=== PATIENT | female | born 1965 | race Caucasian/White ===

== ENCOUNTER 2020-08-06 15:20 | Emergency (ER) | payer BC ==
[~2020-08-06] VITALS: Ht 163 cm; Wt 85.0 kg
--- NOTE | 2020-08-06 15:50 | ED Chest Pain ---
General Chief Complaint: Chest Pain Stated Complaint: SPITTING UP BLOOD/CHEST PAIN Source: patient Exam Limitations: no limitations History of Present Illness Date Seen by Provider: Aug 06, 2020 Time Seen by Provider: 15:48 Initial Comments ER with reports of spitting up blood. She is on Eliquis for history of atrial fibrillation and congestive heart failure. She admits she is not entirely compliant with taking it and she takes it when she remembers. 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 She came off of quarantine for Covid after having it, she was released the day after [place]. She has persistent dyspnea on exertion, chest pain. Today after having a bowel movement she noticed some blood in her mouth that she spit out. She does not believe that she coughed it up nor did she vomited up, she is not sure where it came from. Timing/Duration: changing over time Severity/Quality: moderate Location: central Radiation: no radiation Activities at Onset: none ASA po [employer]IC: No NTG SL [employer] MECH[employer]IC: No Associated Symptoms: shortness of breath Allergies and Home Medications Allergies Coded Allergies: No Allergy Information Available (Unverified , 08/06/20) Patient Home Medication List Home Medication List Reviewed: Yes Review of Systems Review of Systems Constitutional: see HPI; No chills, No fever EENTM: No Symptoms Reported Respiratory: See HPI; Denies Cough; Shortness of Air Cardiovascular: See HPI, Chest Pain Gastrointestinal: No Symptoms Reported Genitourinary: No Symptoms Reported Musculoskeletal: no symptoms reported Skin: no symptoms reported Psychiatric/Neurological: No Symptoms Reported, Emotional Problems Hematologic/Lymphatic: No Symptoms Reported Physical Exam Vital Signs Vital Signs - First Documented Capillary Refill : Height, Weight, BMI Height: '" Weight: lbs. oz. kg; BMI Method: General Appearance: No Apparent Distress, WD/WN HEENT: Other (Upon inspection of the oropharynx there is some hyperemia and a very small amount of blood in the upper oropharynx. There is no blood in either nostril. Additionally this tissue in the upper oropharynx is inflamed.) Neck: Full Range of Motion, Normal Inspection Respiratory: Lungs Clear, Normal Breath Sounds, No Accessory Muscle Use, No Respiratory Distress Cardiovascular: Regular Rate, Rhythm, Normal Peripheral Pulses Gastrointestinal: Normal Bowel Sounds, Non Tender, Soft Extremity: Normal Capillary Refill, Normal Inspection Neurologic/Psychiatric: Alert, Oriented x3 Skin: Normal Color, Warm/Dry Progress/Results/Core Measures Results/Orders Lab Results Laboratory Tests Test 08/06/20 15:58 Range/Units White Blood Count 5.2 4.3-11.0 10^3/uL Red Blood Count 4.15 3.80-5.11 10^6/uL Hemoglobin 12.0 11.5-16.0 g/dL Hematocrit 36 35-52 % Mean Corpuscular Volume 86 80-99 fL Mean Corpuscular Hemoglobin 29 25-34 pg Mean Corpuscular Hemoglobin Concent 34 32-36 g/dL Red Cell Distribution Width 13.0 10.0-14.5 % Platelet Count 223 130-400 10^3/uL Mean Platelet Volume 10.2 9.0-12.2 fL Immature Granulocyte % (Auto) 0 % Neutrophils (%) (Auto) 48 42-75 % Lymphocytes (%) (Auto) 41 12-44 % Monocytes (%) (Auto) 9 0-12 % Eosinophils (%) (Auto) 2 0-10 % Basophils (%) (Auto) 1 0-10 % Neutrophils # (Auto) 2.5 1.8-7.8 10^3/uL Lymphocytes # (Auto) 2.1 1.0-4.0 10^3/uL Monocytes # (Auto) 0.4 0.0-1.0 10^3/uL Eosinophils # (Auto) 0.1 0.0-0.3 10^3/uL Basophils # (Auto) 0.0 0.0-0.1 10^3/uL Immature Granulocyte # (Auto) 0.0 0.0-0.1 10^3/uL D-Dimer 0.30 0.00-0.49 UG/ML Sodium Level 140 135-145 MMOL/L Potassium Level 3.6 3.6-5.0 MMOL/L Chloride Level 106 98-107 MMOL/L Carbon Dioxide Level 27 21-32 MMOL/L Anion Gap 7 5-14 MMOL/L Blood Urea Nitrogen 16 7-18 MG/DL Creatinine 0.81 0.60-1.30 MG/DL Estimat Glomerular Filtration Rate > 60 BUN/Creatinine Ratio 20 Glucose Level 87 70-105 MG/DL Calcium Level 9.3 8.5-10.1 MG/DL Corrected Calcium 9.1 8.5-10.1 MG/DL Total Bilirubin 0.6 0.1-1.0 MG/DL Aspartate Amino Transf (AST/SGOT) 31 5-34 U/L Alanine Aminotransferase (ALT/SGPT) 34 0-55 U/L Alkaline Phosphatase 77 40-136 U/L Troponin I < 0.028 <0.028 NG/ML C-Reactive Protein High Sensitivity 0.14 0.00-0.50 MG/DL B-Type Natriuretic Peptide 26.1 <100.0 PG/ML Total Protein 7.1 6.4-8.2 GM/DL Albumin 4.2 3.2-4.5 GM/DL My Orders Orders - PIERRE JOSEPH [employer] Cbc With Automated Diff (08/06/20 15:44) Comprehensive Metabolic Panel (08/06/20 15:44) Hs C Reactive Protein (08/06/20 15:44) Fibrin Degradation Products (08/06/20 15:44) Troponin I (08/06/20 15:44) Ekg Tracing (08/06/20 15:44) BNP (08/06/20 15:44) Ct Angio Chest W (08/06/20 15:44) Iohexol Injection (Omnipaque 350 Mg/Ml 1 (08/06/20 16:45) Received Contrast (Hold Metformin- Contr (08/06/20 16:45) Sodium Chloride Flush (Catheter Flush Sy (08/06/20 16:45) Ns (Ivpb) (Sodium Chloride 0.9% Ivpb Bag (08/06/20 16:45) Medications Given in ED Current Medications Medications Dose Ordered Sig/Giselle Route Start Time Stop Time Status Last Admin Dose Admin Iohexol 100 ml ONCE ONCE IV 08/06/20 16:45 08/06/20 16:47 DC 08/06/20 17:05 74 ML Sodium Chloride 10 ml NEEDED PRN IV 08/06/20 16:45 08/06/20 17:05 10 ML Sodium Chloride 100 ml ONCE ONCE IV 08/06/20 16:45 08/06/20 16:47 DC 08/06/20 17:05 80 ML Vital Signs/I&O 08/06/20 08/06/20 15:38 15:38 Temp 36.9 Pulse 72 Resp 18 B/P (MAP) 146/91 (109) Pulse Ox 98 O2 Delivery Room Air Room Air Diagnostic Imaging Diagonstic Imaging: CT Comments NAME: OLESYA NEVES [facility] REC#: [id number] PT STATUS: REG ER : 1965 PHYSICIAN: PIERRE JOSEPH APRN ADMIT DATE: 08/06/20/ER Draft Date of Exam:08/06/20 CT ANGIO CHEST W PROCEDURE: CT angiography of the chest with contrast. TECHNIQUE: Multiple contiguous axial images were obtained through the chest after uneventful bolus administration of intravenous contrast. 3D reconstructed CTA MIP acquisitions were also performed. Auto Exposure Controls were utilized during the CT exam to meet ALARA standards for radiation dose reduction. INDICATION: Chest pain post Covid with hemoptysis There is good opacification of pulmonary arteries. No intraluminal filling defect is identified to indicate embolism. There is mild linear scarring at the level of right minor fissure with linear scarring also seen in the lateral left lower lobe. No significant pleural or pericardial fluid is identified. There is no evidence of pathologic adenopathy. There is mild hiatal hernia. IMPRESSION: Bilateral linear scarring without pulmonary embolism or other acute abnormality seen in the thorax. Dictated on workstation # [id number] Dict: 08/06/20 1711 Trans: 08/06/20 1717 [facility] [id number] Interpreted by: GEMMA VAZQUEZ MD Electronically signed by: Departure Communication (Admissions) Given the normal D-dimer I suspect that the blood in her mouth did not come from the lungs or from PE. She does report a history of Reina's esophagus but has had no recent heartburn or reflux symptoms and she has managed by gastroenterology for this. Given the irritated mucosa in the upper oropharynx I suspect the blood came from this location. She has no sinus congestion or discharge. As such I am not sure that antibiotics would be helpful Impression Primary Impression: Mild epistaxis Additional Impression: Pharyngitis Disposition: HOME, SELF-CARE Condition: Stable Departure-Patient Inst. Decision time for Depature: 17:14 Referrals: JIMY BENNETT MD (PCP/Family) Primary Care Physician Patient Instructions: Nosebleeds (DC) Add. Discharge Instructions: 1. Return to ER for any concerns. Continue with the oral anticoagulants. Follow-up with your doctor this week for recheck. Return to ER for any worsening. Emergency department focuses on treating and ruling out life- threatening diseases. Whenever possible, a diagnosis is given. However, most patients are given an impression based on their history, physical exam, and workup during your brief time in the ER. Information about probable diagnosis and other educational material has been provided. Please take the time to read and understand this information. It is very important that you follow up with a physician as discussed during the visit today. Failure to adhere to your follow-up instructions may lead to severe disability, injury, or so please make sure to keep your appointments or obtain one as requested. PIERRE JOSEPH APRN Aug 06, 2020 15:50
[2020-08-06 16:06] LABS: BASOPHILS % (AUTO) 1 % (0-10); EOSINOPHILS # (AUTO) 0.1 10^3/uL (0.0-0.3); EOSINOPHILS % (AUTO) 2 % (0-10); HEMATOCRIT 36 % (35-52); LYMPHOCYTES # (AUTO) 2.1 10^3/uL (1.0-4.0); LYMPHOCYTES % (AUTO) 41 % (12-44); MEAN CORPUSCULAR HEMOGLOBIN 29 pg (25-34); MEAN CORPUSCULAR HGB CONC 34 g/dL (32-36); MEAN CORPUSCULAR VOLUME 86 fL (80-99); MEAN PLATELET VOLUME 10.2 fL (9.0-12.2); MONOCYTES # (AUTO) 0.4 10^3/uL (0.0-1.0); MONOCYTES % (AUTO) 9 % (0-12); NEUTROPHILS # (AUTO) 2.5 10^3/uL (1.8-7.8); NEUTROPHILS % (AUTO) 48 % (42-75); PLATELET COUNT 223 10^3/uL (130-400); WHITE BLOOD COUNT 5.2 10^3/uL (4.3-11.0)
[2020-08-06 16:25] LABS: ALBUMIN 4.2 GM/DL (3.2-4.5); CHLORIDE 106 MMOL/L (98-107); POTASSIUM 3.6 MMOL/L (3.6-5.0); SODIUM 140 MMOL/L (135-145)
[2020-08-06 16:26] LABS: CALCIUM 9.3 MG/DL (8.5-10.1)
[2020-08-06 16:27] LABS: GLUCOSE 87 MG/DL (70-105); TOTAL PROTEIN 7.1 GM/DL (6.4-8.2)
[2020-08-06 16:28] LABS: CARBON DIOXIDE 27 MMOL/L (21-32)
[2020-08-06 16:29] LABS: BILIRUBIN,TOTAL 0.6 MG/DL (0.1-1.0)
[2020-08-06 16:31] LABS: ALKALINE PHOSPHATASE 77 U/L (40-136); CREATININE SERUM 0.81 MG/DL (0.60-1.30); GFR ESTIMATED > 60
[2020-08-06 16:32] LABS: BUN/CREATININE RATIO 20
[2020-08-06 16:34] LABS: ALANINE AMINOTRANSFERASE 34 U/L (0-55)
[2020-08-06] MEDS ORDERED: NS 100 ML (IVPB) BAG IV ONE (16:45)
[2020-08-06] MEDS ORDERED: CATHETER FLUSH 10 ML SYR IV PRN (16:45)
[2020-08-06] MEDS ORDERED: HOLD METFORMIN - RECEIVED CONTRAST 20 ML VIAL IV SCH (16:45)
[2020-08-06] MEDS ORDERED: IOHEXOL 350 MG/ML 100 ML (OMNIPAQUE 350) VIAL IV ONE (16:45)
--- NOTE | 2020-08-06 17:17 | Diagnostic Imaging Report ---
PROCEDURE: CT angiography of the chest with contrast. TECHNIQUE: Multiple contiguous axial images were obtained through the chest after uneventful bolus administration of intravenous contrast. 3D reconstructed CTA MIP acquisitions were also performed. Auto Exposure Controls were utilized during the CT exam to meet ALARA standards for radiation dose reduction. INDICATION: Chest pain post Covid with hemoptysis. There is good opacification of the pulmonary arteries. No intraluminal filling defect is identified to indicate embolism. There is mild linear scarring at the level of the right minor fissure with linear scarring also seen in the lateral left lower lobe. No significant pleural or pericardial fluid is identified. There is no evidence of pathologic adenopathy. There is mild hiatal hernia. IMPRESSION: Bilateral linear scarring without pulmonary embolism or other acute abnormality seen in the thorax. Dictated by: Dictated on workstation # [id number]
[2020-08-06 17:36] VITALS: BP 147/83
== END 2020-08-06 17:36 | disposition home or self-care (01) ==
LOC: EDUNIT# 15:20 → ER 15:26
DX: R04.0 Epistaxis (principal); J02.9 Acute pharyngitis, unspecified
CPT/HCPCS: 36415; 71275; 80053; 83880; 84484; 85025; 85379; 86141; 93005

== ENCOUNTER → 2020-08-15 | Outpatient (CLI) | payer BC ==
[~2020-08-15] MED LIST: CATHETER FLUSH 10 ML SYR IV PRN; HOLD METFORMIN - RECEIVED CONTRAST 20 ML VIAL IV SCH; IOHEXOL 350 MG/ML 100 ML (OMNIPAQUE 350) VIAL IV ONE; NS 100 ML (IVPB) BAG IV ONE
--- NOTE | 2020-08-15 12:25 | Diagnostic Imaging Report ---
INDICATION: SHORTNESS OF BREATH. TECHNIQUE: Two view chest 12:01 PM CORRELATION STUDY: None FINDINGS: Left-sided dual-chamber pacemaker is present. Heart size upper limits normal. Vasculature within normal limits. The lungs are clear with no consolidating infiltrate. There is no significant pleural effusion or pneumothorax. Slight accentuated thoracic kyphosis with degenerative changes of the thoracic spine. IMPRESSION: 1. Negative for acute abnormality of the chest. Dictated by: Dictated on workstation # [id number]
--- NOTE | 2020-08-15 12:57 | Diagnostic Imaging Report ---
PROCEDURE: CT head without contrast. TECHNIQUE: Multiple contiguous axial images were obtained through the brain without the use of intravenous contrast. Auto Exposure Controls were utilized during the CT exam to meet ALARA standards for radiation dose reduction. INDICATION: Headache and confusion with blurred vision. COMPARISON: No prior studies are available for comparison. FINDINGS: The ventricles and sulci are within normal limits. No sulcal effacement or midline shift is identified. No acute intra-axial or extra-axial hemorrhage is detected. Cisterns are patent. Visualized paranasal sinuses are clear. IMPRESSION: No acute intracranial process is detected. Dictated by: Dictated on workstation # [id number]
--- NOTE | 2020-08-15 13:04 | Diagnostic Imaging Report ---
PROCEDURE: CT angiography of the chest with contrast. TECHNIQUE: Multiple contiguous axial images were obtained through the chest after uneventful bolus administration of intravenous contrast. 3D reconstructed CTA MIP acquisitions were also performed. Auto Exposure Controls were utilized during the CT exam to meet ALARA standards for radiation dose reduction. INDICATION: Chest pain and shortness of air as well as cough. COMPARISON: Correlation is made with prior CT angiogram of the chest from 08/06/2020. FINDINGS: Left chest wall cardiac pacemaker is in place. Evaluation of the pulmonary arterial system is without evidence of thromboembolism. No filling defects are seen within central, lobar, or segmental branches. Thoracic aorta is normal in caliber. The heart is enlarged. There is no pericardial or pleural fluid. There is a moderate-sized hiatal hernia. Lungs appear to be clear. No infiltrate or mass is identified. Upper abdomen is unremarkable. IMPRESSION: 1. No evidence of pulmonary embolism or thoracic aortic dissection. 2. Moderate-sized hiatal hernia. 3. No acute feature is detected. Dictated by: Dictated on workstation # [id number]
== END ==
LOC: RAD 12:15
PROVIDERS: ATTEND Family Medicine
DX: R51.9 Headache, unspecified (principal); K44.9 Diaphragmatic hernia without obstruction or gangrene; R06.02 Shortness of breath; R05 Cough; R41.0 Disorientation, unspecified
CPT/HCPCS: 70450; 71046; 71275

== ENCOUNTER 2020-09-28 06:26 | Emergency (ER) | payer BC ==
[~2020-09-28] VITALS: Ht 162.6 cm; Wt 89.9 kg
[~2020-09-28 06:26] MED LIST changes: +APIX5TAB PO; -CATHETER FLUSH 10 ML SYR IV PRN; +DIAZ5TAB49 PO; +FURO40TA4 PO; -HOLD METFORMIN - RECEIVED CONTRAST 20 ML VIAL IV SCH; -IOHEXOL 350 MG/ML 100 ML (OMNIPAQUE 350) VIAL IV ONE; +LEVO125C4 PO; -NS 100 ML (IVPB) BAG IV ONE
[2020-09-28] MEDS ORDERED: FAMOTIDINE 20MG/2ML IV (PEPCID) IV STA (06:56)
[2020-09-28] MEDS ORDERED: ANTACID SUSP 30 ML UDC (MYLANTA) PO ONE (07:00)
[2020-09-28] MEDS ORDERED: LIDOCAINE 2% VISCOUS 15 ML UDC PO ONE (07:00)
--- NOTE | 2020-09-28 07:05 | ED Abdominal Pain ---
General Chief Complaint: Abdominal/GI Problems Stated Complaint: ABD PAIN,BACK,NAUSEA Nursing Triage Note: TO ED VIA POV AND AMBULATORY TO ROM 5. PT STATES SHE IS SUPPOSED TO HAVE LABWORK DONE HERE AT [address] SCHEDULED AT 0800, BUT IS HAVING "EXCRUTIATING ABD PAIN", NAUSEA FOR SEVERAL DAYS. HAS EGD AND COLONOSCOPY SCHEDULED FOR 10/03/20. Sepsis Screen: No Definite Risk Source of Information: Patient Exam Limitations: No Limitations History of Present Illness Date Seen by Provider: Sep 28, 2020 Time Seen by Provider: 06:42 Initial Comments Patient presents to the ER by private conveyance with chief complaint of about 3 or 4 days progressively worsening, constant epigastric abdominal pain. She says it is worse with eating. She is had some loose stools with blood in it. She is also had some spitting up of blood. She has a history of significant Reina's esophagitis, GERD, hiatal hernia status post laparoscopic surgery repair. She is not having any nausea fever or chills. She denies a history of diverticulitis. She sees a boot and saddle repair person on [place] but she cannot remember the name. She had Covid a few months ago and was following up with Dr. Costa, pulmonology with a CT and lab outpatient today and because of the pain decided instead to check into the ER. She is on Nexium for her acid reflux. She has a history of atrial fibrillation status post multiple ablations on Eliquis followed by Dr. Grider at [facility]. Dr. Nunn in [place] is her primary care doctor. No history of diabetes or pancreatitis. She has had cholecystectomy, appendectomy, hysterectomy as well as surgical hiatal hernia repair. She has endoscopy scheduled 5 days from now upper and lower pursuant to her recent bleeding. She rates her pain as a 8 out of 10. She endorses malodorous urine today. Allergies and Home Medications Allergies Coded Allergies: Latex, Natural Rubber (Unverified Allergy, Intermediate, Shortness of Breath, 09/27/20) Home Medications Apixaban 5 Mg Tablet, 5 MG PO DAILY, (Reported) Diazepam 5 Mg Tablet, 5 MG PO PRN, (Reported) Furosemide 40 Mg Tablet, 40 MG PO DAILY, (Reported) Levothyroxine Sodium 125 Mcg Capsule, 125 MCG PO DAILY, (Reported) Patient Home Medication List Home Medication List Reviewed: Yes Review of Systems Review of Systems Constitutional: No chills, No diaphoresis EENTM: No Blurred Vision, No Eye Pain Respiratory: Denies Cough, Denies Shortness of Air Cardiovascular: Denies Chest Pain, Denies Lightheadedness Gastrointestinal: Denies Abdomen Distended; Abdominal Pain; Denies Constipated; Diarrhea (Nonwatery, loose stool with occasional bright red blood); Denies Nausea, Denies Poor Fluid Intake, Denies Vomiting Genitourinary: See HPI; Denies Burning, Denies Discharge; Other (Malodorous) Musculoskeletal: No back pain, No joint pain Psychiatric/Neurological: Anxiety; Denies Depressed All Other Systems Reviewed Negative Unless Noted: Yes Past Kxlvdic-Tacnqh-Cmfpuq Hx Patient Social History Alcohol Use: Denies Use Number of Drinks Today: GG Alcohol Beverage of Choice: Whiskey 2nd Hand Smoke Exposure: No Recent Infectious Disease Expo: No Recent Hopitalizations: Yes Seasonal Allergies Seasonal Allergies: Yes Past Medical History Appendectomy, Bladder Surgery, Gallbladder, Hysterectomy, Pacemaker, Tonsillectomy Cardiac: Yes (ABLATION, CHF) Atrial Fibrillation, Valvular Heart Disease Neurological: Yes Headaches /Migraines 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 oz. kg; 34.00 BMI Method: General Appearance: WD/WN, mild distress HEENT: PERRL/EOMI, pharynx normal Neck: full range of motion, normal inspection Respiratory: lungs clear, normal breath sounds, no respiratory distress, no accessory muscle use Cardiovascular: normal peripheral pulses, regular rate, rhythm Peripheral Pulses: 2+ Radial Pulses (R), 2+ Radial Pulses (L) Gastrointestinal: normal bowel sounds, non tender, soft Extremities: normal range of motion, normal inspection, normal capillary refill Neurologic/Psychiatric: alert, normal mood/affect, oriented x 3 Skin: normal color, warm/dry Progress/Results/Core Measures Results/Orders Lab Results Laboratory Tests Test 09/28/20 07:05 09/28/20 07:20 Range/Units Urine Color YELLOW Urine Clarity CLEAR Urine pH 7.0 5-9 Urine Specific [place] 1.020 1.016-1.022 Urine Protein NEGATIVE NEGATIVE Urine Glucose (UA) NEGATIVE NEGATIVE Urine Ketones NEGATIVE NEGATIVE Urine Nitrite NEGATIVE NEGATIVE Urine Bilirubin NEGATIVE NEGATIVE Urine Urobilinogen 0.2 < = 1.0 MG/DL Urine Leukocyte Esterase NEGATIVE NEGATIVE Urine RBC (Auto) TRACE-I NEGATIVE Urine RBC 2-5 H /HPF Urine WBC NONE /HPF Urine Squamous Epithelial Cells 0-2 /HPF Urine Crystals NONE /LPF Urine Bacteria NEGATIVE /HPF Urine Casts NONE /LPF Urine Mucus NEGATIVE /LPF Urine Culture Indicated NO White Blood Count 5.3 4.3-11.0 10^3/uL Red Blood Count 4.55 3.80-5.11 10^6/uL Hemoglobin 13.3 11.5-16.0 g/dL Hematocrit 39 35-52 % Mean Corpuscular Volume 86 80-99 fL Mean Corpuscular Hemoglobin 29 25-34 pg Mean Corpuscular Hemoglobin Concent 34 32-36 g/dL Red Cell Distribution Width 13.0 10.0-14.5 % Platelet Count 239 130-400 10^3/uL Mean Platelet Volume 10.1 9.0-12.2 fL Immature Granulocyte % (Auto) 0 % Neutrophils (%) (Auto) 45 42-75 % Lymphocytes (%) (Auto) 44 12-44 % Monocytes (%) (Auto) 8 0-12 % Eosinophils (%) (Auto) 3 0-10 % Basophils (%) (Auto) 1 0-10 % Neutrophils # (Auto) 2.4 1.8-7.8 10^3/uL Lymphocytes # (Auto) 2.3 1.0-4.0 10^3/uL Monocytes # (Auto) 0.4 0.0-1.0 10^3/uL Eosinophils # (Auto) 0.1 0.0-0.3 10^3/uL Basophils # (Auto) 0.0 0.0-0.1 10^3/uL Immature Granulocyte # (Auto) 0.0 0.0-0.1 10^3/uL Sodium Level 140 135-145 MMOL/L Potassium Level 4.1 3.6-5.0 MMOL/L Chloride Level 108 H 98-107 MMOL/L Carbon Dioxide Level 22 21-32 MMOL/L Anion Gap 10 5-14 MMOL/L Blood Urea Nitrogen 23 H 7-18 MG/DL Creatinine 0.78 0.60-1.30 MG/DL Estimat Glomerular Filtration Rate > 60 BUN/Creatinine Ratio 29 Glucose Level 104 70-105 MG/DL Calcium Level 9.3 8.5-10.1 MG/DL Corrected Calcium 8.9 8.5-10.1 MG/DL Total Bilirubin 0.5 0.1-1.0 MG/DL Aspartate Amino Transf (AST/SGOT) 21 5-34 U/L Alanine Aminotransferase (ALT/SGPT) 28 0-55 U/L Alkaline Phosphatase 96 40-136 U/L Total Protein 7.7 6.4-8.2 GM/DL Albumin 4.5 3.2-4.5 GM/DL Lipase 30 8-78 U/L My Orders Orders - HUBERT GENTILE Ed Iv/Invasive Line Start (09/28/20 06:56) Ns Iv 1000 Ml (Sodium Chloride 0.9%) (09/28/20 07:00) Lidocaine 2% Viscous 15 Ml (Xylocaine Vi (09/28/20 07:00) Antacid Suspension (Mylanta Suspension (09/28/20 07:00) Famotidine Injection (Pepcid Injection) (09/28/20 06:56) Cbc With Automated Diff (09/28/20 06:56) Comprehensive Metabolic Panel (09/28/20 06:56) Lipase (09/28/20 06:56) Ua Culture If Indicated (09/28/20 06:56) Ct Chest/Abdomen/Pelvis W (09/28/20 07:17) Iohexol Injection (Omnipaque 350 Mg/Ml 1 (09/28/20 08:00) Received Contrast (Hold Metformin- Contr (09/28/20 08:00) Sodium Chloride Flush (Catheter Flush Sy (09/28/20 08:00) Ns (Ivpb) (Sodium Chloride 0.9% Ivpb Bag (09/28/20 08:00) Fentanyl Inj (Sublimaze Injection) (09/28/20 08:15) Medications Given in ED Current Medications Medications Dose Ordered Sig/Giselle Route Start Time Stop Time Status Last Admin Dose Admin Al Hydrox/Mg Hydrox/Simethicone 30 ml ONCE ONCE PO 09/28/20 07:00 09/28/20 07:01 DC 09/28/20 07:43 30 ML Fentanyl Citrate 25 mcg ONCE ONCE IVP 09/28/20 08:15 09/28/20 08:16 DC 09/28/20 08:17 25 MCG Iohexol 100 ml ONCE ONCE IV 09/28/20 08:00 09/28/20 08:01 DC 09/28/20 07:53 100 ML Lidocaine HCl 15 ml ONCE ONCE PO 09/28/20 07:00 09/28/20 07:01 DC 09/28/20 07:39 15 ML Sodium Chloride 10 ml NEEDED PRN IV 09/28/20 08:00 09/28/20 07:53 10 ML Sodium Chloride 100 ml ONCE ONCE IV 09/28/20 08:00 09/28/20 08:01 DC 09/28/20 07:53 80 ML Vital Signs/I&O 09/28/20 06:50 Temp 36.2 Pulse 80 Resp 16 B/P (MAP) 159/91 (113) O2 Delivery Room Air Blood Pressure Mean: 113 Progress Progress Note #1: Time: 07:10 Progress Note Patient could be having pancreatitis/diverticulitis or other complications related to her inflamed esophagitis/gastritis. We will start with a GI cocktail and it is CT scan since she is having some bloody stool. She is on Eliquis and she has endoscopy already scheduled. We will get some labs including a lipase. She complained of malodorous urine so we will check a urinalysis. The patient had a CT of her chest scheduled by her claims specialist for post Covid symptoms. She is not having any concerning symptoms today about her chest emergently however to save her from having to be dosed with contrast twice we will go ahead and order the CT chest in addition to the abdomen and pelvis. Progress Note #2: Time: 08:33 Progress Note Patient had significant relief of pain with a GI cocktail but is still having some discomfort so 25 mcg of fentanyl were ordered. Labs and CT were unreveal ing of any significant emergent source of her pain. Suspect this could just be related to gastritis. Little bit of an air-fluid level in the stomach and proximal small intestine could be related to bleeding ulcer, PUD etc. No evidence of perforation or abscess. After the fentanyl the patient's pain is down to a 3 out of 10. We are going to provide her with sucralfate, ondansetron and Toradol with return precautions and instructed her to keep her scheduled appointment for endoscopy next week. Diagnostic Imaging Diagonstic Imaging: CT (With) Plain Films/CT/US/NM/MRI: chest, abdomen, pelvis Comments NAME: OLESYA NEVES [facility] REC#: [id number] PT STATUS: REG ER : 1965 PHYSICIAN: HUBERT GENTILE MD ADMIT DATE: 09/28/20/ER Draft Date of Exam:09/28/20 CT CHEST/ABDOMEN/PELVIS W PROCEDURE: CT chest, abdomen, and pelvis with contrast. TECHNIQUE: Multiple contiguous axial images were obtained through the chest, abdomen, and pelvis after the administration of intravenous contrast. Auto Exposure Controls were utilized during the CT exam to meet ALARA standards for radiation dose reduction. INDICATION: Epigastric pain. FINDINGS: There is some discoid atelectasis in the right upper lung. Lungs otherwise clear. There are no effusions or pneumothoraces. Vascular structures are unremarkable. There is a sliding hiatal hernia. Liver appears normal. Gallbladder is surgically absent. Spleen is not enlarged. Pancreas appears normal. Common duct is not dilated. Portal vein is patent. Kidneys and adrenals appear normal. Aorta and IVC appear normal. Small bowel is not dilated. Appendix appears to be surgically absent. Colon is unremarkable. Uterus is surgically absent. There is no intraperitoneal free air or free fluid. IMPRESSION: Sliding hiatal hernia. No acute abnormality seen in the chest, abdomen or pelvis. Dictated on workstation # [id number] Dict: 09/28/20 0816 Trans: 09/28/20 0829 [id number] Interpreted by: MERCEDES BROWN MD Electronically signed by: Reviewed: Reviewed by Me Departure Impression Primary Impression: Gastritis and gastroduodenitis Disposition: 01 HOME, SELF-CARE Condition: Improved Departure-Patient Inst. Decision time for Depature: 08:51 Referrals: JIMY NUNN MD (PCP/Family) Primary Care Physician Patient Instructions: Gastritis (DC) Add. Discharge Instructions: I suspect you have irritation of the lining of your stomach and first portion of your intestine. There is no evidence of perforation or immediate life- threatening injury however if your symptoms worsen and you develop fever, intractable pain despite the medications were going to put you on or intractable nausea and vomiting please return to the nearest ER for further evaluation. Ondansetron/Zofran 1 tablet every 6 hours underneath the tongue as necessary for nausea and/or vomiting. Continue taking your medications as prescribed. Tylenol 650 mg every 8 hours as necessary for pain. Maalox, Mylanta, Tums or Rolaids as necessary for increasing pain. Carafate 1 tablet 30 minutes prior to eating and at bedtime for a total of 4 times a day for the next week. Hydrocodone 1 tablet every 6 hours as necessary for severe breakthrough pain. Keep your follow-up appointment with the boot and saddle repair person for endoscopy next week. All discharge instructions reviewed with patient and/or family. Voiced understanding. Scripts Hydrocodone/Acetaminophen (Hydrocodone-Acetamin 5-325 mg) 1 Each Tablet 1 TAB PO Q4H PRN for PAIN-MODERATE (5-7), #10 TAB 0 Refills Prov: HUBERT GENTILE 09/28/20 Ondansetron (Ondansetron Odt) 4 Mg Tab.rapdis 4 MG PO Q6H PRN for NAUSEA/VOMITING, #15 TAB 0 Refills Prov: HUBERT GENTILE 09/28/20 Sucralfate (Carafate) 1 Gm Tablet 1 GM PO QIDACHS for 7 Days, #28 TAB 0 Refills Prov: HUBERT GENTILE 09/28/20 HUBERT GENTILE Sep 28, 2020 07:05
[2020-09-28 07:14] LABS: BILIRUBIN,URINE NEGATIVE (NEGATIVE); CLARITY,URINE CLEAR; COLOR,URINE YELLOW; GLUCOSE, URINE (UA) NEGATIVE (NEGATIVE); KETONES,URINE NEGATIVE (NEGATIVE); LEUKOCYTE ESTERASE ,URINE NEGATIVE (NEGATIVE); NITRITE,URINE NEGATIVE (NEGATIVE); PROTEIN,URINE NEGATIVE (NEGATIVE)
[2020-09-28 07:23] LABS: BACTERIA,URINE NEGATIVE /HPF; SQUAMOUS EPITHELIAL CELL,UR 0-2 /HPF
[2020-09-28] MEDS: NS IV 1000 ML 1,000 ML IV SCH ×2 (07:24→07:40)
[2020-09-28 07:31] LABS: BASOPHILS % (AUTO) 1 % (0-10); EOSINOPHILS # (AUTO) 0.1 10^3/uL (0.0-0.3); EOSINOPHILS % (AUTO) 3 % (0-10); HEMATOCRIT 39 % (35-52); HEMOGLOBIN 13.3 g/dL (11.5-16.0); LYMPHOCYTES # (AUTO) 2.3 10^3/uL (1.0-4.0); LYMPHOCYTES % (AUTO) 44 % (12-44); MEAN CORPUSCULAR HEMOGLOBIN 29 pg (25-34); MEAN CORPUSCULAR HGB CONC 34 g/dL (32-36); MEAN CORPUSCULAR VOLUME 86 fL (80-99); MEAN PLATELET VOLUME 10.1 fL (9.0-12.2); MONOCYTES # (AUTO) 0.4 10^3/uL (0.0-1.0); MONOCYTES % (AUTO) 8 % (0-12); NEUTROPHILS # (AUTO) 2.4 10^3/uL (1.8-7.8); NEUTROPHILS % (AUTO) 45 % (42-75); PLATELET COUNT 239 10^3/uL (130-400); WHITE BLOOD COUNT 5.3 10^3/uL (4.3-11.0)
[2020-09-28 07:49] LABS: ALANINE AMINOTRANSFERASE 28 U/L (0-55); ALBUMIN 4.5 GM/DL (3.2-4.5); ALKALINE PHOSPHATASE 96 U/L (40-136); BILIRUBIN,TOTAL 0.5 MG/DL (0.1-1.0); BUN/CREATININE RATIO 29; CALCIUM 9.3 MG/DL (8.5-10.1); CARBON DIOXIDE 22 MMOL/L (21-32); CHLORIDE 108 MMOL/L (98-107); CREATININE SERUM 0.78 MG/DL (0.60-1.30); GFR ESTIMATED > 60; GLUCOSE 104 MG/DL (70-105); LIPASE 30 U/L (8-78); POTASSIUM 4.1 MMOL/L (3.6-5.0); SODIUM 140 MMOL/L (135-145); TOTAL PROTEIN 7.7 GM/DL (6.4-8.2)
[2020-09-28] MEDS ORDERED: HOLD METFORMIN - RECEIVED CONTRAST 20 ML VIAL IV SCH (08:00)
[2020-09-28] MEDS ORDERED: NS 100 ML (IVPB) BAG IV ONE (08:00)
[2020-09-28] MEDS ORDERED: CATHETER FLUSH 10 ML SYR IV PRN (08:00)
[2020-09-28] MEDS ORDERED: IOHEXOL 350 MG/ML 100 ML (OMNIPAQUE 350) VIAL IV ONE (08:00)
[2020-09-28] MEDS ORDERED: fentaNYL INJ 100 MCG/2 ML AMP IVP ONE (08:15)
--- NOTE | 2020-09-28 08:30 | Diagnostic Imaging Report ---
PROCEDURE: CT chest, abdomen, and pelvis with contrast. TECHNIQUE: Multiple contiguous axial images were obtained through the chest, abdomen, and pelvis after the administration of intravenous contrast. Auto Exposure Controls were utilized during the CT exam to meet ALARA standards for radiation dose reduction. INDICATION: Epigastric pain. FINDINGS: There is some discoid atelectasis in the right upper lung. Lungs otherwise clear. There are no effusions or pneumothoraces. Vascular structures are unremarkable. There is a sliding hiatal hernia. Liver appears normal. Gallbladder is surgically absent. Spleen is not enlarged. Pancreas appears normal. Common duct is not dilated. Portal vein is patent. Kidneys and adrenals appear normal. Aorta and IVC appear normal. Small bowel is not dilated. Appendix appears to be surgically absent. Colon is unremarkable. Uterus is surgically absent. There is no intraperitoneal free air or free fluid. IMPRESSION: Sliding hiatal hernia. No acute abnormality seen in the chest, abdomen or pelvis. Dictated by: Dictated on workstation # [id number]
[2020-09-28] MEDS ORDERED: ONDA4TAB11 PO (08:57)
[2020-09-28] MEDS ORDERED: ACHD5005 PO (08:57)
[2020-09-28] MEDS ORDERED: SUCR1TAB36 PO (08:57)
[2020-09-28 09:04] VITALS: BP 142/89
== END 2020-09-28 09:04 | disposition home or self-care (01) ==
LOC: EDUNIT# 06:26 → ER 06:29
DX: K29.70 Gastritis, unspecified, without bleeding (principal); K29.90 Gastroduodenitis, unspecified, without bleeding; I10 Essential (primary) hypertension; I48.91 Unspecified atrial fibrillation; E03.9 Hypothyroidism, unspecified; Z85.038 Personal history of other malignant neoplasm of large intestine; Z91.040 Latex allergy status; Z79.890 Hormone replacement therapy; Z95.0 Presence of cardiac pacemaker; Z79.01 Long term (current) use of anticoagulants
CPT/HCPCS: 36415; 71260; 74177; 80053; 81000; 83690; 85025

== ENCOUNTER 2020-10-01 05:34 | Outpatient (RCR) | payer BC ==
[~2020-10-01] VITALS: Ht 162.6 cm; Wt 89.9 kg
[~2020-10-01 05:34] MED LIST changes: +ACHD5005 PO; +ONDA4TAB11 PO; +SUCR1TAB36 PO
== END 2020-10-01 13:17 | disposition home or self-care (01) ==
LOC: PREOP 05:34
PROVIDERS: ATTEND Surgery
DX: Z01.812 Encounter for preprocedural laboratory examination (principal); K21.9 Gastro-esophageal reflux disease without esophagitis; K92.1 Melena; Z20.822 Contact with and (suspected) exposure to COVID-19; Z80.0 Family history of malignant neoplasm of digestive organs
CPT/HCPCS: 87635

== ENCOUNTER 2020-10-03 09:36 | Day surgery (SDC) | payer BC ==
[~2020-10-03] VITALS: Ht 162.6 cm; Wt 90.0 kg
[~2020-10-03 09:36] MED LIST changes: +LACTATED RINGERS 1,000 ML IV ONE
[2020-10-03] MEDS ORDERED: LACTATED RINGERS 1,000 ML IV STA (09:44)
[2020-10-03] MEDS ORDERED: HURRICAINE EXT TUBE (BENZOCAINE) XX PRN (09:45)
[2020-10-03] MEDS ORDERED: LIDOCAINE JELLY 2% 6 ML SYRINGE MM PRN (09:45)
--- NOTE | 2020-10-03 09:47 | Progress Note-Pre Operative ---
Pre-Operative Progress Note H&P Reviewed The H&P was reviewed, patient examined and no changes noted. Date Seen by Provider: Oct 03, 2020 Time Seen by Provider: :30 Date H&P Reviewed: Oct 03, 2020 Time H&P Reviewed: 09:30 Pre-Operative Diagnosis: GERD, dysphagia MARIYA HERNANDEZ MD Oct 03, 2020 09:47
--- NOTE | 2020-10-03 09:47 | Conscious Sedation/ASA ---
Conscious Sedation Pre-Proced Time 09:30 ASA Score 2 For ASA 3 and 4: Consider anesthesia and medical clearance. Also, for patients with a history of failed moderate sedation consider anesthesia. Airway Lungs Heart ASA score ASA 1: a normal healthy patient ASA 2: a patient with a mild systemic disease (mid diabetes, controlled hypertension, obesity ASA 3: a patient with a severe systemic disease that limits activity (angina, COPD, prior Myocardial infarction) ASA 4: a patient with an incapacitating disease that is a constant threat to life (CHF, renal failure) ASA 5: a moribund patient not expected to survive 24 hrs. (ruptured aneurysm) ASA 6: a declared brain- patient whose organs are being harvested. For emergent operations, add the letter E after the classification Mallampati Classification Grade 2 Sedation Plan Analgesia, Amnesia, Plan communicated to team members, Discussed options with patient/fam, Discussed risks with patient/fam The patient is an appropriate candidate to undergo the planned procedure, sedation, and anesthesia. The patient immediately re-assessed prior to indication. MARIYA HERNANDEZ MD Oct 03, 2020 09:47
[2020-10-03] MEDS ORDERED: PANT40TA2 PO (09:48)
--- NOTE | 2020-10-03 09:49 | Discharge Inst-Surgical ---
D/C Lap Instructions-KIDO New, Converted, or Re-Newed RX: RX on Chart Follow Up Appt in 2 weeks Activity as tolerated High Fiber Diet 25g or more per day Avoid Alcohol, Caffeine, Spicy Zoar and Acid foods. Drink 64 fluid oz or more of fluids per day. Symptoms to Report: Fever over 101 degree F, Nausea/Vomiting If any problems/questions: Contact your physician or go to Emergency Room MARIYA HERNANDEZ MD Oct 03, 2020 09:49
[2020-10-03] MEDS ORDERED: HYDROcodone/APAP 5 MG/325 MG (LORTAB) TAB PO PRN (10:00)
[2020-10-03] MEDS ORDERED: ONDANSETRON 4 MG/2 ML (SDV) Z0FRAN IVP PRN (10:00)
[2020-10-03] MEDS ORDERED: ACETAMINOPHEN 325 MG TABLET PO PRN (10:00)
[2020-10-03] MEDS ORDERED: morphine INJ 10 MG/ML 1ML (SYR OR VIAL) IVP PRN ×2 (10:00)
[2020-10-03 10:04] VITALS: BP 135/86
[2020-10-03] MEDS ORDERED: PROPOFOL INJECTION 0 ML IV ONE (10:19)
[2020-10-03] MEDS ORDERED: MIDAZOLAM 2 MG/2 ML (VERSED) VIAL ONE (10:19)
[2020-10-03] MEDS ORDERED: LIDOCAINE JELLY 2% 6 ML SYRINGE ONE (10:21)
[2020-10-03] MEDS ORDERED: HURRICAINE EXT TUBE (BENZOCAINE) ONE (10:21)
[2020-10-03] MEDS ORDERED: PROPOFOL INJECTION 50 ML IV ONE (10:48)
[2020-10-03 11:15] VITALS: BP 107/67
[2020-10-03 11:20] VITALS: BP 108/75
[2020-10-03 11:25] VITALS: BP_SYST 115; BP_SYST 132; BP_DIAS 78; BP_DIAS 93
[2020-10-03 11:45] VITALS: BP 115/78
[2020-10-03 11:56] VITALS: BP 115/78
--- NOTE | 2020-10-03 12:16 | Anesthesia-General Post-Op ---
MAC Patient Condition Mental Status/LOC: Same as Preop Cardiovascular: Satisfactory Nausea/Vomiting: Absent Respiratory: Satisfactory Pain: Controlled Complications: Absent Post Op Complications Complications None Follow Up Care/Instructions Patient Instructions None needed. Anesthesiology Discharge Order Discharge Order Patient is doing well, no complaints, stable vital signs, no apparent adverse anesthesia problems. No complications reported per nursing. MARÍA ELENA JARA CRNA Oct 03, 2020 12:16
--- NOTE | 2020-10-03 14:50 | OPERATIVE REPORT ---
DATE OF SERVICE: 10/03/2020 ATTENDING PRIMARY CARE PHYSICIAN: Dr. Heriberto Nunn. PREOPERATIVE DIAGNOSES: Epigastric pain, recurrent reflux, rectal bleeding, family history of colon cancer. POSTOPERATIVE DIAGNOSES: Reflux esophagitis stage II, recurrent hiatal hernia with the previous wrap within the mediastinum, mild gastritis. No distal obstructions. Mild chronic stage II external and internal hemorrhoids. Remainder of the rectum and colon were normal. PROCEDURE: EGD with biopsy, colonoscopy. SURGEON: Mariya Valles MD. ANESTHESIA: Monitored anesthesia care. ESTIMATED BLOOD LOSS: Minimal. FINDINGS: Reflux esophagitis stage II, recurrent hiatal hernia with the previous wrap within the mediastinum, mild gastritis. No distal obstructions. Mild chronic stage II external and internal hemorrhoids. Remainder of the rectum and colon were normal. DISPOSITION: The patient tolerated the procedure well. INDICATIONS: The patient is an 55-year-old female who was referred over to us for worsening reflux as well as epigastric pain. She has had issues with reflux for many years and underwent an EGD when she was living in [place] and was found to have Reina's esophagus and then in 2018, underwent a laparoscopic hiatal hernia repair as well as some type of antireflux procedure. Over the past six months, she has developed recurrent reflux as well as epigastric pain and nausea. She states that she underwent an EGD 11/2019, found to have a reflux esophagitis and recurrent hiatal hernia as well as gastritis. She is also in need of a screening colonoscopy. She does report intermittent episodes of self-limited red blood per rectum and does have a family history of colon cancer with her mother having the disease. DESCRIPTION OF PROCEDURE: The patient was brought to the endoscopy suite, laid in the left lateral decubitus position with head slightly elevated. After adequate IV pain and sedative medications and monitored anesthesia care, the mouthpiece was applied. The endoscope was then placed in the mouth, visualizing the pharynx and hypopharyngeal region. Vocal cords, epiglottis and vallecula identified and appeared to be normal. The endoscope was then gently intubated into the esophageal opening and esophagus insufflated. The endoscope was then advanced to the first, second and third portion of esophagus at the level of GE junction, a reflux esophagitis stage II identified. The GE junction was also intrathoracic as was what appeared to be the previous wrap and it appeared that she had a recurrent hiatal hernia with the previous wrap reflux up into the mediastinum. This was confirmed on retroflexed view of the gastroscope. A biopsy was taken of the GE junction as well as the antrum to rule out H. pylori. There was only a mild gastritis. The endoscope was then advanced to the pylorus and first and second portion of the duodenum, which appeared normal with no distal obstructions. The endoscope was then slowly withdrawn while taking a second look and suctioning of residual air with no additional findings. Under the same anesthesia, we then proceeded with the colonoscopy portion of procedure and a digital rectal examination was performed, which revealed chronic stage II external and internal hemorrhoids, not actively edematous nor inflamed and no bleeding. Normal sphincter tone was felt and there were no palpable masses. The endoscope was then intubated to the anus and rectum gently insufflated. The endoscope was then advanced through the valves of [place] of the rectum with no polyps or any neoplasms identified. Through the sigmoid colon, no diverticulosis identified. The endoscope was then advanced to the remainder of the descending, transverse and ascending colon to the cecum. These segments were normal. No polyps or any neoplasms identified throughout the colon or rectum. Endoscope was then slowly withdrawn while taking a second look and suctioning of residual air with no additional findings. The patient tolerated the procedure well. 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 She also needs to avoid caffeinated beverages, spicy, greasy and acidic foods. If this continues to be symptomatic, she may be a candidate for a revisional foregut surgery for recurrent hiatal hernia; however, in this scenario, we would refer her to a tertiary center. Her colonoscopy for the most, however, was normal and we will recommend continued medical management with a high fiber diet with at least 25 grams of fiber daily and significant amounts of water to promote soft stools on a daily basis. Job ID: [id number] DocumentID: [id number] Dictated Date: 10/03/2020 11:24:28 Python Programmer Date: 10/03/2020 14:50:33 Dictated By: MARIYA VALLES MD
== END 2020-10-03 11:56 | disposition home or self-care (01) ==
LOC: ENDO 09:36
PROVIDERS: ATTEND Surgery
DX: K21.00 Gastro-esophageal reflux disease with esophagitis, without bleeding (principal); K44.9 Diaphragmatic hernia without obstruction or gangrene; K29.70 Gastritis, unspecified, without bleeding; K64.1 Second degree hemorrhoids; I50.9 Heart failure, unspecified; F32.9 Major depressive disorder, single episode, unspecified; I48.91 Unspecified atrial fibrillation; G43.909 Migraine, unspecified, not intractable, without status migrainosus; E03.9 Hypothyroidism, unspecified; Z79.01 Long term (current) use of anticoagulants; Z79.899 Other long term (current) drug therapy; Z79.890 Hormone replacement therapy; Z91.040 Latex allergy status; Z90.710 Acquired absence of both cervix and uterus; Z80.41 Family history of malignant neoplasm of ovary; Z80.0 Family history of malignant neoplasm of digestive organs
CPT/HCPCS: 88305

== ENCOUNTER 2020-10-05 13:11 | Outpatient (CLI) | payer BC ==
[~2020-10-05 13:11] MED LIST changes: -LACTATED RINGERS 1,000 ML IV ONE; +PANT40TA2 PO
== END 2020-10-05 13:45 | disposition home or self-care (01) ==
LOC: SLEEP 13:11
PROVIDERS: ATTEND Nurse Practitioner Family
DX: G47.30 Sleep apnea, unspecified (principal); G47.50 Parasomnia, unspecified; G47.10 Hypersomnia, unspecified
CPT/HCPCS: G0399

== ENCOUNTER 2020-10-10 09:27 | Emergency (ER) | payer BC ==
[~2020-10-10] VITALS: Ht 170 cm; Wt 91.0 kg
[2020-10-10] MEDS ORDERED: FAMOTIDINE 20MG/2ML IV (PEPCID) IV STA (09:50)
[2020-10-10] MEDS ORDERED: NS IV 1000 ML 1,000 ML ONE (09:52)
--- NOTE | 2020-10-10 09:52 | ED Abdominal Pain ---
General Chief Complaint: Abdominal/GI Problems Stated Complaint: ABD PAIN,BACK PAIN Nursing Triage Note: PT AMB TO ROOM 3 PT CO OF ABD PAIN L UPPER AND RADIATES TO BACK, HAS HAD FOR ABOUT 3 WEEKS. PT STATES HAD EDG AND COLONSCOPY LAST WEEK. RATES PAIN 8/10. PT STATES DOES HAVE SOME NAUSEA Sepsis Screen: No Definite Risk Source of Information: Patient Exam Limitations: No Limitations History of Present Illness Date Seen by Provider: Oct 10, 2020 Time Seen by Provider: 09:44 Initial Comments Patient to the ER by private conveyance from home with chief complaint that she is having increasing pain in her left upper quadrant of the abdomen and epigastric region radiating through to her left flank. She says the pain is been going on for the past couple weeks and she was then here and had labs and was referred to Dr. Valles. He did upper and lower endoscopy took biopsies and she has a follow-up appointment today for results. She did take 2 hydrocodone's last night for the pain. She is taking Carafate and pantoprazole but no antiacids. She was told she has a hiatal hernia. She feels a burning sensation to her throat. She has had appendectomy and cholecystectomy. Dr. Valles took her for EGD and colonoscopy on 03 October, 6 days ago. Hemorrhoids, gastritis, hiatal hernia with a previous wrap within the mediastinum. Family history of colon cancer. He recommended PPI, lifestyle recommendations and if it continues she may be a candidate for a revisional forgot surgery for recurrent hiatal hernia. He would recommend at that time to go to a tertiary ce nter since it is a revision. Pathology from same endoscopy demonstrates negative for H. pylori, gastric mucosa with mild chronic inflammation negative for metaplasia and squamous esophageal mucosa. Allergies and Home Medications Allergies Coded Allergies: Latex, Natural Rubber (Unverified Allergy, Intermediate, Shortness of [place] th, 09/27/20) Home Medications Apixaban 5 Mg Tablet, 5 MG PO DAILY, (Reported) Diazepam 5 Mg Tablet, 5 MG PO PRN, (Reported) Furosemide 40 Mg Tablet, 40 MG PO DAILY, (Reported) Hydrocodone/Acetaminophen 1 Each Tablet, 1 TAB PO Q4H PRN for PAIN-MODERATE (5- 7) Prescribed by: HUBERT GENTILE on 09/28/20 0858 Hydrocodone/Acetaminophen 1 Each Tablet, 1 EACH PO Q6H PRN for PAIN-BREAKTHROUGH Prescribed by: HUBERT GENTILE on 10/10/20 1225 Levothyroxine Sodium 125 Mcg Capsule, 125 MCG PO DAILY, (Reported) Ondansetron 4 Mg Tab.rapdis, 4 MG PO Q6H PRN for NAUSEA/VOMITING Prescribed by: HUBERT GENTILE on 09/28/20 0857 Ondansetron 4 Mg Tab.rapdis, 4 MG PO Q6H PRN for NAUSEA/VOMITING Prescribed by: HUBERT GENTILE on 10/10/20 1224 Pantoprazole Sodium 40 Mg Tablet.dr, 40 MG PO DAILY Prescribed by: MARIYA VALLES on 10/03/20 0948 Pantoprazole Sodium 40 Mg Tablet.dr, 40 MG PO BID Prescribed by: HUBERT GENTILE on 10/10/20 1224 Sucralfate 1 Gm Tablet, 1 GM PO QIDACHS Prescribed by: HUBERT GENTILE on 09/28/20 0857 Sucralfate 1 Gm Tablet, 1 GM PO QIDACHS Prescribed by: HUBERT GENTILE on 10/10/20 1224 Patient Home Medication List Home Medication List Reviewed: Yes Review of Systems Review of Systems Constitutional: No chills, No diaphoresis EENTM: No Blurred Vision, No Double Vision Respiratory: Denies Cough, Denies Shortness of Air Cardiovascular: Chest Pain (Burning midepigastric); Denies Edema, Denies Irregular Heart Rate, Denies Lightheadedness, Denies Palpitations, Denies Syncope Gastrointestinal: See HPI, Abdominal Pain; Denies Constipated, Denies Diarrhea; Nausea, Poor Fluid Intake Genitourinary: Denies Burning, Denies Discharge Musculoskeletal: No back pain, No joint pain Skin: No change in color, No dryness Psychiatric/Neurological: Denies Anxiety, Denies Depressed All Other Systems Reviewed Negative Unless Noted: Yes Past Uoxfxkc-Kwbxns-Yexrxy Hx Patient Social History Alcohol Use: Occasionally Uses Alcohol Beverage of Choice: Whiskey Smoking Status: Never a Smoker 2nd Hand Smoke Exposure: No Recent Infectious Disease Expo: No Recent Hopitalizations: Yes Seasonal Allergies Seasonal Allergies: Yes Past Medical History Appendectomy, Bladder Surgery, Gallbladder, Hysterectomy, Pacemaker, Tonsillectomy Cardiac: Yes (ABLATION, CHF) Atrial Fibrillation, Valvular Heart Disease Neurological: Yes Headaches /Migraines [employer] History: Hysterectomy, 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, Menopausal Genitourinary: No (BLADDER SLING) Gastrointestinal: Yes Reina's Esophagus Musculoskeletal: Yes Chronic Back Pain Hypothyroidsim HEENT: No Cancer: Yes (PRE CANCER POLYPS) Colon Psychosocial: Yes Depression Integumentary: Yes Eczema, Psoriasis Blood Disorders: No Family Medical History Colon cancer Physical Exam Vital Signs Vital Signs - First Documented 10/10/20 09:40 Temp 35.7 Pulse 68 Resp 18 B/P (MAP) 156/95 (115) Pulse Ox 99 Capillary Refill : Less Than 3 Seconds Height/Weight/BMI Height: '" Weight: lbs. oz. kg; 31.00 BMI Method: General Appearance: WD/WN, mild distress HEENT: PERRL/EOMI, pharynx normal Neck: full range of motion, normal inspection Respiratory: chest non-tender, lungs clear, normal breath sounds, no respiratory distress, no accessory muscle use Cardiovascular: normal peripheral pulses, regular rate, rhythm Gastrointestinal: normal bowel sounds, soft, no organomegaly, tenderness (Right upper quadrant and epigastric region tender to palpation without Zavala sign) Extremities: non-tender, normal inspection, normal capillary refill Neurologic/Psychiatric: alert, normal mood/affect, oriented x 3 Skin: normal color, warm/dry Progress/Results/Core Measures Results/Orders Lab Results Laboratory Tests Test 10/10/20 09:55 10/10/20 10:17 Range/Units White Blood Count 5.6 4.3-11.0 10^3/uL Red Blood Count 4.64 3.80-5.11 10^6/uL Hemoglobin 13.6 11.5-16.0 g/dL Hematocrit 41 35-52 % Mean Corpuscular Volume 88 80-99 fL Mean Corpuscular Hemoglobin 29 25-34 pg Mean Corpuscular Hemoglobin Concent 33 32-36 g/dL Red Cell Distribution Width 13.1 10.0-14.5 % Platelet Count 246 130-400 10^3/uL Mean Platelet Volume 10.0 9.0-12.2 fL Immature Granulocyte % (Auto) 0 % Neutrophils (%) (Auto) 49 42-75 % Lymphocytes (%) (Auto) 40 12-44 % Monocytes (%) (Auto) 8 0-12 % Eosinophils (%) (Auto) 2 0-10 % Basophils (%) (Auto) 1 0-10 % Neutrophils # (Auto) 2.8 1.8-7.8 10^3/uL Lymphocytes # (Auto) 2.3 1.0-4.0 10^3/uL Monocytes # (Auto) 0.4 0.0-1.0 10^3/uL Eosinophils # (Auto) 0.1 0.0-0.3 10^3/uL Basophils # (Auto) 0.1 0.0-0.1 10^3/uL Immature Granulocyte # (Auto) 0.0 0.0-0.1 10^3/uL Sodium Level 142 135-145 MMOL/L Potassium Level 4.1 3.6-5.0 MMOL/L Chloride Level 108 H 98-107 MMOL/L Carbon Dioxide Level 24 21-32 MMOL/L Anion Gap 10 5-14 MMOL/L Blood Urea Nitrogen 16 7-18 MG/DL Creatinine 0.84 0.60-1.30 MG/DL Estimat Glomerular Filtration Rate > 60 BUN/Creatinine Ratio 19 Glucose Level 94 70-105 MG/DL Calcium Level 9.3 8.5-10.1 MG/DL Corrected Calcium 9.0 8.5-10.1 MG/DL Total Bilirubin 0.4 0.1-1.0 MG/DL Aspartate Amino Transf (AST/SGOT) 29 5-34 U/L Alanine Aminotransferase (ALT/SGPT) 34 0-55 U/L Alkaline Phosphatase 85 40-136 U/L C-Reactive Protein High Sensitivity 0.15 0.00-0.50 MG/DL Total Protein 7.7 6.4-8.2 GM/DL Albumin 4.4 3.2-4.5 GM/DL Lipase 20 8-78 U/L Urine Color YELLOW Urine Clarity SL CLOUDY Urine pH 7.5 5-9 Urine Specific [place] 1.015 L 1.016-1.022 Urine Protein NEGATIVE NEGATIVE Urine Glucose (UA) NEGATIVE NEGATIVE Urine Ketones NEGATIVE NEGATIVE Urine Nitrite NEGATIVE NEGATIVE Urine Bilirubin NEGATIVE NEGATIVE Urine Urobilinogen 0.2 < = 1.0 MG/DL Urine Leukocyte Esterase 1+ H NEGATIVE Urine RBC (Auto) TRACE-I NEGATIVE Urine RBC RARE /HPF Urine WBC 2-5 /HPF Urine Squamous Epithelial Cells 5-10 /HPF Urine Crystals PRESENT H /LPF Urine Amorphous Sediment LARGE GENIE PHOSPHATE H /LPF Urine Bacteria TRACE /HPF Urine Casts NONE /LPF Urine Mucus NEGATIVE /LPF Urine Culture Indicated NO My Orders Orders - HUBERT GENTILE Ua Culture If Indicated (10/10/20 09:50) Lipase (10/10/20 09:50) Cbc With Automated Diff (10/10/20 09:50) Comprehensive Metabolic Panel (10/10/20 09:50) Hs C Reactive Protein (10/10/20 09:50) Lidocaine 2% Viscous 15 Ml (Xylocaine Vi (10/10/20 10:00) Antacid Suspension (Mylanta Suspension (10/10/20 10:00) Famotidine Injection (Pepcid Injection) (10/10/20 09:50) Ondansetron Injection (Zofran Injectio (10/10/20 10:00) Ns Iv 1000 Ml (Sodium Chloride 0.9%) (10/10/20 09:52) Medications Given in ED Current Medications Medications Dose Ordered Sig/Giselle Route Start Time Stop Time Status Last Admin Dose Admin Al Hydrox/Mg Hydrox/Simethicone 30 ml ONCE ONCE PO 10/10/20 10:00 10/10/20 10:01 DC 10/10/20 10:01 30 ML Lidocaine HCl 15 ml ONCE ONCE PO 10/10/20 10:00 10/10/20 10:01 DC 10/10/20 10:01 15 ML Ondansetron HCl 8 mg ONCE ONCE IVP 10/10/20 10:00 10/10/20 10:01 DC 10/10/20 10:01 8 MG Sodium Chloride 1,000 ml @ STK-MED ONCE .ROUTE 10/10/20 09:52 10/10/20 09:59 DC 10/10/20 10:02 1,000 MLS/HR Vital Signs/I&O 10/10/20 10/10/20 09:40 12:45 Temp 35.7 Pulse 68 61 Resp 18 18 B/P (MAP) 156/95 (115) 159/92 Pulse Ox 99 100 Blood Pressure Mean: 115 Progress Progress Note : Time: 12:03 Progress Note GI cocktail did help the burning in her chest however her pain around her side is still there. Were going to give her some hydrocodone and some Zofran and have her follow-up in 2 hours with her schedule appointment with Dr. Valles. It seems like his recommendation would be probably to go on for surgical revision of a sliding hiatal hernia which appears to be the source of her discomfort. Departure Communication (PCP) Discussed the case with general surgery, Dr. Valles who is familiar with the patient. He recommends lifestyle and diet changes. He recommends doubling her PPI and continuing the Carafate. Follow-up with him. Impression Primary Impression: Hiatal hernia Disposition: HOME, SELF-CARE Condition: Stable Departure-Patient Inst. Decision time for Depature: 12:18 Referrals: MARIYA VALLES MD, JONATHAN L MD (PCP/Family) Primary Care Physician Patient Instructions: Hiatal Hernia (DC) Add. Discharge Instructions: Dr. Valles again recommends follow-up in the clinic today. He wants you to avoid greasy, spicy foods. Increase your fiber. Smaller meals more frequently can be helpful. Double your pantoprazole to 40 mg twice a day. I have written you another prescription for Carafate which he wanted to continue for another couple weeks after your first prescription is done. Hydrocodone 1 tablet every 6 hours as necessary for breakthrough pain. Ondansetron 1 tablet every 6 hours as necessary for nausea. Tylenol 650 mg every 8 hours as necessary for pain. All discharge instructions reviewed with patient and/or family. Voiced understanding. Scripts Hydrocodone/Acetaminophen (Hydrocodone-Acetamin 7.5-325) 1 Each Tablet 1 EACH PO Q6H PRN for PAIN-BREAKTHROUGH, #20 TAB 0 Refills Prov: HUBERT GENTILE 10/10/20 Pantoprazole Sodium (Pantoprazole Sodium) 40 Mg Tablet.dr 40 MG PO BID for 14 Days, #30 TAB 0 Refills Prov: HUBERT GENTILE 10/10/20 Ondansetron (Ondansetron Odt) 4 Mg Tab.rapdis 4 MG PO Q6H PRN for NAUSEA/VOMITING, #20 TAB 0 Refills Prov: HUBERT GENTILE 10/10/20 Sucralfate (Carafate) 1 Gm Tablet 1 GM PO QIDACHS for 14 Days, #56 TAB 0 Refills Prov: HUBERT GENTILE 10/10/20 HUBERT GENTILE Oct 10, 2020 09:52
[2020-10-10] MEDS ORDERED: LIDOCAINE 2% VISCOUS 15 ML UDC PO ONE (10:00)
[2020-10-10] MEDS ORDERED: ONDANSETRON 4 MG/2 ML (SDV) Z0FRAN IVP ONE (10:00)
[2020-10-10] MEDS ORDERED: ANTACID SUSP 30 ML UDC (MYLANTA) PO ONE (10:00)
[2020-10-10 10:03] LABS: BASOPHILS # (AUTO) 0.1 10^3/uL (0.0-0.1); BASOPHILS % (AUTO) 1 % (0-10); EOSINOPHILS # (AUTO) 0.1 10^3/uL (0.0-0.3); EOSINOPHILS % (AUTO) 2 % (0-10); HEMATOCRIT 41 % (35-52); HEMOGLOBIN 13.6 g/dL (11.5-16.0); LYMPHOCYTES # (AUTO) 2.3 10^3/uL (1.0-4.0); LYMPHOCYTES % (AUTO) 40 % (12-44); MEAN CORPUSCULAR HEMOGLOBIN 29 pg (25-34); MEAN CORPUSCULAR HGB CONC 33 g/dL (32-36); MEAN CORPUSCULAR VOLUME 88 fL (80-99); MONOCYTES # (AUTO) 0.4 10^3/uL (0.0-1.0); MONOCYTES % (AUTO) 8 % (0-12); NEUTROPHILS # (AUTO) 2.8 10^3/uL (1.8-7.8); NEUTROPHILS % (AUTO) 49 % (42-75); PLATELET COUNT 246 10^3/uL (130-400); WHITE BLOOD COUNT 5.6 10^3/uL (4.3-11.0)
[2020-10-10 10:13] LABS: ALBUMIN 4.4 GM/DL (3.2-4.5); CHLORIDE 108 MMOL/L (98-107); POTASSIUM 4.1 MMOL/L (3.6-5.0); SODIUM 142 MMOL/L (135-145)
[2020-10-10 10:14] LABS: CALCIUM 9.3 MG/DL (8.5-10.1)
[2020-10-10 10:15] LABS: GLUCOSE 94 MG/DL (70-105)
[2020-10-10 10:16] LABS: TOTAL PROTEIN 7.7 GM/DL (6.4-8.2)
[2020-10-10 10:17] LABS: BILIRUBIN,TOTAL 0.4 MG/DL (0.1-1.0); CARBON DIOXIDE 24 MMOL/L (21-32)
[2020-10-10 10:19] LABS: ALKALINE PHOSPHATASE 85 U/L (40-136); CREATININE SERUM 0.84 MG/DL (0.60-1.30); GFR ESTIMATED > 60
[2020-10-10 10:20] LABS: BUN/CREATININE RATIO 19
[2020-10-10 10:22] LABS: ALANINE AMINOTRANSFERASE 34 U/L (0-55)
[2020-10-10 10:23] LABS: LIPASE 20 U/L (8-78)
[2020-10-10 10:24] LABS: BILIRUBIN,URINE NEGATIVE (NEGATIVE); CLARITY,URINE SL CLOUDY; COLOR,URINE YELLOW; GLUCOSE, URINE (UA) NEGATIVE (NEGATIVE); KETONES,URINE NEGATIVE (NEGATIVE); LEUKOCYTE ESTERASE ,URINE 1+ (NEGATIVE); NITRITE,URINE NEGATIVE (NEGATIVE); PH,URINE 7.5 (5-9); PROTEIN,URINE NEGATIVE (NEGATIVE)
[2020-10-10 10:45] LABS: BACTERIA,URINE TRACE /HPF; RBC,URINE RARE /HPF
[2020-10-10 10:46] LABS: AMORPHOUS SEDIMENT,UR LARGE AMOR PHOSPHATE /LPF
[2020-10-10] MEDS ORDERED: HYDR-3817 PO ×2 (12:22→12:24)
[2020-10-10] MEDS ORDERED: SUCR1TAB36 PO ×2 (12:22→12:24)
[2020-10-10] MEDS ORDERED: PANT40TA52 PO ×2 (12:22→12:24)
[2020-10-10] MEDS ORDERED: ONDA4TAB11 PO ×2 (12:22→12:24)
[2020-10-10 12:45] VITALS: BP 159/92
== END 2020-10-10 12:45 | disposition home or self-care (01) ==
LOC: EDUNIT# 09:27 → ER 09:28
DX: K44.9 Diaphragmatic hernia without obstruction or gangrene (principal); I48.91 Unspecified atrial fibrillation; G43.909 Migraine, unspecified, not intractable, without status migrainosus; E03.9 Hypothyroidism, unspecified; F32.9 Major depressive disorder, single episode, unspecified; F41.9 Anxiety disorder, unspecified; Z85.038 Personal history of other malignant neoplasm of large intestine; Z79.01 Long term (current) use of anticoagulants; Z79.890 Hormone replacement therapy; Z91.040 Latex allergy status
CPT/HCPCS: 36415; 80053; 81000; 83690; 85025; 86141

== ENCOUNTER 2020-10-26 15:00 | Emergency (ER) | payer BC ==
[~2020-10-26] VITALS: Ht 162.5 cm; Wt 90.0 kg
[~2020-10-26 15:00] MED LIST changes: +HYDR-3817 PO; +PANT40TA52 PO
--- NOTE | 2020-10-26 15:29 | ED Back Pain ---
General Chief Complaint: Back Problems Stated Complaint: BACK PAIN Source of Information: Patient Exam Limitations: No Limitations History of Present Illness Date Seen by Provider: Oct 26, 2020 Time Seen by Provider: 15:26 Initial Comments To ER with reports of mid back pain and specifically on the right side. It does not radiate down either leg. No fevers or chills. No nausea or vomiting. No numbness of genitals. She does report some blood in her urine. Concerned she may have a kidney stone. Location: Lumbar Spine Timing/Duration: 2-3 Days Severity: Moderate Method of Injury: Unknown Associated Symptoms: denies symptoms Allergies and Home Medications Allergies Coded Allergies: Latex, Natural Rubber (Unverified Allergy, Intermediate, Shortness of Breath, 09/27/20) Home Medications Apixaban 5 Mg Tablet, 5 MG PO DAILY, (Reported) Diazepam 5 Mg Tablet, 5 MG PO PRN, (Reported) Furosemide 40 Mg Tablet, 40 MG PO DAILY, (Reported) Hydrocodone/Acetaminophen 1 Each Tablet, 1 TAB PO Q4H PRN for PAIN-MODERATE (5- 7) Prescribed by: HUBERT GENTILE on 09/28/20 0858 Hydrocodone/Acetaminophen 1 Each Tablet, 1 EACH PO Q6H PRN for PAIN-BREAKTHROUGH Prescribed by: HUBERT GENTILE on 10/10/20 1225 Levothyroxine Sodium 125 Mcg Capsule, 125 MCG PO DAILY, (Reported) Ondansetron 4 Mg Tab.rapdis, 4 MG PO Q6H PRN for NAUSEA/VOMITING Prescribed by: HUBERT GENTILE on 09/28/20 0857 Ondansetron 4 Mg Tab.rapdis, 4 MG PO Q6H PRN for NAUSEA/VOMITING Prescribed by: HUBERT GENTILE on 10/10/20 1224 Pantoprazole Sodium 40 Mg Tablet., 40 MG PO DAILY Prescribed by: MARIYA HERNANDEZ on 10/03/20 0948 Pantoprazole Sodium 40 Mg Tablet., 40 MG PO BID Prescribed by: HUBERT GENTILE on 10/10/20 1224 Sucralfate 1 Gm Tablet, 1 GM PO QIDACHS Prescribed by: HUBERT GENTILE on 09/28/20 0857 Sucralfate 1 Gm Tablet, 1 GM PO QIDACHS Prescribed by: HUBERT GENTILE on 10/10/20 1224 Patient Home Medication List Home Medication List Reviewed: Yes Review of Systems Constitutional: see HPI EENTM: see HPI Respiratory: no symptoms reported Cardiovascular: no symptoms reported Genitourinary: no symptoms reported Musculoskeletal: see HPI, back pain Skin: no symptoms reported Psychiatric/Neurological: No Symptoms Reported Past Ttosytu-Ygsezt-Mphyhm Hx Patient Social History Alcohol Use: Denies Use Number of Drinks Today: GG Alcohol Beverage of Choice: Whiskey 2nd Hand Smoke Exposure: No Recent Hopitalizations: No Immunizations Up To Date Tetanus Booster (TDap): Less than 5yrs PED Vaccines UTD: Yes Seasonal Allergies Seasonal Allergies: Yes Past Medical History Surgeries: Yes (DNC'S, LAPAROSCOPY, UVULA REMOVED) Appendectomy, Bladder Surgery, Gallbladder, Hysterectomy, Pacemaker, Tonsillectomy Cardiac: Yes (ABLATION, CHF) Atrial Fibrillation, Valvular Heart Disease Neurological: Yes Headaches /Migraines [employer] History: Hysterectomy, 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, Menopausal Genitourinary: No (BLADDER SLING) Gastrointestinal: Yes Reina's Esophagus Musculoskeletal: Yes Chronic Back Pain Hypothyroidsim HEENT: No Cancer: Yes (PRE CANCER POLYPS) Colon Psychosocial: Yes Depression Integumentary: Yes Eczema, Psoriasis Blood Disorders: No Family Medical History Colon cancer Physical Exam Vital Signs Vital Signs - First Documented 10/26/20 15:09 Temp 36.7 Pulse 74 Resp 16 B/P (MAP) 166/94 (118) Pulse Ox 97 O2 Delivery Room Air Capillary Refill : Height, Weight, BMI Height: '" Weight: lbs. oz. kg; 31.00 BMI Method: General Appearance: No Apparent Distress, WD/WN Neck: Full Range of Motion, Normal Inspection Cardiovascular: Regular Rate, Rhythm, Normal Peripheral Pulses Respiratory: Lungs Clear, Normal Breath Sounds, No Accessory Muscle Use, No Respiratory Distress Gastrointestinal: Normal Bowel Sounds, Non Tender, Soft Extremity: Normal Capillary Refill, Normal Inspection Neurologic/Psychiatric: Alert, Oriented x3 Skin: Normal Color, Warm/Dry Progress/Results/Core Measures Results/Orders Lab Results Laboratory Tests Test 10/26/20 15:35 10/26/20 15:38 Range/Units White Blood Count 5.3 4.3-11.0 10^3/uL Red Blood Count 4.40 3.80-5.11 10^6/uL Hemoglobin 13.0 11.5-16.0 g/dL Hematocrit 38 35-52 % Mean Corpuscular Volume 87 80-99 fL Mean Corpuscular Hemoglobin 30 25-34 pg Mean Corpuscular Hemoglobin Concent 34 32-36 g/dL Red Cell Distribution Width 12.8 10.0-14.5 % Platelet Count 235 130-400 10^3/uL Mean Platelet Volume 10.2 9.0-12.2 fL Immature Granulocyte % (Auto) 0 % Neutrophils (%) (Auto) 46 42-75 % Lymphocytes (%) (Auto) 43 12-44 % Monocytes (%) (Auto) 8 0-12 % Eosinophils (%) (Auto) 3 0-10 % Basophils (%) (Auto) 1 0-10 % Neutrophils # (Auto) 2.5 1.8-7.8 10^3/uL Lymphocytes # (Auto) 2.3 1.0-4.0 10^3/uL Monocytes # (Auto) 0.4 0.0-1.0 10^3/uL Eosinophils # (Auto) 0.1 0.0-0.3 10^3/uL Basophils # (Auto) 0.0 0.0-0.1 10^3/uL Immature Granulocyte # (Auto) 0.0 0.0-0.1 10^3/uL Sodium Level 141 135-145 MMOL/L Potassium Level 3.5 L 3.6-5.0 MMOL/L Chloride Level 104 98-107 MMOL/L Carbon Dioxide Level 24 21-32 MMOL/L Anion Gap 13 5-14 MMOL/L Blood Urea Nitrogen 10 7-18 MG/DL Creatinine 0.77 0.60-1.30 MG/DL Estimat Glomerular Filtration Rate > 60 BUN/Creatinine Ratio 13 Glucose Level 89 70-105 MG/DL Calcium Level 9.1 8.5-10.1 MG/DL Urine Color YELLOW Urine Clarity CLEAR Urine pH 6.0 5-9 Urine Specific [place] <=1.005 1.016-1.022 Urine Protein NEGATIVE NEGATIVE Urine Glucose (UA) NEGATIVE NEGATIVE Urine Ketones NEGATIVE NEGATIVE Urine Nitrite NEGATIVE NEGATIVE Urine Bilirubin NEGATIVE NEGATIVE Urine Urobilinogen 0.2 < = 1.0 MG/DL Urine Leukocyte Esterase TRACE H NEGATIVE Urine RBC (Auto) 1+ H NEGATIVE Urine RBC NONE /HPF Urine WBC 2-5 /HPF Urine Squamous Epithelial Cells 0-2 /HPF Urine Crystals NONE /LPF Urine Bacteria NEGATIVE /HPF Urine Casts NONE /LPF Urine Mucus NEGATIVE /LPF Urine Culture Indicated NO Urine Opiates Screen POSITIVE H NEGATIVE Urine Oxycodone Screen NEGATIVE NEGATIVE Urine Methadone Screen NEGATIVE NEGATIVE Urine Propoxyphene Screen NEGATIVE NEGATIVE Urine Barbiturates Screen NEGATIVE NEGATIVE Ur Tricyclic Antidepressants Screen NEGATIVE NEGATIVE Urine Phencyclidine Screen NEGATIVE NEGATIVE Urine Amphetamines Screen NEGATIVE NEGATIVE Urine Methamphetamines Screen NEGATIVE NEGATIVE Urine Benzodiazepines Screen POSITIVE H NEGATIVE Urine Cocaine Screen NEGATIVE NEGATIVE Urine Cannabinoids Screen NEGATIVE NEGATIVE My Orders Orders - PIERRE JOSEPH [employer] Ua Culture If Indicated (10/26/20 15:25) Drug Screen Stat (Urine) (10/26/20 15:25) Cbc With Automated Diff (10/26/20 15:25) Basic Metabolic Panel (10/26/20 15:25) Ct Abd/Pelvis Wo(Kidney Stone) (10/26/20 15:25) Vital Signs/I&O 10/26/20 15:09 Temp 36.7 Pulse 74 Resp 16 B/P (MAP) 166/94 (118) Pulse Ox 97 O2 Delivery Room Air Departure Impression Primary Impression: Acute low back pain Disposition: HOME, SELF-CARE Condition: Stable Departure-Patient Inst. Decision time for Depature: 16:07 Referrals: JIMY BENNETT MD (PCP/Family) Primary Care Physician Patient Instructions: Low Back Pain ED Add. Discharge Instructions: 1. Follow-up with your regular doctor next week. Return to ER for any concerns. All discharge instructions reviewed with patient and/or family. Voiced understanding. Scripts Prednisone (Prednisone) 20 Mg Tab 40 MG PO DAILY, #6 TAB 0 Refills Prov: PIERRE JOSEPH APRN 10/26/20 Methocarbamol (Robaxin-750) 750 Mg Tablet 1500 MG PO Q4H PRN for PAIN-MODERATE (5-7), #20 TAB Prov: PIERRE JOSEPH APRN 10/26/20 PIERRE JOSEPH APRN Oct 26, 2020 15:29
[2020-10-26 15:43] LABS: BASOPHILS % (AUTO) 1 % (0-10); EOSINOPHILS # (AUTO) 0.1 10^3/uL (0.0-0.3); EOSINOPHILS % (AUTO) 3 % (0-10); HEMATOCRIT 38 % (35-52); LYMPHOCYTES # (AUTO) 2.3 10^3/uL (1.0-4.0); LYMPHOCYTES % (AUTO) 43 % (12-44); MEAN CORPUSCULAR HEMOGLOBIN 30 pg (25-34); MEAN CORPUSCULAR HGB CONC 34 g/dL (32-36); MEAN CORPUSCULAR VOLUME 87 fL (80-99); MEAN PLATELET VOLUME 10.2 fL (9.0-12.2); MONOCYTES # (AUTO) 0.4 10^3/uL (0.0-1.0); MONOCYTES % (AUTO) 8 % (0-12); NEUTROPHILS # (AUTO) 2.5 10^3/uL (1.8-7.8); NEUTROPHILS % (AUTO) 46 % (42-75); PLATELET COUNT 235 10^3/uL (130-400); WHITE BLOOD COUNT 5.3 10^3/uL (4.3-11.0)
[2020-10-26 15:45] LABS: BILIRUBIN,URINE NEGATIVE (NEGATIVE); CLARITY,URINE CLEAR; COLOR,URINE YELLOW; GLUCOSE, URINE (UA) NEGATIVE (NEGATIVE); KETONES,URINE NEGATIVE (NEGATIVE); LEUKOCYTE ESTERASE ,URINE TRACE (NEGATIVE); NITRITE,URINE NEGATIVE (NEGATIVE); PROTEIN,URINE NEGATIVE (NEGATIVE)
[2020-10-26 15:56] LABS: BACTERIA,URINE NEGATIVE /HPF; SQUAMOUS EPITHELIAL CELL,UR 0-2 /HPF
[2020-10-26 15:58] LABS: CHLORIDE 104 MMOL/L (98-107); POTASSIUM 3.5 MMOL/L (3.6-5.0); SODIUM 141 MMOL/L (135-145)
[2020-10-26 15:59] LABS: CALCIUM 9.1 MG/DL (8.5-10.1)
[2020-10-26 16:00] LABS: GLUCOSE 89 MG/DL (70-105)
[2020-10-26 16:01] LABS: CARBON DIOXIDE 24 MMOL/L (21-32)
[2020-10-26 16:04] LABS: AMPHETAMINE SCREEN, URINE NEGATIVE (NEGATIVE); BENZODIAZEPINES SCREEN URINE POSITIVE (NEGATIVE); CANNABINOID SCREEN, URINE NEGATIVE (NEGATIVE); COCAINE SCREEN URINE NEGATIVE (NEGATIVE); METHAMPHETAMINE SCREEN URINE S NEGATIVE (NEGATIVE)
[2020-10-26 16:04] LABS: CREATININE SERUM 0.77 MG/DL (0.60-1.30); GFR ESTIMATED > 60
[2020-10-26 16:05] LABS: BUN/CREATININE RATIO 13
[2020-10-26 16:05] LABS: BARBITURATE SCREEN URINE NEGATIVE (NEGATIVE); METHADONE STAT NEGATIVE (NEGATIVE); OPIATE SCREEN URINE POSITIVE (NEGATIVE); OXYCODONE STAT NEGATIVE (NEGATIVE); PROPOXYPHENE STAT NEGATIVE (NEGATIVE); TRICYCLIC ANTIDEPRESSANTS SCRE NEGATIVE (NEGATIVE)
[2020-10-26] MEDS ORDERED: METH-313 PO (16:09)
[2020-10-26] MEDS ORDERED: PRD20T PO (16:09)
--- NOTE | 2020-10-26 16:42 | Diagnostic Imaging Report ---
PROCEDURE: CT urinary tract, rule out kidney stone. TECHNIQUE: Multiple contiguous axial images were obtained through the abdomen and pelvis without the use of intravenous contrast. Auto Exposure Controls were utilized during the CT exam to meet ALARA standards for radiation dose reduction. INDICATION: Lower back and flank pain x3 days. History of kidney stones. History of abdominal hernia. COMPARISON: CT abdomen and pelvis 09/28/2020. FINDINGS: Cardiomegaly. Partially visualized cardiac pacer. Mild atelectasis in the lung bases. The liver, pancreas, spleen, adrenals, left kidney, collecting systems, ureters and bladder are negative on this noncontrast exam. Punctate nonobstructing calyceal tip renal stone in the lower pole of the right kidney. Hysterectomy. Appendectomy. No free intraperitoneal air or fluid. No lymphadenopathy. No evidence of bowel obstruction. Small esophageal hiatal hernia. No abdominal wall hernias are evident on CT. Osseous structures are intact. IMPRESSION: No acute CT findings in the abdomen or pelvis on this noncontrast exam. Chronic and incidental findings as above. Dictated by: Dictated on workstation # [id number]
[2020-10-26 16:50] VITALS: BP 153/89
== END 2020-10-26 16:50 | disposition home or self-care (01) ==
LOC: EDUNIT# 15:00 → ER 15:01
DX: M54.5 Low back pain (principal); I48.91 Unspecified atrial fibrillation; E03.9 Hypothyroidism, unspecified; G89.29 Other chronic pain; M54.9 Dorsalgia, unspecified; Z79.890 Hormone replacement therapy; Z91.040 Latex allergy status; Z85.038 Personal history of other malignant neoplasm of large intestine; Z95.0 Presence of cardiac pacemaker; Z80.0 Family history of malignant neoplasm of digestive organs; Z79.01 Long term (current) use of anticoagulants; Z79.891 Long term (current) use of opiate analgesic
CPT/HCPCS: 36415; 74176; 80048; 80306; 81000; 85025

== ENCOUNTER 2020-12-03 16:35 | Inpatient (IN) | payer BC ==
[~2020-12-03] VITALS: Ht 162.5 cm; Wt 86.0 kg
[~2020-12-03 16:35] MED LIST changes: +METH-313 PO; +PRD20T PO
[2020-12-03] MEDS ORDERED: ADENOSINE 6 MG/2 ML (ADENOCARD) VIAL IV ONE (17:03)
[2020-12-03] MEDS ORDERED: NS IV 1000 ML 1,000 ML ONE (17:07)
[2020-12-03] MEDS ORDERED: diphenhydrAMINE 50 MG/ML INJ (BENADRYL) ONE (17:18)
[2020-12-03 17:44] LABS: BASOPHILS % (AUTO) 0 % (0-10); EOSINOPHILS # (AUTO) 0.1 10^3/uL (0.0-0.3); EOSINOPHILS % (AUTO) 1 % (0-10); HEMATOCRIT 31 % (35-52); HEMOGLOBIN 10.4 g/dL (11.5-16.0); LYMPHOCYTES # (AUTO) 2.2 10^3/uL (1.0-4.0); LYMPHOCYTES % (AUTO) 18 % (12-44); MEAN CORPUSCULAR HEMOGLOBIN 30 pg (25-34); MEAN CORPUSCULAR HGB CONC 33 g/dL (32-36); MEAN CORPUSCULAR VOLUME 89 fL (80-99); MEAN PLATELET VOLUME 11.1 fL (9.0-12.2); MONOCYTES % (AUTO) 8 % (0-12); NEUTROPHILS % (AUTO) 73 % (42-75); PLATELET COUNT 353 10^3/uL (130-400); WHITE BLOOD COUNT 12.4 10^3/uL (4.3-11.0)
--- NOTE | 2020-12-03 17:56 | ED General ---
General Chief Complaint: Respiratory Problems Stated Complaint: POST HIATAL HERNIA OP/FATIGUE/SOB Source of Information: Patient Exam Limitations: No Limitations (ANDREE BUTT MD) History of Present Illness Date Seen by Provider: December 03, 2020 Time Seen by Provider: 17:05 Initial Comments Patient is a 55-year-old female who presents to the emergency department with a chief complaint of generalized weakness and not feeling well, heart palpitations and low oxygen saturations. Patient states that she had a hiatal hernia surgery done 5 days ago at . She states that she was feeling pretty poorly on discharge from the hospital. She states she is continued to feel bad and checked her oxygen saturations this morning and noted that they were down in the "70s and 80s". Patient states at that time she noticed her heart rate was increasing. She did have an episode of diarrhea this morning. She has felt weak and without any energy since her discharge. She denies fevers or chills or productive cough. She is on Lovenox injections twice daily for DVT prophylaxis. She does have a history of atrial fibrillation. She used to see Dr. Josue Steel at [facility] but has not seen them in a while. She did have a cardiac clearance with a stress test and echocardiogram before her hiatal hernia surgery. On presentation to the ER the patient is noted to be in SVT with heart rates at 200 to 220 bpm. She is pale and diaphoretic. All other review of systems reviewed and negative except as stated above. Timing/Duration: 4-6 Hours Severity: Severe Associated Systoms: Diaphoresis, Malaise, Nausea/Vomiting (Nausea without vomiting), Shortness of Air, Weakness (ANDREE BUTT MD) Allergies and Home Medications Allergies Coded Allergies: Latex, Natural Rubber (Unverified Allergy, Intermediate, Shortness of Breath, 09/27/20) Home Medications Apixaban 5 Mg Tablet, 5 MG PO DAILY, (Reported) Diazepam 5 Mg Tablet, 5 MG PO PRN, (Reported) Furosemide 40 Mg Tablet, 40 MG PO DAILY, (Reported) Hydrocodone/Acetaminophen 1 Each Tablet, 1 TAB PO Q4H PRN for PAIN-MODERATE (5- 7) Prescribed by: HUBERT GENTILE on 09/28/20 0858 Hydrocodone/Acetaminophen 1 Each Tablet, 1 EACH PO Q6H PRN for PAIN-BREAKTHROUGH Prescribed by: HUBERT GENTILE on 10/10/20 1225 Levothyroxine Sodium 125 Mcg Capsule, 125 MCG PO DAILY, (Reported) Methocarbamol 750 Mg Tablet, 1,500 MG PO Q4H PRN for PAIN-MODERATE (5-7) Prescribed by: PIERRE JOSEPH on 10/26/20 1609 Ondansetron 4 Mg Tab.rapdis, 4 MG PO Q6H PRN for NAUSEA/VOMITING Prescribed by: HUBERT GENTILE on 09/28/20 0857 Ondansetron 4 Mg Tab.rapdis, 4 MG PO Q6H PRN for NAUSEA/VOMITING Prescribed by: HUBERT GENTILE on 10/10/20 1224 Pantoprazole Sodium 40 Mg Tablet.dr, 40 MG PO DAILY Prescribed by: MARIYA HERNANDEZ on 10/03/20 0948 Pantoprazole Sodium 40 Mg Tablet.dr, 40 MG PO BID Prescribed by: HUBERT GENTILE on 10/10/20 1224 Prednisone 20 Mg Tab, 40 MG PO DAILY Prescribed by: PIERRE JOSEPH on 10/26/20 1609 Sucralfate 1 Gm Tablet, 1 GM PO QIDACHS Prescribed by: HUBERT GENTILE on 09/28/20 0857 Sucralfate 1 Gm Tablet, 1 GM PO QIDACHS Prescribed by: HUBERT GENTILE on 10/10/20 1224 Patient Home Medication List Home Medication List Reviewed: Yes (ANDREE BUTT MD) Review of Systems Review of Systems Constitutional: see HPI EENTM: no symptoms reported Respiratory: short of breath Cardiovascular: palpitations Gastrointestinal: abdominal pain, nausea Genitourinary: no symptoms reported Musculoskeletal: no symptoms reported Skin: no symptoms reported (ANDREE BUTT MD) All Other Systems Reviewed Negative Unless Noted: Yes (ANDREE BUTT MD) Past Eaqbaet-Ujjhnt-Jhhknv Hx Patient Social History Alcohol Beverage of Choice: Whiskey 2nd Hand Smoke Exposure: No Recent Hopitalizations: No (ANDREE BUTT MD) Immunizations Up To Date Tetanus Booster (TDap): Less than 5yrs PED Vaccines UTD: Yes (ANDREE BUTT MD) Seasonal Allergies Seasonal Allergies: Yes (ANDREE BUTT MD) Past Medical History Surgeries: Yes (DNC'S, LAPAROSCOPY, UVULA REMOVED) Appendectomy, Bladder Surgery, Gallbladder, Hysterectomy, Pacemaker, Tonsillectomy Cardiac: Yes (ABLATION, CHF) Atrial Fibrillation, Valvular Heart Disease Neurological: Yes Headaches /Migraines 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, 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, Menopausal Genitourinary: No (BLADDER SLING) Gastrointestinal: Yes Reina's Esophagus Musculoskeletal: Yes Chronic Back Pain Hypothyroidsim HEENT: No Cancer: Yes (PRE CANCER POLYPS) Colon Psychosocial: Yes Depression Integumentary: Yes Eczema, Psoriasis Blood Disorders: No (ANDREE BUTT MD) Family Medical History Colon cancer Physical Exam Vital Signs Vital Signs - First Documented 12/03/20 12/03/20 16:45 17:45 Temp 36.8 Pulse 210 Resp 26 B/P (MAP) 107/77 (87) Pulse Ox 92 O2 Delivery Room Air O2 Flow Rate 1.00 (HUBERT GENTILE) Vital Signs Capillary Refill : (ANDREE BUTT MD) Height, Weight, BMI Height: '" Weight: lbs. oz. kg; 34.00 BMI Method: General Appearance: WD/WN, Moderate Distress Eyes: Bilateral Eye Normal Inspection, Bilateral Eye PERRL, Bilateral Eye EOMI Neck: Normal Inspection Respiratory: Lungs Clear, Normal Breath Sounds, No Accessory Muscle Use, No Respiratory Distress Cardiovascular: Tachycardia Gastrointestinal: Soft, Tenderness Extremity: Normal Capillary Refill, Normal Inspection, Normal Range of Motion Neurologic/Psychiatric: Alert, Oriented x3, No Motor/Sensory Deficits, Normal Mood/Affect (ANDREE BUTT MD) Progress/Results/Core Measures Suspected Sepsis SIRS Temperature: Pulse: Respiratory Rate: Laboratory Tests 12/03/20 17:10: White Blood Count 12.4H Blood Pressure / Mean: Laboratory Tests 12/03/20 17:10: Platelet Count 353 (ANDREE BUTT MD) Results/Orders Lab Results Laboratory Tests Test 12/03/20 17:10 Range/Units White Blood Count 12.4 H 4.3-11.0 10^3/uL Red Blood Count 3.51 L 3.80-5.11 10^6/uL Hemoglobin 10.4 L 11.5-16.0 g/dL Hematocrit 31 L 35-52 % Mean Corpuscular Volume 89 80-99 fL Mean Corpuscular Hemoglobin 30 25-34 pg Mean Corpuscular Hemoglobin Concent 33 32-36 g/dL Red Cell Distribution Width 13.5 10.0-14.5 % Platelet Count 353 130-400 10^3/uL Mean Platelet Volume 11.1 9.0-12.2 fL Immature Granulocyte % (Auto) 1 % Neutrophils (%) (Auto) 73 42-75 % Lymphocytes (%) (Auto) 18 12-44 % Monocytes (%) (Auto) 8 0-12 % Eosinophils (%) (Auto) 1 0-10 % Basophils (%) (Auto) 0 0-10 % Neutrophils # (Auto) 9.0 H 1.8-7.8 10^3/uL Lymphocytes # (Auto) 2.2 1.0-4.0 10^3/uL Monocytes # (Auto) 1.0 0.0-1.0 10^3/uL Eosinophils # (Auto) 0.1 0.0-0.3 10^3/uL Basophils # (Auto) 0.0 0.0-0.1 10^3/uL Immature Granulocyte # (Auto) 0.1 0.0-0.1 10^3/uL Prothrombin Time 13.9 12.2-14.7 SEC INR Comment 1.0 0.8-1.4 Activated Partial Thromboplast Time 24 24-35 SEC Sodium Level 139 135-145 MMOL/L Potassium Level 3.5 L 3.6-5.0 MMOL/L Chloride Level 104 98-107 MMOL/L Carbon Dioxide Level 24 21-32 MMOL/L Anion Gap 11 5-14 MMOL/L Blood Urea Nitrogen 7 7-18 MG/DL Creatinine 0.82 0.60-1.30 MG/DL Estimat Glomerular Filtration Rate > 60 BUN/Creatinine Ratio 9 Glucose Level 155 H 70-105 MG/DL Calcium Level 9.3 8.5-10.1 MG/DL Corrected Calcium 9.1 8.5-10.1 MG/DL Magnesium Level 2.1 1.6-2.4 MG/DL Total Bilirubin 2.6 H 0.1-1.0 MG/DL Aspartate Amino Transf (AST/SGOT) 80 H 5-34 U/L Alanine Aminotransferase (ALT/SGPT) 43 0-55 U/L Alkaline Phosphatase 77 40-136 U/L Myoglobin 48.1 10.0-92.0 NG/ML Troponin I 4.538 *H <0.028 NG/ML B-Type Natriuretic Peptide 325.5 H <100.0 PG/ML Total Protein 7.8 6.4-8.2 GM/DL Albumin 4.2 3.2-4.5 GM/DL (HUBERT GENTILE) My Orders Orders - HUBERT GENTILE Ct Angio Chest W (12/03/20 18:12) Aspirin Chewable Tablet (Baby Aspirin Ch (12/03/20 18:30) Enoxaparin Injection (Lovenox Injection) (12/03/20 18:45) Iohexol Injection (Omnipaque 350 Mg/Ml 1 (12/03/20 18:45) Received Contrast (Hold Metformin- Contr (12/03/20 18:45) Sodium Chloride Flush (Catheter Flush Sy (12/03/20 18:45) Ns (Ivpb) (Sodium Chloride 0.9% Ivpb Bag (12/03/20 18:45) (HUBERT GENTILE) Medications Given in ED Current Medications Medications Dose Ordered Sig/Giselle Route Start Time Stop Time Status Last Admin Dose Admin Adenosine 6 mg STK-MED ONCE IV 12/03/20 17:03 12/03/20 17:13 DC 12/03/20 17:20 6 MG Aspirin 324 mg ONCE ONCE PO 12/03/20 18:30 12/03/20 18:31 DC 12/03/20 18:31 324 MG Diltiazem HCl 25 mg STK-MED ONCE .ROUTE 12/03/20 17:12 12/03/20 17:22 DC 12/03/20 17:35 25 MG Diphenhydramine HCl 50 mg STK-MED ONCE .ROUTE 12/03/20 17:18 12/03/20 17:27 DC 12/03/20 17:40 50 MG Enoxaparin Sodium 90 mg ONCE ONCE SC 12/03/20 18:45 12/03/20 18:46 DC 12/03/20 19:18 90 MG Iohexol 100 ml ONCE ONCE IV 12/03/20 18:45 12/03/20 18:46 DC 12/03/20 19:11 88 ML Sodium Chloride 10 ml NEEDED PRN IV 12/03/20 18:45 12/03/20 19:11 10 ML Sodium Chloride 100 ml ONCE ONCE IV 12/03/20 18:45 12/03/20 18:46 DC 12/03/20 19:11 80 ML (HUBERT GENTILE) Vital Signs/I&O 12/03/20 12/03/20 16:45 17:45 Temp 36.8 Pulse 210 Resp 26 B/P (MAP) 107/77 (87) Pulse Ox 92 91 O2 Delivery Room Air Nasal Cannula O2 Flow Rate 1.00 (HUBERT GENTILE) Vital Signs/I&O Capillary Refill : (ANDREE BUTT MD) Progress Note : Time: 18:10 Progress Note I agree with the above documented HPI and PE. Plan to obtain CTA since she was in AFIB c RVR and SOA with low O2 sats. Still working on a liter of fluids. Pt has known Afib with last dose of lovenox 24 hours ago. Hx Heart failure and pacemaker from [place]. Her last Echo was in Aug 2020 at [facility] and a [facility] reviewed and gave her surgical clearance. She has an appt to [facility] at a local [employer] [facility] in [place]. (HUBERT GENTILE) ECG Initial ECG Impression Date: December 03, 2020 Initial ECG Impression Time: 17:08 Initial ECG Rate: 221 Initial ECG Rhythm: SVT EKG : EKG Time: 17:13 Rate: 168 Rhythm: A Fib/Flutter ECG Comparisson: Changed ECG Impression: Atrial Fibrillation (ANDREE BUTT MD) EKG : EKG Time: 17:23 Rate: 116 Rhythm: S.Tach Intervals: Normal ECG Comparisson: Changed ECG Impression: Normal Comment NSR c Tachycardia and no ST Elevation or depression. (HUBERT GENTILE) Diagnostic Imaging Diagonstic Imaging: Xray Plain Films/CT/US/NM/MRI: chest Comments [facility], [place] NAME: OLESYA NEVES [facility] REC#: [id number] PT STATUS: REG ER : 1965 PHYSICIAN: PIERRE JOSEPH APRN ADMIT DATE: 12/03/20/ER Signed Date of Exam:12/03/20 CHEST 1 VIEW, AP/PA ONLY EXAMINATION: Chest 1 view. HISTORY: Chest pain. COMPARISON: 09/28/2020. FINDINGS: The lung volumes are normal. No focal consolidation is seen. No large pleural effusion or pneumothorax is seen. The cardiomediastinal silhouette is prominent with stable left pectoral pacemaker. No acute osseous abnormality is seen. IMPRESSION: 1. Cardiomegaly. No overt pulmonary edema. Dictated by: Dictated on workstation # [id number] Dict: 12/03/201754 Trans: 12/03/201801 [facility] [id number] Interpreted by: SHERRY NOEL DO Electronically signed by: SHERRY NOEL DO 12/03/201801 Reviewed: Reviewed by Mi Diagonstic Imaging: CT Plain Films/CT/US/NM/MRI: chest Comments NAME: OLESYA NEVES [facility] REC#: [id number] PT STATUS: REG ER : 1965 PHYSICIAN: HUBERT GENTILE MD ADMIT DATE: 12/03/20/ER Draft Date of Exam:12/03/20 CT ANGIO CHEST W PROCEDURE: CT angiography of the chest with contrast. TECHNIQUE: Multiple contiguous axial images were obtained through the chest after uneventful bolus administration of intravenous contrast. 3D reconstructed CTA MIP acquisitions were also performed. Auto Exposure Controls were utilized during the CT exam to meet ALARA standards for radiation dose reduction. INDICATION: Shortness of breath. Chest pain. COMPARISON: 08/15/2020. FINDINGS: This helical CT pulmonary angiogram is diagnostic to the subsegmental level branches of the pulmonary artery and demonstrates no pulmonary emboli. The heart and great vessels are unremarkable. There is trace pericardial effusion. There is no axillary, mediastinal, or hilar adenopathy. Small bilateral pleural effusions are visualized with bibasilar opacities. No evidence of pulmonary mass or suspicious pulmonary nodule. No central endobronchial obstructing lesions. No pneumothorax. Osseous structures appear normal. Limited views of the upper abdomen are unremarkable. IMPRESSION: 1. No acute pulmonary embolus. 2. Bilateral small pleural effusions with bibasilar atelectasis. 3. Trace pericardial effusion. Dictated on workstation # [id number] Dict: 12/03/201913 Trans: 12/03/201918 [facility] [id number] Interpreted by: SHERRY NOEL DO Electronically signed by: Reviewed: Reviewed by Me (HUBERT GENTILE) Departure Communication (Admissions) Time/Spoke to Admitting Phy: 18:54 Dr Orlando: Accepts with Cardiac Consult. Time/Spoke to Consulting Phy: 18:30 Dr Ruvalcaba: ASA and Lovenox and admit to Medicine. (HUBERT GENTILE) Impression Primary Impression: NSTEMI (non-ST elevated myocardial infarction) Additional Impression: Atrial fibrillation with RVR Disposition: ADMITTED INPATIENT Condition: Stable Admissions Decision to Admit Reason: Admit from ER (General) Decision to Admit/Date: December 03, 2020 Time/Decision to Admit Time: 18:00 (HUBERT GENTILE) Departure-Patient Inst. Referrals: JIMY BENNETT MD (PCP/Family) Primary Care Physician ANDREE BUTT MD December 03, 2020 17:56 HUBERT GENTILE December 03, 2020 18:12
[2020-12-03 17:58] LABS: ALBUMIN 4.2 GM/DL (3.2-4.5)
[2020-12-03 17:59] LABS: CHLORIDE 104 MMOL/L (98-107); POTASSIUM 3.5 MMOL/L (3.6-5.0); SODIUM 139 MMOL/L (135-145)
--- NOTE | 2020-12-03 17:59 | Diagnostic Imaging Report ---
EXAMINATION: Chest 1 view. HISTORY: Chest pain. COMPARISON: 09/28/2020. FINDINGS: The lung volumes are normal. No focal consolidation is seen. No large pleural effusion or pneumothorax is seen. The cardiomediastinal silhouette is prominent with stable left pectoral pacemaker. No acute osseous abnormality is seen. IMPRESSION: 1. Cardiomegaly. No overt pulmonary edema. Dictated by: Dictated on workstation # [id number]
[2020-12-03 18:00] LABS: CALCIUM 9.3 MG/DL (8.5-10.1)
[2020-12-03 18:01] LABS: GLUCOSE 155 MG/DL (70-105); TOTAL PROTEIN 7.8 GM/DL (6.4-8.2)
[2020-12-03 18:02] LABS: CARBON DIOXIDE 24 MMOL/L (21-32)
[2020-12-03 18:03] LABS: BILIRUBIN,TOTAL 2.6 MG/DL (0.1-1.0)
[2020-12-03 18:04] LABS: ALKALINE PHOSPHATASE 77 U/L (40-136); PROTHROMBIN TIME PATIENT 13.9 SEC (12.2-14.7)
[2020-12-03 18:05] LABS: CREATININE SERUM 0.82 MG/DL (0.60-1.30); GFR ESTIMATED > 60
[2020-12-03 18:06] LABS: BUN/CREATININE RATIO 9
[2020-12-03 18:08] LABS: ALANINE AMINOTRANSFERASE 43 U/L (0-55); MAGNESIUM 2.1 MG/DL (1.6-2.4)
[2020-12-03] MEDS ORDERED: NS IV 1000 ML 1,000 ML IV SCH (18:30)
[2020-12-03] MEDS ORDERED: ASPIRIN 81 MG CHEW (CHILDREN'S ASA) PO ONE (18:30)
[2020-12-03] MEDS ORDERED: ENOXAPARIN 100 MG/1 ML (LOVENOX) SYR SC ONE (18:45)
[2020-12-03] MEDS ORDERED: CATHETER FLUSH 10 ML SYR IV PRN ×2 (18:45→20:30)
[2020-12-03] MEDS ORDERED: NS 100 ML (IVPB) BAG IV ONE (18:45)
[2020-12-03] MEDS ORDERED: HOLD METFORMIN - RECEIVED CONTRAST 20 ML VIAL IV SCH (18:45)
[2020-12-03] MEDS ORDERED: IOHEXOL 350 MG/ML 100 ML (OMNIPAQUE 350) VIAL IV ONE (18:45)
--- NOTE | 2020-12-03 19:19 | Diagnostic Imaging Report ---
PROCEDURE: CT angiography of the chest with contrast. TECHNIQUE: Multiple contiguous axial images were obtained through the chest after uneventful bolus administration of intravenous contrast. 3D reconstructed CTA MIP acquisitions were also performed. Auto Exposure Controls were utilized during the CT exam to meet ALARA standards for radiation dose reduction. INDICATION: Shortness of breath. Chest pain. COMPARISON: 08/15/2020. FINDINGS: This helical CT pulmonary angiogram is diagnostic to the subsegmental level branches of the pulmonary artery and demonstrates no pulmonary emboli. The heart and great vessels are unremarkable. There is trace pericardial effusion. There is no axillary, mediastinal, or hilar adenopathy. Small bilateral pleural effusions are visualized with bibasilar opacities. No evidence of pulmonary mass or suspicious pulmonary nodule. No central endobronchial obstructing lesions. No pneumothorax. Osseous structures appear normal. Limited views of the upper abdomen are unremarkable. IMPRESSION: 1. No acute pulmonary embolus. 2. Bilateral small pleural effusions with bibasilar atelectasis. 3. Trace pericardial effusion. Dictated by: Dictated on workstation # [id number]
[2020-12-03 19:42] VITALS: BP 119/80
[2020-12-03] MEDS ORDERED: ACETAMINOPHEN 500 MG TAB (TYLENOL) ONE (20:15)
[2020-12-03] MEDS ORDERED: NITROGLYCERIN 0.4 MG SL TABS BTL 25'S SL PRN (20:30)
[2020-12-03] MEDS ORDERED: ONDANSETRON 4 MG/2 ML (SDV) Z0FRAN IVP PRN (20:30)
[2020-12-03] MEDS: ACETAMINOPHEN 500 MG TAB (TYLENOL) PO PRN (20:39)
[2020-12-03] MEDS: LACTATED RINGERS 1,000 ML IV SCH (20:49)
[2020-12-03] MEDS: dilTIAZem DRIP PRE-MIX 125 ML IV SCH (20:49)
[2020-12-03] MEDS: morphine INJ 4 MG/ML 1 ML (VIAL/SYRINGE) IV PRN (21:39)
[2020-12-04] MEDS: morphine INJ 4 MG/ML 1 ML (VIAL/SYRINGE) IV PRN ×4 (01:48→20:17)
[2020-12-04 04:46] LABS: CHLORIDE 106 MMOL/L (98-107); POTASSIUM 3.3 MMOL/L (3.6-5.0); SODIUM 139 MMOL/L (135-145)
[2020-12-04 04:47] LABS: CALCIUM 8.7 MG/DL (8.5-10.1)
[2020-12-04 04:48] LABS: GLUCOSE 96 MG/DL (70-105); TRIGLYCERIDES 95 MG/DL (<150); VLDL CHOLESTEROL 19 MG/DL (5-40)
[2020-12-04 04:50] LABS: CARBON DIOXIDE 24 MMOL/L (21-32)
[2020-12-04 04:52] LABS: CREATININE SERUM 0.63 MG/DL (0.60-1.30); GFR ESTIMATED > 60; PHOSPHORUS 2.2 MG/DL (2.3-4.7)
[2020-12-04 04:53] LABS: BUN/CREATININE RATIO 13; CHOLESTEROL 111 MG/DL (< 200)
[2020-12-04 04:54] LABS: HDL CHOLESTEROL 29 MG/DL (40-60)
[2020-12-04 04:55] LABS: MAGNESIUM 1.9 MG/DL (1.6-2.4)
--- NOTE | 2020-12-04 05:25 | Pulmonary Consultation ---
History of Present Illness History of Present Illness Date Seen by Provider: December 04, 2020 Time Seen by Provider: 05:20 Date of Admission Allergies and Home Medications Allergies Coded Allergies: Latex, Natural Rubber (Unverified Allergy, Intermediate, Shortness of Breath, 09/27/20) Home Medications Apixaban 5 Mg Tablet, 5 MG PO DAILY, (Reported) Diazepam 5 Mg Tablet, 5 MG PO PRN, (Reported) Furosemide 40 Mg Tablet, 40 MG PO DAILY, (Reported) Hydrocodone/Acetaminophen 1 Each Tablet, 1 TAB PO Q4H PRN for PAIN-MODERATE (5- 7) Prescribed by: HUBERT GENTILE on 09/28/20 0858 Hydrocodone/Acetaminophen 1 Each Tablet, 1 EACH PO Q6H PRN for PAIN-BREAKTHROUGH Prescribed by: HUBERT GENTILE on 10/10/20 1225 Levothyroxine Sodium 125 Mcg Capsule, 125 MCG PO DAILY, (Reported) Methocarbamol 750 Mg Tablet, 1,500 MG PO Q4H PRN for PAIN-MODERATE (5-7) Prescribed by: PIERRE JOSEPH on 10/26/20 1609 Ondansetron 4 Mg Tab.rapdis, 4 MG PO Q6H PRN for NAUSEA/VOMITING Prescribed by: HUBERT GENTILE on 09/28/20 0857 Pantoprazole Sodium 40 Mg Tablet.dr, 40 MG PO DAILY Prescribed by: MARIYA HERNANDEZ on 10/03/20 0948 Pantoprazole Sodium 40 Mg Tablet.dr, 40 MG PO BID Prescribed by: HUBERT GENTILE on 10/10/20 1224 Past Bwqfdpv-Birypa-Vxnffu Hx Patient Social History Alcohol Use: Denies Use Number of Drinks Today: GG Alcohol Beverage of Choice: Whiskey Smoking Status: Never a Smoker 2nd Hand Smoke Exposure: No Recent Infectious Disease Expo: No Recent Hopitalizations: No Have you traveled recently?: No Alcohol Use?: No Immunizations Up To Date Tetanus Booster (TDap): Less than 5yrs PED Vaccines UTD: Yes Date of Influenza Vaccine: May 04, 2020 Seasonal Allergies Seasonal Allergies: Yes Past Medical History Surgeries: Yes (DNC'S, LAPAROSCOPY, UVULA REMOVED, hernia repair) Appendectomy, Bladder Surgery, Gallbladder, Hysterectomy, Pacemaker, Tonsillectomy Cardiac: Yes (ABLATION, CHF) Atrial Fibrillation, Valvular Heart Disease Neurological: Yes Headaches /Migraines 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 oz. kg; 33.85 BMI Method: Exam Exam Vital Signs Date Time Temp Pulse Resp B/P (MAP) Pulse Ox O2 Delivery O2 Flow Rate FiO2 12/04/20 04:00 36.7 Nasal Cannula 2.00 12/04/20 03:35 95 Nasal Cannula 2.00 12/04/20 03:14 2.00 12/04/20 01:00 120 12/04/20 00:00 120 12 118/84 (95) 97 Nasal Cannula 2.00 12/03/20 23:00 121 13 123/88 (100) 96 Nasal Cannula 2.00 12/03/20 23:00 94 Nasal Cannula 2.00 12/03/20 22:55 36.0 Nasal Cannula 2.00 12/03/20 22:00 121 24 107/80 (89) 95 Nasal Cannula 2.00 12/03/20 21:38 Nasal Cannula 2.00 12/03/20 20:12 36.6 121 24 132/87 (102) 95 Room Air 12/03/20 20:12 94 Room Air 12/03/20 19:42 122 24 119/80 94 Room Air 12/03/20 17:45 91 Nasal Cannula 1.00 12/03/20 16:45 36.8 210 26 107/77 (87) 92 Room Air I & O 12/04/20 06:59 Intake Total 1800 ml Output Total 600 ml Balance 1200 ml Height & Weight Height: '" Weight: lbs. oz. kg; 33.85 BMI Method: General Appearance: WD/WN, Moderate Distress Neck: Normal Inspection Respiratory: Lungs Clear, Normal Breath Sounds, No Accessory Muscle Use, No Respiratory Distress Cardiovascular: Tachycardia Capillary Refill: Less Than 3 Seconds Extremity: Normal Capillary Refill, Normal Inspection, Normal Range of Motion Neurologic/Psychiatric: Alert, Oriented x3, No Motor/Sensory Deficits, Normal Mood/Affect Results Lab Laboratory Tests 12/03/20 17:10 5/25/21 04:20 Assessment/Plan Assessment/Plan Small bilateral pleural effusions -Decrease IVF to KVO NSTEMI -Cardiology is following -Echo Afib RVR -Now off Cardizem Hypophos/hypokalemia -Replace. ADRYAN KEARNEY DO December 04, 2020 05:25
[2020-12-04 05:31] LABS: BASOPHILS % (AUTO) 0 % (0-10); EOSINOPHILS # (AUTO) 0.1 10^3/uL (0.0-0.3); EOSINOPHILS % (AUTO) 2 % (0-10); HEMATOCRIT 27 % (35-52); LYMPHOCYTES % (AUTO) 30 % (12-44); MEAN CORPUSCULAR HEMOGLOBIN 30 pg (25-34); MEAN CORPUSCULAR HGB CONC 33 g/dL (32-36); MEAN CORPUSCULAR VOLUME 89 fL (80-99); MONOCYTES # (AUTO) 0.6 10^3/uL (0.0-1.0); MONOCYTES % (AUTO) 9 % (0-12); NEUTROPHILS # (AUTO) 3.9 10^3/uL (1.8-7.8); NEUTROPHILS % (AUTO) 59 % (42-75); PLATELET COUNT 249 10^3/uL (130-400); WHITE BLOOD COUNT 6.7 10^3/uL (4.3-11.0)
[2020-12-04] MEDS: POTASSIUM CL 10MEQ/50ML IVPB 50 ML IV SCH (05:44)
[2020-12-04] MEDS: MAGNESIUM 1 GM/100 ML IVPB 100 ML IV SCH (05:44)
[2020-12-04] MEDS: KCL 20 MEQ TAB (K-DUR) PO SCH (05:44)
--- NOTE | 2020-12-04 07:32 | Diagnostic Imaging Report ---
INDICATION: Atrial fibrillation with rapid ventricular response, myocardial infarction. TECHNIQUE: Single view chest 2:43 AM. CORRELATION STUDY: 12/03/2020 FINDINGS: Left-sided pacemaker. Heart size enlarged. Vasculature overall within normal limits. Some crowding at lung bases with bibasilar atelectasis versus infiltrate overall appears adversely changed. IMPRESSION: 1. Stable cardiac enlargement without overt failure. 2. Bibasilar opacity may reflect atelectasis and/or infiltrate may be accentuated by limited depth of inspiration. Dictated by: Dictated on workstation # [id number]
[2020-12-04] MEDS ORDERED: POTASSIUM PHOSPHATE INJ 30 MM in NS (IVPB) 250 ML IV ONE (08:00)
[2020-12-04] MEDS: ENOXAPARIN 100 MG/1 ML (LOVENOX) SYR SC SCH ×3 (08:16→20:10)
[2020-12-04] MEDS: LACTATED RINGERS 1,000 ML IV SCH (08:34)
[2020-12-04] MEDS: ASPIRIN E.C. 81 MG (ECOTRIN) TAB PO SCH (08:34)
[2020-12-04] MEDS ORDERED: HEParin (CATH LAB) 2,000 ML IV ONE (09:31)
[2020-12-04] MEDS ORDERED: LIDOCAINE 1% INJ 20 ML 20 ML VIAL ONE (09:31)
[2020-12-04] MEDS: ONDANSETRON 4 MG/2 ML (SDV) Z0FRAN IV PRN (09:39)
--- NOTE | 2020-12-04 10:41 | Consultation-Cardiology ---
HPI-Cardiology Cardiology Consultation Date of Consultation 12/04/20 Date of Admission Time Seen by Provider: 08:00 Indication: Acute myocardial infarction HPI 55-year-old lady with history of coronary artery disease, reporting mild disease by cardiac catheterization done in June 2019,Patient underwent hiatal hernia repair surgery last week, did not feel well since discharge from , continue to report episode of hypoxemia with oxygen saturation in the 70s then going up to the 90s. [place] tired at home, came into the emergency room with fatigue and hypoxemia and feeling tired, did not have chest pain at that time but she was n oted to have heart rate around 200. Patient was given Cardizem then adenosine, her heart slowed down to 120 and has been steady at 120. Reported history of ablation in the past, history of atrial fibrillation, currently maintained on Lovenox. On my evaluation she was having some chest discomfort, troponin is elevated. No acute ischemic EKG changes Home Medications & Allergies Allergies: Coded Allergies: Latex, Natural Rubber (Unverified Allergy, Intermediate, Shortness of Breath, 09/27/20) Home Medication List Reviewed: Yes [id number] Hx Patient Social History Recreational Drug Use: No Smoking Status: Never a Smoker 2nd Hand Smoke Exposure: No Recent Hopitalizations: No Have you traveled recently?: No Alcohol Use?: No Immunizations Up To Date Tetanus Booster (TDap): Less than 5yrs Date of Influenza Vaccine: May 04, 2020 Past Medical History Discussed below Family Medical History Family History: Colon cancer Review of Systems-General Review of Systems Constitutional: see HPI, malaise, weakness EENTM: no symptoms reported Respiratory: see HPI; No cough; dyspnea on exertion; No hemoptysis, No orth opnea, No phlegm; short of breath; No stridor, No wheezing, No other Cardiovascular: see HPI, chest pain; No edema, No Hx of Intervention; palpitations; No syncope, No vascular heart diseas, No other Gastrointestinal: see HPI, abdominal pain, nausea Genitourinary: no symptoms reported, see HPI Musculoskeletal: no symptoms reported, see HPI Skin: no symptoms reported, see HPI Psychiatric/Neurological: No Symptoms Reported, See HPI All Other Systems Reviewed Negative Unless Noted: Yes Reviewed Test Results Reviewed Test Results Lab Laboratory Tests Test 12/03/20 17:10 12/03/20 23:05 12/04/20 04:20 Range/Units White Blood Count 12.4 H 6.7 4.3-11.0 10^3/uL Red Blood Count 3.51 L 3.05 L 3.80-5.11 10^6/uL Hemoglobin 10.4 L 9.0 L 11.5-16.0 g/dL Hematocrit 31 L 27 L 35-52 % Mean Corpuscular Volume 89 89 80-99 fL Mean Corpuscular Hemoglobin 30 30 25-34 pg Mean Corpuscular Hemoglobin Concent 33 33 32-36 g/dL Red Cell Distribution Width 13.5 13.8 10.0-14.5 % Platelet Count 353 249 130-400 10^3/uL Mean Platelet Volume 11.1 11.0 9.0-12.2 fL Immature Granulocyte % (Auto) 1 1 % Neutrophils (%) (Auto) 73 59 42-75 % Lymphocytes (%) (Auto) 18 30 12-44 % Monocytes (%) (Auto) 8 9 0-12 % Eosinophils (%) (Auto) 1 2 0-10 % Basophils (%) (Auto) 0 0 0-10 % Neutrophils # (Auto) 9.0 H 3.9 1.8-7.8 10^3/uL Lymphocytes # (Auto) 2.2 2.0 1.0-4.0 10^3/uL Monocytes # (Auto) 1.0 0.6 0.0-1.0 10^3/uL Eosinophils # (Auto) 0.1 0.1 0.0-0.3 10^3/uL Basophils # (Auto) 0.0 0.0 0.0-0.1 10^3/uL Immature Granulocyte # (Auto) 0.1 0.1 0.0-0.1 10^3/uL Prothrombin Time 13.9 12.2-14.7 SEC INR Comment 1.0 0.8-1.4 Activated Partial Thromboplast Time 24 24-35 SEC Sodium Level 139 139 135-145 MMOL/L Potassium Level 3.5 L 3.3 L 3.6-5.0 MMOL/L Chloride Level 104 106 98-107 MMOL/L Carbon Dioxide Level 24 24 21-32 MMOL/L Anion Gap 11 9 5-14 MMOL/L Blood Urea Nitrogen 7 8 7-18 MG/DL Creatinine 0.82 0.63 0.60-1.30 MG/DL Estimat Glomerular Filtration Rate > 60 > 60 BUN/Creatinine Ratio 9 13 Glucose Level 155 H 96 70-105 MG/DL Calcium Level 9.3 8.7 8.5-10.1 MG/DL Corrected Calcium 9.1 8.5-10.1 MG/DL Magnesium Level 2.1 1.9 1.6-2.4 MG/DL Total Bilirubin 2.6 H 0.1-1.0 MG/DL Aspartate Amino Transf (AST/SGOT) 80 H 5-34 U/L Alanine Aminotransferase (ALT/SGPT) 43 0-55 U/L Alkaline Phosphatase 77 40-136 U/L Myoglobin 48.1 10.0-92.0 NG/ML Troponin I 4.538 *H 4.252 *H 3.649 *H <0.028 NG/ML B-Type Natriuretic Peptide 325.5 H <100.0 PG/ML Total Protein 7.8 6.4-8.2 GM/DL Albumin 4.2 3.2-4.5 GM/DL Phosphorus Level 2.2 L 2.3-4.7 MG/DL Triglycerides Level 95 <150 MG/DL Cholesterol Level 111 < 200 MG/DL LDL Cholesterol Direct 66 1-129 MG/DL VLDL Cholesterol 19 5-40 MG/DL HDL Cholesterol 29 L 40-60 MG/DL Procalcitonin 0.20 H <0.10 NG/ML Physical Exam Physical Exam Vital Signs Vital Signs - First Documented 12/03/20 12/03/20 16:45 17:45 Temp 36.8 Pulse 210 Resp 26 B/P (MAP) 107/77 (87) Pulse Ox 92 O2 Delivery Room Air O2 Flow Rate 1.00 Capillary Refill : Less Than 3 Seconds Height, Weight, BMI Height: '" Weight: lbs. oz. kg; 33.85 BMI Method: General Appearance: WD/WN, Moderate Distress Eyes: Bilateral Eye Normal Inspection, Bilateral Eye PERRL, Bilateral Eye EOMI HEENT: PERRL/EOMI, TMs Normal, Normal ENT Inspection, Pharynx Normal, Moist Mucous Membranes Neck: Normal Inspection Respiratory: Lungs Clear, Normal Breath Sounds, No Accessory Muscle Use, No Respiratory Distress Cardiovascular: No JVD, Tachycardia Gastrointestinal: Soft, Tenderness Back: Normal Inspection, No CVA Tenderness, No Vertebral Tenderness Extremity: Normal Capillary Refill, Normal Inspection, Normal Range of Motion Neurologic/Psychiatric: Alert, Oriented x3, No Motor/Sensory Deficits, Normal Mood/Affect Skin: Normal Color, Warm/Dry Lymphatic: No Adenopathy A/P-Cardiology Admission Diagnosis Paroxysmal atrial fibrillation Non-ST elevation myocardial infarction Hypertension Hyperlipidemia Assessment/Plan Paroxysmal atrial fibrillation, reporting history of ablation in the past, was at a heart rate 200, currently heart rate 120 without any change in rate while on Cardizem drip and after receiving a bolus. Patient reporting history of ablation done 3 times in the past. I believe that she has an accessory pathway, I will evaluate LENORE and cardioversion today. Continue on Lovenox Non-ST elevation myocardial infarction, elevation in troponin level, reporting history of cardiac catheterization done in 2019 and did not require any stenting. Troponin elevation could be secondary to her extreme tachycardia for the past week and recent surgery in addition to hypoxemia. Once clinically stable I will proceed with cardiac catheterization Sinus node dysfunction, history of permanent pacemaker, reporting that it was [employer] type. Continue to monitor Chest pain, probably secondary to tachycardia. Given morphine, no acute EKG changes. Continue to monitor Hypertension, restart home medication monitor blood pressure Hyperlipidemia, monitor lipids Hiatal hernia, status post repair surgery done last week at . ERIKA DE LA ROSA MD December 04, 2020 10:41
[2020-12-04] MEDS ORDERED: LIDOCAINE 2% VISCOUS 15 ML UDC ONE (10:55)
[2020-12-04] MEDS ORDERED: NS IV 500 ML 500 ML ONE (10:55)
[2020-12-04] MEDS ORDERED: MIDAZOLAM 5 MG/5 ML (VERSED) VIAL ONE ×2 (10:55→14:39)
[2020-12-04] MEDS ORDERED: proPOfol 200 MG/20 ML (DIPRIVAN) VIAL IV ONE (10:56)
--- NOTE | 2020-12-04 11:41 | History & Physical-Hospitalist ---
History of Present Illness HPI/Chief Complaint Maria Fernanda Rondon is a 55-year-old female with past medical history of hypertension, hyperlipidemia, atrial fibrillation on Eliquis, sick sinus syndrome status post pacemaker, hiatal hernia status post surgical repair last week, who presented with weakness. She says she feels like she "got hit by a truck". She has been feeling like this since after her surgery. She reports having chest pain with radiation to her back. She reports diaphoresis. She reports nausea. She is not feeling short of breath right now. She denies any cough. She denies any fevers. She has a bit of abdominal tenderness. She had been holding her Eliquis perioperatively. She has also been on sotalol and has not missed any doses. Source: patient Exam Limitations: no limitations Date Seen 12/04/20 Time Seen by a Provider: 08:30 Attending Physician Anderson Rea MD PCP Heriberto Nunn MD Referring Physician Date of Admission December 03, 2020 at 19:00 Home Medications & Allergies Home Medications Reviewed patient Home Medication Reconciliation performed by pharmacy medication reconciliations nitriles lab technician and/or nursing. Patients Allergies have been reviewed. Allergies Allergies Coded Allergies Latex, Natural Rubber (Unverified Allergy, Intermediate, Shortness of Breath, 09/27/20) Past Medical/Social/Family Hx Patient Social History Tobacco Use?: No Smoking Status: Never a Smoker Use of E-Cig and/or Vaping dev: No Substance use?: No Alcohol Use?: No Pt stated abuse/neglect: No Immunizations Up To Date Influenza Vaccine Up-to-Date: Yes; Up-to-Date Tetanus Booster (TDap): Unknown Hepatitis A: Yes Hepatitis B: Yes TB Skin Test: None Current Status status: No status: No Advance Directives: No Advance Directive Location: Home Communicates: Verbally Primary Language: Burkinan Preferred Spoken Language: Burkinan Is interpretation needed?: No Implanted or Applied Medical D: Pacemaker Past Medical History Hypertension Hyperlipidemia Atrial fibrillation Sick sinus syndrome status post pacemaker Hiatal hernia status post surgical repair Obesity Family Medical History Family Hx: Noncontributory Review of Systems Constitutional: no symptoms reported EENTM: no symptoms reported Respiratory: no symptoms reported Cardiovascular: chest pain Gastrointestinal: no symptoms reported Genitourinary: no symptoms reported Musculoskeletal: no symptoms reported Skin: no symptoms reported Psychiatric/Neurological: No Symptoms Reported Physical Exam Physical Exam Vital Signs Vital Signs - First Documented 12/03/20 12/03/20 16:45 17:45 Temp 36.8 Pulse 210 Resp 26 B/P (MAP) 107/77 (87) Pulse Ox 92 O2 Delivery Room Air O2 Flow Rate 1.00 Capillary Refill : Less Than 3 Seconds Height, Weight, BMI Height: '" Weight: lbs. oz. kg; 33.85 BMI Method: General Appearance: No Apparent Distress, WD/WN HEENT: PERRL/EOMI, Pharynx Normal Neck: Normal Inspection, Supple Respiratory: Lungs Clear, Normal Breath Sounds, No Respiratory Distress Cardiovascular: No Murmur, Tachycardia Gastrointestinal: Normal Bowel Sounds, Non Tender, Soft Extremity: Normal Inspection, Non Tender, No Pedal Edema Neurologic/Psychiatric: Alert, Oriented x3, No Motor/Sensory Deficits, Normal Mood/Affect Skin: Normal Color, Warm/Dry Results Results/Procedures Labs Laboratory Tests 12/03/20 17:10 12/04/20 04:20 Patient resulted labs reviewed. Imaging: Reviewed Imaging Report Assessment/Plan Admission Diagnosis Atrial fibrillation with rapid ventricular response Admission Status: Inpatient Order (span 2 midnights) Reason for Inpatient Admission: A. fib with RVR requiring IV medications and cardiology intervention Assessment and Plan Atrial fibrillation with rapid ventricular response NSTEMI HTN HLD Cardiology consulted, appreciate assistance Troponin significantly elevated at 4, repeat stable Started on Cardizem Therapeutic Lovenox Planning for LENORE cardioversion today Planning for left heart catheterization today Hypokalemia Hypophosphatemia Monitor and replace as needed Atelectasis Chest xray with atelectasis vs infiltrate CT chest with no PE, bibasilar atelectasis Hiatal hernia s/p surgical repair Monitor Diagnosis/Problems Diagnosis/Problems (1) Atrial fibrillation with RVR Status: Acute (2) NSTEMI (non-ST elevated myocardial infarction) Status: Acute (3) Hiatal hernia Status: Acute ANDERSON REA MD December 04, 2020 11:41
--- NOTE | 2020-12-04 12:28 | Anesthesia-General Post-Op ---
MAC Patient Condition Mental Status/LOC: Same as Preop Cardiovascular: Satisfactory Nausea/Vomiting: Absent Respiratory: Satisfactory Pain: Controlled Complications: Absent Post Op Complications Complications None Follow Up Care/Instructions Patient Instructions None needed. Anesthesiology Discharge Order Discharge Order Patient is doing well, no complaints, stable vital signs, no apparent adverse anesthesia problems. No complications reported per nursing. CHERY DYER CRNA December 04, 2020 12:28
--- NOTE | 2020-12-04 12:29 | Conscious Sedation/ASA ---
Conscious Sedation Pre-Proced Time 12:29 ASA Score 3 For ASA 3 and 4: Consider anesthesia and medical clearance. Also, for patients with a history of failed moderate sedation consider anesthesia. Airway Lungs Heart ASA score ASA 1: a normal healthy patient ASA 2: a patient with a mild systemic disease (mid diabetes, controlled hypertension, obesity x ASA 3: a patient with a severe systemic disease that limits activity (angina, COPD, prior Myocardial infarction) ASA 4: a patient with an incapacitating disease that is a constant threat to life (CHF, renal failure) ASA 5: a moribund patient not expected to survive 24 hrs. (ruptured aneurysm) ASA 6: a declared brain- patient whose organs are being harvested. For emergent operations, add the letter E after the classification Mallampati Classification Grade 3 Sedation Plan Analgesia, Amnesia, Plan communicated to team members, Discussed options with patient/fam, Discussed risks with patient/fam The patient is an appropriate candidate to undergo the planned procedure, sedation, and anesthesia. The patient immediately re-assessed prior to indication. ERIKA DE LA ROSA MD December 04, 2020 12:29
--- NOTE | 2020-12-04 12:30 | Cardioversion ---
Cardioversion PROCEDURE PHYSICIAN: Erika Ruvalcaba DATE OF PROCEDURE: 12/04/20 DIRECT EXTERNAL ELECTRICAL CARDIOVERSION: Indications: Atrial Fibrillation with rapid ventricular rate Preoperative diagnoses: Atrial Fibrillation with rapid ventricular rate Postoperative diagnosis: Sinus rhythm, Successful Electrical Cardioversion Anesthesia: By Anesthesia services Complications: None Specimen: None Contrast: 0 Flouroscopy: none Procedure Details: The patient was brought the laborer shaft sinking after informed consent was taken, all the risks and complications were explained including the risk of stroke. Electrical cardioversion was carried out with anesthesia support with propofol. 200 joules of synchronized shock was delivered through external patches which promptly restored sinus rhythm. The patient tolerated the procedure well. Conclusions: Successful electrical cardioversion terminating atrial flutter/fibrillation ERIKA RUVALCABA MD December 04, 2020 12:30
[2020-12-04] MEDS: DIAZEPAM 5 MG (VALIUM) TABLET PO PRN ×2 (13:02→20:16)
[2020-12-04] MEDS ORDERED: SOTA80TA62 PO (14:27)
[2020-12-04] MEDS ORDERED: LEVO100T7 PO (14:27)
[2020-12-04] MEDS ORDERED: FLUT16SP22 NSEACH (14:27)
[2020-12-04] MEDS ORDERED: OXYC5TAB PO (14:27)
[2020-12-04] MEDS ORDERED: DEXL60CA PO (14:27)
[2020-12-04] MEDS ORDERED: ENOX30DI4 IJ (14:27)
[2020-12-04] MEDS ORDERED: ONDA4TAB11 PO (14:27)
[2020-12-04] MEDS ORDERED: SULF1TAB35 PO (14:27)
[2020-12-04] MEDS ORDERED: fentaNYL INJ 100 MCG/2 ML AMP ONE (14:40)
[2020-12-04] MEDS ORDERED: NS IV 1000 ML 1,000 ML ONE (15:13)
[2020-12-04] MEDS ORDERED: VERAPAMIL 5 MG/2 ML (CALAN) VIAL IV ONE (15:24)
[2020-12-04] MEDS ORDERED: NITRO DRIP 25000 MCG/D5W 250 ML IV ONE (15:25)
[2020-12-04] MEDS ORDERED: HEParin 1000 UNIT/ML (10ML VIAL) FOR BOLUS ONE (15:25)
--- NOTE | 2020-12-04 16:09 | Cardiac Cath Report ---
Cardiac Cath Report Physician (s)/[employer] (s) Physician ERIKA DE LA ROSA MD Pre-Procedure Diagnosis Pre-Procedure Diagnosis: Non-ST elevation myocardial infarction Post-Procedure Note Procedure Start Date: December 04, 2020 Name of Procedure: Left heart catheterization Left ventriculogram Findings/Procedure Note PROCEDURE NOTE: 55-year-old lady admitted with chest pain and tachycardia, noted to have elevated troponin level, was in atrial fibrillation with rapid ventricular response, underwent LENORE and cardioversion earlier today then scheduled for cardiac catheterization. After explaining the procedure to the patient, all pros and cons were explained, all questions were answered. The patient signed the consent and then she was placed on the cardiac catheterization laboratory. Groin was prepped SL fashion local anesthesia was used. Sheath placed in the right femoral artery. Jackelyn right and left catheter were used to access the coronary system. Pigtail was used to access the left ventricular cavity. Left ventriculogram was done with very small amount of contrast At the end of the procedure the sheath was removed. Closure device was deployed FINDINGS: Hemodynamics LV 108/19, end-diastolic pressure of 19 Aorta 102/58 mean of 74 ANATOMY: Left Main is free of obstructive disease Left Anterior Descending has mild disease nonobstructive disease Left Circumflex is free of obstructive disease Right Coronary Artery is free of obstructive disease LV Gram was done with 5 mL of contrast, normal contractility, no segmental wall motion abnormality, ejection fraction 50% CONCLUSION: 1. Normal coronary system 2. Normal left ventricular size, EF 50%, elevated left ventricular end- diastolic pressure DISCUSSION AND RECOMMENDATION: Medical therapy is recommended no intervention is needed Anesthesia Type: Conscious Sedation Estimated blood loss (mL): 15 ml Contrast Amount: 30 ml Total Radiation Dose: 362 mGy Post-Procedure Diagnosis Post-operative diagnosis: Non-ST elevation myocardial infarction Coronary artery disease Atrial fibrillation Hypertension (1) Atrial fibrillation with RVR (2) NSTEMI (non-ST elevated myocardial infarction) (3) Hiatal hernia ERIKA DE LA ROSA MD December 04, 2020 4:09 pm
[2020-12-04] MEDS ORDERED: PATIENT MAY USE OWN MEDS, ALL PO SCH (16:15)
[2020-12-04] MEDS: NS IV 1000 ML 1,000 ML IV SCH ×2 (16:54→20:09)
[2020-12-04] MEDS: dilTIAZem DRIP PRE-MIX 125 ML IV SCH (19:35)
[2020-12-05] MEDS: morphine INJ 4 MG/ML 1 ML (VIAL/SYRINGE) IV PRN ×5 (02:14→15:29)
[2020-12-05] MEDS: ACETAMINOPHEN 500 MG TAB (TYLENOL) PO PRN (03:40)
[2020-12-05 04:08] LABS: BASOPHILS % (AUTO) 0 % (0-10); EOSINOPHILS # (AUTO) 0.2 10^3/uL (0.0-0.3); EOSINOPHILS % (AUTO) 3 % (0-10); HEMATOCRIT 26 % (35-52); HEMOGLOBIN 8.5 g/dL (11.5-16.0); LYMPHOCYTES # (AUTO) 1.6 10^3/uL (1.0-4.0); LYMPHOCYTES % (AUTO) 23 % (12-44); MEAN CORPUSCULAR HEMOGLOBIN 30 pg (25-34); MEAN CORPUSCULAR HGB CONC 32 g/dL (32-36); MEAN CORPUSCULAR VOLUME 92 fL (80-99); MEAN PLATELET VOLUME 11.1 fL (9.0-12.2); MONOCYTES # (AUTO) 0.7 10^3/uL (0.0-1.0); MONOCYTES % (AUTO) 10 % (0-12); NEUTROPHILS # (AUTO) 4.3 10^3/uL (1.8-7.8); NEUTROPHILS % (AUTO) 64 % (42-75); PLATELET COUNT 271 10^3/uL (130-400); WHITE BLOOD COUNT 6.8 10^3/uL (4.3-11.0)
[2020-12-05 04:17] LABS: CHLORIDE 106 MMOL/L (98-107); POTASSIUM 3.6 MMOL/L (3.6-5.0); SODIUM 137 MMOL/L (135-145)
[2020-12-05 04:18] LABS: CALCIUM 8.5 MG/DL (8.5-10.1)
[2020-12-05 04:19] LABS: GLUCOSE 91 MG/DL (70-105)
[2020-12-05 04:21] LABS: CARBON DIOXIDE 23 MMOL/L (21-32)
[2020-12-05 04:23] LABS: CREATININE SERUM 0.63 MG/DL (0.60-1.30); GFR ESTIMATED > 60; PHOSPHORUS 2.8 MG/DL (2.3-4.7)
[2020-12-05 04:24] LABS: BUN/CREATININE RATIO 14
[2020-12-05 04:25] LABS: MAGNESIUM 1.8 MG/DL (1.6-2.4)
[2020-12-05] MEDS: POTASSIUM CL 10MEQ/50ML IVPB 50 ML IV SCH (04:37)
[2020-12-05] MEDS: MAGNESIUM 1 GM/100 ML IVPB 100 ML IV SCH (04:37)
[2020-12-05] MEDS: KCL 20 MEQ TAB (K-DUR) PO SCH (04:38)
--- NOTE | 2020-12-05 05:11 | Pulmonary Progress Note ---
Subjective Time Seen by a Provider: 05:08 Subjective/Events-last exam Pt appears to be doing better. Sepsis Event Evaluation Height, Weight, BMI Height: '" Weight: lbs. oz. kg; 33.85 BMI Method: Exam Exam Vital Signs Date Time Temp Pulse Resp B/P (MAP) Pulse Ox O2 Delivery O2 Flow Rate FiO2 12/05/20 05:00 67 21 128/69 (88) 96 Nasal Cannula 2.00 12/05/20 04:00 64 13 115/71 (86) 96 Nasal Cannula 2.00 12/05/20 03:40 36.4 Nasal Cannula 2.00 12/05/20 03:40 96 Nasal Cannula 2.00 12/05/20 03:00 64 14 122/77 (92) 96 Nasal Cannula 2.00 12/05/20 02:00 67 15 105/66 (79) 96 Nasal Cannula 2.00 12/05/20 01:00 66 14 103/68 (80) 97 Nasal Cannula 2.00 12/05/20 01:00 66 12/05/20 00:00 64 12 109/72 (84) 97 Nasal Cannula 2.00 12/04/20 23:20 97 Nasal Cannula 2.00 12/04/20 23:20 36.3 Nasal Cannula 2.00 12/04/20 23:00 67 11 100/65 (77) 97 Nasal Cannula 2.00 12/04/20 22:00 65 18 108/63 (78) 99 Nasal Cannula 2.00 12/04/20 21:00 71 14 117/77 (90) 98 Nasal Cannula 2.00 12/04/20 20:00 71 11 107/65 (79) 95 Nasal Cannula 2.00 12/04/20 19:23 36.3 12/04/20 19:00 70 20 110/73 (85) 97 Nasal Cannula 2.00 12/04/20 19:00 96 Nasal Cannula 2.00 12/04/20 19:00 75 12/04/20 18:00 67 14 108/78 (88) 97 Nasal Cannula 2.00 12/04/20 17:45 65 16 97/69 (88) 98 12/04/20 17:30 64 17 103/77 (87) 97 12/04/20 17:15 64 12 104/76 (88) 95 12/04/20 17:00 64 12 109/61 (89) 95 5/25/21 16:45 67 18 100/65 (76) 94 12/04/20 16:30 65 11 107/68 (81) 95 Nasal Cannula 2.00 12/04/20 16:19 71 16 112/60 (93) 94 Nasal Cannula 2.00 12/04/20 16:15 96 Nasal Cannula 2.00 12/04/20 15:47 36.2 12/04/20 15:00 71 11 93/67 (76) 95 Nasal Cannula 2.00 12/04/20 14:00 72 13 107/71 (82) 94 Nasal Cannula 2.00 12/04/20 13:30 64 11 89/69 (81) 95 Nasal Cannula 2.00 12/04/20 13:00 64 13 98/62 (70) 99 Nasal Cannula 2.00 12/04/20 12:55 63 12 89/63 (76) 98 Nasal Cannula 2.00 12/04/20 12:45 65 13 92/71 (80) 99 Nasal Cannula 2.00 12/04/20 12:45 66 12/04/20 12:40 65 12 97/65 (78) 99 Nasal Cannula 2.00 12/04/20 12:35 66 13 96/66 (77) 99 Nasal Cannula 2.00 12/04/20 12:30 65 22 97/61 (72) 100 Nasal Cannula 2.00 12/04/20 12:20 80 13 98/71 (79) 97 Nasal Cannula 2.00 12/04/20 12:15 120 18 98/67 (76) 96 Nasal Cannula 2.00 12/04/20 12:10 105 12 105/72 (83) 97 Nasal Cannula 2.00 12/04/20 12:05 106 18 128/61 (87) 96 Nasal Cannula 2.00 12/04/20 12:00 36.4 109 14 112/88 (97) 99 Nasal Cannula 2.00 12/04/20 12:00 95 Nasal Cannula 2.00 12/04/20 11:45 115 14 106/87 (96) 97 Nasal Cannula 2.00 12/04/20 11:00 108 10 110/81 (91) 92 Nasal Cannula 2.00 12/04/20 10:00 112 13 108/85 (93) 95 Nasal Cannula 2.00 12/04/20 09:00 126 17 110/80 (90) 93 Nasal Cannula 2.00 12/04/20 08:00 36.4 12/04/20 08:00 124 18 101/72 (82) 94 Nasal Cannula 2.00 12/04/20 08:00 94 Nasal Cannula 2.00 12/04/20 07:00 122 18 111/82 (92) 96 Nasal Cannula 2.00 12/04/20 06:57 122 12/04/20 06:25 122 13 115/87 (96) 97 Nasal Cannula 2.00 I & O 12/05/20 07:00 Intake Total 850 ml Output Total 1500 ml Balance -650 ml Height & Weight Height: '" Weight: lbs. oz. kg; 33.85 BMI Method: General Appearance: No Apparent Distress, WD/WN HEENT: PERRL/EOMI, Pharynx Normal Neck: Normal Inspection, Supple Respiratory: Lungs Clear, Normal Breath Sounds, No Respiratory Distress Cardiovascular: No Murmur, Tachycardia Capillary Refill: Less Than 3 Seconds Extremity: Normal Inspection, Non Tender, No Pedal Edema Neurologic/Psychiatric: Alert, Oriented x3, No Motor/Sensory Deficits, Normal Mood/Affect Skin: Normal Color, Warm/Dry Lymphatic: No Adenopathy Results Lab Laboratory Tests 12/03/20 17:10 12/04/20 04:20 12/05/20 03:37 Assessment/Plan Assessment/Plan Small bilateral pleural effusions -Monitor -Give Lasix 40 mg x 1 NSTEMI -Cardiology is following -Echo Afib RVR -Now off Cardizem hypokalemia -Replace. ADRYAN KEARNEY DO December 05, 2020 05:11
[2020-12-05] MEDS ORDERED: FUROSEMIDE 40 MG/4 ML INJ (LASIX) IVP ONE (05:15)
--- NOTE | 2020-12-05 07:26 | Diagnostic Imaging Report ---
CHEST 1 VIEW, AP/PA ONLY Indication: Chest pain Comparison: 12/04/2020 Findings: Stable left pectoral transvenous dual-chamber pacemaker. Improved aeration left lung base with persistent heterogeneous opacities. No pleural effusion or pneumothorax. Stable cardiac silhouette. Impression: 1. Improving but persistent left basilar heterogeneous pulmonary opacities. 2. No adverse development. Dictated by: Dictated on workstation # [id number]
[2020-12-05] MEDS ORDERED: KCL 20 MEQ TAB (K-DUR) PO ONE ×2 (08:00)
[2020-12-05] MEDS: ENOXAPARIN 100 MG/1 ML (LOVENOX) SYR SC SCH (10:11)
[2020-12-05] MEDS: SENNA W/DOCUSATE (SENOKOT S) TABLET PO PRN ×2 (10:12→18:31)
[2020-12-05] MEDS: ASPIRIN E.C. 81 MG (ECOTRIN) TAB PO SCH (10:12)
--- NOTE | 2020-12-05 11:01 | Progress Note - Hospitalist ---
Subjective HPI/CC On Admission Date Seen by Provider: December 05, 2020 Time Seen by Provider: 08:20 Maria Fernanda Rondon is a 55-year-old female with past medical history of hypertension, hyperlipidemia, atrial fibrillation on Eliquis, sick sinus syndrome status post pacemaker, hiatal hernia status post surgical repair last week, who presented with weakness. She says she feels like she "got hit by a truck". She has been feeling like this since after her surgery. She reports having chest pain with radiation to her back. She reports diaphoresis. She reports nausea. She is not feeling short of breath right now. She denies any cough. She denies any fevers. She has a bit of abdominal tenderness. She had been holding her Eliquis perioperatively. She has also been on sotalol and has not missed any doses. Subjective/Events-last exam She is feeling a little better today. She is having some abdominal pain and back pain. She denies any chest pain or palpitations. She denies any shortness of breath. Objective Exam Vital Signs Vital Signs Date Time Temp Pulse Resp B/P (MAP) Pulse Ox O2 Delivery O2 Flow Rate FiO2 12/05/20 06:35 96 12/05/20 06:00 17 97 Nasal Cannula 2.00 12/05/20 03:40 36.4 Capillary Refill : Less Than 3 Seconds General Appearance: No Apparent Distress, Obese Respiratory: Lungs Clear, Normal Breath Sounds, No Respiratory Distress Cardiovascular: Regular Rate, Rhythm, No Edema, No Murmur Gastrointestinal: Normal Bowel Sounds, Soft, Tenderness Extremity: Normal Inspection, Non Tender, No Pedal Edema Neurologic/Psychiatric: Alert, Oriented x3, No Motor/Sensory Deficits, Normal Mood/Affect Skin: Normal Color, Warm/Dry Results/Procedures Lab Laboratory Tests 12/05/20 03:37 Patient resulted labs reviewed. Imaging: Reviewed Imaging Report Assessment/Plan Assessment and Plan Assess & Plan/Chief Complaint Atrial fibrillation with rapid ventricular response NSTEMI, type II HTN HLD Cardiology consulted, appreciate assistance LENORE Cardioversion performed yesterday, returned to normal sinus rhythm Not currently on any rate controlling medicines Therapeutic Lovenox Transfer to floor Atelectasis Chest xray with atelectasis vs infiltrate CT chest with no PE, bibasilar atelectasis Incentive spirometry Hiatal hernia s/p surgical repair Monitor Hypokalemia, resolved Hypophosphatemia, resolved Diagnosis/Problems Diagnosis/Problems (1) Atrial fibrillation with RVR Status: Acute (2) NSTEMI (non-ST elevated myocardial infarction) Status: Acute (3) Hiatal hernia Status: Acute (4) Obesity Status: Chronic ANDERSON REA MD December 05, 2020 11:01
[2020-12-05] MEDS: ONDANSETRON 4 MG/2 ML (SDV) Z0FRAN IV PRN (13:14)
--- NOTE | 2020-12-05 14:08 | Physical Therapy Evaluation ---
PT Evaluation-General Medical Diagnosis Admission Date December 03, 2020 at 19:00 Medical Diagnosis: a-fib Onset Date: December 03, 2020 Therapy Diagnosis Therapy Diagnosis: impaired mobility, strength, endurance Precautions Precautions/Isolations: Fall Prevention, Standard Precautions Referral Physician: Peg Reason for Referral: Evaluation/Treatment Medical History Additional Medical History Past Medical History Hypertension Hyperlipidemia Atrial fibrillation Sick sinus syndrome status post pacemaker Hiatal hernia status post surgical repair Obesity Reviewed History: Yes Social History Home: Single Level Current Living Status: Significant Other Entry Into Home: Stairs With Railing PT Steps Into Home: 20 (approx) Prior Prior Level of Function SCALE: Activities may be completed with or without assistive devices. 1-[place]-vwrlzxb completes the activity by him/herself with no assistance from a helper. 5-Set-up or Clean-up Assistance-helper sets up or cleans up; patient completes activity. [place] assists only prior to or following the activity. 4-Supervision or Touching Assistance-helper provides verbal cues and/or touching/steadying and/or contact guard assistance as patient completes activity. Assistance may be provided throughout the activity or intermittently. 3-Partial/Moderate Assistance-helper does LESS THAN HALF the effort. [place] l ifts, holds or supports trunk or limbs, but provides less than half the effort. 2-Substantial/Maximal Assistance-helper does MORE THAN HALF the effort. [place] lifts or holds trunk or limbs and provides more than half the effort. 8-Ovsjfvwbs-clgeio does ALL the effort. Patient does none of the effort to complete the activity. Or, the assistance of 2 or more helpers is required for t he patient to complete the activity. If activity was not attempted, code reason: 7-Patient Refused. 9-Not Applicable-not attempted and the patient did not perform the activity before the current illness, exacerbation or injury. 10-Not Attempted due to Environmental Limitations-(lack of equipment, weather restraints, etc.). 88-Not Attempted due to Medical Conditions or Safety Concerns. Bed Mobility: 6 Transfers (B,C,W/C): 6 Gait: 6 Stairs: 6 Indoor Mobility (Ambulation): Independent Stairs: Independent PT Evaluation-Current Subjective Patient in bed pre tx, agrees to PT, has unrated pain in upper abdomen and middle of back. Pt/Family Goals to be independent at home Objective Patient Orientation: Person, Place, Situation ROM/Strength ROM Lower Extremities WNL Strength Lower Extremities LLE (hip flexion 3+/5, knee flexion 5/5, knee extension 5/5, dorsiflexion 4+/5), RLE (hip flexion 3+/5, knee flexion 4/5, knee extension 4/5, dorsiflexion 4+/5) Sensory Vision: Functional Hearing: Functional Sensation Right Lower Extremit: Impaired Sensation Left Lower Extremity: Impaired Sensation Lower Extremities patient seemed to have impaired light touch sensation bilateral lower extremities from mid calf down Transfers Roll Left to Right (QC): 6 Lying to Sitting/Side of Bed(Q: 6 Sit to Stand (QC): 4 Chair/Bxy-ns-Qmjac Xfer(QC): 4 Gait Does the Patient Walk?: Yes Mode of Locomotion: Walk Anticipated Mode of Locomotion: Walk Walk 10 feet (QC): 4 Walk 50 ft with 2 Turns(QC): 4 Distance: 80' Gait Assistive Device: None Comments/Gait Description Patient stared using the RW and then said she didn't need it, patient ambulates with CGA, very slow and tentative steps but no LOB. No SOB or increased pain with ambulation. Balance Sitting Static: Normal Sitting Dynamic: Normal Standing Static: Good Standing Dynamic: Fair Treatment BLE seated exercises x20 (AP, LAQ) Assessment/Needs Patient in recliner post tx with nurse call, phone, tray, all needs met. Patient needs CGA for transfers and ambulation, ambulates very slowly, can ambulate without an assistive device. Rehab Potential: Fair PT Solid State Tester Goals Solid State Tester Goals PT [facility] Goals Time Frame: Dec 12, 2020 Roll Left & Right (QC): 6 Sit to Lying (QC): 6 Lying-Sitting on Side/Bed(QC): 6 Sit to Stand (QC): 5 Chair/Nxo-bb-Qozpl Xfer(QC): 5 Walk 10 feet (QC): 5 Walk 50ft with 2 Turns (QC): 5 Walk 150 ft (QC): 5 1 Step (curb) (QC): 5 4 Steps (QC): 5 12 Steps (QC): 5 PT Plan Problem List Problem List: Activity Tolerance, Functional Strength, Safety, Balance, Gait, Transfer Treatment/Plan Treatment Plan: Continue Plan of Care Treatment Plan: Education, Functional Activity Patricia, Functional Strength, Gait, Safety, Therapeutic Exercise, Transfers Treatment Duration: Dec 12, 2020 Frequency: 6 times per week Estimated Hrs Per Day: .25 hour per day Patient and/or Family Agrees t: Yes Safety Risks/Education Patient Education: Gait Training, Transfer Techniques, Correct Positioning, Safety Issues Teaching Recipient: Patient Teaching Methods: Demonstration, Discussion Response to Teaching: Reinforcement Needed Discharge Recommendations Plan Patient will perform bed mobility and transfer training, balance and endurance training, functional strengthening, stair training, gait training, and educat ion, to improve functional mobility and independence at home. Therapy Discharge Recommendati: Home & Family, Post Acute PT Time/GCodes Time In: 1335 Time Out: 1348 Total Billed Treatment Time: 13 Total Billed Treatment 1 visit EVL ALY VERMA PT December 05, 2020 14:08
--- NOTE | 2020-12-05 14:44 | Occupational Therapy Eval ---
OT Evaluation-General/PLF Medical Diagnosis Admission Date December 03, 2020 at 19:00 Medical Diagnosis: a-fib Onset Date: December 03, 2020 Therapy Diagnosis Therapy Diagnosis: weakness Precautions Precautions/Isolations: Fall Prevention, Standard Precautions Referral Physician: Peg Pires Reason: Evaluation/Treatment Medical History Pertinent Medical History: Atrial Fib, HTN Additional Medical History HTN, hyperlipidemia, AFib, pacemaker, obesity Current History ED due to weakness, p[t had hiatal hernia s/p repair last week Social History Home: Single Level Current Living Status: Significant Other Entry Into Home: Stairs With Railing Steps Into Home: 20 (approx) ADL-Prior Level of Function SCALE: Activities may be completed with or without assistive devices. 9-Bmmvqyfdnq-mgvpjeg completes the activity by him/herself with no assistance from a helper. 5-Set-up or Clean-up Assistance-helper sets up or cleans up; patient completes activity. [place] assists only prior to or following the activity. 4-Supervision or Touching Assistance-helper provides verbal cues and/or touching/steadying and/or contact guard assistance as patient completes activity. Assistance may be provided throughout the activity or intermittently. 3-Partial/Moderate Assistance-helper does LESS THAN HALF the effort. [place] lifts, holds or supports trunk or limbs, but provides less than half the effort. 2-Substantial/Maximal Assistance-helper does MORE THAN HALF the effort. [place] lifts or holds trunk or limbs and provides more than half the effort. 6-Bgdlzkdrt-nvkpkc does ALL the effort. Patient does none of the effort to comp lete the activity. Or, the assistance of 2 or more helpers is required for the patient to complete the activity. If activity was not attempted, code reason: 7-Patient Refused. 9-Not Applicable-not attempted and the patient did not perform the activity before the current illness, exacerbation or injury. 10-Not Attempted due to Environmental Limitations-(lack of equipment, weather restraints, etc.). 88-Not Attempted due to Medical Conditions or Safety Concerns. ADL PLOF Comments Pt indicates she was IND with ADLs and functional mobility at [facility], no AD/AE. She lives in a [facility], has 20 steps to enter with a hand rails on each side. She has a tub/shower without SC Self Care: Independent Functional Cognition: Independent DME/Equipment: Tub/Shower OT Current Status Subjective Pt laying in bed, agreeable to OT evaluation and tx. Mental Status/Objective Patient Orientation: Person, Place, Time, Situation Current Upper Extremity ROM WFL, BUE shoulder flexion to approx 140 degrees Upper Extremity Coordination WFL Upper Extremity Sensation WFL ADL-Treatment On/Off Footwear (QC): 6 (IND with gripper socks.) Toileting Hygiene (QC): 6 (Per pt report) Other Treatments Pt laying in bed, transferred EOB and donned socks. Pt performed functional mobility in hallway, began using FWW but states she didn't need it. pt ambulated 80', CGA with slow steps. Pt returned to her room, transferring to recliner. Post tx, pt seated in recliner, call light in reach and all needs met. Education OT Patient Education: Correct positioning, Energy conservation, Exercise program, Modified ADL techniques, Progress toward Goal/Update tx plan, Purpose of tx/functional activities, Rehab process Teaching Recipient: Patient Teaching Methods: Discussion Response to Teaching: Verbalize Understanding OT Custodial Goals Custodial Goals Time Frame: Dec 14, 2020 Eating (QC): 6 Oral Hygiene (QC): 6 Toileting Hygiene (QC): 6 Shower/Bathe Self (QC): 6 Upper Body Dressing (QC): 6 Lower Body Dressing (QC): 6 On/Off Footwear (QC): 6 Additional Goals: 1-Demonstrate ADL Tasks, 2-Verbalize Understanding, 3- ImproveStrength/Patricia 1=Demonstrate adherence to instructed precautions during ADL tasks. 2=Patient will verbalize/demonstrate understanding of assistive devices/modifications for ADL. 3=Patient will improve strength/tolerance for activity to enable patient to perform ADL's. OT Education/Plan Problem List/Assessment Assessment: Decreased Activ Tolerance, Decreased UE Strength, Impaired Funct Balance, Impaired I ADL's Pt would benefit from skilled OT services in order to increase BUE Strength and activity tolerance, as well as increase safety and independence to maximize LOF for safe return home. Discharge Recommendations Plan/Recommendations: Continue POC Treatment Plan/Plan of Care Patient would benefit from OT for education, treatment and training to promote independence in ADL's, mobility, safety and/or upper extremity function for ADL's. Plan of Care: ADL Retraining, Functional Mobility, UE Funct Exercise/Act Treatment Duration: Dec 14, 2020 Frequency: 5 times per week Estimated Hrs Per Day: .25 hour per day Rehab Potential: Fair Time/GCodes Start Time: 13:32 Stop Time: 13:46 Total Time Billed (hr/min): 14 Billed Treatment Time 1, YENNIFER RIVERS OT December 05, 2020 14:43
[2020-12-05] MEDS: DIAZEPAM 5 MG (VALIUM) TABLET PO PRN ×2 (15:29→22:30)
--- NOTE | 2020-12-05 16:47 | Cardiology Progress Note ---
Subjective Date Seen by Provider: December 05, 2020 Time Seen by Provider: 09:00 Subjective/Events-last exam Patient was seen at bedside, she was laying down comfortably, complain of fatigue and general loss of energy Review of Systems General: No Chills, No Night Sweats; Fatigue, Malaise; No Appetite, No Other HEENT: No Head Aches, No Visual Changes, No Eye Pain, No Ear Pain, No Dysphasia, No Sinus Congestion, No Post Nasal Drip, No Sore Throat, No Other Pulmonary: Dyspnea; No Cough, No Pleuritic Chest Pain, No Other Cardiovascular: No: Chest Pain, Palpitations, Orthopnea, Paroxysmal Noc. Dyspnea, Edema, Lt Headedness, Other Objective-Cardiology Exam Last Set of Vital Signs Vital Signs 12/05/20 15:35 Temp 36.4 Pulse 69 Resp 16 B/P (MAP) 121/66 (84) Pulse Ox 95 O2 Delivery Nasal Cannula O2 Flow Rate 2.00 Capillary Refill : Less Than 3 Seconds I&O Intake and Output 12/05/20 00:00 Intake Total 900 ml Output Total 2275 ml Balance -1375 ml Intake Oral 900 ml Output Urine Total 2275 ml General: Alert, Oriented X3, Cooperative HEENT: Atraumatic, PERRLA Neck: Supple, No JVD, No Thyromegaly Lungs: Clear to Auscultation, Normal Air Movement Heart: Regular Rate, Normal S1, Normal S2, No Murmurs Abdomen: Normal Bowel Sounds, Soft, No Tenderness, No Hepatosplenomegaly, No Masses Extremities: No Clubbing, No Cyanosis, No Edema, Normal Pulses, No Tenderness/Swelling Skin: No Rashes, No Breakdown, No Significant Lesion Neuro: Normal Gait, Normal Speech, Strength at 5/5 X4 Ext, Normal Tone, Sensation Intact Psych/Mental Status: Mental Status NL, Mood NL Results Lab Laboratory Tests 12/05/20 03:37 A/P-Cardiology Admission Diagnosis Paroxysmal atrial fibrillation Non-ST elevation myocardial infarction Hypertension Hyperlipidemia Assessment/Plan Paroxysmal atrial fibrillation, reporting history of ablation in the past, status post LENORE and cardioversion, still in sinus rhythm. Changing to Eliquis Non-ST elevation myocardial infarction, elevation in troponin level, type II myocardial infarction, cardiac catheterization was carried out on December 04, 2020, mild to moderate disease nonobstructive disease. Medical therapy is recommended Sinus node dysfunction, history of permanent pacemaker, reporting that it was Medtronic type. Continue to monitor Chest pain, probably secondary to tachycardia. Given morphine, no acute EKG changes. Continue to monitor Hypertension, monitor blood pressure Hyperlipidemia, monitor lipids Hiatal hernia, status post repair surgery done last week at . Generalized fatigue and loss of energy. Recommend physical therapy and exercise ERIKA DE LA ROSA MD December 05, 2020 4:47 pm
[2020-12-05] MEDS ORDERED: ACETAMINOPHEN 325 MG TABLET PO PRN (18:00)
[2020-12-05] MEDS ORDERED: SIMETHICONE 80 MG (MYLICON) CHEW PO PRN (18:00)
[2020-12-05] MEDS: APIXABAN 5 MG (ELIQUIS) TABLET PO SCH (20:38)
[2020-12-05] MEDS: SOTALOL 80 MG (BETAPACE) TAB PO SCH (20:40)
[2020-12-06 04:51] LABS: BASOPHILS % (AUTO) 0 % (0-10); EOSINOPHILS # (AUTO) 0.1 10^3/uL (0.0-0.3); EOSINOPHILS % (AUTO) 2 % (0-10); HEMATOCRIT 26 % (35-52); HEMOGLOBIN 8.4 g/dL (11.5-16.0); LYMPHOCYTES # (AUTO) 1.3 10^3/uL (1.0-4.0); LYMPHOCYTES % (AUTO) 22 % (12-44); MEAN CORPUSCULAR HEMOGLOBIN 29 pg (25-34); MEAN CORPUSCULAR HGB CONC 33 g/dL (32-36); MEAN CORPUSCULAR VOLUME 90 fL (80-99); MEAN PLATELET VOLUME 10.8 fL (9.0-12.2); MONOCYTES # (AUTO) 0.5 10^3/uL (0.0-1.0); MONOCYTES % (AUTO) 9 % (0-12); NEUTROPHILS # (AUTO) 3.8 10^3/uL (1.8-7.8); NEUTROPHILS % (AUTO) 66 % (42-75); PLATELET COUNT 281 10^3/uL (130-400); WHITE BLOOD COUNT 5.8 10^3/uL (4.3-11.0)
[2020-12-06 04:58] LABS: CHLORIDE 104 MMOL/L (98-107); POTASSIUM 3.7 MMOL/L (3.6-5.0); SODIUM 138 MMOL/L (135-145)
[2020-12-06 05:00] LABS: CALCIUM 8.9 MG/DL (8.5-10.1); GLUCOSE 83 MG/DL (70-105)
[2020-12-06 05:02] LABS: CARBON DIOXIDE 24 MMOL/L (21-32)
[2020-12-06 05:04] LABS: CREATININE SERUM 0.65 MG/DL (0.60-1.30); GFR ESTIMATED > 60; PHOSPHORUS 3.1 MG/DL (2.3-4.7)
[2020-12-06 05:05] LABS: BUN/CREATININE RATIO 14
[2020-12-06 05:06] LABS: MAGNESIUM 1.7 MG/DL (1.6-2.4)
[2020-12-06] MEDS: POTASSIUM CL 10MEQ/50ML IVPB 50 ML IV SCH (05:23)
[2020-12-06] MEDS: MAGNESIUM 1 GM/100 ML IVPB 100 ML IV SCH (05:24)
[2020-12-06] MEDS ORDERED: LEVOTHYROXINE 100 MCG (LEVOTHROID) TAB PO SCH (06:30)
[2020-12-06] MEDS ORDERED: PANTOPRAZOLE 40 MG (PROTONIX) TAB PO SCH (07:00)
[2020-12-06] MEDS: ONDANSETRON 4 MG/2 ML (SDV) Z0FRAN IV PRN (08:02)
[2020-12-06] MEDS: morphine INJ 4 MG/ML 1 ML (VIAL/SYRINGE) IV PRN ×2 (08:03→12:52)
--- NOTE | 2020-12-06 08:28 | Cardiology Progress Note ---
Subjective Date Seen by Provider: December 06, 2020 Time Seen by Provider: 08:27 Subjective/Events-last exam Patient was seen at bedside, laying down comfortably, feeling better today. Still having some epigastric and left sided chest pain Review of Systems General: No Chills, No Night Sweats; Fatigue; No Malaise, No Appetite, No Other HEENT: No Head Aches, No Visual Changes, No Eye Pain, No Ear Pain, No Dysphasia, No Sinus Congestion, No Post Nasal Drip, No Sore Throat, No Other Pulmonary: No Dyspnea, No Cough, No Pleuritic Chest Pain, No Other Cardiovascular: Chest Pain; No: Palpitations, Orthopnea, Paroxysmal Noc. Dys pnea, Edema, Lt Headedness, Other Objective-Cardiology Exam Last Set of Vital Signs Vital Signs 12/05/20 12/06/20 20:00 08:00 Temp 36.6 Pulse 69 Resp 16 B/P (MAP) 121/77 (92) Pulse Ox 95 O2 Delivery Room Air O2 Flow Rate 2.00 Capillary Refill : Less Than 3 Seconds I&O Intake and Output 12/06/20 00:00 Intake Total 1205 ml Output Total 1400 ml Balance -195 ml Intake Oral 1205 ml Output Urine Total 1400 ml # Voids 3 General: Alert, Oriented X3, Cooperative HEENT: Atraumatic, PERRLA Neck: Supple, No JVD, No Thyromegaly Lungs: Clear to Auscultation, Normal Air Movement Heart: Regular Rate, Normal S1, Normal S2, No Murmurs Abdomen: Normal Bowel Sounds, Soft, No Tenderness, No Hepatosplenomegaly, No Masses Extremities: No Clubbing, No Cyanosis, No Edema, Normal Pulses, No Tenderness/Swelling Skin: No Rashes, No Breakdown, No Significant Lesion Neuro: Normal Gait, Normal Speech, Strength at 5/5 X4 Ext, Normal Tone, Sensa tion Intact Psych/Mental Status: Mental Status NL, Mood NL Results Lab Laboratory Tests 12/06/20 04:27 A/P-Cardiology Admission Diagnosis Paroxysmal atrial fibrillation Non-ST elevation myocardial infarction Hypertension Hyperlipidemia Assessment/Plan Paroxysmal atrial fibrillation, reporting history of ablation in the past, status post LENORE and cardioversion, still in sinus rhythm. Changing to Eliquis Non-ST elevation myocardial infarction, elevation in troponin level, type II shari cardial infarction, cardiac catheterization was carried out on December 04, 2020, mild to moderate disease nonobstructive disease. Medical therapy is recommended Sinus node dysfunction, history of Medtronic dual-chamber pacemaker, Functioning normally. Continue to monitor Chest pain, probably secondary to tachycardia. Given morphine, no acute EKG changes. Continue to monitor Hypertension, monitor blood pressure Hyperlipidemia, monitor lipids Hiatal hernia, status post repair surgery done last week at . Generalized fatigue and loss of energy. Recommend physical therapy and exercise Okay for discharge from cardiology standpoint and follow-up as an outpatient ERIKA DE LA ROSA MD December 06, 2020 08:28
[2020-12-06] MEDS ORDERED: APIXABAN 5 MG (ELIQUIS) TABLET PO SCH (09:00)
[2020-12-06] MEDS: APIXABAN 5 MG (ELIQUIS) TABLET PO SCH (09:35)
[2020-12-06] MEDS: ASPIRIN E.C. 81 MG (ECOTRIN) TAB PO SCH (09:36)
[2020-12-06] MEDS: SOTALOL 80 MG (BETAPACE) TAB PO SCH (09:36)
[2020-12-06] MEDS ORDERED: OXYC5TAB PO (09:41)
--- NOTE | 2020-12-06 10:23 | Physical Therapy Daily Note ---
PT Daily Note-Current Subjective Patient is up independently in room upon PT entry. Agrees to PT. Mental Status Patient Orientation: Normal For Age Transfers SCALE: Activities may be completed with or without assistive devices. 9-Mhzlymbpxd-oeojenx completes the activity by him/herself with no assistance from a helper. 5-Set-up or Clean-up Assistance-helper sets up or cleans up; patient completes activity. [place] assists only prior to or following the activity. 4-Supervision or Touching Assistance-helper provides verbal cues and/or touching/steadying and/or contact guard assistance as patient completes activity. Assistance may be provided throughout the activity or intermittently. 3-Partial/Moderate Assistance-helper does LESS THAN HALF the effort. [place] lifts, holds or supports trunk or limbs, but provides less than half the effort. 2-Substantial/Maximal Assistance-helper does MORE THAN HALF the effort. [place] lifts or holds trunk or limbs and provides more than half the effort. 4-Oqvcztpkm-wgzskh does ALL the effort. Patient does none of the effort to complete the activity. Or, the assistance of 2 or more helpers is required for the patient to complete the activity. If activity was not attempted, code reason: 7-Patient Refused. 9-Not Applicable-not attempted and the patient did not perform the activity before the current illness, exacerbation or injury. 10-Not Attempted due to Environmental Limitations-(lack of equipment, weather restraints, etc.). 88-Not Attempted due to Medical Conditions or Safety Concerns. Sit to Lying (QC): 6 (went to bed after PT) Gait Training Does the Patient Walk?: Yes Distance: 250' Walk 10 feet (QC): 6 Walk 50 ft with 2 Turns(QC): 6 Walk 150 ft (QC): 6 Gait Assistive Device: None safe and functional with no deviation/very slow, steady gait sequence Assessment Patient is currently at independent OF and is up in room ad promise, PT to dismiss patient from services at this time. PT Workers Compensation Attorney Goals Workers Compensation Attorney Goals PT Workers Compensation Attorney Goals Time Frame: Dec 12, 2020 Roll Left & Right (QC): 6 Sit to Lying (QC): 6 Lying-Sitting on Side/Bed(QC): 6 Sit to Stand (QC): 5 Chair/Okn-av-Rxeeh Xfer(QC): 5 Walk 10 feet (QC): 5 Walk 50ft with 2 Turns (QC): 5 Walk 150 ft (QC): 5 1 Step (curb) (QC): 5 4 Steps (QC): 5 12 Steps (QC): 5 PT Plan Treatment/Plan Treatment Plan: Discontinue PT Treatment Plan: Education, Functional Activity Patricia, Functional Strength, Gait , Safety, Therapeutic Exercise, Transfers Treatment Duration: Dec 12, 2020 Frequency: 6 times per week Estimated Hrs Per Day: .25 hour per day Patient and/or Family Agrees t: Yes Time/GCodes Time In: 910 Time Out: 919 Total Billed Treatment Time: 9 Total Billed Treatment 1 visit FA 9 min DAREN VAZQUEZ PT December 06, 2020 10:23
[2020-12-06] MEDS: DIAZEPAM 5 MG (VALIUM) TABLET PO PRN (10:42)
--- NOTE | 2020-12-06 10:43 | Discharge Summary ---
Discharge Summary Reconcile Patient Problems Problems Reviewed?: Yes Instructions for Patient Via At The Pool, Assessment/Instructions Take medications as prescribed. You are being set up with home health. Follow- up with your primary care physician. Follow-up with your surgeons at . Return with worsening chest pain, palpitations, shortness of breath, or if you feel like you are getting worse. Physician to follow Patient: Alrine Discharge Diet for Home: Low Sodium Diet Hospital Course Date of Admission: December 03, 2020 at 19:00 Admission Diagnosis : Atrial fibrillation with rapid ventricular response Family Physician/Provider: Heriberto Nunn MD Date of Discharge: 12/06/20 Discharge Diagnosis: Atrial fibrillation with rapid ventricular response Hospital Course: Maria Fernanda Rondon is a 55-year-old female who presented with weakness and was admitted with atrial fibrillation with rapid ventricular response. She had undergone a hiatal hernia repair at [facility] 1 week ago and had been feeling weak ever since. Cardiology was consulted and assisted with her care. She underwent a LENORE cardioversion and she returned to normal sinus rhythm. She continued her home sotalol. She was restarted on her home Eliquis. Her course was complicated by elevated troponin and non-ST elevation MS. She underwent a left heart catheterization which revealed no significant coronary artery disease. She was set up with home health care on discharge. She should follow-up with her surgeons at within a week. She should follow-up with her primary care physician in a week or two. Labs and Pending Lab Test: Laboratory Tests 12/06/20 04:27: White Blood Count 5.8, Red Blood Count 2.86L, Hemoglobin 8.4L, Hematocrit 26L, Mean Corpuscular Volume 90, Mean Corpuscular Hemoglobin 29, Mean Corpuscular Hemoglobin Concent 33, Red Cell Distribution Width 15.3H, Platelet Count 281, Mean Platelet Volume 10.8, Immature Granulocyte % (Auto) 1, Neutrophils (%) (Auto) 66, Lymphocytes (%) (Auto) 22, Monocytes (%) (Auto) 9, Eosinophils (%) (Auto) 2, Basophils (%) (Auto) 0, Neutrophils # (Auto) 3.8, Lymphocytes # (Auto) 1.3, Monocytes # (Auto) 0.5, Eosinophils # (Auto) 0.1, Basophils # (Auto) 0.0, Immature Granulocyte # (Auto) 0.0, Sodium Level 138, Potassium Level 3.7, Chloride Level 104, Carbon Dioxide Level 24, Anion Gap 10, Blood Urea Nitrogen 9, Creatinine 0.65, Estimat Glomerular Filtration Rate > 60, BUN/Creatinine Ratio 14, Glucose Level 83, Calcium Level 8.9, Phosphorus Level 3.1, Magnesium Level 1.7 Microbiology 12/03/20 MRSA Screen - Final, Complete MRSA not isolated Home Meds Active Oxycodone HCl 5 Mg Tablet 5-15 Mg PO Q4H PRN 7 Days TAKES 1 TO 3 (5MG) TABS Reported Levothyroxine Sodium 100 Mcg Tablet 100 Mcg PO DAILY LAST FILLED 08-26-2020 #30/30 DAY SUPPLY Fluticasone Propionate 16 Gm [place].susp 1 [place] NSEACH BID PRN Sotalol (Sotalol HCl) 80 Mg Tablet 40 Mg PO BID TAKES OF A 40MG TAB Dexilant (Dexlansoprazole) 60 Mg Cap.bp 60 Mg PO DAILY Bactrim Ds Tablet (Sulfamethoxazole/Trimethoprim) 1 Each Tablet 1 Ea PO BID FILLED 12-01-2020 #6/3 DAY SUPPLY Ondansetron Odt (Ondansetron) 4 Mg Tab.rapdis 4 Mg PO Q6H PRN Eliquis (Apixaban) 5 Mg Tablet 5 Mg PO DAILY Consulations Cardiology Patient Allergies: Coded Allergies: Latex, Natural Rubber (Unverified Allergy, Intermediate, Shortness of Breath, 09/27/20) Home Health Need/Face to Face Date of Face to Face: December 06, 2020 Clinical Findings: Generalized weakness and fatigue, Muscle weakness I have seen Pt [id number]: Yes Discharged To: Home Diagnosis/Conditions: Hiatal hernia status post repair Atrial fibrillation Debility Obesity Problems/Diagnosis/Condition: (1) Hiatal hernia (2) A-fib (3) Obesity Patient is Homebound due to: [place] fall risk due to instabilty, Muscle weakness Homebound Status Due to the above stated illness, injury or surgical procedure (medical condition or diagnosis) and associated clinical findings, the patient is homebound because of his/her inability to leave home except with aid of a supportive device and/or person AND leaving the home requires a considerable and taxing effort or is medically contraindicated. Pt req the following assistanc: Aid of another person Home Health Nursing Orders Home Health Services Order: Nursing Services, Broaching Machine Set Up Operator-Evaluate & Treat, Physical Therapy-Evaluate & Treat Home Health Infusion Therapy Line Start Date: December 03, 2020 Therapy Orders Therapy Orders: OT (must have SN or PT order), Physical Therapy Therapy Specific Orders: Eval assistive deivces, Teach enviro modifications/safety, Gait training, Increase strength/endurance Certify Stmt I certify that this patient is under my care and that I, a nurse practitioner or a physician; a insurance sales assistant working with me, had a face to face encounter that - meets the physician face to face encounter requirements with this patient as dated. Discharge Physical Exam General: Alert, Oriented X3, Cooperative, No Acute Distress HEENT: Atraumatic, PERRLA, EOMI, Mucous Memb Moist/[place] Lungs: Clear to Auscultation, Normal Air Movement Heart: Regular Rate, Normal S1, Normal S2, No Murmurs Abdomen: Normal Bowel Sounds, Soft, Other (Tenderness) Extremities: No Edema, No Tenderness/Swelling Skin: No Rashes, No Significant Lesion Neuro: Normal Speech, Normal Tone Psych/Mental Status: Mental Status NL, Other (Depressed mood) ANDERSON REA MD December 06, 2020 10:42
--- NOTE | 2020-12-06 12:50 | Occ Therapy Progress Note ---
Therapy Progress Note OT visited with pt, pt states she is doing better today. Pt is up ad promise in room, toilets self independently. Pt indicates she has no concerns with her ability to complete ADLs at this time, and plans to have her S.O. close by at home when she showers. Pt reports being IND with ADLs at this time. D/C from OT at this time due to pt being IND with ADLs and at PLOF 1, visit 1155 YENNIFER SIMMONS OT December 06, 2020 12:50
== END 2020-12-06 16:10 | disposition home health service (06) | DRG 281 ==
LOC: EDUNIT# 16:35 → ER 16:36 → ICU 19:00 → 4TH 12-05 12:02
PROVIDERS: ADMIT Internal Medicine; ATTEND Internal Medicine
PROC: 5A2204Z Restoration of Cardiac Rhythm, Single (ICD-10-PCS; principal; 2020-12-04)
PROC: 4A023N7 Measurement of Cardiac Sampling and Pressure, Left Heart, Percutaneous Approach (ICD-10-PCS; 2020-12-04)
PROC: B2111ZZ Fluoroscopy of Multiple Coronary Arteries using Low Osmolar Contrast (ICD-10-PCS; 2020-12-04)
PROC: B2151ZZ Fluoroscopy of Left Heart using Low Osmolar Contrast (ICD-10-PCS; 2020-12-04)
DX: I48.0 Paroxysmal atrial fibrillation (principal); I21.A1 Myocardial infarction type 2; J98.11 Atelectasis; J90 Pleural effusion, not elsewhere classified; I48.92 Unspecified atrial flutter; Z79.01 Long term (current) use of anticoagulants; I47.1 Supraventricular tachycardia; I49.5 Sick sinus syndrome; K22.70 Barrett's esophagus without dysplasia; E03.9 Hypothyroidism, unspecified; F32.9 Major depressive disorder, single episode, unspecified; E66.9 Obesity, unspecified; E83.39 Other disorders of phosphorus metabolism; E87.6 Hypokalemia; E78.5 Hyperlipidemia, unspecified; I10 Essential (primary) hypertension; Z68.32 Body mass index [BMI] 32.0-32.9, adult; Z79.891 Long term (current) use of opiate analgesic; Z79.52 Long term (current) use of systemic steroids; Z95.0 Presence of cardiac pacemaker; Z85.038 Personal history of other malignant neoplasm of large intestine; Z80.0 Family history of malignant neoplasm of digestive organs
CPT/HCPCS: 36140; 36415; 71045; 71275; 80048; 80053; 80061; 83735; 83874; 83880; 84100; 84145; 84484; 85025; 85610; 85730; 87081; 93005; 93041; 93306; 93312; 93320; 93325; 93458; 94760; 94761; 96361; 96372; 96374; 96375

== ENCOUNTER 2020-12-13 10:43 | Emergency (ER) | payer BC ==
[~2020-12-13] VITALS: Ht 162 cm; Wt 84.0 kg
[~2020-12-13 10:43] MED LIST changes: +DEXL60CA PO; +ENOX30DI4 IJ; +FLUT16SP22 NSEACH; +LEVO100T7 PO; +OXYC5TAB PO; +SOTA80TA62 PO; +SULF1TAB35 PO
[2020-12-13] MEDS ORDERED: ONDANSETRON 4 MG/2 ML (SDV) Z0FRAN IVP ONE (11:15)
[2020-12-13] MEDS ORDERED: fentaNYL INJ 100 MCG/2 ML AMP IVP ONE (11:15)
[2020-12-13 11:17] LABS: BASOPHILS % (AUTO) 1 % (0-10); EOSINOPHILS # (AUTO) 0.2 10^3/uL (0.0-0.3); EOSINOPHILS % (AUTO) 2 % (0-10); HEMATOCRIT 37 % (35-52); HEMOGLOBIN 11.9 g/dL (11.5-16.0); LYMPHOCYTES # (AUTO) 1.8 10^3/uL (1.0-4.0); LYMPHOCYTES % (AUTO) 23 % (12-44); MEAN CORPUSCULAR HEMOGLOBIN 29 pg (25-34); MEAN CORPUSCULAR HGB CONC 33 g/dL (32-36); MEAN CORPUSCULAR VOLUME 89 fL (80-99); MEAN PLATELET VOLUME 10.8 fL (9.0-12.2); MONOCYTES # (AUTO) 0.6 10^3/uL (0.0-1.0); MONOCYTES % (AUTO) 7 % (0-12); NEUTROPHILS # (AUTO) 5.3 10^3/uL (1.8-7.8); NEUTROPHILS % (AUTO) 66 % (42-75); PLATELET COUNT 447 10^3/uL (130-400)
[2020-12-13 11:34] LABS: CHLORIDE 102 MMOL/L (98-107); POTASSIUM 4.2 MMOL/L (3.6-5.0); SODIUM 137 MMOL/L (135-145)
[2020-12-13 11:35] LABS: CALCIUM 10.1 MG/DL (8.5-10.1); GLUCOSE 93 MG/DL (70-105)
[2020-12-13 11:37] LABS: CARBON DIOXIDE 20 MMOL/L (21-32)
[2020-12-13 11:39] LABS: CREATININE SERUM 0.78 MG/DL (0.60-1.30); GFR ESTIMATED > 60
[2020-12-13 11:40] LABS: BUN/CREATININE RATIO 9
[2020-12-13] MEDS ORDERED: NS IV 500 ML 500 ML IV SCH (11:45)
--- NOTE | 2020-12-13 12:09 | ED Cardiac General ---
History of Present Illness General Chief Complaint: Chest Pain Stated Complaint: DIZZINESS, KRAFT, Nursing Triage Note: PT CO OF CHEST PAIN, KRAFT, DIZZINESS AND BEING CLAMMY, PT HAD NON-STEMI ON 12/03. PT ALSO HAD HIATAL HERNIA REPAIR ON 11/30. PT HAS PACEMAKER AND STATES FEELS LIKE WAS KICKED IN CHEST LAST NIGHT BY PACEMAKER History of Present Illness Date Seen by Provider: Dec 13, 2020 Time Seen by Provider: 10:46 Initial Comments Patient is a 55-year-old female who presents to the emergency department today with a chief complaint of left-sided chest pain, mild headache, dizziness and generally feeling unwell. Patient states that she is never fully recovered from her hiatal hernia surgery that happened about 2-1/2 weeks ago. Patient was seen in the emergency department by me on 12/03. She was diagnosed with an NSTEMI at that time. Patient underwent cardiac catheterization and was noted to have clean coronary arteries. She came in in SVT with rates up to 20 and settled do wn into an atrial fibrillation rhythm. According to [employer] after interrogation of her pacemaker today she has been in a normal sinus rhythm since that time. Patient denies any fevers or chills. She states she sometimes feels "cold". She has had some nausea. No diarrhea. She is having a hard time advancing her diet. She saw her surgeons that repaired her hiatal hernia last week and states that she has another appointment with them next Thursday. Patient states that she feels like she was "kicked" in the chest by her pacemaker last night. There is no evidence to support any type of malfunction of her pacemaker, she does not have a defibrillator. No other GI or complaints. All other review of systems reviewed and negative except as stated above. Timing/Duration: 24 hours Severity: mild Location: other (Left-sided) Activities at Onset: none Prior CP/Workup: cardiac cath NTG SL ANESTHETIST: No ASA po ANESTHETIST: No Associated Systoms: Chest Pain, Malaise, Nausea/Vomiting, Weakness Allergies and Home Medications Allergies Coded Allergies: Latex, Natural Rubber (Unverified Allergy, Intermediate, Shortness of Breath, 09/27/20) Home Medications Apixaban 5 Mg Tablet, 5 MG PO DAILY, (Reported) Dexlansoprazole 60 Mg , 60 MG PO DAILY, (Reported) Dicyclomine HCl 20 Mg Tablet, 20 MG PO Q6H Prescribed by: ANDREE BUTT on 12/13/20 1222 Fluticasone Propionate 16 Gm [place].susp, 1 [place] NSEACH BID PRN for CONGESTION, (Reported) Levothyroxine Sodium 100 Mcg Tablet, 100 MCG PO DAILY, (Reported) LAST FILLED 08-26-2020 #30/30 DAY SUPPLY Ondansetron 4 Mg Tab.rapdis, 4 MG PO Q6H PRN for NAUSEA/VOMITING-1ST LINE, (Reported) Ondansetron 4 Mg Tab.rapdis, 4 MG PO Q8H Prescribed by: ANDREE BUTT on 12/13/20 1222 Oxycodone HCl 5 Mg Tablet, 5-15 MG PO Q4H PRN for PAIN-SEVERE (8-10) TAKES 1 TO 3 (5MG) TABS Prescribed by: ANDERSON REA on 12/06/20 0941 Sotalol HCl 80 Mg Tablet, 40 MG PO BID, (Reported) TAKES OF A 40MG TAB Patient Home Medication List Home Medication List Reviewed: Yes Review of Systems Review of Systems Constitutional: see HPI EENTM: No Symptoms Reported Respiratory: No Symptoms Reported Cardiovascular: Chest Pain Gastrointestinal: Nausea, Poor Appetite Genitourinary: No Symptoms Reported Musculoskeletal: no symptoms reported Skin: no symptoms reported All Other Systems Reviewed Negative Unless Noted: Yes Past Ydgxels-Tgdgni-Ruszwh Hx Patient Social History Alcohol Use: Denies Use Number of Drinks Today: GG Alcohol Beverage of Choice: Whiskey Smoking Status: Never a Smoker 2nd Hand Smoke Exposure: No Recent Infectious Disease Expo: No Recent Hopitalizations: Yes Immunizations Up To Date Tetanus Booster (TDap): Less than 5yrs PED Vaccines UTD: Yes Date of Influenza Vaccine: May 04, 2020 Seasonal Allergies Seasonal Allergies: Yes Past Medical History Surgeries: Yes (DNC'S, LAPAROSCOPY, UVULA REMOVED, hernia repair) Appendectomy, Bladder Surgery, Gallbladder, Hysterectomy, Pacemaker, Tonsillectomy Cardiac: Yes (ABLATION, CHF) Atrial Fibrillation, Valvular Heart Disease Neurological: Yes Headaches /Migraines ASSET COORDINATOR History: Hysterectomy, 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, Menopausal Genitourinary: No (BLADDER SLING) Gastrointestinal: Yes Reina's Esophagus Musculoskeletal: Yes Chronic Back Pain Hypothyroidsim HEENT: No Cancer: Yes (PRE CANCER POLYPS) Colon Psychosocial: Yes Depression Integumentary: Yes Eczema, Psoriasis Blood Disorders: No Family Medical History Colon cancer Noncontributory Physical Exam Vital Signs Vital Signs - First Documented 12/13/20 10:50 Temp 36.5 Pulse 67 Resp 20 B/P (MAP) 132/91 (105) Pulse Ox 100 Capillary Refill : Less Than 3 Seconds Height, Weight, BMI Height: '" Weight: lbs. oz. kg; 32.00 BMI Method: General Appearance: No Apparent Distress, WD/WN HEENT: PERRL/EOMI Neck: Normal Inspection Respiratory: Lungs Clear, Normal Breath Sounds, No Accessory Muscle Use, No Respiratory Distress Cardiovascular: Regular Rate, Rhythm Gastrointestinal: Normal Bowel Sounds, Soft, Tenderness (Epigastrium and right upper quadrant) Extremity: Normal Inspection, Normal Range of Motion, Non Tender, No Calf Ten derness Neurologic/Psychiatric: Alert, Oriented x3, No Motor/Sensory Deficits, Normal Mood/Affect Skin: Normal Color, Warm/Dry Progress/Results/Core Measures Results/Orders Lab Results Laboratory Tests Test 12/13/20 11:03 Range/Units White Blood Count 8.0 4.3-11.0 10^3/uL Red Blood Count 4.10 3.80-5.11 10^6/uL Hemoglobin 11.9 11.5-16.0 g/dL Hematocrit 37 35-52 % Mean Corpuscular Volume 89 80-99 fL Mean Corpuscular Hemoglobin 29 25-34 pg Mean Corpuscular Hemoglobin Concent 33 32-36 g/dL Red Cell Distribution Width 14.6 H 10.0-14.5 % Platelet Count 447 H 130-400 10^3/uL Mean Platelet Volume 10.8 9.0-12.2 fL Immature Granulocyte % (Auto) 1 % Neutrophils (%) (Auto) 66 42-75 % Lymphocytes (%) (Auto) 23 12-44 % Monocytes (%) (Auto) 7 0-12 % Eosinophils (%) (Auto) 2 0-10 % Basophils (%) (Auto) 1 0-10 % Neutrophils # (Auto) 5.3 1.8-7.8 10^3/uL Lymphocytes # (Auto) 1.8 1.0-4.0 10^3/uL Monocytes # (Auto) 0.6 0.0-1.0 10^3/uL Eosinophils # (Auto) 0.2 0.0-0.3 10^3/uL Basophils # (Auto) 0.0 0.0-0.1 10^3/uL Immature Granulocyte # (Auto) 0.0 0.0-0.1 10^3/uL Sodium Level 137 135-145 MMOL/L Potassium Level 4.2 3.6-5.0 MMOL/L Chloride Level 102 98-107 MMOL/L Carbon Dioxide Level 20 L 21-32 MMOL/L Anion Gap 15 H 5-14 MMOL/L Blood Urea Nitrogen 7 7-18 MG/DL Creatinine 0.78 0.60-1.30 MG/DL Estimat Glomerular Filtration Rate > 60 BUN/Creatinine Ratio 9 Glucose Level 93 70-105 MG/DL Calcium Level 10.1 8.5-10.1 MG/DL My Orders Orders - ANDREE BUTT MD Cbc With Automated Diff (12/13/20 11:12) Basic Metabolic Panel (12/13/20 11:12) Chest 1 View, Ap/Pa Only (12/13/20 11:12) Fentanyl Inj (Sublimaze Injection) (12/13/20 11:15) Ondansetron Injection (Zofran Injectio (12/13/20 11:15) Ns Iv 500 Ml (Sodium Chloride 0.9%) (12/13/20 11:45) Medications Given in ED Current Medications Medications Dose Ordered Sig/Giselle Route Start Time Stop Time Status Last Admin Dose Admin Fentanyl Citrate 50 mcg ONCE ONCE IVP 12/13/20 11:15 12/13/20 11:16 DC 12/13/20 11:17 50 MCG Ondansetron HCl 4 mg ONCE ONCE IVP 12/13/20 11:15 12/13/20 11:16 DC 12/13/20 11:16 4 MG Vital Signs/I&O 12/13/20 10:50 Temp 36.5 Pulse 67 Resp 20 B/P (MAP) 132/91 (105) Pulse Ox 100 Blood Pressure Mean: 105 Progress Progress Note : Time: 12:17 Progress Note Patient is feeling better after medications here in the emergency department. Labs have been reviewed and are reassuring. Patient has been given half a liter of fluids for rehydration. She is concerned about the amount of discomfort she has in her epigastrium and chest when she takes deep breaths. I think this continues to be related to her postsurgical healing process after the hiatal hernia surgery 2-1/2 weeks ago. I have recommended that the patient keep any and all follow-ups with her surgeons. I recommended that she talk to Dr. Nunn's clinic about possibly becoming hypoxic at night. She states that she has had a sleep study in the past and did not demonstrate any hypoxia at that time however things may have changed at this point. She has not been hypoxic throughout her stay here in the emergency department. Her vital signs are stable and reassuring. Patient will be sent home to continue her pain medications. I am adding some Bentyl for abdominal cramps as well as refilling for Zofran for her. Initial ECG Impression Date: Dec 13, 2020 Initial ECG Impression Time: 10:47 Initial ECG Rate: 66 Initial ECG Rhythm: Normal Sinus Initial ECG Intervals PACED Initial ECG Impression: Nonspecific Changes Initial ECG Comparisson: Unchanged Comment Patient has inverted T waves in the inferior leads, lead III and aVF, also T wave inversion is noted with ST segment flattening in V3, V4, V5 Diagnostic Imaging Diagonstic Imaging: Xray Plain Films/CT/US/NM/MRI: chest Comments [facility]. [place], [place] NAME: OLESYA NEVES [facility] REC#: [id number] PT STATUS: REG ER : 1965 PHYSICIAN: ANDREE BUTT MD ADMIT DATE: 12/13/20/ER Draft Date of Exam:12/13/20 CHEST 1 VIEW, AP/PA ONLY Indication: Chest pain with headache and dizziness. Time of exam 11:53 AM Correlation is made prior chest 12/05/2020. The heart size is stable. There is a dual lead left subclavian cardiac pacemaker. Lungs appear to be fairly clear. There may be some mild atelectasis in left base. Right hemidiaphragm is slightly elevated. No infiltrate, effusion or pneumothorax is seen. IMPRESSION: Left basilar subsegmental atelectasis. No other significant abnormality is detected. Dictated on workstation # [id number] Dict: 12/13/20 1215 Trans: 12/13/20 1217 BANNER [id number] Interpreted by: CLAUDINE CHEN MD Electronically signed by: Departure Impression Primary Impression: Chest pain Qualified Codes: R07.1 - Chest pain on breathing Additional Impression: Abdominal pain Qualified Codes: R10.13 - Epigastric pain Disposition: 01 HOME, SELF-CARE Condition: Stable Departure-Patient Inst. Decision time for Depature: 12:20 Referrals: JIMY NUNN MD (PCP/Family) Primary Care Physician Patient Instructions: Abdominal Pain, Adult ED Add. Discharge Instructions: Continue to take your pain medications as directed. I have also sent a prescription for Bentyl which is a pain medicine for your abdomen. Take this every 6 hours as needed for abdominal cramping/pain. I have sent a prescription for Zofran for nausea to your pharmacy as well. Please keep your follow-up appointments with your surgeon for postoperative checks. Come back to the emergency room for any new, concerning or emergent complaints. Scripts Dicyclomine HCl (Dicyclomine HCl) 20 Mg Tablet 20 MG PO Q6H for abdominal pain, #30 TAB Prov: ANDREE BUTT MD 12/13/20 Ondansetron (Ondansetron Odt) 4 Mg Tab.rapdis 4 MG PO Q8H for nausea, #20 TAB Prov: ANDREE BUTT MD 12/13/20 ANDREE BUTT MD Dec 13, 2020 12:09
--- NOTE | 2020-12-13 12:17 | Diagnostic Imaging Report ---
Indication: Chest pain with headache and dizziness. Time of exam 11:53 AM Correlation is made prior chest 12/05/2020. The heart size is stable. There is a dual lead left subclavian cardiac pacemaker. Lungs appear to be fairly clear. There may be some mild atelectasis in left base. Right hemidiaphragm is slightly elevated. No infiltrate, effusion or pneumothorax is seen. IMPRESSION: Left basilar subsegmental atelectasis. No other significant abnormality is detected. Dictated by: Dictated on workstation # [id number]
[2020-12-13] MEDS ORDERED: DICY20TA10 PO (12:22)
[2020-12-13] MEDS ORDERED: ONDA4TAB11 PO (12:22)
[2020-12-13 13:25] VITALS: BP 100/75
== END 2020-12-13 13:26 | disposition home or self-care (01) ==
LOC: EDUNIT# 10:43 → ER 10:45
DX: R07.9 Chest pain, unspecified (principal); R10.13 Epigastric pain; E03.9 Hypothyroidism, unspecified; I48.91 Unspecified atrial fibrillation; Z91.040 Latex allergy status; Z79.01 Long term (current) use of anticoagulants; Z79.890 Hormone replacement therapy; Z79.899 Other long term (current) drug therapy
CPT/HCPCS: 36415; 71045; 80048; 85025; 93005

== ENCOUNTER 2020-12-15 12:07 | Emergency (ER) | payer BC ==
[~2020-12-15] VITALS: Ht 162.5 cm; Wt 84.0 kg
[~2020-12-15 12:07] MED LIST changes: +DICY20TA10 PO
[2020-12-15] MEDS ORDERED: NS IV 1000 ML 1,000 ML IV SCH (13:15)
[2020-12-15 13:23] LABS: BILIRUBIN,URINE 1+ (NEGATIVE); CLARITY,URINE CLOUDY; COLOR,URINE YELLOW; GLUCOSE, URINE (UA) NEGATIVE (NEGATIVE); KETONES,URINE TRACE (NEGATIVE); LEUKOCYTE ESTERASE ,URINE 2+ (NEGATIVE); NITRITE,URINE NEGATIVE (NEGATIVE); PH,URINE 5.5 (5-9); PROTEIN,URINE TRACE (NEGATIVE)
--- NOTE | 2020-12-15 13:29 | ED General ---
General Chief Complaint: General Problems/Pain Stated Complaint: LOW BP 90/50, DIZZY Nursing Triage Note: PT FEELING LIGHT HEADED/ DIZZY AND HH NURSE SUGGESTED COMING TO ER FOR LOW BP TODAY. BP AT HOME 90/50. HIATAL HERNIA SUGERY 2 WEEKS AGO Nursing Sepsis Screen: No Definite Risk Source of Information: Patient Exam Limitations: No Limitations (PIERRE JOSEPH APRN) History of Present Illness Date Seen by Provider: Dec 15, 2020 Time Seen by Provider: 13:27 Initial Comments To ER with reports of lightheadedness dizziness and hypotension as noted by her home health nurse today who referred her to the emergency room. Patient had hiatal hernia done 2 weeks ago. This was done at the [facility]. Home health checked on her today and found her to be hypotensive at 90/50. She was here 2 days ago for epigastric abdominal pain. Timing/Duration: 1-2 Days Severity: Moderate Associated Systoms: Denies Symptoms (PIERRE JOSEPH APRN) Allergies and Home Medications Allergies Coded Allergies: Latex, Natural Rubber (Unverified Allergy, Intermediate, Shortness of Breath, 09/27/20) Home Medications Apixaban 5 Mg Tablet, 5 MG PO DAILY, (Reported) Dexlansoprazole 60 Mg , 60 MG PO DAILY, (Reported) Dicyclomine HCl 20 Mg Tablet, 20 MG PO Q6H Prescribed by: ANDREE BUTT on 12/13/20 1222 Fluticasone Propionate 16 Gm [place].susp, 1 SPRAY NSEACH BID PRN for CONGESTION, (Reported) Levothyroxine Sodium 100 Mcg Tablet, 100 MCG PO DAILY, (Reported) LAST FILLED 08-26-2020 #30/30 DAY SUPPLY Ondansetron 4 Mg Tab.rapdis, 4 MG PO Q6H PRN for NAUSEA/VOMITING-1ST LINE, (Reported) Ondansetron 4 Mg Tab.rapdis, 4 MG PO Q8H Prescribed by: ANDREE BUTT on 12/13/20 1222 Oxycodone HCl 5 Mg Tablet, 5-15 MG PO Q4H PRN for PAIN-SEVERE (8-10) TAKES 1 TO 3 (5MG) TABS Prescribed by: ANDERSON REA on 12/06/20 0941 Sotalol HCl 80 Mg Tablet, 40 MG PO BID, (Reported) TAKES OF A 40MG TAB Patient Home Medication List Home Medication List Reviewed: Yes (PIERRE JOSEPH APRN) Review of Systems Review of Systems Constitutional: see HPI EENTM: see HPI Respiratory: no symptoms reported Cardiovascular: no symptoms reported Genitourinary: no symptoms reported Musculoskeletal: no symptoms reported Skin: no symptoms reported Psychiatric/Neurological: No Symptoms Reported Hematologic/Lymphatic: No Symptoms Reported (PIERRE JOSEPH APRN) Past Tllrdfi-Hhwiwi-Etdovn Hx Patient Social History Alcohol Use: Denies Use Number of Drinks Today: GG Alcohol Beverage of Choice: Whiskey 2nd Hand Smoke Exposure: No Recent Infectious Disease Expo: No Recent Hopitalizations: Yes (PIERRE JOSEPH APRN) Immunizations Up To Date Tetanus Booster (TDap): Less than 5yrs PED Vaccines UTD: Yes Date of Influenza Vaccine: May 04, 2020 (PIERRE JOSEPH APRN) Seasonal Allergies Seasonal Allergies: Yes (PIERRE JOSEPH APRN) Past Medical History Surgeries: Yes (DNC'S, LAPAROSCOPY, UVULA REMOVED, hernia repair) Appendectomy, Bladder Surgery, Gallbladder, Hysterectomy, Pacemaker, Tonsillectomy Cardiac: Yes (ABLATION, CHF) Atrial Fibrillation, Valvular Heart Disease Neurological: Yes Headaches /Migraines 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, 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, 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 Genitourinary: No (BLADDER SLING) Gastrointestinal: Yes Reina's Esophagus Musculoskeletal: Yes Chronic Back Pain Hypothyroidsim HEENT: No Cancer: Yes (PRE CANCER POLYPS) Colon Psychosocial: Yes Depression Integumentary: Yes Eczema, Psoriasis Blood Disorders: No (PIERRE JOSEPH APRN) Family Medical History Colon cancer Noncontributory (PIERRE JOSEPH APRN) Physical Exam Vital Signs Vital Signs - First Documented 12/15/20 12/15/20 13:03 15:24 Temp 36.7 Pulse 71 Resp 18 B/P (MAP) 108/70 (83) Pulse Ox 98 (KINGSLEY CURTIS MD) Vital Signs Capillary Refill : Less Than 3 Seconds (PIERRE JOSEPH APRN) Height, Weight, BMI Height: '" Weight: lbs. oz. kg; 31.00 BMI Method: General Appearance: No Apparent Distress, WD/WN, Other (Alert and oriented no distress. Initial blood pressure 108/70, second blood pressure was 119/73. Heart rate in the 60s.) Eyes: Bilateral Eye Normal Inspection, Bilateral Eye PERRL, Bilateral Eye EOMI Neck: Full Range of Motion, Normal Inspection Respiratory: Lungs Clear, Normal Breath Sounds, No Accessory Muscle Use, No Respiratory Distress Cardiovascular: Regular Rate, Rhythm, Normal Peripheral Pulses Extremity: Normal Capillary Refill, Normal Inspection Neurologic/Psychiatric: Alert, Oriented x3 (PIERRE JOSEPH APRN) Progress/Results/Core Measures Suspected Sepsis Recent Fever Within 48 Hours: No Infection Criteria Present: None New/Unexplained Altered Menta: No Sepsis Screen: No Definite Risk SIRS Temperature: Pulse: 71 Respiratory Rate: Laboratory Tests 12/15/20 13:30: White Blood Count 7.4 Blood Pressure 108 /70 Mean: 83 Laboratory Tests 12/15/20 13:30: Creatinine 0.82, Platelet Count 424H, Total Bilirubin 0.8 (PIERRE JOSEPH APRN) Results/Orders Lab Results Laboratory Tests Test 12/15/20 13:17 12/15/20 13:30 Range/Units Urine Color YELLOW Urine Clarity CLOUDY Urine pH 5.5 5-9 Urine Specific [place] 1.025 H 1.016-1.022 Urine Protein TRACE H NEGATIVE Urine Glucose (UA) NEGATIVE NEGATIVE Urine Ketones TRACE H NEGATIVE Urine Nitrite NEGATIVE NEGATIVE Urine Bilirubin 1+ H NEGATIVE Urine Urobilinogen 1.0 < = 1.0 MG/DL Urine Leukocyte Esterase 2+ H NEGATIVE Urine RBC (Auto) 1+ H NEGATIVE Urine RBC 0-2 /HPF Urine WBC 5-10 H /HPF Urine Squamous Epithelial Cells 0-2 /HPF Urine Renal Epithelial Cells 0-2 /HPF Urine Crystals NONE /LPF Urine Bacteria FEW H /HPF Urine Casts NONE /LPF Urine Mucus NEGATIVE /LPF Urine Culture Indicated YES White Blood Count 7.4 4.3-11.0 10^3/uL Red Blood Count 3.91 3.80-5.11 10^6/uL Hemoglobin 11.2 L 11.5-16.0 g/dL Hematocrit 35 35-52 % Mean Corpuscular Volume 89 80-99 fL Mean Corpuscular Hemoglobin 29 25-34 pg Mean Corpuscular Hemoglobin Concent 32 32-36 g/dL Red Cell Distribution Width 14.3 10.0-14.5 % Platelet Count 424 H 130-400 10^3/uL Mean Platelet Volume 10.7 9.0-12.2 fL Immature Granulocyte % (Auto) 0 % Neutrophils (%) (Auto) 60 42-75 % Lymphocytes (%) (Auto) 27 12-44 % Monocytes (%) (Auto) 10 0-12 % Eosinophils (%) (Auto) 2 0-10 % Basophils (%) (Auto) 1 0-10 % Neutrophils # (Auto) 4.5 1.8-7.8 10^3/uL Lymphocytes # (Auto) 2.0 1.0-4.0 10^3/uL Monocytes # (Auto) 0.7 0.0-1.0 10^3/uL Eosinophils # (Auto) 0.2 0.0-0.3 10^3/uL Basophils # (Auto) 0.0 0.0-0.1 10^3/uL Immature Granulocyte # (Auto) 0.0 0.0-0.1 10^3/uL Sodium Level 139 135-145 MMOL/L Potassium Level 4.2 3.6-5.0 MMOL/L Chloride Level 103 98-107 MMOL/L Carbon Dioxide Level 23 21-32 MMOL/L Anion Gap 13 5-14 MMOL/L Blood Urea Nitrogen 7 7-18 MG/DL Creatinine 0.82 0.60-1.30 MG/DL Estimat Glomerular Filtration Rate > 60 BUN/Creatinine Ratio 9 Glucose Level 89 70-105 MG/DL Calcium Level 9.6 8.5-10.1 MG/DL Corrected Calcium 9.6 8.5-10.1 MG/DL Total Bilirubin 0.8 0.1-1.0 MG/DL Aspartate Amino Transf (AST/SGOT) 23 5-34 U/L Alanine Aminotransferase (ALT/SGPT) 17 0-55 U/L Alkaline Phosphatase 78 40-136 U/L Troponin I < 0.028 <0.028 NG/ML Total Protein 7.6 6.4-8.2 GM/DL Albumin 4.0 3.2-4.5 GM/DL (KINGSLEY CURTIS MD) Medications Given in ED Current Medications Medications Dose Ordered Sig/Giselle Route Start Time Stop Time Status Last Admin Dose Admin Al Hydrox/Mg Hydrox/Simethicone 30 ml ONCE ONCE PO 12/15/20 13:30 12/15/20 13:31 DC 12/15/20 13:43 30 ML Ceftriaxone Sodium 1000 mg/ Sterile Water 10 ml @ 200 mls/hr ONCE ONCE IV 12/15/20 14:45 12/15/20 14:47 DC 12/15/20 14:46 200 MLS/HR Fentanyl Citrate 50 mcg ONCE ONCE IVP 12/15/20 13:30 12/15/20 13:31 DC 12/15/20 13:43 50 MCG Lidocaine HCl 10 ml ONCE ONCE PO 12/15/20 13:30 12/15/20 13:31 DC 12/15/20 13:43 10 ML Ondansetron HCl 4 mg ONCE ONCE IVP 12/15/20 13:30 12/15/20 13:31 DC 12/15/20 13:43 4 MG (KINGSLEY CURTIS MD) Vital Signs/I&O 12/15/20 12/15/20 13:03 15:24 Temp 36.7 36.7 Pulse 71 71 Resp 18 B/P (MAP) 108/70 (83) 104/59 (83) Pulse Ox 98 (KINGSLEY CURTIS MD) Vital Signs/I&O Capillary Refill : Less Than 3 Seconds (PIERRE JOSEPH APRN) Blood Pressure Mean: 83 Progress Note : Progress Note I was physically present in the emergency department as attending physician during the care of this patient. I was not directly involved in this patient's care. (KINGSLEY CURTIS MD) Diagnostic Imaging Diagonstic Imaging: Xray Plain Films/CT/US/NM/MRI: chest Comments NAME: OLESYA NEVES [facility] REC#: [id number] PT STATUS: REG ER : 1965 PHYSICIAN: PIERRE JOSEPH APRN ADMIT DATE: 12/15/20/ER Draft Date of Exam:12/15/20 CHEST 1 VIEW, AP/PA ONLY INDICATION: Dyspnea with hypotension. COMPARISON: 12/13/2020. DISCUSSION: Single portable upright view of the chest was obtained. Stable normal heart size. Left-sided pacemaker is stable. No failure. No consolidation, pleural fluid, or pneumothorax. No osseous abnormality. IMPRESSION: 1. Negative portable chest. Dictated on workstation # [id number] Dict: 12/15/20 1345 Trans: 12/15/20 1351 [facility] [id number] Interpreted by: CINDA HAWKINS MD Electronically signed by: (PIERRE JOSEPH APRN) Departure Communication (Admissions) EKG shows a atrial paced rhythm without ectopy normal intervals no ST segment changes QT Is normal at 414 ms. 1434-reviewed her cardiac catheterization from the end of November. She had clear coronaries. Blood pressure has dropped again just a bit down to 96/58. Heart rate 64. It looks like they chose sotalol because she failed to have a response to Cardizem. She is only on 40 mg of sotalol twice a day, I hate to remove her from this given her history of tachyarrhythmias. I will discharged home follow- up with cardiology on Thursday. 1515-blood pressure has consistently been in the 96/60 range after she has settled into bed. I spoke with Dr. Mcconnell on-call for cardiology. States that we could stop the sotalol 40 mg twice a day and replace it with digoxin but that would be a almeida because we know that the sotalol controls her rhythm and digoxin might not. Discussed this with the patient, we have elected to go ahead and continue the sotalol throughout the weekend given that her blood pressure is only mildly low, follow-up with primary live out nanny Dr. Ruvalcaba on Thursday for reevaluation and discussion of symptoms. NAME: OLESYA NEVES [facility] REC#: [id number] PT STATUS: REG ER : 1965 PHYSICIAN: PIERRE JOSEPH APRN ADMIT DATE: 12/15/20/ER Draft Date of Exam:12/15/20 CHEST 1 VIEW, AP/PA ONLY INDICATION: Dyspnea with hypotension. COMPARISON: 12/13/2020. DISCUSSION: Single portable upright view of the chest was obtained. Stable normal heart size. Left-sided pacemaker is stable. No failure. No consolidation, pleural fluid, or pneumothorax. No osseous abnormality. IMPRESSION: 1. Negative portable chest. Dictated on workstation # [id number] Dict: 12/15/20 1345 Trans: 12/15/20 1351 [facility] [id number] Interpreted by: CINDA HAWKINS MD (PIERRE JOSEPH APRN) Impression Primary Impression: Hypotension Disposition: 01 HOME, SELF-CARE Condition: Stable Departure-Patient Inst. Decision time for Depature: 14:43 (PIERRE JOSEPH APRN) Referrals: JIMY BENNETT MD (PCP/Family) Primary Care Physician Patient Instructions: Low Blood Pressure Add. Discharge Instructions: Call Dr. Grewal on Thursday to make an appointment to be seen. Continue current medications. All discharge instructions reviewed with patient and/or family. Voiced unders tanding. Copy Copies To 1: ERIKA RUVALCABA MD, PETER J APRN Dec 15, 2020 13:29 KINGSLEY CURTIS MD Dec 15, 2020 15:38
[2020-12-15] MEDS ORDERED: ANTACID SUSP 30 ML UDC (MYLANTA) PO ONE (13:30)
[2020-12-15] MEDS ORDERED: ONDANSETRON 4 MG/2 ML (SDV) Z0FRAN IVP ONE (13:30)
[2020-12-15] MEDS ORDERED: LIDOCAINE 2% VISCOUS 15 ML UDC PO ONE (13:30)
[2020-12-15] MEDS ORDERED: fentaNYL INJ 100 MCG/2 ML AMP IVP ONE (13:30)
[2020-12-15 13:42] LABS: BASOPHILS % (AUTO) 1 % (0-10); EOSINOPHILS # (AUTO) 0.2 10^3/uL (0.0-0.3); EOSINOPHILS % (AUTO) 2 % (0-10); HEMATOCRIT 35 % (35-52); HEMOGLOBIN 11.2 g/dL (11.5-16.0); LYMPHOCYTES % (AUTO) 27 % (12-44); MEAN CORPUSCULAR HEMOGLOBIN 29 pg (25-34); MEAN CORPUSCULAR HGB CONC 32 g/dL (32-36); MEAN CORPUSCULAR VOLUME 89 fL (80-99); MEAN PLATELET VOLUME 10.7 fL (9.0-12.2); MONOCYTES # (AUTO) 0.7 10^3/uL (0.0-1.0); MONOCYTES % (AUTO) 10 % (0-12); NEUTROPHILS # (AUTO) 4.5 10^3/uL (1.8-7.8); NEUTROPHILS % (AUTO) 60 % (42-75); PLATELET COUNT 424 10^3/uL (130-400); WHITE BLOOD COUNT 7.4 10^3/uL (4.3-11.0)
[2020-12-15 13:44] LABS: RBC,URINE 0-2 /HPF
[2020-12-15 13:45] LABS: BACTERIA,URINE FEW /HPF; RENAL EPITHELIAL CELLS,URINE 0-2 /HPF; SQUAMOUS EPITHELIAL CELL,UR 0-2 /HPF
--- NOTE | 2020-12-15 13:53 | Diagnostic Imaging Report ---
INDICATION: Dyspnea with hypotension. COMPARISON: 12/13/2020. DISCUSSION: Single portable upright view of the chest was obtained. Stable normal heart size. Left-sided pacemaker is stable. No failure. No consolidation, pleural fluid, or pneumothorax. No osseous abnormality. IMPRESSION: 1. Negative portable chest. Dictated by: Dictated on workstation # [id number]
[2020-12-15 14:00] LABS: CHLORIDE 103 MMOL/L (98-107); POTASSIUM 4.2 MMOL/L (3.6-5.0); SODIUM 139 MMOL/L (135-145)
[2020-12-15 14:01] LABS: CALCIUM 9.6 MG/DL (8.5-10.1)
[2020-12-15 14:02] LABS: GLUCOSE 89 MG/DL (70-105); TOTAL PROTEIN 7.6 GM/DL (6.4-8.2)
[2020-12-15 14:03] LABS: CARBON DIOXIDE 23 MMOL/L (21-32)
[2020-12-15 14:04] LABS: BILIRUBIN,TOTAL 0.8 MG/DL (0.1-1.0)
[2020-12-15 14:06] LABS: ALKALINE PHOSPHATASE 78 U/L (40-136); CREATININE SERUM 0.82 MG/DL (0.60-1.30); GFR ESTIMATED > 60
[2020-12-15 14:07] LABS: BUN/CREATININE RATIO 9
[2020-12-15 14:09] LABS: ALANINE AMINOTRANSFERASE 17 U/L (0-55)
[2020-12-15] MEDS ORDERED: cefTRIAXone FOR IV USE 1,000 MG in WATER (STERILE) FOR INJECTION 10 ML IV ONE (14:45)
[2020-12-15 15:24] VITALS: BP 104/59
== END 2020-12-15 15:25 | disposition home or self-care (01) ==
LOC: EDUNIT# 12:07 → ER 12:09
DX: I95.9 Hypotension, unspecified (principal); I50.9 Heart failure, unspecified; I48.91 Unspecified atrial fibrillation; G89.29 Other chronic pain; M54.9 Dorsalgia, unspecified; E03.9 Hypothyroidism, unspecified; Z79.01 Long term (current) use of anticoagulants; Z79.890 Hormone replacement therapy; Z79.891 Long term (current) use of opiate analgesic
CPT/HCPCS: 36415; 71045; 80053; 81000; 84484; 85025; 87088; 93005

== ENCOUNTER → 2021-01-10 | Outpatient (CLI) | payer BC ==
--- NOTE | 2021-01-10 17:23 | Diagnostic Imaging Report ---
PROCEDURE: CT abdomen and pelvis with contrast. TECHNIQUE: Multiple contiguous axial images were obtained through the abdomen and pelvis after administration of intravenous contrast. Auto Exposure Controls were utilized during the CT exam to meet ALARA standards for radiation dose reduction. All CT scans use one or more of the following dose optimizing techniques: automated exposure control, MA and/or KvP adjustment based on patient size and exam type or iterative reconstruction. INDICATION: Epigastric pain. COMPARISON: 12/03/2020. FINDINGS: There is mixed groundglass and interstitial density in the left lung base. This region was involved with infiltrate on the previous study and may represent residual scarring. Otherwise, below the diaphragm, there is mild low density in the liver, suggestive of fatty infiltration. Gallbladder is absent. There is moderate amount of particulate matter within the stomach with mild hiatal hernia noted. No splenic, pancreatic, or adrenal gland abnormality is detected. Kidneys are also unremarkable in appearance. No free fluid is seen within the abdomen or pelvis. There is no evidence of organized fluid collection. Abdominal aorta is of normal caliber. IMPRESSION: Hepatic steatosis without evidence of acute abnormality seen within the abdomen or pelvis. Dictated by: Dictated on workstation # [id number]
== END ==
LOC: RAD 15:30
PROVIDERS: ATTEND Family Medicine
DX: K76.0 Fatty (change of) liver, not elsewhere classified (principal)
CPT/HCPCS: 74177

== ENCOUNTER 2021-01-16 08:32 | Emergency (ER) | payer BC ==
[~2021-01-16] VITALS: Ht 162 cm; Wt 81.6 kg
[2021-01-16] MEDS ORDERED: DICYCLOMINE 10 MG/ML (BENTYL) 2 ML AMP IM STA (09:36)
[2021-01-16 09:43] LABS: BASOPHILS % (AUTO) 0 % (0-10); EOSINOPHILS # (AUTO) 0.2 10^3/uL (0.0-0.3); EOSINOPHILS % (AUTO) 4 % (0-10); HEMATOCRIT 41 % (35-52); HEMOGLOBIN 13.2 g/dL (11.5-16.0); LYMPHOCYTES # (AUTO) 2.5 10^3/uL (1.0-4.0); LYMPHOCYTES % (AUTO) 42 % (12-44); MEAN CORPUSCULAR HEMOGLOBIN 29 pg (25-34); MEAN CORPUSCULAR HGB CONC 33 g/dL (32-36); MEAN CORPUSCULAR VOLUME 88 fL (80-99); MEAN PLATELET VOLUME 11.1 fL (9.0-12.2); MONOCYTES # (AUTO) 0.4 10^3/uL (0.0-1.0); MONOCYTES % (AUTO) 7 % (0-12); NEUTROPHILS # (AUTO) 2.8 10^3/uL (1.8-7.8); NEUTROPHILS % (AUTO) 47 % (42-75); PLATELET COUNT 254 10^3/uL (130-400); WHITE BLOOD COUNT 6.1 10^3/uL (4.3-11.0)
[2021-01-16 09:44] LABS: ALBUMIN 4.5 GM/DL (3.2-4.5)
[2021-01-16 09:45] LABS: CHLORIDE 107 MMOL/L (98-107); POTASSIUM 3.5 MMOL/L (3.6-5.0); SODIUM 143 MMOL/L (135-145)
[2021-01-16] MEDS ORDERED: KETOROLAC 30 MG/ML VIAL IVP ONE (09:45)
[2021-01-16 09:46] LABS: CALCIUM 9.8 MG/DL (8.5-10.1)
[2021-01-16 09:47] LABS: GLUCOSE 100 MG/DL (70-105)
[2021-01-16 09:48] LABS: CARBON DIOXIDE 27 MMOL/L (21-32)
[2021-01-16 09:49] LABS: BILIRUBIN,TOTAL 0.4 MG/DL (0.1-1.0)
[2021-01-16 09:50] LABS: ALKALINE PHOSPHATASE 93 U/L (40-136); CREATININE SERUM 0.76 MG/DL (0.60-1.30); GFR ESTIMATED > 60
[2021-01-16 09:51] LABS: BUN/CREATININE RATIO 9
[2021-01-16 09:53] LABS: ALANINE AMINOTRANSFERASE 30 U/L (0-55)
[2021-01-16 09:54] LABS: LIPASE 15 U/L (8-78)
--- NOTE | 2021-01-16 11:16 | ED Abdominal Pain ---
General Chief Complaint: Chest Pain Stated Complaint: ABD,BACK PAIN, CP,S/P HIATAL HERNIA SX 7WKS AGO Nursing Triage Note: PT CO OF CHEST PAIN AND ABD PAIN FOR 4 WEEKS WORSENING FROM 4/10 FOR APPROX 2 WEEKS,TODAY HAS GONE TO 7/10. PT HAS HX OF AFIB. PT HAD HIATAL HERNIA REPAIR 7 WEEKS AGO. PT STATES HAD CT W CONTRAST LAST WEEK. Source of Information: Patient Exam Limitations: No Limitations History of Present Illness Date Seen by Provider: Jan 16, 2021 Time Seen by Provider: 09:20 Initial Comments Patient is a 55-year-old female who presents to the emergency department today with a chief complaint of epigastric abdominal pain and intermittent chest discomfort off and on for the last 4 weeks. It has been happening to her since she had a hiatal hernia repair at [facility] 7 weeks ago. Patient states that her pain today worsened to a "7" out of 10. She has not taken anything for the pain because she does not want to "mask" the symptoms she wants to know what is wrong with her. Patient has a follow-up appointment with her GI specialist at on the of this month. She denies fevers or chills. She has had nausea without vomiting. She states that in the last 24 hours the pain is worse. She indicates epigastric and left upper quadrant abdominal pain. No diarrhea, black stools. She states she has had a little bit of blood in her stools but she thinks that is from straining. No urinary complaints. She would like a referral to Dr. Valles as he used to be her "GI doctor". Patient tells me that she had a CT with contrast last week and has not been able to get the results yet. All other review of systems reviewed and negative except as stated above. Timing/Duration: 1-2 Days Severity/Quality: Cramping Location: Epigastric Radiation: No Radiation Activities at Onset: None Associated Symptoms: Nausea/Vomiting Allergies and Home Medications Allergies Coded Allergies: Latex, Natural Rubber (Unverified Allergy, Intermediate, Shortness of Breath, 09/27/20) Home Medications Apixaban 5 Mg Tablet, 5 MG PO DAILY, (Reported) Dexlansoprazole 60 Mg Can.bp, 60 MG PO DAILY, (Reported) Dicyclomine HCl 20 Mg Tablet, 20 MG PO Q6H Prescribed by: ANDREE BUTT on 12/13/20 1222 Fluticasone Propionate 16 Gm [place].susp, 1 SPRAY NSEACH BID PRN for CONGESTION, (Reported) Levothyroxine Sodium 100 Mcg Tablet, 100 MCG PO DAILY, (Reported) LAST FILLED 08-26-2020 #30/30 DAY SUPPLY Ondansetron 4 Mg Tab.rapdis, 4 MG PO Q6H PRN for NAUSEA/VOMITING-1ST LINE, (Reported) Ondansetron 4 Mg Tab.rapdis, 4 MG PO Q8H Prescribed by: ANDREE BUTT on 12/13/20 1222 Oxycodone HCl 5 Mg Tablet, 5-15 MG PO Q4H PRN for PAIN-SEVERE (8-10) TAKES 1 TO 3 (5MG) TABS Prescribed by: ANDERSON REA on 12/06/20 0941 Sotalol HCl 80 Mg Tablet, 40 MG PO BID, (Reported) TAKES OF A 40MG TAB Patient Home Medication List Home Medication List Reviewed: Yes Review of Systems Review of Systems Constitutional: see HPI EENTM: No Symptoms Reported Respiratory: No Symptoms Reported Cardiovascular: No Symptoms Reported Gastrointestinal: Abdominal Pain, Nausea, Poor Appetite Genitourinary: No Symptoms Reported Musculoskeletal: no symptoms reported Skin: no symptoms reported Psychiatric/Neurological: No Symptoms Reported All Other Systems Reviewed Negative Unless Noted: Yes Past Hdcsdql-Mlkbub-Cafacr Hx Patient Social History Tobacco Use?: No Substance use?: No Alcohol Use?: No Pt feels they are or have been: No Immunizations Up To Date Tetanus Booster (TDap): Less than 5yrs PED Vaccines UTD: Yes Seasonal Allergies Seasonal Allergies: Yes Past Medical History Surgeries: Yes (DNC'S, LAPAROSCOPY, UVULA REMOVED, hernia repair) Appendectomy, Bladder Surgery, Gallbladder, Hysterectomy, Pacemaker, Tonsillectomy Cardiac: Yes (ABLATION, CHF) Atrial Fibrillation, Valvular Heart Disease Neurological: Yes Headaches /Migraines 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 oz. kg; 31.00 BMI Method: General Appearance: WD/WN, no apparent distress HEENT: PERRL/EOMI Neck: normal inspection Respiratory: lungs clear, normal breath sounds, no respiratory distress, no accessory muscle use Cardiovascular: regular rate, rhythm Gastrointestinal: normal bowel sounds, soft, tenderness (Mild left upper quadrant tenderness and epigastric tenderness to palpation without rebound or guarding. Normal bowel sounds are auscultated) Extremities: non-tender, normal inspection, no pedal edema, no calf tenderness Neurologic/Psychiatric: alert, normal mood/affect, oriented x 3 Skin: normal color, warm/dry Progress/Results/Core Measures Results/Orders Lab Results Laboratory Tests Test 01/16/21 08:55 Range/Units White Blood Count 6.1 4.3-11.0 10^3/uL Red Blood Count 4.61 3.80-5.11 10^6/uL Hemoglobin 13.2 11.5-16.0 g/dL Hematocrit 41 35-52 % Mean Corpuscular Volume 88 80-99 fL Mean Corpuscular Hemoglobin 29 25-34 pg Mean Corpuscular Hemoglobin Concent 33 32-36 g/dL Red Cell Distribution Width 13.7 10.0-14.5 % Platelet Count 254 130-400 10^3/uL Mean Platelet Volume 11.1 9.0-12.2 fL Immature Granulocyte % (Auto) 0 % Neutrophils (%) (Auto) 47 42-75 % Lymphocytes (%) (Auto) 42 12-44 % Monocytes (%) (Auto) 7 0-12 % Eosinophils (%) (Auto) 4 0-10 % Basophils (%) (Auto) 0 0-10 % Neutrophils # (Auto) 2.8 1.8-7.8 10^3/uL Lymphocytes # (Auto) 2.5 1.0-4.0 10^3/uL Monocytes # (Auto) 0.4 0.0-1.0 10^3/uL Eosinophils # (Auto) 0.2 0.0-0.3 10^3/uL Basophils # (Auto) 0.0 0.0-0.1 10^3/uL Immature Granulocyte # (Auto) 0.0 0.0-0.1 10^3/uL Sodium Level 143 135-145 MMOL/L Potassium Level 3.5 L 3.6-5.0 MMOL/L Chloride Level 107 98-107 MMOL/L Carbon Dioxide Level 27 21-32 MMOL/L Anion Gap 9 5-14 MMOL/L Blood Urea Nitrogen 7 7-18 MG/DL Creatinine 0.76 0.60-1.30 MG/DL Estimat Glomerular Filtration Rate > 60 BUN/Creatinine Ratio 9 Glucose Level 100 70-105 MG/DL Calcium Level 9.8 8.5-10.1 MG/DL Corrected Calcium 9.4 8.5-10.1 MG/DL Total Bilirubin 0.4 0.1-1.0 MG/DL Aspartate Amino Transf (AST/SGOT) 23 5-34 U/L Alanine Aminotransferase (ALT/SGPT) 30 0-55 U/L Alkaline Phosphatase 93 40-136 U/L Total Protein 8.0 6.4-8.2 GM/DL Albumin 4.5 3.2-4.5 GM/DL Lipase 15 8-78 U/L My Orders Orders - ANDREE BUTT MD Ed Iv/Invasive Line Start (01/16/21 09:36) Cbc With Automated Diff (01/16/21 09:36) Comprehensive Metabolic Panel (01/16/21 09:36) Lipase (01/16/21 09:36) Dicyclomine Injection (Bentyl Injection) (01/16/21 09:36) Ketorolac Injection (Toradol Injection) (01/16/21 09:45) Hydrocodone/Apap 7.5/325 Tab (Lortab 7. (01/16/21 11:30) Medications Given in ED Current Medications Medications Dose Ordered Sig/Giselle Route Start Time Stop Time Status Last Admin Dose Admin Ketorolac Tromethamine 15 mg ONCE ONCE IVP 01/16/21 09:45 01/16/21 09:46 DC 01/16/21 10:14 15 MG Vital Signs/I&O 01/16/21 01/16/21 08:45 08:45 Temp 36.6 Pulse 76 Resp 20 B/P (MAP) 159/98 (118) Pulse Ox 99 O2 Delivery Room Air Blood Pressure Mean: 118 Progress Progress Note : Time: 11:21 Progress Note Patient got a little relief with Bentyl and Toradol rates her pain a "6". We will give her a hydrocodone tablet prior to discharge. I have recommended again that the patient keep her follow-up and have close contact with her surgeon up at . She verbalized understanding. All questions are sought and answered. Patient is stable for discharge. Departure Impression Primary Impression: Abdominal pain Qualified Codes: R10.12 - Left upper quadrant pain Disposition: HOME, SELF-CARE Condition: Stable Departure-Patient Inst. Decision time for Depature: 11:22 Referrals: JIMY BENNETT MD (PCP) Primary Care Physician Patient Instructions: Abdominal Pain, Adult ED Add. Discharge Instructions: Follow a clear liquid diet today then slowly advance her diet as tolerated. Continue the medications that were prescribed by your GI specialist at . I have given you a prescription for pain pills you can take 1 every 6-8 hours as needed for severe pain. Otherwise Tylenol is appropriate for use every 4-6 hours. Return to the emergency room if you have worse pain in the setting of a fever over 100.4, vomiting or any other emergent concerning symptoms develop. Scripts Hydrocodone/Acetaminophen (Hydrocodone-Acetamin 5-325 mg) 1 Each Tablet 1 TAB PO Q6H PRN for PAIN-MODERATE (5-7), #10 TAB Prov: ANDREE BUTT MD 01/16/21 ANDREE BUTT MD Jan 16, 2021 11:16
[2021-01-16] MEDS ORDERED: ACHD5005 PO (11:24)
[2021-01-16] MEDS ORDERED: HYDROcodone/APAP 7.5 MG/325 MG (LORTAB, LORCET PLUS) TABLET PO ONE (11:30)
[2021-01-16 11:40] VITALS: BP 168/100
== END 2021-01-16 11:40 | disposition home or self-care (01) ==
LOC: EDUNIT# 08:32 → ER 08:34
DX: R10.13 Epigastric pain (principal); I48.91 Unspecified atrial fibrillation; I50.9 Heart failure, unspecified; G89.29 Other chronic pain; M54.9 Dorsalgia, unspecified; E03.9 Hypothyroidism, unspecified; Z79.890 Hormone replacement therapy; Z79.01 Long term (current) use of anticoagulants; Z79.891 Long term (current) use of opiate analgesic; Z79.899 Other long term (current) drug therapy
CPT/HCPCS: 36415; 80053; 83690; 85025; 93005

== ENCOUNTER 2021-03-17 09:22 | Emergency (ER) | payer BC ==
[~2021-03-17] VITALS: Ht 162 cm; Wt 83.4 kg
[~2021-03-17 09:22] MED LIST changes: -SULF1TAB35 PO; +SULF1TAB38 PO
--- OUTSIDE RECORDS SUMMARY | 2021-03-17 09:27 | XMS REPORT | Encounter Summary ---
Author Author [facility] Organization [facility] Address Unknown Phone Unavailable Care Team Providers Care Finnish Rubber Name Role Phone Heriberto Nunn MD PCP Alan Jackson MD 100 Thania Ruvalcaba MD 100 Encounter Details Care Team Description [place] [address] [place] [address] 01/23/2021 Telephone Metabolic and Baria tric Care: [facility]: [address] [place] [address] Social History Date Tobacco Use Types Packs/Day Years Used Never Smoker Smokeless Tobacco: Never Used Comments Alcohol Use Standard Drinks/Week rarely last drink 01/2020 Yes 0 (1 standard drink = 0.6 o z pure alcohol) Alcohol Habits Answer Date Recorded How often do you have a drink containing alcohol? No t asked How many drinks containing alcohol do you have on No t asked a typical day when you are drinking? How often do you have six or more drinks on one Less than monthly 10/15/2020 occasion? Comment: rarely last drink 01/202010/17/2020 Sex Assigned at Date Recorded Female 11/07/2020 4:54 PM CDT documented as of this encounter Functional Status Date of Assessment Functional Status Response 11/29/2020 Does the patient have a hearing impairment: No documented as of this encounter Plan of Treatment Not on filedocumented as of this encounter Goals Goal Patient Associated Recent Progress Patient-Stat Aut hor Goal Type Problems ed? GOAL General On track (11/29/2020 No Silver montague, 11:20 AM CDT) JERMAN Jackson Note: Back to work and live with out pain documented as of this encounter Visit Diagnoses Not on filedocumented in this encounter Additional Health Concerns Assessment Noted Time A fall risk assessment has been completed for the pat ient 12/01/2020 9:34 AM CDT documented as of this encounter
--- OUTSIDE RECORDS SUMMARY | 2021-03-17 09:27 | XMS REPORT | Encounter Summary ---
Author Author [facility] Organization [facility] Address Unknown Phone Unavailable Care Team Providers Care Litigation Attorney Name Role Phone Heriberto Nunn MD PCP Alan Jackson MD 100 Thania Ruvalcaba MD 100 Reason for Visit * Reason Comments Nutrition Consultation * Consult, Test & Treat Referred By Contact Referred To Contact Status Reason Specialty Diagnoses / [place] [address] [place] [address] [place] [address] [place] [address] Authorized Specialty Services Nutrition / Diagnoses Required Bariatrics Status post laparoscopic Amna fundoplication Encounter Details Care Team Description [place] [address] [place] [address] [phone] 03/06/2021 Clinical Metabolic and Baria tric Support Care: [facility]: [address] [place] [phone] Social History Date Tobacco Use Types Packs/Day [...] PM CDT documented as of this encounter Last Filed Vital Signs Reading Time Taken Comments Vital Sign - - Blood Pressure - - Pulse - - Temperature - - Respiratory Rate - - Oxygen Saturation - - Inhaled Oxygen Concentration 80.7 kg (178 lb) 03/06/2021 1:00 PM CDT Weight 162.6 cm (5' 4.02") 03/06/2021 1:00 PM CDT Height 30.54 03/06/2021 1:00 PM CDT Body Mass Index documented in this encounter Functional Status Date of Assessment Functional Status Response 11/29/2020 Does the patient have a hearing impairment: No documented as of this encounter Progress Notes * Klarissa Collazo - 03/06/2021 1:00 PM CDT Clinical Nutrition Note Maria Fernanda Rondon is a 55 y.o. female with s/p laparoscopic recurrent paraeso phageal hernia repair with Acell mesh with modified Hill-Amna fundoplication. Spoke to patient over the phone today post-op follow-up diet eval. Nutrition Assessment of Patient: BMI Categories Adult: Obesity Class I: 30-34.9 Estimated Protein Needs: 60-80 Needs to promote: weight loss Weight 178-182lbs Wt Readings from Last 5 Encounters: 02/14/21 82.1 kg (181 lb) 01/18/21 81.6 kg (180 lb) 12/27/20 81.6 kg (180 lb) 12/07/20 89.5 kg (197 lb 4.8 oz) 11/29/20 88 kg (194 lb 0.1 oz) There is no height or weight on file to calculate BMI. Patient reports: Continued difficulty with food volume and texture. She is eating smaller meals a nd using lean ground meats with cooked veggies and potatoes. She previously was having vomiting and chest pain. Reports these symptoms have improved as long as she is able to eat slowly Intervention/Plan: Continue to work on prioritizing protein and meeting recommended goal along w ith adequate fluid and fiber intake. Choose fiber-containing starches only if ab le to meet goals for protein, fluid, and nonstarchy veg. Reinforced mindful eating- chew well, tiny bites, eat slowly and without dist ractions Discussed diet/lifestyle habits to maintain weight loss/digestive comfort: Consistent meal schedule, meal timing/spacing and avoiding grazing Label reading, Cooking skills and meal prep/planning Limiting white sugar/flour, liquid calories and "slider" foods, highly proces sed foods, and fast food/restaurant foods; have a plan when eating out Self-monitoring skills, coping/distraction skills Physical activity Regular follow-up/monitoring with bariatric team Provided protein-rich meal handouts to patient via [employer]. Nutrition Monitoring and Evaluation: Goal: Weight loss (2-5 lbs/week) Time Frame: Until BMI <25 is reached or weight stabilizes The patient was allowed to ask questions and actively participated in creating p jerry of care. I provided the patient with my contact information and instructed p t on how to get in touch with me if questions or concerns arise. Thank you for a herminia nutrition services to participate in this patients care. Follow up Date: JORGE Collazo RD,CSOWM, LD Clinical Seed Cleaner Operator Available on Voalte [phone] () documented in this encounter Plan of Treatment Order Schedule Name Type Priority Associated Diag noses Ordered: 02/14/2021 AMB REFERRAL TO NUTRITION Outpatient Routine Stat us post laparoscopic Referral Amna fundoplication documented as of this encounter Goals Goal Patient [...]
--- OUTSIDE RECORDS SUMMARY | 2021-03-17 09:27 | XMS REPORT | Encounter Summary ---
Author Author [facility] Organization [facility] Address Unknown Phone Unavailable Care Team Providers Care Satellite Dish Installer Name Role Phone Heriberto Nunn MD PCP Alan Jackson MD 100 Thania Ruvalcaba MD 100 Reason for Visit * Reason Onset Date Comments Abdominal pain 01/28/2021 Encounter Details Care Team Description Date [place] [address] [place] [address] [phone] Abdominal pain 01/28/2021 Telephone Metabolic and Baria tric Care: [facility]: [address] [place] [address] Social History Date Tobacco Use [...] impairment: No documented as of this encounter Ordered Prescriptions Start Date End Date Prescription Sig Dispensed Refills 01/28/2021 02/27/[address] one 120 tablet 0 (LEVSIN/SL) 0.125 mg tablet under sublingual tablet tongue every 4 hours as needed for Cramps for up to 30 days. 01/28/2021 01/28/2021 hyoscyamine sulfate Take one 120 tablet 0 (LEVSIN) 0.125 mg tablet tablet by mouth every 4 hours as needed for Cramps for up to 30 days. documented in this encounter Miscellaneous Notes * Telephone Encounter - Basia Arevalo RN - 01/28/2021 2:25 PM CDT Patient called to report she is having pain in her chest in the front when she h as deep breaths. She has been having nausea off and on and is only doing liquid diet. Has upcoming UGI with kris and follow up appointment to discuss results in future. Message sent to Dr. Kumar to prescribe Levsin sublingual every 4 hours as needed. Patient notified and sent to preferred pharmacy. Patient in a greement with plan and all questions answered. documented in this encounter Plan of Treatment Not on filedocumented as of this encounter Goals Goal Patient Associated Recent Progress Patient-Stat Aut hor Goal Type Problems ed? GOAL General On track (11/29/2020 Morena montague, 11:20 AM CDT) JERMAN Jackson Note: Back to work and live with out pain documented as of this encounter Visit Diagnoses Not on filedocumented in this encounter Discontinued Medications Start Date End Date Medication Sig Discontinue Reason 01/28/2021 01/28/2021 hyoscyamine sulfate Take one (LEVSIN) 0.125 mg tablet tablet by mouth every 4 hours as needed for Cramps for up to 30 days. documented as of this encounter Additional Health Concerns Assessment Noted Time A fall risk assessment has been completed for the pat ient 12/01/2020 9:34 AM CDT documented as of this encounter
--- OUTSIDE RECORDS SUMMARY | 2021-03-17 09:27 | XMS REPORT | Encounter Summary ---
Author Author [facility] Organization [facility] Address Unknown Phone Unavailable Care Team Providers Care Bi Specialist Name Role Phone Heriberto Nunn MD PCP Alan Jackson MD 100 Thania Ruvalcaba MD 100 Encounter Details Care Team Description Date Type Department 02/06/2021 Hospital Imaging: [facility] [address] [place] [address] Social History Date Tobacco Use Types Packs/Day [...] impairment: No documented as of this encounter Medications at Time of Discharge Start Date End Date Medication Sig Dispensed Refills acetaminophen (TYLENOL) Take 1,000 mg 0 500 mg tablet by mouth every 6 hours as needed for Pain. Max of 4,000 mg of acetaminophen in 24 hours. 09/28/2017 albuterol sulfate Inhale 2 0 (VENTOLIN HFA) 90 puffs by mcg/actuation HFA aerosol mouth into inhaler the lungs every 6 hours as needed. 07/10/2020 apixaban (ELIQUIS) 5 mg twice daily. 0 tablet 02/18/2017 cloNIDine (CATAPRESS) 0.1 Take 0.1 mg 0 mg tablet by mouth daily as needed (Only takes if BP >150/90 mmHg). 08/02/2020 dexlansoprazole TAKE 1 0 (DEXILANT) 60 mg capsule CAPSULE BY MOUTH ONCE DAILY diazePAM (VALIUM) 5 mg Take 5 mg by 0 tablet mouth at bedtime as needed for Anxiety. 12/13/2020 dicyclomine (BENTYL) 20 TAKE 1 TABLET 0 mg tablet BY MOUTH EVERY SIX HOURS FOR ABDOMINAL PAIN 12/13/2020 fluticasone propionate SQUIRT 1 0 (FLONASE) 50 SPRAY ONCE A mcg/actuation nasal DAY IN EACH spray, suspension NOSTRIL furosemide (LASIX) 40 mg Take 40 mg by 0 tablet mouth every morning. levothyroxine (SYNTHROID) Take 100 mcg 0 100 mcg tablet by mouth daily 30 minutes before breakfast. 12/01/2020 ondansetron (ZOFRAN ODT) Dissolve one 30 tablet 0 4 mg rapid dissolve tablet by tablet mouth every [address] on tongue to dissolve. 12/07/2020 oxyCODONE (ROXICODONE) 5 Take one 40 tablet 0 mg tablet tablet to three tablets by mouth every 4 hours as needed 12/01/2020 senna (SENOKOT) 8.6 mg Take one 0 tablet tablet by mouth twice daily. 12/01/2020 simethicone (MYLICON) 80 Chew one 30 tablet 0 mg chew tablet tablet by mouth every 6 hours as needed. For gas pain sotaloL (BETAPACE) 80 mg Take 40 mg by 0 tablet mouth twice daily. 01/28/2021 02/27/[address] one 120 tablet 0 (LEVSIN/SL) 0.125 mg tablet under sublingual tablet tongue every 4 hours as needed for Cramps for up to 30 days. documented as of this encounter Discharge Disposition Code Departure Means Destination Disposition Home Home or Self Care documented in this encounter Plan of Treatment Not on filedocumented as of this encounter Goals Goal Patient Associated Recent Progress Patient-Stat Aut hor Goal Type Problems ed? GOAL General On track (11/29/2020 Morena montague, 11:20 AM CDT) JERMAN Jackson Note: Back to work and live with out pain documented as of this encounter Procedures Comments Procedure Name Priority Date/Time Associated Diag nosis GENERAL RAD ABDOMEN Routine 02/06/2021 Diagnosis unknown EXTERNAL IMAGING 12:00 AM CDT documented in this encounter Results * GENERAL RAD ABDOMEN EXTERNAL IMAGING (02/06/2021 12:00 AM CDT) Specimen Narrative Performed At This order has been auto finalized and does not contain a result. documented in this encounter Visit Diagnoses Diagnosis Diagnosis unknown Other unknown and unspecified cause of morbidity or mortality documented in this encounter Additional Health Concerns Assessment Noted Time A fall risk assessment has been completed for the pat ient 12/01/2020 9:34 AM CDT documented as of this encounter
--- OUTSIDE RECORDS SUMMARY | 2021-03-17 09:27 | XMS REPORT | Encounter Summary ---
Author Author [facility] Organization [facility] Address Unknown Phone Unavailable Care Team Providers Care Draw End Hand Name Role Phone Heriberto Nunn MD PCP Alan Jackson MD 100 Thania Ruvalcaba MD 100 Reason for Visit * Reason Onset Date Comments Worsening Symptoms 01/16/2021 Encounter Details Care Team Description Date [place] [address] [place] [address] [phone] Worsening Symptoms 01/16/2021 Telephone Metabolic and Baria tric Care: [facility]: [address] [place] [address] Social History Date Tobacco Use [...] impairment: No documented as of this encounter Miscellaneous Notes * Telephone Encounter - Basia Arevalo RN - 01/16/2021 3:52 PM CDT Called patient back for follow up after Dr. Matos reviewed her last CT results . Reported to patient that surgical changes were noted and possible small recurr ance of hiatal hernia. Reported to patient that per Dr. Matos this does not ac count for symptoms of inability to swallow or abdominal pain. Per his recommenda tions telehealth appointment set up for Thursday this week with her original surge on Dr. Kumar to discuss symptoms. Patient in agreement with plan and all qu estions answered. documented in this encounter Plan of [...]
--- OUTSIDE RECORDS SUMMARY | 2021-03-17 09:27 | XMS REPORT | Encounter Summary ---
Author Author [facility] Organization [facility] Address Unknown Phone Unavailable Care Team Providers Care Center Punch Operator Name Role Phone Heriberto Nunn MD PCP Alan Jackson MD 100 Thania Ruvalcaba MD 100 Reason for Referral * Consult, Test & Treat Referred By Contact Referred To Contact Status Reason Specialty Diagnoses / [place] [address] [place] [address] [place] [address] [place] [address] Authorized Specialty Services Nutrition / Diagnoses Required Bariatrics Status post laparoscopic Amna fundoplication Comments Please see patient for telemedicine evaluation. Having difficult time with food choices after recurrent paraesophageal hernia repair. Would benefit from bariatric Phase 4 diet/ high protein but low residue type options. Electronically signed by Carol Kumar MD at Reason for Visit * Reason Comments Follow Up Hernia * Consult, Test & Treat (Routine) Referred By Contact Referred To Contact Status Reason Specialty Diagnoses / Procedures New Request Encounter Details Care Team Description [place] [address] [place] [address] [phone] Status post laparoscopic Amna fundopli cation (Primary Dx) 02/14/2021 Office Visit Metabolic and Baria tric Telehealth Care: [facility]: [id number] [place] [id number] Social History Date Tobacco Use Types Packs/Day [...] Signs Reading Time Taken Comments Vital Sign 142/88 02/14/2021 9:17 AM CDT Blood Pressure 67 02/14/2021 9:17 AM CDT Pulse - - Temperature - - Respiratory Rate - - Oxygen Saturation - - Inhaled Oxygen Concentration 82.1 kg (181 lb) 02/14/2021 9:17 AM CDT Weight 162.6 cm (5' 4") 02/14/2021 9:17 AM CDT Height 31.07 02/14/2021 9:17 AM CDT Body Mass Index documented in this encounter Functional Status Date of Assessment Functional Status Response 11/29/2020 Does the patient have a hearing impairment: No documented as of this encounter Patient Instructions * Patient Instructions* Lida Peterson - 02/14/2021 9:30 AM CDT Images from the original note were not included. Your next appointment will be your 6 month postoperative appointment. Below is the "Perfect Plate" guideline of how to appropriately proportion health y foods. How to Portion Your Plate The following lists are only a small sample of a variety of foods that are consi dered "GOOD" food choices Protein: Half of your plate, or 3-6 ounces. 3 ounces=size of a deck of cards. EAT FIRST-TOP OF PLATE Beef, low fat cheese, chicken breast, turkey breast, egg, fish, shrimp Low Carbohydrate Vegetables and/or Salad: 30% of your plate or 1/2 cup EAT SECOND- BOTTOM LEFT HALF OF PLATE Mcdonald peppers, broccoli, brussel sprouts, cabbage, dark green leafy lettuce, c arrots, green beans, mushrooms, spinach, summer squash, tomatoes, zucchini Carbohydrates: 20-30% of your plate, or 1/3-1/2 cup EAT LAST Peas, potatoes, fruits, whole grain products. If dessert is desired (occasional) use in place of your carbohydrate DO NOT DRINK DURING MEAL OR FOR ONE HOUR AFTER LAST BITE. Drink 64 ounces (8, 8 ounce glasses) daily of water or non-sugar containing d rinks. After Hernia Surgery You can often go home the same day as surgery. If you hadsurgery to fix aven tral or incisional hernia, you may need to stay in the hospital overnight.To s peed healing, take an active role in your recovery. These tips can help. Reducing swelling Early on, the area around your incision may be swollen, bruised, and sore. To re duce swelling, put an ice pack or bag of frozen peas in a thin towel. Place the towel on the swollen area3 to 5times a day. Keep it there for15 to 20 jaleel chidi at a time. Managing pain Take any prescribed pain medicines as told. Some pain medicines can cause consti pation. So yourhealthcare providermay also tell you to take a laxative or st ool softener. Returning to normal You can get back to your normal routine as soon as you feel able, unless your he althcare provider gives you other instructions. Just take it easy and stick to t hese guidelines: Take short walks to improve circulation. Don't do any heavy lifting for at least 2 weeks. Stay out of baths, hot tubs, and swimming pools for at least a week to protec t your incisions. Ask yourhealthcare providerwhen you can drive and go back to work. You can have sex again when you feel ready. Follow-up care Be sure to keep all follow-up visits with yourhealthcare provider. These make sure youre healing well. During visits, your stitches, cyrus, or bandage ma y be removed. When to call your healthcare provider Call yourhealthcare providerif you have any of these: A large amount of swelling or bruising (some testicular swelling and bruising is normal) Fever of 100.4F(38C) or higher, or as directed by your healthcare provi anatoliy Chills Pain, redness, bleeding, or fluid from the incision that gets worse Trouble urinating Constipation Vomiting Chloé last reviewed this educational content on 12/11/201819999094-4147 The [employer]. All rights reserved. This information is not intended as a substitute for professional medical care. Always follow your healthcare professional's instructions. After Laparoscopic Hernia Repair You had a procedure called laparoscopic hernia repair. A hernia is a defect in t he tough tissue covering the musculature of the abdominal wall (fascia). During laparoscopic hernia surgery, a surgeon inserts a telescope attached to a camera as well as surgical instruments through tiny incisions in your abdomen. The surg samuel repairs theherniawith a mesh, which patches the tear or weakness in the fascia. Home care You may have sharp pain that radiates to your shoulder. This is referred pain from the gases they used to inflate your belly. It'scommon and usually lasts a short time. You may also have numbness around the incision area. Keep doing the coughing and deep breathing exercises that you learned in the hospital. These will help to prevent lung infection. Prevent constipation so you dont strain when going to the bathroom. Eat fr uits, vegetables, and whole grains. Drink 6 to 8glasses of water a day, unless otherwise directed. Use a laxative or a mild stool softener if yourhealthcare providersays its OK. Wash your incision with mild soap and water. Pat it dry. Dontuse oil, po wder, or lotion on your incision. Shower or take baths as instructed by yourhealthcare provider. Instructions will vary based on how your incision was closed and how its healing. It may be closed with glue, stitches, or cyrus. Your healthcare provider may have dif ferent advice for each kind. Activity Ask others to help with chores and errands while you recover. Dont lift anything heavier than10 pounds (4.5 kg) until yourhealthcare providersays its OK. Dont mow the lawn, use a vacuum airplane cleaner, or do other strenuous activities until yourhealthcare providersays it's OK. Climb stairs slowly and pause after every few steps. Walk as often as you feel able. Ask yourhealthcare providerwhen you can drive again. This may be when you stop taking pain medicine and can move comfortably from side to side. Dont d rive if you are still taking opioid pain medicine. When to call yourhealthcare provider Call yourhealthcare providerright away if you have any of the following: Pain, bleeding, redness, or fluid at the incision site that gets worse Fever of100.4F (38C) or higher or as directed by your healthcare provid er Chills Vomiting or nausea that doesnt go away Inability to urinate No bowel movement after 3 days Swelling in abdomen or groin that gets worse Pain thats not relieved by medicine Anchanto last reviewed this educational content on 12/11/201819990363-0603 The [employer]. All rights reserved. This information is not intended as a substitute for professional medical care. Always follow your healthcare professional's instructions. documented in this encounter Progress Notes * Carol Kumar MD - 02/14/2021 9:30 AM CDT Obtained patient's, or patient proxy's, verbal consent to treat them and their agreement to [facility] financial policy and NPP via this telehealth visit during the [facility] Emergency CC: Post-op appointment Subjective: Maria Fernanda Rondon is a 55 y.o. status post laparoscopic recurrent paraesophag eal hernia repair with Acell mesh with modified Hill-Amna fundoplication. Patient has had persistent post-operative symptoms of pain in chest region. Abdi l have intermittent symptoms of emesis. Will tolerate some foods one day and th en won't tolerate it well again another day. These symptoms were present pre-op eratively and we discussed the lack of resolution of these symptoms to be expect ed with recurrent paresophageal hernia repair as reflux felt to not be the under lying etiology. She is eating more this week than she did the week before. Has tried to eat antonio ak and rice. Steak has gone well on one occasion and then will not the next day . Has tried rice and feels this did not go well. She underwent upper GI study at [facility] on 02/06/21. This revealed intact esophageal anatomy and mucosal pattern without evidence of reflux. There was i ntact gastric emptying. Note was made of a filling defect to fundus and recomme ndation for EGD if one had not previously been performed- patient had had recent EGD as work up and evaluation of recurrent paraesophageal hernia. PE: Vitals: 02/14/21 0917 BP: (!) 142/88 Pulse: 67 Weight: 82.1 kg (181 lb) Height: 162.6 cm (64") PainSc: Three Body mass index is 31.07 kg/m. No flowsheet data found. No flowsheet data found. No flowsheet data found. No flowsheet data found. Gen: A/Ox3, NAD HEENT: EOMI, sclera anicteric Chest: nonlabored, able to speak in complete sentences without difficulty Derm: No rashes apparent Body mass index is 31.07 kg/m. A/P: 55 y.o. female s/p laparoscopic recurrent paraesophageal hernia repair wit h mesh and modified Hill-Amna fundoplication. Overall improving. 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 Upper GI reviewed with normal anatomy and intact esophageal peristalsis. Excell ent anatomic result from surgery. Will ask bariatric dental ceramist helper to assist patient with food choices that will be be tter tolerated/high protein options as I think this is the sanchez for her recovery at this point now that we have ruled out anatomic issues. documented in this encounter Plan of Treatment Order Schedule Name Type Priority Associated Diag noses Ordered: 02/14/2021 AMB REFERRAL TO NUTRITION Outpatient Routine Stat us post laparoscopic Referral Anma fundoplication documented as of this encounter Goals Goal Patient Associated Recent Progress Patient-Stat Aut hor Goal Type Problems ed? GOAL General On track (11/29/2020 No Silver montague, 11:20 AM CDT) JERMAN Jackson Note: Back to work and live with out pain documented as of this encounter Visit Diagnoses Diagnosis Status post laparoscopic Amna fundopl ication - Primary documented in this encounter Additional Health Concerns Assessment Noted Time A fall risk assessment has been completed for the pat ient 12/01/2020 9:34 AM CDT documented as of this encounter
--- OUTSIDE RECORDS SUMMARY | 2021-03-17 09:27 | XMS REPORT | Clinical Summary ---
Author Author [facility] Organization [facility] Address Unknown Phone Unavailable Care Team Providers Care Thread Dresser Name Role Phone Heriberto Nunn MD PCP Alan Jackson MD 100 Thania Ruvalcaba MD 100 Source Comments Some departments are not documenting in the electronic medical record. If you d o not see the information that you expected, contact [facility] Information Management department at [phone] for further assistan ce in locating additional records.[facility] Allergies Comments Active Allergy Reactions Severity Noted Date Pt reports hand rash with latex gloves. Latex ITCHING, RASH Medium 01/01/2012 Medications End Date Status Medication Sig Dispensed Refills Start Date Active albuterol sulfate Inhale 2 0 (VENTOLIN HFA) 90 puffs by 8 mcg/actuation HFA aerosol mouth into inhaler the lungs every 6 hours as needed. Active cloNIDine (CATAPRESS) 0.1 Take 0.1 mg 0 08/0 201 mg tablet by mouth 7 daily as needed (Only takes if BP >150/90 mmHg). Active levothyroxine (SYNTHROID) Take 100 mcg 0 100 mcg tablet by mouth daily 30 minutes before breakfast. Active sotaloL (BETAPACE) 80 mg Take 40 mg by 0 tablet mouth twice daily. Active furosemide (LASIX) 40 mg Take 40 mg by 0 tablet mouth every morning. Active diazePAM (VALIUM) 5 mg Take 5 mg by 0 tablet mouth at bedtime as needed for Anxiety. Active simethicone (MYLICON) 80 Chew one 30 tablet 0 0 12/01/202 mg chew tablet tablet by 1 mouth every 6 hours as needed. For gas pain Active senna (SENOKOT) 8.6 mg Take one 0 12/01/ 02 tablet tablet by 1 mouth twice daily. Active ondansetron (ZOFRAN ODT) Dissolve one 30 tablet 0 4 mg rapid dissolve tablet by 1 tablet mouth every [address] on tongue to dissolve. Active apixaban (ELIQUIS) 5 mg twice daily. 0 tablet 0 Active dexlansoprazole TAKE 1 0 (DEXILANT) 60 mg capsule CAPSULE BY 1 MOUTH ONCE DAILY Active oxyCODONE (ROXICODONE) 5 Take one 40 tablet 0 0 mg tablet tablet to 1 three tablets by mouth every 4 hours as needed Active acetaminophen (TYLENOL) Take 1,000 mg 0 500 mg tablet by mouth every 6 hours as needed for Pain. Max of 4,000 mg of acetaminophen in 24 hours. Active dicyclomine (BENTYL) 20 TAKE 1 TABLET 0 mg tablet BY MOUTH 1 EVERY SIX HOURS FOR ABDOMINAL PAIN Active fluticasone propionate SQUIRT 1 0 02 (FLONASE) 50 SPRAY ONCE A 1 mcg/actuation nasal DAY IN EACH spray, suspension NOSTRIL 02/27/[address] one 120 tablet 0 (LEVSIN/SL) 0.125 mg tablet under 1 sublingual tablet tongue every 4 hours as needed for Cramps for up to 30 days. Active Problems Problem Noted Date Status post laparoscopic Rose fundoplication 12/07 Overview: Formatting of this note might be differ ent from the original. 11/28/2020 - Laparoscopic repair of recu rrent hiatal hernia with mesh, rose fundoplication completed by Dr. Carol Kumar Gastroesophageal reflux disease with hiatal hernia 0 11/28/2020 Hiatal hernia 10/17/2020 Overview: Formatting of this note might be differ ent from the original. Recurrent; lap HH repair, ? Fundoplicat ion 2019 [place]. 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 [employer]ronic Pacemaker Sinus node dysfunction 10/19/2017 Paroxysmal atrial fibrillation 10/14/2017 Fracture of left fibula 09/04/2017 Chest pain 01/04/2017 Calculus of right kidney 01/04/2017 Encounters Care Team Description Date Type Specialty Carol Kumar MD 03/06/2021 Clinical Bariatrics Support Carol Kumar MD Status post laparoscopic Rose fundopli cation (Primary Dx) 02/14/2021 Office Visit Bariatrics Telehealth 02/06/2021 Hospital Radiology Encounter Carol Kumar MD Abdominal pain 01/28/2021 Telephone Bariatrics Carol Kumar MD 01/23/2021 Telephone Bariatrics Carol Kumar MD Follow Up 01/22/2021 Telephone Bariatrics Carol Kumar MD Dysphagia, unspecified type (Primary Dx) ; Status post laparoscopic Rose fundoplication; Hiatal hernia 01/18/2021 Office Visit Bariatrics Telehealth Carol Kumar MD Worsening Symptoms 01/16/2021 Telephone Bariatrics Delbert Matos MD Abdominal pain 01/16/2021 Telephone Bariatrics 01/10/2021 Hospital Radiology Encounter Carol Kumar MD Prior Authorization 01/08/2021 Telephone Bariatrics Mario Fraire MD Status post laparoscopic Rose fundopli cation (Primary Dx) 12/27/2020 Office Visit Bariatrics Telehealth from Last 3 Months Surgical History Surgery Date Site/Laterality Comments TONSILLECTOMY LAPAROSCOPIC APPENDECTOMY HX LAP CHOLECYSTECTOMY HX HYSTERECTOMY Complete HX HEMORRHOIDECTOMY HIATAL HERNIA REPAIR 07/13/2018 - + some form of an tireflux procedure 07/12/2019 HX SURGERY Cardiac ablation x3 PACEMAKER PLACEMENT DILATION AND CURETTAGE multiple HX BLADDER SUSPENSION HX SURGERY Uvulectomy HX HEART CATHETERIZATION 07/13/2010 - 07/12/2011 LAPAROSCOPY Multiple HERNIA REPAIR 11/28/2020 Abdomen/N/A LAPAROSCOPIC RE PAIR PARAESOPHAGEAL HERNIA WITH/ WITHOUT FUNDOPLASTY AND IMPLANTATION OF MESH performed by Carol Kumar MD at [facility] Medical devices from this surgery are i n the Implants section. UPPER GASTROINTESTINAL 11/28/2020 Esophagus/N/A ESOPHAG OGASTRODUODENOSCOPY WITH SPECIMEN ENDOSCOPY COLLECTION BY BRUSHING/ WAS IMELDA performed by Carol Kumar MD at [facility] Medical devices from this surgery are i n the Implants section. Medical History Medical History Date Comments GERD (gastroesophageal reflux disease) Hypothyroidism Atrial fibrillation (HCC) Reina esophagus Endometriosis History of 2019 novel coronavirus 06/2020 disease (COVID-19) Hiatal hernia 10/17/2020 Recurrent; lap AIDE [place]air, ? [place] 2011 CVA (cerebral vascular accident) (HCC) 2011 Left side weakness Congestive heart disease (HCC) Lightheadedness Dizziness MELISSA (obstructive sleep apnea) Heart attack (HCC) 12/03/2020 [facility] Social History Date Tobacco Use Types Packs/Day [...] Date Recorded Female 11/07/2020 4:54 PM CDT Last Filed Vital Signs Reading Time Taken Comments Vital Sign 142/88 02/14/2021 9:17 AM CDT Blood Pressure 67 02/14/2021 9:17 AM CDT Pulse 36.6 C (97.9 F) 12/07/2020 11:21 AM CDT Temperature - - Respiratory Rate 99% 12/07/2020 11:21 AM CDT Oxygen Saturation - - Inhaled Oxygen Concentration 80.7 kg (178 lb) 03/06/2021 1:00 PM CDT Weight 162.6 cm (5' 4.02") 03/06/2021 1:00 PM CDT Height 30.54 03/06/2021 1:00 PM CDT Body Mass Index Plan of Treatment Health Maintenance Due Date Last Done Comments HIV SCREENING 1982 DTAP/TDAP VACCINES (1 - 1985 Tdap) HEPATITIS C SCREENING 1985 PHYSICAL (COMPREHENSIVE) 1985 EXAM CERVICAL CANCER SCREENING 1988 BREAST CANCER SCREENING 2007 COLORECTAL CANCER 2017 SCREENING SHINGLES RECOMBINANT 2017 VACCINE (1 of 2) INFLUENZA VACCINE 04/12/2021 Goals Goal Patient Associated Recent Progress Patient-Stat Aut hor Goal Type Problems ed? GOAL General On track (11/29/2020 No Silver mont[place], 11:20 AM CDT) JERMAN Jackson Note: Back to work and live with out pain Implants Device Identifier Shelf Expiration Date Model / Serial / L ot Implanted Type Area Manufactur er 05/12/2021 [id number] / [id number] / [id number] Graft Soft Tissue 10x7cm Matristem N/A: Abdomen [employer] Porcine Urinary Bladder Dup1 - [id number] Implanted: Qty: 1 on 11/28/2020 by Carol Kumar MD at [facility] Procedures Comments Procedure Name Priority Date/Time Associated Diag nosis GENERAL RAD ABDOMEN Routine 02/06/2021 Diagnosis unknown EXTERNAL IMAGING 12:[address] ABD/PEL EXTERNAL Routine 01/10/2021 Diagnosis unknown IMAGING 12:00 AM CDT from Last 3 Months Results * GENERAL RAD ABDOMEN EXTERNAL IMAGING (02/06/2021 12:00 AM CDT) Specimen Narrative Performed At This order has been auto finalized and does not contain a result. * CT ABD/PEL EXTERNAL IMAGING (01/10/2021 12:00 AM CDT) Specimen Narrative Performed At This order has been auto finalized and does not contain a result. from Last 3 Months Insurance Type Payer Benefit Subscriber ID Effective Phone Address Plan / Dates [id number]-P [employer] Advance Directives Patient Manufacturing Technologist Explanation Type Date Recorded Advance 11/29/2020 2:09 PM Directive/DPOA Date Inactivated Comments Code Status Date Activated 12/01/2020 6:15 PM Full Code 11/28/2020 6:20 PM Provider has discussed Code Status No, more discussi on w/Patient or Family? needed
--- OUTSIDE RECORDS SUMMARY | 2021-03-17 09:27 | XMS REPORT | Encounter Summary ---
Author [facility] Address Unknown Phone Unavailable Care Team Providers Care Frame Wirer Name Role Phone Heriberto Nunn MD PCP Alan Jackson MD 100 Thania Ruvalcaba MD 100 Reason for Referral * Radiology Services (Routine) Referred By Contact Referred To Contact Status Reason Specialty Diagnoses / [place] [address] [place] [address] New Request Diagnoses Dysphagia, unspecified type P rocedures UPPER GI AIR/BARIUM WO KUB Electronically signed by Carol Kumar MD at Reason for Visit * Reason Comments Follow Up discussion post-surgical sy mptoms Encounter Details Care Team Description [place] [address] [place], [place] [id number] Dysphagia, unspecified type (Primary Dx) ; Status post laparoscopic Amna fundoplication; Hiatal hernia 01/18/2021 Office Visit Metabolic and Baria tric Telehealth Care: [facility]: [id number] [place] [address] Social History Date Tobacco Use [...] Oxygen Saturation - - Inhaled Oxygen Concentration 81.6 kg (180 lb) 01/18/2021 9:38 AM CDT Weight 162.6 cm (5' 4") 01/18/2021 9:38 AM CDT Height 30.9 01/18/2021 9:38 AM CDT Body Mass Index documented in this encounter Functional Status Date of Assessment Functional Status Response 11/29/2020 Does the patient have a hearing impairment: No documented as of this encounter Patient Instructions * Patient Instructions* Lida Peterson - 01/18/2021 9:45 AM CDT Images from the original note were not included. Your next appointment will be your 3 month post-operative appointment. Please have your labs drawn ~1 week prior to your appointment. You no longer have lifting restrictions. Now is the time to increase that physi mt activity!!! Below are tips to make the most of your surgical "tool" as well as a reminder of the Stage 4 diet and foods that may digest more easily. Making Bariatric Surgery Work for You After bariatric surgery, success is in your hands. The changes you make need to be lifelong commitments. Follow any instructions you are given on nutrition and activity. Be aware that how you see yourself and how others see you may change. Turn to those close to you for support. They can help you adjust to your new lif e. What to expect as you lose weight Most likely, you will lose weight steadily for the first 6 to 12 months after nelson rgery. The most rapid weight loss often happens during the first 6 months after surgery. Most patients lose over half their excess weight in the first year and a half. After that, you may gain a small amount of weight back. This is normal. Set realistic and meaningful goals for weight loss. Most likely, you wont hudson ch your ideal weight. But youll reach a healthier weight. Changing your eating habits To stay healthy, you may be given guidelines such as: Choose high-protein foods to help prevent nutritional problems. Eat slowly. Take small bites. Chew each bite well before swallowing it. Stop eating when you feel satisfied. Try not to reach that full feeling. Doing s o can stretch the bariatric surgical procedure and allow you to eat more. If you want to snack between scheduled meals, talk with your dietitian about hea lthy snack choices. Drink sugar-free liquids, such as water. Drink them between (not with) meals. Wa it at least 30 to 60 minutes after meals before drinking liquids. Take vitamins as directed. Avoid fibrous foods, such as celery, string beans, and unprocessed meat. Avoid alcohol and carbonated drinks. Having an active lifestyle These tips can help you succeed: Choose a form of regular exercise you enjoy. Exercise at your own pace. Ask a friend to join you. Keep a record of your exercise activity in a calendar or notebook. Some people f ind this a good way to track their progress and stay motivated. Stage 4: Returning to a regular diet You are now around six weeks post-surgery and it is time to add whole foods back into your diet. This can be hard, but you should continue with the rules you walker ve already learned. Do not drink with meals and wait for one hour after to drink , eat protein first, eat slowly and thoughtfully, chew thoroughly. Try to chew e ach small bite 20-30 times.. Count your protein and remember your goal of 60-80 grams daily. Monitor your fluid intake. Drink only low calorie or zero calorie l iquids. As you try new foods and textures, try to only try one new food or texture at at time. The reason is if a food is going to disagree with you, it is easier to fi nd out what when wrong. Tough, fibrous, dry and sticky foods seem the most likel y suspects when causing your stomach to be upset. This doesnt mean you will n ever be able to eat these foods ever again, but it does mean you are not ready f or them yet. These items are listed because they can cause problems. If you do h ave trouble with anything, wait a couple of weeks and try again. Most common foods that may disagree: Bread, soft untoasted Rice Pasta Solid cuts of meat cooked through-sirloin, pork chops Stringy or fibrous fruits and vegetables- asparagus, celery, rhubarb, coconu t, pineapple Popcorn Dense, doughy textures Fruits with seeds and peels You may have some foods you loved before surgery that you just cant tolerate afterwards. Have you ever heard of aversion therapy? Its where you are taught to respond a specific way because if you make a mistake something unpleasant walker ppens. In this step of returning to a healthy diet plan, if you make a mistake the consequences will be fast and painful. You will learn very quickly what your body wants and how to supply it. half-way, all foods can be eaten, just in sma ller portions. Food choices that may be better tolerated Here are tables dividing food into groups. This is not a list of everything, but a general list of advised items for you to include in your diet but it will g alessio you examples and a place to start. It is quite possible that your tastes cruzito l have changed. Go slowly, but try that new item you always thought too expensiv e before. Sure, the dominguez of the item hasnt gone down but now you will get 3- 4 meals out of it instead of it just being a part of one meal as before. Recogni ze all the hard work you have done detoxifying your body since you began the pre -op diet and reward yourself. Sample shopping list Skim milk Soy milk, no added sugar Eggs Lean tender cuts of meat, chicken and fish Bouillon cubes or broth Meat marinades Bevier lunch meat, thin sliced Canned, frozen or fresh vegetables Unsweetened canned fruit Low-fat cottage cheese Reduced fat string cheese Low-fat, sugar-free yogurt, Dominican yogurt has more protein, may have fruit ad ded Whole grain crackers Calcium supplements Multivitamin supplements Protein foods always eat first! Eat 2-3 servings per day, each serving i s 3 ounces (about the size of a deck of cards) Very lean protein-about 35 calories per ounce o Chicken or turkey breast-skinless o Water packed tuna o Cod, tilapia, trout, yaz, snapper o Shellfish-crab, scallops, shrimp o Oysters o Clams o Egg whites or cup egg substitute o Soy milk-no sugar added o Vegetable meat substitute Lean protein-about 55 calories per ounce o Pork or beef tenderloin o Sirloin o Flank steak o Dark meat chicken or turkey o Lean ham o Grenadian dominguez o Veal o [place] Nonfat dairy- 2-3 servings per day o 1 cup skim milk o 6 ounces fat free, sugar free yogurt- Dominican style has more protein, may con tain fruit o 1-ounce low-fat, nonfat cheese o cup fat-free or low-fat cottage cheese o cup nonfat or low-fat ricotta cheese o See your Bariatric New Patient Binder for sample menus Making Bariatric Surgery Work for You After bariatric surgery, success is in your hands. The changes you make need to be lifelong commitments. Follow any instructions you are given on nutrition and activity. Be aware that how you see yourself and how others see you may change. Turn to those close to you for support. They can help you adjust to your new lif e. What to expect as you lose weight Most likely, you will lose weight steadilyfor the first 6 to 12 monthsafter surgery. The most rapid weight loss often happens during the first 6 months afte r surgery. Most people lose over half their excess weight in the first year and a half. After that, you may gain a small amount of weight back. This is normal. Set realistic and meaningful goals for weight loss.Most likely, you wont re ach your ideal weight. But youll reach a healthier weight. Changing your eating habits To stay healthy, you may be given guidelines such as: Choose high-protein foods to help prevent nutritional problems. Eat slowly. Take small bites. Chew each bite well before swallowing it. Stop eating when you feel satisfied. Try not to reach that full feeling. Doin g so can stretch the bariatric surgical procedure and allow you to eat more. If you want to snack between scheduled meals, talk with your dietitian about healthy snack choices. Drink sugar-free liquids, such as water. Drink them between (not with) meals. Wait at least 30 to 60 minutes after meals before drinking liquids. Take vitamins as directed. Don't eat fibrous foods, such as celery, string beans, and unprocessed meat. Don't drink alcohol and carbonated drinks. Having an active lifestyle These tips can help you succeed: Choose a form of regular exercise you enjoy. It can be as simple as daily wal félix. Walking is a popular choice for people who have had bariatric surgery. But , don't swim until your incisions heal. Exercise at your own pace. Start slow and increase the time and intensity as you heal. Don't lift weights, or do sit-ups or pull-ups, or any exercise that st rains your abdominal muscles until your healthcare provider says it's OK. Ask a friend to join you. Keep a record of your exercise activity in a calendar or notebook. Some peopl e find this a good way to track their progress and stay motivated. Finding support See your bariatric surgery team on a regular basis, especially during the first year after surgery. You might talk to: Friends and family members. Other bariatric surgery patients. Often they know just what youre going th rough. You may find other people through a support group at your bariatric surge ry program. Or there may be a group in your local community. There are also [facility] communities such [facility]. A mental health professional. If you spoke to one before surgery, you might s [place] him or her out again. Special counseling or classes may be helpful. Resources [place] Society for Metabolic and Bariatric Surgery www.asmbs.org National Heart, Lung, and Blood [place] Obesity Education Initiative www.nh lbi.nih.gov/health/public/heart/obesity/lose_wt Chloé last reviewed this educational content on 05/13/201919990139-5264 [employer], [employer]. All rights reserved. This information is not intended as a substitute for professional medical care. Always follow your healthcare professional's instructions. documented in this encounter Progress Notes * Carol Kumar MD - 01/18/2021 9:45 AM CDT Obtained patient's, or patient proxy's, verbal consent to treat them and their agreement to [facility] financial policy and NPP via this telehealth visit during the [facility] CC: Morbid obesity, ~ 6 week appointment status post Laparoscopic revision of p araesophageal hernia with modified Hill-Amna fundoplication Subjective: Maria Fernanda Rondon is a 55 y.o. status post above. Patient reports she is having persistent issues with pain as well as dysphagia. Of note, patient also with pre-operative pain which we discuss not a characteris tic symptom of reflux and not anticipated to improve with recurrent hiatal herni a repair. In regards to dysphagia, patient states that she feels more solid foods pass mor e easily than liquids. Underwent CT 01/10/21 and question on report if recurrent hiatal hernia. I reviewed her previous CT 12/03/20 as well as this scan on 1 and do not clearly see evidence of hiatal hernia. Patient currently not repor ting heartburn symptoms. Main symptoms is dysphagia as well as RUQ pain. PE: Vitals: 01/18/21 0938 Weight: 81.6 kg (180 lb) Height: 162.6 cm (64") PainSc: Four No flowsheet data found. No flowsheet data found. No flowsheet data found. No flowsheet data found. Gen: A/Ox3, NAD HEENT: EOMI, sclera anicteric Chest: nonlabored, able to speak in complete sentences without difficulty Derm: No rashes apparent A/P: 55 y.o. female s/p laparoscopic recurrent hiatal hernia repair with modifi ed Hill-Amna fundoplication with post-operative dysphagia No clear pathology identified on CT scan. Will obtain upper GI for functional evaluation and review of anatomy. Has sched uled telemedicine appt already later in month. Would like to have upper GI done at home facility. documented in this encounter Plan of Treatment Order Schedule Name Type Priority Associated Diag noses Expected: 01/19/2021 (Approximate), Expi res: 01/18/2022 UPPER GI AIR/BARIUM WO Imaging Routine Dysphag ia, unspecified KUB type documented as of this encounter Goals Goal Patient Associated Recent Progress Patient-Stat Aut hor Goal Type Problems ed? GOAL General On track (11/29/2020 No [place], 11:20 AM CDT) JERMAN Jackson Note: Back to work and live with out pain documented as of this encounter Visit Diagnoses Diagnosis Dysphagia, unspecified type - Primary Status post laparoscopic Amna fundopl ication Hiatal hernia Diaphragmatic hernia without mention of obstruction or gangrene documented in this encounter Additional Health Concerns Assessment Noted Time A fall risk assessment has been completed for the pat ient 12/01/2020 9:34 AM CDT documented as of this encounter
--- OUTSIDE RECORDS SUMMARY | 2021-03-17 09:27 | XMS REPORT | Encounter Summary ---
Author Author [facility] Organization [facility] Address Unknown Phone Unavailable Care Team Providers Care Order Analyst Name Role Phone Heriberto Nunn MD PCP Alan Jackson MD 100 Thania Ruvalcaba MD 100 Reason for Visit * Reason Onset Date Comments Follow Up 01/22/2021 Encounter Details Care Team Description Date [place] [address] [place] [address] [phone] Follow Up 01/22/2021 Telephone Metabolic and Baria tric Care: [facility]: [id number] [place] [address] Social History Date Tobacco Use [...] Telephone Encounter - Basia Arevalo RN - 01/22/2021 11:53 AM CDT Called and left voicemail for patient. Had received call from home facility [facility] that they will be unable to schedule her UGI due to lack of equ ipment. Left message to see if patient would like to use another facility or go to . documented in this encounter Plan of Treatment [...]
--- OUTSIDE RECORDS SUMMARY | 2021-03-17 09:28 | XMS REPORT | Encounter Summary ---
Author Author [facility] Organization [facility] Address Unknown Phone Unavailable Care Team Providers Care Toolsmith Name Role Phone Heriberto Nunn MD PCP Alan Jackson MD 100 Thania Ruvalcaba MD 100 Reason for Visit * Reason Onset Date Comments Abdominal pain 01/16/2021 Encounter Details Care Team Description Date [place] [address] [place] [address] [phone] Abdominal pain 01/16/2021 Telephone Metabolic and Baria tric Care: [facility]: [address] [place] [address] Social History Date Tobacco Use [...] Encounter - Basia Arevalo RN - 01/16/2021 1:22 PM CDT Spoke with patient regarding symptoms. She reports new onset pain below her ster num, that even soft foods are getting stuck. She was recently at [facility] in [place] where CT was performed. Informed patient that we would reque st records/scan and then call for follow up instructions. Patient in agreement w ith plan and all questions answered. documented in [...]
[2021-03-17 09:58] LABS: BASOPHILS # (AUTO) 0.1 10^3/uL (0.0-0.1); BASOPHILS % (AUTO) 0 % (0-10); EOSINOPHILS # (AUTO) 0.1 10^3/uL (0.0-0.3); EOSINOPHILS % (AUTO) 1 % (0-10); HEMATOCRIT 42 % (35-52); HEMOGLOBIN 13.7 g/dL (11.5-16.0); LYMPHOCYTES # (AUTO) 2.8 10^3/uL (1.0-4.0); LYMPHOCYTES % (AUTO) 23 % (12-44); MEAN CORPUSCULAR HEMOGLOBIN 28 pg (25-34); MEAN CORPUSCULAR HGB CONC 33 g/dL (32-36); MEAN CORPUSCULAR VOLUME 86 fL (80-99); MEAN PLATELET VOLUME 10.5 fL (9.0-12.2); MONOCYTES # (AUTO) 0.9 10^3/uL (0.0-1.0); MONOCYTES % (AUTO) 8 % (0-12); NEUTROPHILS # (AUTO) 8.2 10^3/uL (1.8-7.8); NEUTROPHILS % (AUTO) 68 % (42-75); PLATELET COUNT 261 10^3/uL (130-400); WHITE BLOOD COUNT 12.1 10^3/uL (4.3-11.0)
[2021-03-17 10:03] LABS: ALBUMIN 4.4 GM/DL (3.2-4.5); POTASSIUM 3.8 MMOL/L (3.6-5.0)
[2021-03-17 10:04] LABS: CALCIUM 9.6 MG/DL (8.5-10.1)
[2021-03-17 10:05] LABS: TOTAL PROTEIN 8.2 GM/DL (6.4-8.2)
[2021-03-17 10:06] LABS: INR 1.1 (0.8-1.4); PROTHROMBIN TIME PATIENT 14.2 SEC (12.2-14.7)
[2021-03-17] MEDS ORDERED: RT-ALBUTEROL HFA 8.5 GM INHALER IH STA (10:06)
[2021-03-17 10:07] LABS: BILIRUBIN,TOTAL 0.9 MG/DL (0.1-1.0)
[2021-03-17 10:09] LABS: CREATININE SERUM 0.85 MG/DL (0.60-1.30)
[2021-03-17 10:12] LABS: MAGNESIUM 1.9 MG/DL (1.6-2.4)
[2021-03-17] MEDS ORDERED: HOLD METFORMIN - RECEIVED CONTRAST 20 ML VIAL IV SCH (11:30)
[2021-03-17] MEDS ORDERED: NS 100 ML (IVPB) BAG IV ONE (11:30)
[2021-03-17] MEDS ORDERED: IOHEXOL 350 MG/ML 100 ML (OMNIPAQUE 350) VIAL IV ONE (11:30)
--- NOTE | 2021-03-17 11:54 | Diagnostic Imaging Report ---
EXAMINATION: CHEST (PA AND LATERAL) CLINICAL INDICATION: 55-year-old female, shortness of breath. COMPARISON: August 15, 2020. FINDINGS: There is a left-sided cardiac assist device with leads. Leads appear intact. Heart size and mediastinal contours are unchanged. There is no identified pneumothorax. There is no large pleural effusion. There is no identified focal airspace consolidation. IMPRESSION: No identified acute cardiopulmonary abnormality. Dictated by: Dictated on workstation # [id number]
--- NOTE | 2021-03-17 12:01 | Diagnostic Imaging Report ---
PROCEDURE: CT angiography of the chest with contrast. TECHNIQUE: Multiple contiguous axial images were obtained through the chest after uneventful bolus administration of intravenous contrast. 3D reconstructed CTA MIP acquisitions were also performed. Auto Exposure Controls were utilized during the CT exam to meet ALARA standards for radiation dose reduction. DATE: March 17, 2021. COMPARISON: Chest radiograph March 17, 2021. CT chest December 03, 2020. INDICATION: 55-year-old female, chest pain. Elevated d-dimer. FINDINGS: There is no identified pulmonary nodule. There is no lung mass. There are multifocal mild linear opacities in the lungs likely relating to atelectasis. There is no pneumothorax. There is no pleural effusion. The central airways are patent. There is no identified pulmonary embolus. The heart is not enlarged. There is no pericardial effusion. There is no identified abnormally enlarged mediastinal, hilar, or axillary lymph node meeting CT size criteria for adenopathy. There is abnormal wall thickening in the region of the gastroesophageal junction and proximal stomach with adjacent inflammatory stranding. There are multiple prominent abnormally enlarged superior mesenteric lymph nodes on axial image 122 with one example measuring 11 mm in short axis. There are also abnormally enlarged lymph nodes the level of the lower esophagus on axial image 92 with one example measuring 10 mm in short axis. Additional limited evaluation of the imaged portions of the upper abdomen is unremarkable. There are degenerative changes of the spine. There is no identified acute bony abnormality. IMPRESSION: CT CHEST. 1. There is no identified pulmonary embolus. 2. Multifocal mild atelectasis in the lungs. 3. No identified acute cardiopulmonary abnormality. 4. Abnormal wall thickening in the region of the gastroesophageal junction and proximal stomach with multiple prominent abnormally enlarged superior mesenteric and paraesophageal lymph nodes most concerning for a GE junction or proximal gastric malignancy. Dictated by: Dictated on workstation # [id number]
--- NOTE | 2021-03-17 12:41 | ED Chest Pain ---
General Chief Complaint: Chest Pain Stated Complaint: HAS PACEMAKER/CP/BACK PAIN/NECK PAIN/SOB Nursing Triage Note: PT PRESENT TO ED VIA POV FROM HOME WITH COMPLAINTS OF CP STARTING TODAY THIS AM. PT REPORTS SOB AND CHILLS STARTING LAST NIGHT. Source: patient Exam Limitations: no limitations History of Present Illness Date Seen by Provider: Mar 17, 2021 Allergies and Home Medications Allergies Coded Allergies: Latex, Natural Rubber (Unverified Allergy, Intermediate, Shortness of Breath, 09/27/20) Patient Home Medication List Apixaban (Eliquis) 5 Mg Tablet, 5 MG PO DAILY, (Reported) Entered as Reported by: CINTHIA CLARK on 09/27/20 1147 Dexlansoprazole (Dexilant) 60 Mg Can., 60 MG PO DAILY, (Reported) Entered as Reported by: LEOBARDO CARLIN on 12/04/20 1427 Dicyclomine HCl (Dicyclomine HCl) 20 Mg Tablet, 20 MG PO Q6H Prescribed by: ANDREE BUTT on 12/13/20 1222 Famotidine (Pepcid) 20 Mg Tablet, 20 MG PO BID Prescribed by: KINGSLEY DAY on 03/17/21 1243 Fluticasone Propionate (Fluticasone Propionate) 16 Gm [place].susp, 1 SPRAY NSEACH BID PRN for CONGESTION, (Reported) Entered as Reported by: LEOBARDO CARLIN on 12/04/20 1427 Hydrocodone/Acetaminophen (Hydrocodone-Acetamin 5-325 mg) 1 Each Tablet, 1 TAB PO Q6H PRN for PAIN-MODERATE (5-7) Prescribed by: ANDREE BUTT on 01/16/21 1124 Levothyroxine Sodium (Levothyroxine Sodium) 100 Mcg Tablet, 100 MCG PO DAILY, (Reported) Entered as Reported by: LEOBARDO CARLIN on 12/04/20 1427 Ondansetron (Ondansetron Odt) 4 Mg Tab.rapdis, 4 MG PO Q6H PRN for NAUSEA/VOMITING-1ST LINE, (Reported) Entered as Reported by: LEOBARDO CARLIN on 12/04/20 1427 Ondansetron (Ondansetron Odt) 4 Mg Tab.rapdis, 4 MG PO Q8H Prescribed by: ANDREE BUTT on 12/13/20 1222 Oxycodone HCl (Oxycodone HCl) 5 Mg Tablet, 5-15 MG PO Q4H PRN for PAIN-SEVERE (8-10) Prescribed by: ANDERSON REA on 12/06/20 0941 Sotalol HCl (Sotalol) 80 Mg Tablet, 40 MG PO BID, (Reported) Entered as Reported by: LEOBARDO CARLIN on 12/04/20 1427 Sucralfate (Carafate) 1 Gm Tablet, 1 GM PO QID Prescribed by: KINGSLEY DAY on 03/17/21 1243 Past Lwhxunx-Vdsvfg-Qlbfud Hx Patient Social History Tobacco Use?: No Substance use?: No Alcohol Use?: Yes Alcohol Frequency: Rarely Pt feels they are or have been: No Immunizations Up To Date Tetanus Booster (TDap): Less than 5yrs PED Vaccines UTD: Yes Seasonal Allergies Seasonal Allergies: Yes Past Medical History Surgery/Hospitalization HX: SX: CARDIAC ABLATION, APPY, GALLBLADDER, DNC, PACEMAKER, HERNIA REPAIR Surgeries: Yes (DNC'S, LAPAROSCOPY, UVULA REMOVED, hernia repair) Appendectomy, Bladder Surgery, Gallbladder, Hysterectomy, Pacemaker, Tonsillectomy Cardiac: Yes (ABLATION, CHF) Atrial Fibrillation, Valvular Heart Disease Neurological: Yes Headaches /Migraines [employer]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 oz. kg; 31.00 BMI Method: Progress/Results/Core Measures Results/Orders Lab Results Laboratory Tests Test 03/17/21 09:26 03/17/21 09:29 03/17/21 09:45 Range/Units C-Reactive Protein High Sensitivity 5.83 H 0.00-0.50 MG/DL Influenza Type A (RT-PCR) Not Detected Not Detecte Influenza Type B (RT-PCR) Not Detected Not Detecte SARS-CoV-2 RNA (RT-PCR) Not Detected Not Detecte White Blood Count 12.1 H 4.3-11.0 10^3/uL Red Blood Count 4.88 3.80-5.11 10^6/uL Hemoglobin 13.7 11.5-16.0 g/dL Hematocrit 42 35-52 % Mean Corpuscular Volume 86 80-99 fL Mean Corpuscular Hemoglobin 28 25-34 pg Mean Corpuscular Hemoglobin Concent 33 32-36 g/dL Red Cell Distribution Width 13.4 10.0-14.5 % Platelet Count 261 130-400 10^3/uL Mean Platelet Volume 10.5 9.0-12.2 fL Immature Granulocyte % (Auto) 0 % Neutrophils (%) (Auto) 68 42-75 % Lymphocytes (%) (Auto) 23 12-44 % Monocytes (%) (Auto) 8 0-12 % Eosinophils (%) (Auto) 1 0-10 % Basophils (%) (Auto) 0 0-10 % Neutrophils # (Auto) 8.2 H 1.8-7.8 10^3/uL Lymphocytes # (Auto) 2.8 1.0-4.0 10^3/uL Monocytes # (Auto) 0.9 0.0-1.0 10^3/uL Eosinophils # (Auto) 0.1 0.0-0.3 10^3/uL Basophils # (Auto) 0.1 0.0-0.1 10^3/uL Immature Granulocyte # (Auto) 0.0 0.0-0.1 10^3/uL Prothrombin Time 14.2 12.2-14.7 SEC INR Comment 1.1 0.8-1.4 Activated Partial Thromboplast Time 35 24-35 SEC D-Dimer 0.83 H 0.00-0.49 UG/ML Sodium Level 137 135-145 MMOL/L Potassium Level 3.8 3.6-5.0 MMOL/L Chloride Level 103 98-107 MMOL/L Carbon Dioxide Level 22 21-32 MMOL/L Anion Gap 12 5-14 MMOL/L Blood Urea Nitrogen 15 7-18 MG/DL Creatinine 0.85 0.60-1.30 MG/DL Estimat Glomerular Filtration Rate 70 BUN/Creatinine Ratio 18 Glucose Level 104 70-105 MG/DL Calcium Level 9.6 8.5-10.1 MG/DL Corrected Calcium 9.3 8.5-10.1 MG/DL Magnesium Level 1.9 1.6-2.4 MG/DL Total Bilirubin 0.9 0.1-1.0 MG/DL Aspartate Amino Transf (AST/SGOT) 31 5-34 U/L Alanine Aminotransferase (ALT/SGPT) 65 H 0-55 U/L Alkaline Phosphatase 151 H 40-136 U/L Myoglobin 28.3 10.0-92.0 NG/ML Troponin I < 0.028 <0.028 NG/ML Total Protein 8.2 6.4-8.2 GM/DL Albumin 4.4 3.2-4.5 GM/DL My Orders Orders - KINGSLEY CURTIS MD Cbc With Automated Diff (03/17/21 09:39) Magnesium (03/17/21 09:39) Ekg Tracing (03/17/21 09:39) Comprehensive Metabolic Panel (03/17/21 09:39) Myoglobin Serum (03/17/21 09:39) Protime With Inr (03/17/21 09:39) Partial Thromboplastin Time (03/17/21 09:39) O2 (03/17/21 09:39) Monitor-Rhythm Ecg Trace Only (03/17/21 09:39) Ed Iv/Invasive Line Start (03/17/21 09:39) Troponin I (03/17/21 09:39) Hs C Reactive Protein (03/17/21 09:56) Covid 19 Inhouse Test (03/17/21 09:56) Influenza A And B By Pcr (03/17/21 09:56) Albuterol Inhaler (Albuterol) (03/17/21 10:06) Fibrin Degradation Products (03/17/21 10:06) Chest Pa/Lat (2 View) (03/17/21 10:10) Ct Angio Chest W (03/17/21 11:09) Iohexol Injection (Omnipaque 350 Mg/Ml 1 (03/17/21 11:30) Received Contrast (Hold Metformin- Contr (03/17/21 11:30) Ns (Ivpb) (Sodium Chloride 0.9% Ivpb Bag (03/17/21 11:30) Ondansetron Injection (Zofran Injectio (03/17/21 12:45) Lidocaine 2% Viscous 15 Ml (Xylocaine Vi (03/17/21 12:45) Antacid Suspension (Mylanta Suspension (03/17/21 13:00) Medications Given in ED Current Medications Medications Dose Ordered Sig/Giselle Route Start Time Stop Time Status Last Admin Dose Admin Al Hydrox/Mg Hydrox/Simethicone 30 ml ONCE ONCE PO 03/17/21 13:00 03/17/21 13:01 DC 03/17/21 12:57 30 ML Iohexol 100 ml ONCE ONCE IV 03/17/21 11:30 03/17/21 11:31 DC 03/17/21 11:37 90 ML Lidocaine HCl 15 ml ONCE ONCE PO 03/17/21 12:45 03/17/21 12:46 DC 03/17/21 12:57 15 ML Ondansetron HCl 4 mg ONCE ONCE IVP 03/17/21 12:45 03/17/21 12:46 DC 03/17/21 12:57 4 MG Sodium Chloride 100 ml ONCE ONCE IV 03/17/21 11:30 03/17/21 11:31 DC 03/17/21 11:37 80 ML Vital Signs/I&O 03/17/21 03/17/21 09:36 13:12 Temp 36.2 36.2 Pulse 67 65 Resp 18 18 B/P (MAP) 142/86 (104) 143/86 Pulse Ox 100 100 Blood Pressure Mean: 104 Initial ECG Impression Date: Mar 17, 2021 Initial ECG Impression Time: 09:25 Initial ECG Rate: 72 Initial ECG Rhythm: Normal Sinus Initial ECG Impression: Normal Comment Normal sinus rhythm with no ST elevation or depression. No abnormal intervals or axis deviation. Departure Impression Primary Impression: Atypical chest pain Additional Impression: Gastritis Qualified Codes: K29.50 - Unspecified chronic gastritis without bleeding Disposition: HOME, SELF-CARE Condition: Improved Departure-Patient Inst. Decision time for Depature: 12:38 Referrals: MARIYA VALLES MD, JONATHAN L MD (PCP/Family) Primary Care Physician ERIKA DE LA ROSA MD Patient Instructions: Chest Pain That Is Not Caused by the Heart (DC), Gastritis Add. Discharge Instructions: CT imaging showed abnormalities around your stomach and esophagus including inflammation and enlarged lymph nodes. This needs to be followed very closely by your surgeon and primary care provider. This is likely the cause of your pain and your splinting respirations. Please contact Dr. Valles's office on Thursday to arrange follow-up. Adhere to a noncarbonated clear liquid diet for the next 24 hours. Then avoid the following: Eating large meals, eating close to bedtime, caffeine, carbonation, chocolate, citrus fruits and juices, tomato products, mints, t obacco, alcohol, spicy foods, NSAID medications such as ibuprofen or naproxen, fatty or greasy foods, or anything else you know irritates your stomach. Add Pepcid (famotidine) 20 mg twice daily and Carafate (sucralfate) to your antiacid regimen until otherwise instructed by your provider. 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 You may continue using the inhaler for shortness of breath or wheezing if it is helpful. Call with questions or concerns. Return to the ER if you have worsening symptoms. All discharge instructions reviewed with patient and/or family. Voiced understanding. Scripts Sucralfate (Carafate) 1 Gm Tablet 1 GM PO QID, #120 TAB Dissolve or crush and mix into 5 to 10 mL of water to slurry. Take 30 minutes before eating or drinking at mealtimes and before bed. Prov: KINGSLEY CURTIS MD 03/17/21 Famotidine (Pepcid) 20 Mg Tablet 20 MG PO BID, #60 TAB Prov: KINGSLEY CURTIS MD 03/17/21 Copy Copies To 1: MARIYA VALLES MD Copies To 2: ERIKA DE LA ROSA MD, JOSHUA T MD Mar 17, 2021 12:41
[2021-03-17] MEDS ORDERED: FAMO-119 PO (12:43)
[2021-03-17] MEDS ORDERED: SUCR1TAB36 PO (12:43)
[2021-03-17] MEDS ORDERED: LIDOCAINE 2% VISCOUS 15 ML UDC PO ONE (12:45)
[2021-03-17] MEDS ORDERED: ONDANSETRON 4 MG/2 ML (SDV) Z0FRAN IVP ONE (12:45)
[2021-03-17] MEDS ORDERED: ANTACID SUSP 30 ML UDC (MYLANTA) PO ONE (13:00)
[2021-03-17 13:12] VITALS: BP 143/86
== END 2021-03-17 13:12 | disposition home or self-care (01) ==
LOC: EDUNIT# 09:22 → ER 09:24
DX: R07.89 Other chest pain (principal); K29.70 Gastritis, unspecified, without bleeding; I50.9 Heart failure, unspecified; G89.29 Other chronic pain; M54.9 Dorsalgia, unspecified; I48.91 Unspecified atrial fibrillation; E03.9 Hypothyroidism, unspecified; Z20.822 Contact with and (suspected) exposure to COVID-19; Z79.01 Long term (current) use of anticoagulants; Z79.891 Long term (current) use of opiate analgesic; Z79.899 Other long term (current) drug therapy; Z79.890 Hormone replacement therapy
CPT/HCPCS: 36415; 71046; 71275; 80053; 83735; 83874; 84484; 85025; 85379; 85610; 85730; 86141; 87636; 93005; 93041

== ENCOUNTER 2021-03-22 05:34 | Outpatient (CLI) | payer BC ==
[~2021-03-22] VITALS: Ht 162.6 cm; Wt 82.1 kg
[~2021-03-22 05:34] MED LIST changes: +FAMO-119 PO
[2021-03-22] MEDS ORDERED: MULT-1136 PO (11:55)
[2021-03-22] MEDS ORDERED: CLN.1T PO (11:55)
[2021-03-22] MEDS ORDERED: FURO20TA4 PO (11:55)
== END 2021-03-22 12:36 ==
LOC: PREOP 05:34
PROVIDERS: ATTEND Surgery
DX: Z01.818 Encounter for other preprocedural examination (principal)

== ENCOUNTER → 2021-04-24 | Outpatient (CLI) | payer BC ==
[~2021-04-24] MED LIST changes: +CLN.1T PO; +FURO20TA4 PO; +MULT-1136 PO; +RT-ALBUTEROL SULF 2.5 MG/3 ML PRE-MIX VIAL INH ONE
== END ==
LOC: RT 07:49
PROVIDERS: ATTEND Nurse Practitioner Family
DX: R06.00 Dyspnea, unspecified (principal)
CPT/HCPCS: 94060; 94726; 94729

== ENCOUNTER → 2021-04-30 | Outpatient (CLI) | payer BC ==
[~2021-04-30] MED LIST changes: -RT-ALBUTEROL SULF 2.5 MG/3 ML PRE-MIX VIAL INH ONE
--- NOTE | 2021-04-30 13:37 | Diagnostic Imaging Report ---
Exam: Nuclear medicine gastric emptying study. Date: April 30, 2021. Indication: 55-year-old female, dysphagia and abdominal pain. Comparison: CT abdomen and pelvis January 10, 2021. Findings: 1.04 mCi of technetium labeled sulfur colloid was administered. Subsequent anterior and posterior scintigraphic images of the stomach were obtained over a 4 hour timeframe for calculation of gastric emptying. At 1 hour, there is approximately 16% gastric emptying. At 2 hours, there is approximately 20% gastric emptying. At 3 hours, there is approximately 32% gastric emptying. At 4 hours, there is approximately 42% gastric emptying. Impression: 1. Findings consistent with delayed gastric emptying. Dictated by: Dictated on workstation # [id number]
== END ==
LOC: CARD 08:54
PROVIDERS: ATTEND Surgery
DX: R10.9 Unspecified abdominal pain (principal); R13.10 Dysphagia, unspecified
CPT/HCPCS: 78264; A9541

== ENCOUNTER → 2021-06-10 | Outpatient (CLI) | payer BC ==
[~2021-06-10] MED LIST changes: +DICY20TA PO; -DICY20TA10 PO
--- NOTE | 2021-06-10 08:47 | Diagnostic Imaging Report ---
EXAMINATION: Chest 2 view HISTORY: Shortness of breath. Anterior chest pain. COMPARISON: 03/17/2021. FINDINGS: The lung volumes are normal. No focal consolidation is seen. No large pleural effusion or pneumothorax is seen. The cardiomediastinal silhouette is normal in size and contour. Stable left pectoral pacemaker. No acute osseous abnormality is seen. IMPRESSION: 1. No acute pleuroparenchymal process. Dictated by: Dictated on workstation # [id number]
--- NOTE | 2021-06-10 08:52 | Diagnostic Imaging Report ---
EXAMINATION: US Lower Extremity Venous Duplex Left. TECHNIQUE: Multiple real-time grayscale images were obtained over the left lower extremity in various projections. Additional spectral analysis and color Doppler duplex images were also obtained. HISTORY: Left lower extremity pain and edema. COMPARISON: None available. FINDINGS: The left common femoral vein, deep femoral vein, superficial femoral vein and popliteal vein are patent with normal banegas scale and doppler appearance. There is normal respiratory variation and augmentation. IMPRESSION: 1. No DVT of the left lower extremity. Dictated by: Dictated on workstation # [id number]
== END ==
LOC: RAD 07:58
PROVIDERS: ATTEND Nurse Practitioner Family
DX: M79.662 Pain in left lower leg (principal); R07.89 Other chest pain; R06.02 Shortness of breath; R60.0 Localized edema
CPT/HCPCS: 71046

== ENCOUNTER 2021-06-13 10:54 | Emergency (ER) | payer BC ==
[~2021-06-13] VITALS: Ht 162.5 cm; Wt 86.6 kg
--- OUTSIDE RECORDS SUMMARY | 2021-06-13 11:00 | XMS REPORT | Encounter Summary ---
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 Role Phone Heriberto Nunn MD PCP Alan Jackson MD [phone] Thania Ruvalcaba MD [phone] Reason for Referral * Consult, Test & Treat (Routine) - New Request Diagnoses / Procedures Referred By Contact Referred To Conta ct Specialty Procedures REQUEST FOR CARDIOLOGY APPOINTMENT Clyde Ferguson MD [address] [place] [id number] Referral ID Status Reason Start Date Expiration Visits Vi sits Date Requested Authorized [id number] New Request 05/14/2021 05/14/2022 1 1 Reason for Visit * Reason Comments New Patient Atrial fibrillation * Consult, Test & Treat (Routine) - New Request Diagnoses / Procedures Referred By Contact Referred To Conta ct Specialty Diagnoses PAF (paroxysmal atrial fibrillation) ([facility]) Encounter for consultation Thania Ruvalcaba MD [address] [place] [address] Cardiology Referral ID Status Reason Start Date Expiration Visits Vi sits Date Requested Authorized [id number] New Request 05/03/2021 05/03/2022 1 1 Encounter Details Care Team Description Date Type Department Clyde Ferguson MD [address] [place] [id number] New Patient; Atrial fibrillation 05/14/2021 Office Visit Cardiology: [facility] [address], [address] [place] [address] Social History Date Tobacco Use [...] Date Recorded Female 11/07/2020 4:54 PM CDT Date Recorded COVID-19 Exposure Response 05/14/2021 7:45 AM CDT In the last month, have you been in contact with No / Unsure someone who was confirmed or suspected to have Coronavirus / COVID-19? documented as of this encounter Last Filed Vital Signs Reading Time Taken Comments Vital Sign 128/72 05/14/2021 7:52 AM CDT Blood Pressure 78 05/14/2021 7:52 AM CDT Pulse - - Temperature - - Respiratory Rate - - Oxygen Saturation - - Inhaled Oxygen Concentration 83.9 kg (185 lb) 05/14/2021 7:52 AM CDT Weight 162.6 cm (5' 4") 05/14/2021 7:52 AM CDT Height 31.76 05/14/2021 7:52 AM CDT Body Mass Index documented in this encounter Functional Status Date of Assessment Functional Status Response 11/29/2020 Does the patient have a hearing impairment: No documented as of this encounter Ordered Prescriptions Start Date End Date Prescription Sig Dispensed Refills 05/14/2021 furosemide (LASIX) 40 mg Take one-half 45 tablet 3 tablet tablet by mouth every morning. 05/14/2021 metoprolol XL (TOPROL XL) Take one 90 tablet 1 50 mg extended release tablet by tablet mouth daily. documented in this encounter Progress Notes * Clyde Ferguson MD - 05/14/2021 7:45 AM CDT Date of Service: 05/14/2021 Maria Fernanda Rondon is a 55 y.o. female. HPI I had the pleasure of seeing Maria Fernanda Rondon in the Atrial Fibrillation Cli ivan at [facility] for initial consultation for manag ement of atrial arrhthymias. As you may know, Maria Fernanda Rondon is a 55 y.o. female with a past medical hi story of paroxysmal atrial fibrillation with prior ablation, atypical atrial flu tter, hypertension, mixed hyperlipidemia, sinus node dysfunction s/p Medtronic P PM, history of DVT in her shoulder post heart cath w/ subsequent stroke, hypothy roidism, obesity, hiatal hernia s/p 2 surgeries. She was referred to the Atrial Fibrillation Clinic for consideration of repeat ablation. She has a history of chest pain and underwent a coronary angiogram in November 2020 t hat revealed normal coronary arteries. Her PMHx Also briefly includes: Paroxysmal Atrial Fibrillation; Atypical Atrial Flutter; Medtronic PPM Implantation(01/01/12); CHF; Hx MARIAN Ablation x3 (Most Rec ent in 2019 in [place]); S/P DCCV (11/2020); Essential Hypertension; Hyperlipide marta; Hypothyroidism; Non-Rheaumatic Carrie and Tricuspid Regurgitation; Sinus Nod e Dysfunction; Positive COVID-19 Infection; S/P hiatal hernia surgery She has a [id number] score of 3: Female; HTN; CHF To Review Detailed Updated PMHx see below. Recent CTA chest showed no PE; multifocal mild atelectasis in the lungs; no acut e cardiopulmonary abnormality; and abnormal wall thickening concerning for malig alli in the area of the GE junction and proximal stomach. Follow up EGD with bi opsy revealed unremarkable gastric antral mucosa and fragments of gastric mucosa with changes of mild chronic gastritis and no intestinal metaplasia identified. Referral source: Dr. Thania Ruvalcaba Primary care physician: Dr. Heriberto Nunn Primary auto self service station attendant: Dr. Thania Ruvalcaba Initial diagnosis of AF (date): 2010 Associated symptoms: palpitations, lightheaded/dizzy, fatigue, sometimes hyperte nsion, sometimes hypotension, nausea Family history: -Father - age 65 of [place], stroke -Mother - of cancer at age 50. -Paternal Grandfather - heart issues -Half-brother - of [place] AF Risk Factors HTN: Yes BMI: 31.76 --- Referral to weight loss clinic? (BMI greater than 30): Yes Sleep apnea: --- has has home sleep study that was inconclusive. O2 went into 80's. In-person sleep study ordered. Alcohol use: seldom Caffeine use:No except for tea Tobacco use: No Recent TSH: 6.77 (H) T4 0.8 (wnl) Rate Rate control medications (past and present): Toprol XL 25mg Well controlled on current regimen?: Yes Rhythm Required DCCV in the past: Yes x 2 04/2020 and 11/2020 Rhythm control medications (past and present): sotalol and flecainide (both inef fective) Any prior ablations: Yes x 3, 2013, 2015, 2018 Risk of Stroke CHADSVASC score: 5+ for female gender, hypertension, prior DVT & stroke, CAD, poss CHF Oral anticoagulation: Eliquis 5 mg twice daily Bleeding issues: No Referral for LAAO: Yes CV Risk Does patient have primary auto self service station attendant?: Yes Cardiovascular Studies Prior quality assurance monitor final: presence of Medtronic dual chamber pacemaker Echocardiogram within last 3 months? Date: 11/2020 LA size: 4.7cm EF: 70% 12/04/2020 - Cardiac Catheterization: ([facility]) Normal coronary system. Normal LV size, EF 50%, elevated LVEDP. I, Dr. Ferguson, have extensively reviewed outside records from Dr. Ruvalcaba's office DETAILED UPDATED PMHx: -- 2011 - s/p MDT Dual chamber PPM implant for SND -- 2013 - s/p LAAA ([place])details currently unavailable -- 2015 - s/p LAAA ([place])details currently unavailable -- 2019 - s/p LAAA ([facility] [place], [place]) by Cheo Hassan MD--SUMMARY: Nonsustaine d AFL induced with successful CTI RFA; pulmonary veins were isolated from prior procedure; "Redo WACA to widen the posterior aspect of electrical isolation of t he right pulmonary veins; "Roof Line" "box lesion set with isolation of the post erior wall; Easily Induced Atypical AFL consistent with clockwise perimitral ree ntry; post septal mitral isthmus ablation resulting in bidirectional isthmus blo ck. 4.Easily inducible, nonsustained typical atrial flutter with a distinctly separa te SVT mechanism from atrial fibrillation. 5. Successful linear radiofrequency catheter ablation of the cavotricuspid isthm us to address typical atrial flutter as a distinctly separate SVT mechanism, res ulting in bidirectional cavotricuspid isthmus block 6. Successful transseptal puncture using fluoroscopic and intracardiac echocardi ographic guidance. 7. All pulmonary veins remain electrically isolated from the prior catheter abla tion procedure. 8. Successful redo wide area antral circumferential pulmonary vein isolation to widen the posterior aspect of electrical isolation for the right pulmonary veins . 9. Successful linear radiofrequency catheter ablation of the left atrial dome (i .e., roof line) and posterior left atrium as additional ablation for AF to create a box, lesion set, resulting in electrical isolation of the supervisor plastics ior left atrium. 10. Easily inducible atypical atrial flutter with a distinctly separate SVT mech anism from atrial fibrillation or typical atrial flutter, consistent with clockw ise john-mitral reentry. 11. Successful linear ablation of the septal mitral isthmus, resulting in bidire ctional mitral isthmus block. 12. Bidirectional CTI block, electrical isolation of the posterior left atrium, and mitral isthmus block were all demonstrated and reconfirmed after appropriate waiting periods at the conclusion of the procedure. 13. No evidence for accessory pathway conduction. 14. No dual AV thang physiology. -- 08/06/2020 - CTA of Chest: ([facility]) Bilateral linear scarring without PE or other acute abnormality seen in the thor ax. -- 08/15/2020 - CTA of Chest: ([facility] No evidence of PE or thoracic aortic dissection. Moderate-sized hiatal hernia. No acute feature is detected. -- 08/23/2020 - ECHO: ([facility]) Normal LV function. LA enlargem ent. Mild TVR with mild to moderate pulmonary HTN. -- 11/28/2020 - Laparoscopic repair of recurrent hiatal hernia with mesh, rose fundoplication completed by Dr. Carol Kumar -- 12/03/2020 - [facility] No acute PE. Bilateral small pleural effusions with bibasilar atelectasis. Tra ce pericardial effusion. -- 12/04/2020 - Cardiac Catheterization: ([facility]) Normal coronary system. Normal LV size, EF 50%, elevated LVEDP. -- 12/04/2020 - [facility]) LV cavity size is normal. LV wall thickness is mildly to moderately increased. There is concentric hypertrophy. Systolic function is normal. EF is 70%. There were no regional wall motion abnormalities identified. Doppler parameters are consist ent with abnormal LV relaxation (grade I diastolic dysfunction) RV systolic fun ction is reduced. LA is mildly to moderately dilated, 4.7 cm. There is a right pleural effusion. Estimated PAP 25mmHg. -- 12/05/2020 - LENORE + DCCV: [facility]) Cisse ccessful electrical cardioversion terminating AFL/AF. -- 12/08/2020: Underwent Bariatric Surgery -- 03/17/2021 - [facility] There is no identified PE. Multifocal mild atelectasis in the lungs. No ident ified acute cardiopulmonary abnormality. Abnormal wall thickening in the region of the gastroesophageal junction and proximal stomach with multiple prominent a bnormally enlarged superior mesenteric and paraesophageal lumphnode most concern ing for a GE junction or proximal gastric malignancy. Ms. Rondon was educated regarding plan of care. She was instructed to call ou r office with any questions or concerns, as well as to notify us of any new or w orsening symptoms. She verbalized understanding. I appreciate the opportunity to participate in the care of your patient. Please do not hesitate to contact me directly if you have any questions or furth er insights into her care. I have scheduled her follow-up with me in 3 month(s) . An evidence-based tool (EBT) was reviewed with the patient prior to initiation/c ontinuation of oral anticoagulation for nonvalvular atrial fibrillation to ensur e that the patients health goals and preferences were covered. The EBT used was provided by the [employer]. Questions regarding this patient s specific risks for both stroke and major bleeding have been answered to her sa tisfaction. The goal of the Atrial Fibrillation Clinic at [facility] is to provide a multidiscipl inary approach to management of AF. Based on the above gathered information and in order to help the patient reach her goals, we recommend referral to [facility] management program I (Helen Montoya) spent over >45 minutes today for the visit including some or all of the following: preparing to see the patient, history/exam, placing orders, documenting the visit, communicating with care team, interpreting tests, and care coordination/communication. ASSESSMENT AND PLAN: -- Palpitations -- Fatigue -- Persistent Atrial Fibrillation -- Atypical Atrial Flutter -- Medtronic PPM Implantation (01/01/12) -- Hx MARIAN Ablation x3 (Most Recent in 2018) -- S/P DCCV (11/2020) -- CHF -- Essential Hypertension -- Hyperlipidemia -- Hypothyroidism -- Chronic Anticoagulation -- Non-Rheaumatic Carrie and Tricuspid Regurgitation -- Sinus Node Dysfunction -- Positive Prior COVID-19 Infection -- S/P Bariatric Surgery (12/08/2020) We had a lengthy discussion regarding Atrial Fibrillation, the pathophysiology, the mechanism, and therapeutic options. We discussed what I call the 3 R's: The Rhythm being abnormal; the Rate being Rapid; and the Risk of stroke. Regarding Rhythm-- Ms. Rondon has had atrial fibrillation apparently dating back to prior to 4, since 2013 was the first time she underwent an AFIB ablation. Unfortunately d o not have those records. That procedure apparently was repeated in 2015. For her recurrent A. fib she underwent a REDO AFIB Ablation in [place] in 2019. We do have that report. An extensive ablation was completed. Nonsustained typic al atrial flutter as described as well as left-sided mitral isthmus dependent at rial flutter. Extensive Ablation included a right-sided CTI ablation for AFL, a mitral isthmus ablation for atypical AFL, a "box lesion" of the left posterior wall including a roofline and a inferior line as well as a WACA around the previously isolated pulmonary veins. She had recurrent AFIB documented in November 2020. She ultimately underwent a cardio version. It sounds as though she was on SOTALOL at a very low dose. Although I a m not sure what her starting dose was. However that was discontinued due to "intolerance related to low blood pressure. At least per the patient's report. I do not have records to describe any commen ts regarding her sotalol or sotalol therapy or discontinuation. She states she is on Metoprolol and Clonidine but is not taking Sotalol. She has not taken Sotalol since March 2021. Based on the fact that she has had 3 AFIB Ablations and I have the details of th e third ablation, which describes a very extensive procedure, I anticipate she h as a significant amount of LA scar. Therefore unless she has documented recurrent AFL, I am not sure I would proceed with a fourth ablation at least at this time. HOWEVER, it is unclear whether she has had recurring ongoing issues with atrial fibrillation. That is her last documented episode was in November. Therefore she is not had any recurrence, at least documented through her device, since that time. HOWEVER, she clearly has atrial undersensing during atrial fibrillation and I an ticipate in fact she may have had recurring episodes that for that reason the de vice might not have detected. ALTHOUGH, when she is had atrial fibrillation she has had very rapid rates and d espite being initiated on Toprol anticipate her rates would still be rapid and s till crossed detection. It appears however as though her high ventricular rate detection was in the 180 beats a minute range and her A. fib mode switch detection is at 175 bpm. Therefore I have reprogrammed her Atrial Sensitivity down to 0.18 mV from 0.5 mV . I have also decreased her high atrial rate detection or mode switch detection of 150 bpm as well as her high ventricular rate detection to 150 bpm. She has not had documented heart rates on her heart rate histogram above 149 bpm and therefore I do not anticipate she will have crossover from sinus tachycardi a. Therefore I would like to see if she is having recurring episodes of atrial fibr illation with these programming changes before I even initiate antiarrhythmic dr ug therapy. We discussed the association between inadequately treated BP and AFIB and that i nadequately treated HTN will increase the risk of recurrent AFIB and make contro lling the AFIB much more difficult. Thus I emphasized the need to monitor her B P at home and ensure her BP stays within the target range discussed. She states the highest her BP has been in the last few months was 148/90 mmHg an d the lowest was 90/50 mmHg. If Initiating Antiarrhythmic Drug Therapy Options Would Include Flecainide, Sumeet syn, Multaq, Etc. Regarding Rate-- She is currently on Metoprolol. That was initiated after she h ad A. fib with significant RVR. We made programming changes in her device as described above. I also further in creased her metoprolol to improve rate control if she has recurrent AFIB. I hav e increased her to 50 mg daily. Regarding Risk of Stroke-- She remains on Eliquis 5 mg BID. Her [id number] score is 3 due to being female, having Essential Hypertension and Congestive Heart Failure. She denies any bleeding issues-blood in the urine, blood in the stool, toleratin g anticoagulation without obvious issue. We Reviewed That Data regarding a Watchman Device Being "superior" or even "equa l" to Eliquis is unavailable but the study is ongoing. Since she is "tolerating " Eliquis I have not recommended pursuing a watchman device at this time. Her Medtronic DDDR PPM is functioning normally. However she is having atrial un dersensing when she is in A. fib. See comments above. AGAIN, at this time we will improve her atrial sensitivity. We will decrease her high V rate detection to 150 bpm. We will change her AFIB sensiitivity to 150 b pm. For her daily palpitations we may consider issuing her an event monitor as well to see if they are related to the PVCs that she had documented through her devic e or recurrent AFIB. This would also give us the opportunity to quantify her PVCs. However we will not issue an event monitor just yet but instead we will see what follow-up through her device tells us in the future. See additional plan details below. PLAN: -- She will increase Toprol XL to 50 mg/d. -- She will decrease Furosemide to 20 mg/d. -- If she has increased swelling/edema she will alternate 40 mg/d and 20 mg/d. -- We will max out her atrial sensitivity. -- We will decrease her high V rate detection to 150 bpm. -- We will change her AFIB sensitivity to 150 bpm. -- I have asked her to Check her BP (Blood Pressure) daily and vary the time of day she checks it. -- We discussed that exercise helps with her blood pressure and she should try t o get at least 30 minutes of moderate intensity exercise at least 4 days a week. -- We discussed the importance of a low salt diet up to 2 grams daily. -- We discussed that her desired BP is less than 150 and less than 90. -- We discussed if her blood pressure is above the parameters described, to cont act us or her primary care doctor's office. -- If her BP is frequently above the parameters described above then she will ta ke Clonidine. -- Since she is on anticoagulation, I have asked her to monitor for any signs or symptoms of bleeding, including blood in the stool or urine, etc and to contact her PMD if any occurs. Total Time Today was 105 minutes in the following activities: Preparing to see t he patient, Obtaining and/or reviewing separately obtained history, Performing a medically appropriate examination and/or evaluation, Counseling and educating t he patient/family/caregiver, Ordering medications, tests, or procedures, Referri ng and communication with other health toddler caregiver (when not separately r eported) and Documenting clinical information in the electronic or other health record Ms. Rondon was educated regarding plan of care. She was instructed to call ou r office with any questions or concerns, as well as to notify us of any new or w orsening symptoms. She verbalized understanding. I appreciate the opportunity to participate in the care of your patient. Please do not hesitate to contact me directly if you have any questions or furth er insights into her care. I have scheduled her follow-up with me in 3 month(s) . Vitals: 05/14/21 0752 BP: 128/72 BP Source: Arm, Left Upper Patient Position: Sitting Pulse: 78 Weight: 83.9 kg (185 lb) Height: 1.626 m (5' 4") PainSc: Zero Body mass index is 31.76 kg/m. Past Medical History Patient Active Problem List Diagnosis Date Noted PVC (premature ventricular contraction) 05/14/2021 Gastroparesis 05/09/2021 Status post laparoscopic Rose fundoplication 12/07/2020 11/28/2020 - Laparoscopic repair of recurrent hiatal hernia with mesh, rose f undoplication completed by Dr. Carol Kumar Gastroesophageal reflux disease with hiatal hernia 11/28/2020 Hiatal hernia 10/17/2020 Recurrent; lap HH repair, ? Fundoplication 2019 in [place]. 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 03/25/2019 Typical atrial flutter (HCC) 02/12/2019 History of cardiac radiofrequency ablation 02/11/2019 Fatigue 01/15/2018 Hyperlipidemia 01/15/2018 Hypertension 01/15/2018 Non-rheumatic mitral regurgitation 01/15/2018 Non-rheumatic tricuspid valve insufficiency 01/15/2018 Numbness of both lower extremities 01/15/2018 Palpitation 01/15/2018 Encounter for checking and testing of cardiac pacemaker pulse generator (bat marquis) 10/19/2017 Medronic Pacemaker Sinus node dysfunction (HCC) 10/19/2017 Paroxysmal atrial fibrillation (HCC) 10/14/2017 2014 - s/p LAAA ([place]) 2015 - s/p LAAA ([place]) 2019 - s/p LAAA ([place], [place]) - ECHO: ([facility]) Normal LV function. LA enlargemen t. Mild TVR with mild to moderate pulmonary HTN. 12/04/2020 - ECHO: ([facility]) LV cavity si ze is normal. LV wall thickness is mildly to moderately increased. There is co ncentric hypertrophy. Systolic function is normal. EF is 70%. There were no r egional wall motion abnormalities identified. Doppler parameters are consistent with abnormal LV relaxation (grade I diastolic dysfunction) RV systolic functi on is reduced. LA is mildly to moderately dilated, 4.7 cm. There is a right pl eural effusion. Estimated PAP 25mmHg. 12/05/2020 - LENORE + DCCV: ([facility]) Succe ssful electrical cardioversion terminating AFL/AF. Fracture of left fibula 09/04/2017 Chest pain 01/04/2017 08/06/2020 - CTA of Chest: ([facility]) B ilateral linear scarring without PE or other acute abnormality seen in the thora x. 08/15/2020 - CTA of Chest: ([facility] No ev idence of PE or thoracic aortic dissection. Moderate-sized hiatal hernia. No a cute feature is detected. 12/03/2020 - CTA of Chest: ([facility]) No acute PE. Bilateral small pleural effusions with bibasilar atelectasis. Trace pericardial effusion. 12/04/2020 - Cardiac Catheterization: ([facility]) Normal coronary system. Normal LV size, EF 50%, elevated LVEDP. 03/17/2021 - CTA of Chest: ([facility]). Th ere is no identified PE. Multifocal mild atelectasis in the lungs. No identifi ed acute cardiopulmonary abnormality. Abnormal wall thickening in the region of the gastroesophageal junction and proximal stomach with multiple prominent abno rmally enlarged superior mesenteric and paraesophageal lumphnode most concerning for a GE junction or proximal gastric malignancy. Calculus of right kidney 01/04/2017 Review of Systems Constitutional: Negative. HENT: Negative. Eyes: Negative. Cardiovascular: Positive for palpitations. Respiratory: Negative. Endocrine: Negative. Hematologic/Lymphatic: Negative. Skin: Negative. Musculoskeletal: Negative. Gastrointestinal: Negative. Genitourinary: Negative. Neurological: Negative. Psychiatric/Behavioral: Negative. Allergic/Immunologic: Negative. All other systems reviewed and are negative. Cardiovascular Studies ECG today demonstrates an atrial paced rhythm with nonspecific ST-T changes. Full Device Check performed with reprogramming which I have extensively reviewed . Changes, if done, as discussed below and is detailed in other dictation/note. Divide programmed MVP on 60/130 mode switch at 175. Since October 2020 16 mode sw itch events, last 12/03/20. 73% A paced, 0.3% V paced. 29 V high rate events all dating back to the atrial arrhythmia episodes. Likely atrial undersensing noted. Cardiovascular Health Factors Vitals BP Readings from Last 3 Encounters: 05/14/21 128/72 02/14/21 (!) 142/88 12/27/20 132/80 Wt Readings from Last 3 Encounters: 05/14/21 83.9 kg (185 lb) 05/09/21 83.5 kg (184 lb) 03/06/21 80.7 kg (178 lb) BMI Readings from Last 3 Encounters: 05/14/21 31.76 kg/m 05/09/21 31.58 kg/m 03/06/21 30.54 kg/m Smoking Social History Tobacco Use Smoking Status Never Smoker Smokeless Tobacco Never Used Lipid Profile No results found for: CHOL No results found for: HDL No results found for: LDL No results found for: TRIG Blood Sugar No results found for: HGBA1C Glucose Date Value Ref Range Status 12/01/2020 90 70 - 100 MG/DL Final 11/30/2020 112 (H) 70 - 100 MG/DL Final 11/29/2020 148 (H) 70 - 100 MG/DL Final Physical Exam: General Appearance: well developed, well nourished, appears stated age, no acute distress Neck Veins: neck veins are not distended Auscultation/Percussion: lungs clear to auscultation, no rales or rhonchi, no wh eezing Cardiac Auscultation: S1, S2 normal, no rub, no gallop, murmurs Carotid Arteries: no bruits Lower Extremity : no lower extremity edema Neurologic Exam: neurological assessment grossly intact Problems Addressed Today Encounter Diagnoses Name Primary? Cardiac pacemaker in situ Yes Chest pain, unspecified type Paroxysmal atrial fibrillation (HCC) Palpitation snf (current) use of anticoagulants Hypothyroidism (acquired) PVC (premature ventricular contraction) Current Medications (including today's revisions) acetaminophen (TYLENOL) 500 mg tablet Take 1,000 mg by mouth every 6 hours a s needed for Pain. Max of 4,000 mg of acetaminophen in 24 hours. albuterol sulfate (VENTOLIN HFA) 90 mcg/actuation HFA aerosol inhaler Inhale 2 puffs by mouth into the lungs every 6 hours as needed. apixaban (ELIQUIS) 5 mg tablet twice daily. cloNIDine (CATAPRESS) 0.1 mg tablet Take 0.1 mg by mouth daily as needed (On ly takes if BP >150/90 mmHg). dexlansoprazole (DEXILANT) 60 mg capsule TAKE 1 CAPSULE BY MOUTH ONCE DAILY diazePAM (VALIUM) 5 mg tablet Take 5 mg by mouth at bedtime as needed for An xiety. dicyclomine (BENTYL) 20 mg tablet TAKE 1 TABLET BY MOUTH EVERY SIX HOURS FOR ABDOMINAL PAIN fluticasone propionate (FLONASE) 50 mcg/actuation nasal spray, suspension SQ UIRT 1 SPRAY ONCE A DAY IN EACH NOSTRIL furosemide (LASIX) 40 mg tablet Take one-half tablet by mouth every morning. levothyroxine (SYNTHROID) 100 mcg tablet Take 100 mcg by mouth daily 30 jaleel chidi before breakfast. metoclopramide HCL (REGLAN) 10 mg tablet metoclopramide 10 mg tablet TAKE 1 TABLET BY MOUTH EVERY SIX HOURS metoprolol XL (TOPROL XL) 50 mg extended release tablet Take one tablet by m outh daily. ondansetron (ZOFRAN ODT) 4 mg rapid dissolve tablet Dissolve one tablet by m outh every [address] on tongue to dissolve. oxyCODONE (ROXICODONE) 5 mg tablet Take one tablet to three tablets by mouth every 4 hours as needed rizatriptan (MAXALT-LIVING SUPERVISOR) 10 mg rapid dissolve tablet senna (SENOKOT) 8.6 mg tablet Take one tablet by mouth twice daily. simethicone (MYLICON) 80 mg chew tablet Chew one tablet by mouth every 6 wanda rs as needed. For gas pain Documentation recorded by Emilee Tamayo, acting as scribe for Clyde Ferguson M.D. documented in this encounter Miscellaneous Notes * Patient Instructions - Anay Hutson RN - 05/14/2021 7:45 AM CDT Check your BP (Blood Pressure) daily and vary the time of day you check it. Try to follow a low salt diet. Exercise helps with your blood pressure. Try to get at least 30 minutes of mode rate intensity exercise at least 4 days a week. Call our office or your PCP if your blood pressure remains at or above 150/90 mm Hg consistently. Take clonidine if very frequent. If you have questions about your blood pressure readings, please contact the off ice. -- Since you are on anticoagulation, monitor for any signs or symptoms of bleedi ng, including blood in the stool or urine, etc and to contact your Primary Care Physician if any occurs. INCREASE Toprol to 50mg daily. DECREASE Furosemide to 20mg daily. If you start to have increase in leg swelling or shortness of breath, you can change the furosemide to alternate 40mg and 20mg every other day. We would like you to follow up in 3 months In order to provide you the best care possible we ask that you follow up as jonny montague: For NON-URGENT questions please contact us through your [email or web address] account. For all medication refills please contact your pharmacy or send a request [email or web address]. For all questions that may need to be addressed urgently please call the nursing triage line at [phone] Thursday - Thursday 8-5 only. Please leave a detailed m essage with your name, date of , and reason for your call. To schedule an appointment call [phone]. Please allow 10-15 business days for the results of any testing to be reviewed. Please call our office if you have not heard from a nurse within this time frame . documented in this encounter Plan of Treatment Order Schedule Name Type Priority Associated Diag noses Ordered: 05/14/2021 ECG 12-LEAD ECG Routine Cardiac pacemak er in situ Chest pain, unspecified type Paroxysmal atrial fibrillation (HCC) Expected: 08/14/2021, Expires: DEVICE EVALUATION - PPM Device Check Routine Cardia c pacemaker in situ Chest pain, unspecified type Paroxysmal atrial fibrillation (HCC) documented as of this encounter Goals Goal Patient Associated Recent Progress Patient-Stat Aut hor Goal Type Problems ed? GOAL General On track (11/29/2020 No Silver montague, 11:20 AM CDT) JERMAN Jackson Note: Back to work and live with out pain documented as of this encounter Procedures Comments Procedure Name Priority Date/Time Associated Diag nosis ECG-SCAN 05/14/2021 12:00 AM CDT documented in this encounter Results * ECG-SCAN (05/14/2021 12:00 AM CDT) Narrative 05/14/2021 12:00 AM CDT Ordered by an unspecified provider. documented in this encounter Visit Diagnoses Diagnosis Cardiac pacemaker in situ - Primary Chest pain, unspecified type Paroxysmal atrial fibrillation (HCC) Atrial fibrillation Palpitation Palpitations snf (current) use of anticoagulan ts Long-term (current) use of anticoagulan ts Hypothyroidism (acquired) Unspecified hypothyroidism PVC (premature ventricular contraction) Other premature beats documented in this encounter Discontinued Medications Start Date End Date Medication Sig Discontinue Reason 05/14/2021 sotaloL (BETAPACE) 80 mg Take 40 mg Patient's tablet by mouth Choice twice daily. 05/14/2021 furosemide (LASIX) 40 mg Take 40 mg tablet by mouth every morning. documented as of this encounter Orders First Ordered Date Appointment Count Last Ordered Date REQUEST FOR CARDIOLOGY APPOINTMENT 1 08/2020 documented in this encounter Additional Health Concerns Noted Time Assessment 12/01/2020 9:34 AM CDT A fall risk assessment has been complet ed for the patient 05/14/2021 7:55 AM CDT PHQ-2 Depression Total Score: 0 documented as of this encounter Care Teams Start Date End Date Concrete Mixer Truck Driver Relationship Specialty 10/12/20 Heriberto Nunn MD PCP - [address] [address] 10/17/20 Alan Jackson MD CCP - [facility] [address] [facility] [address] [address] Continuity of carisa [facility] [address] [place] [address] 12/27/20 Thania Ruvalcaba MD CCP - Cardiovascul [address] [place] [address] Care Provider documented as of this encounter
--- OUTSIDE RECORDS SUMMARY | 2021-06-13 11:00 | XMS REPORT | Encounter Summary ---
Author Author [facility] Organization [facility] Address Unknown Phone Unavailable Care Team Providers Care Telephoto Installer Name Role Phone Heriberto Nunn MD PCP Alan Jackson MD [phone] Thania Ruvalcaba MD [phone] Encounter Details Care Team Description Date Type Department 06/03/2021 Hospital [facility] Encounter Remote Device Check [phone] Social History Date Tobacco Use Types Packs/Day [...] / COVID-19? documented as of this encounter Functional Status [...] nasal DAY IN EACH spray, suspension NOSTRIL 05/14/2021 furosemide (LASIX) 40 mg Take one-half 45 tablet 3 tablet tablet by mouth every morning. levothyroxine (SYNTHROID) Take 100 mcg 0 100 mcg tablet by mouth daily 30 minutes before breakfast. metoclopramide HCL metoclopramid 0 (REGLAN) 10 mg tablet e 10 mg tablet TAKE 1 TABLET BY MOUTH EVERY SIX HOURS 05/14/2021 metoprolol XL (TOPROL XL) Take one 90 tablet 1 50 mg extended release tablet by tablet mouth daily. 12/01/2020 ondansetron (ZOFRAN ODT) Dissolve one 30 tablet 0 4 mg rapid dissolve tablet by tablet mouth every [address] on tongue to dissolve. 12/07/2020 oxyCODONE (ROXICODONE) 5 Take one 40 tablet 0 mg tablet tablet to three tablets by mouth every 4 hours as needed 03/25/2021 rizatriptan (MAXALT-METEOROLOGIST IN CHARGE) 0 10 mg rapid dissolve tablet 12/01/2020 senna (SENOKOT) 8.6 mg Take one 0 tablet tablet by mouth twice daily. 12/01/2020 simethicone (MYLICON) 80 Chew one 30 tablet 0 mg chew tablet tablet by mouth every 6 hours as needed. For gas pain documented as of this encounter Discharge Disposition Code Departure Means Destination Disposition Home Home or Self Care documented in this encounter Plan of Treatment Date/Time Name Type Priority Associated Diag noses 06/03/2021 8:21 AM ARC WELDER DEVICE EVALUATION - Device Check Routine Sinus node dysfunction REMOTE PPM Remote (HCC) documented as of this encounter Goals Goal Patient Associated Recent Progress Patient-Stat Aut hor Goal Type Problems ed? GOAL General On track (11/29/2020 No Silver w, 11:20 AM CDT) JERMAN Jackson Note: Back to work and live with out pain documented as of this encounter Procedures Comments Procedure Name Priority Date/Time Associated Diag nosis DEVICE EVALUATION - Routine 06/03/2021 Sinus node dysfunction REMOTE PPM 8:21 AM ARC WELDER ([facility]) Procedure Note - Clyde Ferguson MD - 06/03/2021 8:21 AM ARC WELDER Title: Unschedule d Remote: Unknown * Patient transmitte d for unknown reason * Alerts or Events: 0 * Battery: OK, 1.67 yrs * Sensing, impedance and thresholds reviewed * Programmed parameters reviewed * Presenting rhythm: AP-VS 60's with some PVC's on the strip. * Heart Rate Histograms reviewed * No significan t changes noted HIGHWAY ADMINISTRATIVE ENGINEER 0.5% Title: Non-sustai carina Ventricula r Tachycardi a * Stored EGMs are consistent with or suggestive of SVT with run of brief SVT <3 seconds. Title: Unschedule d Remote * Reason: Patient sent in a remote due to increased chest tightness and palpitatio ns * Alerts or Events: No new episodes since last remote 05/31/21 * Battery: 19 months * Sensing, impedance and thresholds reviewed * Programmed parameters reviewed * Presenting rhythm: AP-VS 68 bpm * Heart Rate Histograms show good rate distributi on * No significan t changes noted documented in this encounter Visit Diagnoses Not on filedocumented in this encounter Additional Health Concerns Noted Time Assessment 12/01/2020 9:34 AM CDT A fall risk assessment has been complet ed for the patient 05/14/2021 7:55 AM CDT PHQ-2 Depression Total Score: 0 documented as of this encounter Care Teams Start Date End Date Telephoto Installer Relationship Specialty 10/12/20 Heriberto Nunn MD PCP - [address] [address] 10/17/20 Alan Jackson MD CCP - [facility] [address] Continuity of logy [place] [address] [place] [address] 12/27/20 Thania Ruvalcaba MD CCP - Cardiovascul [address] [place] [address] Care Provider documented as of this encounter
--- OUTSIDE RECORDS SUMMARY | 2021-06-13 11:00 | XMS REPORT | Encounter Summary ---
Author Author [facility] Organization [facility] Address Unknown Phone Unavailable Care Team Providers Care Motor Teacher Name Role Phone Heriberto Nunn MD PCP Alan Jackson MD [phone] Thania Ruvalcaba MD [phone] Reason for Visit * Reason Comments New Patient Encounter Details Care Team Description Date Type Department Carol Ziegler RN New Patient 05/12/2021 Patient Profile [facility]iology: [facility] [address] [facility] [facility] [address] [place] [address] Social History Date Tobacco Use [...] out pain documented as of this encounter Results * DEVICE EVALUATION - PPM (05/14/2021 8:54 AM CDT) Generator Medtronic MURJ Electrical Systems Designer Generator [id number] MURJ Serial # Generator Model Adapta ADDR01 MURJ # Generator [id number] MURJ Implnat Date Pacemaker no MURJ Dependant On yes MURJ Anticoagulation EP SYSTEM MRI no MURJ CONDITIONAL Device Type IPG MURJ Modality Anatomical Region Laterality MAC CV Heart Rhythm Specimen Narrative MURJ - 05/24/2021 12:18 PM PLATFORM ARCHITECT Title: Normal In-Office: No Events # [facility] Full check programming for dual chamber Medtronic PPM. Device/lead function: as programmed Battery: 7-43mos Presenting EGM shows AP-VS 60bpm Underlying rhythm: -VS 56bpm New events: No new events since November 2020 <1% RV paced 72.7% AP Programming changes: Atrial and Ventricular Amplitude changed to 2.5V maintaining a 2x safety margin Title: Premature Ventricular Contraction (PVC) * PVC singles 31,853 and PVC runs 4,548 since 11/09/20 Title: Premature Atrial Contraction (PAC) * PAC runs 1,390 since 11/09/2020 Title: Tachycardia: AF * Stored EGMs are consistent with or suggestive of Atrial Fibrillation * 29 VHR, 5 AHR, 16 mode switch episodes since 11/09/20. Available marker channels and EGMs suggest AFib with some possible atrial undersensing noticed with EGMs. Max A rates reported 186-272bpm. Max V rates 178-282bpm. Max V rates 167-274bpm * Last/Longest Episode on 12/04/20 @ 0747 lasting 4hr 27min with Max A rate 272bpm. Max V rate 167bpm * V rates >100bpm during AT/AF: 95% * V rates >140bpm during AT/AF: 50% Title: Device Reprogrammed Device reprogrammed per Dr. Ferguson, changes are listed below: * Atrial sensitivity to 0.18mV from 0.5mV * AHR Detection changed to 150bpm * VHR Detection changed to 150bpm Performing Organization Address City/State/ZIP Code [place] Number MURJ documented in this encounter Visit Diagnoses Diagnosis Cardiac pacemaker in situ - Primary Chest pain, unspecified type Paroxysmal atrial fibrillation (HCC) Atrial fibrillation Cardiac pacemaker in situ documented in this encounter Additional Health Concerns Noted Time Assessment 12/01/2020 9:34 AM CDT A fall risk assessment has been complet ed for the patient documented as of this encounter Care Teams Start Date End Date Motor Teacher Relationship Specialty 10/12/20 Heriberto Nunn MD PCP - [address] [id number] 10/17/20 Alan Jackson MD CCP - [facility] [address] Continuity of logy [place] [address] [place] [address] 12/27/20 Thania Ruvalcaba MD CCP - Cardiovascul [address] [place] [address] Care Provider documented as of this encounter
--- OUTSIDE RECORDS SUMMARY | 2021-06-13 11:00 | XMS REPORT | Encounter Summary ---
Author Author [facility] Organization [facility] Address Unknown Phone Unavailable Care Team Providers Care Tetryl Screen Operator Name Role Phone Heriberto Nunn MD PCP Alan Jackson MD [phone] Thania Ruvalcaba MD [phone] Encounter Details Care Team Description Date Type Department Arrived 06/13/2021 Hospital Cardiovascular [facility] Encounter Remote Device Check [phone] Social History Date Tobacco Use Types Packs/Day [...] as of this encounter Plan of Treatment Date/Time Name Type Priority Associated Diag noses 06/13/2021 10:11 AM CRUSHER WET GROUND MICA DEVICE EVALUATION - Device Check Routine Sinus [...] Associated Diag nosis DEVICE EVALUATION - Routine 06/13/2021 Sinus node dysfunction REMOTE PPM 10:11 AM CRUSHER WET GROUND MICA ([facility]) Procedure Note - Clyde Ferguson MD - 06/13/2021 10:11 AM CRUSHER WET GROUND MICA Title: Unschedule d Remote: Unknown * Patient transmitte d for unknown reason. Unschedule d [facility] ppm transmissi on received today. I called and LM asking patient to call back and let us know why she sent an unschedule d transmissi on. I told her the next scheduled one was 08/16/21. * Alerts or Events: 0 * Battery: OK, 1.58 yrs * Sensing, impedance and thresholds reviewed * Programmed parameters reviewed * Presenting rhythm AP-VS 67 bpm * Heart Rate Histograms reviewed * No significan t changes noted Title: Tachycardi a: Mode Switch * 3 mode switches all < 30 seconds each. No episode list or egms available for mode switch episode < 30 seconds in this device. Title: Tachycardi a: High Ventricula r Rate * 2 V High Rate episodes, longest 3 seconds. Rates 150 to 180 bpm. Egms showed 1:1 AT. documented in this encounter Visit Diagnoses Not on filedocumented in this encounter Additional Health Concerns Noted Time Assessment 12/01/2020 9:34 AM CDT A fall risk assessment has been complet ed for the patient 05/14/2021 7:55 AM CDT PHQ-2 Depression Total Score: 0 documented as of this encounter Care Teams Start Date End Date Tetryl Screen Operator Relationship Specialty 10/12/20 Heriberto Nunn MD PCP - [address] [phone] 10/17/20 Alan Jackson MD [facility] - [facility] [address] [place] [address] [address] [address] Care Provider [place], [place] [address] 12/27/20 Thania Ruvalcaba MD CCP - Cardiovascul [address] [place] [address] Care Provider documented as of this encounter
--- OUTSIDE RECORDS SUMMARY | 2021-06-13 11:00 | XMS REPORT | Encounter Summary ---
Author Author [facility] Organization [facility] Address Unknown Phone Unavailable Care Team Providers Care Blanket Binder Name Role Phone Heriberto Nunn MD PCP Alan Jackson MD [phone] Thania Ruvalcaba MD [phone] Encounter Details Care Team Description Date Type Department 05/14/2021 Travel Social History Date Tobacco Use Types Packs/Day [...] encounter Care Teams Start Date End Date Blanket Binder Relationship Specialty 10/12/20 Heriberto Nunn MD PCP - [address] [address] 10/17/20 Alan Jackson MD CCP - [facility] [address] Continuity of logy [address] [place] [address] 12/27/20 Thania Ruvalcaba MD CCP - Cardiovascul [address] [place] [address] Care Provider documented as of this encounter
--- OUTSIDE RECORDS SUMMARY | 2021-06-13 11:00 | XMS REPORT | Encounter Summary ---
Author Author [facility] Organization [facility] Address Unknown Phone Unavailable Care Team Providers Care Cigar Head Holer Name Role Phone Heriberto Nunn MD PCP Alan Jackson MD [phone] Thania Ruvalcaba MD [phone] Encounter Details Care Team Description Date Type Department Clyde Ferguson MD [address] [facility] [address] [place], [place] [id number] 05/14/2021 Hospital Cardiology: [facility] [address] [facility] [address] [place] [address] Social History Date Tobacco Use [...] every 4 hours as needed 03/25/2021 rizatriptan (MAXALT-SPEED WINDER) 0 10 mg rapid dissolve tablet 12/01/2020 [...] Date/Time Associated Diag nosis DEVICE EVALUATION - PPM Routine 05/14/2021 Cardia c pacemaker in situ 8:54 AM CDT documented in this encounter Results * DEVICE EVALUATION - PPM (05/14/2021 8:54 AM CDT) Generator Medtronic MURJ Early Childhood Aide Classroom Generator [id number] MURJ Serial # Generator Model Adapta ADDR01 MURJ # Generator [id number] MURJ Implnat Date Pacemaker no MURJ Dependant On yes MURJ Anticoagulation EP SYSTEM MRI no MURJ CONDITIONAL Device Type IPG MURJ Modality Anatomical Region Laterality MAC CV Heart Rhythm Specimen Narrative MURJ - 05/24/2021 12:18 PM STEM ROLLER Title: Normal In-Office: No Events # [facility] [...] Visit Diagnoses Diagnosis Cardiac pacemaker in situ documented in this encounter Additional Health Concerns Noted Time Assessment 12/01/2020 9:34 AM CDT A fall risk assessment has been complet ed for the patient 05/14/2021 7:55 AM CDT PHQ-2 Depression Total Score: 0 documented as of this encounter Care Teams Start Date End Date Cigar Head Holer Relationship Specialty 10/12/20 Heriberto Nunn MD PCP - [place] [address] [place], [place] [phone] 10/17/20 Alan Jackson MD CCP - Gastro[facility] [address] Continuity of logy [address] Care Provider [place], [place] [address] 12/27/20 Thania Ruvalcaba MD CCP - Cardiovascul [address] [place] [address] Care Provider documented as of this encounter
--- OUTSIDE RECORDS SUMMARY | 2021-06-13 11:00 | XMS REPORT | Encounter Summary ---
Author Author [facility] Organization [facility] Address Unknown Phone Unavailable Care Team Providers Care Welfare Adviser Name Role Phone Heriberto Nunn MD PCP Alan Jackson MD [phone] Thania Ruvalcaba MD [phone] Reason for Visit * Reason Onset Date Comments Remote ICD/PM Check 06/13/2021 Encounter Details Care Team Description Date Type Department Red Trivedi Remote ICD/PM Check 06/13/2021 Telephone Cardiology: [facility], [id number] [place] [address]. [address], [address] [place] [address] Social History Date Tobacco Use Types Packs/Day [...] encounter Miscellaneous Notes * Telephone Encounter - ShikhaRed - 06/13/2021 10:04 AM SHEEP HERDER Unscheduled Carelink ppm transmission received today. I called and LM asking loli alejandra to call back and let us know why she sent an unscheduled transmission. I to ld her the next scheduled one was 08/16/21. P HERDER documented in this encounter Plan of Treatment [...] encounter Care Teams Start Date End Date Welfare Adviser Relationship Specialty 10/12/20 Heriberto Nunn MD PCP - [address] [address] 10/17/20 Alan Jackson MD CCP - [facility] [address] Continuity of logy [place] [address] [place] [address] 12/27/20 Thania Ruvalcaba MD CCP - Cardiovascul [address] [place] [address] Care Provider documented as of this encounter
--- OUTSIDE RECORDS SUMMARY | 2021-06-13 11:00 | XMS REPORT | Encounter Summary ---
Author Author [facility] Organization [facility] Address Unknown Phone Unavailable Care Team Providers Care Department Clerk Name Role Phone Heriberto Nunn MD PCP Alan Jackson MD [phone] Thania Ruvalcaba MD [phone] Encounter Details Care Team Description Date Type Department Joo Peter RN Sinus node dysfunction (HCC) (Primary Dx ) 05/16/2021 Orders Only Cardiology: [facility] [address] [place] [id number] Social History Date Tobacco Use Types Packs/Day [...] Priority Associated Diag noses 06/03/2021 8:21 AM HYPERBARIC TECH DEVICE EVALUATION - Device Check Routine Sinus node dysfunction REMOTE PPM Remote ([facility]) 06/13/2021 10:11 AM HYPERBARIC TECH DEVICE EVALUATION - Device Check Routine Sinus node dysfunction REMOTE PPM Remote ([facility]) Order Schedule Name Type Priority Associated Diag noses 150 Occurrences starting 05/16/2021 unti l 05/16/2022, 3 completed DEVICE EVALUATION - Device Check Routine Sinus node dysfunction REMOTE PPM Remote ([facility]) documented as of this encounter Goals Goal Patient Associated Recent Progress Patient-Stat Aut hor Goal Type Problems ed? GOAL General On track (11/29/2020 No Kyetom w, 11:20 AM CDT) JERMAN Jackson Note: Back to work and live with out pain documented as of this encounter Procedures Comments Procedure Name Priority Date/Time Associated Diag nosis DEVICE EVALUATION - Routine 06/13/2021 Sinus node dysfunction REMOTE PPM 10:11 AM HYPERBARIC TECH ([facility]) Procedure Note - Clyde Ferguson MD - 06/13/2021 10:11 AM HYPERBARIC TECH Title: Unschedule d Remote: Unknown * Patient [...] to 180 bpm. Egms showed 1:1 AT. DEVICE EVALUATION - Routine 06/03/2021 Sinus node dysfunction REMOTE PPM 8:21 AM HYPERBARIC TECH ([facility]) Procedure Note - Clyde Ferguson MD - 06/03/2021 8:21 AM HYPERBARIC TECH Title: Unschedule d Remote: Unknown * Patient transmitte d for unknown reason * Alerts or Events: 0 * Battery: OK, 1.67 yrs * Sensing, impedance and thresholds reviewed * Programmed parameters reviewed * Presenting rhythm: AP-VS 60's with some PVC's on the strip. * Heart Rate Histograms reviewed * No significan t changes noted YARN DYER 0.5% Title: Non-sustai carina Ventricula r Tachycardi [...] on * No significan t changes noted DEVICE EVALUATION - Routine 05/29/2021 Sinus node dysfunction REMOTE PPM CHARGES 5:16 PM HYPERBARIC TECH ([facility]) documented in this encounter Results * DEVICE EVALUATION - REMOTE PPM CHARGES (05/29/2021 5:16 PM HYPERBARIC TECH) Device Type IPG MURJ Generator Chroma Energytronic MURJ Outdoor Emergency Care Technician Generator Model ADDR01 MURJ # Generator [id number] MURJ Serial # EP DEVICE 05/14/21: Requested remote MURJ PATIENT NOTES transfer from Via [facility] [phone]. -bh Pacemaker no MURJ Dependant On yes MURJ Anticoagulation EP SYSTEM MRI no MURJ CONDITIONAL Modality Anatomical Region Laterality MAC CV Heart Rhythm Specimen Narrative MURJ - 05/24/2021 12:18 PM HYPERBARIC TECH Title: Normal Remote: No Events # Initial Remote * Normal Device Function * Alerts or events: None since in office check on 05/14/21 * Battery: OK, 1.75 yrs * Sensing, impedance and thresholds reviewed * Programmed parameters reviewed * Presenting rhythm reviewed: APVS ~60 BPM * Heart Rate Histograms reviewed: good rate distribution * No significant changes noted Additional Notes: ASVS 34.7% APVS 64.7% Performing Organization Address City/State/ZIP Code [place] Number MURJ documented in this encounter Visit Diagnoses Diagnosis Sinus node dysfunction (HCC) - Primary Sinoatrial node dysfunction documented in this encounter Additional Health Concerns Noted Time Assessment 12/01/2020 9:34 AM CDT A fall risk assessment has been complet ed for the patient 05/14/2021 7:55 AM CDT PHQ-2 Depression Total Score: 0 documented as of this encounter Care Teams Start Date End Date Department Clerk Relationship Specialty 10/12/20 Heriberto Nunn MD PCP - [address] [id number] 10/17/20 Alan Jackson MD CCP - [facility] [address] Continuity of logy [address] [place] [address] 12/27/20 Thania Ruvalcaba MD CCP - Cardiovascul [address] [place] [address] Care Provider documented as of this encounter
--- OUTSIDE RECORDS SUMMARY | 2021-06-13 11:00 | XMS REPORT | Clinical Summary ---
Author Author [facility] Organization [facility] Address Unknown Phone Unavailable Care Team Providers Care Home Care Rn Name Role Phone Heriberto Nunn MD PCP Alan Jackson MD [phone] Thania Ruvalcaba MD [phone] Source Comments Some departments are not documenting in the electronic medical record. If you d o not see the information that you expected, contact Release of Information in [facility] [employer] Information Management department at [phone] for further assistan ce in locating additional records.[facility] Allergies Comments Active Allergy Reactions Severity Noted [...] mouth daily 30 minutes before breakfast. Active diazePAM (VALIUM) 5 mg Take 5 mg by 0 tablet mouth at bedtime as needed for Anxiety. Active simethicone (MYLICON) 80 Chew one 30 tablet 0 0 12/01/202 mg chew tablet tablet by 1 mouth every 6 hours as needed. For gas pain Active senna (SENOKOT) 8.6 mg Take one 0 12/01/2 02 tablet tablet by 1 mouth twice [...] PAIN Active fluticasone propionate SQUIRT 1 0 12/13/2 02 (FLONASE) 50 SPRAY ONCE A 1 mcg/actuation nasal DAY IN EACH spray, suspension NOSTRIL Active metoclopramide HCL metoclopramid 0 (REGLAN) 10 mg tablet e 10 mg tablet TAKE 1 TABLET BY MOUTH EVERY SIX HOURS Active rizatriptan (MAXALT-BOXING PROMOTER) 0 10 mg rapid dissolve 1 tablet Active metoprolol XL (TOPROL XL) Take one 90 tablet 1 50 mg extended release tablet by 1 tablet mouth daily. Active furosemide (LASIX) 40 mg Take one-half 45 tablet 3 tablet tablet by 1 mouth every morning. 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 2013 - s/p LAAA ([place], [place]) 2015 - s/p LAAA ([place]) 2019 - s/p LAAA ([place], [place]) - ECHO: ([facility]) Normal LV function. LA enlargement. Mild TVR with mild to mod erate pulmonary HTN. 12/04/2020 - ECHO: ([facility]) LV cavity size is normal. LV wall thickne ss is mildly to moderately increased. There is concentric hypertr ophy. Systolic function is normal. EF is 70%. There were no regional wall motion abnormalities identified. Doppler parameters are consistent with abnormal LV relaxation (grade I diastolic dysfunction) RV systolic fun ction is reduced. LA is mildly to moderately dilated, 4.7 cm. There is a right pleural effusion. Estimated PAP 25mmHg. 12/05/2020 - [place] + DCCV: ([place] [facility]) Successful electrical cardioversion ter minating AFL/AF. Fracture of left fibula 09/04/2017 Chest pain 01/04/2017 Overview: Formatting of this note might be differ ent from the original. 08/06/2020 - CTA of Chest: ([place] [facility]) Bilateral linear scarring without PE or other acute abnormality seen in the thorax. 08/15/2020 - CTA of Chest: ([place] [facility] No evidence of PE or thoracic aortic di ssection. Moderate-sized hiatal hernia. No acute feature is detected. 12/03/2020 - CTA of Chest: ([place] [facility]) No acute PE. Bilateral small pleural e ffusions with bibasilar atelectasis. Trace pericardial effusio n. 12/04/2020 - Cardiac Catheterization: ([place] [facility]) Normal coronary system . Normal LV size, EF 50%, elevated LVEDP. 03/17/2021 - CTA of Chest: ([place] [facility]). There is no identified PE. Mult ifocal mild atelectasis in the lungs. No identified acute cardiopulmo nary abnormality. Abnormal wall thickening in the region of the gastroe sophageal junction and proximal stomach with multiple prominent abnorma lly enlarged superior mesenteric and paraesophageal lumphnode most concernin g for a GE junction or proximal gastric malignancy. Calculus of right kidney 01/04/2017 Encounters Care Team Description Date Type Specialty Arrived 06/13/2021 Hospital Cardiology Encounter Red Trivedi Remote ICD/PM Check 06/13/2021 Telephone Cardiology 06/03/2021 Hospital Cardiology Encounter 05/16/2021 Hospital Cardiology Encounter Joo Peter RN Sinus node dysfunction (HCC) (Primary Dx ) 05/16/2021 Orders Only Cardiology Clyde Ferguson MD New Patient; Atrial fibrillation 05/14/2021 Office Visit Cardiology Clyde Ferguson MD 05/14/2021 Hospital Cardiology Encounter 05/14/2021 Travel Carol Ziegler RN New Patient 05/12/2021 Patient Profile Cardiology Carol Kumar MD Status post laparoscopic Rose fundopli cation (Primary Dx); Gastroesophageal reflux disease with hiatal hernia; Gastroparesis 05/09/2021 Office Visit Bariatrics Telehealth Carol Kumar MD Abdominal pain 05/08/2021 Telephone Bariatrics Dahlia Mercado Records Request 05/03/2021 Telephone Cardiology Amparo Oneil BSN Atrial fibrillation (AFC) 05/03/2021 Documentation Cardiology Yuridia Tejada RN Follow Up 05/02/2021 Telephone Cardiology 04/30/2021 Hospital Radiology Encounter Carol Kumar MD Post-hospital Follow Up 03/19/2021 Telephone Bariatrics 03/17/2021 Hospital Radiology Encounter 03/17/2021 Hospital Radiology Encounter from Last 3 Months Surgical History Surgery [...] MESH performed by Carol Kumar MD at [facility] Medical devices from this surgery are i n the Implants section. UPPER GASTROINTESTINAL 11/28/2020 Esophagus/N/A ESOPHAG OGASTRODUODENOSCOPY WITH SPECIMEN ENDOSCOPY COLLECTION BY BRUSHING/ WAS IMELDA performed by Carol Kumar MD at [facility] [place] Medical devices from this surgery are i n the Implants section. ELECTROCARDIOGRAM DOPPLER ECHOCARDIOGRAPHY RHYTHM DEVICE PLACEMENT CARDIOVERSION TRANSESOPHAGEAL ECHO CARDIAC CATHERIZATION Medical History Medical History Date Comments GERD (gastroesophageal reflux disease) Hypothyroidism Atrial fibrillation (HCC) Reina esophagus Endometriosis History of 2019 novel coronavirus 06/2020 disease (COVID-19) Hiatal hernia 10/17/2020 Recurrent; lap HH r epair, ? Fundoplication 2019 in [place]. Pacemaker 2011 CVA (cerebral vascular accident) (HCC) 2011 Left side weakness Congestive heart disease (HCC) Lightheadedness Dizziness MELISSA (obstructive sleep apnea) Heart attack (HCC) 12/03/2020 [facility] Gastroparesis 05/09/2021 Family History Medical History Relation Name Comments Heart Disease Father Hypertension Father Stroke Father Heart Disease Maternal Grandfather Cancer Maternal Grandmother Cancer Mother Hypertension Mother Heart Disease Paternal Grandfather Cancer Paternal Grandmother Relation Name Status Comments Father Maternal Grandfather Maternal Grandmother Mother Paternal Grandfather Paternal Grandmother Social History Date Tobacco Use Types Packs/Day [...] or suspected to have Coronavirus / COVID-19? Last Filed Vital Signs Reading Time Taken Comments Vital Sign 128/72 05/14/2021 7:52 AM CDT Blood Pressure 78 05/14/2021 7:52 AM CDT Pulse 36.6 C (97.9 F) 12/07/2020 11:21 AM CDT Temperature - - Respiratory Rate 99% 12/07/2020 11:21 AM CDT Oxygen Saturation - - Inhaled Oxygen Concentration 83.9 kg (185 lb) 05/14/2021 7:52 AM CDT Weight 162.6 cm (5' 4") 05/14/2021 7:52 AM CDT Height 31.76 05/14/2021 7:52 AM CDT Body Mass Index Plan of Treatment Health Maintenance Due Date Last Done Comments HIV SCREENING 1982 DTAP/TDAP VACCINES (1 - 1985 Tdap) HEPATITIS C SCREENING 1985 PHYSICAL (COMPREHENSIVE) 1985 EXAM CERVICAL CANCER SCREENING 1988 BREAST CANCER SCREENING 2007 COLORECTAL CANCER 2017 SCREENING SHINGLES RECOMBINANT 2017 VACCINE (1 of 2) INFLUENZA VACCINE 02/10/2021 Goals Goal Patient Associated Recent Progress Patient-Stat Aut hor Goal Type Problems ed? GOAL General On track (11/29/2020 No Silver [place], 11:20 AM CDT) JERMAN Jackson Note: Back to work and live with out pain Implants Device Identifier Shelf Expiration Date Model / Serial / L ot Implanted Type Area Manufactur er 05/12/2021 [id number] / [id number] / [id number] Graft Soft Tissue 10x7cm Matristem N/A: Abdomen [employer] Porcine Urinary Bladder Dup1 - [id number] Implanted: Qty: 1 on 11/28/2020 by Carol Kumar MD at [facility] Procedures Comments Procedure Name Priority Date/Time Associated Diag nosis DEVICE EVALUATION - Routine 06/13/2021 Sinus node dysfunction REMOTE PPM 10:11 AM MANAGING JEWELER ([facility]) Procedure Note - Clyde Ferguson MD - 06/13/2021 10:11 AM MANAGING JEWELER Title: Unschedule d Remote: Unknown * Patient [...] Sinus node dysfunction REMOTE PPM 8:21 AM MANAGING JEWELER ([facility]) Procedure Note - Clyde Ferguson MD - 06/03/2021 8:21 AM MANAGING JEWELER Title: Unschedule d Remote: Unknown * Patient transmitte d for unknown reason * Alerts or Events: 0 * Battery: OK, 1.67 yrs * Sensing, impedance and thresholds reviewed * Programmed parameters reviewed * Presenting rhythm: AP-VS 60's with some PVC's on the strip. * Heart Rate Histograms reviewed * No significan t changes noted STATION INSPECTOR 0.5% Title: Non-sustai carina Ventricula r Tachycardi [...] node dysfunction REMOTE PPM CHARGES 5:16 PM MANAGING JEWELER ([facility]) DEVICE EVALUATION - PPM Routine 05/14/2021 Cardia c pacemaker in situ 8:54 AM CDT ECG-SCAN 05/14/2021 12:00 AM CDT NM MISC EXTERNAL IMAGING Routine 04/30/2021 12:00 AM CDT GENERAL RAD CHEST Routine 03/17/2021 EXTERNAL IMAGING 12:[address] CHEST EXTERNAL IMAGING Routine 03/17/2021 12:00 AM CDT from Last 3 Months Results * DEVICE EVALUATION - REMOTE PPM CHARGES (05/29/2021 5:16 PM MANAGING JEWELER) Device Type IPG MURJ Generator Medtronic MURJ Dining Car Hop Generator Model ADDR01 MURJ # Generator [id number] MURJ Serial # EP DEVICE 05/14/21: Requested remote MURJ PATIENT NOTES transfer from Via [facility] [phone]. -bh Pacemaker no MURJ Dependant On yes MURJ Anticoagulation EP SYSTEM MRI no MURJ CONDITIONAL Modality Anatomical Region Laterality MAC CV Heart Rhythm Specimen Narrative MURJ - 05/24/2021 12:18 PM MANAGING JEWELER Title: Normal Remote: No Events # Initial [...] ASVS 34.7% APVS 64.7% Performing Organization Address City/[facility]/ZIP Code P [place] Number MURJ * DEVICE EVALUATION - PPM (05/14/2021 8:54 AM CDT) Generator Medtronic MURJ Dining Car Hop Generator [id number] MURJ Serial # Generator Model Adapta ADDR01 MURJ # Generator [id number] MURJ Implnat Date Pacemaker no MURJ Dependant On yes MURJ Anticoagulation EP SYSTEM MRI no MURJ CONDITIONAL Device Type IPG MURJ Modality Anatomical Region Laterality MAC CV Heart Rhythm Specimen Narrative MURJ - 05/24/2021 12:18 PM MANAGING JEWELER Title: Normal In-Office: No Events # KU [...] Address City/State/ZIP Code [place] Number MURJ * ECG-SCAN (05/14/2021 12:00 AM CDT) Narrative 05/14/2021 12:00 AM CDT Ordered by an unspecified provider. * NM MISC EXTERNAL IMAGING (04/30/2021 12:00 AM CDT) Modality Anatomical Region Laterality Computed Radiography Specimen Narrative Scheduling, Silent - 05/08/2021 2:49 PM CDT This order has been auto finalized and does not contain a result. * GENERAL RAD CHEST EXTERNAL IMAGING (03/17/2021 12:05 AM CDT) Modality Anatomical Region Laterality Computed Radiography Specimen Narrative Scheduling, Silent - 05/08/2021 2:56 PM CDT This order has been auto finalized and does not contain a result. * CT CHEST EXTERNAL IMAGING (03/17/2021 12:00 AM CDT) Modality Anatomical Region Laterality Computed Radiography Specimen Narrative Scheduling, Silent - 05/08/2021 2:50 PM CDT This order has been auto finalized and does not contain a result. from Last 3 Months Insurance Type Payer Benefit Subscriber ID Effective Phone Address Plan / Dates Group HMO [facility] [id number] 2020-P [phone] [id number] [facility] [place] [address] Advance Directives Patient Loader Technician Explanation Type Date Recorded Advance 11/29/2020 2:09 PM Directive/DPOA Date Inactivated Comments Code Status Date Activated 12/01/2020 6:15 PM Full Code 11/28/2020 6:20 PM Provider has discussed Code Status No, more discussi on w/Patient or Family? needed Care Teams Start Date End Date Home Care Rn Relationship Specialty 10/12/20 Heriberto Nunn MD PCP - General Family [address] [place] [address] 10/17/20 Alan Jackson MD CCP - [facility] [address] Continuity of logy [address] Care Provider [place], [place] [address] 12/27/20 Thania Ruvalcaba MD CCP - Cardiovascul [address] [place] [address] Care Provider
--- OUTSIDE RECORDS SUMMARY | 2021-06-13 11:00 | XMS REPORT | Encounter Summary ---
Author Author [facility] Organization [facility] Address Unknown Phone Unavailable Care Team Providers Care Automotive Dismantler Name Role Phone Heriberto Nunn MD PCP Alan Jackson MD [phone] Thania Ruvalcaba MD [phone] Reason for Visit * Reason Onset Date Comments Records Request 05/03/2021 Encounter Details Care Team Description Date Type Department Dahlia Mercado Records Request 05/03/[address] Tele[address] [address] Social History Date Tobacco Use Types Packs/Day [...] encounter Miscellaneous Notes * Telephone Encounter - Carol Najera - 05/09/2021 9:26 AM CDT 05/09/[address] Nunn office. Records are in pt chart throug h onbase edh 05/09/21 - faxed [address]nd request [address]. Heriberto Nunn's medical records office to be faxed MASSIMO to [phone], also left a message to follow up on original casey rds request / jmr * Telephone Encounter - Dahlia Mercado - 05/03/2021 2:36 PM CDT 05/03/21 Records requested per staff message edh Patient is now scheduled on 05/[address] Ferguson Please scan records to Chart Re quest records from PCP Heriberto Nunn MD ; Fax: No additional records needed from Cartridge Belt Puncher at this time Thank you documented in this encounter Plan of Treatment [...] encounter Care Teams Start Date End Date Automotive Dismantler Relationship Specialty 10/12/20 Heriberto Nunn MD PCP - General [facility] [address] [place] [address] 10/17/20 Alan Jackson MD CCP - [facility] [address] [place] [address] [place] [address] 12/27/20 Tahnia Ruvalcaba MD CCP - Cardiovascul [address] [place] [address] Care Provider documented as of this encounter
--- OUTSIDE RECORDS SUMMARY | 2021-06-13 11:00 | XMS REPORT | Encounter Summary ---
Author Author [facility] Organization [facility] Address Unknown Phone Unavailable Care Team Providers Care Cream Maker Name Role Phone Heriberto Nunn MD PCP Alan Jackson MD [phone] Thania Ruvalcaba MD [phone] Encounter Details Care Team Description Date Type Department 05/16/2021 Hospital Cardiovascular [facility] Encounter Remote Device Check [phone] Social History Date Tobacco Use Types Packs/Day [...] every 4 hours as needed 03/25/2021 rizatriptan (MAXALT-CENTERLESS GRINDER TENDER) 0 10 mg rapid dissolve tablet 12/01/2020 [...] Associated Diag nosis DEVICE EVALUATION - Routine 05/29/2021 Sinus node dysfunction REMOTE PPM CHARGES 5:16 PM NAIL MILL WORKER ([facility]) documented in this encounter Results * DEVICE EVALUATION - REMOTE PPM CHARGES (05/29/2021 5:16 PM NAIL MILL WORKER) Device Type IPG MURJ Generator Medtronic MURJ Clinical Product Specialist Generator Model ADDR01 MURJ # Generator [id number] MURJ Serial # EP DEVICE 05/14/21: Requested remote MURJ PATIENT NOTES transfer from Via [facility] [phone]. -bh Pacemaker no MURJ Dependant On yes MURJ Anticoagulation EP SYSTEM MRI no MURJ CONDITIONAL Modality Anatomical Region Laterality MAC CV Heart Rhythm Specimen Narrative MURJ - 05/24/2021 12:18 PM NAIL MILL WORKER Title: Normal Remote: No Events # Initial [...] MURJ documented in this encounter Visit Diagnoses Not on filedocumented in this encounter Additional Health Concerns Noted Time Assessment 12/01/2020 9:34 AM CDT A fall risk assessment has been complet ed for the patient 05/14/2021 7:55 AM CDT PHQ-2 Depression Total Score: 0 documented as of this encounter Care Teams Start Date End Date Cream Maker Relationship Specialty 10/12/20 Heriberto Nunn MD PCP - [address] [address] 10/17/20 Alan Jackson MD CCP - [facility] [address] Continuity of logy [address] [place] [address] 12/27/20 Thania Ruvalcaba MD CCP - Cardiovascul [address] [place] [address] Care Provider documented as of this encounter
--- OUTSIDE RECORDS SUMMARY | 2021-06-13 11:00 | XMS REPORT | Encounter Summary ---
Author Author [facility] Organization [facility] Address Unknown Phone Unavailable Care Team Providers Care Cut Off Saw Operator Metal Name Role Phone Heriberto Nunn MD PCP Alan Jackson MD [phone] Thania Ruvalcaba MD [phone] Reason for Visit * Reason Onset Date Comments Abdominal pain 05/08/2021 Encounter Details Care Team Description [place] [address] [place] [address] Abdominal pain 05/08/2021 Telephone Metabolic and Baria tric Care: [facility]: [address] [place] [id number] Social History Date Tobacco Use Types Packs/Day [...] Telephone Encounter - Basia Arevalo RN - 05/08/2021 12:01 PM CDT Patient called to report having ongoing abdominal pain, recent testing for gastr oparesis showing slowed intestinal emptying, and swollen lymph nodes. Appointmen t made with Dr. Kumar tomorrow for follow up. documented in this encounter Plan of Treatment [...] encounter Care Teams Start Date End Date Cut Off Saw Operator Metal Relationship Specialty 10/12/20 Heriberto Nunn MD PCP - [address] [address] 10/17/20 Alan Jackson MD CCP - [facility]astro[facility] [address] Continuity of logy [address] Care Provider [place], [place] [address] 12/27/20 Thania Ruvalcaba MD CCP - Cardiovascul [address] [place] [address] Care Provider documented as of this encounter
--- OUTSIDE RECORDS SUMMARY | 2021-06-13 11:00 | XMS REPORT | Encounter Summary ---
Author Author [facility] Organization [facility] Address Unknown Phone Unavailable Care Team Providers Care Senior Water Resources Engineer Name Role Phone Heriberto Nunn MD PCP Alan Jackson MD [phone] Thania Ruvalcaba MD [phone] Reason for Visit * Reason Comments Follow Up abdominal pain Encounter Details Care Team Description [place] [address] [place] [address] Status post laparoscopic Amna fundopli cation (Primary Dx); Gastroesophageal reflux disease with hiatal hernia; Gastroparesis 05/09/2021 Office Visit Metabolic and Baria tric Telehealth Care: [facility]: [id number] [place] [address] Social History Date Tobacco Use [...] Oxygen Saturation - - Inhaled Oxygen Concentration 83.5 kg (184 lb) 05/09/2021 9:54 AM CDT Weight 162.6 cm (5' 4") 05/09/2021 9:54 AM CDT Height 31.58 05/09/2021 9:54 AM CDT Body Mass Index documented in this encounter Functional Status Date of Assessment Functional Status Response 11/29/2020 Does the patient have a hearing impairment: No documented as of this encounter Progress Notes * Carol Kumar MD - 05/09/2021 10:30 AM CDT Obtained patient's, or patient proxy's, verbal consent to treat them and their a greement to [facility] financial policy and NPP via this telehealth visit during the [facility] Emergency CC: Morbid obesity, follow up appointment status post laparoscopic recurrent hia gladys hernia repair with fundoplication Subjective: Maria Fernanda Rondon is a 55 y.o. status post above. Patient is seen in telemedicine return. She reported symptoms of pain in the ep igastrium and states these symptoms are new. Denies nausea/emesis. Patient underwent laparoscopic recurrent paraesophageal hernia repair with Acell mesh, modified Hill-Amna fundoplication. Patient has had ongoing chest "pres sure" symptoms post-operatively. Patient states she has now developed symptoms of pain lower than her chest pressure but which she states is more in the epigas trium. Has now undergone evaluation with EGD as well as gastric emptying study at her home facility ([place], [place]). Patient states she was prescribed antibi otics after undergoing EGD and felt better while on antibiotics. GES with delay ed gastric emptying- was started on reglan 5mg and has now increased to 10mg thi s past week. She states she has not noted an improvement of symptoms. Patient also reports ongoing issues with constipation. Will takes multiple dose s of milk of magnesia without effect. Evaluation and history prior to recurrent paraesophageal hernia repair: CT images as well as manometry. CT reveals small-moderate recurrent hiatal her caleb with wrap partially within mediastinum. Manometry with some nonpropulsive c ontractions- felt to be mild and likely related to underlying reflux (reports sc anned into media). In summary of her history: Patient referred by Dr. Nunn for evaluation of recurrent hiatal hernia. Patient underwent laparoscopic hiatal hernia repair and unknown fundoplication i n 2018 in [place], [place]. Prior to that procedure, patient noted symptoms of acid reflux, food sticking, chest pressure. Symptoms improved x approx 10 months after the procedure. Patient currently with symptoms of heartburn with lying supine. Has to sleep i n a recliner. Notes frequent belching. Patient reports ongoing weight gain s michael symptom recurrence but feels she has not changed her eating habits to accou nt for the weight gain. Symptoms of dysphagia and food sticking with rice or b read. Patient states she is miserable with her current reflux symptoms and jo nophagia. Denies improvement of symptoms with dexilant or protonix. Patient on chronic anticoagulation for atrial fibrillation; ablation x 3, last A ugust 2019. Will have rare recurrence of symptoms. Patient with +pacemaker. Patient reports lifelong nonsmoker. PE: Vitals: 05/09/21 0954 Weight: 83.5 kg (184 lb) Height: 162.6 cm (64") PainSc: Six No flowsheet data found. No flowsheet data found. No flowsheet data found. No flowsheet data found. Gen: A/Ox3, NAD HEENT: EOMI, sclera anicteric Chest: nonlabored, able to speak in complete sentences without difficulty Derm: No rashes apparent GES reviewed A/P: 55 y.o. female s/p laparoscopic recurrent paraesophageal hernia repair wit h biologic mesh, modified Hill-Amna fundoplication. Recommended gastroparesis diet- small meals 5-6x/day. Patient currently eating twice/day. Recommend further medication trials for treatment of gastroparesis as well as ev aluation of more global GI dysmotility. Discussed complex and high risk nature of further gastric surgical intervention and optimizing medical management prior to any potential surgical revision. Will continue this evaluation near her home facility as difficult for travel. Obtained patient's, or patient proxy's, verbal consent to treat them and their a greement to [facility] financial policy and NPP via this telehealth visit during the [facility] Emergency documented in this encounter Plan of Treatment [...] post laparoscopic Amna fundopl ication - Primary Gastroesophageal reflux disease with hi atal hernia Esophageal reflux Gastroparesis documented in this encounter Historical Medications * This list may reflect changes made after this encounter. Start Date End Date Medication Sig Dispensed Refills 03/25/2021 rizatriptan (MAXALT-FUDGE CANDY MAKER) 0 10 mg rapid dissolve tablet metoclopramide HCL metoclopramid 0 (REGLAN) 10 mg tablet e 10 mg tablet TAKE 1 TABLET BY MOUTH EVERY SIX HOURS added in this encounter Additional Health Concerns Noted Time Assessment 12/01/2020 9:34 AM CDT A fall risk assessment has been complet ed for the patient documented as of this encounter Care Teams Start Date End Date Senior Water Resources Engineer Relationship Specialty 10/12/20 Heriberto Nunn MD PCP - [id number] [place], [place] [phone] 10/17/20 Alan Jackson MD CCP - [facility] [address] [facility] [facility] [address] [address] Care Provider [place], [place] [phone] 12/27/20 Thania Ruvalcaba MD CCP - [facility] [address] [place] [address] Care Provider documented as of this encounter
--- OUTSIDE RECORDS SUMMARY | 2021-06-13 11:01 | XMS REPORT | Encounter Summary ---
Author Author [facility] Organization [facility] Address Unknown Phone Unavailable Care Team Providers Care Credit Control Administrator Name Role Phone Heriberto Nunn MD PCP Alan Jackson MD [phone] Thania Ruvalcaba MD [phone] Reason for Visit * Reason Onset Date Comments Follow Up 05/02/2021 Encounter Details Care Team Description Date Type Department Yuridia Tejada RN Follow Up 05/02/2021 Telephone Cardiology: [facility] [address], [address] [place] [address] Social History Date Tobacco Use [...] encounter Miscellaneous Notes * Telephone Encounter - Yuridia Tejada RN - 05/02/2021 4:27 PM CDT RC to pt. She states she sees Dr. Ruvalcaba and he is referring her to [facility]. She walker s already had 3 ablations and a PPM. She had 2 ablation in [place] and one in [facility]. The PPM is almost 10 years old. She states she needs an ablation about eduar ry 2 years. Her symptoms have become worse lately. She has lots of PVCs and PACs . She has tried all the medications and they don't work. She has checked with he r insurance and she must go to a hospital in [place] be [place]. [place] from . She states she just saw Dr. Ruvalcaba this afternoon and they se nt the referral today. He would like her to see Dr. Ferguson before 05/16, which is when she returns to Dr. Ruvalcaba's office. I informed her that we would get her ashia eduled as soon as possible once the referral is received. Reviewed plan with the patient. Patient verbalized understanding and does not have any further questio ns or concerns. No further education requested from patient. Patient has our con tact information for future needs. * Telephone Encounter - Yuridia Tejada RN - 05/02/2021 4:27 PM CDT ----- Message from Anita Nguyen LPN sent at 05/02/2021 3:40 PM CDT ----- Regarding: Referral ? VM on triage line from patient. She is a referral and has question that she needs answered before she drives all the way to . Call her at #[phone]. documented in this encounter Plan of Treatment [...] encounter Care Teams Start Date End Date Credit Control Administrator Relationship Specialty 10/12/20 Heriberto Nunn MD PCP - [address] [address] 10/17/20 Alan Jackson MD CCP - [facility] [address] [facility] [facility] [address] [address] [place] [address] 12/27/20 Thania Ruvalcaba MD CCP - Cardiovascul [address] [place] [address] Care Provider documented as of this encounter
--- OUTSIDE RECORDS SUMMARY | 2021-06-13 11:01 | XMS REPORT | Encounter Summary ---
Author Author [facility] Organization [facility] Address Unknown Phone Unavailable Care Team Providers Care Parts Identification Technician Name Role Phone Heriberto Nunn MD PCP Alan Jackson MD [phone] Thania Ruvalcaba MD [phone] Reason for Visit * Reason Comments Atrial fibrillation AFC Encounter Details Care Team Description Date Type Department Amparo Oneil BSN Atrial fibrillation (AFC) 05/03/2021 Documentation Cardiology: [facility] [address] [place] [address] Social History Date Tobacco Use [...] as of this encounter Progress Notes * Amparo Oneil BSN - 05/03/2021 12:30 PM CDT [facility] Note: Patient approved to be seen in [facility] Patient Name: Maria Fernanda Rondon : 1965 Referring Physician: Thania dubose, Cardiology Referring for hx of afib, increasing palpitations, possible repeat ablation Records in [facility] Rhythm/Rate Control Meds: Toprol XL Current Anticoagulation/Antiplatelet: Eliquis (Apixaban) BMI: 32.3 (will require Wt. Mgmt. consult) CHADS-VASC = HTN (1), Female (1) and Prior VA, PAD, or Aortic Plaque (1) STOP BANG = evaluate in clinic Device: Yes PPM LENORE: Location: [facility] Date: 11/14/2020 EF: 60% Left Atrium: Mildly Dilated Monitor: none found documented in this encounter Plan of Treatment [...] encounter Care Teams Start Date End Date Parts Identification Technician Relationship Specialty 10/12/20 Heriberto Nunn MD PCP - [id number] [place] [address] 10/17/20 Alan Jackson MD CCP - [facility] [address] [facility] [address] [place] [address] 12/27/20 Thania Ruvalcaba MD CCP - Cardiovascul [address] [place] [address] Care Provider documented as of this encounter
--- OUTSIDE RECORDS SUMMARY | 2021-06-13 11:02 | XMS REPORT | Encounter Summary ---
Author Author [facility] Organization [facility] Address Unknown Phone Unavailable Care Team Providers Care Lace Stripper Name Role Phone Heriberto Nunn MD PCP Alan Jackson MD [phone] Thania Ruvalcaba MD [phone] Encounter Details Care Team Description Date Type Department 04/30/2021 Hospital Imaging: [facility] [address] [place] [address] Social History Date Tobacco Use [...] nasal DAY IN EACH spray, suspension NOSTRIL levothyroxine (SYNTHROID) Take 100 mcg 0 100 [...] every 4 hours as needed 03/25/2021 rizatriptan (MAXALT-EQUINE SCIENCE INSTRUCTOR) 0 10 mg rapid dissolve tablet 12/01/2020 senna (SENOKOT) 8.6 mg Take one 0 tablet tablet by mouth twice daily. 12/01/2020 simethicone (MYLICON) 80 Chew one 30 tablet 0 mg chew tablet tablet by mouth every 6 hours as needed. For gas pain 05/14/2021 furosemide (LASIX) 40 mg Take 40 mg by 0 tablet mouth every morning. 05/14/2021 sotaloL (BETAPACE) 80 mg Take 40 mg by 0 tablet mouth twice daily. documented as of this encounter Discharge Disposition [...] Procedure Name Priority Date/Time Associated Diag nosis [facility] EXTERNAL IMAGING Routine 04/30/2021 12:00 AM CDT documented in this encounter Results * [facility] (04/30/2021 12:00 AM CDT) Modality Anatomical Region Laterality Computed Radiography Specimen Narrative Scheduling, Silent - 05/08/2021 2:49 PM CDT This order has been auto finalized and does not contain a result. documented in this encounter Visit Diagnoses Not on filedocumented in this encounter Additional Health Concerns Noted Time Assessment 12/01/2020 9:34 AM CDT A fall risk assessment has been complet ed for the patient documented as of this encounter Care Teams Start Date End Date Lace Stripper Relationship Specialty 10/12/20 Heriberto Nunn MD PCP - [address] [phone] 10/17/20 Alan Jackson MD CCP - [facility] [address]y [address] [place] [address] 12/27/20 Thania Ruvalcaba MD CCP - Cardiovascul [address] [place] [address] Care Provider documented as of this encounter
[2021-06-13] MEDS ORDERED: NITROGLYCERIN 0.4 MG SL TABS BTL 25'S SL ONE (11:03)
[2021-06-13] MEDS ORDERED: ASPIRIN 81 MG CHEW (CHILDREN'S ASA) ONE (11:03)
--- NOTE | 2021-06-13 11:11 | ED Chest Pain ---
General Chief Complaint: Chest Pain Stated Complaint: ABDOMINAL PAIN CHEST PAIN KRAFT HEART ISSUES Source: patient Exam Limitations: no limitations History of Present Illness Date Seen by Provider: Jun 13, 2021 Time Seen by Provider: 11:07 Initial Comments To ER with several complaints. Primarily is chest pain lower sternal/epigastric that began at 9 AM this morning. She also has palpitations. She has a history of atrial fibrillation. She has a pacemaker and reports that her heart rate this morning was in the 40s according to her machine. She has some epigastric pain and nausea. She is scheduled for an outpatient CT abdomen pelvis tomorrow for this pain by primary care Dr. Nunn but would like to have that done today. She also had an ultrasound of her left lower extremity recently due to pain which was negative for DVT. She would like to have her D-dimer rechecked as well because at one time it was high while she was on Eliquis. She also has a cough, chills at night, general malaise. Not vaccinated against Covid. No history of coronary disease. Timing/Duration: 1-2 days Severity/Quality: moderate Location: substernal Radiation: no radiation Prior CP/Workup: no prior chest pain ASA po HYDROGEN POWER PLANT ENGINEER: No NTG SL HYDROGEN POWER PLANT ENGINEER: No Associated Symptoms: fatigue, nausea/vomiting, shortness of breath Allergies and Home Medications Allergies Coded Allergies: Latex, Natural Rubber (Unverified Allergy, Intermediate, Shortness of Breath, 09/27/20) Patient Home Medication List Home Medication List Reviewed: Yes Apixaban (Eliquis) 5 Mg Tablet, 5 MG PO DAILY, (Reported) Entered as Reported by: CINTHIA CLARK on 09/27/20 1147 Clonidine HCl (Clonidine HCl) 0.1 Mg Tablet, 0.1 MG PO BID, (Reported) Entered as Reported by: CINTHIA CLARK on 03/22/21 1155 Dexlansoprazole (Dexilant) 60 Mg Can., 60 MG PO DAILY, (Reported) Entered as Reported by: LEOBARDO CARLIN on 12/04/20 1427 Famotidine (Pepcid) 20 Mg Tablet, 20 MG PO BID Prescribed by: KINGSLEY DAY on 03/17/21 1243 Fluticasone Propionate (Fluticasone Propionate) 16 Gm [place].susp, 1 SPRAY NSEACH BID PRN for CONGESTION, (Reported) Entered as Reported by: LEOBARDO CARLIN on 12/04/20 1427 Furosemide (Furosemide) 20 Mg Tablet, 20 MG PO DAILY, (Reported) Entered as Reported by: CINTHIA CLARK on 03/22/21 1155 Hydrocodone/Acetaminophen (Hydrocodone-Acetamin 5-325 mg) 1 Each Tablet, 1 TAB PO Q6H PRN for PAIN-MODERATE (5-7) Prescribed by: ANDREE BUTT on 01/16/21 1124 Levothyroxine Sodium (Levothyroxine Sodium) 100 Mcg Tablet, 100 MCG PO DAILY, (Reported) Entered as Reported by: LEOBARDO CARLIN on 12/04/20 1427 Multivitamin (Multivitamin) 1 Each Tablet, 1 EACH PO DAILY, (Reported) Entered as Reported by: CINTHIA CLARK on 03/22/21 1155 Sucralfate (Carafate) 1 Gm Tablet, 1 GM PO QID Prescribed by: KINGSLEY DAY on 03/17/21 1243 Review of Systems Review of Systems Constitutional: see HPI, chills EENTM: No Symptoms Reported Respiratory: See HPI, Cough Cardiovascular: See HPI, Chest Pain, Palpitations Gastrointestinal: See HPI, Abdominal Pain Genitourinary: No Symptoms Reported Musculoskeletal: no symptoms reported Skin: no symptoms reported Psychiatric/Neurological: No Symptoms Reported Past Dltycoa-Nbiyzl-Lzlhzh Hx Immunizations Up To Date Tetanus Booster (TDap): Less than 5yrs PED Vaccines UTD: Yes Seasonal Allergies Seasonal Allergies: Yes Past Medical History Surgery/Hospitalization HX: SX: CARDIAC ABLATION, APPY, GALLBLADDER, DNC, PACEMAKER, HERNIA REPAIR Surgeries: Yes (DNC'S, LAPAROSCOPY, UVULA REMOVED, hernia repair) Appendectomy, Bladder Surgery, Cardiac, Gallbladder, Hysterectomy, Pacemaker, Tonsillectomy Respiratory: No Cardiac: Yes (ABLATION, CHF) Atrial Fibrillation, Valvular Heart Disease Neurological: Yes Headaches /Migraines COUNTER MANAGER History: Hysterectomy, 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, Menopausal Genitourinary: No (BLADDER SLING) Gastrointestinal: Yes Reina's Esophagus Musculoskeletal: Yes Chronic Back Pain Endocrine: Yes Hypothyroidsim HEENT: No Cancer: Yes (PRE CANCER POLYPS) Colon Psychosocial: Yes Depression Integumentary: Yes Eczema, Psoriasis Blood Disorders: No Family Medical History Colon cancer Noncontributory Physical Exam Vital Signs Vital Signs - First Documented 06/13/21 10:58 Pulse 73 Resp 8 B/P (MAP) 188/115 (139) Pulse Ox 100 O2 Delivery Room Air Capillary Refill : Height, Weight, BMI Height: '" Weight: lbs. oz. kg; 30.93 BMI Method: General Appearance: No Apparent Distress, WD/WN Neck: Full Range of Motion, Normal Inspection Respiratory: No Accessory Muscle Use, No Respiratory Distress Cardiovascular: Regular Rate, Rhythm, Normal Peripheral Pulses, Other (Telemetry and EKG shows rate of 62 atrial paced. T wave inversion in lead III,and V2 to V6. No ST elevation and no change from EKG on 12/13/20. Blood pressure is 182/118.) Gastrointestinal: Normal Bowel Sounds, Soft, Other Extremity: Normal Capillary Refill, Normal Inspection Neurologic/Psychiatric: Alert, Oriented x3 Skin: Normal Color, Warm/Dry Progress/Results/Core Measures Results/Orders Lab Results Laboratory Tests Test 06/13/21 11:04 06/13/21 11:08 Range/Units White Blood Count 7.7 4.3-11.0 10^3/uL Red Blood Count 4.94 3.80-5.11 10^6/uL Hemoglobin 14.2 11.5-16.0 g/dL Hematocrit 42 35-52 % Mean Corpuscular Volume 85 80-99 fL Mean Corpuscular Hemoglobin 29 25-34 pg Mean Corpuscular Hemoglobin Concent 34 32-36 g/dL Red Cell Distribution Width 13.5 10.0-14.5 % Platelet Count 236 130-400 10^3/uL Mean Platelet Volume 10.0 9.0-12.2 fL Immature Granulocyte % (Auto) 0 % Neutrophils (%) (Auto) 49 42-75 % Lymphocytes (%) (Auto) 42 12-44 % Monocytes (%) (Auto) 7 0-12 % Eosinophils (%) (Auto) 2 0-10 % Basophils (%) (Auto) 1 0-10 % Neutrophils # (Auto) 3.8 1.8-7.8 10^3/uL Lymphocytes # (Auto) 3.2 1.0-4.0 10^3/uL Monocytes # (Auto) 0.5 0.0-1.0 10^3/uL Eosinophils # (Auto) 0.2 0.0-0.3 10^3/uL Basophils # (Auto) 0.0 0.0-0.1 10^3/uL Immature Granulocyte # (Auto) 0.0 0.0-0.1 10^3/uL Prothrombin Time 13.2 12.2-14.7 SEC INR Comment 1.0 0.8-1.4 Activated Partial Thromboplast Time 30 24-35 SEC Sodium Level 142 135-145 MMOL/L Potassium Level 3.6 3.6-5.0 MMOL/L Chloride Level 105 98-107 MMOL/L Carbon Dioxide Level 26 21-32 MMOL/L Anion Gap 11 5-14 MMOL/L Blood Urea Nitrogen 16 7-18 MG/DL Creatinine 0.81 0.60-1.30 MG/DL Estimat Glomerular Filtration Rate 74 BUN/Creatinine Ratio 20 Glucose Level 92 70-105 MG/DL Calcium Level 9.6 8.5-10.1 MG/DL Corrected Calcium 8.5-10.1 MG/DL Magnesium Level 2.0 1.6-2.4 MG/DL Total Bilirubin 0.6 0.1-1.0 MG/DL Aspartate Amino Transf (AST/SGOT) 28 5-34 U/L Alanine Aminotransferase (ALT/SGPT) 42 0-55 U/L Alkaline Phosphatase 119 40-136 U/L Myoglobin 42.2 10.0-92.0 NG/ML Troponin I < 0.028 <0.028 NG/ML B-Type Natriuretic Peptide 41.3 <100.0 PG/ML Total Protein 8.2 6.4-8.2 GM/DL Albumin 4.6 H 3.2-4.5 GM/DL Lipase 20 8-78 U/L SARS-CoV-2 RNA (RT-PCR) Not Detected Not Detecte My Orders Orders - PIERRE JOSEPH APRN Cbc With Automated Diff (06/13/21 11:05) Magnesium (06/13/21 11:05) Chest 1 View, Ap/Pa Only (06/13/21 11:05) Ekg Tracing (06/13/21 11:05) Comprehensive Metabolic Panel (06/13/21 11:05) Myoglobin Serum (06/13/21 11:05) Protime With Inr (06/13/21 11:05) Partial Thromboplastin Time (06/13/21 11:05) O2 (06/13/21 11:05) Monitor-Rhythm Ecg Trace Only (06/13/21 11:05) Lipid Panel (06/14/21 06:00) Ed Iv/Invasive Line Start (06/13/21 11:05) Bnp [place] (06/13/21 11:05) Troponin I [place] (06/13/21 11:05) Nitroglycerin 0.4 Mg Btl 25's (Nitrostat (06/13/21 11:15) Aspirin Chewable Tablet (Baby Aspirin Ch (06/13/21 11:15) Ct Abdomen/Pelvis W (06/13/21 11:05) Lipase (06/13/21 11:05) Covid 19 Inhouse Test (06/13/21 11:05) Iohexol Injection (Omnipaque 350 Mg/Ml 1 (06/13/21 11:45) Received Contrast (Hold Metformin- Contr (06/13/21 11:45) Sodium Chloride Flush (Catheter Flush Sy (06/13/21 11:45) Ns (Ivpb) (Sodium Chloride 0.9% Ivpb Bag (06/13/21 11:45) Medications Given in ED Current Medications Medications Dose Ordered Sig/Giselle Route Start Time Stop Time Status Last Admin Dose Admin Aspirin 324 mg ONCE ONCE PO 06/13/21 11:15 06/13/21 11:16 DC 06/13/21 11:08 324 MG Iohexol 100 ml ONCE ONCE IV 06/13/21 11:45 06/13/21 11:46 DC 06/13/21 12:16 100 ML Nitroglycerin 0.4 mg UD PRN SL 06/13/21 11:15 06/13/21 11:09 0.4 MG Sodium Chloride 10 ml NEEDED PRN IV 06/13/21 11:45 06/13/21 12:16 10 ML Sodium Chloride 100 ml ONCE ONCE IV 06/13/21 11:45 06/13/21 11:46 DC 06/13/21 12:16 80 ML Vital Signs/I&O 06/13/21 10:58 Pulse 73 Resp 8 B/P (MAP) 188/115 (139) Pulse Ox 100 O2 Delivery Room Air Departure Communication (Admissions) Family Conversation NAME: EDINSONOLESYA Leticia MED REC#: [id number] PT STATUS: REG ER : 1965 PHYSICIAN: PIERRE JOSEPH SENIOR WEALTH ADVISOR ADMIT DATE: 06/13/21/ER Draft Date of Exam:06/13/21 CT ABDOMEN/PELVIS W EXAMINATION: CT abdomen and pelvis with intravenous contrast. TECHNIQUE: Multiple contiguous axial images were obtained through the abdomen and pelvis after the uneventful administration of intravenous contrast. All CT scans use one or more of the following dose optimizing techniques: automated exposure control, MA and/or KvP adjustment based on patient size and exam type or iterative reconstruction. HISTORY: Epigastric pain COMPARISON: 01/10/2021 FINDINGS: Lung bases: Stable reticular opacities in the left lower lobe. Solid organs: The liver is normal without focal lesion. The gallbladder is normal. There is no biliary ductal dilation. Pancreas is normal. Spleen is normal. Adrenal glands are normal. The kidneys are normal without hydronephrosis. Bowel: There is a small hiatal hernia. No bowel obstruction. The colon is unremarkable. No findings of acute appendicitis. Peritoneum: There is no intraperitoneal free fluid or free air. No suspicious lymphadenopathy. Vasculature: Normal without aneurysm. Musculoskeletal: No suspicious osseous lesion or compression fracture. Pelvis: The uterus is surgically absent. No adnexal mass. The urinary bladder is normal. IMPRESSION: 1. No acute abnormality in the abdomen or pelvis. Dictated on workstation # [id number] Dict: 06/13/21 1220 Trans: 06/13/21 1224 [facility] [id number] Interpreted by: YECENIA BROWN DO Electronically signed by: [id number] discussed with her that getting a CT would be reasonable given the epigastric pain. However rechecking a D-dimer would not be reasonable given that she has a normal left lower extremity ultrasound recently and she is on Eliquis with a heart rate of 62 and oxygen saturation of 100% on room air. Discussed with her that just because it was elevated previously does not indicate clot as there are a variety of factors that can elevate a D-dimer. We did give aspirin 324 mg and 1 sublingual nitroglycerin. Review of records indicates that in November of this year she had an episode of atrial fibrillation with rapid ventricular response and was admitted with a slightly elevated troponin. She underwent cardiac catheterization here with Dr. Ruvalcaba showing a normal coronary system without any intervention. No coronary disease. 1229-HR 61, BP 149/92. Impression Primary Impression: Epigastric pain Additional Impression: Hypertension Disposition: ADMITTED INPATIENT Condition: Stable Departure-Patient Inst. Decision time for Depature: 12:30 Referrals: JIMY NUNN MD (PCP/Family) Primary Care Physician Patient Instructions: General (DC) Add. Discharge Instructions: 1. Follow-up with primary care and cardiology. Return to ER for any concerns. Continue all current medications. All discharge instructions reviewed with patient and/or family. Voiced understanding. PIERRE JOSEPH SENIOR WEALTH ADVISOR Jun 13, 2021 11:11
[2021-06-13 11:14] LABS: BASOPHILS % (AUTO) 1 % (0-10); EOSINOPHILS # (AUTO) 0.2 10^3/uL (0.0-0.3); EOSINOPHILS % (AUTO) 2 % (0-10); HEMATOCRIT 42 % (35-52); HEMOGLOBIN 14.2 g/dL (11.5-16.0); LYMPHOCYTES # (AUTO) 3.2 10^3/uL (1.0-4.0); LYMPHOCYTES % (AUTO) 42 % (12-44); MEAN CORPUSCULAR HEMOGLOBIN 29 pg (25-34); MEAN CORPUSCULAR HGB CONC 34 g/dL (32-36); MEAN CORPUSCULAR VOLUME 85 fL (80-99); MONOCYTES # (AUTO) 0.5 10^3/uL (0.0-1.0); MONOCYTES % (AUTO) 7 % (0-12); NEUTROPHILS # (AUTO) 3.8 10^3/uL (1.8-7.8); NEUTROPHILS % (AUTO) 49 % (42-75); PLATELET COUNT 236 10^3/uL (130-400); WHITE BLOOD COUNT 7.7 10^3/uL (4.3-11.0)
[2021-06-13] MEDS ORDERED: NITROGLYCERIN 0.4 MG SL TABS BTL 25'S SL PRN (11:15)
[2021-06-13] MEDS ORDERED: ASPIRIN 81 MG CHEW (CHILDREN'S ASA) PO ONE (11:15)
[2021-06-13 11:25] LABS: ALBUMIN 4.6 GM/DL (3.2-4.5)
[2021-06-13 11:26] LABS: CHLORIDE 105 MMOL/L (98-107); POTASSIUM 3.6 MMOL/L (3.6-5.0); SODIUM 142 MMOL/L (135-145)
[2021-06-13 11:27] LABS: CALCIUM 9.6 MG/DL (8.5-10.1)
[2021-06-13 11:28] LABS: GLUCOSE 92 MG/DL (70-105); TOTAL PROTEIN 8.2 GM/DL (6.4-8.2)
[2021-06-13 11:29] LABS: CARBON DIOXIDE 26 MMOL/L (21-32)
[2021-06-13 11:30] LABS: BILIRUBIN,TOTAL 0.6 MG/DL (0.1-1.0)
[2021-06-13 11:31] LABS: ALKALINE PHOSPHATASE 119 U/L (40-136)
[2021-06-13 11:32] LABS: CREATININE SERUM 0.81 MG/DL (0.60-1.30); GFR ESTIMATED 74
[2021-06-13 11:33] LABS: BUN/CREATININE RATIO 20
[2021-06-13 11:34] LABS: ALANINE AMINOTRANSFERASE 42 U/L (0-55)
[2021-06-13 11:35] LABS: LIPASE 20 U/L (8-78)
[2021-06-13 11:37] LABS: PROTHROMBIN TIME PATIENT 13.2 SEC (12.2-14.7)
[2021-06-13] MEDS ORDERED: CATHETER FLUSH 10 ML SYR IV PRN (11:45)
[2021-06-13] MEDS ORDERED: IOHEXOL 350 MG/ML 100 ML (OMNIPAQUE 350) VIAL IV ONE (11:45)
[2021-06-13] MEDS ORDERED: NS 100 ML (IVPB) BAG IV ONE (11:45)
[2021-06-13] MEDS ORDERED: HOLD METFORMIN - RECEIVED CONTRAST 20 ML VIAL IV SCH (11:45)
--- NOTE | 2021-06-13 11:54 | Diagnostic Imaging Report ---
INDICATION: Chest pain, shortness of air with palpitations. TIME OF EXAM: 11:39 AM Correlation is made with prior chest 12/15/2020. FINDINGS: Heart size stable. Dual lead left subclavian cardiac pacemaker remains in place. There is no infiltrate or failure. No effusion or pneumothorax is detected. IMPRESSION: No acute cardiopulmonary process is detected. Dictated by: Dictated on workstation # [id number]
--- NOTE | 2021-06-13 12:24 | Diagnostic Imaging Report ---
EXAMINATION: CT abdomen and pelvis with intravenous contrast. TECHNIQUE: Multiple contiguous axial images were obtained through the abdomen and pelvis after the uneventful administration of intravenous contrast. All CT scans use one or more of the following dose optimizing techniques: automated exposure control, MA and/or KvP adjustment based on patient size and exam type or iterative reconstruction. HISTORY: Epigastric pain COMPARISON: 01/10/2021 FINDINGS: Lung bases: Stable reticular opacities in the left lower lobe. Solid organs: The liver is normal without focal lesion. The gallbladder is surgically absent. There is no biliary ductal dilation. Pancreas is normal. Spleen is normal. Adrenal glands are normal. The kidneys are normal without hydronephrosis. Bowel: There is a small hiatal hernia. No bowel obstruction. The colon is unremarkable. No findings of acute appendicitis. Peritoneum: There is no intraperitoneal free fluid or free air. No suspicious lymphadenopathy. Vasculature: Normal without aneurysm. Musculoskeletal: No suspicious osseous lesion or compression fracture. Pelvis: The uterus is surgically absent. No adnexal mass. The urinary bladder is normal. IMPRESSION: 1. No acute abnormality in the abdomen or pelvis. Dictated by: Dictated on workstation # [id number]
[2021-06-13 12:47] VITALS: BP 142/94
[2021-06-13 13:38] LABS: FREE T4 (FREE THYROXINE) 0.85 NG/DL (0.70-1.48)
== END 2021-06-13 12:47 | disposition other institution (70) ==
LOC: EDUNIT# 10:54 → ER 10:57
DX: R10.13 Epigastric pain (principal); I11.0 Hypertensive heart disease with heart failure; I50.9 Heart failure, unspecified; E03.9 Hypothyroidism, unspecified; G89.29 Other chronic pain; M54.9 Dorsalgia, unspecified; I48.91 Unspecified atrial fibrillation; Z20.822 Contact with and (suspected) exposure to COVID-19; Z79.890 Hormone replacement therapy; Z79.01 Long term (current) use of anticoagulants; Z79.891 Long term (current) use of opiate analgesic; Z79.899 Other long term (current) drug therapy
CPT/HCPCS: 36415; 71045; 74177; 80053; 83690; 83735; 83874; 83880; 84439; 84443; 84484; 85025; 85610; 85730; 87636; 93005; 93041

== ENCOUNTER 2021-08-06 07:52 | Emergency (ER) | payer BC ==
[~2021-08-06] VITALS: Ht 162.5 cm; Wt 88.6 kg
--- OUTSIDE RECORDS SUMMARY | 2021-08-06 07:58 | XMS REPORT | Clinical Summary ---
Author Author [facility] Organization [facility] Address Unknown Phone Unavailable Care Team Providers Care Travel Occupational Therapist Name Role Phone Heriberto Nunn MD PCP Alan Jackson MD [phone] Thania Ruvalcaba MD [phone] Source Comments Some departments are not documenting in the electronic medical record. If you d o not see the information that you expected, contact Release of Information in [facility] [place] Information Management department at [phone] for further assistan marino in locating additional records.[facility] Allergies Comments Active Allergy Reactions Severity [...] 80 Chew one 30 tablet 0 0 //202 mg chew tablet tablet by 1 mouth [...] PAIN Active fluticasone propionate SQUIRT 1 0 12/13/ 02 (FLONASE) 50 SPRAY ONCE A 1 mcg/actuation nasal DAY IN EACH spray, suspension NOSTRIL Active metoclopramide HCL metoclopramid 0 (REGLAN) 10 mg tablet e 10 mg tablet TAKE 1 TABLET BY MOUTH EVERY SIX HOURS Active rizatriptan (MAXALT-PRICING CONSULTANT) 0 10 mg rapid dissolve 1 tablet [...] 09/06/2020 Hypothyroidism (acquired) 09/06/2020 Abnormal EKG 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 2014 - s/p LAAA ([place], [place]) 2015 - s/p LAAA ([place], [place]) 2019 - s/p LAAA ([place], [place]) - ECHO: ([facility]) Normal LV function. LA enlargement. Mild TVR with mild to mod erate pulmonary HTN. 12/04/2020 - ECHO: ([facility]) LV cavity size is normal. LV [...] PAP 25mmHg. 12/05/2020 - [place] + DCCV: ([facility]) Successful electrical cardioversion ter minating AFL/AF. Fracture of left fibula 09/04/2017 Chest pain 01/04/2017 Overview: Formatting of this note might be differ ent from the original. 08/06/2020 - CTA of Chest: ([facility]) Bilateral linear scarring without PE or other acute abnormality seen in the thorax. 08/15/2020 - CTA of Chest: ([facility] No evidence of PE or thoracic aortic di ssection. Moderate-sized hiatal hernia. No acute feature is detected. 12/03/2020 - CTA of Chest: ([facility]) No acute PE. Bilateral small pleural e ffusions with bibasilar atelectasis. Trace pericardial effusio n. 12/04/2020 - Cardiac Catheterization: ([facility]) Normal coronary system . Normal LV size, EF 50%, elevated LVEDP. 03/17/2021 - CTA of Chest: ([facility]). There is no identified PE. Mult ifocal [...] Encounters Care Team Description Date Type Specialty Katey Alanis RN Remote Monitoring Transferred (Verified with pt that remote to be transferred to Dr Daigle in [facility]. ) 06/24/2021 Telephone Cardiology Anay Hutson RN Follow Up 06/23/2021 Telephone Cardiology 06/13/2021 Hospital Cardiology Encounter Jose Miguel Seals RN 06/13/2021 Telephone Cardiology Red Blum Remote ICD/PM Check 06/13/2021 Telephone Cardiology 06/03/2021 [...] Kumar MD Abdominal pain 05/08/2021 Telephone Bariatrics from Last 3 Months Surgical History Surgery [...] MESH performed by Carol Kumar MD at [facility] [place] Medical devices from this surgery are i n the Implants section. UPPER GASTROINTESTINAL 11/28/2020 Esophagus/N/A ESOPHAG OGASTRODUODENOSCOPY WITH SPECIMEN ENDOSCOPY COLLECTION BY BRUSHING/ WAS IMELDA performed by Carol Kumar MD at [facility] [place] Medical devices from this surgery are i n the Implants section. ELECTROCARDIOGRAM DOPPLER ECHOCARDIOGRAPHY RHYTHM DEVICE PLACEMENT CARDIOVERSION TRANSESOPHAGEAL ECHO CARDIAC CATHERIZATION Medical History Medical History Date Comments GERD (gastroesophageal reflux disease) Hypothyroidism Atrial fibrillation (HCC) Reina esophagus Endometriosis History of 2019 novel coronavirus 06/2020 disease (COVID-19) Hiatal hernia 10/17/2020 Recurrent; lap HH r epair, ? Fundoplication 2019 in [place]. Pacemaker 2011 CVA (cerebral vascular accident) (HCC) 2011 Left side weakness Congestive heart disease (HCC) Lightheadedness Dizziness MELISSA (obstructive sleep apnea) Heart attack (HCC) 12/03/2020 [facility] Gastroparesis 05/09/2021 Family History Medical History Relation [...] ot Implanted Type Area Manufactur er 05/12/2021 [id number] / [id number] / [id number] [id number] Soft Tissue 10x7cm Matristem N/A: Abdomen AC [employer] Porcine Urinary Bladder Dup1 - [id number] Implanted: Qty: 1 on 11/28/2020 by Carol Kumar MD at [facility] Procedures Comments Procedure Name Priority Date/Time Associated Diag nosis DEVICE EVALUATION - Routine 06/29/2021 Sinus node dysfunction REMOTE PPM CHARGES 10:11 AM BOX TENDER (HCC) DEVICE EVALUATION - Routine 06/03/2021 Sinus node dysfunction REMOTE PPM 8:21 AM BOX TENDER (HCC) DEVICE EVALUATION - Routine 05/29/2021 Sinus node dysfunction REMOTE PPM CHARGES 5:16 PM BOX TENDER (HCC) DEVICE EVALUATION - PPM Routine 05/14/2021 Cardia c pacemaker in situ 8:54 AM CDT ECG-SCAN 05/14/2021 12:00 AM CDT from Last 3 Months Results * DEVICE EVALUATION - REMOTE PPM CHARGES (06/29/2021 10:11 AM BOX TENDER) Device Type IPG MURJ Generator Dinglepharbtronic MURJ Filler Feeder Generator Model ADDR01 MURJ # Generator [id number] MURJ Serial # EP DEVICE 05/14/21: Requested remote MURJ PATIENT NOTES transfer from [facility] [phone]. -bh Pacemaker no MURJ Dependant On yes MURJ Anticoagulation EP SYSTEM MRI no MURJ CONDITIONAL Modality Anatomical Region Laterality MAC CV Heart Rhythm Specimen Narrative MURJ - 07/16/2021 7:37 AM BOX TENDER [06/13/2021 11:54:23 AM - RED BLUM] Update: Jose Miguel Seals spoke with patient and she said that she is having weird palpitations, chest tightness and HR 43 and irregular. Patient was in the ED when Jose Miguel spoke with patient. Title: Unscheduled Remote: Unknown * Patient transmitted for unknown reason. Unscheduled [facility] ppm transmission received today. I called and LM asking patient to call back and let us know why she sent an unscheduled transmission. I told her the next scheduled one was 08/16/21. * Alerts or Events: 0 * Battery: [place], 1.58 yrs * Sensing, impedance and thresholds reviewed * Programmed parameters reviewed * Presenting rhythm AP-VS 67 bpm * Heart Rate Histograms reviewed * No significant changes noted Title: Tachycardia: Mode Switch * 3 mode switches all < 30 seconds each. No episode list or egms available for mode switch episode < 30 seconds in this device. Title: Tachycardia: High Ventricular Rate * 2 V High Rate episodes, longest 3 seconds. Rates 150 to 180 bpm. Egms showed 1:1 AT. Performing Organization Address City/[facility]/ZIP Code [place] Number MURJ * DEVICE EVALUATION - REMOTE PPM NO CHARGES (06/03/2021 8:21 AM BOX TENDER) Device Type IPG MURJ Generator Medtronic MURJ Filler Feeder Generator Model ADDR01 MURJ # Generator [id number] MURJ Serial # EP DEVICE 05/14/21: Requested remote MURJ PATIENT NOTES transfer from [facility] [phone]. -bh Pacemaker no MURJ Dependant On yes MURJ Anticoagulation EP SYSTEM MRI no MURJ CONDITIONAL Modality Anatomical Region Laterality MAC CV Heart Rhythm Specimen Narrative MURJ - 07/09/2021 11:12 AM BOX TENDER Title: Unscheduled Remote: Unknown * Patient transmitted for unknown reason * Alerts or Events: 0 * Battery: [place], 1.67 yrs * Sensing, impedance and thresholds reviewed * Programmed parameters reviewed * Presenting rhythm: AP-VS 60's with some PVC's on the strip. * Heart Rate Histograms reviewed * No significant changes noted BICYCLE ASSEMBLER 0.5% Title: Non-sustained Ventricular Tachycardia * Stored EGMs are consistent with or suggestive of SVT with run of brief SVT <3 seconds. Title: Unscheduled Remote * Reason: Patient sent in a remote due to increased chest tightness and palpitations * Alerts or Events: No new episodes since last remote 05/31/21 * Battery: 19 months * Sensing, impedance and thresholds reviewed * Programmed parameters reviewed * Presenting rhythm: AP-VS 68 bpm * Heart Rate Histograms show good rate distribution * No significant changes noted Performing Organization Address City/State/ZIP Code [place] Number MURJ * DEVICE EVALUATION - REMOTE PPM CHARGES (05/29/2021 5:16 PM BOX TENDER) Device Type IPG MURJ Generator Medtronic MURJ Filler Feeder Generator Model ADDR01 MURJ # Generator [id number] MURJ Serial # EP DEVICE 05/14/21: Requested remote MURJ PATIENT NOTES transfer from [facility] [phone]. - Pacemaker no MURJ Dependant On yes MURJ Anticoagulation EP SYSTEM MRI no MURJ CONDITIONAL Modality Anatomical Region Laterality MAC CV Heart Rhythm Specimen Narrative MURJ - 05/24/2021 12:18 PM BOX TENDER Title: Normal Remote: No Events # Initial [...] City/State/ZIP Code [place] Number MURJ * DEVICE EVALUATION - PPM (05/14/2021 8:54 AM CDT) Generator Medtronic MURJ Filler Feeder Generator [id number] MURJ Serial # Generator Model Adapta ADDR01 MURJ # Generator [id number] MURJ Implnat Date Pacemaker no MURJ Dependant On yes MURJ Anticoagulation EP SYSTEM MRI no MURJ CONDITIONAL Device Type IPG MURJ Modality Anatomical Region Laterality [facility] CV Heart Rhythm Specimen Narrative MURJ - 05/24/2021 12:18 PM BOX TENDER Title: Normal In-Office: No Events # KU [...] AM CDT Ordered by an unspecified provider. from Last 3 Months Insurance Type Payer Benefit Subscriber ID Effective Phone Address Plan / Dates Group HMO [facility] [id number] 2020-P [phone] [id number] [place] [address] Advance Directives Patient Line Therapist Explanation Type Date Recorded Advance 11/29/2020 2:09 PM Directive/DPOA Date Inactivated Comments Code Status Date Activated 12/01/2020 6:15 PM Full Code 11/28/2020 6:20 PM Provider has discussed Code Status No, more discussi on w/Patient or Family? needed Care Teams Start Date End Date Travel Occupational Therapist Relationship Specialty 10/12/20 Heriberto Nunn MD PCP - General Family [address], [place] [id number] 10/17/20 Alan Jackson MD CCP - Gastroentero [address] [place] [address] 12/27/20 Thania Ruvalcaba MD CCP - Cardiovascul [address] [place] [address] Care Provider
--- OUTSIDE RECORDS SUMMARY | 2021-08-06 07:58 | XMS REPORT | Encounter Summary ---
Author Author [facility] Organization [facility] Address Unknown Phone Unavailable Care Team Providers Care Dispatcher Service Name Role Phone Heriberto Nunn MD PCP Alan Jackson MD [phone] Thania Ruvalcaba MD [phone] Reason for Visit * Reason Onset Date Comments Remote Monitoring 06/24/2021 Verified with pt th at remote to be transferred to Dr Daigle in [facility]. Encounter Details Care Team Description Date Type Department Katey Alanis RN Remote Monitoring Transferred (Verified with pt that remote to be transferred to Dr Daigle in [facility]. ) 06/24/2021 Telephone Cardiology: [facility] [address], [address] [place] [address] Social History Date Tobacco Use [...] encounter Care Teams Start Date End Date Dispatcher Service Relationship Specialty 10/12/20 Heriberto Nunn MD PCP - [address] [address] 10/17/20 Alan Jackson MD CCP - [facility] [address] Continuity of logy [facility] [address] [place] [address] 12/27/20 Thania Ruvalcaba MD CCP - Cardiovascul [address] [place] [address] Care Provider documented as of this encounter
--- OUTSIDE RECORDS SUMMARY | 2021-08-06 07:58 | XMS REPORT | Encounter Summary ---
Author Author [facility] Organization [facility] Address Unknown Phone Unavailable Care Team Providers Care Grocery Shopper Name Role Phone Heriberto Nunn MD PCP Alan Jackson MD [phone] Thania Ruvalcaba MD [phone] Encounter Details Care Team Description Date Type Department Jose Miguel Seals RN 06/13/2021 Telephone Cardiology: [facility] [address] [place] [address], [address] [place] [address] Social History Date Tobacco Use [...] encounter Miscellaneous Notes * Telephone Encounter - Jose Miguel Seals RN - 06/13/2021 12:01 PM PROPERTY DEVELOPER Called patient. She is in the emergency room for treatment. Will let us know w hen she is discharged. ERTY DEVELOPER * Telephone Encounter - Jose Miguel Seals RN - 06/13/2021 11:11 AM PROPERTY DEVELOPER Called significant other. He hasn't talked to patient in the last hour. But is going to call and check on her and have her call us back. ERTY DEVELOPER * Telephone Encounter - Jose Miguel Seals RN - 06/13/2021 11:07 AM PROPERTY DEVELOPER Called patient. LVM for return call. ERTY DEVELOPER * Telephone Encounter - Jose Miguel Seals RN - 06/13/2021 11:04 AM PROPERTY DEVELOPER ----- Message from Anita Nguyen LPN sent at 06/13/2021 10:34 AM PROPERTY DEVELOPER ----- Regarding: MPE- chest tightness VM on triage line from patient at 10:07am. Said that she is having weird palpitations, chest tightness and HR 43 and irregu lar. Call her at #[phone]. ERTY DEVELOPER documented in this encounter Plan of Treatment [...] encounter Care Teams Start Date End Date Grocery Shopper Relationship Specialty 10/12/20 Heriberto Nunn MD PCP - [id number] [place] [address] 10/17/20 Alan Jackson MD CCP - [facility] [address] Continuity [facility] 6 [place] [address] 12/27/20 Thania Ruvalcaba MD CCP - Cardiovascul [address] [place] [address] Care Provider documented as of this encounter
--- OUTSIDE RECORDS SUMMARY | 2021-08-06 07:58 | XMS REPORT | Encounter Summary ---
Author Author [facility] Organization [facility] Address Unknown Phone Unavailable Care Team Providers Care Bilingual Administrative Assistant Name Role Phone Heriberto Nunn MD PCP Alan Jackson MD [phone] Thania Ruvalcaba MD [phone] Reason for Visit * Reason Onset Date Comments Follow Up 06/23/2021 Encounter Details Care Team Description Date Type Department Anay Hutson RN Follow Up 06/23/2021 Telephone Cardiology: [facility] [address], [address] [place] [address] Social History Date Tobacco Use [...] encounter Miscellaneous Notes * Telephone Encounter - Anay Hutson RN - 06/23/2021 5:58 PM REGRINDER ----- Message from Carol Costa RN sent at 06/22/2021 7:52 AM REGRINDER ----- Regarding: Pt sent another remote- 06/20. No new events. Looks good. In actionable, saved. Just a heads up incase she calls. Thanks, Isabella INDER documented in this encounter Plan of Treatment [...] encounter Care Teams Start Date End Date Bilingual Administrative Assistant Relationship Specialty 10/12/20 Heriberto Nunn MD PCP - [facility] [address] [place] [address] 10/17/20 Alan Jackson MD CCP - [facility] [address] Contin[facility] [address] [address] Care Provider [place], [place] [phone] 12/27/20 Thania Ruvalcaba MD CCP - Cardiovascul [address] [place] [address] Care Provider documented as of this encounter
--- OUTSIDE RECORDS SUMMARY | 2021-08-06 07:58 | XMS REPORT | Encounter Summary ---
Author Author [facility] Organization [facility] Address Unknown Phone Unavailable Care Team Providers Care Dock Guard Name Role Phone Heriberto Nunn MD PCP Alan Jackson MD [phone] Thania Ruvalcaba MD [phone] Reason for Visit * Reason Onset Date Comments Remote ICD/PM Check 06/13/2021 Encounter Details Care Team Description Date Type Department Red Trivedi Remote ICD/PM Check 06/13/2021 Telephone Cardiology: [facility], [address] [place] [address]. [address], [address] [place] [address] Social History Date Tobacco Use [...] Encounter - ShikhaRed - 06/13/2021 10:04 AM APPLICATIONS INTERN Unscheduled Carelink ppm transmission received today. I called and LM asking loli alejandra to call back and let us know why she sent an unscheduled transmission. I to ld her the next scheduled one was 08/16/21. ICATIONS INTERN documented in this encounter Plan of Treatment [...] encounter Care Teams Start Date End Date Dock Guard Relationship Specialty 10/12/20 Heriberto Nunn MD PCP - [address] [address] 10/17/20 Alan Jackson MD CCP - [facility] [address] Continuity of log[facility] [place] [address] [place] [address] 12/27/20 Thania Ruvalcaba MD CCP - Cardiovascul [address] [place] [address] Care Provider documented as of this encounter
--- OUTSIDE RECORDS SUMMARY | 2021-08-06 07:58 | XMS REPORT | Encounter Summary ---
Author Author [facility] Organization [facility] Address Unknown Phone Unavailable Care Team Providers Care Multimedia Journalist Name Role Phone Heriberto Nunn MD PCP Alan Jackson MD [phone] Thania Ruvalcaba MD [phone] Encounter Details Care Team Description Date Type Department 06/13/2021 Hospital Cardi[facility] Encounter Remote Device Check [phone] Social History Date Tobacco Use Types Packs/Day [...] every 4 hours as needed 03/25/2021 rizatriptan ([facility] [employer] REPRESENTATIVE) 0 10 mg rapid dissolve tablet 12/01/2020 [...] node dysfunction REMOTE PPM CHARGES 10:11 AM FIELD STAFF ([facility]) documented in this encounter Results * DEVICE EVALUATION - REMOTE PPM CHARGES (06/29/2021 10:11 AM FIELD STAFF) Device Type IPG MURJ Generator [employer] MURJ Records Assistant Generator Model [id number] MURJ # Generator [id number] MURJ Serial # EP DEVICE 05/14/21: Requested remote MURJ PATIENT NOTES transfer from [facility] [phone]. -bh Pacemaker no MURJ Dependant On yes MURJ Anticoagulation EP SYSTEM MRI no MURJ CONDITIONAL Modality Anatomical Region Laterality MAC CV Heart Rhythm Specimen Narrative MURJ - 07/16/2021 7:37 AM FIELD STAFF [06/13/2021 11:54:23 AM - KIMO BLUM] Update: Jose Miguel Seals spoke with [...] Egms showed 1:1 AT. Performing Organization Address City/State/ZIP Code P phil[place] Number MURJ documented in this encounter Visit Diagnoses Not on filedocumented in this encounter Additional Health Concerns Noted Time Assessment 12/01/2020 9:34 AM CDT A fall risk assessment has been complet ed for the patient 05/14/2021 7:55 AM CDT PHQ-2 Depression Total Score: 0 documented as of this encounter Care Teams Start Date End Date Multimedia Journalist Relationship Specialty 10/12/20 Heriberto Nunn MD PCP - [address] [id number] 10/17/20 Alan Jackson MD CCP - [facility] [address] Continuity [facility] logy [facility] [address] [place] [address] 12/27/20 Thania Ruvalcaba MD CCP - Cardiovascul [address] [place] [address] Care Provider documented as of this encounter
[2021-08-06] MEDS ORDERED: KETOROLAC 30 MG/ML VIAL IM ONE (08:45)
--- NOTE | 2021-08-06 09:07 | ED Cough/URI ---
General Chief Complaint: Cough/Cold/Flu Symptoms Stated Complaint: COUGH,LIGHTHEADED,KRAFT Nursing Triage Note: DX WITH FLU 3 WEEKS AGO CON'T TO HAVE COUGH AND CONGESTION WAS POS FOR FLU NEG FOR COVID WAS IN LINE TO BE TESTED AND WAS TOLD BY HER DR TO COME ED FOR CT SCAN AND COVID TEST. Source: patient Exam Limitations: no limitations History of Present Illness Date Seen by Provider: Aug 06, 2021 Time Seen by Provider: 08:30 Initial Comments Patient is a 56-year-old female who presents to the emergency department today with a chief complaint of 2 weeks of cough, upper respiratory congestion, dizziness, intermittent headache, "brain fog", decreased appetite, muscle aches. She states this feels similar to when she had Covid in June 2020. Patient was tested 2 weeks ago at her nurse practitioner's office, tested positive for influenza. Subsequently underwent 2 rounds of antibiotics as well as a prednisone course. Her nurse practitioner has been prescribing her cough medicine should. Her most recent prescription was yesterday she has not filled it yet. She states she has been taking esfo-sen-dotkycf Mucinex and Tylenol. Last dose of Tylenol was this morning. Patient states she intermittently starts feeling a little bit better and then her symptoms worsen, as they have starting a couple of days ago. Patient called today and was advised to come to the emergency department by her nurse practitioner. She describes global headache n ot worsened by position or activity. Nasal congestion, nonproductive cough. She is not a smoker and never has been 1. She has been using some inhalers for her breathing. Patient states she has not been taking her medications for her A. fib/hypertension/CHF secondary to profound fatigue and sleeping a lot recently. No problems with bowel or bladder other than some bright red blood in her stool which she states is chronic. She has a history of gastroparesis. She has had 2 recent negative Covid tests. No sick contacts with Covid that she is aware of. All other review of systems reviewed and negative except as stated. Timing/Duration: other (2 weeks) Severity/Quality: moderate, dry cough Modifying Factors: Improves With Albuterol Inhaler Associated Symptoms: cough, dizziness, headache, lightheadedness, muscle aches, nasal congestion, shortness of breath, sore throat Allergies and Home Medications Allergies Coded Allergies: Latex, Natural Rubber (Unverified Allergy, Intermediate, Shortness of Breath, 09/27/20) Patient Home Medication List Home Medication List Reviewed: Yes Apixaban (Eliquis) 5 Mg Tablet, 5 MG PO DAILY, (Reported) Entered as Reported by: CINTHIA CLARK on 09/27/20 1147 Clonidine HCl (Clonidine HCl) 0.1 Mg Tablet, 0.1 MG PO BID, (Reported) Entered as Reported by: CINTHIA CLARK on 03/22/21 1155 Dexlansoprazole (Dexilant) 60 Mg , 60 MG PO DAILY, (Reported) Entered as Reported by: LEOBARDO CARLIN on 12/04/20 1427 Famotidine (Pepcid) 20 Mg Tablet, 20 MG PO BID Prescribed by: KINGSLEY DAY on 03/17/21 1243 Fluticasone Propionate (Fluticasone Propionate) 16 Gm [place].susp, 1 SPRAY NSEACH BID PRN for CONGESTION, (Reported) Entered as Reported by: LEOBARDO CARLIN on 12/04/20 1427 Furosemide (Furosemide) 20 Mg Tablet, 20 MG PO DAILY, (Reported) Entered as Reported by: CINTHIA CLARK on 03/22/21 1155 Hydrocodone/Acetaminophen (Hydrocodone-Acetamin 5-325 mg) 1 Each Tablet, 1 TAB PO Q6H PRN for PAIN-MODERATE (5-7) Prescribed by: ANDREE BUTT on 01/16/21 1124 Levothyroxine Sodium (Levothyroxine Sodium) 100 Mcg Tablet, 100 MCG PO DAILY, (Reported) Entered as Reported by: LEOBARDO CARLIN on 12/04/20 1427 Multivitamin (Multivitamin) 1 Each Tablet, 1 EACH PO DAILY, (Reported) Entered as Reported by: CINTHIA CLARK on 03/22/21 1155 Sucralfate (Carafate) 1 Gm Tablet, 1 GM PO QID Prescribed by: KINGSLEY DAY on 03/17/21 1243 Review of Systems Review of Systems Constitutional: malaise EENTM: nose congestion, throat pain Respiratory: cough, short of breath Cardiovascular: no symptoms reported Gastrointestinal: other (blood in stool) Genitourinary: no symptoms reported Musculoskeletal: muscle cramps Skin: no symptoms reported Psychiatric/Neurological: Headache All Other Systems Reviewed Negative Unless Noted: Yes Past Obqbhcp-Uhdtau-Nnwcbq Hx Patient Social History Tobacco Use?: No Use of E-Cig and/or Vaping dev: No Substance use?: No Alcohol Use?: No Pt feels they are or have been: No Immunizations Up To Date Tetanus Booster (TDap): Less than 5yrs PED Vaccines UTD: Yes Seasonal Allergies Seasonal Allergies: Yes Past Medical History Surgery/Hospitalization HX: SX: CARDIAC ABLATION, APPY, GALLBLADDER, DNC, PACEMAKER, HERNIA REPAIR Surgeries: Yes (DNC'S, LAPAROSCOPY, UVULA REMOVED, hernia repair) Appendectomy, Bladder Surgery, Cardiac, Gallbladder, Hysterectomy, Pacemaker, Tonsillectomy Respiratory: No Cardiac: Yes (ABLATION, CHF) Atrial Fibrillation, Valvular Heart Disease Neurological: Yes Headaches /Migraines 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 oz. 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 as tested, no motor/sensory deficits, alert, normal mood/affect, oriented x 3, other (Normal yukfoj-cd-ifug, negative pronator drift, gait/no ataxia) Skin: normal color, warm/dry Progress/Results/Core Measures Suspected Sepsis SIRS Temperature: Pulse: 79 Respiratory Rate: 18 Blood Pressure 143 /94 Mean: 110 Results/Orders Lab Results Laboratory Tests Test 08/06/21 08:32 Range/Units My Orders Orders - ANDREE BUTT MD Coronavirus Sars-Cov-2 So 2019 (08/06/21 08:39) Chest 1 View, Ap/Pa Only (08/06/21 08:39) Ketorolac Injection (Toradol Injection) (08/06/21 08:45) Medications Given in ED Current Medications Medications Dose Ordered Sig/Giselle Route Start Time Stop Time Status Last Admin Dose Admin Ketorolac Tromethamine 30 mg ONCE ONCE IM 08/06/21 08:45 08/06/21 08:46 DC 08/06/21 09:09 30 MG Vital Signs/I&O 08/06/21 08:07 Temp 37.2 Pulse 79 Resp 18 B/P (MAP) 143/94 (110) Pulse Ox 98 O2 Delivery Room Air Capillary Refill : Blood Pressure Mean: 110 Progress Note : Time: 09:55 Progress Note Chest x-ray is negative for any acute pathology. Vital signs are stable. Oxygenation is good. Covid test is pending as it is the send out. Patient is t reated with Toradol IM here in the emergency department. Recommend supportive care at home, quarantine until Covid results are back. Return precautions given. Diagnostic Imaging Diagonstic Imaging: Xray Plain Films/CT/US/NM/MRI: chest Comments [facility], [facility]. [place], [place] NAME: OLESYA NEVES [facility] REC#: [id number] PT STATUS: REG ER : 1965 PHYSICIAN: ANDREE BUTT MD ADMIT DATE: 08/06/21/ER Draft Date of Exam:08/06/21 CHEST 1 VIEW, AP/PA ONLY INDICATION: Recent diagnosis of fluid, 3 weeks ago with continued cough and congestion.. TECHNIQUE: Single view chest 9:41 AM. CORRELATION STUDY: 06/13/2021 FINDINGS: The heart size remains mildly enlarged. The mediastinal configuration and pulmonary vascularity are within normal limits. Left-sided pacemaker stable. The lungs are clear with no consolidating infiltrate. There is no significant effusion or pneumothorax. IMPRESSION: 1. Negative for acute abnormality of the chest. Dictated on workstation # [id number] Dict: 08/06/2147 Trans: 08/06/2148 [id number] Interpreted by: LUCY GRAJEDA DO Electronically signed by: Departure Impression Primary Impression: Person under investigation for COVID-19 Additional Impression: Viral syndrome Disposition: HOME, SELF-CARE Condition: Stable Departure-Patient Inst. Referrals: JIMY BENNETT MD (PCP/Family) Primary Care Physician Patient Instructions: VIRAL SYNDROME Add. Discharge Instructions: Please fill your prescriptions for cough medicine written by your nurse practitioner. Continue to take Tylenol and/or ibuprofen as needed for headache, body aches and any temperature over 100.4. You will need to quarantine until you get your Covid results from the hospital tomorrow. Continue Mucinex ympk-zpw-rddmjuz for congestion, you can also take DayQuil or NyQuil for symptomatic relief of cold symptoms. Nasal saline sprays as needed for nasal congestion. Return to the emergency department for any new, concerning or emergent complaints. Follow-up with your primary care/nurse practitioner next week. ANDREE BUTT MD Aug 06, 2021 09:07
--- NOTE | 2021-08-06 09:49 | Diagnostic Imaging Report ---
INDICATION: Recent diagnosis of fluid, 3 weeks ago with continued cough and congestion.. TECHNIQUE: Single view chest 9:41 AM. CORRELATION STUDY: 06/13/2021 FINDINGS: The heart size remains mildly enlarged. The mediastinal configuration and pulmonary vascularity are within normal limits. Left-sided pacemaker stable. The lungs are clear with no consolidating infiltrate. There is no significant effusion or pneumothorax. IMPRESSION: 1. Negative for acute abnormality of the chest. Dictated by: Dictated on workstation # [id number]
[2021-08-06 10:16] VITALS: BP 143/94
== END 2021-08-06 10:22 | disposition home or self-care (01) ==
LOC: EDUNIT# 07:52 → ER 07:53
DX: U07.1 COVID-19 (principal); I11.0 Hypertensive heart disease with heart failure; I50.9 Heart failure, unspecified; I48.91 Unspecified atrial fibrillation; Z91.040 Latex allergy status
CPT/HCPCS: 71045; 87635; 99284

== ENCOUNTER → 2021-08-06 | Outpatient (CLI) | payer BC | LOC: LABNPT 06:28 | PROVIDERS: ATTEND Otolaryngology Otolaryngology/Facial Plastic Surgery | DX: G47.33 Obstructive sleep apnea (adult) (pediatric) (principal) ==

== ENCOUNTER 2021-08-12 14:51 | Emergency (ER) | payer BC ==
[~2021-08-12] VITALS: Ht 162.6 cm; Wt 86.6 kg
[2021-08-12] MEDS ORDERED: FLUTICASONE 200 MCG IH STA (15:07)
[2021-08-12] MEDS ORDERED: NITROGLYCERIN 2% OINT 1 GM UNIT DOSE PACKET TOP STA (15:07)
--- NOTE | 2021-08-12 15:14 | ED Respiratory ---
General Stated Complaint: COVID +/CHEST PAIN/HEADACHE Source: patient Exam Limitations: no limitations History of Present Illness Date Seen by Provider: Aug 12, 2021 Time Seen by Provider: 14:59 Initial Comments 56-year-old female with past medical history of A. fib with pacemaker, hypertension, hyperlipidemia, CHF coming in day 8 of symptoms for COVID, 6 days after a positive test with continued cough, congestion, headache, and now chest pain. The pain is in the center of her chest, has been constant, moderate, sharp, worse with coughing. She believes it is mostly due to the excessive coughing but she is unsure and that is why she wanted to get checked out. She denies having any stents in her heart. Has not taken anything for the pain. Is otherwise denying any other acute complaints including abdominal pain, vomiting, dysuria, rash, weakness, numbness, neck stiffness, or any other concerns. Allergies and Home Medications Allergies Coded Allergies: Latex, Natural Rubber (Unverified Allergy, Intermediate, Shortness of Breath, 09/27/20) Patient Home Medication List Home Medication List Reviewed: Yes Apixaban (Eliquis) 5 Mg Tablet, 5 MG PO DAILY, (Reported) Entered as Reported by: CINTHIA CLARK on 09/27/20 1147 Clonidine HCl (Clonidine HCl) 0.1 Mg Tablet, 0.1 MG PO BID, (Reported) Entered as Reported by: CINTHIA CLARK on 03/22/21 1155 Dexlansoprazole (Dexilant) 60 Mg Cap., 60 MG PO DAILY, (Reported) Entered as Reported by: LEOBARDO CARLIN on 12/04/20 1427 Famotidine (Pepcid) 20 Mg Tablet, 20 MG PO BID Prescribed by: KINGSLEY DAY on 03/17/21 1243 Fluticasone Propionate (Fluticasone Propionate) 16 Gm [place].susp, 1 SPRAY NSEACH BID PRN for CONGESTION, (Reported) Entered as Reported by: LEOBARDO CARLIN on 12/04/20 1427 Furosemide (Furosemide) 20 Mg Tablet, 20 MG PO DAILY, (Reported) Entered as Reported by: CINTHIA CLARK on 03/22/21 1155 Hydrocodone/Acetaminophen (Hydrocodone-Acetamin 5-325 mg) 1 Each Tablet, 1 TAB PO Q6H PRN for PAIN-MODERATE (5-7) Prescribed by: ANDREE BUTT on 01/16/21 1124 Levothyroxine Sodium (Levothyroxine Sodium) 100 Mcg Tablet, 100 MCG PO DAILY, (Reported) Entered as Reported by: LEOBARDO CARLIN on 12/04/20 1427 Multivitamin (Multivitamin) 1 Each Tablet, 1 EACH PO DAILY, (Reported) Entered as Reported by: CINTHIA CLARK on 03/22/21 1155 Sucralfate (Carafate) 1 Gm Tablet, 1 GM PO QID Prescribed by: KINGSLEY DAY on 03/17/21 1243 Review of Systems Review of Systems Constitutional: No chills, No fever EENTM: No blurred vision Respiratory: cough, short of breath Cardiovascular: chest pain Gastrointestinal: No abdominal pain; diarrhea; No nausea, No vomiting Genitourinary: no symptoms reported Musculoskeletal: no symptoms reported Skin: no symptoms reported Psychiatric/Neurological: No Symptoms Reported Hematologic/Lymphatic: No Symptoms Reported Immunological/Allergic: no symptoms reported All Other Systems Reviewed Negative Unless Noted: Yes Past Avhwvgp-Rakdut-Zalkut Hx Patient Social History Tobacco Use?: No Immunizations Up To Date Tetanus Booster (TDap): Less than 5yrs PED Vaccines UTD: Yes Seasonal Allergies Seasonal Allergies: Yes Past Medical History Surgery/Hospitalization HX: SX: CARDIAC ABLATION, APPY, GALLBLADDER, DNC, PACEMAKER, HERNIA REPAIR Surgeries: Yes (DNC'S, LAPAROSCOPY, UVULA REMOVED, hernia repair) Appendectomy, Bladder Surgery, Cardiac, Gallbladder, Hysterectomy, Pacemaker, Tonsillectomy Respiratory: No Cardiac: Yes (ABLATION, CHF) Atrial Fibrillation, Valvular Heart Disease Neurological: Yes Headaches /Migraines [employer]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 oz. kg; 33.00 BMI Method: General Appearance: WD/WN, no apparent distress HEENT: PERRL/EOMI, normal ENT inspection, pharynx normal Neck: non-tender, full range of motion, supple, normal inspection Respiratory: chest non-tender, lungs clear, normal breath sounds, no respiratory distress, no accessory muscle use Cardiovascular: regular rate, rhythm, no edema, no murmur Gastrointestinal: normal bowel sounds, non tender, soft; No distended, No guar ding, No rebound Extremities: normal range of motion, non-tender, normal inspection, no pedal edema, no calf tenderness, normal capillary refill Neurologic/Psychiatric: no motor/sensory deficits, alert, normal mood/affect Skin: normal color, warm/dry Lymphatic: no adenopathy Progress/Results/Core Measures Suspected Sepsis SIRS Temperature: Pulse: Respiratory Rate: Laboratory Tests 08/12/21 15:10: White Blood Count 9.6 Blood Pressure / Mean: Laboratory Tests 08/12/21 15:10: Creatinine 0.75, INR Comment 1.0, Platelet Count 264, Total Bilirubin 0.4 Results/Orders Lab Results Laboratory Tests Test 08/12/21 15:10 Range/Units White Blood Count 9.6 4.3-11.0 10^3/uL Red Blood Count 4.84 3.80-5.11 10^6/uL Hemoglobin 13.8 11.5-16.0 g/dL Hematocrit 41 35-52 % Mean Corpuscular Volume 84 80-99 fL Mean Corpuscular Hemoglobin 29 25-34 pg Mean Corpuscular Hemoglobin Concent 34 32-36 g/dL Red Cell Distribution Width 13.2 10.0-14.5 % Platelet Count 264 130-400 10^3/uL Mean Platelet Volume 10.0 9.0-12.2 fL Immature Granulocyte % (Auto) 1 % Neutrophils (%) (Auto) 62 42-75 % Lymphocytes (%) (Auto) 30 12-44 % Monocytes (%) (Auto) 5 0-12 % Eosinophils (%) (Auto) 1 0-10 % Basophils (%) (Auto) 0 0-10 % Neutrophils # (Auto) 5.9 1.8-7.8 10^3/uL Lymphocytes # (Auto) 2.9 1.0-4.0 10^3/uL Monocytes # (Auto) 0.5 0.0-1.0 10^3/uL Eosinophils # (Auto) 0.1 0.0-0.3 10^3/uL Basophils # (Auto) 0.0 0.0-0.1 10^3/uL Immature Granulocyte # (Auto) 0.1 0.0-0.1 10^3/uL Prothrombin Time 14.0 12.2-14.7 SEC INR Comment 1.0 0.8-1.4 Activated Partial Thromboplast Time 31 24-35 SEC Sodium Level 141 135-145 MMOL/L Potassium Level 3.5 L 3.6-5.0 MMOL/L Chloride Level 107 98-107 MMOL/L Carbon Dioxide Level 20 L 21-32 MMOL/L Anion Gap 14 5-14 MMOL/L Blood Urea Nitrogen 12 7-18 MG/DL Creatinine 0.75 0.60-1.30 MG/DL Estimat Glomerular Filtration Rate 95 BUN/Creatinine Ratio 16 Glucose Level 139 H 70-105 MG/DL Calcium Level 9.2 8.5-10.1 MG/DL Corrected Calcium 9.0 8.5-10.1 MG/DL Magnesium Level 2.2 1.6-2.4 MG/DL Total Bilirubin 0.4 0.1-1.0 MG/DL Aspartate Amino Transf (AST/SGOT) 24 5-34 U/L Alanine Aminotransferase (ALT/SGPT) 42 0-55 U/L Alkaline Phosphatase 117 40-136 U/L Troponin I < 0.028 <0.028 NG/ML B-Type Natriuretic Peptide 32.8 <100.0 PG/ML Total Protein 7.6 6.4-8.2 GM/DL Albumin 4.3 3.2-4.5 GM/DL My Orders Orders - MATT HESS MD Cbc With Automated Diff (08/12/21 15:07) Magnesium (08/12/21 15:07) Chest 1 View, Ap/Pa Only (08/12/21 15:07) Ekg Tracing (08/12/21 15:07) Comprehensive Metabolic Panel (08/12/21 15:07) Protime With Inr (08/12/21 15:07) Partial Thromboplastin Time (08/12/21 15:07) O2 (08/12/21 15:07) Monitor-Rhythm Ecg Trace Only (08/12/21 15:07) Ed Iv/Invasive Line Start (08/12/21 15:07) Bnp [place] (08/12/21 15:07) Troponin I [place] (08/12/21 15:07) Nitroglycerin Ointment (Nitrobid Ointme (08/12/21 15:07) Aspirin Chewable Tablet (Baby Aspirin Ch (08/12/21 15:15) Fluticasone Furoate 200 Mcg (Arnuity Ell (08/12/21 15:07) Medications Given in ED Current Medications Medications Dose Ordered Sig/Giselle Route Start Time Stop Time Status Last Admin Dose Admin Aspirin 324 mg ONCE ONCE PO 08/12/21 15:15 08/12/21 15:16 DC 08/12/21 15:29 324 MG Vital Signs/I&O 08/12/21 14:58 Temp 37.0 Pulse 83 Resp 20 B/P (MAP) 169/118 (135) O2 Delivery Room Air Capillary Refill : Progress Note : Progress Note 56-year-old female with above history coming in due to cough with now chest pain in the setting of being Covid positive. ABCs were intact and vitals were stable on presentation. Physical exam reassuring with no focal abnormalities including she is well-appearing and breathing comfortably. An IV was placed and basic labs were obtained including cardiac biomarkers as well as chest x-ray and EKG ordered due to her chest pain. Trialed fluticasone inhaler given her COVID diagnosis with cough and shortness of breath. ECG Initial ECG Impression Date: Aug 12, 2021 Initial ECG Impression Time: 15:17 Initial ECG Rate: 63 Initial ECG Rhythm: Normal Sinus Comment Atrially paced rhythm, narrow QRS, normal axis, no significant ST changes, T wave flattening in lead III with inversions in V1 and V2 Departure Impression Primary Impression: Chest pain Qualified Codes: R07.9 - Chest pain, unspecified Additional Impressions: COVID-19 Pneumonia Qualified Codes: J18.9 - Pneumonia, unspecified organism Disposition: 01 HOME, SELF-CARE Condition: Stable Departure-Patient Inst. Decision time for Depature: 16:18 Referrals: JIMY BENNETT MD (PCP/Family) Primary Care Physician Patient Instructions: COVID-19 (DC) Add. Discharge Instructions: He was seen in the emergency department for your continued symptoms with COVID. It is possible you have a developing pneumonia on your left lung which can cause some chest discomfort as well. We will send some antibiotics to your pharmacy which she will take for the next 5 days. Please follow-up with your regular doctor if symptoms do not improve. Scripts Azithromycin (Azithromycin) 250 Mg Tablet 250 MG PO DAILY for 4 Days, #4 TAB Prov: MATT HESS MD 08/12/21 MATT HESS MD Aug 12, 2021 15:14
[2021-08-12] MEDS ORDERED: ASPIRIN 81 MG CHEW (CHILDREN'S ASA) PO ONE (15:15)
[2021-08-12 15:25] LABS: BASOPHILS % (AUTO) 0 % (0-10); EOSINOPHILS # (AUTO) 0.1 10^3/uL (0.0-0.3); EOSINOPHILS % (AUTO) 1 % (0-10); HEMATOCRIT 41 % (35-52); HEMOGLOBIN 13.8 g/dL (11.5-16.0); LYMPHOCYTES # (AUTO) 2.9 10^3/uL (1.0-4.0); LYMPHOCYTES % (AUTO) 30 % (12-44); MEAN CORPUSCULAR HEMOGLOBIN 29 pg (25-34); MEAN CORPUSCULAR HGB CONC 34 g/dL (32-36); MEAN CORPUSCULAR VOLUME 84 fL (80-99); MONOCYTES # (AUTO) 0.5 10^3/uL (0.0-1.0); MONOCYTES % (AUTO) 5 % (0-12); NEUTROPHILS # (AUTO) 5.9 10^3/uL (1.8-7.8); NEUTROPHILS % (AUTO) 62 % (42-75); PLATELET COUNT 264 10^3/uL (130-400); WHITE BLOOD COUNT 9.6 10^3/uL (4.3-11.0)
[2021-08-12 15:32] LABS: ALBUMIN 4.3 GM/DL (3.2-4.5); POTASSIUM 3.5 MMOL/L (3.6-5.0)
[2021-08-12 15:33] LABS: CALCIUM 9.2 MG/DL (8.5-10.1)
[2021-08-12 15:35] LABS: TOTAL PROTEIN 7.6 GM/DL (6.4-8.2)
[2021-08-12 15:36] LABS: BILIRUBIN,TOTAL 0.4 MG/DL (0.1-1.0)
[2021-08-12 15:38] LABS: CREATININE SERUM 0.75 MG/DL (0.60-1.30)
[2021-08-12 15:41] LABS: MAGNESIUM 2.2 MG/DL (1.6-2.4)
--- NOTE | 2021-08-12 15:58 | Diagnostic Imaging Report ---
INDICATION: Chest pain and tightness. EXAMINATION: Chest on 08/12/2021. COMPARISON: 08/06/2021. FINDINGS: There is a left-sided pacemaker, stable in appearance. The heart is minimally prominent. The pulmonary vasculature is normal. There is atelectasis versus infiltrate at the left lung base. There are no significant effusions. There is no pneumothorax. IMPRESSION: Possible atelectasis versus infiltrate at the left lung base. Correlate with symptoms. Dictated by: Dictated on workstation # [id number]
[2021-08-12] MEDS ORDERED: AZIT250T12 PO (16:21)
[2021-08-12 16:30] VITALS: BP 133/84
[2021-08-12] MEDS ORDERED: AZITHROMYCIN 250 MG TAB (ZITHROMAX) PO ONE (16:30)
== END 2021-08-12 16:30 | disposition home or self-care (01) ==
LOC: EDUNIT# 14:51 → ER 14:53
DX: U07.1 COVID-19 (principal); J12.82 Pneumonia due to coronavirus disease 2019; I11.0 Hypertensive heart disease with heart failure; I50.9 Heart failure, unspecified; I48.91 Unspecified atrial fibrillation; E89.0 Postprocedural hypothyroidism; G89.29 Other chronic pain; M54.9 Dorsalgia, unspecified; L40.9 Psoriasis, unspecified; Z73.0 Burn-out; Z95.0 Presence of cardiac pacemaker; Z88.8 Allergy status to other drugs, medicaments and biological substances; Z79.01 Long term (current) use of anticoagulants; Z79.890 Hormone replacement therapy; Z79.899 Other long term (current) drug therapy
CPT/HCPCS: 36415; 71045; 80053; 83735; 83880; 84484; 85025; 85610; 85730; 93005; 93041

== ENCOUNTER 2021-08-15 20:06 | Emergency (ER) | payer BC ==
[~2021-08-15] VITALS: Ht 162 cm; Wt 87.5 kg
[~2021-08-15 20:06] MED LIST changes: +AZIT250T12 PO
--- NOTE | 2021-08-15 20:27 | ED General ---
General Stated Complaint: IRR HEART RATE/SWEATING/CHEST TIGHTNESS Source of Information: Patient Exam Limitations: No Limitations (PIERRE JOSEPH APRN) History of Present Illness Date Seen by Provider: Aug 15, 2021 Time Seen by Provider: 20:22 Initial Comments to ER with intermittent sweating, irregular heart rate, intermittent chest tightness. She began feeling poorly earlier so she checked her fingertip pulse oximeter at home and it said that her heart rate was 38. She has a pacemaker. Symptoms began earlier today. She became symptomatic with Covid on 08/04/2021. She tested positive on 08/06/2021. She comes in tonight with the aforementioned symptoms. She is unvaccinated against Covid. History of atrial fibrillation in November of this year following hiatal hernia repair at the [facility]. She was cardioverted to sinus rhythm electrically here and had a cardiac catheterization on that visit showing a mild to moderate coronary disease without intervention needed. She is on Eliquis for her atrial fibrillation Timing/Duration: 4-6 Hours Severity: Moderate Associated Systoms: Denies Symptoms (PIERRE JOSEPH APRN) Allergies and Home Medications Allergies Coded Allergies: Latex, Natural Rubber (Unverified Allergy, Intermediate, Shortness of Breath, 09/27/20) Patient Home Medication List Home Medication List Reviewed: Yes (PIERRE JOSEPH APRN) Apixaban (Eliquis) 5 Mg Tablet, 5 MG PO DAILY, (Reported) Entered as Reported by: CINTHIA CLARK on 09/27/20 1147 Azithromycin (Azithromycin) 250 Mg Tablet, 250 MG PO DAILY Prescribed by: MATT HESS on 08/12/21 1621 Clonidine HCl (Clonidine HCl) 0.1 Mg Tablet, 0.1 MG PO BID, (Reported) Entered as Reported by: CINTHIA CLARK on 03/22/21 1155 Dexlansoprazole (Dexilant) 60 Mg , 60 MG PO DAILY, (Reported) Entered as Reported by: LEOBARDO CARLIN on 12/04/20 1427 Famotidine (Pepcid) 20 Mg Tablet, 20 MG PO BID Prescribed by: KINGSLEY DAY on 03/17/21 1243 Fluticasone Propionate (Fluticasone Propionate) 16 Gm [place].susp, 1 SPRAY NSEACH BID PRN for CONGESTION, (Reported) Entered as Reported by: LEOBARDO CARLIN on 12/04/20 1427 Furosemide (Furosemide) 20 Mg Tablet, 20 MG PO DAILY, (Reported) Entered as Reported by: CINTHIA CLARK on 03/22/21 1155 Hydrocodone/Acetaminophen (Hydrocodone-Acetamin 5-325 mg) 1 Each Tablet, 1 TAB PO Q6H PRN for PAIN-MODERATE (5-7) Prescribed by: ANDREE BUTT on 01/16/21 1124 Levothyroxine Sodium (Levothyroxine Sodium) 100 Mcg Tablet, 100 MCG PO DAILY, (Reported) Entered as Reported by: LEOBARDO CARLIN on 12/04/20 1427 Multivitamin (Multivitamin) 1 Each Tablet, 1 EACH PO DAILY, (Reported) Entered as Reported by: CINTHIA CLARK on 03/22/21 1155 Sucralfate (Carafate) 1 Gm Tablet, 1 GM PO QID Prescribed by: KINGSLEY DAY on 03/17/21 1243 Review of Systems Review of Systems Constitutional: see HPI, chills, malaise EENTM: see HPI Respiratory: see HPI, cough, short of breath Cardiovascular: see HPI, chest pain Genitourinary: no symptoms reported Musculoskeletal: no symptoms reported Skin: no symptoms reported Psychiatric/Neurological: No Symptoms Reported Hematologic/Lymphatic: No Symptoms Reported Immunological/Allergic: no symptoms reported (PIERRE JOSEPH APRN) Past Rdcecea-Ivheoj-Mdrgjg Hx Immunizations Up To Date Tetanus Booster (TDap): Less than 5yrs PED Vaccines UTD: Yes First/Initial COVID19 Vaccinat: NONE Second COVID19 Vaccination Arley: NONE Third COVID19 Vaccination Date: NONE (PIERRE JOSEPH APRN) Seasonal Allergies Seasonal Allergies: Yes (PIERRE JOSEPH APRN) Past Medical History Surgery/Hospitalization HX: SX: CARDIAC ABLATION, APPY, GALLBLADDER, DNC, PACEMAKER, HERNIA REPAIR PMH: AFIB, CHF Surgeries: Yes (DNC'S, LAPAROSCOPY, UVULA REMOVED, hernia repair) Appendectomy, Bladder Surgery, Cardiac, Gallbladder, Hysterectomy, Pacemaker, Tonsillectomy Respiratory: No Cardiac: Yes (ABLATION, CHF) Atrial Fibrillation, Valvular Heart Disease Neurological: Yes Headaches /Migraines X [employer]MENT [employer] History: Hysterectomy, 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, Menopausal Genitourinary: No (BLADDER SLING) Gastrointestinal: Yes Reina's Esophagus Musculoskeletal: Yes Chronic Back Pain Endocrine: Yes Hypothyroidsim HEENT: No Cancer: Yes (PRE CANCER POLYPS) Colon Psychosocial: Yes Depression Integumentary: Yes Eczema, Psoriasis Blood Disorders: No (PIERRE JOSEPH APRN) Family Medical History Colon cancer Noncontributory (PIERRE JOSEPH APRN) Physical Exam Vital Signs Vital Signs - First Documented 08/15/21 20:10 Temp 35.9 Pulse 66 Resp 18 B/P (MAP) 172/95 (120) Pulse Ox 98 O2 Delivery Room Air (BREANNA,JANETTE K DO) Vital Signs Capillary Refill : (PIERRE JOSEPH APRN) Height, Weight, BMI Height: '" Weight: lbs. oz. kg; 32.00 BMI Method: General Appearance: No Apparent Distress, WD/WN, Anxious, Other (Oxygen 98% on room air heart rate is 60-65 sinus no ectopy blood pressure 175/98. Anxious appearing.) Eyes: Bilateral Eye Normal Inspection, Bilateral Eye PERRL, Bilateral Eye EOMI Neck: Full Range of Motion, Normal Inspection Respiratory: No Accessory Muscle Use, No Respiratory Distress Cardiovascular: Regular Rate, Rhythm, Normal Peripheral Pulses Gastrointestinal: Normal Bowel Sounds, Non Tender, Soft Extremity: Normal Capillary Refill, Normal Inspection Neurologic/Psychiatric: Alert, Oriented x3 Skin: Normal Color, Warm/Dry (PIERRE JOSEPH APRN) Progress/Results/Core Measures Suspected Sepsis SIRS Temperature: Pulse: Respiratory Rate: Laboratory Tests 08/15/21 20:18: White Blood Count 8.0 Blood Pressure / Mean: Laboratory Tests 08/15/21 20:18: Creatinine 1.28, INR Comment 1.0, Platelet Count 268, Total Bilirubin 0.3 (PIERRE JOSEPH APRN) Results/Orders Lab Results Laboratory Tests Test 08/15/21 20:18 Range/Units White Blood Count 8.0 4.3-11.0 10^3/uL Red Blood Count 5.00 3.80-5.11 10^6/uL Hemoglobin 14.3 11.5-16.0 g/dL Hematocrit 43 35-52 % Mean Corpuscular Volume 86 80-99 fL Mean Corpuscular Hemoglobin 29 25-34 pg Mean Corpuscular Hemoglobin Concent 33 32-36 g/dL Red Cell Distribution Width 13.1 10.0-14.5 % Platelet Count 268 130-400 10^3/uL Mean Platelet Volume 10.2 9.0-12.2 fL Immature Granulocyte % (Auto) 1 % Neutrophils (%) (Auto) 48 42-75 % Lymphocytes (%) (Auto) 44 12-44 % Monocytes (%) (Auto) 6 0-12 % Eosinophils (%) (Auto) 2 0-10 % Basophils (%) (Auto) 0 0-10 % Neutrophils # (Auto) 3.9 1.8-7.8 10^3/uL Lymphocytes # (Auto) 3.5 1.0-4.0 10^3/uL Monocytes # (Auto) 0.5 0.0-1.0 10^3/uL Eosinophils # (Auto) 0.1 0.0-0.3 10^3/uL Basophils # (Auto) 0.0 0.0-0.1 10^3/uL Immature Granulocyte # (Auto) 0.0 0.0-0.1 10^3/uL Prothrombin Time 13.2 12.2-14.7 SEC INR Comment 1.0 0.8-1.4 Activated Partial Thromboplast Time 32 24-35 SEC Sodium Level 139 135-145 MMOL/L Potassium Level 3.8 3.6-5.0 MMOL/L Chloride Level 104 98-107 MMOL/L Carbon Dioxide Level 22 21-32 MMOL/L Anion Gap 13 5-14 MMOL/L Blood Urea Nitrogen 14 7-18 MG/DL Creatinine 1.28 0.60-1.30 MG/DL Estimat Glomerular Filtration Rate 50 BUN/Creatinine Ratio 11 Glucose Level 127 H 70-105 MG/DL Calcium Level 9.5 8.5-10.1 MG/DL Corrected Calcium 9.3 8.5-10.1 MG/DL Magnesium Level 2.0 1.6-2.4 MG/DL Total Bilirubin 0.3 0.1-1.0 MG/DL Aspartate Amino Transf (AST/SGOT) 17 5-34 U/L Alanine Aminotransferase (ALT/SGPT) 38 0-55 U/L Alkaline Phosphatase 144 H 40-136 U/L Myoglobin 26.4 10.0-92.0 NG/ML Troponin I < 0.028 <0.028 NG/ML C-Reactive Protein High Sensitivity 0.17 0.00-0.50 MG/DL B-Type Natriuretic Peptide 29.1 <100.0 PG/ML Total Protein 7.9 6.4-8.2 GM/DL Albumin 4.3 3.2-4.5 GM/DL (BREANNAJANETTE Etta VALLEJO) My Orders Orders - BREANNAJANETTE Etta VALLEJO Ekg Tracing (08/15/21 20:17) Monitor-Rhythm Ecg Trace Only (08/15/21 20:17) (JANETTE CARLOS DO) Medications Given in ED Current Medications Medications Dose Ordered Sig/Giselle Route Start Time Stop Time Status Last Admin Dose Admin Acetaminophen/ Hydrocodone Bitart 1 ea Q4H PRN PO 08/15/21 21:15 08/15/21 21:15 DC 08/15/21 21:08 1 EA Aspirin 324 mg ONCE ONCE PO 08/15/21 20:30 08/15/21 20:31 DC 08/15/21 20:29 324 MG (BREANNAJANETTE Etta VALLEJO) Vital Signs/I&O 08/15/21 08/15/21 08/15/21 20:10 20:34 21:12 Temp 35.9 Pulse 66 66 Resp 18 18 B/P (MAP) 172/95 (120) 133/83 Pulse Ox 98 98 O2 Delivery Room Air Room Air Room Air (JANETTE CARLOS DO) Vital Signs/I&O Capillary Refill : (PIERRE JOSEPH APRN) Departure Communication (Admissions) NAME: OLESYA NEVES [facility] REC#: [id number] PT STATUS: REG ER : 1965 PHYSICIAN: PIERRE JOSEPH APRN ADMIT DATE: 08/15/21/ER Draft Date of Exam:08/15/21 CHEST 1 VIEW, AP/PA ONLY INDICATION: Chest pain. TECHNIQUE: Single view chest 8:37 PM. CORRELATION STUDY: 08/12/2021 FINDINGS: Left-sided pacemaker stable. Heart size borderline enlarged but unchanged. Vasculature within normal limits. The lungs are clear with no consolidating infiltrate. There is no significant effusion or pneumothorax. Stomach appears distended with retained gastric contents/gas level. IMPRESSION: 1. Negative for acute abnormality of the chest. Dictated on workstation # [id number] Dict: 08/15/212039 Trans: 08/15/212040 DO [id number] Interpreted by: LUCY GRAJEDA DO Electronically signed by: (PIERRE JOSEPH APRN) Impression Primary Impression: COVID-19 Additional Impression: Palpitations Disposition: 01 HOME, SELF-CARE Condition: Stable Departure-Patient Inst. Decision time for Depature: 20:54 (PIERRE JOSEPH APRN) Referrals: JIMY BENNETT MD (PCP/Family) Primary Care Physician Patient Instructions: Palpitations ED Add. Discharge Instructions: 1. Follow-up with your regular doctor later this week. Return to ER for any worsening. ATTENDING PHYSICIAN NOTE: I WAS PHYSICALLY PRESENT ER PHYSICIAN WHEN THIS PATIENT WAS IN ER, BUT I WAS NOT INVOLVED IN ANY DECISION MAKING OR ANY CARE OF THIS PATIENT. (JANETTE CARLOS DO) PIERRE JOSEPH APRN Aug 15, 2021 20:27 JANETTE CARLOS DO Aug 16, 2021 04:49
[2021-08-15 20:29] LABS: BASOPHILS % (AUTO) 0 % (0-10); EOSINOPHILS # (AUTO) 0.1 10^3/uL (0.0-0.3); EOSINOPHILS % (AUTO) 2 % (0-10); HEMATOCRIT 43 % (35-52); HEMOGLOBIN 14.3 g/dL (11.5-16.0); LYMPHOCYTES # (AUTO) 3.5 10^3/uL (1.0-4.0); LYMPHOCYTES % (AUTO) 44 % (12-44); MEAN CORPUSCULAR HEMOGLOBIN 29 pg (25-34); MEAN CORPUSCULAR HGB CONC 33 g/dL (32-36); MEAN CORPUSCULAR VOLUME 86 fL (80-99); MEAN PLATELET VOLUME 10.2 fL (9.0-12.2); MONOCYTES # (AUTO) 0.5 10^3/uL (0.0-1.0); MONOCYTES % (AUTO) 6 % (0-12); NEUTROPHILS # (AUTO) 3.9 10^3/uL (1.8-7.8); NEUTROPHILS % (AUTO) 48 % (42-75); PLATELET COUNT 268 10^3/uL (130-400)
[2021-08-15] MEDS ORDERED: ASPIRIN 81 MG CHEW (CHILDREN'S ASA) PO ONE (20:30)
--- NOTE | 2021-08-15 20:41 | Diagnostic Imaging Report ---
INDICATION: Chest pain. TECHNIQUE: Single view chest 8:37 PM. CORRELATION STUDY: 08/12/2021 FINDINGS: Left-sided pacemaker stable. Heart size borderline enlarged but unchanged. Vasculature within normal limits. The lungs are clear with no consolidating infiltrate. There is no significant effusion or pneumothorax. Stomach appears distended with retained gastric contents/gas level. IMPRESSION: 1. Negative for acute abnormality of the chest. Dictated by: Dictated on workstation # [id number]
[2021-08-15 20:42] LABS: ALBUMIN 4.3 GM/DL (3.2-4.5); CHLORIDE 104 MMOL/L (98-107); POTASSIUM 3.8 MMOL/L (3.6-5.0); PROTHROMBIN TIME PATIENT 13.2 SEC (12.2-14.7); SODIUM 139 MMOL/L (135-145)
[2021-08-15 20:43] LABS: CALCIUM 9.5 MG/DL (8.5-10.1)
[2021-08-15 20:45] LABS: GLUCOSE 127 MG/DL (70-105); TOTAL PROTEIN 7.9 GM/DL (6.4-8.2)
[2021-08-15 20:46] LABS: CARBON DIOXIDE 22 MMOL/L (21-32)
[2021-08-15 20:47] LABS: BILIRUBIN,TOTAL 0.3 MG/DL (0.1-1.0)
[2021-08-15 20:48] LABS: ALKALINE PHOSPHATASE 144 U/L (40-136)
[2021-08-15 20:49] LABS: CREATININE SERUM 1.28 MG/DL (0.60-1.30); GFR ESTIMATED 50
[2021-08-15 20:50] LABS: BUN/CREATININE RATIO 11
[2021-08-15 20:52] LABS: ALANINE AMINOTRANSFERASE 38 U/L (0-55)
[2021-08-15 21:12] VITALS: BP 133/83
== END 2021-08-15 21:15 | disposition home or self-care (01) ==
LOC: EDUNIT# 20:06 → ER 20:08
DX: U07.1 COVID-19 (principal); R00.2 Palpitations; I50.9 Heart failure, unspecified; I48.91 Unspecified atrial fibrillation; E03.9 Hypothyroidism, unspecified; G89.29 Other chronic pain; M54.9 Dorsalgia, unspecified; Z79.890 Hormone replacement therapy; Z79.01 Long term (current) use of anticoagulants; Z79.891 Long term (current) use of opiate analgesic; Z79.899 Other long term (current) drug therapy
CPT/HCPCS: 36415; 71045; 80053; 83735; 83874; 83880; 84484; 85025; 85610; 85730; 86141; 93005; 93041

== ENCOUNTER → 2021-08-23 | Outpatient (CLI) | payer BC ==
[~2021-08-23] MED LIST changes: +ACET-2267 PO; +ALBU1.25 NEB; +DOCU100C37 PO; +DRON400T6 PO; +FISH1CAP15 PO; +FLUT100B INH; +LEVO112T55 PO; +MTC10T PO; +POTA10TA PO; +RIVA20TA2 PO; +RT-ALBUINH INH; +TOPI50TA13 PO; +VIT1TAB.12 PO; +VITA100T8 PO; +WHEA1POW6 PO
== END ==
LOC: LABNPT 06:53
PROVIDERS: ATTEND Otolaryngology Otolaryngology/Facial Plastic Surgery
DX: Z53.9 Procedure and treatment not carried out, unspecified reason (principal)

== ENCOUNTER → 2021-08-23 | Outpatient (CLI) | payer BC | LOC: LABNPT 07:01 | PROVIDERS: ATTEND Otolaryngology Otolaryngology/Facial Plastic Surgery | DX: Z53.9 Procedure and treatment not carried out, unspecified reason (principal) ==

== ENCOUNTER 2021-08-25 09:37 | Inpatient (IN) | payer BC ==
[~2021-08-25] VITALS: Ht 162.5 cm; Wt 88.0 kg
[2021-08-25] VITALS (7 sets, daily range): BP systolic 118–160; BP diastolic 83–116
[~2021-08-25 09:37] MED LIST changes: -ACET-2267 PO; -ALBU1.25 NEB; -DOCU100C37 PO; -DRON400T6 PO; -FISH1CAP15 PO; -FLUT100B INH; -LEVO112T55 PO; -MTC10T PO; -POTA10TA PO; -RIVA20TA2 PO; -RT-ALBUINH INH; -TOPI50TA13 PO; -VIT1TAB.12 PO; -VITA100T8 PO; -WHEA1POW6 PO
[2021-08-25] MEDS ORDERED: ADENOSINE 6 MG/2 ML (ADENOCARD) VIAL IV ONE ×3 (10:13→10:15)
--- NOTE | 2021-08-25 10:17 | Diagnostic Imaging Report ---
CLINICAL INDICATIONS: Patient with intermittent chest pain 2 hours prior to arrival. Patient with history of A-fib. EXAM: Portable chest x-ray upright view. COMPARISON: Chest x-ray dated 08/15/2021. FINDINGS: Lungs/pleura: Lungs are clear. There is no pneumothorax. There is no pleural effusion. Mediastinum: Unremarkable. Pulmonary vasculature: Unremarkable. Heart: Upper limits of normal heart size. Again seen, cardiac pacemaker overlying the left chest.. Bones/extrathoracic soft tissue: There are degenerative spurs involving the thoracic spine. IMPRESSION: 1: There is no radiographic evidence of acute cardiopulmonary process. 2: There is upper limits of normal heart size. Dictated by: Dictated on workstation # [id number]
[2021-08-25 10:19] LABS: BASOPHILS # (AUTO) 0.1 10^3/uL (0.0-0.1); BASOPHILS % (AUTO) 1 % (0-10); EOSINOPHILS # (AUTO) 0.1 10^3/uL (0.0-0.3); EOSINOPHILS % (AUTO) 1 % (0-10); HEMATOCRIT 46 % (35-52); HEMOGLOBIN 15.5 g/dL (11.5-16.0); LYMPHOCYTES % (AUTO) 39 % (12-44); MEAN CORPUSCULAR HEMOGLOBIN 29 pg (25-34); MEAN CORPUSCULAR HGB CONC 34 g/dL (32-36); MEAN CORPUSCULAR VOLUME 85 fL (80-99); MEAN PLATELET VOLUME 9.9 fL (9.0-12.2); MONOCYTES # (AUTO) 0.6 10^3/uL (0.0-1.0); MONOCYTES % (AUTO) 7 % (0-12); NEUTROPHILS % (AUTO) 52 % (42-75); PLATELET COUNT 233 10^3/uL (130-400); WHITE BLOOD COUNT 7.7 10^3/uL (4.3-11.0)
[2021-08-25 10:30] LABS: ALBUMIN 4.3 GM/DL (3.2-4.5); CHLORIDE 107 MMOL/L (98-107); POTASSIUM 3.6 MMOL/L (3.6-5.0); SODIUM 141 MMOL/L (135-145)
[2021-08-25 10:31] LABS: CALCIUM 9.3 MG/DL (8.5-10.1)
[2021-08-25 10:32] LABS: GLUCOSE 107 MG/DL (70-105); TOTAL PROTEIN 7.7 GM/DL (6.4-8.2)
[2021-08-25 10:33] LABS: CARBON DIOXIDE 21 MMOL/L (21-32)
[2021-08-25 10:34] LABS: BILIRUBIN,TOTAL 0.9 MG/DL (0.1-1.0); INR 1.1 (0.8-1.4); PROTHROMBIN TIME PATIENT 14.3 SEC (12.2-14.7)
[2021-08-25 10:36] LABS: ALKALINE PHOSPHATASE 109 U/L (40-136); CREATININE SERUM 0.74 MG/DL (0.60-1.30); GFR ESTIMATED 96
--- NOTE | 2021-08-25 10:36 | Consultation-Cardiology ---
HPI-Cardiology Cardiology Consultation: Date of Consultation 08/25/2021 Date of Admission 08/25/2021 Attending Physician Admitting Physician Heriberto Nunn MD Consulting Physician CINDA TRIANA JR, MD HPI: Time Seen by a Provider: 10:32 Chief Complaint: THIS IS A HISTORY AND PHYSICAL FOR ADMISSION Chief complaint: Palpitations and chest pain. I had the pleasure of seeing Maria Fernanda in the emergency room at [facility] in [place], [place] this morning. She has a history of atrial fibrillation with 3 previous ablations at outside hospitals in the past. She normally follows with one of my partners in the office, Dr. Ruvalcaba. She was well until last evening when she woke up in the middle the night with palpitations and chest tightness. The symptoms were waxing and waning throughout the night. She did not seek immediate medical attention. This morning when she woke up she was still having palpitations with chest tightness. Her blood pressure was elevated so she took a clonidine tablet which she takes as needed for elevated blood pressures. She also took a nitroglycerin which helped with the chest discomfort. However, since the palpitations and chest discomfort persisted, she came to the emergency room for further evaluation. She was found to be in atrial flutter with 2-1 AV block and a cardiology consultation was requested. She gets some occasional lightheaded spells but denies any syncope. She also gets an occasional, mild ankle edema which is self-limited. Other than when she was having the chest discomfort and shortness of breath last evening, she does not usually have paroxysmal nocturnal dyspnea. She denies orthopnea. She did have Covid approximately 10 days and subsequently developed pneumonia for which she was treated at home. When she got the Covid infection, she stopped taking her Eliquis. She restarted the Eliquis about 1 week ago but admits that she often forgets to take the evening dose. We did administer adenosine 6 mg IV push in the emergency room and is temporarily caused AV block followed by 1 paced beat but within a short period of time, she went back to a rapid ventricular rate. When she had the temporary AV block, the ST segment changes noted on her initial electrocardiogram resolved. We then administered diltiazem 20 mg IV push and this also slowed her ventricular rate but within a short period of time, she again had recurrent tachycardia. Her symptoms did slightly improve following the intravenous diltiazem. Certain portions of this document may have been dictated utilizing voice recognition technology. Inherent to this technology, typographical and grammatical errors may exist. As much as I am diligent to identify and correct these mistakes, some errors may remain in the document. Review of Systems-Cardiology Review of Systems Other comments Review of 10 organ systems is as per the history of present illness, otherwise negative. SJJ-Cwenfn-Ipozxw Hx Patient Social History Smoking Status: Never a Smoker 2nd Hand Smoke Exposure: No Pt feels they are or have been: No Immunizations Up To Date Tetanus Booster (TDap): Less than 5yrs Date of Influenza Vaccine: May 04, 2020 Past Medical History PMH As described under Assessment. Family Medical History Family History: Colon cancer Allergies and Home Medications Allergies Coded Allergies: Latex, Natural Rubber (Unverified Allergy, Intermediate, Shortness of Breath, 09/27/20) Patient Home Medication List Home Medication List Reviewed: Yes Apixaban (Eliquis) 5 Mg Tablet, 5 MG PO DAILY, (Reported) Entered as Reported by: CINTHIA CLARK on 09/27/20 1147 Azithromycin (Azithromycin) 250 Mg Tablet, 250 MG PO DAILY Prescribed by: MATT HESS on 08/12/21 1621 Clonidine HCl (Clonidine HCl) 0.1 Mg Tablet, 0.1 MG PO BID, (Reported) Entered as Reported by: CINTHIA CLARK on 03/22/21 1155 Dexlansoprazole (Dexilant) 60 Mg Cap., 60 MG PO DAILY, (Reported) Entered as Reported by: LEOBARDO CARLIN on 12/04/20 1427 Famotidine (Pepcid) 20 Mg Tablet, 20 MG PO BID Prescribed by: KINGSLEY DAY on 03/17/21 1243 Fluticasone Propionate (Fluticasone Propionate) 16 Gm [place].susp, 1 SPRAY NSEACH BID PRN for CONGESTION, (Reported) Entered as Reported by: LEOBARDO CARLIN on 12/04/20 1427 Furosemide (Furosemide) 20 Mg Tablet, 20 MG PO DAILY, (Reported) Entered as Reported by: CINTHIA CLARK on 03/22/21 1155 Hydrocodone/Acetaminophen (Hydrocodone-Acetamin 5-325 mg) 1 Each Tablet, 1 TAB PO Q6H PRN for PAIN-MODERATE (5-7) Prescribed by: ANDREE BUTT on 01/16/21 1124 Levothyroxine Sodium (Levothyroxine Sodium) 100 Mcg Tablet, 100 MCG PO DAILY, (Reported) Entered as Reported by: LEOBARDO CARLIN on 12/04/20 1427 Multivitamin (Multivitamin) 1 Each Tablet, 1 EACH PO DAILY, (Reported) Entered as Reported by: CINTHIA CLARK on 03/22/21 1155 Sucralfate (Carafate) 1 Gm Tablet, 1 GM PO QID Prescribed by: KINGSLEY DAY on 03/17/21 1243 Exam Vital Signs Vital Signs Date Time Temp Pulse Resp B/P (MAP) Pulse Ox O2 Delivery O2 Flow Rate FiO2 08/25/21 09:38 36.8 123 18 154/123 (133) Physical Exam General: Alert. Mild distress from the chest discomfort. Well nourished and appears stated age. Eye: Extraocular movements are intact. Conjunctivae are clear. There are no xanthelasma. HENT: Normocephalic. Atraumatic. Carotid pulsations 2/2 without bruits. Neck: Jugular venous pressure does not appear elevated. No thyromegaly appreciated. Respiratory: Lungs are clear to auscultation. Respirations are non-labored. Breath sounds are equal. Symmetrical chest wall expansion. Cardiovascular: Tachycardia. Irregular rhythm. No murmur. No gallop. Point of maximal impulse is not appear displaced. Good pulses equal in all extremities. No edema. Gastrointestinal: Soft. Normal bowel sounds. Skin: Skin turgor is normal. There is no pallor. Musculoskeletal: No kyphosis or scoliosis appreciated. Neurologic: Alert and oriented to person, place, time. Cranial nerves 3-12 appear grossly intact. The patient has good motor tone strength in the upper and lower extremities bilaterally. Psychiatric: Cooperative. Appropriate mood & affect. Labs Laboratory Tests Test 08/25/21 10:13 Range/Units White Blood Count 7.7 4.3-11.0 10^3/uL Red Blood Count 5.39 H 3.80-5.11 10^6/uL Hemoglobin 15.5 11.5-16.0 g/dL Hematocrit 46 35-52 % Mean Corpuscular Volume 85 80-99 fL Mean Corpuscular Hemoglobin 29 25-34 pg Mean Corpuscular Hemoglobin Concent 34 32-36 g/dL Red Cell Distribution Width 13.2 10.0-14.5 % Platelet Count 233 130-400 10^3/uL Mean Platelet Volume 9.9 9.0-12.2 fL Immature Granulocyte % (Auto) 0 % Neutrophils (%) (Auto) 52 42-75 % Lymphocytes (%) (Auto) 39 12-44 % Monocytes (%) (Auto) 7 0-12 % Eosinophils (%) (Auto) 1 0-10 % Basophils (%) (Auto) 1 0-10 % Neutrophils # (Auto) 4.0 1.8-7.8 10^3/uL Lymphocytes # (Auto) 3.0 1.0-4.0 10^3/uL Monocytes # (Auto) 0.6 0.0-1.0 10^3/uL Eosinophils # (Auto) 0.1 0.0-0.3 10^3/uL Basophils # (Auto) 0.1 0.0-0.1 10^3/uL Immature Granulocyte # (Auto) 0.0 0.0-0.1 10^3/uL Prothrombin Time 14.3 12.2-14.7 SEC INR Comment 1.1 0.8-1.4 Activated Partial Thromboplast Time 31 24-35 SEC D-Dimer <= 0.27 0.00-0.49 UG/ML Sodium Level 141 135-145 MMOL/L Potassium Level 3.6 3.6-5.0 MMOL/L Chloride Level 107 98-107 MMOL/L Carbon Dioxide Level 21 21-32 MMOL/L Anion Gap 13 5-14 MMOL/L Blood Urea Nitrogen 11 7-18 MG/DL Creatinine 0.74 0.60-1.30 MG/DL Estimat Glomerular Filtration Rate 96 BUN/Creatinine Ratio 15 Glucose Level 107 H 70-105 MG/DL Calcium Level 9.3 8.5-10.1 MG/DL Corrected Calcium 9.1 8.5-10.1 MG/DL Magnesium Level 1.8 1.6-2.4 MG/DL Total Bilirubin 0.9 0.1-1.0 MG/DL Aspartate Amino Transf (AST/SGOT) 25 5-34 U/L Alanine Aminotransferase (ALT/SGPT) 33 0-55 U/L Alkaline Phosphatase 109 40-136 U/L Myoglobin 32.3 10.0-92.0 NG/ML Troponin I < 0.028 <0.028 NG/ML C-Reactive Protein High Sensitivity 0.13 0.00-0.50 MG/DL B-Type Natriuretic Peptide 82.2 <100.0 PG/ML Total Protein 7.7 6.4-8.2 GM/DL Albumin 4.3 3.2-4.5 GM/DL Procalcitonin 0.02 <0.10 NG/ML Thyroid Stimulating Hormone (TSH) 3.89 0.35-4.94 UIU/ML Free Thyroxine 1.07 0.70-1.48 NG/DL ECG Impression ECG Comment Atrial flutter with a ventricular rate of approximately 125 bpm with 2-1 AV block. Diagnosis/Problems Diagnosis/Problems (1) Typical atrial flutter Assessment & Plan: She now has typical atrial flutter. Unfortunately, she has not been taking her apixaban as prescribed at home. From her description, the atrial flutter may have started last evening but she does report that she had been having palpitations off and on ever since having COVID 10 days ago. As such, this could put her at risk of already having atrial thrombus. Because of this, I would recommend that she be admitted to the hospital and I will have her regular cardiac catheterization technician consider transesophageal echocardiogram and cardioversion t omorrow. I will start her on oral diltiazem. I will change her apixaban over to rivaroxaban since this is only once daily and she often just forgets to take the evening dose of apixaban. This should help improve patient compliance with the anticoagulation. There is no indication for antiarrhythmic drug therapy at this time. (2) Paroxysmal atrial fibrillation Assessment & Plan: She had 3 previous ablations for atrial fibrillation. Today she appears to have typical atrial flutter which is not on frequent with atrial fibrillation. We will proceed as above. (3) Sick sinus syndrome Assessment & Plan: She has permanent pacemaker in place that appears to be functioning normally. She will continue with routine monitoring as an outpatient through our office with her regular cardiac catheterization technician. (4) Primary hypertension Assessment & Plan: She was taking clonidine at home and usually only as needed. I will stop the clonidine and start her on diltiazem for the atrial flutter which should also help with her hypertension. (5) Cardiac pacemaker in situ Assessment & Plan: As above, she did have 1 ventricular paced beat when we administered adenosine. She follows with Dr. Ruvalcaba for long-term monitoring of the pacemaker. (6) Obesity Status: Chronic Assessment & Plan: She needs to work on weight loss. There is good data in the literature that shows 20 pounds weight loss helps reduce the risk of recurrent atrial arrhythmias. Problem Qualifiers (1) Obesity: Body mass index: BMI 33.0-33.9 CINDA TRIANA JR, MD Aug 25, 2021 10:36
[2021-08-25 10:37] LABS: BUN/CREATININE RATIO 15
[2021-08-25 10:39] LABS: ALANINE AMINOTRANSFERASE 33 U/L (0-55); MAGNESIUM 1.8 MG/DL (1.6-2.4)
[2021-08-25] MEDS ORDERED: ETOMIDATE IV SOLN 20 MG/10 ML VIAL IV ONE (10:45)
[2021-08-25] MEDS ORDERED: fentaNYL INJ 100 MCG/2 ML AMP IVP ONE (10:45)
[2021-08-25 11:00] LABS: FREE T4 (FREE THYROXINE) 1.07 NG/DL (0.70-1.48)
--- NOTE | 2021-08-25 11:08 | ED Chest Pain ---
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 TOOK X1 SHYANNE AND 1 CLONIDINE FOR B/P Source: patient Exam Limitations: no limitations History of Present Illness Date Seen by Provider: Aug 25, 2021 Time Seen by Provider: 09:49 Initial Comments This 56-year-old woman presents to the emergency room with complaints of chest pain that woke her at around 0200 along with palpitations. She reports being diagnosed with COVID-19 around August 06. She was treated with antibiotics for associated pneumonia. She felt like she had resolved her acute illness. She has no history of coronary artery disease and had no obstruction noted on heart cath November 2020. She feels a little short of breath and discomfort is a little worse with deep breathing. She denies any cough or fever. She reports feeling fatigued yesterday with some minimal chest discomfort. Patient does have a history of atrial fibrillation and is on Eliquis. She has a pacemaker. Her primary curriculum specialist is Dr. Ruvalcaba. Her primary care provider is Dr. Nunn. She did note her blood pressure was elevated this morning and she took ni troglycerin and clonidine. Those meds were taken around 0830 and they did not improve her symptoms. Allergies and Home Medications Allergies Coded Allergies: Latex, Natural Rubber (Unverified Allergy, Intermediate, Shortness of Breath, 09/27/20) Patient Home Medication List Home Medication List Reviewed: Yes Apixaban (Eliquis) 5 Mg Tablet, 5 MG PO DAILY, (Reported) Entered as Reported by: CINTHIA CLARK on 09/27/20 1147 Azithromycin (Azithromycin) 250 Mg Tablet, 250 MG PO DAILY Prescribed by: MATT HESS on 08/12/21 1621 Clonidine HCl (Clonidine HCl) 0.1 Mg Tablet, 0.1 MG PO BID, (Reported) Entered as Reported by: CINTHIA CLARK on 03/22/21 1155 Dexlansoprazole (Dexilant) 60 Mg Cap., 60 MG PO DAILY, (Reported) Entered as Reported by: LEOBARDO CARLIN on 12/04/20 1427 Famotidine (Pepcid) 20 Mg Tablet, 20 MG PO BID Prescribed by: KINGSLEY DAY on 03/17/21 1243 Fluticasone Propionate (Fluticasone Propionate) 16 Gm [place].susp, 1 SPRAY NSEACH BID PRN for CONGESTION, (Reported) Entered as Reported by: LEOBARDO CARLIN on 12/04/20 1427 Furosemide (Furosemide) 20 Mg Tablet, 20 MG PO DAILY, (Reported) Entered as Reported by: CINTHIA CLARK on 03/22/21 1155 Hydrocodone/Acetaminophen (Hydrocodone-Acetamin 5-325 mg) 1 Each Tablet, 1 TAB PO Q6H PRN for PAIN-MODERATE (5-7) Prescribed by: ANDREE BUTT on 01/16/21 1124 Levothyroxine Sodium (Levothyroxine Sodium) 100 Mcg Tablet, 100 MCG PO DAILY, (Reported) Entered as Reported by: LEOBARDO CARLIN on 12/04/20 1427 Multivitamin (Multivitamin) 1 Each Tablet, 1 EACH PO DAILY, (Reported) Entered as Reported by: CINTHIA CLARK on 03/22/21 1155 Sucralfate (Carafate) 1 Gm Tablet, 1 GM PO QID Prescribed by: KINGSLEY DAY on 03/17/21 1243 Review of Systems Review of Systems Constitutional: see HPI EENTM: No Symptoms Reported Respiratory: See HPI Cardiovascular: See HPI Gastrointestinal: No Symptoms Reported Genitourinary: No Symptoms Reported Musculoskeletal: no symptoms reported Skin: no symptoms reported Psychiatric/Neurological: No Symptoms Reported Endocrine: No Symptoms Reported Hematologic/Lymphatic: No Symptoms Reported Past Smwhiev-Wbszta-Vmbhmc Hx Patient Social History Tobacco Use?: No Smoking Status: Never a Smoker Substance use?: No Pt feels they are or have been: No Immunizations Up To Date Tetanus Booster (TDap): Less than 5yrs PED Vaccines UTD: Yes First/Initial COVID19 Vaccinat: NONE Second COVID19 Vaccination Arley: NONE Third COVID19 Vaccination Date: NONE Seasonal Allergies Seasonal Allergies: Yes Past Medical History Surgery/Hospitalization HX: pacemaker, CHF, A-fib, Cardiac cath, 3 cardiac ablasions, hysterectomy, appendectomy, tonsillectomy, titi, hiatal hernia Surgeries: Yes (DNC'S, LAPAROSCOPY, UVULA REMOVED, hernia repair) Appendectomy, Bladder Surgery, Cardiac, Gallbladder, Hysterectomy, Pacemaker, Tonsillectomy Respiratory: No Cardiac: Yes (ABLATION, CHF) Atrial Fibrillation, Valvular Heart Disease Neurological: Yes Headaches /Migraines : 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 oz. kg; 33.00 BMI Method: General Appearance: No Apparent Distress, WD/WN HEENT: PERRL/EOMI, Normal ENT Inspection Neck: Normal Inspection; No JVD Respiratory: Lungs Clear, Normal Breath Sounds, No Accessory Muscle Use Cardiovascular: No Edema, No Murmur, Normal Peripheral Pulses, Tachycardia (Regular) Gastrointestinal: Normal Bowel Sounds, Non Tender, Soft Extremity: Normal Inspection, Non Tender, No Calf Tenderness, No Pedal Edema Neurologic/Psychiatric: Alert, Oriented x3, No Motor/Sensory Deficits, Normal Mood/Affect, court interpreter II-XII Norm as Tested Skin: Normal Color, Warm/Dry Progress/Results/Core Measures Results/Orders Lab Results Laboratory Tests Test 08/25/21 10:13 Range/Units White Blood Count 7.7 4.3-11.0 10^3/uL Red Blood Count 5.39 H 3.80-5.11 10^6/uL Hemoglobin 15.5 11.5-16.0 g/dL Hematocrit 46 35-52 % Mean Corpuscular Volume 85 80-99 fL Mean Corpuscular Hemoglobin 29 25-34 pg Mean Corpuscular Hemoglobin Concent 34 32-36 g/dL Red Cell Distribution Width 13.2 10.0-14.5 % Platelet Count 233 130-400 10^3/uL Mean Platelet Volume 9.9 9.0-12.2 fL Immature Granulocyte % (Auto) 0 % Neutrophils (%) (Auto) 52 42-75 % Lymphocytes (%) (Auto) 39 12-44 % Monocytes (%) (Auto) 7 0-12 % Eosinophils (%) (Auto) 1 0-10 % Basophils (%) (Auto) 1 0-10 % Neutrophils # (Auto) 4.0 1.8-7.8 10^3/uL Lymphocytes # (Auto) 3.0 1.0-4.0 10^3/uL Monocytes # (Auto) 0.6 0.0-1.0 10^3/uL Eosinophils # (Auto) 0.1 0.0-0.3 10^3/uL Basophils # (Auto) 0.1 0.0-0.1 10^3/uL Immature Granulocyte # (Auto) 0.0 0.0-0.1 10^3/uL Prothrombin Time 14.3 12.2-14.7 SEC INR Comment 1.1 0.8-1.4 Activated Partial Thromboplast Time 31 24-35 SEC D-Dimer <= 0.27 0.00-0.49 UG/ML Sodium Level 141 135-145 MMOL/L Potassium Level 3.6 3.6-5.0 MMOL/L Chloride Level 107 98-107 MMOL/L Carbon Dioxide Level 21 21-32 MMOL/L Anion Gap 13 5-14 MMOL/L Blood Urea Nitrogen 11 7-18 MG/DL Creatinine 0.74 0.60-1.30 MG/DL Estimat Glomerular Filtration Rate 96 BUN/Creatinine Ratio 15 Glucose Level 107 H 70-105 MG/DL Calcium Level 9.3 8.5-10.1 MG/DL Corrected Calcium 9.1 8.5-10.1 MG/DL Magnesium Level 1.8 1.6-2.4 MG/DL Total Bilirubin 0.9 0.1-1.0 MG/DL Aspartate Amino Transf (AST/SGOT) 25 5-34 U/L Alanine Aminotransferase (ALT/SGPT) 33 0-55 U/L Alkaline Phosphatase 109 40-136 U/L Myoglobin 32.3 10.0-92.0 NG/ML Troponin I < 0.028 <0.028 NG/ML C-Reactive Protein High Sensitivity 0.13 0.00-0.50 MG/DL B-Type Natriuretic Peptide 82.2 <100.0 PG/ML Total Protein 7.7 6.4-8.2 GM/DL Albumin 4.3 3.2-4.5 GM/DL Thyroid Stimulating Hormone (TSH) 3.89 0.35-4.94 UIU/ML Free Thyroxine 1.07 0.70-1.48 NG/DL My Orders Orders - KINGSLEY CURTIS MD Fibrin Degradation Products (08/25/21 09:49) Procalcitonin (Pct) (08/25/21 09:49) Hs C Reactive Protein (08/25/21 09:49) Cbc With Automated Diff (08/25/21:49) Chest 1 View, Ap/Pa Only (08/25/21:49) Ekg Tracing (08/25/21:49) Protime With Inr (08/25/21:49) Partial Thromboplastin Time (08/25/21:49) O2 (08/25/21:49) Monitor-Rhythm Ecg Trace Only (08/25/21:49) Lipid Panel (08/26/21 06:00) Ed Iv/Invasive Line Start (08/25/21 09:49) Bnp Ayden (08/25/21:49) Troponin I Loving (08/25/21:49) Influenza A & B Antigens (08/25/21 09:53) Comprehensive Metabolic Panel (08/25/21:49) Magnesium (08/25/21:49) Myoglobin Serum (08/25/21:49) Ekg Tracing (08/25/21 10:13) Adenosine Injection (Adenocard Injection (08/25/21 10:15) Adenosine Injection (Adenocard Injection (08/25/21 10:15) Thyroid Stimulating Hormone (08/25/21 10:14) Free T4 (Free Thyroxine) (08/25/21 10:14) Adenosine Injection (Adenocard Injection (08/25/21 10:13) Diltiazem Injection (Cardizem Injection) (08/25/21 10:30) Diltiazem Injection (Cardizem Injection) (08/25/21 10:27) Consult Cardiology (08/25/21 10:33) Etomidate Injection (Amidate Injection) (08/25/21 10:45) Fentanyl Inj (Sublimaze Injection) (08/25/21 10:45) Ed Admission (Communication) (08/25/21 11:01) Medications Given in ED Current Medications Medications Dose Ordered Sig/Giselle Route Start Time Stop Time Status Last Admin Dose Admin Adenosine 6 mg ONCE ONCE IV 08/25/21 10:15 08/25/21 10:16 DC 08/25/21 10:21 6 MG Diltiazem HCl 20 mg ONCE ONCE IVP 08/25/21 10:30 08/25/21 10:31 DC 08/25/21 10:29 20 MG Vital Signs/I&O 08/25/21 09:38 Temp 36.8 Pulse 123 Resp 18 B/P (MAP) 154/123 (133) Blood Pressure Mean: 133 Progress Progress Note : Time: 11:03 Progress Note Patient was seen and examined. EKG revealed a tachycardia in the 120s. Rhythm was regular. There is subtle ST changes when compared with prior. This appears to be atrial flutter. Atrial flutter was confirmed when adenosine was administered and the flutter was unmasked by slowing down the rate. Dr. Whittington was consulted and presented to the ER to assist with care of this patient. A bolus dose of Cardizem was administered. This slowed down the heart rate for a short period of time but did not convert rhythm. Patient desired a cardioversion but she has not been taking her Eliquis consistently since having Covid. She therefore is not eligible for electrocardioversion in the ER. She is being admitted for observation to Dr. Whittington service. EKG #1: EKG Time: 09:41 Rate: 123 Intervals: Normal Comment Tachycardia with regular rhythm suspected to be atrial flutter with 2-[address] changes. This represents a change from prior. EKG does not meet STEMI criteria. EKG #2: EKG Time: 10:19 Rate: 120 Comment EKG was obtained during administration of adenosine. This revealed a brief atrial flutter as QRS complexes spaced out. Baseline heart rate was still around 120. No other new acute changes. Diagnostic Imaging Diagonstic Imaging: Xray Plain Films/CT/US/NM/MRI: chest Comments NAME: OLESYA NEVES [facility] REC#: [id number] PT STATUS: REG ER : 1965 PHYSICIAN: KINGSLEY CURTIS MD ADMIT DATE: 08/25/21/ER Draft Date of Exam:08/25/21 CHEST 1 VIEW, AP/PA ONLY CLINICAL INDICATIONS: Patient with intermittent chest pain 2 hours prior to arrival. Patient with history of A-fib. EXAM: Portable chest x-ray upright view. COMPARISON: Chest x-ray dated 08/15/2021. FINDINGS: Lungs/pleura: Lungs are clear. There is no pneumothorax. There is no pleural effusion. Mediastinum: Unremarkable. Pulmonary vasculature: Unremarkable. Heart: Upper limits of normal heart size. Again seen, cardiac pacemaker overlying the left chest.. Bones/extrathoracic soft tissue: There are degenerative spurs involving the thoracic spine. IMPRESSION: 1: There is no radiographic evidence of acute cardiopulmonary process. 2: There is upper limits of normal heart size. Dictated on workstation # [id number] Dict: 08/25/21 1013 Trans: 08/25/21 1017 [facility] [id number] Interpreted by: FERNANDA TORRES MD Departure Communication (Admissions) Time/Spoke to Admitting Phy: 11:00 Dr. Whittington Impression Primary Impression: Atrial flutter Qualified Codes: I48.92 - Unspecified atrial flutter Additional Impressions: Chest pain Qualified Codes: R07.9 - Chest pain, unspecified Palpitations Disposition: ADMITTED INPATIENT Condition: Stable Admissions Decision to Admit Reason: Admit from ER (General) Decision to Admit/Date: Aug 25, 2021 Time/Decision to Admit Time: 11:00 Departure-Patient Inst. Referrals: JIMY NUNN MD (PCP) Primary Care Physician Copy Copies To 1: ERIKA RUVALCABA MD Copies To 2: JIMY NUNN MD, JOSHUA T MD Aug 25, 2021 11:08
[2021-08-25] MEDS ORDERED: dilTIAZem120 MG (CARDIZEM CD) CAP PO NR (11:15)
[2021-08-25] MEDS ORDERED: morphine INJ 10 MG/ML 1ML (SYR OR VIAL) IVP STA (11:25)
[2021-08-25] MEDS ORDERED: ZOLPIDEM 5 MG (AMBIEN) TAB PO PRN (12:15)
[2021-08-25] MEDS ORDERED: PATIENT MAY USE OWN MEDS, ALL PO SCH (12:15)
[2021-08-25] MEDS ORDERED: ANTACID SUSP 30 ML UDC (MYLANTA) PO PRN (12:15)
--- NOTE | 2021-08-25 12:21 | History & Physical-Hospitalist ---
History of Present Illness HPI/Chief Complaint Chief complaint: A. fib with RVR with chest pain History of present illness: This is a 56-year-old white female with known history of atrial fibrillation who just recovered from Covid 2 weeks ago and has not been on her anticoagulation for 2 weeks who presented to the ER with shortness of breath and palpitations. Patient was found to be in A. fib with RVR. Patient cannot be cardioverted due to noncompliance with oral anticoagulation. When she arrived on the floor she was having chest pain and shortness of breath and felt clammy. CT angiogram performed without evidence of aortic dissection. Patient does not smoke. Source: patient Exam Limitations: clinical condition Date Seen 08/25/21 Time Seen by a Provider: 12:15 Attending Physician Heriberto Nunn MD PCP Heriberto Nunn MD Referring Physician Date of Admission Aug 25, 2021 at 11:05 Home Medications & Allergies Home Medications Reviewed patient Home Medication Reconciliation performed by pharmacy medication reconciliations land mobile radio technician and/or nursing. Patients Allergies have been reviewed. Allergies Allergies Coded Allergies Latex, Natural Rubber (Unverified Allergy, Intermediate, Shortness of Breath, 09/27/20) Past [id number] Hx Patient Social History Marrital Status: single Employed/Student: unemployed Tobacco Use?: No Smoking Status: Never a Smoker Substance use?: No Pt feels they are or have been: No Immunizations Up To Date Date of Influenza Vaccine: May 04, 2020 First/Initial COVID19 Vaccinat: NONE Second COVID19 Vaccination Arley: NONE Tetanus Booster (TDap): Unknown Hepatitis A: Yes Hepatitis B: Yes PED Vaccines UTD: Yes Seasonal Allergies Seasonal Allergies: Yes Current Status Primary Language: Chinese Preferred Spoken Language: Chinese Implanted or Applied Medical D: Pacemaker Past Medical History Surgeries: Appendectomy, Bladder Surgery, Cardiac, Gallbladder, Hysterectomy, Pacemaker, Tonsillectomy Atrial Fibrillation, Valvular Heart Disease Headaches /Migraines 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, 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, Menopausal Reina's Esophagus Chronic Back Pain Hypothyroidsim Colon Depression Eczema, Psoriasis Blood Disorders: No Hypertension Hyperlipidemia Atrial fibrillation Sick sinus syndrome status post pacemaker Hiatal hernia status post surgical repair Obesity Family Medical History Colon cancer Noncontributory Review of Systems Constitutional: see HPI, dizziness, malaise, weakness EENTM: no symptoms reported Respiratory: dyspnea on exertion Cardiovascular: chest pain, palpitations Gastrointestinal: no symptoms reported Genitourinary: no symptoms reported Musculoskeletal: no symptoms reported Skin: no symptoms reported Psychiatric/Neurological: Anxiety All Other Systems Reviewed Negative Unless Noted: Yes Physical Exam Physical Exam Vital Signs Vital Signs - First Documented 08/25/21 08/25/21 09:38 12:05 Temp 36.8 Pulse 123 Resp 18 B/P (MAP) 154/123 (133) Pulse Ox 96 O2 Delivery Room Air Capillary Refill : Less Than 3 Seconds Height, Weight, BMI Height: '" Weight: lbs. oz. kg; 33.00 BMI Method: General Appearance: Anxious, Chronically ill, Mild Distress Respiratory: Lungs Clear, Normal Breath Sounds Cardiovascular: Irregularly Irregular, Tachycardia Neurologic/Psychiatric: Alert, Oriented x3, No Motor/Sensory Deficits, Normal Mood/Affect Results Results/Procedures Labs Laboratory Tests 08/25/21 10:13 08/26/21 05:00 Patient resulted labs reviewed. Assessment/Plan Admission Diagnosis Assessment: A. fib with RVR Chest pain Recent Covid Plan: A. fib management per cardiology CT angiogram no evidence of aortic dissection Post Covid supportive care Admission Status: Inpatient Order (span 2 midnights) Reason for Inpatient Admission: A. fib with RVR and recent Covid Diagnosis/Problems Diagnosis/Problems (1) Chest pain Status: Acute Qualifiers: Chest pain type: unspecified Qualified Codes: R07.9 - Chest pain, unspecified (2) Atrial flutter Qualifiers: Atrial flutter type: unspecified Qualified Codes: I48.92 - Unspecified atrial flutter (3) Palpitations Status: Acute MAYDA TAFOYA DO Aug 25, 2021 12:21
[2021-08-25] MEDS ORDERED: ONDANSETRON 4 MG/2 ML (SDV) Z0FRAN ONE (12:26)
[2021-08-25] MEDS ORDERED: LOPERAMIDE 2 MG (IMODIUM) TABLET PO PRN (12:30)
[2021-08-25] MEDS ORDERED: ONDANSETRON 4 MG/2 ML (SDV) Z0FRAN IVP PRN ×2 (12:30)
[2021-08-25] MEDS ORDERED: DOCUSATE SODIUM 100 MG (COLACE) CAP PO PRN (12:30)
[2021-08-25] MEDS ORDERED: ONDANSETRON 4 MG (ZOFRAN) ORAL DISSOLVE TAB PO PRN (12:30)
[2021-08-25] MEDS ORDERED: ACETAMINOPHEN 500 MG TAB (TYLENOL) PO PRN (12:30)
[2021-08-25] MEDS ORDERED: PANTOPRAZOLE 40 MG (PROTONIX) TAB PO SCH (12:30)
[2021-08-25] MEDS ORDERED: LACTULOSE SYRUP 10GM/15ML (ENULOSE) 30ML UDC PO PRN (12:30)
[2021-08-25] MEDS ORDERED: MELATONIN 3 MG TABLET PO PRN (12:30)
[2021-08-25] MEDS ORDERED: NITROGLYCERIN 0.4 MG SL TABS BTL 25'S SL PRN (12:30)
[2021-08-25] MEDS ORDERED: HYDROmorphone 2 MG/ML VIAL (DILAUDID) IVP PRN (12:30)
[2021-08-25] MEDS ORDERED: guaiFENesin/CODEINE (ROBITUSSIN AC) 10ML UDC PO PRN (12:30)
[2021-08-25] MEDS ORDERED: cloNIDine 0.1 MG (CATAPRES) TAB PO PRN (12:30)
[2021-08-25] MEDS ORDERED: fentaNYL INJ 100 MCG/2 ML AMP IVP NR (12:30)
[2021-08-25] MEDS ORDERED: ALPRAZolam 0.25 MG (XANAX) TAB PO PRN (12:30)
[2021-08-25] MEDS ORDERED: diphenhydrAMINE 25 MG TAB (BENADRYL) PO PRN (12:30)
[2021-08-25] MEDS ORDERED: HOLD METFORMIN - RECEIVED CONTRAST 20 ML VIAL IV SCH (12:45)
[2021-08-25] MEDS ORDERED: NS 100 ML (IVPB) BAG IV ONE (12:45)
[2021-08-25] MEDS ORDERED: IOHEXOL 350 MG/ML 100 ML (OMNIPAQUE 350) VIAL IV ONE (12:45)
--- NOTE | 2021-08-25 15:13 | Diagnostic Imaging Report ---
PROCEDURE: CT angiography of the abdomen and chest with and without contrast. TECHNIQUE: After intravenous administration of contrast, thin section axial CT angiography of the abdomen and chest were obtained. 3D MIP reformats were provided. Auto Exposure Controls were utilized during the CT exam to meet ALARA standards for radiation dose reduction. INDICATION: Aortic dissection, pain. COMPARISON: 06/13/2021 and 03/17/2021. FINDINGS: Pacer device is present with battery pack overlying left chest. No significant adenopathy within the chest. No aneurysmal dilatation, intramural hematoma or dissection associated with the thoracic aorta. Moderate-sized hiatal hernia. Mild mural thickening of the distal esophagus. The heart is mildly enlarged. No significant pericardial effusion. No pleural effusion. The trachea is patent. No pneumothorax. Calcified granuloma are identified within the left lower lobe. The lungs are otherwise clear. Scattered osseous degenerative changes within the chest without acute osseous abnormality. The gallbladder is not visualized, likely surgically absent. The liver and spleen are unremarkable. The adrenal glands are unremarkable. The pancreas is unremarkable. Scarring and cortical thinning within the right kidney. Nonobstructing 7 mm calculus within the inferior pole of the right kidney. The bilateral kidneys and visualized portions of bilateral ureters are otherwise unremarkable. No intramural hematoma, aneurysm or dissection associated with the abdominal aorta. Minimal stenosis involving the proximal superior mesenteric artery. The celiac artery is patent. The inferior mesenteric artery is patent. Three left and a single right renal arteries are present and patent. No evidence of bowel obstruction within the [id number]. Prior appendectomy. No significant adenopathy, free air or free fluid within the abdomen. Mild scattered osseous degenerative changes without acute osseous abnormality. IMPRESSION: Minimal vascular calcifications without acute abnormality associated with the aorta. Minimal stenosis involving the proximal superior mesenteric artery. Nonobstructing right renal calculus. Mild cardiomegaly. Moderate sized hiatal hernia with findings suggestive of esophagitis. Additional postsurgical and chronic findings, as above. Dictated by: Dictated on workstation # [id number]
[2021-08-25] MEDS: SUCRALFATE 1 GM (CARAFATE) TAB PO SCH ×2 (15:59→20:33)
[2021-08-25] MEDS: RIVAROXABAN 20 MG TABLET (XARELTO) PO SCH (15:59)
[2021-08-25] MEDS ORDERED: fentaNYL INJ 100 MCG/2 ML AMP ONE (19:13)
[2021-08-25] MEDS: fentaNYL INJ 100 MCG/2 ML AMP IVP PRN (19:18)
[2021-08-25] MEDS: FAMOTIDINE 20 MG (PEPCID) TABLET PO SCH (20:32)
[2021-08-25] MEDS: SENNA W/DOCUSATE (SENOKOT S) TABLET PO SCH (20:33)
[2021-08-25] MEDS: PANTOPRAZOLE 40 MG (PROTONIX) TAB PO SCH (20:33)
[2021-08-26] VITALS (11 sets, daily range): BP systolic 103–147; BP diastolic 69–113
[2021-08-26 05:21] LABS: BASOPHILS # (AUTO) 0.1 10^3/uL (0.0-0.1); BASOPHILS % (AUTO) 1 % (0-10); EOSINOPHILS # (AUTO) 0.1 10^3/uL (0.0-0.3); EOSINOPHILS % (AUTO) 1 % (0-10); HEMATOCRIT 45 % (35-52); HEMOGLOBIN 15.3 g/dL (11.5-16.0); LYMPHOCYTES # (AUTO) 1.8 10^3/uL (1.0-4.0); LYMPHOCYTES % (AUTO) 22 % (12-44); MEAN CORPUSCULAR HEMOGLOBIN 29 pg (25-34); MEAN CORPUSCULAR HGB CONC 34 g/dL (32-36); MEAN CORPUSCULAR VOLUME 85 fL (80-99); MEAN PLATELET VOLUME 10.5 fL (9.0-12.2); MONOCYTES # (AUTO) 0.5 10^3/uL (0.0-1.0); MONOCYTES % (AUTO) 6 % (0-12); NEUTROPHILS # (AUTO) 5.7 10^3/uL (1.8-7.8); NEUTROPHILS % (AUTO) 70 % (42-75); PLATELET COUNT 228 10^3/uL (130-400); WHITE BLOOD COUNT 8.1 10^3/uL (4.3-11.0)
[2021-08-26] MEDS: SUCRALFATE 1 GM (CARAFATE) TAB PO SCH ×4 (05:29→21:15)
[2021-08-26] MEDS: fentaNYL INJ 100 MCG/2 ML AMP IVP PRN ×2 (05:29→08:50)
[2021-08-26 05:36] LABS: ALBUMIN 3.9 GM/DL (3.2-4.5); POTASSIUM 3.5 MMOL/L (3.6-5.0)
[2021-08-26 05:40] LABS: BILIRUBIN,TOTAL 1.3 MG/DL (0.1-1.0)
[2021-08-26 05:42] LABS: CREATININE SERUM 0.74 MG/DL (0.60-1.30)
[2021-08-26] MEDS: MAGNESIUM 1 GM/100 ML IVPB 100 ML IV SCH (08:00)
[2021-08-26] MEDS ORDERED: LIDOCAINE 2% VISCOUS 15 ML UDC ONE (08:24)
[2021-08-26] MEDS ORDERED: NS IV 1000 ML 1,000 ML ONE (08:24)
[2021-08-26] MEDS ORDERED: MIDAZOLAM 2 MG/2 ML (VERSED) VIAL ONE (08:25)
[2021-08-26] MEDS ORDERED: proPOfol 200 MG/20 ML (DIPRIVAN) VIAL IV ONE (08:25)
[2021-08-26] MEDS: POTASSIUM CL 10MEQ/50ML IVPB 50 ML IV SCH (08:30)
[2021-08-26] MEDS: SENNA W/DOCUSATE (SENOKOT S) TABLET PO SCH ×2 (09:00→21:16)
[2021-08-26] MEDS: KCL 20 MEQ TAB (K-DUR) PO SCH (09:53)
[2021-08-26] MEDS ORDERED: MTC10T PO (10:43)
[2021-08-26] MEDS ORDERED: FISH1CAP15 PO (10:43)
[2021-08-26] MEDS ORDERED: LEVO112T55 PO (10:43)
[2021-08-26] MEDS ORDERED: RT-ALBUINH INH (10:43)
[2021-08-26] MEDS ORDERED: WHEA1POW6 PO (10:43)
[2021-08-26] MEDS ORDERED: TOPI50TA13 PO (10:43)
[2021-08-26] MEDS ORDERED: DIAZ5TAB49 PO (10:43)
[2021-08-26] MEDS ORDERED: FLUT100B INH (10:43)
[2021-08-26] MEDS ORDERED: DOCU100C37 PO (10:43)
[2021-08-26] MEDS ORDERED: VITA100T8 PO (10:43)
[2021-08-26] MEDS ORDERED: VIT1TAB.12 PO (10:43)
[2021-08-26] MEDS ORDERED: FURO20TA4 PO (10:43)
[2021-08-26] MEDS ORDERED: ALBU1.25 NEB (10:43)
[2021-08-26] MEDS ORDERED: CLN.1T PO (10:43)
[2021-08-26] MEDS ORDERED: ACET-2267 PO (10:45)
--- NOTE | 2021-08-26 10:48 | Cardiology Progress Note ---
Subjective Date Seen by Provider: Aug 26, 2021 Time Seen by Provider: 10:44 Subjective/Events-last exam Patient was seen at bedside, laying down comfortably, still tachycardia. Review of Systems General: No Chills, No Night Sweats, No Fatigue, No Malaise, No Appetite, No Other HEENT: No Head Aches, No Visual Changes, No Eye Pain, No Ear Pain, No Dysphasia, No Sinus Congestion, No Post Nasal Drip, No Sore Throat, No Other Pulmonary: Dyspnea; No Cough, No Pleuritic Chest Pain, No Other Cardiovascular: Chest Pain, Palpitations; No: Orthopnea, Paroxysmal Noc. Dyspnea, Edema, Lt Headedness, Other Objective-Cardiology Exam Last Set of Vital Signs Vital Signs 08/26/21 08/26/21 08:20 08:22 Temp 36.6 Pulse 126 Resp 15 B/P (MAP) 147/102 (117) Pulse Ox 94 O2 Delivery Room Air I&O Intake and Output 08/26/21 00:00 Intake Total 550 ml Balance 550 ml Intake Oral 550 ml # Voids 1 Daily Weight Change No General: Alert, Oriented X3, Cooperative HEENT: Atraumatic, PERRLA Neck: Supple, No JVD, No Thyromegaly Lungs: Clear to Auscultation, Normal Air Movement Heart: Normal S1, Normal S2, No Murmurs, Other (atrial flutter) Abdomen: Normal Bowel Sounds, Soft, No Tenderness, No Hepatosplenomegaly, No Masses Extremities: No Clubbing, No Cyanosis, No Edema, Normal Pulses, No Tenderness/Swelling Skin: No Rashes, No Breakdown, No Significant Lesion Neuro: Normal Gait, Normal Speech, Strength at 5/5 X4 Ext, Normal Tone, Sensation Intact Psych/Mental Status: Mental Status NL, Mood NL Results Lab Laboratory Tests 08/26/21 05:00 A/P-Cardiology Admission Diagnosis Paroxysmal atrial flutter Chest pain Palpitation Paroxysmal atrial fibrillation Assessment/Plan Paroxysmal atrial flutter, having tachycardia at this time. Patient was not fully compliant with her oral anticoagulation, I am planning to proceed with LENORE cardioversion. History of paroxysmal atrial fibrillation with total of 3 ablations were done, last procedure was done in 2019 and was an extensive ablation at that time. History of sinus node dysfunction, permanent pacemaker, Medtronic. Had it implanted in [place]. Chest pain nonspecific etiology probably secondary to tachycardia. Patient had a cardiac catheterization done in November 2020 showing normal coronaries with normal LV function History of hiatal hernia and hiatal hernia repair surgery done at [facility] in 2020 GERD, epigastric pain, loss of appetite, had CT abdomen done in the ER on 03/17/21 showing abnormal wall thickening itn ehe region of the GE junction and prox stomach with multiple prominent enlarged superior mesenteric and paraesophageal lymph nodes most concerning for GE junction or prox gastric malignancy. Had EGD done with Dr. Valles in 2020 Generalized fatigue and loss of energy. Hypothyroidism, followed and managed by primary care physician COPD, maintained on bronchodilator. Followed and managed by primary care physician History of Covid 19 infection in June 2020, ERIKA DE LA ROSA MD Aug 26, 2021 10:48
--- NOTE | 2021-08-26 10:49 | Conscious Sedation/ASA ---
Conscious Sedation Pre-Proced Time 10:49 ASA Score 3 For ASA 3 and 4: Consider anesthesia and medical clearance. Also, for patients with a history of failed moderate sedation consider anesthesia. Airway Lungs Heart ASA score ASA 1: a normal healthy patient ASA 2: a patient with a mild systemic disease (mid diabetes, controlled hypertension, obesity x ASA 3: a patient with a severe systemic disease that limits activity (angina, COPD, prior Myocardial infarction) ASA 4: a patient with an incapacitating disease that is a constant threat to life (CHF, renal failure) ASA 5: a moribund patient not expected to survive 24 hrs. (ruptured aneurysm) ASA 6: a declared brain- patient whose organs are being harvested. For emergent operations, add the letter E after the classification Mallampati Classification Grade 3 Sedation Plan Analgesia, Amnesia, Plan communicated to team members, Discussed options with patient/fam, Discussed risks with patient/fam The patient is an appropriate candidate to undergo the planned procedure, sedation, and anesthesia. The patient immediately re-assessed prior to indication. ERIKA DE LA ROSA MD Aug 26, 2021 10:49
--- NOTE | 2021-08-26 11:03 | Cardioversion ---
Cardioversion PROCEDURE PHYSICIAN: Erika Ruvalcaba DATE OF PROCEDURE: 08/26/21 DIRECT EXTERNAL ELECTRICAL CARDIOVERSION: Indications: Atrial flutter with rapid ventricular rate Preoperative diagnoses: Atrial flutter with rapid ventricular rate Postoperative diagnosis: Sinus rhythm, Successful Electrical Cardioversion Anesthesia: By Anesthesia services Complications: None Specimen: None Contrast: 0 Flouroscopy: none Procedure Details: The patient was brought the labels molder after informed consent was taken, all the risks and complications were explained including the risk of stroke. Electrical cardioversion was carried out with anesthesia support with propofol. 200 joules of synchronized shock was delivered through external patches which promptly restored sinus rhythm. The patient tolerated the procedure well. Conclusions: Successful electrical cardioversion and terminating atrial flutter ERIKA RUVALCABA MD Aug 26, 2021 11:03
--- NOTE | 2021-08-26 11:06 | Anesthesia-General Post-Op ---
MAC Patient Condition Mental Status/LOC: Same as Preop Cardiovascular: Satisfactory Nausea/Vomiting: Absent Respiratory: Satisfactory Pain: Controlled Complications: Absent Post Op Complications Complications None Follow Up Care/Instructions Patient Instructions None needed. Anesthesiology Discharge Order Discharge Order Patient is doing well, no complaints, stable vital signs, no apparent adverse anesthesia problems. No complications reported per nursing. ROBIN AGEE CRNA Aug 26, 2021 11:06
[2021-08-26] MEDS ORDERED: KCL 20 MEQ TAB (K-DUR) PO NR (11:15)
--- NOTE | 2021-08-26 12:07 | Diagnostic Imaging Report ---
HISTORY: Post cardioversion. COMPARISON: 08/25/2021. TECHNIQUE: Frontal view of the chest. FINDINGS: There is mildly increased central vascular congestion. The cardiac silhouette is stable in size. Left-sided pacemaker leads appear stable. Multiple leads overlie the chest. There is no pleural effusion or pneumothorax. IMPRESSION: Mildly increased central vascular congestion. Dictated by: Dictated on workstation # [id number]
[2021-08-26] MEDS: PANTOPRAZOLE 40 MG (PROTONIX) TAB PO SCH ×2 (12:19→21:15)
[2021-08-26] MEDS: FAMOTIDINE 20 MG (PEPCID) TABLET PO SCH ×2 (12:19→21:15)
[2021-08-26] MEDS: dilTIAZem120 MG (CARDIZEM CD) CAP PO SCH (12:19)
[2021-08-26] MEDS ORDERED: NS IV 1000 ML 1,000 ML IV ONE (13:15)
[2021-08-26] MEDS ORDERED: LIDOCAINE 2% VISCOUS 15 ML UDC PO ONE (13:15)
--- NOTE | 2021-08-26 16:32 | Progress Note - Hospitalist ---
Subjective HPI/CC On Admission Date Seen by Provider: Aug 26, 2021 Time Seen by Provider: 09:10 Chief complaint: A. fib with RVR with chest pain History of present illness: This is a 56-year-old white female with known his tory of atrial fibrillation who just recovered from Covid 2 weeks ago and has not been on her anticoagulation for 2 weeks who presented to the ER with shortness of breath and palpitations. Patient was found to be in A. fib with RVR. Patient cannot be cardioverted due to noncompliance with oral antic oagulation. When she arrived on the floor she was having chest pain and shortness of breath and felt clammy. CT angiogram performed without evidence of aortic dissection. Patient does not smoke. Subjective/Events-last exam She is having a headache this morning. She also reports some chest discomfort. She denies breathing trouble. She wants to know if she can leave after her ca rdioversion. Objective Exam Vital Signs Vital Signs Date Time Temp Pulse Resp B/P (MAP) Pulse Ox O2 Delivery O2 Flow Rate FiO2 08/26/21 13:25 68 08/26/21 11:32 36.2 16 119/83 (95) 95 Room Air 08/26/21 10:53 8.00 Capillary Refill : Less Than 3 Seconds General Appearance: No Apparent Distress, Obese Respiratory: Lungs Clear, No Respiratory Distress Cardiovascular: Irregularly Irregular, Tachycardia Gastrointestinal: Normal Bowel Sounds, Soft Extremity: Normal Inspection, No Pedal Edema Neurologic/Psychiatric: Alert, Normal Mood/Affect Skin: Normal Color, Warm/Dry Results/Procedures Lab Laboratory Tests 08/26/21 05:00 Patient resulted labs reviewed. Imaging: Reviewed Imaging Report Assessment/Plan Assessment and Plan Assess & Plan/Chief Complaint AFib with RVR HTN SSS s/p pacemaker Cardiology following LENORE cardioversion planned for today Cardizem Metoprolol Xarelto Chest pain Esophagitis GERD Hiatal hernia Troponin normal Recent heart cath without significant lesion Started on PPI Hypothyroidism Continue home meds Diagnosis/Problems Diagnosis/Problems (1) Atrial fibrillation with RVR Status: Acute (2) Sick sinus syndrome (3) Cardiac pacemaker in situ (4) Chest pain Status: Acute Qualifiers: Chest pain type: unspecified Qualified Codes: R07.9 - Chest pain, unspecified (5) Hiatal hernia Status: Acute (6) Esophagitis Status: Acute (7) GERD (gastroesophageal reflux disease) Status: Acute Qualifiers: Esophagitis presence: with esophagitis (8) Hypothyroidism Status: Chronic (9) Hypertension Status: Acute (10) Obesity Status: Chronic Qualifiers: Body mass index: BMI 33.0-33.9 ANDERSON REA MD Aug 26, 2021 16:32
[2021-08-26] MEDS: RIVAROXABAN 20 MG TABLET (XARELTO) PO SCH (17:50)
[2021-08-26] MEDS: ACETAMINOPHEN 325 MG TABLET PO PRN (17:50)
[2021-08-26] MEDS: METOCLOPRAMIDE 10 MG (REGLAN) TAB PO SCH ×2 (17:50→21:16)
[2021-08-26] MEDS: DRONEDARONE 400 MG TABLET PO SCH (21:16)
[2021-08-27] VITALS: BP 102/66
[2021-08-27 04:00] VITALS: BP 101/52
[2021-08-27] MEDS ORDERED: LEVOTHYROXINE 112 MCG (LEVOTHROID) TAB PO SCH (06:30)
[2021-08-27] MEDS: SUCRALFATE 1 GM (CARAFATE) TAB PO SCH ×2 (06:47→11:14)
[2021-08-27 06:51] LABS: POTASSIUM 4.3 MMOL/L (3.6-5.0)
[2021-08-27 06:56] LABS: CREATININE SERUM 0.82 MG/DL (0.60-1.30)
[2021-08-27 08:00] VITALS: BP 114/81
--- NOTE | 2021-08-27 08:54 | Cardiology Progress Note ---
Subjective Date Seen by Provider: Aug 27, 2021 Time Seen by Provider: 08:53 Subjective/Events-last exam Patient is laying down in bed, feeling better. No new complaint. Maintaining sinus rhythm Review of Systems General: No Chills, No Night Sweats, No Fatigue, No Malaise, No Appetite, No Other HEENT: No Head Aches, No Visual Changes, No Eye Pain, No Ear Pain, No D ysphasia, No Sinus Congestion, No Post Nasal Drip, No Sore Throat, No Other Pulmonary: No Dyspnea, No Cough, No Pleuritic Chest Pain, No Other Cardiovascular: No: Chest Pain, Palpitations, Orthopnea, Paroxysmal Noc. Dyspnea, Edema, Lt Headedness, Other Objective-Cardiology Exam Last Set of Vital Signs Vital Signs 08/26/21 08/27/21 10:53 08:00 Temp 36.4 Pulse 60 Resp 14 B/P (MAP) 114/81 (92) Pulse Ox 96 O2 Delivery Room Air O2 Flow Rate 8.00 I&O Intake and Output 08/27/21 00:00 Intake Total 1050 ml Balance 1050 ml Intake Oral 1050 ml # Voids 5 General: Alert, Oriented X3, Cooperative HEENT: Atraumatic, PERRLA Neck: Supple, No JVD, No Thyromegaly Lungs: Clear to Auscultation, Normal Air Movement Heart: Regular Rate, Normal S1, Normal S2, No Murmurs Abdomen: Normal Bowel Sounds, Soft, No Tenderness, No Hepatosplenomegaly, No Masses Extremities: No Clubbing, No Cyanosis, No Edema, Normal Pulses, No Tenderness/Swelling Skin: No Rashes, No Breakdown, No Significant Lesion Neuro: Normal Gait, Normal Speech, Strength at 5/5 X4 Ext, Normal Tone, Sensation Intact Psych/Mental Status: Mental Status NL, Mood NL Results Lab Laboratory Tests 08/27/21 06:20 A/P-Cardiology Admission Diagnosis Paroxysmal atrial flutter Chest pain Palpitation Paroxysmal atrial fibrillation Assessment/Plan Paroxysmal atrial flutter, underwent LENORE with electrical cardioversion on August 26, 2021, currently in sinus rhythm. I will start with Multaq and evaluate tolerance and response We discussed the possibility of another ablation for the atrial flutter to be scheduled at [facility] as an outpatient I will arrange for follow-up as an outpatient in 1 to 2 weeks in my office History of sinus node dysfunction, permanent pacemaker, Medtronic. Had it implanted in [place]. Chest pain nonspecific etiology probably secondary to tachycardia. Patient had a cardiac catheterization done in November 2020 showing normal coronaries with normal LV function History of hiatal hernia and hiatal hernia repair surgery done at in 2020 GERD, epigastric pain, loss of appetite, had CT abdomen done in the ER on 03/17/21 showing abnormal wall thickening itn ehe region of the GE junction and prox stomach with multiple prominent enlarged superior mesenteric and paraesophageal lymph nodes most concerning for GE junction or prox gastric malignancy. Had EGD done with Dr. Valles in 2020 Generalized fatigue and loss of energy. Hypothyroidism, followed and managed by primary care physician COPD, maintained on bronchodilator. Followed and managed by primary care physician History of Covid 19 infection in June 2020, ERIKA DE LA ROSA MD Aug 27, 2021 08:54
[2021-08-27] MEDS ORDERED: POTA10TA PO (08:57)
[2021-08-27] MEDS ORDERED: DRON400T6 PO (08:57)
[2021-08-27] MEDS ORDERED: RIVA20TA2 PO (08:57)
[2021-08-27] MEDS ORDERED: APIXABAN 5 MG (ELIQUIS) TABLET PO SCH (09:00)
[2021-08-27] MEDS ORDERED: DRONEDARONE 400 MG TABLET PO SCH (09:00)
[2021-08-27] MEDS ORDERED: toPIRamate 100 MG (TOPAMAX) TAB PO SCH (09:00)
[2021-08-27] MEDS: ACETAMINOPHEN 325 MG TABLET PO PRN (09:15)
[2021-08-27] MEDS: PANTOPRAZOLE 40 MG (PROTONIX) TAB PO SCH (09:15)
[2021-08-27] MEDS: DRONEDARONE 400 MG TABLET PO SCH (09:15)
[2021-08-27] MEDS: FAMOTIDINE 20 MG (PEPCID) TABLET PO SCH (09:15)
[2021-08-27] MEDS: dilTIAZem120 MG (CARDIZEM CD) CAP PO SCH (09:15)
[2021-08-27] MEDS: METOCLOPRAMIDE 10 MG (REGLAN) TAB PO SCH (09:15)
[2021-08-27] MEDS: SENNA W/DOCUSATE (SENOKOT S) TABLET PO SCH (09:15)
[2021-08-27] MEDS: POTASSIUM CL 10MEQ/50ML IVPB 50 ML IV SCH (09:16)
[2021-08-27] MEDS: KCL 20 MEQ TAB (K-DUR) PO SCH (09:17)
[2021-08-27] MEDS: MAGNESIUM 1 GM/100 ML IVPB 100 ML IV SCH (09:17)
[2021-08-27 12:29] VITALS: BP 114/81
== END 2021-08-27 12:32 | disposition home or self-care (01) | DRG 310 ==
LOC: EDUNIT# 09:37 → ER 09:38 → CSD 11:05
PROVIDERS: ADMIT Internal Medicine Cardiovascular Disease; ATTEND Internal Medicine
PROC: 5A2204Z Restoration of Cardiac Rhythm, Single (ICD-10-PCS; principal; 2021-08-26)
DX: I48.0 Paroxysmal atrial fibrillation (principal); Z91.14 Patient's other noncompliance with medication regimen; I48.3 Typical atrial flutter; G43.909 Migraine, unspecified, not intractable, without status migrainosus; E03.9 Hypothyroidism, unspecified; G89.29 Other chronic pain; M54.9 Dorsalgia, unspecified; F32.A Depression, unspecified; Z95.0 Presence of cardiac pacemaker; E78.5 Hyperlipidemia, unspecified; E66.9 Obesity, unspecified; Z86.16 Personal history of COVID-19; Z68.33 Body mass index [BMI] 33.0-33.9, adult; K21.00 Gastro-esophageal reflux disease with esophagitis, without bleeding; K44.9 Diaphragmatic hernia without obstruction or gangrene; I50.9 Heart failure, unspecified; Z91.040 Latex allergy status; I11.0 Hypertensive heart disease with heart failure; R53.83 Other fatigue
CPT/HCPCS: 36415; 71045; 71275; 74175; 80048; 80053; 80061; 83735; 83874; 83880; 84145; 84439; 84443; 84484; 85025; 85379; 85610; 85730; 86141; 92960; 93005; 93041; 93312

== ENCOUNTER 2021-08-27 19:48 | Outpatient (CLI) | payer BC ==
[~2021-08-27 19:48] MED LIST changes: +ACET-2267 PO; +ALBU1.25 NEB; +DOCU100C37 PO; +DRON400T6 PO; +FISH1CAP15 PO; +FLUT100B INH; +LEVO112T55 PO; +MTC10T PO; +POTA10TA PO; +RIVA20TA2 PO; +RT-ALBUINH INH; +TOPI50TA13 PO; +VIT1TAB.12 PO; +VITA100T8 PO; +WHEA1POW6 PO
== END 2021-08-28 06:45 | disposition home or self-care (01) ==
LOC: SLEEP 19:48
PROVIDERS: ATTEND Otolaryngology Otolaryngology/Facial Plastic Surgery
DX: G47.33 Obstructive sleep apnea (adult) (pediatric) (principal); F51.8 Other sleep disorders not due to a substance or known physiological condition; Z86.16 Personal history of COVID-19
CPT/HCPCS: 95810

== ENCOUNTER 2021-09-14 21:08 | Emergency (ER) | payer BC ==
[~2021-09-14] VITALS: Ht 162 cm; Wt 88.9 kg
--- NOTE | 2021-09-14 21:54 | ED Abdominal Pain ---
General Chief Complaint: Abdominal/GI Problems Stated Complaint: ABD PAIN, RECTAL BLEEDING, LOW BP, TIRED, CHILLS, Nursing Triage Note: Pt arrives per POV w/ c/o abdominal pain, back pain, chills and rectal bleeding. Pt attached to NIBP and SpO2 monitors. Source of Information: Patient Exam Limitations: No Limitations (DIANA COFFMAN STUDENT) History of Present Illness Date Seen by Provider: Sep 14, 2021 Time Seen by Provider: 09:45 Initial Comments Patient is a 56 year old female who presents to the ED with complaints of rectal bleeding, abdominal pain, chills, fatigue, and low BP at home. PMH significant for afb/aflutter on xarelto, HF, hemorrhoids, fatty liver, HTN, HLP, pacemaker, COPD, colon polyps, and CVA. She reports that she went to the bathroom one hour ago at home voided and did not defecate, but wiped back to front and noticed blood on the toilet paper and a few larger sized clots. She reports increasing fatigue, lightheadedness, abdominal pain, and nausea today. States the abdominal pain started several weeks ago and is slightly worse than it has been. Reports mid epigastric pain radiating across to the right side of her abdomen. Unable to rate the pain. Reports its intermittent and crampy. She reports good appetite. No recent weight loss. States she has SOB and chest pain which are chronic and not changing from her baseline. States she was hospitalized several weeks ago and was being treated for afib. Not covid vaccinated but reports having covid x 2. Is flu vaccinated this season. No recent sick contacts. Timing/Duration: 1-3 Hours Severity/Quality: Mild Location: Epigastric Radiation: RUQ Activities at Onset: None Associated Symptoms: Fever/Chills, Fatigue, Nausea/Vomiting, Weakness (DIANA COFFMAN STUDENT) Allergies and Home Medications Allergies Coded Allergies: Latex, Natural Rubber (Unverified Allergy, Intermediate, Shortness of Breath, 09/27/20) Patient Home Medication List Home Medication List Reviewed: Yes (ANDREE CHACKO MD) Acetaminophen (Tylenol Extra Strength) 500 Mg Tablet, 1,000 MG PO Q8H PRN for PAIN-MILD (1-4), (Reported) Entered as Reported by: LEOBARDO CARLIN on 08/26/21 104 Albuterol Sulfate (Albuterol Sulfate) 1.25 Mg/3 Ml Vial.neb, 3 ML NEB Q8H PRN for SHORTNESS OF BREATH, (Reported) Entered as Reported by: LEOBARDO CARLIN on 08/26/21 104 Albuterol Sulfate (Proventil Hfa) 6.7 Gm Hfa.aer.ad, 2 PUFF INH Q6H PRN for SHORTNESS OF BREATH, (Reported) Entered as Reported by: LEOBARDO CARLIN on 08/26/21 104 Clonidine HCl (Clonidine HCl) 0.1 Mg Tablet, 0.1 MG PO 1200 PRN for BLOOD PRESSURE, (Reported) Entered as Reported by: LEOBARDO CARLIN on 08/26/21 104 Diazepam (Diazepam) 5 Mg Tablet, 5 MG PO BID, (Reported) Entered as Reported by: LEOBARDO CARLIN on 08/26/21 104 Docusate Sodium (Docusate Sodium) 100 Mg Capsule, 100 MG PO DAILY, (Reported) Entered as Reported by: LEOBARDO CARLIN on 08/26/211042 Dronedarone HCl (Multaq) 400 Mg Tablet, 400 MG PO BID Prescribed by: ERIKA DE LA ROSA on 08/27/21 0857 Fish Oil/Dha/Epa (Fish Oil 1,200 mg Fish Oil) 1 Each Capsule, 1 EACH PO DAILY, (Reported) Entered as Reported by: LEOBARDO CARLIN on 08/26/21 104 Fluticasone Furoate (Arnuity Ellipta) 100 Mcg Blst.w.dev, 1 PUFF INH DAILY PRN for SHORTNESS OF BREATH, (Reported) Entered as Reported by: LEOBARDO CARLIN on 08/26/21 104 Furosemide (Furosemide) 20 Mg Tablet, 20 MG PO DAILY, (Reported) Entered as Reported by: LEOBARDO CARLIN on 08/26/21 104 Levothyroxine Sodium (Levothyroxine Sodium) 112 Mcg Tablet, 112 MCG PO DAILY, (Reported) Entered as Reported by: LEOBARDO CARLIN on 08/26/21 104 Metoclopramide HCl (Metoclopramide HCl) 10 Mg Tablet, 10 MG PO QID, (Reported) Entered as Reported by: LEOBARDO CARLIN on 08/26/21 104 Ondansetron (Ondansetron Odt) 4 Mg Tab.rapdis, 4 MG PO Q8H PRN for nausea Prescribed by: ANDREE CHACKO on 09/14/21 950 Potassium Chloride (K-Tab ER) 10 Meq Tablet.er, 10 MEQ PO DAILY Prescribed by: ERIKA DE LA ROSA on 08/27/21 0857 Rivaroxaban (Xarelto Tablet) 20 Mg Tablet, 20 MG PO DAILY@1700 Prescribed by: ERIKA DE LA ROSA on 08/27/21 0857 Topiramate (Topiramate) 50 Mg Tablet, 100 MG PO DAILY, (Reported) Entered as Reported by: LEOBARDO CARLIN on 08/26/21 1043 Vit C/Vit D3/E/Zinc/Elderberry (Airborne Elderberry Gummy) 1 Each Tab.chew, 1 EACH PO DAILY, (Reported) Entered as Reported by: LEOBARDO CARLIN on 08/26/21 1043 Vitamin E Mixed (Vitamin E) 100 Unit Tablet, 100 UNIT PO DAILY, (Reported) Entered as Reported by: LEOBARDO CARLIN on 08/26/21 1043 Wheat Dextrin (Benefiber) 1 Each Powd.pack, 1 EACH PO DAILY, (Reported) Entered as Reported by: LEOBARDO CARLIN on 08/26/21 1043 Review of Systems Review of Systems Constitutional: chills, weakness EENTM: No Symptoms Reported; No Blurred Vision, No Double Vision Respiratory: Denies Cough; Shortness of Air (chronic and unchanging) Cardiovascular: Chest Pain (chronic and unchanging per patient report); Denies Edema; Lightheadedness Gastrointestinal: Abdominal Pain, Nausea, Rectal Bleeding Genitourinary: Denies Burning, Denies Discharge Musculoskeletal: No back pain, No joint pain Skin: No change in color, No change in hair/nails Psychiatric/Neurological: Denies Anxiety, Denies Depressed Endocrine: No Symptoms Reported; Denies Intolerance to Cold, Denies Intolerance to Heat, Denies Unexplaned Weight Loss Hematologic/Lymphatic: No Symptoms Reported, See HPI (DIANA COFFMAN MED STUDENT) All Other Systems Reviewed Negative Unless Noted: Yes (DIANA COFFMAN MED STUDENT) Past Nzxruat-Uzyeva-Gxqigr Hx Patient Social History Tobacco Use?: No Smoking Status: Never a Smoker Smokeless Tobacco Frequency: Never a User Use of E-Cig and/or Vaping dev: No Use of E-Cig and/or Vaping Shen: Never a User Substance use?: No Alcohol Use?: No (DIANA COFFMAN Redapt STUDENT) Immunizations Up To Date Tetanus Booster (TDap): Less than 5yrs PED Vaccines UTD: Yes First/Initial COVID19 Vaccinat: unvaccinated Second COVID19 Vaccination Arley: NONE Third COVID19 Vaccination Date: NONE (DIANA COFFMAN Red[employer] STUDENT) Seasonal Allergies Seasonal Allergies: Yes (DIANA COFFMAN [employer] STUDENT) Past Medical History Surgery/Hospitalization HX: pacemaker, CHF, A-fib, Cardiac cath, 3 cardiac ablasions, hysterectomy, appendectomy, tonsillectomy, titi, hiatal hernia Surgeries: Yes (D&C'S, LAPAROSCOPY, UVULA REMOVED, hiatal hernia x 2 repair, ) Appendectomy, Bladder Surgery, Cardiac, Gallbladder, Hysterectomy, Pacemaker, Tonsillectomy Respiratory: Yes COPD Cardiac: Yes (ABLATION, CHF) Atrial Fibrillation, High Cholesterol, Hypertension, Valvular Heart Disease Neurological: Yes Headaches /Migraines 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 History: Hysterectomy, 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, Menopausal Genitourinary: No (BLADDER SLING) Gastrointestinal: Yes Liver Disease/Jaundice (fatty liver disease), Reina's Esophagus, Polyps Musculoskeletal: Yes Chronic Back Pain Endocrine: Yes Hypothyroidsim HEENT: No Loss of Vision: Denies Hearing Impairment: Denies Cancer: No Psychosocial: Yes Depression Integumentary: Yes Eczema, Psoriasis Blood Disorders: No (DIANA COFFMAN [employer] STUDENT) Family Medical History Colon cancer Noncontributory (DIANA COFFMAN [employer] STUDENT) Physical Exam Vital Signs Vital Signs - First Documented 09/14/21 21:34 Temp 36.7 Pulse 75 Resp 20 B/P (MAP) 144/95 (111) Pulse Ox 98 O2 Delivery Room Air (ANDREE CHACKO MD) Vital Signs Capillary Refill : Less Than 3 Seconds (DIANA COFFMAN [employer] STUDENT) Height/Weight/BMI Height: '" Weight: lbs. oz. kg; 33.00 BMI Method: General Appearance: WD/WN, no apparent distress HEENT: PERRL/EOMI, pharynx normal Neck: non-tender, full range of motion Respiratory: chest non-tender, lungs clear, normal breath sounds Cardiovascular: normal peripheral pulses, regular rate, rhythm Peripheral Pulses: 2+ Radial Pulses (R), 2+ Radial Pulses (L) Gastrointestinal: normal bowel sounds, soft; No distended, No guarding, No rebound; tenderness (just right of the umbilicus and tender in RUQ) Extremities: normal range of motion, non-tender, no pedal edema, no calf tenderness Back: normal inspection, no vertebral tenderness Neurologic/Psychiatric: no motor/sensory deficits, alert, normal mood/affect, oriented x 3 Skin: normal color, warm/dry Lymphatic: no adenopathy (Head and Neck) (DIANA COFFMAN MED STUDENT) Progress/Results/Core Measures Results/Orders Lab Results Laboratory Tests Test 09/14/21 21:50 Range/Units White Blood Count 6.3 4.3-11.0 10^3/uL Red Blood Count 4.65 3.80-5.11 10^6/uL Hemoglobin 13.4 11.5-16.0 g/dL Hematocrit 39 35-52 % Mean Corpuscular Volume 84 80-99 fL Mean Corpuscular Hemoglobin 29 25-34 pg Mean Corpuscular Hemoglobin Concent 34 32-36 g/dL Red Cell Distribution Width 12.8 10.0-14.5 % Platelet Count 250 130-400 10^3/uL Mean Platelet Volume 10.9 9.0-12.2 fL Immature Granulocyte % (Auto) 0 % Neutrophils (%) (Auto) 42 42-75 % Lymphocytes (%) (Auto) 47 H 12-44 % Monocytes (%) (Auto) 8 0-12 % Eosinophils (%) (Auto) 2 0-10 % Basophils (%) (Auto) 1 0-10 % Neutrophils # (Auto) 2.6 1.8-7.8 10^3/uL Lymphocytes # (Auto) 3.0 1.0-4.0 10^3/uL Monocytes # (Auto) 0.5 0.0-1.0 10^3/uL Eosinophils # (Auto) 0.2 0.0-0.3 10^3/uL Basophils # (Auto) 0.0 0.0-0.1 10^3/uL Immature Granulocyte # (Auto) 0.0 0.0-0.1 10^3/uL Sodium Level 139 135-145 MMOL/L Potassium Level 3.5 L 3.6-5.0 MMOL/L Chloride Level 107 98-107 MMOL/L Carbon Dioxide Level 21 21-32 MMOL/L Anion Gap 11 5-14 MMOL/L Blood Urea Nitrogen 10 7-18 MG/DL Creatinine 0.83 0.60-1.30 MG/DL Estimat Glomerular Filtration Rate 84 BUN/Creatinine Ratio 12 Glucose Level 108 H 70-105 MG/DL Calcium Level 9.5 8.5-10.1 MG/DL Corrected Calcium 9.3 8.5-10.1 MG/DL Total Bilirubin 0.4 0.1-1.0 MG/DL Aspartate Amino Transf (AST/SGOT) 25 5-34 U/L Alanine Aminotransferase (ALT/SGPT) 35 0-55 U/L Alkaline Phosphatase 109 40-136 U/L Total Protein 7.3 6.4-8.2 GM/DL Albumin 4.2 3.2-4.5 GM/DL (ANDREE CHACKO MD) My Orders Orders - ANDREE CHACKO MD Ed Iv/Invasive Line Start (09/14/21 22:28) Cbc With Automated Diff (09/14/21 22:28) Comprehensive Metabolic Panel (09/14/21 22:28) Fecal Occult Bedside (09/14/21 22:28) Ondansetron Injection (Zofran Injectio (09/14/21 22:30) Orthostatic Vital Signs (Adult (09/14/21 23:07) Tramadol Tablet (Ultram Tablet) (09/14/21 23:30) Tramadol Tablet (Ultram Tablet) (09/14/21 23:20) Rx-Ondansetron Po (Rx-Zofran Po) (09/14/21 23:46) (ANDREE CHACKO MD) Medications Given in ED (ANDREE CHACKO MD) Vital Signs/I&O 09/14/21 09/14/21 21:34 23:34 Temp 36.7 Pulse 75 75 84 80 Resp 20 B/P (MAP) 144/95 (111) 132/75 (94) 137/84 (101) 125/80 (95) Pulse Ox 98 O2 Delivery Room Air (ANDREE CHACKO MD) Blood Pressure Mean: 111 Progress Progress Note #1: Time: 22:32 Progress Note 56 yo female with complaint of BRBPR onset about 2029 this evening when she went to urinate. Noted lots of blood in the toilet. Has had mild abdominal discomfort for 2-3 weeks, has talked to her PCP about it. Previous colonoscopy about 3y ago - Dr Connors in [place]. Had "pre cancerous polyps". Chronically anticoagulated due to Afib/Aflutter. A Peg patient. No fevers. Positive chills and light headed when she stands up and also lays flat. Nausea. No constipation. takes stool softners daily. Feels generally weak. No chest pain or palpitations this evening. Physical exam remarkable for mild tenderness to palpation Right abdomen. No john toneal findings. Blood (obvious) on the skin of the rectum. No inflamed external hemorrhoids. Palpable swollen internal hemorrhoid at the 12 o'clock position. Brown stool in the vault. No other masses appreciated. Patient is not overly pale. Heart is regular not tachy. Lungs are clear. Will check labs and likely admit with Surg consult for scope tomorrow. Progress Note #2: Time: 23:42 Progress Note Orthostatics reviewed. Normal. LAbs all look great. Nausea improved but not gone. Tramadol given. Patient stable. Hgb 13. Has seen Dr Valles in the past and requests to see him again. Advised her to call his office first thing Thursday. Return precautions given. (ANDREE CHACKO MD) Departure Impression Primary Impression: Bright red blood per rectum Additional Impression: Chronic anticoagulation Disposition: 01 HOME, SELF-CARE Condition: Stable Departure-Patient Inst. Decision time for Depature: 23:43 (ANDREE CHACKO MD) Referrals: BALWINDER DEAN MD (PCP/Family) Primary Care Physician Patient Instructions: Bloody Stools, Adult ED Add. Discharge Instructions: Continue your daily medications as prescribed. Continue your stool softeners. Use the Zofran 4mg every 8 hours as needed for nausea. If you have worse pain, bleeding or weakness, especially with a passing out spell, you need to come back to the Emergency Department for re-evaluation. Please call Dr Valles's office first thing Thursday for a follow up appointment this week. You need a repeat colonoscopy. Scripts Ondansetron (Ondansetron Odt) 4 Mg Tab.rapdis 4 MG PO Q8H PRN for nausea, #10 TAB Prov: ANDREE CHACKO MD 09/14/21 Verification and Attestation of Medical Student E/M Service A medical student performed and documented this service in my presence. I reviewed and verified all information documented by the medical student and made modifications to such information, when appropriate. I personally performed the physical exam and medical decision making. Andree Chacko, Sep 14, 2021,23:48 (ANDREE CHACKO MD) Copy Copies To 1: MARIYA VALLES MD, [employer] MED STUDENT Sep 14, 2021 21:54 ANDREE CHACKO MD Sep 14, 2021 22:27
[2021-09-14] MEDS ORDERED: ONDANSETRON 4 MG/2 ML (SDV) Z0FRAN IVP ONE (22:30)
[2021-09-14 22:33] LABS: BASOPHILS % (AUTO) 1 % (0-10); EOSINOPHILS # (AUTO) 0.2 10^3/uL (0.0-0.3); EOSINOPHILS % (AUTO) 2 % (0-10); HEMATOCRIT 39 % (35-52); HEMOGLOBIN 13.4 g/dL (11.5-16.0); LYMPHOCYTES % (AUTO) 47 % (12-44); MEAN CORPUSCULAR HEMOGLOBIN 29 pg (25-34); MEAN CORPUSCULAR HGB CONC 34 g/dL (32-36); MEAN CORPUSCULAR VOLUME 84 fL (80-99); MEAN PLATELET VOLUME 10.9 fL (9.0-12.2); MONOCYTES # (AUTO) 0.5 10^3/uL (0.0-1.0); MONOCYTES % (AUTO) 8 % (0-12); NEUTROPHILS # (AUTO) 2.6 10^3/uL (1.8-7.8); NEUTROPHILS % (AUTO) 42 % (42-75); PLATELET COUNT 250 10^3/uL (130-400); WHITE BLOOD COUNT 6.3 10^3/uL (4.3-11.0)
[2021-09-14 22:44] LABS: ALBUMIN 4.2 GM/DL (3.2-4.5)
[2021-09-14 22:45] LABS: POTASSIUM 3.5 MMOL/L (3.6-5.0)
[2021-09-14 22:46] LABS: CALCIUM 9.5 MG/DL (8.5-10.1)
[2021-09-14 22:47] LABS: TOTAL PROTEIN 7.3 GM/DL (6.4-8.2)
[2021-09-14 22:49] LABS: BILIRUBIN,TOTAL 0.4 MG/DL (0.1-1.0)
[2021-09-14 22:51] LABS: CREATININE SERUM 0.83 MG/DL (0.60-1.30)
[2021-09-14 23:34] VITALS: BP_SYST 125; BP_SYST 132; BP_SYST 137; BP_DIAS 75; BP_DIAS 80; BP_DIAS 84
[2021-09-14] MEDS ORDERED: RX-ONDANSETRON 4 MG ODT (ZOFRAN) PPK #4 PO STA (23:46)
[2021-09-14] MEDS ORDERED: ONDA4TAB11 PO (23:47)
== END 2021-09-14 23:59 | disposition home or self-care (01) ==
LOC: EDUNIT# 21:08 → ER 21:15
DX: K62.5 Hemorrhage of anus and rectum (principal); Z79.01 Long term (current) use of anticoagulants
CPT/HCPCS: 36415; 80053; 82274; 85025

== ENCOUNTER 2021-09-27 07:50 | Emergency (ER) | payer BC ==
[~2021-09-27] VITALS: Ht 162.6 cm; Wt 91.6 kg
[2021-09-27 08:15] LABS: BASOPHILS % (AUTO) 1 % (0-10); EOSINOPHILS # (AUTO) 0.2 10^3/uL (0.0-0.3); EOSINOPHILS % (AUTO) 2 % (0-10); HEMATOCRIT 40 % (35-52); HEMOGLOBIN 13.6 g/dL (11.5-16.0); LYMPHOCYTES # (AUTO) 2.5 10^3/uL (1.0-4.0); LYMPHOCYTES % (AUTO) 40 % (12-44); MEAN CORPUSCULAR HEMOGLOBIN 29 pg (25-34); MEAN CORPUSCULAR HGB CONC 34 g/dL (32-36); MEAN CORPUSCULAR VOLUME 85 fL (80-99); MEAN PLATELET VOLUME 10.6 fL (9.0-12.2); MONOCYTES # (AUTO) 0.5 10^3/uL (0.0-1.0); MONOCYTES % (AUTO) 8 % (0-12); NEUTROPHILS # (AUTO) 3.1 10^3/uL (1.8-7.8); NEUTROPHILS % (AUTO) 49 % (42-75); PLATELET COUNT 193 10^3/uL (130-400); WHITE BLOOD COUNT 6.3 10^3/uL (4.3-11.0)
[2021-09-27 08:28] LABS: BILIRUBIN,URINE NEGATIVE (NEGATIVE); CLARITY,URINE SL CLOUDY; COLOR,URINE YELLOW; GLUCOSE, URINE (UA) NEGATIVE (NEGATIVE); KETONES,URINE NEGATIVE (NEGATIVE); LEUKOCYTE ESTERASE ,URINE NEGATIVE (NEGATIVE); NITRITE,URINE NEGATIVE (NEGATIVE); PROTEIN,URINE NEGATIVE (NEGATIVE)
[2021-09-27 08:31] LABS: ALBUMIN 4.1 GM/DL (3.2-4.5); POTASSIUM 3.8 MMOL/L (3.6-5.0)
[2021-09-27 08:32] LABS: CALCIUM 9.3 MG/DL (8.5-10.1)
[2021-09-27 08:33] LABS: TOTAL PROTEIN 6.9 GM/DL (6.4-8.2)
--- NOTE | 2021-09-27 08:34 | ED General ---
General Chief Complaint: Abdominal/GI Problems Stated Complaint: ABD PAIN Nursing Triage Note: PT AMBULATE TO ROOM 08 WITH C/O UPPER ABD PAIN, LEFT RIB PAIN, LEFT SHOULDER PAIN, AND NAUSEA. PT REPORTS HX OF PACEMAKER, CARDIAC ABLASIONS, AND AFIB. PT REPORTS SHE HAS ANOTHER ABLASION SCHEDULED FOR DECEMBER. Source of Information: Patient Exam Limitations: No Limitations History of Present Illness Date Seen by Provider: Sep 27, 2021 Time Seen by Provider: 07:59 Initial Comments This 56-year-old woman presents to the emergency room with complaints of pain across the upper abdomen and radiating into the chest and left shoulder. This has been going on since several days prior to September 12 when she saw her primary care provider, Dr. Deng. She also reports gaining 7 pounds in the past week. She does not understand why she is gaining weight because she is on Lasix. She denies constipation or diarrhea. Pain started in the right upper quadrant and has spread since then. She reports history of fatty liver disease and elevated transaminases. She is surgically absent her gallbladder, appendix, and uterus. She has history of hiatal hernia. She also has history of atrial fibrillation with multiple ablations and another ablation scheduled soon. She also has a pacemaker. Allergies and Home Medications Allergies Coded Allergies: Latex, Natural Rubber (Unverified Allergy, Intermediate, Astrid alves, 09/27/20) Patient Home Medication List Home Medication List Reviewed: Yes Acetaminophen (Tylenol Extra Strength) 500 Mg Tablet, 1,000 MG PO Q8H PRN for PAIN-MILD (1-4), (Reported) Entered as Reported by: LEOBARDO CARLIN on 08/26/21 1045 Albuterol Sulfate (Albuterol Sulfate) 1.25 Mg/3 Ml Vial.neb, 3 ML NEB Q8H PRN for SHORTNESS OF BREATH, (Reported) Entered as Reported by: LEOBARDO CARLIN on 08/26/21 1043 Albuterol Sulfate (Proventil Hfa) 6.7 Gm Hfa.aer.ad, 2 PUFF INH Q6H PRN for SHORTNESS OF BREATH, (Reported) Entered as Reported by: LEOBARDO CARLIN on 08/26/21 1043 Clonidine HCl (Clonidine HCl) 0.1 Mg Tablet, 0.1 MG PO 1200 PRN for BLOOD PRESSURE, (Reported) Entered as Reported by: LEOBARDO CARLIN on 08/26/21 1043 Diazepam (Diazepam) 5 Mg Tablet, 5 MG PO BID, (Reported) Entered as Reported by: LEOBARDO CARLIN on 08/26/21 104 Docusate Sodium (Docusate Sodium) 100 Mg Capsule, 100 MG PO DAILY, (Reported) Entered as Reported by: LEOBARDO CARLIN on 08/26/21 104 Dronedarone HCl (Multaq) 400 Mg Tablet, 400 MG PO BID Prescribed by: ERIKA DE LA ROSA on 08/27/21 0857 Fish Oil/Dha/Epa (Fish Oil 1,200 mg Fish Oil) 1 Each Capsule, 1 EACH PO DAILY, (Reported) Entered as Reported by: LEOBARDO CARLIN on 08/26/21 1043 Fluticasone Furoate (Arnuity Ellipta) 100 Mcg Blst.w.dev, 1 PUFF INH DAILY PRN for SHORTNESS OF BREATH, (Reported) Entered as Reported by: LEOBARDO CARLIN on 08/26/21 104 Furosemide (Furosemide) 20 Mg Tablet, 20 MG PO DAILY, (Reported) Entered as Reported by: LEOBARDO CARLIN on 08/26/21 104 Levothyroxine Sodium (Levothyroxine Sodium) 112 Mcg Tablet, 112 MCG PO DAILY, (Reported) Entered as Reported by: LEOBARDO CARLIN on 08/26/21 104 Metoclopramide HCl (Metoclopramide HCl) 10 Mg Tablet, 10 MG PO QID, (Reported) Entered as Reported by: LEOBARDO CARLIN on 08/26/21 104 Ondansetron (Ondansetron Odt) 4 Mg Tab.rapdis, 4 MG PO Q8H PRN for nausea Prescribed by: ANDREE BUTT on 09/14/21 2347 Ondansetron (Ondansetron Odt) 4 Mg Tab.rapdis, 4 MG PO Q4H PRN for NAUSEA/VOMITING Prescribed by: KINGSLEY DAY on 09/27/21 1205 Potassium Chloride (K-Tab ER) 10 Meq Tablet.er, 10 MEQ PO DAILY Prescribed by: ERIKA DE LA ROSA on 08/27/21 0857 Rivaroxaban (Xarelto Tablet) 20 Mg Tablet, 20 MG PO DAILY@1700 Prescribed by: ERIKA DE LA ROSA on 08/27/21 0857 Topiramate (Topiramate) 50 Mg Tablet, 100 MG PO DAILY, (Reported) Entered as Reported by: LEOBARDO CARLIN on 08/26/21 1043 Tramadol HCl (Ultram) 50 Mg Tablet, 50 MG PO Q6H PRN for PAIN-MODERATE (5-7) Prescribed by: KINGSLEY DAY on 09/27/21 1205 Vit C/Vit D3/E/Zinc/Elderberry (Airborne Elderberry Gummy) 1 Each Tab.chew, 1 EACH PO DAILY, (Reported) Entered as Reported by: LEOBARDO CARLIN on 08/26/21 1043 Vitamin E Mixed (Vitamin E) 100 Unit Tablet, 100 UNIT PO DAILY, (Reported) Entered as Reported by: LEOBARDO CARLIN on 08/26/21 1043 Wheat Dextrin (Benefiber) 1 Each Powd.pack, 1 EACH PO DAILY, (Reported) Entered as Reported by: LEOBARDO CARLIN on 08/26/21 1043 Review of Systems Review of Systems Constitutional: no symptoms reported EENTM: no symptoms reported Respiratory: see HPI Cardiovascular: see HPI Gastrointestinal: see HPI Genitourinary: no symptoms reported Musculoskeletal: see HPI Skin: no symptoms reported Psychiatric/Neurological: No Symptoms Reported Hematologic/Lymphatic: No Symptoms Reported Immunological/Allergic: no symptoms reported Past Dhoafgi-Bpiaaq-Qwqdyo Hx Patient Social History Smoking Status: Never a Smoker Smokeless Tobacco Frequency: Never a User Use of E-Cig and/or Vaping dev: No Use of E-Cig and/or Vaping Shen: Never a User Substance use?: No Alcohol Use?: Yes Alcohol Frequency: Rarely Pt feels they are or have been: No Immunizations Up To Date Tetanus Booster (TDap): Less than 5yrs PED Vaccines UTD: Yes First/Initial COVID19 Vaccinat: unvaccinated Second COVID19 Vaccination Arley: NONE Third COVID19 Vaccination Date: NONE Seasonal Allergies Seasonal Allergies: Yes Past Medical History Surgery/Hospitalization HX: pacemaker, CHF, A-fib, Cardiac cath, 3 cardiac ablasions, hysterectomy, appendectomy, tonsillectomy, titi, hiatal hernia Surgeries: Yes (D&C'S, LAPAROSCOPY, UVULA REMOVED, hiatal H. 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 CASE History: Hysterectomy, 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, Menopausal Genitourinary: No (BLADDER SLING) Gastrointestinal: Yes Liver Disease/Jaundice (Fatty liver disease, elevated transaminases), Reina's Esophagus, Polyps, Hiatal Hernia Musculoskeletal: Yes Chronic Back Pain Endocrine: Yes Hypothyroidsim HEENT: No Loss of Vision: Denies Hearing Impairment: Denies Cancer: No Psychosocial: Yes Depression Integumentary: Yes Eczema, Psoriasis Blood Disorders: No Family Medical History Colon cancer Noncontributory Physical Exam Vital Signs Vital Signs - First Documented 09/27/21 09/27/21 07:56 12:18 Temp 36.4 Pulse 76 Resp 17 B/P (MAP) 140/98 (112) Pulse Ox 99 O2 Delivery Room Air Capillary Refill : Less Than 3 Seconds Height, Weight, BMI Height: '" Weight: lbs. oz. kg; 34.00 BMI Method: General Appearance: WD/WN, Mild Distress HEENT: PERRL/EOMI, Normal ENT Inspection Neck: Normal Inspection; No JVD Respiratory: Lungs Clear, Normal Breath Sounds, No Accessory Muscle Use Cardiovascular: Regular Rate, Rhythm, No Edema, No Murmur Gastrointestinal: Normal Bowel Sounds, Soft, Distended, Tenderness (Generalized throughout the upper abdomen with tenderness to percussion. Tympanic with percussion.) Extremity: Normal Inspection, No Pedal Edema Neurologic/Psychiatric: Alert, Oriented x3, No Motor/Sensory Deficits, Normal Mood/Affect Skin: Normal Color, Warm/Dry Progress/Results/Core Measures Suspected Sepsis SIRS Temperature: Pulse: 76 Respiratory Rate: 17 Laboratory Tests 09/27/21 08:10: White Blood Count 6.3 Blood Pressure 140 /98 Mean: 112 Laboratory Tests 09/27/21 08:10: Creatinine 0.76, INR Comment 1.5H, Platelet Count 193, Total Bilirubin 0.4 Results/Orders Lab Results Laboratory Tests Test 09/27/21 08:10 09/27/21 08:18 Range/Units White Blood Count 6.3 4.3-11.0 10^3/uL Red Blood Count 4.67 3.80-5.11 10^6/uL Hemoglobin 13.6 11.5-16.0 g/dL Hematocrit 40 35-52 % Mean Corpuscular Volume 85 80-99 fL Mean Corpuscular Hemoglobin 29 25-34 pg Mean Corpuscular Hemoglobin Concent 34 32-36 g/dL Red Cell Distribution Width 13.0 10.0-14.5 % Platelet Count 193 130-400 10^3/uL Mean Platelet Volume 10.6 9.0-12.2 fL Immature Granulocyte % (Auto) 0 % Neutrophils (%) (Auto) 49 42-75 % Lymphocytes (%) (Auto) 40 12-44 % Monocytes (%) (Auto) 8 0-12 % Eosinophils (%) (Auto) 2 0-10 % Basophils (%) (Auto) 1 0-10 % Neutrophils # (Auto) 3.1 1.8-7.8 10^3/uL Lymphocytes # (Auto) 2.5 1.0-4.0 10^3/uL Monocytes # (Auto) 0.5 0.0-1.0 10^3/uL Eosinophils # (Auto) 0.2 0.0-0.3 10^3/uL Basophils # (Auto) 0.0 0.0-0.1 10^3/uL Immature Granulocyte # (Auto) 0.0 0.0-0.1 10^3/uL Prothrombin Time 18.2 H 12.2-14.7 SEC INR Comment 1.5 H 0.8-1.4 Activated Partial Thromboplast Time 37 H 24-35 SEC Sodium Level 141 135-145 MMOL/L Potassium Level 3.8 3.6-5.0 MMOL/L Chloride Level 107 98-107 MMOL/L Carbon Dioxide Level 21 21-32 MMOL/L Anion Gap 13 5-14 MMOL/L Blood Urea Nitrogen 12 7-18 MG/DL Creatinine 0.76 0.60-1.30 MG/DL Estimat Glomerular Filtration Rate 93 BUN/Creatinine Ratio 16 Glucose Level 103 70-105 MG/DL Calcium Level 9.3 8.5-10.1 MG/DL Corrected Calcium 9.2 8.5-10.1 MG/DL Magnesium Level 1.9 1.6-2.4 MG/DL Total Bilirubin 0.4 0.1-1.0 MG/DL Aspartate Amino Transf (AST/SGOT) 21 5-34 U/L Alanine Aminotransferase (ALT/SGPT) 33 0-55 U/L Alkaline Phosphatase 126 40-136 U/L Myoglobin 29.2 10.0-92.0 NG/ML Troponin I < 0.028 <0.028 NG/ML Total Protein 6.9 6.4-8.2 GM/DL Albumin 4.1 3.2-4.5 GM/DL Lipase 23 8-78 U/L Urine Color YELLOW Urine Clarity SL CLOUDY Urine pH 8.0 5-9 Urine Specific [place] 1.015 L 1.016-1.022 Urine Protein NEGATIVE NEGATIVE Urine Glucose (UA) NEGATIVE NEGATIVE Urine Ketones NEGATIVE NEGATIVE Urine Nitrite NEGATIVE NEGATIVE Urine Bilirubin NEGATIVE NEGATIVE Urine Urobilinogen 0.2 < = 1.0 MG/DL Urine Leukocyte Esterase NEGATIVE NEGATIVE Urine RBC (Auto) NEGATIVE NEGATIVE Urine RBC RARE /HPF Urine WBC NONE /HPF Urine Squamous Epithelial Cells RARE /HPF Urine Crystals PRESENT H /LPF Urine Amorphous Sediment MOD GENIE PHOSPHATE H /LPF Urine Bacteria TRACE /HPF Urine Casts NONE /LPF Urine Mucus NEGATIVE /LPF Urine Culture Indicated NO C-Reactive Protein High Sensitivity 0.14 0.00-0.50 MG/DL B-Type Natriuretic Peptide 35.7 <100.0 PG/ML My Orders Orders - KINGSLEY CURTIS MD Ua Culture If Indicated (09/27/21 07:59) Cbc With Automated Diff (09/27/21 08:07) Magnesium (09/27/21 08:07) Chest 1 View, Ap/Pa Only (09/27/21 08:07) Ekg Tracing (09/27/21 08:07) Comprehensive Metabolic Panel (09/27/21 08:07) Myoglobin Serum (09/27/21 08:07) Protime With Inr (09/27/21 08:07) Partial Thromboplastin Time (09/27/21 08:07) O2 (09/27/21 08:07) Monitor-Rhythm Ecg Trace Only (09/27/21 08:07) Ed Iv/Invasive Line Start (09/27/21 08:07) Lipase (09/27/21 08:07) Troponin I [place] (09/27/21 08:07) Bnp [place] (09/27/21 08:18) Hs C Reactive Protein (09/27/21 08:18) Ct Abdomen/Pelvis W (09/27/21 08:48) Fentanyl Inj (Sublimaze Injection) (09/27/21 09:00) Ondansetron Injection (Zofran Injectio (09/27/21 09:00) Iohexol Injection (Omnipaque 350 Mg/Ml 1 (09/27/21 09:15) Received Contrast (Hold Metformin- Contr (09/27/21 09:15) Ns (Ivpb) (Sodium Chloride 0.9% Ivpb Bag (09/27/21 09:15) Sodium Chloride Flush (Catheter Flush Sy (09/27/21 09:15) Lidocaine 2% Viscous 15 Ml (Xylocaine Vi (09/27/21 10:45) Antacid Suspension (Mylanta Suspension (09/27/21 10:45) Medications Given in ED Vital Signs/I&O 09/27/21 09/27/21 07:56 12:18 Temp 36.4 Pulse 76 94 Resp 17 17 B/P (MAP) 140/98 (112) 148/84 Pulse Ox 99 O2 Delivery Room Air Room Air Capillary Refill : Less Than 3 Seconds Blood Pressure Mean: 112 Progress Note : Progress Note Patient was initially treated with Zofran and fentanyl. Lab work-up was unremarkable. Patient had persistent pain that was additionally treated with GI cocktail. She stated this had no significant impact either. Work-up was further pursued with CT of the abdomen and pelvis. CT likewise was unremarkable. Etiology of her pain is unknown. Patient cannot take NSAID medications due to her anticoagulation. She is advised not to take Tylenol products due to her liver disease. She was therefore prescribed tramadol and advised to continue her work-up in outpatient setting. See discharge instructions for further discussion. ECG Initial ECG Impression Date: Sep 27, 2021 Initial ECG Impression Time: 08:12 Initial ECG Rate: 60 Comment Paced rhythm with no ST elevation or depression. No abnormal intervals or axis deviation. Diagnostic Imaging Diagonstic Imaging: Xray Plain Films/CT/US/NM/MRI: chest Comments NAME: OLESYA NEVES [facility] REC#: [id number] PT STATUS: REG ER : 1965 PHYSICIAN: KINGSLEY CURTIS MD ADMIT DATE: 09/27/21/ER Signed Date of Exam:09/27/21 CHEST 1 VIEW, AP/PA ONLY INDICATION: Cardiac pacemaker, chest pain COMPARISON: 08/26/2021 FINDINGS: Single view of the chest demonstrates stable cardiac enlargement. The lungs are clear. There is no mass, nodule, or infiltrate. Pacemaker stable. Osseous structures are age-appropriate. No pneumothorax. IMPRESSION: Stable cardiac enlargement without pulmonary edema or acute infiltrate. Dictated by: Dictated on workstation # [id number] Dict: 09/27/21 0834 Trans: 09/27/21 0911 [facility] [id number] Interpreted by: YOAV MORENO Electronically signed by: YOAV MORENO 09/27/21 0911 Diagonstic Imaging: CT Plain Films/CT/US/NM/MRI: abdomen, pelvis Comments NAME: OLESYA NEVES [facility] REC#: [id number] PT STATUS: REG ER : 1965 PHYSICIAN: KINGSLEY CURTIS MD ADMIT DATE: 09/27/21/ER Signed Date of Exam:09/27/21 CT ABDOMEN/PELVIS W EXAMINATION: CT abdomen and pelvis with intravenous contrast. TECHNIQUE: Multiple contiguous axial images were obtained through the abdomen and pelvis after the uneventful administration of intravenous contrast. All CT scans use one or more of the following dose optimizing techniques: automated exposure control, MA and/or KvP adjustment based on patient size and exam type or iterative reconstruction. HISTORY: Upper abdominal pain, nausea COMPARISON: 08/25/2021 FINDINGS: Lung bases: Bibasilar dependent atelectasis. Solid organs: The liver is normal without focal lesion. The gallbladder is surgically absent. There is no biliary ductal dilation. Pancreas is normal. Spleen is normal. Adrenal glands are normal. There is a nonobstructing 0.6 cm right renal calculus. No hydronephrosis. Bowel: There is a small hiatal hernia. There is no bowel obstruction. The colon is unremarkable. No findings of acute appendicitis. Peritoneum: There is no intraperitoneal free fluid or free air. No suspicious lymphadenopathy. Vasculature: Normal without aneurysm. Musculoskeletal: Degenerative changes of the spine without suspicious osseous lesion or compression fracture. Pelvis: The uterus is surgically absent. No adnexal mass. The urinary bladder is normal. IMPRESSION: 1. No acute abnormality in the abdomen or pelvis. Dictated by: Dictated on workstation # [id number] Dict: 09/27/21 1003 Trans: 09/27/21 1107 [facility] [id number] Interpreted by: YECENIA BROWN DO Electronically signed by: YECENIA BROWN DO 09/27/21 1107 Departure Impression Primary Impression: Upper abdominal pain Additional Impressions: Nausea & vomiting Qualified Codes: R11.2 - Nausea with vomiting, unspecified Back pain Qualified Codes: M54.9 - Dorsalgia, unspecified Disposition: 01 HOME, SELF-CARE Condition: Improved Departure-Patient Inst. Decision time for Depature: 11:57 Referrals: BALWINDER DEAN MD (PCP/Family) Primary Care Physician Patient Instructions: Abdominal Pain, Adult ED Add. Discharge Instructions: Start with a noncarbonated clear liquid diet and drink plenty of clear liquids. Tomorrow gradually advance your diet with small quantities of bland food as tolerated. Use your medications as previously directed. Ultram (tramadol) and Zofran have been prescribed to you to help with symptom control until you can see Dr. Eubanks again. Follow-up in the clinic as soon as possible. Discuss further evaluation at your follow-up appointment which might include repeat endoscopy, testing for other possible causes such as H. pylori or celiac disease, or referral to specialist. Consider being tested for vitamin D deficiency as well which may be contributing to your generalized body aches. Call with questions or concerns. Return to the ER if you have worsening symptoms or other urgent problems. All discharge instructions reviewed with patient and/or family. Voiced understanding. Scripts Ondansetron (Ondansetron Odt) 4 Mg Tab.rapdis 4 MG PO Q4H PRN for NAUSEA/VOMITING, #10 TAB 1 Refill Prov: KINGSLEY CURTIS MD 09/27/21 Tramadol HCl (Ultram) 50 Mg Tablet 50 MG PO Q6H PRN for PAIN-MODERATE (5-7), #15 TAB Prov: KINGSLEY CURTIS MD 09/27/21 Copy Copies To 1: MARIYA HERNANDEZ MD, JOSHUA T MD Sep 27, 2021 08:34
[2021-09-27 08:35] LABS: BILIRUBIN,TOTAL 0.4 MG/DL (0.1-1.0)
[2021-09-27 08:36] LABS: INR 1.5 (0.8-1.4); PROTHROMBIN TIME PATIENT 18.2 SEC (12.2-14.7)
[2021-09-27 08:37] LABS: CREATININE SERUM 0.76 MG/DL (0.60-1.30)
--- NOTE | 2021-09-27 08:37 | Diagnostic Imaging Report ---
INDICATION: Cardiac pacemaker, chest pain COMPARISON: 08/26/2021 FINDINGS: Single view of the chest demonstrates stable cardiac enlargement. The lungs are clear. There is no mass, nodule, or infiltrate. Pacemaker stable. Osseous structures are age-appropriate. No pneumothorax. IMPRESSION: Stable cardiac enlargement without pulmonary edema or acute infiltrate. Dictated by: Dictated on workstation # [id number]
[2021-09-27 08:40] LABS: MAGNESIUM 1.9 MG/DL (1.6-2.4)
[2021-09-27 08:45] LABS: AMORPHOUS SEDIMENT,UR MOD AMOR PHOSPHATE /LPF; BACTERIA,URINE TRACE /HPF; RBC,URINE RARE /HPF; SQUAMOUS EPITHELIAL CELL,UR RARE /HPF
[2021-09-27] MEDS ORDERED: ONDANSETRON 4 MG/2 ML (SDV) Z0FRAN IVP ONE (09:00)
[2021-09-27] MEDS ORDERED: fentaNYL INJ 100 MCG/2 ML AMP IVP ONE (09:00)
[2021-09-27] MEDS ORDERED: CATHETER FLUSH 10 ML SYR IV PRN (09:15)
[2021-09-27] MEDS ORDERED: HOLD METFORMIN - RECEIVED CONTRAST 20 ML VIAL IV SCH (09:15)
[2021-09-27] MEDS ORDERED: IOHEXOL 350 MG/ML 100 ML (OMNIPAQUE 350) VIAL IV ONE (09:15)
[2021-09-27] MEDS ORDERED: NS 100 ML (IVPB) BAG IV ONE (09:15)
--- NOTE | 2021-09-27 10:06 | Diagnostic Imaging Report ---
EXAMINATION: CT abdomen and pelvis with intravenous contrast. TECHNIQUE: Multiple contiguous axial images were obtained through the abdomen and pelvis after the uneventful administration of intravenous contrast. All CT scans use one or more of the following dose optimizing techniques: automated exposure control, MA and/or KvP adjustment based on patient size and exam type or iterative reconstruction. HISTORY: Upper abdominal pain, nausea COMPARISON: 08/25/2021 FINDINGS: Lung bases: Bibasilar dependent atelectasis. Solid organs: The liver is normal without focal lesion. The gallbladder is surgically absent. There is no biliary ductal dilation. Pancreas is normal. Spleen is normal. Adrenal glands are normal. There is a nonobstructing 0.6 cm right renal calculus. No hydronephrosis. Bowel: There is a small hiatal hernia. There is no bowel obstruction. The colon is unremarkable. No findings of acute appendicitis. Peritoneum: There is no intraperitoneal free fluid or free air. No suspicious lymphadenopathy. Vasculature: Normal without aneurysm. Musculoskeletal: Degenerative changes of the spine without suspicious osseous lesion or compression fracture. Pelvis: The uterus is surgically absent. No adnexal mass. The urinary bladder is normal. IMPRESSION: 1. No acute abnormality in the abdomen or pelvis. Dictated by: Dictated on workstation # [id number]
[2021-09-27] MEDS ORDERED: LIDOCAINE 2% VISCOUS 15 ML UDC PO ONE (10:45)
[2021-09-27] MEDS ORDERED: ANTACID SUSP 30 ML UDC (MYLANTA) PO ONE (10:45)
[2021-09-27] MEDS ORDERED: ONDA4TAB11 PO ×2 (12:02→12:05)
[2021-09-27] MEDS ORDERED: TRAM-42 PO ×2 (12:02→12:05)
[2021-09-27 12:18] VITALS: BP 148/84
== END 2021-09-27 12:18 | disposition home or self-care (01) ==
LOC: EDUNIT# 07:50 → ER 07:52
DX: R10.11 Right upper quadrant pain (principal); R11.2 Nausea with vomiting, unspecified; M54.9 Dorsalgia, unspecified; Z91.040 Latex allergy status
CPT/HCPCS: 36415; 71045; 74177; 80053; 81000; 83690; 83735; 83874; 83880; 84484; 85025; 85610; 85730; 86141; 93005; 93041

== ENCOUNTER 2021-10-13 04:39 | Observation (INO) | payer BC ==
[~2021-10-13] VITALS: Ht 162.6 cm; Wt 92.1 kg
[~2021-10-13 04:39] MED LIST changes: +TRAM-42 PO
--- NOTE | 2021-10-13 05:12 | ED Chest Pain ---
General Chief Complaint: Chest Pain Stated Complaint: CHEST PAIN, SOB,HEADACHE Source: patient Exam Limitations: no limitations History of Present Illness Date Seen by Provider: Oct 13, 2021 Time Seen by Provider: 04:55 Initial Comments Patient to the ER by private conveyance from home with chief complaint that she drove home last evening from [place] and did not feel well was lightheaded dizzy and noted her heart rate to be elevated upwards of 200 and started experiencing some chest pain at 10 PM. She does not have a history of coronary disease but has had multiple ablations for atrial fibrillation with rapid ventricular response. She is known to Dr. Ruvalcaba and Dr. Nunn's office as well as Dr. Deng in [place]. She states she did not tolerate metoprolol and is not on any rate limiting medicines at this time. She does take a clonidine as needed for high blood pressure. She is not a smoker has no diabetes or hyperlipidemia. She is having some chest pain in the substernal mid chest. It does not radiate. She is not having nausea fevers chills cough shortness of air diarrhea or abdominal pain. She has a history of paroxysmal atrial fibrillation with a LENORE August 26, 2021. She has a [employer] permanent pacemaker for history of sinus node dysfunction. She has had chest pain with her tachycardia in the past and seems to be related to her A. fib. She is on Xarelto. Cardiac catheterization November 2020 showing normal coronaries with a normal LV function. History of COPD. Last time she was here she had diltiazem 20 mg IV push which did help slow her ventricular rate. In the past apparently she had difficulty tolerating diltiazem because it caused hypotension. Allergies and Home Medications Allergies Coded Allergies: Latex, Natural Rubber (Unverified Allergy, Intermediate, Shortness of Breath, 09/27/20) Patient Home Medication List Home Medication List Reviewed: Yes Albuterol Sulfate (Albuterol Sulfate) 1.25 Mg/3 Ml Vial.neb, 3 ML NEB Q8H PRN for SHORTNESS OF BREATH Prescribed by: ELISE DUDLEY on 10/16/21 0904 Amiodarone HCl (Amiodarone HCl) 200 Mg Tablet, 200 MG PO BID Prescribed by: ELISE DUDLEY on 10/16/21 1236 Clonidine HCl (Clonidine HCl) 0.1 Mg Tablet, 0.1 MG PO BID PRN for BLOOD PRESSURE, (Reported) Entered as Reported by: LEOBARDO CARLIN on 08/26/211042 Last Action: Reviewed Dexlansoprazole (Dexlansoprazole Dr) 60 Mg Cap.dr.bp, 60 MG PO 1700, (Reported) Entered as Reported by: LEOBARDO CARLIN on 10/14/211101 Last Action: Reviewed Diazepam (Diazepam) 5 Mg Tablet, 5 MG PO BID PRN for ANXIETY, (Reported) Entered as Reported by: LEOBARDO CARLIN on 08/26/211042 Last Action: Reviewed Diltiazem HCl (Diltiazem 24Hr ER) 120 Mg Cap.er.24h, 120 MG PO DAILY Prescribed by: ELISE DUDLEY on 10/16/21 1236 Fish Oil/Dha/Epa (Fish Oil 1,200 mg Fish Oil) 1 Each Capsule, 1 EACH PO DAILY, (Reported) Entered as Reported by: LEOBARDO CARLIN on 08/26/211042 Last Action: Reviewed Fluticasone Furoate (Arnuity Ellipta) 100 Mcg Blst.w.dev, 100 MCG IH DAILY, (Reported) Entered as Reported by: LEOBARDO CARLIN on 10/14/211101 Last Action: Reviewed Furosemide (Furosemide) 20 Mg Tablet, 20 MG PO DAILY, (Reported) Entered as Reported by: LEOBARDO CARLIN on 08/26/211042 Last Action: Reviewed Levocetirizine Dihydrochloride (Levocetirizine Dihydrochloride) 5 Mg Tablet, 5 MG PO HS, (Reported) Entered as Reported by: LEOBARDO CARLIN on 10/14/211101 Last Action: Reviewed Levothyroxine Sodium (Levothyroxine Sodium) 112 Mcg Tablet, 112 MCG PO DAILY, (Reported) Entered as Reported by: LEOBARDO CARLIN on 08/26/211042 Last Action: Reviewed Metoclopramide HCl (Metoclopramide HCl) 10 Mg Tablet, 10 MG PO QIDACHS, (Reported) Entered as Reported by: LEOBARDO CARLIN on 08/26/211042 Last Action: Reviewed Ondansetron (Ondansetron Odt) 4 Mg Tab.rapdis, 4 MG PO Q6H PRN for NAUSEA/VOMITING-1ST LINE, (Reported) Entered as Reported by: LEOBARDO CARLIN on 10/14/211101 Last Action: Reviewed Rivaroxaban (Xarelto) 20 Mg Tablet, 20 MG PO 1700, (Reported) Entered as Reported by: LEOBARDO CARLIN on 10/14/211101 Last Action: Reviewed Sumatriptan Succinate (Imitrex) 50 Mg Tab, 50 MG PO DAILY PRN for HEADACHE Prescribed by: ELISE DUDLEY on 10/16/21 0904 Vitamin E Mixed (Vitamin E) 100 Unit Tablet, 100 UNIT PO DAILY, (Reported) Entered as Reported by: LEOBARDO CARLIN on 08/26/211042 Last Action: Reviewed [Vit C/D3/Zinc] , 1 EA PO DAILY, (Reported) Entered as Reported by: LEOBARDO CARLIN on 10/14/211101 Last Action: Reviewed Discontinued Medications Acetaminophen (Tylenol Extra Strength) 500 Mg Tablet, 1,000 MG PO Q8H PRN for PAIN-MILD (1-4), (Reported) Discontinued Reason: No Longer Taking Entered as Reported by: LEOBARDO CARLIN on 08/26/211044 Last Action: Discontinued Albuterol Sulfate (Proventil Hfa) 6.7 Gm Hfa.aer.ad, 2 PUFF INH Q6H PRN for SHORTNESS OF BREATH, (Reported) Discontinued Reason: No Longer Taking Entered as Reported by: LEOBARDO CARLIN on 08/26/211042 Last Action: Discontinued Albuterol Sulfate (Proventil Hfa) 6.7 Gm Hfa.aer.ad, 2 PUFF INH Q6H PRN for SHORTNESS OF BREATH, (Reported) Entered as Reported by: LEOBARDO CARLIN on 10/14/211101 Last Action: Reviewed Docusate Sodium (Docusate Sodium) 100 Mg Capsule, 100 MG PO DAILY, (Reported) Discontinued Reason: No Longer Taking Entered as Reported by: LEOBARDO CARLIN on 08/26/211042 Last Action: Discontinued Dronedarone HCl (Multaq) 400 Mg Tablet, 400 MG PO BID Discontinued Reason: No Longer Taking Prescribed by: ERIKA RUVALCABA on 08/27/21 0887 Last Action: Discontinued Fluticasone Furoate (Arnuity Ellipta) 100 Mcg Blst.w.dev, 1 PUFF INH DAILY PRN for SHORTNESS OF BREATH, (Reported) Discontinued Reason: No Longer Taking Entered as Reported by: LEOBARDO CARLIN on 08/26/21 104 Last Action: Discontinued Ondansetron (Ondansetron Odt) 4 Mg Tab.rapdis, 4 MG PO Q8H PRN for nausea Discontinued Reason: No Longer Taking Prescribed by: ANDREE BUTT on 09/14/21 2017 Last Action: Discontinued Ondansetron (Ondansetron Odt) 4 Mg Tab.rapdis, 4 MG PO Q4H PRN for NAUSEA/VOMITING Discontinued Reason: Duplicate Order Prescribed by: KINGSLEY DAY on 09/27/21 1205 Last Action: Discontinued Rivaroxaban (Xarelto Tablet) 20 Mg Tablet, 20 MG PO DAILY@1700 Discontinued Reason: No Longer Taking Prescribed by: ERIKA RUVALCABA on 08/27/21 0857 Last Action: Discontinued Topiramate (Topiramate) 50 Mg Tablet, 100 MG PO DAILY, (Reported) Discontinued Reason: No Longer Taking Entered as Reported by: LEOBARDO CARLIN on 08/26/211042 Last Action: Discontinued Tramadol HCl (Ultram) 50 Mg Tablet, 50 MG PO Q6H PRN for PAIN-MODERATE (5-7) Discontinued Reason: No Longer Taking Prescribed by: KINGSLEY DAY on 09/27/21 120 Last Action: Discontinued Vit C/Vit D3/E/Zinc/Elderberry (Airborne Elderberry Gummy) 1 Each Tab.chew, 1 EACH PO DAILY, (Reported) Discontinued Reason: No Longer Taking Entered as Reported by: LEOBARDO CARLIN on 08/26/211042 Last Action: Discontinued Wheat Dextrin (Benefiber) 1 Each Powd.pack, 1 EACH PO DAILY, (Reported) Discontinued Reason: No Longer Taking Entered as Reported by: LEOBARDO CARLIN on 08/26/211042 Last Action: Discontinued Review of Systems Review of Systems Constitutional: No chills, No diaphoresis EENTM: No Blurred Vision, No Eye Pain Respiratory: Denies Cough, Denies Shortness of Air Cardiovascular: Chest Pain; Denies Edema, Denies Lightheadedness Gastrointestinal: Denies Abdominal Pain, Denies Constipated, Denies Diarrhea, Denies Nausea Genitourinary: Denies Burning, Denies Discharge Musculoskeletal: No back pain, No joint pain Skin: No pruritus, No rash All Other Systems Reviewed Negative Unless Noted: Yes Past Vyrfygb-Wueeyl-Kjdbrb Hx Patient Social History Tobacco Use?: No Use of E-Cig and/or Vaping dev: No Immunizations Up To Date Tetanus Booster (TDap): Less than 5yrs PED Vaccines UTD: Yes First/Initial COVID19 Vaccinat: unvaccinated Second COVID19 Vaccination Arley: NONE Third COVID19 Vaccination Date: NONE Seasonal Allergies Seasonal Allergies: Yes Past Medical History Surgery/Hospitalization HX: pacemaker, CHF, A-fib, Cardiac cath, 3 cardiac ablasions, hysterectomy, appendectomy, tonsillectomy, titi, hiatal hernia Surgeries: Yes (D&C'S, LAPAROSCOPY, UVULA REMOVED, hiatal H. 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 oz. kg; 34.00 BMI Method: General Appearance: WD/WN, Anxious, Mild Distress HEENT: PERRL/EOMI, Pharynx Normal, Moist Mucous Membranes Neck: Full Range of Motion, Normal Inspection, Non Tender Respiratory: Lungs Clear, Normal Breath Sounds, No Accessory Muscle Use, No Respiratory Distress Cardiovascular: Regular Rate, Rhythm, No Edema, Normal Peripheral Pulses, Tachycardia (120) Extremity: Normal Capillary Refill, Normal Inspection, No Pedal Edema Neurologic/Psychiatric: Alert, Oriented x3 Skin: Normal Color, Warm/Dry Progress/Results/Core Measures Results/Orders Lab Results Laboratory Tests Test 10/13/21 05:30 Range/Units White Blood Count 8.1 4.3-11.0 10^3/uL Red Blood Count 4.91 3.80-5.11 10^6/uL Hemoglobin 14.5 11.5-16.0 g/dL Hematocrit 41 35-52 % Mean Corpuscular Volume 84 80-99 fL Mean Corpuscular Hemoglobin 30 25-34 pg Mean Corpuscular Hemoglobin Concent 35 32-36 g/dL Red Cell Distribution Width 12.9 10.0-14.5 % Platelet Count 258 130-400 10^3/uL Mean Platelet Volume 10.5 9.0-12.2 fL Immature Granulocyte % (Auto) 0 % Neutrophils (%) (Auto) 64 42-75 % Lymphocytes (%) (Auto) 26 12-44 % Monocytes (%) (Auto) 7 0-12 % Eosinophils (%) (Auto) 2 0-10 % Basophils (%) (Auto) 0 0-10 % Neutrophils # (Auto) 5.2 1.8-7.8 10^3/uL Lymphocytes # (Auto) 2.1 1.0-4.0 10^3/uL Monocytes # (Auto) 0.6 0.0-1.0 10^3/uL Eosinophils # (Auto) 0.1 0.0-0.3 10^3/uL Basophils # (Auto) 0.0 0.0-0.1 10^3/uL Immature Granulocyte # (Auto) 0.0 0.0-0.1 10^3/uL Prothrombin Time 19.3 H 12.2-14.7 SEC INR Comment 1.6 H 0.8-1.4 Activated Partial Thromboplast Time 43 H 24-35 SEC Sodium Level 142 135-145 MMOL/L Potassium Level 3.5 L 3.6-5.0 MMOL/L Chloride Level 107 98-107 MMOL/L Carbon Dioxide Level 20 L 21-32 MMOL/L Anion Gap 15 H 5-14 MMOL/L Blood Urea Nitrogen 12 7-18 MG/DL Creatinine 0.77 0.60-1.30 MG/DL Estimat Glomerular Filtration Rate 92 BUN/Creatinine Ratio 16 Glucose Level 148 H 70-105 MG/DL Calcium Level 9.0 8.5-10.1 MG/DL Corrected Calcium 9.0 8.5-10.1 MG/DL Magnesium Level 1.7 1.6-2.4 MG/DL Total Bilirubin 0.6 0.1-1.0 MG/DL Aspartate Amino Transf (AST/SGOT) 25 5-34 U/L Alanine Aminotransferase (ALT/SGPT) 41 0-55 U/L Alkaline Phosphatase 100 40-136 U/L Myoglobin 39.8 10.0-92.0 NG/ML Troponin I < 0.028 <0.028 NG/ML Total Protein 7.1 6.4-8.2 GM/DL Albumin 4.0 3.2-4.5 GM/DL My Orders Orders - HUBERT GENTILE Continuous Ekg Monitoring (10/13/21 04:44) Ekg Tracing (10/13/21 04:44) Cbc With Automated Diff (10/13/21 05:06) Magnesium (10/13/21 05:06) Chest 1 View, Ap/Pa Only (10/13/21 05:06) Comprehensive Metabolic Panel (10/13/21 05:06) Myoglobin Serum (10/13/21 05:06) Protime With Inr (10/13/21 05:06) Partial Thromboplastin Time (10/13/21 05:06) O2 (10/13/21 05:06) Lipid Panel (10/14/21 06:00) Ed Iv/Invasive Line Start (10/13/21 05:06) Troponin I Ayden (10/13/21 05:06) Aspirin Chewable Tablet (Baby Aspirin Ch (10/13/21 05:15) Ed Iv/Invasive Line Start (10/13/21 05:20) Ns Iv 1000 Ml (Sodium Chloride 0.9%) (10/13/21 05:30) Diltiazem Drip Pre-Mix (Cardizem Drip Pr (10/13/21 05:30) Diltiazem Injection (Cardizem Injection) (10/13/21 05:30) Potassium Chloride (Tablet) (K Dur Table (10/13/21 06:00) Ondansetron Injection (Zofran Injectio (10/13/21 06:00) Medications Given in ED Vital Signs/I&O 10/13/21 10/13/21 04:44 04:44 Temp 36.2 Pulse 161 Resp 24 B/P (MAP) 142/92 (109) Pulse Ox 97 97 O2 Delivery Room Air Room Air Progress Progress Note #1: Time: 05:17 Progress Note Patient is in a flutter and in the past has responded to Cardizem so we will give her a dose of Cardizem 20 mg and some IV fluids. We will check some labs however given her recent cardiac catheterization and no history of coronary disease it seems unlikely this chest pain is anything other than related to the tachycardia. Progress Note #2: Time: 06:16 Progress Note Patient is having some nausea so 8 mg Zofran were ordered. No vomiting. Patient is having a headache so we ordered some Tylenol. Initial ECG Impression Date: Oct 13, 2021 Initial ECG Impression Time: 04:51 Initial ECG Rate: 127 Initial ECG Rhythm: S.Tach Initial ECG Intervals: Normal Initial ECG Impression: Normal Comment Atrial flutter with predominant 2-1 AV block. PVCs noted. No clinically relevant ST elevation or depression Diagnostic Imaging Diagonstic Imaging: Xray Plain Films/CT/US/NM/MRI: chest Comments [facility] [place], [place] NAME: OLESYA NEVES [facility] REC#: [id number] PT STATUS: ADM Cris : 1965 PHYSICIAN: HUBERT GENTILE MD ADMIT DATE: 10/13/21/ICU Signed Date of Exam:10/13/21 CHEST 1 VIEW, AP/PA ONLY INDICATION: Chest pain. EXAMINATION: Chest on 10/13/2021. COMPARISON: 09/27/2021. FINDINGS: There is a pacemaker on the left which is stable. Heart is unremarkable. Pulmonary vasculature is clear. Lungs and pleural spaces are unremarkable with no infiltrates, effusions, or pneumothorax. IMPRESSION: No acute cardiopulmonary process. Dictated by: Dictated on workstation # [id number] Dict: 10/13/21711 Trans: 10/13/21817 [id number] Interpreted by: GEORGINA MCCLAIN MD Electronically signed by: GEORGINA MCCLAIN MD 10/13/21817 Reviewed: Reviewed by Me Departure Communication (Admissions) Time/Spoke to Admitting Phy: 06:15 Left a voicemail with Dr. Orlando, internal medicine. Time/Spoke to Consulting Phy: 06:14 Discussed the case with Dr. Whittington, cardiology and he agrees to consult on the case. Impression Primary Impression: Atrial fibrillation with rapid ventricular response Additional Impression: Chest pain Qualified Codes: R07.9 - Chest pain, unspecified Disposition: ADMITTED INPATIENT Condition: Stable Admissions Decision to Admit Reason: Admit from ER (General) Decision to Admit/Date: Oct 13, 2021 Time/Decision to Admit Time: 06:10 Departure-Patient Inst. Referrals: BALWINDER DEAN MD (PCP/Family) Primary Care Physician Scripts Diltiazem HCl (Diltiazem 24Hr ER) 120 Mg Cap.er.24h 120 MG PO DAILY, #30 CAP Prov: ELISE DUDLEY MD 10/16/21 Amiodarone HCl (Amiodarone HCl) 200 Mg Tablet 200 MG PO BID, #60 TAB Prov: ELISE DUDLEY MD 10/16/21 Sumatriptan Succinate (Imitrex) 50 Mg Tab 50 MG PO DAILY PRN for HEADACHE, #2 TAB Prov: ELISE DUDLEY MD 10/16/21 Albuterol Sulfate (Albuterol Sulfate) 1.25 Mg/3 Ml Vial.neb 3 ML NEB Q8H PRN for SHORTNESS OF BREATH, #30 EA Prov: ELISE DUDLEY MD 10/16/21 HUBERT GENTILE Oct 13, 2021 05:12
[2021-10-13] MEDS ORDERED: ASPIRIN 81 MG CHEW (CHILDREN'S ASA) PO ONE (05:15)
[2021-10-13] MEDS ORDERED: dilTIAZem DRIP PRE-MIX 125 ML IV SCH (05:30)
[2021-10-13] MEDS ORDERED: NS IV 1000 ML 1,000 ML IV SCH (05:30)
[2021-10-13 05:40] LABS: BASOPHILS % (AUTO) 0 % (0-10); EOSINOPHILS # (AUTO) 0.1 10^3/uL (0.0-0.3); EOSINOPHILS % (AUTO) 2 % (0-10); HEMATOCRIT 41 % (35-52); HEMOGLOBIN 14.5 g/dL (11.5-16.0); LYMPHOCYTES # (AUTO) 2.1 10^3/uL (1.0-4.0); LYMPHOCYTES % (AUTO) 26 % (12-44); MEAN CORPUSCULAR HEMOGLOBIN 30 pg (25-34); MEAN CORPUSCULAR HGB CONC 35 g/dL (32-36); MEAN CORPUSCULAR VOLUME 84 fL (80-99); MEAN PLATELET VOLUME 10.5 fL (9.0-12.2); MONOCYTES # (AUTO) 0.6 10^3/uL (0.0-1.0); MONOCYTES % (AUTO) 7 % (0-12); NEUTROPHILS # (AUTO) 5.2 10^3/uL (1.8-7.8); NEUTROPHILS % (AUTO) 64 % (42-75); PLATELET COUNT 258 10^3/uL (130-400); WHITE BLOOD COUNT 8.1 10^3/uL (4.3-11.0)
[2021-10-13 05:51] LABS: INR 1.6 (0.8-1.4); POTASSIUM 3.5 MMOL/L (3.6-5.0); PROTHROMBIN TIME PATIENT 19.3 SEC (12.2-14.7)
[2021-10-13 05:53] LABS: TOTAL PROTEIN 7.1 GM/DL (6.4-8.2)
[2021-10-13 05:55] LABS: BILIRUBIN,TOTAL 0.6 MG/DL (0.1-1.0)
[2021-10-13 05:57] LABS: CREATININE SERUM 0.77 MG/DL (0.60-1.30)
[2021-10-13 05:59] LABS: MAGNESIUM 1.7 MG/DL (1.6-2.4)
[2021-10-13] MEDS ORDERED: ONDANSETRON 4 MG/2 ML (SDV) Z0FRAN IVP ONE (06:00)
[2021-10-13] MEDS ORDERED: KCL 20 MEQ TAB (K-DUR) PO ONE (06:00)
[2021-10-13] MEDS ORDERED: ACETAMINOPHEN 325 MG TABLET PO ONE (06:30)
--- NOTE | 2021-10-13 07:22 | Diagnostic Imaging Report ---
INDICATION: Chest pain. EXAMINATION: Chest on 10/13/2021. COMPARISON: 09/27/2021. FINDINGS: There is a pacemaker on the left which is stable. Heart is unremarkable. Pulmonary vasculature is clear. Lungs and pleural spaces are unremarkable with no infiltrates, effusions, or pneumothorax. IMPRESSION: No acute cardiopulmonary process. Dictated by: Dictated on workstation # [id number]
[2021-10-13] MEDS ORDERED: dilTIAZem DRIP 125 MG/125 ML DRIP IV SCH (08:30)
[2021-10-13] MEDS ORDERED: ACETAMINOPHEN 325 MG TABLET PO PRN (08:30)
[2021-10-13] MEDS ORDERED: CATHETER FLUSH 10 ML SYR IVP PRN (08:30)
--- NOTE | 2021-10-13 09:04 | Tele-ICU Progress Note ---
Subjective Date Seen by a Provider: Oct 13, 2021 Time Seen by a Provider: 07:20 Subjective/Events-last exam This virtual visit was conducted using real time audio/video. Thank you for asking us to see this patient for recurrent afib w RVR. PMH: Afib s/p ablation x 3, htn., PM, COPD, HL, hypothyroid,dep. SH: smoking history Y FH: Non-contributory ROS: li asin HPI. PE: VSS. Afib 95-100/min. . O2 sat 99$ on RA HEENT: No obvious masses, adenopathy or JVD. Chest: clear to auscultation. CV: Irreg S1 S2 No murmur or added sounds. Abd: Non-tender. Bowel sounds Y. : Unremarkable. Garner N [employer] WORK[employer]/psychiatric: Grossly intact. No obvious focal findings. Extremities: No edema. Capillary refill < 3 seconds. Skin: unremarkable. Results: Decreased K 3.5. CXR: clear. Available chart/ vitals / labs / images reviewed. Video assessment done using teleICU camera, rest of exam as per RN. A/P: Afib/RVR. Monitor for increasing oxygenation needs.. Critical Care: critically ill patient. Cont. Dilt. replace K Discussed with RN Isabella.. Asked RN to reach out to eICU if any questions or concerns later. Time spent with patient/coordination of care with other health professionals (mins): 20 Sepsis Event Evaluation Height, Weight, BMI Height: '" Weight: lbs. oz. kg; 37.21 BMI Method: Exam Exam Patient acknowledged, consented, and participated in this virtual visit which was conducted using real time audio/video Vital Signs Date Time Temp Pulse Resp B/P (MAP) Pulse Ox O2 Delivery O2 Flow Rate FiO2 10/13/21 08:26 117 10/13/21 08:07 117 20 132/93 95 10/13/21 04:44 97 Room Air 10/13/21 04:44 36.2 161 24 142/92 (109) 97 Room Air Height & Weight Height: '" Weight: lbs. oz. kg; 37.21 BMI Method: General Appearance: WD/WN, Anxious, Mild Distress HEENT: PERRL/EOMI, Pharynx Normal, Moist Mucous Membranes Neck: Full Range of Motion, Normal Inspection, Non Tender Respiratory: Lungs Clear, Normal Breath Sounds, No Accessory Muscle Use, No Respiratory Distress Cardiovascular: Regular Rate, Rhythm, No Edema, Normal Peripheral Pulses, Tachycardia (120) Capillary Refill: Less Than 3 Seconds Extremity: Normal Capillary Refill, Normal Inspection, No Pedal Edema Neurologic/Psychiatric: Alert, Oriented x3 Skin: Normal Color, Warm/Dry Results Lab Laboratory Tests 10/13/21 05:30 Assessment/Plan Assessment/Plan See free text Critical Care: Critically Ill Patient KARLIE CHASE MD Oct 13, 2021 09:04
[2021-10-13] MEDS: LACTATED RINGERS 1,000 ML IV SCH ×2 (09:46→18:20)
[2021-10-13] MEDS ORDERED: LIDOCAINE 2% VISCOUS 15 ML UDC PO ONE (10:45)
[2021-10-13] MEDS ORDERED: PANTOPRAZOLE 40 MG (PROTONIX) TAB PO ONE (10:45)
[2021-10-13] MEDS ORDERED: ANTACID SUSP 30 ML UDC (MYLANTA) PO ONE (10:45)
--- NOTE | 2021-10-13 10:49 | Consultation-Cardiology ---
HPI-Cardiology Cardiology Consultation: Date of Consultation 10/13/21 Date of Admission 10/13/21 Attending Physician Helen Orlando MD Admitting Physician Haroon Severino MD Consulting Physician CINDA TRIANA JR, MD HPI: Time Seen by a Provider: 10:43 Chief Complaint: Reason for consultation: Atrial fibrillation/flutter. I had the pleasure of seeing Maria Fernanda in the intensive care unit at [facility] in [place], [place] this morning. She is well-known to our service. She follows with one of my partners, Dr. Ruvalcaba. I have also seen her in the past. She has a history of atrial fibrillation with 3 previous ablations and more recently was found to have atrial flutter. She is scheduled to have an at [facility] flutter ablation in December at [facility]. When she was diagnosed with the atrial flutter and August 2021 she underwent a cardioversion and then was placed on dronedarone. However, she states the dronedarone was causing bradycardia and low blood pressures and she discontinued the medication. From what she can gather, she remained in sinus rhythm until the past day or so. Last evening around 10 PM she started developing palpitations with a sensation of rapid heartbeats. She checked her heart rate and it was as high as 200 bpm. She also had a headache, dyspnea and chest tightness. These are the symptoms she often gets with the atrial fibrillation/flutter. When the tachycardia would not stop, she came to the emergency room for further evaluation. She was again found to be in atrial fibrillation/flutter with a rapid ventricular rate and was started on diltiazem infusion and admitted to the intensive care unit. This morning her heart rates are improved but she still feels some chest tightness and dyspnea. Her palpitations are improved. She denies paroxysmal nocturnal dyspnea, orthopnea, syncope, or ankle edema. Because of the recurrent atrial arrhythmias, a cardiology consultation was requested. Certain portions of this document may have been dictated utilizing voice recognition technology. Inherent to this technology, typographical and grammatical errors may exist. As much as I am diligent to identify and correct these mistakes, some errors may remain in the document. Review of Systems-Cardiology Review of Systems Other comments Review of 10 organ systems is as per the history of present illness, otherwise negative. All Other Systems Reviewed Negative Unless Noted: Yes RZC-Hryvmj-Xuzmeh Hx Patient Social History 2nd Hand Smoke Exposure: No Have you traveled recently?: Yes Where was recent travel?: [place] Alcohol Use?: No Pt feels they are or have been: Yes Immunizations Up To Date Tetanus Booster (TDap): Less than 5yrs Date of Influenza Vaccine: May 04, 2020 Past Medical History PMH As described under Assessment. Family Medical History Family History: Colon cancer Allergies and Home Medications Allergies Coded Allergies: Latex, Natural Rubber (Unverified Allergy, Intermediate, Shortness of Breath, 09/27/20) Patient Home Medication List Home Medication List Reviewed: Yes Albuterol Sulfate (Albuterol Sulfate) 1.25 Mg/3 Ml Vial.neb, 3 ML NEB Q8H PRN for SHORTNESS OF BREATH, (Reported) Entered as Reported by: LEOBARDO CARLIN on 08/26/211042 Last Action: Held Albuterol Sulfate (Proventil Hfa) 6.7 Gm Hfa.aer.ad, 2 PUFF INH Q6H PRN for SHORTNESS OF BREATH, (Reported) Entered as Reported by: LEOBARDO CARLIN on 08/26/211042 Last Action: Reviewed Clonidine HCl (Clonidine HCl) 0.1 Mg Tablet, 0.1 MG PO 1200 PRN for BLOOD PRESSURE, (Reported) Entered as Reported by: LEOBARDO CARLIN on 08/26/211042 Last Action: Continued Diazepam (Diazepam) 5 Mg Tablet, 5 MG PO BID, (Reported) Entered as Reported by: LEOBARDO CARLIN on 08/26/211042 Last Action: Continued Docusate Sodium (Docusate Sodium) 100 Mg Capsule, 100 MG PO DAILY, (Reported) Entered as Reported by: LEOBARDO CARLIN on 08/26/211042 Last Action: Continued Fish Oil/Dha/Epa (Fish Oil 1,200 mg Fish Oil) 1 Each Capsule, 1 EACH PO DAILY, (Reported) Entered as Reported by: LEOBARDO CARLIN on 08/26/211042 Last Action: Reviewed Furosemide (Furosemide) 20 Mg Tablet, 20 MG PO DAILY, (Reported) Entered as Reported by: LEOBARDO CARLIN on 08/26/211042 Last Action: Continued Levothyroxine Sodium (Levothyroxine Sodium) 112 Mcg Tablet, 112 MCG PO DAILY, (Reported) Entered as Reported by: LEOBARDO CARLIN on 08/26/211042 Last Action: Continued Metoclopramide HCl (Metoclopramide HCl) 10 Mg Tablet, 10 MG PO QID, (Reported) Entered as Reported by: LEOBARDO CARLIN on 08/26/211042 Last Action: Continued Ondansetron (Ondansetron Odt) 4 Mg Tab.rapdis, 4 MG PO Q8H PRN for nausea Prescribed by: ANDREE BUTT on 09/14/212346 Last Action: Held Ondansetron (Ondansetron Odt) 4 Mg Tab.rapdis, 4 MG PO Q4H PRN for NAUSEA/VOMITING Prescribed by: KINGSLEY DAY on 09/27/21 120 Last Action: Continued Potassium Chloride (K-Tab ER) 10 Meq Tablet.er, 10 MEQ PO DAILY Prescribed by: ERIKA RUVALCABA on 08/27/21856 Last Action: Continued Rivaroxaban (Xarelto Tablet) 20 Mg Tablet, 20 MG PO DAILY@1700 Prescribed by: ERIKA RUVALCABA on 08/27/21856 Last Action: Continued Topiramate (Topiramate) 50 Mg Tablet, 100 MG PO DAILY, (Reported) Entered as Reported by: LEOBARDO CARLIN on 08/26/211042 Last Action: Reviewed Tramadol HCl (Ultram) 50 Mg Tablet, 50 MG PO Q6H PRN for PAIN-MODERATE (5-7) Prescribed by: KINGSLEY DAY on 09/27/211204 Last Action: Continued Vit C/Vit D3/E/Zinc/Elderberry (Airborne Elderberry Gummy) 1 Each Tab.chew, 1 EACH PO DAILY, (Reported) Entered as Reported by: LEOBARDO CARLIN on 08/26/211042 Last Action: Reviewed Vitamin E Mixed (Vitamin E) 100 Unit Tablet, 100 UNIT PO DAILY, (Reported) Entered as Reported by: LEOBARDO CARLIN on 08/26/211042 Last Action: Reviewed Wheat Dextrin (Benefiber) 1 Each Powd.pack, 1 EACH PO DAILY, (Reported) Entered as Reported by: LEOBARDO CARLIN on 08/26/211042 Last Action: Reviewed Discontinued Medications Acetaminophen (Tylenol Extra Strength) 500 Mg Tablet, 1,000 MG PO Q8H PRN for PAIN-MILD (1-4), (Reported) Discontinued Reason: No Longer Taking Entered as Reported by: LEOBARDO CARLIN on 08/26/21 1045 Last Action: Discontinued Dronedarone HCl (Multaq) 400 Mg Tablet, 400 MG PO BID Discontinued Reason: No Longer Taking Prescribed by: ERIKA RUVALCABA on 08/27/21 0857 Last Action: Discontinued Fluticasone Furoate (Arnuity Ellipta) 100 Mcg Blst.w.dev, 1 PUFF INH DAILY PRN for SHORTNESS OF BREATH, (Reported) Discontinued Reason: No Longer Taking Entered as Reported by: LEOBARDO CARLIN on 08/26/21 1043 Last Action: Discontinued Exam Vital Signs Vital Signs Date Time Temp Pulse Resp B/P (MAP) Pulse Ox O2 Delivery O2 Flow Rate FiO2 10/13/21 13:00 87 18 128/94 94 Room Air 10/13/21 12:09 36.4 Physical Exam General: Alert. No acute distress. Well nourished and appears stated age. She is obese. Eye: Extraocular movements are intact. Conjunctivae are clear. There are no xanthelasma. HENT: Normocephalic. Atraumatic. Carotid pulsations 2/2 without bruits. Neck: Jugular venous pressure does not appear elevated. No thyromegaly appreciated. Respiratory: Lungs are clear to auscultation. Respirations are non-labored. Breath sounds are equal. Symmetrical chest wall expansion. Cardiovascular: Normal rate. Irregular rhythm. No murmur. No gallop. Point of maximal impulse is not appear displaced. Good pulses equal in all extremities. No edema. Gastrointestinal: Soft. Normal bowel sounds. Skin: Skin turgor is normal. There is no pallor. Musculoskeletal: No kyphosis or scoliosis appreciated. Neurologic: Alert and oriented to person, place, time. Cranial nerves 3-12 appear grossly intact. The patient has good motor tone strength in the upper and lower extremities bilaterally. Psychiatric: Cooperative. Appropriate mood & affect. Labs Laboratory Tests Test 10/13/21 05:30 10/13/21 11:07 Range/Units White Blood Count 8.1 4.3-11.0 10^3/uL Red Blood Count 4.91 3.80-5.11 10^6/uL Hemoglobin 14.5 11.5-16.0 g/dL Hematocrit 41 35-52 % Mean Corpuscular Volume 84 80-99 fL Mean Corpuscular Hemoglobin 30 25-34 pg Mean Corpuscular Hemoglobin Concent 35 32-36 g/dL Red Cell Distribution Width 12.9 10.0-14.5 % Platelet Count 258 130-400 10^3/uL Mean Platelet Volume 10.5 9.0-12.2 fL Immature Granulocyte % (Auto) 0 % Neutrophils (%) (Auto) 64 42-75 % Lymphocytes (%) (Auto) 26 12-44 % Monocytes (%) (Auto) 7 0-12 % Eosinophils (%) (Auto) 2 0-10 % Basophils (%) (Auto) 0 0-10 % Neutrophils # (Auto) 5.2 1.8-7.8 10^3/uL Lymphocytes # (Auto) 2.1 1.0-4.0 10^3/uL Monocytes # (Auto) 0.6 0.0-1.0 10^3/uL Eosinophils # (Auto) 0.1 0.0-0.3 10^3/uL Basophils # (Auto) 0.0 0.0-0.1 10^3/uL Immature Granulocyte # (Auto) 0.0 0.0-0.1 10^3/uL Prothrombin Time 19.3 H 12.2-14.7 SEC INR Comment 1.6 H 0.8-1.4 Activated Partial Thromboplast Time 43 H 24-35 SEC Sodium Level 142 135-145 MMOL/L Potassium Level 3.5 L 3.6-5.0 MMOL/L Chloride Level 107 98-107 MMOL/L Carbon Dioxide Level 20 L 21-32 MMOL/L Anion Gap 15 H 5-14 MMOL/L Blood Urea Nitrogen 12 7-18 MG/DL Creatinine 0.77 0.60-1.30 MG/DL Estimat Glomerular Filtration Rate 92 BUN/Creatinine Ratio 16 Glucose Level 148 H 70-105 MG/DL Calcium Level 9.0 8.5-10.1 MG/DL Corrected Calcium 9.0 8.5-10.1 MG/DL Magnesium Level 1.7 1.6-2.4 MG/DL Total Bilirubin 0.6 0.1-1.0 MG/DL Aspartate Amino Transf (AST/SGOT) 25 5-34 U/L Alanine Aminotransferase (ALT/SGPT) 41 0-55 U/L Alkaline Phosphatase 100 40-136 U/L Myoglobin 39.8 10.0-92.0 NG/ML Troponin I < 0.028 < 0.028 <0.028 NG/ML Total Protein 7.1 6.4-8.2 GM/DL Albumin 4.0 3.2-4.5 GM/DL ECG Impression ECG Comment Electrocardiogram from this morning shows possible atypical atrial flutter with a ventricular rate of 127 bpm with 1 premature ventricular complexes versus aberrancy and diffuse, nonspecific ST-T wave changes. Diagnosis/Problems Diagnosis/Problems (1) Atypical atrial flutter Assessment & Plan: She again seems to be in atypical atrial flutter. She did not tolerate dronedarone. She was not taking any beta-lorna or diltiazem at home. Her heart rates have improved on intravenous diltiazem. I will attempt to transition this over to oral diltiazem and wean off the intravenous diltiazem. She should continue on rivaroxaban for stroke prophylaxis. If she remains in atrial flutter/fibrillation in the morning, we may want to consider a cardioversion at that time. We may also want to consider starting dofetilide or restarting sotalol. I will leave this up to the discretion of her regular head doffer who will be seeing her in the morning. (2) Chest pain Status: Acute Assessment & Plan: She has had 2 undetectable troponin levels. Her chest discomfort did not seem to change with a GI cocktail. The chest pain may just be related to the atrial arrhythmias. However, she does have a known history of hiatal hernia and esophageal reflux disease. She should continue with proton pump inhibitor. (3) Paroxysmal atrial fibrillation Assessment & Plan: Unclear whether or not she is currently having atrial fibrillation or atypical atrial flutter with variable AV block. We will proceed as above. (4) Primary hypertension Assessment & Plan: As above, I have started oral diltiazem for the atrial arrhythmias. (5) Gastroesophageal reflux disease without esophagitis Assessment & Plan: Continue proton pump inhibitor. (6) Sick sinus syndrome Assessment & Plan: She has a permanent pacemaker in place that appears to be functioning normally. (7) Cardiac pacemaker in situ Assessment & Plan: She follows in our outpatient pacemaker monitoring clinic. (8) Obesity Status: Chronic Assessment & Plan: She needs to work on weight loss. This may help reduce the risk of recurrent atrial fibrillation. CINDA TRIANA JR, MD Oct 13, 2021 10:49
[2021-10-13] MEDS ORDERED: ONDANSETRON 4 MG (ZOFRAN) ORAL DISSOLVE TAB PO PRN (11:15)
[2021-10-13] MEDS ORDERED: cloNIDine 0.1 MG (CATAPRES) TAB PO PRN (11:15)
[2021-10-13] MEDS ORDERED: METOCLOPRAMIDE 10 MG (REGLAN) TAB PO SCH (13:00)
[2021-10-13] MEDS: dilTIAZem120 MG (CARDIZEM CD) CAP PO SCH (13:22)
[2021-10-13] MEDS: ONDANSETRON 4 MG/2 ML (SDV) Z0FRAN IV PRN (16:49)
[2021-10-13] MEDS ORDERED: RIVAROXABAN 20 MG TABLET (XARELTO) PO SCH (17:00)
[2021-10-13] MEDS ORDERED: SUCRALFATE 1 GM (CARAFATE) TAB PO ONE (17:15)
[2021-10-13] MEDS ORDERED: SUMAtriptan 50 MG (IMITREX) TAB PO ONE (17:15)
[2021-10-13] MEDS ORDERED: IBUPROFEN 800 MG (MOTRIN) TAB PO ONE (17:15)
--- NOTE | 2021-10-13 17:26 | History & Physical-Hospitalist ---
History of Present Illness HPI/Chief Complaint Maria Fernanda Rondon is a 55-year-old female with past medical history of hypertension, hyperlipidemia, atrial fibrillation on Xarelto, sick sinus syndrome status post pacemaker, hiatal hernia status post surgical repair, who presented with chest pain. She also reports lightheadedness and dizziness. She also noticed that her heart rate was very high. She denies shortness of breath. She has not been on any rate controlling medications for her AFib. She says she is scheduled to undergo an ablation soon. Source: patient Exam Limitations: no limitations Date Seen 10/13/21 Time Seen by a Provider: 10:10 Attending Physician Anderson Orlando MD PCP Haroon Severino MD Referring Physician Date of Admission Oct 13, 2021 at 06:15 Home Medications & Allergies Home Medications Reviewed patient Home Medication Reconciliation performed by pharmacy medication reconciliations electrical power station technician and/or nursing. Patients Allergies have been reviewed. Allergies Allergies Coded Allergies Latex, Natural Rubber (Unverified Allergy, Intermediate, Shortness of Breath, 09/27/20) Past Akwnqfj-Fbcauj-Cwtlxt Hx Patient Social History Tobacco Use?: No Use of E-Cig and/or Vaping dev: No Substance use?: No Alcohol Use?: No Pt feels they are or have been: Yes Immunizations Up To Date Date of Influenza Vaccine: May 04, 2020 First/Initial COVID19 Vaccinat: unvaccinated Second COVID19 Vaccination Arley: NONE Tetanus Booster (TDap): Unknown Hepatitis A: Yes Hepatitis B: Yes PED Vaccines UTD: Yes Seasonal Allergies Seasonal Allergies: Yes Current Status status: No status: No Advance Directives: No Communicates: Verbally Primary Language: Korean Preferred Spoken Language: Korean Is interpretation needed?: No Implanted or Applied Medical D: Pacemaker Past Medical History Surgeries: Appendectomy, Bladder Surgery, Cardiac, Gallbladder, Hysterectomy, Pacemaker, Tonsillectomy COPD Atrial Fibrillation, High Cholesterol, Hypertension, Valvular Heart Disease Headaches /Migraines DIRECTOR [place] History: Hysterectomy, 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, Menopausal Liver Disease/Jaundice, Reina's Esophagus, Polyps, Hiatal Hernia Chronic Back Pain Hypothyroidsim Loss of Vision: Denies Hearing Impairment: Denies Depression Eczema, Psoriasis Blood Disorders: No Hypertension Hyperlipidemia Atrial fibrillation Sick sinus syndrome status post pacemaker Hiatal hernia status post surgical repair Obesity Family Medical History Colon cancer Noncontributory Review of Systems Constitutional: dizziness EENTM: no symptoms reported Respiratory: no symptoms reported Cardiovascular: chest pain Gastrointestinal: no symptoms reported Genitourinary: no symptoms reported Musculoskeletal: no symptoms reported Skin: no symptoms reported Psychiatric/Neurological: No Symptoms Reported Physical Exam Physical Exam Vital Signs Vital Signs - First Documented Capillary Refill : Less Than 3 Seconds Height, Weight, BMI Height: '" Weight: lbs. oz. kg; 37.21 BMI Method: General Appearance: No Apparent Distress, Chronically ill, Obese HEENT: PERRL/EOMI, Pharynx Normal Neck: Normal Inspection, Supple Respiratory: Lungs Clear, Normal Breath Sounds, No Respiratory Distress Cardiovascular: Irregularly Irregular, Tachycardia Gastrointestinal: Normal Bowel Sounds, Non Tender, Soft Extremity: Normal Inspection, Pedal Edema Neurologic/Psychiatric: Alert, Normal Mood/Affect Skin: Normal Color, Warm/Dry Results Results/Procedures Labs Laboratory Tests 10/13/21 05:30 Patient resulted labs reviewed. Imaging: Reviewed Imaging Report Assessment/Plan Admission Diagnosis Chest pain Admission Status: Observation Assessment and Plan Chest pain AFib with RVR Cardiology following Troponins remain negative Started on IV Cardizem Continue Xarelto MIgraine Refusing Tylenol and Ibuprofen Tramadol added Imitrex added HTN HLD Hypothyroidism Anxiety Continue home meds Diagnosis/Problems Diagnosis/Problems (1) Atrial fibrillation with rapid ventricular response Status: Acute (2) Chest pain Status: Acute Clinical Quality Measures AMI/AHF: ASA po Prior to arrival: ANDERSON Marques MD Oct 13, 2021 17:26
[2021-10-13] MEDS: RIVAROXABAN 20 MG TABLET (XARELTO) PO SCH (17:46)
[2021-10-13] MEDS: SUCRALFATE 1 GM (CARAFATE) TAB PO SCH ×2 (18:21→20:49)
[2021-10-13] MEDS: DIAZEPAM 5 MG (VALIUM) TABLET PO SCH (20:48)
[2021-10-13] MEDS: cloNIDine 0.1 MG (CATAPRES) TAB PO SCH (20:48)
[2021-10-13] MEDS ORDERED: DIAZEPAM 5 MG (VALIUM) TABLET PO SCH (21:00)
[2021-10-14] MEDS ORDERED: diphenhydrAMINE 25 MG TAB (BENADRYL) PO ONE (01:31)
[2021-10-14] MEDS: diphenhydrAMINE 25 MG TAB (BENADRYL) PO PRN (01:39)
[2021-10-14] MEDS: LACTATED RINGERS 1,000 ML IV SCH ×3 (01:39→18:28)
[2021-10-14 04:51] LABS: TRIGLYCERIDES 96 MG/DL (<150); VLDL CHOLESTEROL 19 MG/DL (5-40)
[2021-10-14 04:56] LABS: CHOLESTEROL 173 MG/DL (< 200)
[2021-10-14 04:57] LABS: HDL CHOLESTEROL 40 MG/DL (40-60)
[2021-10-14] MEDS: LEVOTHYROXINE 112 MCG (LEVOTHROID) TAB PO SCH (05:16)
[2021-10-14] MEDS: SUCRALFATE 1 GM (CARAFATE) TAB PO SCH ×4 (05:49→20:08)
[2021-10-14 05:57] LABS: BASOPHILS % (AUTO) 1 % (0-10); EOSINOPHILS # (AUTO) 0.1 10^3/uL (0.0-0.3); EOSINOPHILS % (AUTO) 2 % (0-10); HEMATOCRIT 42 % (35-52); LYMPHOCYTES % (AUTO) 46 % (12-44); MEAN CORPUSCULAR HEMOGLOBIN 29 pg (25-34); MEAN CORPUSCULAR HGB CONC 33 g/dL (32-36); MEAN CORPUSCULAR VOLUME 87 fL (80-99); MEAN PLATELET VOLUME 10.9 fL (9.0-12.2); MONOCYTES # (AUTO) 0.4 10^3/uL (0.0-1.0); MONOCYTES % (AUTO) 7 % (0-12); NEUTROPHILS # (AUTO) 2.9 10^3/uL (1.8-7.8); NEUTROPHILS % (AUTO) 45 % (42-75); PLATELET COUNT 256 10^3/uL (130-400); WHITE BLOOD COUNT 6.5 10^3/uL (4.3-11.0)
[2021-10-14 06:11] LABS: ALBUMIN 3.7 GM/DL (3.2-4.5); POTASSIUM 3.7 MMOL/L (3.6-5.0)
[2021-10-14 06:12] LABS: CALCIUM 8.8 MG/DL (8.5-10.1)
[2021-10-14] MEDS: POTASSIUM CL 10MEQ/50ML IVPB 50 ML IV SCH (06:13)
[2021-10-14] MEDS: MAGNESIUM 1 GM/100 ML IVPB 100 ML IV SCH (06:13)
[2021-10-14] MEDS: KCL 20 MEQ TAB (K-DUR) PO SCH (06:13)
[2021-10-14 06:14] LABS: TOTAL PROTEIN 6.5 GM/DL (6.4-8.2)
[2021-10-14 06:15] LABS: BILIRUBIN,TOTAL 0.6 MG/DL (0.1-1.0)
[2021-10-14 06:17] LABS: PHOSPHORUS 2.5 MG/DL (2.3-4.7)
[2021-10-14 06:18] LABS: CREATININE SERUM 0.79 MG/DL (0.60-1.30)
[2021-10-14 06:20] LABS: MAGNESIUM 1.9 MG/DL (1.6-2.4)
[2021-10-14] MEDS ORDERED: LEVOTHYROXINE 112 MCG (LEVOTHROID) TAB PO SCH (06:30)
[2021-10-14] MEDS ORDERED: KCL 10 MEQ TAB (MICRO K) PO SCH (07:00)
[2021-10-14] MEDS: dilTIAZem120 MG (CARDIZEM CD) CAP PO SCH (08:38)
[2021-10-14] MEDS: DIAZEPAM 5 MG (VALIUM) TABLET PO SCH (08:40)
[2021-10-14] MEDS: cloNIDine 0.1 MG (CATAPRES) TAB PO SCH ×3 (08:40→21:10)
[2021-10-14] MEDS: FUROSEMIDE 20 MG (LASIX) TAB PO SCH (08:40)
[2021-10-14] MEDS: PANTOPRAZOLE 40 MG (PROTONIX) TAB PO SCH (08:40)
[2021-10-14] MEDS ORDERED: DOCUSATE SODIUM 100 MG (COLACE) CAP PO SCH (09:00)
[2021-10-14] MEDS ORDERED: toPIRamate 100 MG (TOPAMAX) TAB PO SCH (09:00)
[2021-10-14] MEDS ORDERED: FUROSEMIDE 20 MG (LASIX) TAB PO SCH (09:00)
[2021-10-14] MEDS ORDERED: AMIODARONE (BOLUS) 150 MG/3 ML IV ONE (09:01)
[2021-10-14] MEDS ORDERED: D5W 100 ML IVPB 100 ML IV ONE (09:03)
[2021-10-14] MEDS ORDERED: proPOfol 200 MG/20 ML (DIPRIVAN) VIAL IV ONE (09:14)
[2021-10-14] MEDS ORDERED: AMIODARONE INJECTION 450 MG in D5W IV SOLUTION (EXCEL) 250 ML IV SCH (09:15)
[2021-10-14] MEDS ORDERED: AMIODARONE FOR BOLUS 150 MG in NS (IVPB) 100 ML IV ONE (09:15)
[2021-10-14] MEDS ORDERED: NS (IVPB) 250 ML ONE (09:18)
--- NOTE | 2021-10-14 09:29 | Cardioversion ---
Cardioversion PROCEDURE PHYSICIAN: Erika Ruvalcaba DATE OF PROCEDURE: 10/14/21 DIRECT EXTERNAL ELECTRICAL CARDIOVERSION: Indications: Atrial flutter with rapid ventricular rate Preoperative diagnoses: Atrial flutter with rapid ventricular rate Postoperative diagnosis: Sinus rhythm, Successful Electrical Cardioversion History: Anesthesia: By Anesthesia services Complications: None Specimen: None Contrast: 0 Flouroscopy: none Procedure Details: The patient was brought the laborer shaft sinking after informed consent was taken, all the risks and complications were explained including the risk of stroke. Electrical cardioversion was carried out with anesthesia support with propofol. 120 joules of synchronized shock was delivered through external patches which promptly restored sinus rhythm. The patient tolerated the procedure well. Conclusions: Successful cardioversion in terminating atrial flutter ERIKA RUVALCABA MD Oct 14, 2021 09:29
--- NOTE | 2021-10-14 09:34 | Cardiology Progress Note ---
Subjective Date Seen by Provider: Oct 14, 2021 Time Seen by Provider: 09:30 Subjective/Events-last exam Patient was seen at bedside laying down comfortably. No new complaint Review of Systems General: No Chills, No Night Sweats, No Fatigue, No Malaise, No Appetite, No Other HEENT: No Head Aches, No Visual Changes, No Eye Pain, No Ear Pain, No Dysphasia, No Sinus Congestion, No Post Nasal Drip, No Sore Throat, No Other Pulmonary: No Dyspnea, No Cough, No Pleuritic Chest Pain, No Other Cardiovascular: No: Chest Pain, Palpitations, Orthopnea, Paroxysmal Noc. Dyspnea, Edema, Lt Headedness, Other Objective-Cardiology Exam Last Set of Vital Signs Vital Signs 10/14/21 10/14/21 10/14/21 10/14/21 07:36 08:00 09:00 09:10 Temp 36.2 Pulse 124 Resp 14 B/P (MAP) 137/106 Pulse Ox 95 O2 Delivery Room Air I&O l Intake and Output 10/14/21 00:00 Intake Total 1325 ml Balance 1325 ml Intake Oral 1200 ml IV Total 125 ml # Voids 8 # Bowel Movements 2 Daily Weight Change No General: Alert, Oriented X3, Cooperative HEENT: Atraumatic, PERRLA Neck: Supple, No JVD, No Thyromegaly Lungs: Clear to Auscultation, Normal Air Movement Heart: Regular Rate, Normal S1, Normal S2, No Murmurs Abdomen: Normal Bowel Sounds, Soft, No Tenderness, No Hepatosplenomegaly, No Masses Extremities: No Clubbing, No Cyanosis, No Edema, Normal Pulses, No Tenderness/Swelling Skin: No Rashes, No Breakdown, No Significant Lesion Neuro: Normal Gait, Normal Speech, Strength at 5/5 X4 Ext, Normal Tone, Sensation Intact Psych/Mental Status: Mental Status NL, Mood NL Results Lab Laboratory Tests 10/14/21 04:19 A/P-Cardiology Assessment/Plan Paroxysmal atrial fibrillation, Had history of ablation in the remote past, patient had a total of 3 ablation procedures last procedure was done in 2018, it was an extensive ablation done at that time. Stable had on and off atrial fibrillation and she was seen by Dr. Ferguson, he had adjusted her pacemaker setting for better detection of the atrial fibrillation I recommended titrating the beta-lorna dose. Underwent LENORE with cardioversion in December 05, 2020 and still in sinus rhythm. C/o occasional episode of palpitations. Pacemaker sensitivity was adjusted by Dr. Ferguson. Patient was started on Multaq, reporting that he is not feeling well and unable to tolerate the medication, having nausea, hypotension, fatigue, I instructed her to stop the medication. She is scheduled to see Dr. Sanon on September 18, 2019. For possible ablation. Patient returned to the hospital with atrial flutter and rapid ventricular response, she was kept overnight on Cardizem drip, still borderline tachycardic. Underwent electrical cardioversion on October 14, 2021, started on amiodarone bolus and a drip. We will continue monitoring Sinus node dysfunction, history of [employer] dual-chamber pacemaker. Had it implanted in [place], continue to monitor at this time Generalized fatigue and loss of energy. Patient requested to stop Toprol which was done on the last visit. Chest pain, nonspecific etiology, patient was having recurrent chest pain underwent cardiac catheterization on 12/04/2020 showing normal coronaries with normal left ventricular size and function Increasing palpitation, having fluttering sensation in her chest, fatigue, episode of hypotension. Reporting that her blood pressure was in the 90s earlier. Still having palpitations and fatigue LENORE done on December 04, 2020 showing normal left ventricular size, left atrium is mildly dilated, no clot or thrombus, mild mitral regurgitation History of hiatal hernia, had repair surgery done at approx 2 months ago. 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 Scheduled to undergo EGD with bx with Dr. Valles next week Generalized fatigue and loss of energy. Hypothyroidism, followed and managed by primary care physician COPD, maintained on bronchodilator. Followed and managed by primary care physician Status post Covid 19 infection in June 2020, still complaining of some dyspnea and fatigue since that infection ERIKA DE LA ROSA MD Oct 14, 2021 09:33
--- NOTE | 2021-10-14 09:51 | Anesthesia-General Post-Op ---
MAC Patient Condition Mental Status/LOC: Same as Preop Cardiovascular: Satisfactory Nausea/Vomiting: Absent Respiratory: Satisfactory Pain: Controlled Complications: Absent Post Op Complications Complications None Follow Up Care/Instructions Patient Instructions None needed. Anesthesiology Discharge Order Discharge Order Patient is doing well, no complaints, stable vital signs, no apparent adverse anesthesia problems. No complications reported per nursing. OSCAR DELONG CRNA Oct 14, 2021 09:51
--- NOTE | 2021-10-14 10:14 | Tele-ICU Progress Note ---
Subjective Date Seen by a Provider: Oct 14, 2021 Time Seen by a Provider: 10:14 Subjective/Events-last exam (Tele-ICU Physician , Progress Note ) Available chart/ vitals / labs / Images reviewed Video assessment done using teleICU camera, rest of exam as per RN Discussed with RN , EXAM PER RN Events overnight : Afebrile FiO2 - I/O = Drips: Pressors: , hemodynamically stable Consultants: madan Hospital course: (10/13) 56f admitted for A-fib/RVR 10/14 -- s/p cardioversion 10/14 - in [facility] A/P AFib with RVR - s/p cardioversion 10/14 - in [facility] now - IV Cardizem OFF - AC with Xarelto Lines : (Central Line Necessity Reviewed) Garner: OG: Nutrition: Analgesia: Anxiety/ delirium VTE Prophylaxis: xarelto Stress Ulcer Prophylaxis: ppi Plans in collaboration with bedside consultants and IM MDs. Discussed with RN to reach out if any questions or concerns A total of 15 minutes of critical care time was devoted to this patient today, required to treat and/or prevent further deterioration of critical care condition ( as above) . Sepsis Event Evaluation Height, Weight, BMI Height: '" Weight: lbs. oz. kg; 37.21 BMI Method: Exam Exam Patient acknowledged, consented, and participated in this virtual visit which was conducted using real time audio/video Vital Signs Date Time Temp Pulse Resp B/P (MAP) Pulse Ox O2 Delivery O2 Flow Rate FiO2 10/14/21 10:00 61 110/73 95 Room Air 10/14/21 09:31 60 10/14/21 09:21 80 10/14/21 09:10 124 10/14/21 09:00 113 137/106 95 Room Air 10/14/21 08:00 113 14 121/87 93 Room Air 10/14/21 07:49 92 Room Air 10/14/21 07:36 36.2 10/14/21 07:00 105 16 129/103 91 Room Air 10/14/21 07:00 108 10/14/21 06:00 85 11 124/96 93 Room Air 10/14/21 05:15 111 38 120/80 94 Room Air 10/14/21 04:15 36.4 Room Air 10/14/21 04:00 86 25 121/91 91 Room Air 10/14/21 04:00 92 Room Air 10/14/21 03:00 86 15 135/100 90 Room Air 10/14/21 02:00 85 12 119/90 93 Room Air 10/14/21 01:00 98 10/14/21 01:00 98 125/84 93 Room Air 10/14/21 00:00 95 Room Air 10/14/21 00:00 120 29 124/99 93 Room Air 10/13/21 23:55 36.1 Room Air 10/13/21 23:00 107 28 125/85 89 Room Air 10/13/21 22:00 89 14 115/77 90 Room Air 10/13/21 21:00 101 20 121/82 93 Room Air 10/13/21 20:00 75 18 132/80 94 Room Air 10/13/21 19:55 96 Room Air 10/13/21 19:00 95 10/13/21 19:00 36.5 86 18 118/79 97 Room Air 10/13/21 18:00 103 19 129/84 94 Room Air 10/13/21 17:00 95 28 119/71 94 Room Air 10/13/21 16:23 36.2 10/13/21 16:00 96 18 131/79 95 Room Air 10/13/21 16:00 94 Room Air 10/13/21 15:00 118 17 130/87 95 Room Air 10/13/21 14:00 95 19 115/90 92 Room Air 10/13/21 13:00 87 18 128/94 94 Room Air 10/13/21 12:58 99 10/13/21 12:09 36.4 10/13/21 12:00 92 26 112/72 95 Room Air 10/13/21 12:00 94 Room Air 10/13/21 11:00 83 15 117/60 95 Room Air I & O 10/14/21 06:59 Intake Total 2425 ml Balance 2425 ml Height & Weight Height: '" Weight: lbs. oz. kg; 37.21 BMI Method: General Appearance: No Apparent Distress, Chronically ill, Obese HEENT: PERRL/EOMI, Pharynx Normal Neck: Normal Inspection, Supple Respiratory: Lungs Clear, Normal Breath Sounds, No Respiratory Distress Cardiovascular: Irregularly Irregular, Tachycardia Capillary Refill: Less Than 3 Seconds Extremity: Normal Inspection, Pedal Edema Neurologic/Psychiatric: Alert, Normal Mood/Affect Skin: Normal Color, Warm/Dry Results Lab Laboratory Tests 10/13/21 05:30 10/14/21 04:19 Assessment/Plan Assessment/Plan ` ALLIE GUZMAN MD Oct 14, 2021 10:14
[2021-10-14] MEDS: KETOROLAC 15 MG/ML VIAL IVP PRN ×2 (10:41→21:33)
[2021-10-14] MEDS ORDERED: ONDA4TAB11 PO (11:02)
[2021-10-14] MEDS ORDERED: FLUT100B IH (11:02)
[2021-10-14] MEDS ORDERED: RT-ALBUINH INH (11:02)
[2021-10-14] MEDS ORDERED: CHOLECALCIFEROL PO (11:02)
[2021-10-14] MEDS ORDERED: RIVA20TA PO (11:02)
[2021-10-14] MEDS ORDERED: ZINC PO (11:02)
[2021-10-14] MEDS ORDERED: ASCORBIC ACID PO (11:02)
[2021-10-14] MEDS ORDERED: DEXL60CA6 PO (11:02)
[2021-10-14] MEDS ORDERED: LEVO5TAB12 PO (11:02)
[2021-10-14] MEDS ORDERED: SUMAtriptan 50 MG (IMITREX) TAB PO NR (11:16)
--- NOTE | 2021-10-14 11:17 | Progress Note - Hospitalist ---
Subjective HPI/CC On Admission Date Seen by Provider: Oct 14, 2021 Time Seen by Provider: 11:13 Maria Fernanda Rondon is a 55-year-old female with past medical history of hypertension, hyperlipidemia, atrial fibrillation on Xarelto, sick sinus syndrome status post pacemaker, hiatal hernia status post surgical repair, who presented with chest pain. She also reports lightheadedness and dizziness. She also noticed that her heart rate was very high. She denies shortness of breath. She has not been on any rate controlling medications for her AFib. She says she is scheduled to undergo an ablation soon. Subjective/Events-last exam Pt reports having a headache. Had one yesterday and has history of migraines. Imitrex helped with pain yesterday but currently NPO. No other complaints. Objective Exam Vital Signs Vital Signs Date Time Temp Pulse Resp B/P (MAP) Pulse Ox O2 Delivery O2 Flow Rate FiO2 10/14/21 12:00 63 15 112/77 92 Room Air 10/14/21 07:36 36.2 Capillary Refill : Less Than 3 Seconds General Appearance: No Apparent Distress, WD/WN Respiratory: Lungs Clear, No Respiratory Distress Cardiovascular: No Murmur, Irregularly Irregular Gastrointestinal: Normal Bowel Sounds, Soft Neurologic/Psychiatric: Alert, Oriented x3 Results/Procedures Lab Laboratory Tests 10/14/21 04:19 Patient resulted labs reviewed. Imaging: Reviewed Imaging Report Assessment/Plan Assessment and Plan Assess & Plan/Chief Complaint Chest pain AFib with RVR Cardiology following Troponins remain negative Started on IV Cardizem- may need cardioversion per Dr Whittington Continue Xarelto MIgraine Refusing Tylenol and Ibuprofen Tramadol added but no relief- will try toradol while NPO Imitrex again if able to PO later HTN HLD Hypothyroidism Anxiety Continue home meds Critical Care Critically Ill Patient Clinical Quality Measures AMI/AHF: ASA po Prior to arrival: No ELIES DUDLEY MD Oct 14, 2021 11:17
[2021-10-14] MEDS: FLUTICASONE 100 MCG 14's (ARNUITY) IH SCH (12:12)
[2021-10-14] MEDS: RIVAROXABAN 20 MG TABLET (XARELTO) PO SCH (17:52)
[2021-10-14] MEDS: DIAZEPAM 5 MG (VALIUM) TABLET PO PRN (20:08)
[2021-10-15] MEDS: LACTATED RINGERS 1,000 ML IV SCH ×3 (02:19→18:50)
[2021-10-15 05:11] LABS: BASOPHILS % (AUTO) 0 % (0-10); EOSINOPHILS # (AUTO) 0.1 10^3/uL (0.0-0.3); EOSINOPHILS % (AUTO) 2 % (0-10); HEMATOCRIT 36 % (35-52); HEMOGLOBIN 11.7 g/dL (11.5-16.0); LYMPHOCYTES # (AUTO) 2.4 10^3/uL (1.0-4.0); LYMPHOCYTES % (AUTO) 31 % (12-44); MEAN CORPUSCULAR HEMOGLOBIN 29 pg (25-34); MEAN CORPUSCULAR HGB CONC 33 g/dL (32-36); MEAN CORPUSCULAR VOLUME 89 fL (80-99); MEAN PLATELET VOLUME 10.7 fL (9.0-12.2); MONOCYTES # (AUTO) 0.6 10^3/uL (0.0-1.0); MONOCYTES % (AUTO) 8 % (0-12); NEUTROPHILS # (AUTO) 4.4 10^3/uL (1.8-7.8); NEUTROPHILS % (AUTO) 58 % (42-75); PLATELET COUNT 211 10^3/uL (130-400); WHITE BLOOD COUNT 7.6 10^3/uL (4.3-11.0)
[2021-10-15 05:25] LABS: ALBUMIN 3.4 GM/DL (3.2-4.5); POTASSIUM 3.9 MMOL/L (3.6-5.0)
[2021-10-15 05:26] LABS: CALCIUM 8.9 MG/DL (8.5-10.1)
[2021-10-15 05:27] LABS: TOTAL PROTEIN 5.7 GM/DL (6.4-8.2)
[2021-10-15 05:29] LABS: BILIRUBIN,TOTAL 0.4 MG/DL (0.1-1.0)
[2021-10-15 05:30] LABS: PHOSPHORUS 4.2 MG/DL (2.3-4.7)
[2021-10-15 05:31] LABS: CREATININE SERUM 0.89 MG/DL (0.60-1.30)
[2021-10-15 05:34] LABS: MAGNESIUM 1.8 MG/DL (1.6-2.4)
[2021-10-15] MEDS: diphenhydrAMINE 25 MG TAB (BENADRYL) PO PRN ×2 (06:29→23:57)
[2021-10-15] MEDS: LEVOTHYROXINE 112 MCG (LEVOTHROID) TAB PO SCH (06:30)
[2021-10-15] MEDS: POTASSIUM CL 10MEQ/50ML IVPB 50 ML IV SCH (06:33)
[2021-10-15] MEDS: MAGNESIUM 1 GM/100 ML IVPB 100 ML IV SCH (06:33)
[2021-10-15] MEDS: SUCRALFATE 1 GM (CARAFATE) TAB PO SCH ×4 (06:33→21:16)
[2021-10-15] MEDS: KCL 20 MEQ TAB (K-DUR) PO SCH (06:33)
[2021-10-15 08:01] VITALS: BP 118/80
[2021-10-15] MEDS: FLUTICASONE 100 MCG 14's (ARNUITY) IH SCH (08:15)
[2021-10-15] MEDS ORDERED: FUROSEMIDE 40 MG/4 ML INJ (LASIX) IVP ONE (08:15)
[2021-10-15] MEDS: UMECLIDINIUM BROMIDE (INCRUSE ELLIPTA) 7'S IH SCH (08:15)
[2021-10-15] MEDS: RT-ALBUTEROL/IPRATROPIUM 3 ML (DUONEB) VIAL INH PRN ×2 (08:15→16:21)
[2021-10-15] MEDS: FUROSEMIDE 20 MG (LASIX) TAB PO SCH (08:20)
[2021-10-15] MEDS: dilTIAZem120 MG (CARDIZEM CD) CAP PO SCH (08:20)
[2021-10-15] MEDS: KETOROLAC 15 MG/ML VIAL IVP PRN ×3 (08:20→21:13)
[2021-10-15] MEDS: cloNIDine 0.1 MG (CATAPRES) TAB PO SCH ×2 (08:20→21:17)
[2021-10-15] MEDS: PANTOPRAZOLE 40 MG (PROTONIX) TAB PO SCH (08:20)
--- NOTE | 2021-10-15 08:24 | Diagnostic Imaging Report ---
INDICATION: Dyspnea Single AP view of the chest is obtained with comparison made to study of 10/13/2021. There is suboptimal inspiration with mild perihilar atelectasis. Overall heart size and pulmonary vascularity are within normal limits. There is no pneumothorax or consolidation. IMPRESSION: Hypoventilation with mild perihilar atelectasis. Dictated by: Dictated on workstation # [id number]
--- NOTE | 2021-10-15 08:56 | Cardiology Progress Note ---
Subjective Date Seen by Provider: Oct 15, 2021 Time Seen by Provider: 08:46 Subjective/Events-last exam Patient was seen at bedside, complaining of shortness of breath, cough. Review of Systems General: No Chills, No Night Sweats; Fatigue; No Malaise, No Appetite, No Other HEENT: No Head Aches, No Visual Changes, No Eye Pain, No Ear Pain, No Dysphasia, No Sinus Congestion, No Post Nasal Drip, No Sore Throat, No Other Pulmonary: Dyspnea, Cough; No Pleuritic Chest Pain, No Other Cardiovascular: No: Chest Pain, Palpitations, Orthopnea, Paroxysmal Noc. Dyspnea, Edema, Lt Headedness, Other Objective-Cardiology Exam Last Set of Vital Signs Vital Signs 10/15/21 10/15/21 10/15/21 07:58 08:00 08:01 Temp 36.8 Pulse 61 Resp 17 B/P (MAP) 156/114 Pulse Ox 95 O2 Delivery Room Air FiO2 21 I&O Intake and Output 10/15/21 00:00 Intake Total 3073 ml Balance 3073 ml Intake Oral 970 ml IV Total 2103 ml # Voids 9 General: Alert, Oriented X3, Cooperative HEENT: Atraumatic, PERRLA Neck: Supple, No JVD, No Thyromegaly Lungs: Normal Air Movement, Other (Bilateral rhonchi) Heart: Regular Rate, Normal S1, Normal S2, No Murmurs Abdomen: Normal Bowel Sounds, Soft, No Tenderness, No Hepatosplenomegaly, No Masses Extremities: No Clubbing, No Cyanosis, No Edema, Normal Pulses, No Tenderness/Swelling Skin: No Rashes, No Breakdown, No Significant Lesion Neuro: Normal Gait, Normal Speech, Strength at 5/5 X4 Ext, Normal Tone, Sensation Intact Psych/Mental Status: Mental Status NL, Mood NL Results Lab Laboratory Tests 10/15/21 04:37 A/P-Cardiology Assessment/Plan Paroxysmal atrial fibrillation, Had history of ablation in the remote past, patient had a total of 3 ablation procedures last procedure was done in 2019, it was an extensive ablation done at that time. Stable had on and off atrial fibrillation and she was seen by Dr. Ferguson, he had adjusted her pacemaker setting for better detection of the atrial fibrillation I recommended titrating the beta-lorna dose. Underwent LENORE with cardioversion in December 05, 2020 and still in sinus rhythm. C/o occasional episode of palpitations. Pacemaker sensitivity was adjusted by Dr. Ferguson. Patient was started on Multaq, reporting that he is not feeling well and unable to tolerate the medication, having nausea, hypotension, fatigue, I instructed her to stop the medication. She is scheduled to see Dr. Sanon on September 18, 2019. For possible ablation. Patient returned to the hospital with atrial flutter and rapid ventricular response, she was kept overnight on Cardizem drip, still borderline tachycardic. Underwent electrical cardioversion on October 14, 2021, Couldn't tolerate Amio drip due to hypotension, I will try oral Amiodarone Dyspnea, Cough, Cxr showed mild atelectasis, managed by primary care physician Sinus node dysfunction, history of [employer] dual-chamber pacemaker. Had it implanted in [place], continue to monitor at this time Generalized fatigue and loss of energy. Patient requested to stop Toprol which was done on the last visit. Chest pain, nonspecific etiology, patient was having recurrent chest pain underwent cardiac catheterization on 12/04/2020 showing normal coronaries with normal left ventricular size and function Increasing palpitation, having fluttering sensation in her chest, fatigue, episode of hypotension. Reporting that her blood pressure was in the 90s earlier. Still having palpitations and fatigue LENORE done on December 04, 2020 showing normal left ventricular size, left atrium is mildly dilated, no clot or thrombus, mild mitral regurgitation History of hiatal hernia, had repair surgery done at approx 2 months ago. 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 Scheduled to undergo EGD with bx with Dr. Valles next week Generalized fatigue and loss of energy. Hypothyroidism, followed and managed by primary care physician COPD, maintained on bronchodilator. Followed and managed by primary care physician Status post Covid 19 infection in June 2020, still complaining of some dyspnea and fatigue since that infection ERIKA DE LA ROSA MD Oct 15, 2021 08:56
--- NOTE | 2021-10-15 11:30 | Tele-ICU Progress Note ---
Subjective Date Seen by a Provider: Oct 15, 2021 Time Seen by a Provider: 11:30 Subjective/Events-last exam Tele-ICU Physician , Progress Note ) Available chart/ vitals / labs / Images reviewed Video assessment done using teleICU camera, rest of exam as per RN Discussed with RN , EXAM PER RN Events overnight : Afebrile FiO2 - ra I/O = uo not recorded Drips: Pressors: , hemodynamically stable Consultants: madan Hospital course: (10/13) 56f admitted for A-fib/RVR 10/14 -- s/p cardioversion 10/14 - in [facility] A/P AFib with RVR - s/p cardioversion 10/14 - in [facility] now - IV Cardizem OFF -> PO , amio gtt OFF - AC with Xarelto RKAFT - with h/o migrane - on toradol / imitrax Lines : (Central Line Necessity Reviewed) Garner: OG: Nutrition: Analgesia: Anxiety/ delirium VTE Prophylaxis: xarelto Stress Ulcer Prophylaxis: ppi Plans in collaboration with bedside consultants and IM MDs. Discussed with RN to reach out if any questions or concerns A total of 15 minutes of critical care time was devoted to this patient today, required to treat and/or prevent further deterioration of critical care condition ( as above) . Sepsis Event Evaluation Height, Weight, BMI Height: '" Weight: lbs. oz. kg; 37.21 BMI Method: Exam Exam Patient acknowledged, consented, and participated in this virtual visit which was conducted using real time audio/video Vital Signs Date Time Temp Pulse Resp B/P (MAP) Pulse Ox O2 Delivery O2 Flow Rate FiO2 10/15/21 10:30 74 30 116/68 86 10/15/21 10:12 60 11 117/80 95 10/15/21 10:00 61 10 116/68 93 Room Air 10/15/21 09:00 66 14 122/74 96 Room Air 10/15/21 08:12 95 Room Air 10/15/21 08:01 61 95 21 10/15/21 08:00 Room Air 10/15/21 08:00 70 17 156/114 98 10/15/21 08:00 36.8 10/15/21 07:58 65 11 124/95 94 Room Air 10/15/21 07:00 60 10/15/21 07:00 64 19 111/63 92 Room Air 10/15/21 06:00 61 13 118/80 95 Room Air 10/15/21 05:00 60 12 120/76 92 Room Air 10/15/21 04:00 61 13 127/82 92 Room Air 10/15/21 04:00 Room Air 10/15/21 04:00 36.2 10/15/21 03:00 60 11 105/72 92 Room Air 10/15/21 02:00 68 10 93/58 92 Room Air 10/15/21 01:00 64 10/15/21 01:00 64 11 97/67 90 Room Air 10/15/21 00:00 36.0 10/15/21 00:00 Room Air 10/15/21 00:00 61 15 92/61 90 Room Air 10/14/21 23:00 60 16 103/54 90 Room Air 10/14/21 22:00 62 30 103/63 92 Room Air 10/14/21 21:00 61 14 91/53 92 Room Air 10/14/21 20:10 75 117/72 92 Room Air 10/14/21 20:00 Room Air 10/14/21 19:29 36.3 10/14/21 19:00 74 17 84/53 91 Room Air 10/14/21 19:00 74 10/14/21 18:00 75 16 100/76 90 Room Air 10/14/21 17:00 64 15 88/60 91 Room Air 10/14/21 16:00 95 Room Air 10/14/21 16:00 60 11 86/69 90 Room Air 10/14/21 15:45 36.2 10/14/21 15:00 60 17 84/57 90 Room Air 10/14/21 14:00 60 12 82/57 91 Room Air 10/14/21 13:00 73 17 109/77 97 Room Air 10/14/21 13:00 70 10/14/21 12:00 63 15 112/77 92 Room Air 10/14/21 12:00 95 Room Air 10/14/21 12:00 36.0 I & O 10/15/21 07:00 Intake Total 3173 ml Balance 3173 ml Height & Weight Height: '" Weight: lbs. oz. kg; 37.21 BMI Method: General Appearance: No Apparent Distress, WD/WN HEENT: PERRL/EOMI, Pharynx Normal Neck: Normal Inspection, Supple Respiratory: Lungs Clear, No Respiratory Distress Cardiovascular: No Murmur, Irregularly Irregular Capillary Refill: Less Than 3 Seconds Extremity: Normal Inspection, Pedal Edema Neurologic/Psychiatric: Alert, Oriented x3 Skin: Normal Color, Warm/Dry Results Lab Laboratory Tests 10/14/21 04:19 10/15/21 04:37 Assessment/Plan Assessment/Plan ` ALLIE GUZMAN MD Oct 15, 2021 11:30
[2021-10-15] MEDS ORDERED: SUMAtriptan 50 MG (IMITREX) TAB PO ONE (12:30)
--- NOTE | 2021-10-15 14:09 | Progress Note - Hospitalist ---
Subjective HPI/CC On Admission Date Seen by Provider: Oct 15, 2021 Time Seen by Provider: 08:00 Maria Fernanda Rondon is a 55-year-old female with past medical history of hypertension, hyperlipidemia, atrial fibrillation on Xarelto, sick sinus syndrome status post pacemaker, hiatal hernia status post surgical repair, who presented with chest pain. She also reports lightheadedness and dizziness. She also noticed that her heart rate was very high. She denies shortness of breath. She has not been on any rate controlling medications for her AFib. She says she is scheduled to undergo an ablation soon. Subjective/Events-last exam Pt reports doing ok but has a cough and some chest tightness. EKG being done while I was at bedside. Objective Exam Vital Signs Vital Signs Date Time Temp Pulse Resp B/P (MAP) Pulse Ox O2 Delivery O2 Flow Rate FiO2 10/15/21 14:00 60 14 122/65 94 Room Air 10/15/21 08:01 21 10/15/21 08:00 36.8 Capillary Refill : Less Than 3 Seconds General Appearance: No Apparent Distress, WD/WN, Obese Respiratory: No Accessory Muscle Use, No Respiratory Distress, Decreased Breath Sounds; No Wheezing Cardiovascular: Regular Rate, Rhythm, No Murmur Neurologic/Psychiatric: Alert, Oriented x3 Results/Procedures Lab Laboratory Tests 10/15/21 04:37 Patient resulted labs reviewed. Imaging: Reviewed Imaging Report Assessment/Plan Assessment and Plan Assess & Plan/Chief Complaint Chest pain AFib with RVR Cardiology following Troponins remain negative Cardioverted yesterday by Dr Ruvalcaba Continue Xarelto Cough- likely COPD Has not had home inhaler (ordered yesterday and she declined) CXR ordered MAT ordered and discussed with RT who will do breathing treatment now Will add procal as well Migraine Imitrex prn HTN HLD Hypothyroidism Anxiety Continue home meds Critical Care Critically Ill Patient Clinical Quality Measures AMI/AHF: ASA po Prior to arrival: ELISE Capellan MD Oct 15, 2021 14:09
[2021-10-15] MEDS: RIVAROXABAN 20 MG TABLET (XARELTO) PO SCH (17:25)
[2021-10-15] MEDS ORDERED: DOCUSATE SODIUM 100 MG (COLACE) CAP PO ONE ×2 (21:00→21:15)
[2021-10-15] MEDS: RT-ALBUTEROL/IPRATROPIUM 3 ML (DUONEB) VIAL INH SCH (21:02)
[2021-10-15] MEDS: SUMAtriptan 50 MG (IMITREX) TAB PO PRN (21:13)
[2021-10-15] MEDS: AMIODARONE 200 MG (CORDARONE) TAB PO SCH (21:13)
[2021-10-15] MEDS: DIAZEPAM 5 MG (VALIUM) TABLET PO PRN (21:13)
[2021-10-16 04:45] LABS: BASOPHILS % (AUTO) 0 % (0-10); EOSINOPHILS # (AUTO) 0.1 10^3/uL (0.0-0.3); EOSINOPHILS % (AUTO) 2 % (0-10); HEMATOCRIT 35 % (35-52); HEMOGLOBIN 11.6 g/dL (11.5-16.0); LYMPHOCYTES # (AUTO) 2.1 10^3/uL (1.0-4.0); LYMPHOCYTES % (AUTO) 35 % (12-44); MEAN CORPUSCULAR HEMOGLOBIN 29 pg (25-34); MEAN CORPUSCULAR HGB CONC 33 g/dL (32-36); MEAN CORPUSCULAR VOLUME 87 fL (80-99); MONOCYTES # (AUTO) 0.4 10^3/uL (0.0-1.0); MONOCYTES % (AUTO) 7 % (0-12); NEUTROPHILS # (AUTO) 3.4 10^3/uL (1.8-7.8); NEUTROPHILS % (AUTO) 55 % (42-75); PLATELET COUNT 200 10^3/uL (130-400); WHITE BLOOD COUNT 6.1 10^3/uL (4.3-11.0)
[2021-10-16 05:01] LABS: ALBUMIN 3.6 GM/DL (3.2-4.5)
[2021-10-16 05:02] LABS: POTASSIUM 3.8 MMOL/L (3.6-5.0)
[2021-10-16 05:03] LABS: CALCIUM 8.8 MG/DL (8.5-10.1)
[2021-10-16 05:06] LABS: BILIRUBIN,TOTAL 0.4 MG/DL (0.1-1.0)
[2021-10-16 05:07] LABS: PHOSPHORUS 4.7 MG/DL (2.3-4.7)
[2021-10-16 05:08] LABS: CREATININE SERUM 0.82 MG/DL (0.60-1.30)
[2021-10-16 05:11] LABS: MAGNESIUM 1.8 MG/DL (1.6-2.4)
[2021-10-16] MEDS: KCL 20 MEQ TAB (K-DUR) PO SCH (05:18)
[2021-10-16] MEDS: MAGNESIUM 1 GM/100 ML IVPB 100 ML IV SCH (05:18)
[2021-10-16] MEDS: POTASSIUM CL 10MEQ/50ML IVPB 50 ML IV SCH (05:18)
[2021-10-16] MEDS: SUCRALFATE 1 GM (CARAFATE) TAB PO SCH ×2 (05:18→11:19)
[2021-10-16] MEDS: LEVOTHYROXINE 112 MCG (LEVOTHROID) TAB PO SCH (06:07)
--- NOTE | 2021-10-16 08:50 | Discharge Summary ---
Diagnosis/Chief Complaint Date of Admission Oct 13, 2021 at 06:15 Date of Discharge Admission Diagnosis Chest pain Primary Care Haroon Severino MD Discharge Diagnosis (1) Atrial fibrillation with rapid ventricular response Status: Acute (2) Chest pain Status: Acute Discharge Summary Discharge Physical Exam Allergies: Coded Allergies: Latex, Natural Rubber (Unverified Allergy, Intermediate, Shortness of Breath, 09/27/20) Vitals & I&Os Vital Signs Date Time Temp Pulse Resp B/P (MAP) Pulse Ox O2 Delivery O2 Flow Rate FiO2 10/16/21 12:53 62 10/16/21 12:00 12 136/70 93 Room Air 10/16/21 08:00 36.3 10/15/21 08:01 21 General Appearance: No Apparent Distress, Chronically ill, Obese Cardiovascular: Regular Rate, Rhythm, No Murmur Gastrointestinal: Normal Bowel Sounds, Non Tender, Soft Neurologic/Psychiatric: Alert, Oriented x3 Hospital Course Pt was admitted to the hospital due to atrial flutter with rapid ventricular rate. She was seen by cardiology and was placed on a cardizem gtt and ultimately underwent cardioversion with conversion to sinus rhythm. Cardiology started her on amiodarone and oral cardizem and she did well with these. She did have some persistent chest pressure and cough likely due to COPD. She was restarted on her inhalers and did well. She is to follow up with Dr Sanon at [facility] for planned ablation and she is to follow up with Dr Nunn her PCP to follow up this hospital stay. I did call and updated his office regarding this hospitalization and left a message with the nurse. Labs (last 24 hrs) Laboratory Tests 10/16/21 04:22: White Blood Count 6.1, Red Blood Count 3.97, Hemoglobin 11.6, Hematocrit 35, Mean Corpuscular Volume 87, Mean Corpuscular Hemoglobin 29, Mean Corpuscular Hemoglobin Concent 33, Red Cell Distribution Width 12.9, Platelet Count 200, Mean Platelet Volume 11.0, Immature Granulocyte % (Auto) 0, Neutrophils (%) (Auto) 55, Lymphocytes (%) (Auto) 35, Monocytes (%) (Auto) 7, Eosinophils (%) (Auto) 2, Basophils (%) (Auto) 0, Neutrophils # (Auto) 3.4, Lymphocytes # (Auto) 2.1, Monocytes # (Auto) 0.4, Eosinophils # (Auto) 0.1, Basophils # (Auto) 0.0, Immature Granulocyte # (Auto) 0.0, Sodium Level 141, Potassium Level 3.8, Chloride Level 104, Carbon Dioxide Level 24, Anion Gap 13, Blood Urea Nitrogen 11, Creatinine 0.82, Estimat Glomerular Filtration Rate 85, BUN/Creatinine Ratio 13, Glucose Level 160H, Calcium Level 8.8, Corrected Calcium 9.1, Phosphorus Level 4.7, Magnesium Level 1.8, Total Bilirubin 0.4, Aspartate Amino Transf (AST/SGOT) 21, Alanine Aminotransferase (ALT/SGPT) 37, Alkaline Phosphatase 80, Total Protein 6.0L, Albumin 3.6 Microbiology 10/13/21 MRSA Screen - Final, Complete MRSA not isolated Patient resulted labs reviewed. Pending Labs Imaging: Reviewed Imaging Report Discussion & Recommendations Discharge Planning: >30 minutes discharge planning Discharge Home Medications: Active Scripts Active Diltiazem 24Hr ER (Diltiazem HCl) 120 Mg Cap.er.24h 120 Mg PO DAILY Amiodarone HCl 200 Mg Tablet 200 Mg PO BID Imitrex (Sumatriptan Succinate) 50 Mg Tab 50 Mg PO DAILY PRN Albuterol Sulfate 1.25 Mg/3 Ml Vial.neb 3 Ml NEB Q8H PRN Reported [Vit C/D3/Zinc] 1 Ea PO DAILY Xarelto (Rivaroxaban) 20 Mg Tablet 20 Mg PO [address] (Dexlansoprazole) 60 Mg Cap.dr.bp 60 Mg PO 1700 Proventil Hfa (Albuterol Sulfate) 6.7 Gm Hfa.aer.ad 2 Puff INH Q6H PRN Arnuity Ellipta (Fluticasone Furoate) 100 Mcg Blst.w.dev 100 Mcg IH DAILY Ondansetron Odt (Ondansetron) 4 Mg Tab.rapdis 4 Mg PO Q6H PRN Levocetirizine Dihydrochloride 5 Mg Tablet 5 Mg PO HS Clonidine HCl 0.1 Mg Tablet 0.1 Mg PO BID PRN Metoclopramide HCl 10 Mg Tablet 10 Mg PO QIDACHS Fish Oil 1,200 mg Fish Oil (Fish Oil/Dha/Epa) 1 Each Capsule 1 Each PO DAILY Vitamin E (Vitamin E Mixed) 100 Unit Tablet 100 Unit PO DAILY Furosemide 20 Mg Tablet 20 Mg PO DAILY Levothyroxine Sodium 112 Mcg Tablet 112 Mcg PO DAILY Diazepam 5 Mg Tablet 5 Mg PO BID PRN Instructions to patient/family Please see electronic discharge instructions given to patient. Clinical Quality Measures AMI/AHF: ASA po Prior to arrival: No Copy Copies To 1: Dr Jeremías Sanon; JIMY NUNN MD, KATELYN M MD Oct 16, 2021 08:50
[2021-10-16] MEDS ORDERED: SMTR50T PO (09:04)
[2021-10-16] MEDS ORDERED: ALBU1.25 NEB (09:04)
--- NOTE | 2021-10-16 09:16 | Discharge Inst-Simple/Standard ---
Discharge Inst-Standard Patient Instructions/Follow Up Plan of Care/Instructions/FU: Please continue to take your medications as written. Please follow up with your primary care doctor and with Dr Ruvalcaba to follow up this hospital stay. Activity as Tolerated: Yes Discharge Diet: No Restrictions Return to The Hospital For: Chest pain, shortness of breath, fever, weakness, confusion, if you feel you are getting worse. ELISE DUDLEY MD Oct 16, 2021 09:16
[2021-10-16] MEDS: FUROSEMIDE 20 MG (LASIX) TAB PO SCH (09:17)
[2021-10-16] MEDS: PANTOPRAZOLE 40 MG (PROTONIX) TAB PO SCH (09:17)
[2021-10-16] MEDS: dilTIAZem120 MG (CARDIZEM CD) CAP PO SCH (09:17)
[2021-10-16] MEDS: cloNIDine 0.1 MG (CATAPRES) TAB PO SCH (09:17)
[2021-10-16] MEDS: AMIODARONE 200 MG (CORDARONE) TAB PO SCH (09:17)
[2021-10-16] MEDS: RT-ALBUTEROL/IPRATROPIUM 3 ML (DUONEB) VIAL INH SCH (09:39)
[2021-10-16] MEDS: FLUTICASONE 100 MCG 14's (ARNUITY) IH SCH (09:39)
[2021-10-16] MEDS: UMECLIDINIUM BROMIDE (INCRUSE ELLIPTA) 7'S IH SCH (09:39)
--- NOTE | 2021-10-16 09:57 | Cardiology Progress Note ---
Subjective Date Seen by Provider: Oct 16, 2021 Time Seen by Provider: 09:51 Subjective/Events-last exam Patient is sitting up in bed, reports chest wall pain with coughing. Review of Systems General: No Chills, No Night Sweats; Fatigue, Malaise; No Appetite, No Other HEENT: No Head Aches, No Visual Changes, No Eye Pain, No Ear Pain, No Dysphasia, No Sinus Congestion, No Post Nasal Drip, No Sore Throat, No Other Pulmonary: Dyspnea, Cough; No Pleuritic Chest Pain, No Other Cardiovascular: No: Chest Pain, Palpitations, Orthopnea, Paroxysmal Noc. Dyspnea, Edema, Lt Headedness, Other Objective-Cardiology Exam Last Set of Vital Signs Vital Signs 10/15/21 08:01 FiO2 21 I&O Intake and Output 10/16/21 00:00 Intake Total 2950 ml Output Total 2450 ml Balance 500 ml Intake Oral 1150 ml IV Total 1800 ml Output Urine Total 2450 ml # Voids 2 General: Alert, Oriented X3, Cooperative HEENT: Atraumatic, PERRLA Neck: Supple, No JVD, No Thyromegaly Lungs: Normal Air Movement, Other (Bilateral rhonchi) Heart: Regular Rate, Normal S1, Normal S2, No Murmurs Abdomen: Normal Bowel Sounds, Soft, No Tenderness, No Hepatosplenomegaly, No Masses Extremities: No Clubbing, No Cyanosis, No Edema, Normal Pulses, No Tenderness/Swelling Skin: No Rashes, No Breakdown, No Significant Lesion Neuro: Normal Gait, Normal Speech, Strength at 5/5 X4 Ext, Normal Tone, Sensation Intact Psych/Mental Status: Mental Status NL, Mood NL Results Lab Laboratory Tests 10/16/21 04:22 A/P-Cardiology Admission Diagnosis PAF Chest pain Fatigue GERD Assessment/Plan Paroxysmal atrial fibrillation, Had history of ablation in the remote past, patient had a total of 3 ablation procedures last procedure was done in 2019, it was an extensive ablation done at that time. Stable had on and off atrial fibrillation and she was seen by Dr. Ferguson, he had adjusted her pacemaker setting for better detection of the atrial fibrillation I recommended titrating the beta-lorna dose. Underwent LENORE with cardioversion in December 05, 2020 and still in sinus rhythm. C/o occasional episode of palpitations. Pacemaker sensitivity was adjusted by Dr. Ferguson. Patient was started on Multaq, reporting that he is not feeling well and unable to tolerate the medication, having nausea, hypotension, fatigue, I instructed her to stop the medication. She is scheduled to see Dr. Sanon on September 17, 2021 for possible ablation. Patient returned to the hospital with atrial flutter and rapid ventricular response. Underwent electrical cardioversion on October 14, 2021, Couldn't tolerate Amio drip due to hypotension. She was started on amiodarone orally on October 15, 2021 and tolerating it well. Continue to monitor Dyspnea, Cough, Cxr showed mild atelectasis, managed by primary care physician Sinus node dysfunction, history of [employer]tronic dual-chamber pacemaker. Had it implanted in [place], continue to monitor at this time Generalized fatigue and loss of energy. Patient requested to stop Toprol which was done on the last visit. Chest pain, nonspecific etiology, patient was having recurrent chest pain un derwent cardiac catheterization on 12/04/2020 showing normal coronaries with normal left ventricular size and function, chest pain most probably musculoskeletal in nature Increasing palpitation, having fluttering sensation in her chest, fatigue, episode of hypotension. LENORE done on December 04, 2020 showing normal left ventricular size, left atrium is mildly dilated, no clot or thrombus, mild mitral regurgitation History of hiatal hernia, had repair surgery done at [facility] 2 months ago. 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 Scheduled to undergo EGD with bx with Dr. Valles next week Generalized fatigue and loss of energy. Hypothyroidism, followed and managed by primary care physician COPD, maintained on bronchodilator. Followed and managed by primary care physician Status post Covid 19 infection in June 2020, still complaining of some dyspnea and fatigue since that infection YADI CRESPO Oct 16, 2021 09:57 ERIKA DE LA ROSA MD Oct 16, 2021 12:31
[2021-10-16] MEDS ORDERED: FUROSEMIDE 40 MG/4 ML INJ (LASIX) IVP NR (10:30)
[2021-10-16] MEDS: SUMAtriptan 50 MG (IMITREX) TAB PO PRN (10:30)
[2021-10-16] MEDS: ONDANSETRON 4 MG/2 ML (SDV) Z0FRAN IV PRN (12:01)
[2021-10-16] MEDS ORDERED: AMIO200T65 PO (12:36)
[2021-10-16] MEDS ORDERED: DILT-27 PO (12:36)
[2021-10-16 15:29] VITALS: BP 140/60
== END 2021-10-16 15:31 | disposition home or self-care, planned readmission (81) ==
LOC: EDUNIT# 04:39 → ER 04:40 → ICU 06:15
PROVIDERS: ADMIT Internal Medicine; ATTEND Internal Medicine
DX: I48.92 Unspecified atrial flutter (principal); I48.0 Paroxysmal atrial fibrillation; I49.5 Sick sinus syndrome; I95.9 Hypotension, unspecified; I10 Essential (primary) hypertension; R07.9 Chest pain, unspecified; E03.9 Hypothyroidism, unspecified; E66.9 Obesity, unspecified; J44.9 Chronic obstructive pulmonary disease, unspecified; G43.909 Migraine, unspecified, not intractable, without status migrainosus; E78.5 Hyperlipidemia, unspecified; K21.9 Gastro-esophageal reflux disease without esophagitis; F41.9 Anxiety disorder, unspecified; Z86.16 Personal history of COVID-19; Z95.0 Presence of cardiac pacemaker; Z79.899 Other long term (current) drug therapy; Z79.01 Long term (current) use of anticoagulants; Z68.34 Body mass index [BMI] 34.0-34.9, adult
CPT/HCPCS: 36415; 71045; 80053; 80061; 83735; 83874; 84100; 84145; 84484; 85025; 85610; 85730; 87081; 93005; 94640; 94664; 94761; 96374; 96375; 96376; G0378

== ENCOUNTER → 2021-11-01 | Outpatient (CLI) | payer BC ==
[~2021-11-01] MED LIST changes: +AMIO200T65 PO; +ASCORBIC ACID PO; +CHOLECALCIFEROL PO; +DEXL60CA6 PO; +DILT-27 PO; +FLUT100B IH; +LEVO5TAB12 PO; +RIVA20TA PO; +SMTR50T PO; +ZINC PO
--- NOTE | 2021-11-01 10:26 | Diagnostic Imaging Report ---
INDICATION: Cough. COMPARISON: 10/15/2021 FINDINGS: Single frontal radiographic view of the chest was obtained and demonstrates asymmetric elevation of the right hemidiaphragm with platelike atelectasis in the right base. Left lung is clear. There is no large effusion or pneumothorax on either side. Cardiac silhouette and point vasculature stable. Left-sided 2-lead pacemaker is noted. Osseous structures show no gross acute abnormalities. IMPRESSION: 1. Asymmetric elevation right hemidiaphragm with right basilar atelectasis. Dictated by: Dictated on workstation # [id number]
--- NOTE | 2021-11-01 10:32 | Diagnostic Imaging Report ---
PROCEDURE: US venous upper extremity left. TECHNIQUE: Multiple realtime grayscale images were obtained of left upper extremity in various projections. Additional spectral analysis and color Doppler duplex images were also obtained. INDICATION: Pain and swelling to left arm. FINDINGS: Real-time imaging shows normal color-flow enhancement throughout the left upper extremity venous system. Jugular vein is widely patent. There is normal augmentation of flow in the antecubital region with compression of the forearm. IMPRESSION: No evidence of venous thrombosis left upper extremity. Dictated by: Dictated on workstation # [id number]
== END ==
LOC: CARD 09:11
PROVIDERS: ATTEND Family Medicine
DX: M79.622 Pain in left upper arm (principal); J98.11 Atelectasis; R07.89 Other chest pain; M79.89 Other specified soft tissue disorders
CPT/HCPCS: 71045; 93005

== ENCOUNTER 2021-11-13 10:08 | Emergency (ER) | payer BC ==
[~2021-11-13] VITALS: Ht 162 cm; Wt 88.4 kg
[2021-11-13] MEDS ORDERED: ASPIRIN 81 MG CHEW (CHILDREN'S ASA) PO ONE (11:15)
--- NOTE | 2021-11-13 11:17 | ED Chest Pain ---
General Chief Complaint: Back Problems Stated Complaint: BACK PAIN - L SIDE RIB PAIN - HEART RACING Nursing Triage Note: PT PRESENTS TO ED VIA POV FROM HOME WITH COMPLAINTS OF R SIDED BACK PAIN, PALPITATIONS(RACING HR), KRAFT, DIZZINESS, AND NAUSEA X 2 DAYS. Source: patient Exam Limitations: no limitations History of Present Illness Date Seen by Provider: November 13, 2021 Time Seen by Provider: 11:18 Initial Comments Patient is a 56-year-old female with a history of CHF, A. fib currently on Xarelto presents ED with left-sided and right sided chest pain, upper abdominal pain. New onset left-sided upper abdominal pain rib pain started 2 days ago has been constant with radiation to her back. Right sided abdominal pain after her ablation. She states she had a cardiac ablation secondary to a flutter on October [address] DYER at [facility]. 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 Currently on a spirometer. Patient states she has been coughing feeling short of breath since last or Thursday. She states she wears oxygen at night and periodically through the day. She states her oxygen was in the lower 90s last week. She reports a mild cough without sputum production since . She has had some intermittent upper chest pain as well. Nausea without vomiting or diarrhea. She also reports this pain in her left upper abdomen with radiation to her upper back that started yesterday. This has been a constant sharp pain appears to be worse with cough. Abdominal discomfort with eating which appears chronic. She states she does have a hiatal hernia. normal urinary symptoms. She states she felt lightheaded and dizzy yesterday and today. She has associated headache. Beating faster and and increasing when she stands up. States her heart rate feels like its patient denies fever, neck pain, dysuria, hematuria lower extremity weakness. Denies of any dark tarry stools, vomiting, hematemesis. Allergies and Home Medications Allergies Coded Allergies: Latex, Natural Rubber (Unverified Allergy, Intermediate, Shortness of Breath, 09/27/20) Patient Home Medication List Home Medication List Reviewed: Yes Albuterol Sulfate (Albuterol Sulfate) 1.25 Mg/3 Ml Vial.neb, 3 ML NEB Q8H PRN for SHORTNESS OF BREATH Prescribed by: ELISE DUDLEY on 10/16/21 0904 Amiodarone HCl (Amiodarone HCl) 200 Mg Tablet, 200 MG PO BID Prescribed by: ELISE DUDLEY on 10/16/21 1236 Amoxicillin/Potassium Clav (Augmentin 500-125 Tablet) 500 Mg-125 Mg Tablet, 1 EACH PO TID Prescribed by: SOLIS COLLIER on 11/13/21 1321 Azithromycin (Azithromycin) 250 Mg Tablet, 250 MG PO UD Prescribed by: SOLIS COLLIER on 11/13/21 1321 Clonidine HCl (Clonidine HCl) 0.1 Mg Tablet, 0.1 MG PO BID PRN for BLOOD PRESSURE, (Reported) Entered as Reported by: LEOBARDO CARLIN on 08/26/21 1043 Dexlansoprazole (Dexlansoprazole Dr) 60 Mg Cap.dr.bp, 60 MG PO 1700, (Reported) Entered as Reported by: LEOBARDO CARLIN on 10/14/21 1102 Diazepam (Diazepam) 5 Mg Tablet, 5 MG PO BID PRN for ANXIETY, (Reported) Entered as Reported by: LEOBARDO CARLIN on 08/26/21 1043 Diltiazem HCl (Diltiazem 24Hr ER) 120 Mg Cap.er.24h, 120 MG PO DAILY Prescribed by: ELISE DUDLEY on 10/16/21 1236 Fish Oil/Dha/Epa (Fish Oil 1,200 mg Fish Oil) 1 Each Capsule, 1 EACH PO DAILY, (Reported) Entered as Reported by: LEOBARDO CARLIN on 08/26/21 1043 Fluticasone Furoate (Arnuity Ellipta) 100 Mcg Blst.w.dev, 100 MCG IH DAILY, (Reported) Entered as Reported by: LEOBARDO CARLIN on 10/14/21 1102 Furosemide (Furosemide) 20 Mg Tablet, 20 MG PO DAILY, (Reported) Entered as Reported by: LEOBARDO CARLIN on 08/26/21 1043 Hydrocodone/Acetaminophen (Hydrocodone-Acetamin 5-325 mg) 5 Mg-325 Mg Tablet, 1 TAB PO Q4H PRN for PAIN-MODERATE (5-7) Prescribed by: SOLIS COLLIER on 11/13/21 1322 Levocetirizine Dihydrochloride (Levocetirizine Dihydrochloride) 5 Mg Tablet, 5 MG PO HS, (Reported) Entered as Reported by: LEOBARDO CARLIN on 10/14/21 1102 Levothyroxine Sodium (Levothyroxine Sodium) 112 Mcg Tablet, 112 MCG PO DAILY, (Reported) Entered as Reported by: LEOBARDO CARLIN on 08/26/21 1043 Metoclopramide HCl (Metoclopramide HCl) 10 Mg Tablet, 10 MG PO QIDACHS, (Reported) Entered as Reported by: LEOBARDO CARLIN on 08/26/21 1043 Ondansetron (Ondansetron Odt) 4 Mg Tab.rapdis, 4 MG PO Q6H PRN for NAUSEA/VOMITING-1ST LINE, (Reported) Entered as Reported by: LEOBARDO CARLIN on 10/14/21 110 Rivaroxaban (Xarelto) 20 Mg Tablet, 20 MG PO 1700, (Reported) Entered as Reported by: LEOBARDO CARLIN on 10/14/21 110 Sumatriptan Succinate (Imitrex) 50 Mg Tab, 50 MG PO DAILY PRN for HEADACHE Prescribed by: ELISE DUDLEY on 10/16/21 0904 Vitamin E Mixed (Vitamin E) 100 Unit Tablet, 100 UNIT PO DAILY, (Reported) Entered as Reported by: LEOBARDO CARLIN on 08/26/21 1043 [Vit C/D3/Zinc] , 1 EA PO DAILY, (Reported) Entered as Reported by: LEOBARDO CARLIN on 10/14/21 110 Review of Systems Review of Systems Constitutional: No chills, No diaphoresis, No malaise, No weakness EENTM: No Blurred Vision, No Double Vision, No Eye Pain, No Mouth Pain Respiratory: Denies Cough; Shortness of Air; Denies Wheezing Cardiovascular: Chest Pain; Denies Edema, Denies Irregular Heart Rate Gastrointestinal: Abdominal Pain; Denies Constipated, Denies Diarrhea; Nausea Genitourinary: Denies Burning, Denies Discharge, Denies Drainage Musculoskeletal: back pain; No joint pain Skin: No change in color, No change in hair/nails All Other Systems Reviewed Negative Unless Noted: Yes Past Cvxuoub-Ffarlq-Qocxbd Hx Patient Social History Tobacco Use?: No Substance use?: No Alcohol Use?: No Pt feels they are or have been: No Immunizations Up To Date Tetanus Booster (TDap): Less than 5yrs PED Vaccines UTD: Yes First/Initial COVID19 Vaccinat: NONE Second COVID19 Vaccination Arley: NONE\\ Third COVID19 Vaccination Date: NONE Seasonal Allergies Seasonal Allergies: Yes Past Medical History Surgery/Hospitalization HX: pacemaker, CHF, A-fib, Cardiac cath, 3 cardiac ablasions, hysterectomy, appendectomy, tonsillectomy, titi, hiatal hernia Surgeries: Yes (D&C'S, LAPAROSCOPY, UVULA REMOVED, hiatal H. 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 Genitourinary: No (BLADDER SLING) Gastrointestinal: Yes Liver Disease/Jaundice, Reina's Esophagus, Polyps, Hiatal Hernia Musculoskeletal: Yes Chronic Back Pain Endocrine: Yes Hypothyroidsim HEENT: No Loss of Vision: Denies Hearing Impairment: Denies Cancer: No Psychosocial: Yes Depression Integumentary: Yes Eczema, Psoriasis Blood Disorders: No Family Medical History Colon cancer Noncontributory Physical Exam Vital Signs Vital Signs - First Documented 11/13/21 10:39 Pulse 98 Resp 18 B/P (MAP) 137/101 (113) Pulse Ox 96 Capillary Refill : Less Than 3 Seconds Height, Weight, BMI Height: '" Weight: lbs. oz. kg; 33.00 BMI Method: General Appearance: No Apparent Distress, WD/WN HEENT: PERRL/EOMI, TMs Normal, Normal ENT Inspection, Pharynx Normal Neck: Full Range of Motion, Normal Inspection, Non Tender, Supple Respiratory: Chest Non Tender, Lungs Clear, Normal Breath Sounds, No Accessory Muscle Use, No Respiratory Distress Cardiovascular: Regular Rate, Rhythm, No Edema, No Gallop, No JVD, No Murmur Gastrointestinal: Normal Bowel Sounds, No Organomegaly, No Pulsatile Mass, Soft, Tenderness (Left upper quadrant tenderness on palpation.) Extremity: Normal Capillary Refill, Normal Inspection, Normal Range of Motion, Non Tender, No Calf Tenderness Neurologic/Psychiatric: Alert, Oriented x3, No Motor/Sensory Deficits, Normal Mood/Affect Skin: Normal Color, Warm/Dry Progress/Results/Core Measures Results/Orders Lab Results Laboratory Tests Test 11/13/21 10:58 11/13/21 12:34 11/13/21 13:28 Range/Units White Blood Count 9.0 4.3-11.0 10^3/uL Red Blood Count 5.27 H 3.80-5.11 10^6/uL Hemoglobin 15.2 11.5-16.0 g/dL Hematocrit 45 35-52 % Mean Corpuscular Volume 85 80-99 fL Mean Corpuscular Hemoglobin 29 25-34 pg Mean Corpuscular Hemoglobin Concent 34 32-36 g/dL Red Cell Distribution Width 12.6 10.0-14.5 % Platelet Count 317 130-400 10^3/uL Mean Platelet Volume 10.6 9.0-12.2 fL Immature Granulocyte % (Auto) 0 % Neutrophils (%) (Auto) 54 42-75 % Lymphocytes (%) (Auto) 37 12-44 % Monocytes (%) (Auto) 6 0-12 % Eosinophils (%) (Auto) 2 0-10 % Basophils (%) (Auto) 1 0-10 % Neutrophils # (Auto) 4.9 1.8-7.8 10^3/uL Lymphocytes # (Auto) 3.3 1.0-4.0 10^3/uL Monocytes # (Auto) 0.5 0.0-1.0 10^3/uL Eosinophils # (Auto) 0.1 0.0-0.3 10^3/uL Basophils # (Auto) 0.1 0.0-0.1 10^3/uL Immature Granulocyte # (Auto) 0.0 0.0-0.1 10^3/uL Prothrombin Time 18.8 H 12.2-14.7 SEC INR Comment 1.5 H 0.8-1.4 Activated Partial Thromboplast Time 40 H 24-35 SEC Sodium Level 138 135-145 MMOL/L Potassium Level 4.3 3.6-5.0 MMOL/L Chloride Level 104 98-107 MMOL/L Carbon Dioxide Level 21 21-32 MMOL/L Anion Gap 13 5-14 MMOL/L Blood Urea Nitrogen 16 7-18 MG/DL Creatinine 1.06 0.60-1.30 MG/DL Estimat Glomerular Filtration Rate 62 BUN/Creatinine Ratio 15 Glucose Level 106 H 70-105 MG/DL Calcium Level 9.7 8.5-10.1 MG/DL Corrected Calcium 8.5-10.1 MG/DL Magnesium Level 2.1 1.6-2.4 MG/DL Total Bilirubin 0.4 0.1-1.0 MG/DL Aspartate Amino Transf (AST/SGOT) 27 5-34 U/L Alanine Aminotransferase (ALT/SGPT) 45 0-55 U/L Alkaline Phosphatase 112 40-136 U/L Myoglobin 25.1 10.0-92.0 NG/ML Troponin I < 0.028 < 0.028 <0.028 NG/ML B-Type Natriuretic Peptide < 10.0 <100.0 PG/ML Total Protein 8.0 6.4-8.2 GM/DL Albumin 4.6 H 3.2-4.5 GM/DL Urine Color YELLOW Urine Clarity CLEAR Urine pH 8.0 5-9 Urine Specific [place] 1.010 L 1.016-1.022 Urine Protein NEGATIVE NEGATIVE Urine Glucose (UA) NEGATIVE NEGATIVE Urine Ketones NEGATIVE NEGATIVE Urine Nitrite NEGATIVE NEGATIVE Urine Bilirubin NEGATIVE NEGATIVE Urine Urobilinogen 0.2 < = 1.0 MG/DL Urine Leukocyte Esterase NEGATIVE NEGATIVE Urine RBC (Auto) 2+ H NEGATIVE Urine RBC 10-25 H /HPF Urine WBC NONE /HPF Urine Squamous Epithelial Cells 2-5 /HPF Urine Crystals NONE /LPF Urine Bacteria NEGATIVE /HPF Urine Casts NONE /LPF Urine Mucus NEGATIVE /LPF Urine Culture Indicated NO My Orders Orders - MATT AUSTIN Cbc With Automated Diff (11/13/21 11:13) Magnesium (11/13/21 11:13) Comprehensive Metabolic Panel (11/13/21 11:13) Myoglobin Serum (11/13/21 11:13) Protime With Inr (11/13/21 11:13) Partial Thromboplastin Time (11/13/21 11:13) Monitor-Rhythm Ecg Trace Only (11/13/21 11:13) Ed Iv/Invasive Line Start (11/13/21 11:13) Bnp Ayden (11/13/21 11:13) Troponin I Aydne (11/13/21 11:13) Aspirin Chewable Tablet (Baby Aspirin Ch (11/13/21 11:15) Ua Culture If Indicated (11/13/21 11:13) Ct Skye Chest/Noang Abd-Pelv W (11/13/21 11:13) Orthostatic Vital Signs (Adult (11/13/21 11:20) Iohexol Injection (Omnipaque 350 Mg/Ml 1 (11/13/21 11:30) Received Contrast (Hold Metformin- Contr (11/13/21 11:30) Ns (Ivpb) (Sodium Chloride 0.9% Ivpb Bag (11/13/21 11:30) Sodium Chloride Flush (Catheter Flush Sy (11/13/21 11:30) Troponin I Ayden (11/13/21 13:16) Morphine Injection (Morphine Injection (11/13/21 13:45) Medications Given in ED Current Medications Medications Dose Ordered Sig/Giselle Route Start Time Stop Time Status Last Admin Dose Admin Aspirin 324 mg ONCE ONCE PO 11/13/21 11:15 11/13/21 11:17 DC 11/13/21 11:22 324 MG Iohexol 100 ml ONCE ONCE IV 11/13/21 11:30 11/13/21 11:31 DC 11/13/21 11:36 75 ML Morphine Sulfate 4 mg ONCE ONCE IVP 11/13/21 13:45 11/13/21 13:46 DC 11/13/21 13:40 4 MG Sodium Chloride 10 ml NEEDED PRN IV 11/13/21 11:30 11/13/21 13:50 DC 11/13/21 11:36 10 ML Sodium Chloride 100 ml ONCE ONCE IV 11/13/21 11:30 11/13/21 11:31 DC 11/13/21 11:36 70 ML Vital Signs/I&O 11/13/21 11/13/21 10:39 13:50 Pulse 98 97 Resp 18 19 B/P (MAP) 137/101 (113) 140/96 Pulse Ox 96 96 Blood Pressure Mean: 113 Departure Communication (PCP) Patient is a 56-year-old female who presents to the ED for multiple complaints. States last week she started feeling short of breath with wet productive cough. History of atrial flutter with ablation this past month at [facility]. Currently on Xarelto. She is not tachycardic or hypoxic but states she is feeling short of breath with the cough. Had to wear oxygen during the day because of oxygen level in the lower 90's. She states she does wear oxygen intermittently at night. No known history of COPD. Worsening cough with this developing left upper abdominal pain with radiation to the flank. Urinalysis did note some hematuria. No evidence of infection. EKG showed sinus rhythm with T wave abnormality in V3 through V6 which is very similar to her previous EKG this past month. Initial troponin was negative. Normal BMP. History of CHF currently on Lasix and spironolactone. Lab work was otherwise unremarkable. Normal lipase, liver function, BNP. CT angio of the chest was negative for PE but did show concerns for pneumonitis on the right side. Elevation of the right hemidiaphragm which was secondary from complication of the ablation. She states she was placed on steroids last week without much improvement. Has been using her nebulizer treatment with some improvement. She states she may have underlying COPD. Concerning for the pneumonitis which may be noninfectious versus infectious etiology. It did show right elevated hemidiaphragm which is result from complications of ablation. Currently on spirometer. More prone to infections due to the elevation of the right diaphragm will treat for potential infectious etiology with Augmentin and azithromycin combination therapy. CT abdomen pelvis negative for acute abnormality. She states she has had a history of this upper abdominal pain and believes this is secondary to her hiatal hernia. She has been having right-sided upper abdominal pain, rib pain post cardiac ablation believes this is secondary to right elevated hemodiafiltration. She is on Protonix which I recommend continue. Further evaluation may be needed with specialist rule out other etiologies such as H. pylori. Pain to the left upper abdomen is new and may be secondary to the cough as she does have chest wall tenderness. Second troponin was negative. Dizziness and lightheadedness improved. She is not orthostatic hypotensive. No leg swelling. Normal BNP continue monitoring oxygen and symptoms at home. She is not hypoxic here and on room air. Follow-up with your PCP in 2 to 3 days for reevaluation. 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 Return precautions were discussed with patient. Patient has no current chest pain at this time. Impression Primary Impression: Pneumonitis Disposition: 01 HOME, SELF-CARE Condition: Stable Departure-Patient Inst. Decision time for Depature: 13:19 Referrals: JIMY BENNETT MD (PCP/Family) Primary Care Physician Patient Instructions: Pneumonia, Adult ED Scripts Hydrocodone/Acetaminophen (Hydrocodone-Acetamin 5-325 mg) 5 Mg-325 Mg Tablet 1 TAB PO Q4H PRN for PAIN-MODERATE (5-7), #4 TAB Prov: MATT AUSTIN 11/13/21 Azithromycin (Azithromycin) 250 Mg Tablet 250 MG PO UD, #6 TAB TAKE 2 TABLETS ON DAY ONE THEN TAKE 1 TABLET DAILY FOR FOUR MORE DAYS Prov: MATT AUSTIN 11/13/21 Amoxicillin/Potassium Clav (Augmentin 500-125 Tablet) 500 Mg-125 Mg Tablet 1 EACH PO TID for 7 Days, #21 TAB Prov: MATT AUSTIN 11/13/21 MATT AUSTIN November 13, 2021 11:17
[2021-11-13 11:22] LABS: BASOPHILS # (AUTO) 0.1 10^3/uL (0.0-0.1); BASOPHILS % (AUTO) 1 % (0-10); EOSINOPHILS # (AUTO) 0.1 10^3/uL (0.0-0.3); EOSINOPHILS % (AUTO) 2 % (0-10); HEMATOCRIT 45 % (35-52); HEMOGLOBIN 15.2 g/dL (11.5-16.0); LYMPHOCYTES # (AUTO) 3.3 10^3/uL (1.0-4.0); LYMPHOCYTES % (AUTO) 37 % (12-44); MEAN CORPUSCULAR HEMOGLOBIN 29 pg (25-34); MEAN CORPUSCULAR HGB CONC 34 g/dL (32-36); MEAN CORPUSCULAR VOLUME 85 fL (80-99); MEAN PLATELET VOLUME 10.6 fL (9.0-12.2); MONOCYTES # (AUTO) 0.5 10^3/uL (0.0-1.0); MONOCYTES % (AUTO) 6 % (0-12); NEUTROPHILS # (AUTO) 4.9 10^3/uL (1.8-7.8); NEUTROPHILS % (AUTO) 54 % (42-75); PLATELET COUNT 317 10^3/uL (130-400)
[2021-11-13 11:27] LABS: ALBUMIN 4.6 GM/DL (3.2-4.5)
[2021-11-13 11:28] LABS: CHLORIDE 104 MMOL/L (98-107); POTASSIUM 4.3 MMOL/L (3.6-5.0); SODIUM 138 MMOL/L (135-145)
[2021-11-13 11:29] LABS: CALCIUM 9.7 MG/DL (8.5-10.1)
[2021-11-13 11:30] LABS: GLUCOSE 106 MG/DL (70-105)
[2021-11-13] MEDS ORDERED: HOLD METFORMIN - RECEIVED CONTRAST 20 ML VIAL IV SCH (11:30)
[2021-11-13] MEDS ORDERED: NS 100 ML (IVPB) BAG IV ONE (11:30)
[2021-11-13] MEDS ORDERED: IOHEXOL 350 MG/ML 100 ML (OMNIPAQUE 350) VIAL IV ONE (11:30)
[2021-11-13] MEDS ORDERED: CATHETER FLUSH 10 ML SYR IV PRN (11:30)
[2021-11-13 11:31] LABS: CARBON DIOXIDE 21 MMOL/L (21-32)
[2021-11-13 11:32] LABS: BILIRUBIN,TOTAL 0.4 MG/DL (0.1-1.0)
[2021-11-13 11:33] LABS: ALKALINE PHOSPHATASE 112 U/L (40-136); INR 1.5 (0.8-1.4); PROTHROMBIN TIME PATIENT 18.8 SEC (12.2-14.7)
[2021-11-13 11:34] LABS: CREATININE SERUM 1.06 MG/DL (0.60-1.30); GFR ESTIMATED 62
[2021-11-13 11:35] LABS: BUN/CREATININE RATIO 15
[2021-11-13 11:36] LABS: ALANINE AMINOTRANSFERASE 45 U/L (0-55)
[2021-11-13 11:37] LABS: MAGNESIUM 2.1 MG/DL (1.6-2.4)
--- NOTE | 2021-11-13 12:15 | Diagnostic Imaging Report ---
EXAM: CT MESERET CHEST/NOANG ABD-PELV W All CT scans use one or more of the following dose optimizing techniques: automated exposure control, MA and/or KvP adjustment based on patient size and exam type, or iterative reconstruction. 3D reconstructions including MIPs of the angiographic images were performed and reviewed. INDICATION: Left-sided chest and abdominal pain. Dizziness. COMPARISON: CT abdomen and pelvis IV contrast 10/18/2021. FINDINGS: CTA CHEST: No pulmonary artery filling defects. Normal caliber thoracic aorta without evidence of dissection. Normal heart size. No pericardial effusion. No lymphadenopathy. Marked elevation of the right hemidiaphragm. New consolidation in the right lower lobe with air bronchograms suspicious for pneumonitis. More linear consolidation the left lung base likely representing atelectasis. No pleural effusion or pneumothorax. Cardiac pacer. CT abdomen and pelvis: Cholecystectomy. The liver, pancreas, spleen, adrenals, kidneys, collecting systems and bladder demonstrate no acute findings. Nonobstructing calyceal tip renal stone in the right kidney measuring up to 0.8 cm. Moderate esophageal hiatal hernia is again seen. Appendectomy. Hysterectomy. No free intraperitoneal air or fluid. No evidence of bowel obstruction. No lymphadenopathy. No acute osseous findings. IMPRESSION: 1. No pulmonary emboli. 2. New dense consolidation with air bronchograms in the right lower lobe suspicious for pneumonitis. 3. No acute CT findings in the abdomen or pelvis. Dictated by: Dictated on workstation # [id number]
[2021-11-13 12:42] LABS: BILIRUBIN,URINE NEGATIVE (NEGATIVE); CLARITY,URINE CLEAR; COLOR,URINE YELLOW; GLUCOSE, URINE (UA) NEGATIVE (NEGATIVE); KETONES,URINE NEGATIVE (NEGATIVE); LEUKOCYTE ESTERASE ,URINE NEGATIVE (NEGATIVE); NITRITE,URINE NEGATIVE (NEGATIVE); PROTEIN,URINE NEGATIVE (NEGATIVE)
[2021-11-13 12:55] LABS: BACTERIA,URINE NEGATIVE /HPF
[2021-11-13] MEDS ORDERED: AZIT250T12 PO (13:21)
[2021-11-13] MEDS ORDERED: AMOX-355 PO (13:21)
[2021-11-13] MEDS ORDERED: ACHD5005 PO (13:22)
[2021-11-13] MEDS ORDERED: morphine INJ 10 MG/ML 1ML (SYR OR VIAL) IVP ONE (13:45)
[2021-11-13 13:50] VITALS: BP 140/96
== END 2021-11-13 13:49 | disposition home or self-care (01) ==
LOC: EDUNIT# 10:08 → ER 10:10
DX: J18.9 Pneumonia, unspecified organism (principal); I11.0 Hypertensive heart disease with heart failure; I50.9 Heart failure, unspecified; I48.91 Unspecified atrial fibrillation; Z28.310 Unvaccinated for COVID-19; Z79.01 Long term (current) use of anticoagulants; Z87.09 Personal history of other diseases of the respiratory system; Z99.11 Dependence on respirator [ventilator] status; Z95.9 Presence of cardiac and vascular implant and graft, unspecified
CPT/HCPCS: 36415; 71275; 74177; 80053; 81000; 83735; 83874; 83880; 84484; 85025; 85610; 85730; 93005; 93041

== ENCOUNTER → 2021-11-27 | Outpatient (CLI) | payer BC ==
[~2021-11-27] MED LIST changes: +AMOX-355 PO
--- NOTE | 2021-11-27 11:01 | Diagnostic Imaging Report ---
INDICATION: FATTY LIVER TECHNIQUE: Multiple real-time banegas scale sonographic images of the abdomen. CORRELATION STUDY: None FINDINGS: LIVER: Liver size 15.8 cm. Left lobe is partially obscured by overlying bowel gas. There is increased echotexture within the visualized portions of the liver. There is normal, hepatopedal direction of flow within the main portal vein. GALLBLADDER: Cholecystectomy. COMMON BILE DUCT: Obscured and not visualized. No overt bile duct dilatation. PANCREAS: Largely obscured by overlying bowel gas. SPLEEN: Unremarkable at 8.1 x 3.2 x 3.5 cm. ABDOMINAL AORTA: Unremarkable. INFERIOR VENA CAVA: Limited in visualization. RIGHT KIDNEY: 9.2 x 4.5 x 5.5 cm. Unremarkable. LEFT KIDNEY: 10.0 x 5.0 x 5.4 cm. Unremarkable. OTHER: None. IMPRESSION: 1. Limitations particularly of the mid abdominal structures secondary to overlying bowel gas. 2. Probable hepatic steatosis with an otherwise normal-sized liver. 3. Cholecystectomy. Dictated by: Dictated on workstation # [id number]
== END ==
LOC: RAD 08:21
PROVIDERS: ATTEND Internal Medicine
DX: K76.0 Fatty (change of) liver, not elsewhere classified (principal); Z90.49 Acquired absence of other specified parts of digestive tract
CPT/HCPCS: 76700

== ENCOUNTER → 2022-01-01 | Outpatient (CLI) | payer BC ==
[~2022-01-01] MED LIST changes: +RT-ALBUTEROL SULF 2.5 MG/3 ML PRE-MIX VIAL INH ONE
--- NOTE | 2022-01-01 11:07 | Diagnostic Imaging Report ---
Indication: Elevated right hemidiaphragm. Studies performed evaluate for diaphragmatic paralysis. Patient brought to the fluoroscopy suite. Fluoroscopy over the chest was performed during normal respiration as well as during performance of sniffing. Total of 66 seconds of fluoroscopic time was utilized. Preliminary radiograph over the chest does show an elevated right hemidiaphragm with subsegmental atelectasis in the right lung base. During sniffing there is normal excursion of the left hemidiaphragm. No movement of the elevated right hemidiaphragm was detected during normal respiration or during sniffing. No paradoxical movement was seen. IMPRESSION: Right hemidiaphragmatic paralysis. Dictated by: Dictated on workstation # [id number]
== END ==
LOC: RT 09:50
PROVIDERS: ATTEND Internal Medicine Critical Care Medicine
DX: J98.6 Disorders of diaphragm (principal)
CPT/HCPCS: 76000; 94060; 94726; 94729

== ENCOUNTER 2022-01-15 11:23 | Emergency (ER) | payer BC ==
[~2022-01-15] VITALS: Ht 160 cm; Wt 90.0 kg
[~2022-01-15 11:23] MED LIST changes: -RT-ALBUTEROL SULF 2.5 MG/3 ML PRE-MIX VIAL INH ONE
[2022-01-15] MEDS ORDERED: NS IV 500 ML 500 ML IV ONE (11:45)
[2022-01-15] MEDS ORDERED: ASPIRIN 81 MG CHEW (CHILDREN'S ASA) PO ONE (11:45)
[2022-01-15 11:54] LABS: BASOPHILS % (AUTO) 0 % (0-10); EOSINOPHILS # (AUTO) 0.2 10^3/uL (0.0-0.3); EOSINOPHILS % (AUTO) 3 % (0-10); HEMATOCRIT 45 % (35-52); HEMOGLOBIN 15.3 g/dL (11.5-16.0); LYMPHOCYTES # (AUTO) 3.4 10^3/uL (1.0-4.0); LYMPHOCYTES % (AUTO) 42 % (12-44); MEAN CORPUSCULAR HEMOGLOBIN 29 pg (25-34); MEAN CORPUSCULAR HGB CONC 34 g/dL (32-36); MEAN CORPUSCULAR VOLUME 86 fL (80-99); MEAN PLATELET VOLUME 10.6 fL (9.0-12.2); MONOCYTES # (AUTO) 0.3 10^3/uL (0.0-1.0); MONOCYTES % (AUTO) 4 % (0-12); NEUTROPHILS # (AUTO) 4.2 10^3/uL (1.8-7.8); NEUTROPHILS % (AUTO) 51 % (42-75); PLATELET COUNT 301 10^3/uL (130-400); WHITE BLOOD COUNT 8.1 10^3/uL (4.3-11.0)
[2022-01-15 11:56] LABS: ALBUMIN 4.5 GM/DL (3.2-4.5)
[2022-01-15 11:57] LABS: POTASSIUM 3.5 MMOL/L (3.6-5.0)
[2022-01-15 11:58] LABS: CALCIUM 9.5 MG/DL (8.5-10.1)
[2022-01-15 11:59] LABS: TOTAL PROTEIN 7.3 GM/DL (6.4-8.2)
[2022-01-15 12:01] LABS: BILIRUBIN,TOTAL 0.5 MG/DL (0.1-1.0)
[2022-01-15 12:02] LABS: CREATININE SERUM 0.97 MG/DL (0.60-1.30)
[2022-01-15 12:04] LABS: INR 2.3 (0.8-1.4); PROTHROMBIN TIME PATIENT 25.6 SEC (12.2-14.7)
[2022-01-15 12:06] LABS: MAGNESIUM 1.7 MG/DL (1.6-2.4)
--- NOTE | 2022-01-15 12:07 | ED Chest Pain ---
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 reports dyspnea onset yesterday. worse w/ exertion. reports mild chest tightness and palpations w/ this. improved w/ rest. initial HR 140s w/ ambulating from waiting room. HR decreased w/ HOB and rest perior to 110s. Source: patient Exam Limitations: no limitations History of Present Illness Date Seen by Provider: Jan 15, 2022 Time Seen by Provider: 11:39 Initial Comments Patient to the ER by private conveyance with chief complaint of the last day of progressively worsening shortness of breath even while at rest but especially with exertion. Right side chest tightness radiating to her right shoulder. History of CHF, atrial fibrillation. No lung disease. No history of coronary disease. She does not take anything for the pain. No fevers chills nausea vomiting diarrhea. She is on Xarelto. She reveals now that her boyfriend just called and said that they were both and contact over the weekend with somebody who just tested positive with COVID. She does not smoke have diabetes or hyperlipidemia but does take clonidine occasionally for hypertension. She has no history of coronary disease but has family history that her father of a heart attack at age 65. Allergies and Home Medications Allergies Coded Allergies: Latex, Natural Rubber (Unverified Allergy, Intermediate, Shortness of Breath, 09/27/20) Patient Home Medication List Home Medication List Reviewed: Yes Albuterol Sulfate (Albuterol Sulfate) 1.25 Mg/3 Ml Vial.neb, 3 ML NEB Q8H PRN f or SHORTNESS OF BREATH Prescribed by: ELISE DUDLEY on 10/16/21 0904 Amiodarone HCl (Amiodarone HCl) 200 Mg Tablet, 200 MG PO BID Prescribed by: ELISE DUDLEY on 10/16/21 1236 Amoxicillin/Potassium Clav (Augmentin 500-125 Tablet) 500 Mg-125 Mg Tablet, 1 EACH PO TID Prescribed by: SOLIS COLLIER on 11/13/21 1321 Azithromycin (Azithromycin) 250 Mg Tablet, 250 MG PO UD Prescribed by: SOLIS COLLIER on 11/13/21 1321 Clonidine HCl (Clonidine HCl) 0.1 Mg Tablet, 0.1 MG PO BID PRN for BLOOD P RESSURE, (Reported) Entered as Reported by: LEOBARDO CARLIN on 08/26/21 1043 Dexlansoprazole (Dexlansoprazole Dr) 60 Mg Cap.dr.bp, 60 MG PO 1700, (Reported) Entered as Reported by: LEOBARDO CARLIN on 10/14/21 1102 Diazepam (Diazepam) 5 Mg Tablet, 5 MG PO BID PRN for ANXIETY, (Reported) Entered as Reported by: LEOBARDO CARLIN on 08/26/21 1043 Diltiazem HCl (Diltiazem 24Hr ER) 120 Mg Cap.er.24h, 120 MG PO DAILY Prescribed by: ELISE DUDLEY on 10/16/21 1236 Doxycycline Hyclate (Doxycycline Hyclate) 100 Mg Tablet, 100 MG PO BID Prescribed by: HUBERT GENTILE on 01/15/22 1650 Fish Oil/Dha/Epa (Fish Oil 1,200 mg Fish Oil) 1 Each Capsule, 1 EACH PO DAILY, (Reported) Entered as Reported by: LEOBARDO CARLIN on 08/26/21 104 Fluticasone Furoate (Arnuity Ellipta) 100 Mcg Blst.w.dev, 100 MCG IH DAILY, (Reported) Entered as Reported by: LEOBARDO CARLIN on 10/14/21 110 Furosemide (Furosemide) 20 Mg Tablet, 20 MG PO DAILY, (Reported) Entered as Reported by: LEOBARDO CARLIN on 08/26/21 104 Hydrocodone/Acetaminophen (Hydrocodone-Acetamin 5-325 mg) 5 Mg-325 Mg Tablet, 1 TAB PO Q4H PRN for PAIN-MODERATE (5-7) Prescribed by: SOLIS COLLIER on 11/13/21 1322 Hydrocodone/Acetaminophen (Hydrocodone-Acetamin 7.5-325) 7.5 Mg-325 Mg Tablet, 1 EACH PO Q6H PRN for PAIN-BREAKTHROUGH Prescribed by: HUBERT GENTILE on 01/15/22 1750 Last Action: New Order Levocetirizine Dihydrochloride (Levocetirizine Dihydrochloride) 5 Mg Tablet, 5 MG PO HS, (Reported) Entered as Reported by: LEOBARDO CARLIN on 10/14/21 1102 Levothyroxine Sodium (Levothyroxine Sodium) 112 Mcg Tablet, 112 MCG PO DAILY, (Reported) Entered as Reported by: LEOBARDO CARLIN on 08/26/21 1043 Metoclopramide HCl (Metoclopramide HCl) 10 Mg Tablet, 10 MG PO QIDACHS, (Reported) Entered as Reported by: LEOBARDO CARLIN on 08/26/21 104 Ondansetron (Ondansetron Odt) 4 Mg Tab.rapdis, 4 MG PO Q6H PRN for NAUSEA/VOMITING-1ST LINE, (Reported) Entered as Reported by: LEOBARDO CARLIN on 10/14/21 1102 Rivaroxaban (Xarelto) 20 Mg Tablet, 20 MG PO 1700, (Reported) Entered as Reported by: LEOBARDO CARLIN on 10/14/21 1102 Sumatriptan Succinate (Imitrex) 50 Mg Tab, 50 MG PO DAILY PRN for HEADACHE Prescribed by: ELISE DUDLEY on 10/16/21 0904 Vitamin E Mixed (Vitamin E) 100 Unit Tablet, 100 UNIT PO DAILY, (Reported) Entered as Reported by: LEOBARDO CARLIN on 08/26/21 1043 [Vit C/D3/Zinc] , 1 EA PO DAILY, (Reported) Entered as Reported by: LEOBARDO CARLIN on 10/14/21 1102 Discontinued Medications Hydrocodone/Acetaminophen (Hydrocodone-Acetamin 5-325 mg) 5 Mg-325 Mg Tablet, 1 TAB PO Q6H PRN for PAIN-MODERATE (5-7) Prescribed by: HUBERT GENTILE on 01/15/22 1651 Last Action: Discontinued Review of Systems Review of Systems Constitutional: No chills, No diaphoresis EENTM: No Blurred Vision, No Double Vision Respiratory: Denies Cough; Shortness of Air Cardiovascular: Denies Chest Pain, Denies Lightheadedness Gastrointestinal: Denies Constipated, Denies Diarrhea Genitourinary: Denies Burning, Denies Discharge All Other Systems Reviewed Negative Unless Noted: Yes Past Vbajoie-Bqrolr-Lhudzp Hx Patient Social History Tobacco Use?: No Substance use?: No Alcohol Use?: Yes Alcohol Frequency: Once in a while Pt feels they are or have been: No Immunizations Up To Date Tetanus Booster (TDap): Less than 5yrs PED Vaccines UTD: Yes Influenza Vaccine Up-to-Date: Yes; Up-to-Date First/Initial COVID19 Vaccinat: NONE Second COVID19 Vaccination Arley: NONE\\ Third COVID19 Vaccination Date: NONE Seasonal Allergies Seasonal Allergies: Yes Past Medical History Surgery/Hospitalization HX: pacemaker, CHF, A-fib, Cardiac cath, 3 cardiac ablasions, hysterectomy, appendectomy, tonsillectomy, titi, hiatal hernia Surgeries: Yes (D&C'S, LAPAROSCOPY, UVULA REMOVED, hiatal H. 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, 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, Menopausal Genitourinary: No (BLADDER SLING) Gastrointestinal: Yes Liver Disease/Jaundice, Reina's Esophagus, Polyps, Hiatal Hernia Musculoskeletal: Yes Chronic Back Pain Endocrine: Yes Hypothyroidsim HEENT: No Loss of Vision: Denies Hearing Impairment: Denies Cancer: No Psychosocial: Yes Depression Integumentary: Yes Eczema, Psoriasis Blood Disorders: No Family Medical History Colon cancer Noncontributory Physical Exam Vital Signs Vital Signs - First Documented 01/15/22 01/15/22 11:28 13:12 Temp 36.6 Pulse 114 Resp 28 B/P (MAP) 173/114 Pulse Ox 96 O2 Delivery Nasal Cannula O2 Flow Rate 2.00 Capillary Refill : Less Than 3 Seconds Height, Weight, BMI Height: '" Weight: lbs. oz. kg; 35.00 BMI Method: General Appearance: Anxious, Mild Distress HEENT: PERRL/EOMI, Normal ENT Inspection, Pharynx Normal; No Moist Mucous Membranes Neck: Full Range of Motion, Normal Inspection Respiratory: No Accessory Muscle Use, No Respiratory Distress, Crackles (Few crackles on the right base), Decreased Breath Sounds (Right base) Cardiovascular: Regular Rate, Rhythm, No Edema, Normal Peripheral Pulses Gastrointestinal: Normal Bowel Sounds, Non Tender, Soft Extremity: Normal Capillary Refill, Normal Inspection, No Pedal Edema Neurologic/Psychiatric: Alert, Oriented x3 Skin: Normal Color, Warm/Dry Progress/Results/Core Measures Results/Orders Lab Results Laboratory Tests Test 01/15/22 11:39 01/15/22 12:07 01/15/22 12:40 01/15/22 14:40 Range/Units White Blood Count 8.1 4.3-11.0 10^3/uL Red Blood Count 5.25 H 3.80-5.11 10^6/uL Hemoglobin 15.3 11.5-16.0 g/dL Hematocrit 45 35-52 % Mean Corpuscular Volume 86 80-99 fL Mean Corpuscular Hemoglobin 29 25-34 pg Mean Corpuscular Hemoglobin Concent 34 32-36 g/dL Red Cell Distribution Width 13.4 10.0-14.5 % Platelet Count 301 130-400 10^3/uL Mean Platelet Volume 10.6 9.0-12.2 fL Immature Granulocyte % (Auto) 0 % Neutrophils (%) (Auto) 51 42-75 % Lymphocytes (%) (Auto) 42 12-44 % Monocytes (%) (Auto) 4 0-12 % Eosinophils (%) (Auto) 3 0-10 % Basophils (%) (Auto) 0 0-10 % Neutrophils # (Auto) 4.2 1.8-7.8 10^3/uL Lymphocytes # (Auto) 3.4 1.0-4.0 10^3/uL Monocytes # (Auto) 0.3 0.0-1.0 10^3/uL Eosinophils # (Auto) 0.2 0.0-0.3 10^3/uL Basophils # (Auto) 0.0 0.0-0.1 10^3/uL Immature Granulocyte # (Auto) 0.0 0.0-0.1 10^3/uL Prothrombin Time 25.6 H 12.2-14.7 SEC INR Comment 2.3 H 0.8-1.4 Activated Partial Thromboplast Time 44 H 24-35 SEC Sodium Level 140 135-145 MMOL/L Potassium Level 3.5 L 3.6-5.0 MMOL/L Chloride Level 109 H 98-107 MMOL/L Carbon Dioxide Level 20 L 21-32 MMOL/L Anion Gap 11 5-14 MMOL/L Blood Urea Nitrogen 9 7-18 MG/DL Creatinine 0.97 0.60-1.30 MG/DL Estimat Glomerular Filtration Rate 69 BUN/Creatinine Ratio 9 Glucose Level 214 H 70-105 MG/DL Calcium Level 9.5 8.5-10.1 MG/DL Corrected Calcium 9.1 8.5-10.1 MG/DL Magnesium Level 1.7 1.6-2.4 MG/DL Total Bilirubin 0.5 0.1-1.0 MG/DL Aspartate Amino Transf (AST/SGOT) 29 5-34 U/L Alanine Aminotransferase (ALT/SGPT) 46 0-55 U/L Alkaline Phosphatase 88 40-136 U/L Myoglobin 27.3 10.0-92.0 NG/ML Troponin I < 0.028 <0.028 NG/ML B-Type Natriuretic Peptide 25.0 <100.0 PG/ML Total Protein 7.3 6.4-8.2 GM/DL Albumin 4.5 3.2-4.5 GM/DL SARS-CoV-2 RNA (RT-PCR) Not Detected Not Detecte Blood Gas Puncture Site LR Blood Gas Patient Temperature 36.0 Arterial Blood pH 7.41 7.37-7.43 Arterial Blood Partial Pressure CO2 34 L 35-45 MMHG Arterial Blood Partial Pressure O2 83 79-93 MMHG Arterial Blood HCO3 21 L 23-27 MMOL/L Arterial Blood Total CO2 22.2 21.0-31.0 MMOL/L Arterial Blood Oxygen Saturation 98 94-100 % Arterial Blood Base Excess -2.8 L -2.5-2.5 MMOL/L Maicol Test YES-POS Blood Gas Ventilator Setting NO Blood Gas Inspired Oxygen 2 Urine Color YELLOW Urine Clarity CLEAR Urine pH 5.5 5-9 Urine Specific Allyn >=1.030 1.016-1.022 Urine Protein NEGATIVE NEGATIVE Urine Glucose (UA) NEGATIVE NEGATIVE Urine Ketones NEGATIVE NEGATIVE Urine Nitrite NEGATIVE NEGATIVE Urine Bilirubin NEGATIVE NEGATIVE Urine Urobilinogen 0.2 < = 1.0 MG/DL Urine Leukocyte Esterase NEGATIVE NEGATIVE Urine RBC (Auto) 1+ H NEGATIVE Urine RBC 25-50 H /HPF Urine WBC 0-2 /HPF Urine Squamous Epithelial Cells 2-5 /HPF Urine Crystals PRESENT H /LPF Urine Calcium Oxalate Crystals RARE H /LPF Urine Amorphous Sediment RARE GENIE URATES H /LPF Urine Bacteria NEGATIVE /HPF Urine Casts NONE /LPF Urine Mucus SMALL H /LPF Urine Culture Indicated NO Urine Opiates Screen NEGATIVE NEGATIVE Urine Oxycodone Screen NEGATIVE NEGATIVE Urine Methadone Screen NEGATIVE NEGATIVE Urine Propoxyphene Screen NEGATIVE NEGATIVE Urine Barbiturates Screen NEGATIVE NEGATIVE Ur Tricyclic Antidepressants Screen NEGATIVE NEGATIVE Urine Phencyclidine Screen NEGATIVE NEGATIVE Urine Amphetamines Screen NEGATIVE NEGATIVE Urine Methamphetamines Screen NEGATIVE NEGATIVE Urine Benzodiazepines Screen NEGATIVE NEGATIVE Urine Cocaine Screen NEGATIVE NEGATIVE Urine Cannabinoids Screen NEGATIVE NEGATIVE Test 01/15/22 15:20 Range/Units Troponin I < 0.028 <0.028 NG/ML My Orders Orders - HUBERT GENTILE Continuous Ekg Monitoring (01/15/22 11:28) Ekg Tracing (01/15/22 11:28) Cbc With Automated Diff (01/15/22 11:42) Magnesium (01/15/22 11:42) Chest 1 View, Ap/Pa Only (01/15/22 11:42) Comprehensive Metabolic Panel (01/15/22 11:42) Myoglobin Serum (01/15/22 11:42) Protime With Inr (01/15/22 11:42) Partial Thromboplastin Time (01/15/22 11:42) O2 (01/15/22 11:42) Monitor-Rhythm Ecg Trace Only (01/15/22 11:42) Ed Iv/Invasive Line Start (01/15/22 11:42) Bnp Ayden (01/15/22 11:42) Troponin I Ayden (01/15/22 11:42) Aspirin Chewable Tablet (Baby Aspirin Ch (01/15/22 11:45) Ed Iv/Invasive Line Start (01/15/22 11:44) Ns Iv 500 Ml (Sodium Chloride 0.9%) (01/15/22 11:45) Covid 19 Inhouse Test (01/15/22 12:05) Arterial Blood Gas (01/15/22 12:07) Nitroglycerin 0.4 Mg Btl 25's (Nitrostat (01/15/22 12:15) Troponin I Ayden (01/15/22 14:45) Ct Angio Chest W (01/15/22 14:27) Iohexol Injection (Omnipaque 350 Mg/Ml 1 (01/15/22 14:30) Received Contrast (Hold Metformin- Contr (01/15/22 14:30) Ns (Ivpb) (Sodium Chloride 0.9% Ivpb Bag (01/15/22 14:30) Sodium Chloride Flush (Catheter Flush Sy (01/15/22 14:30) Ua Culture If Indicated (01/15/22 14:35) Drug Screen Stat (Urine) (01/15/22 14:35) Medications Given in ED Current Medications Medications Dose Ordered Sig/Giselle Route Start Time Stop Time Status Last Admin Dose Admin Aspirin 324 mg ONCE ONCE PO 01/15/22 11:45 01/15/22 11:46 DC 01/15/22 12:11 324 MG Iohexol 100 ml ONCE ONCE IV 01/15/22 14:30 01/15/22 14:34 DC 01/15/22 14:50 75 ML Nitroglycerin 0.4 mg NEEDED PRN SL 01/15/22 12:15 01/15/22 17:40 DC 01/15/22 13:14 0.4 MG Sodium Chloride 10 ml NEEDED PRN IV 01/15/22 14:30 01/15/22 17:40 DC 01/15/22 14:50 10 ML Sodium Chloride 100 ml ONCE ONCE IV 01/15/22 14:30 01/15/22 14:34 DC 01/15/22 14:50 80 ML Sodium Chloride 500 ml @ 0 mls/hr Q0M ONCE IV 01/15/22 11:45 01/15/22 11:46 DC 01/15/22 12:11 999 MLS/HR Vital Signs/I&O 01/15/22 01/15/22 01/15/22 01/15/22 11:28 11:28 13:12 13:20 Temp 36.6 Pulse 114 Resp 28 18 18 B/P (MAP) 173/114 121/91 Pulse Ox 96 96 96 O2 Delivery Nasal Cannula Nasal Cannula Nasal Cannula O2 Flow Rate 2.00 2.00 1.00 01/15/22 13:22 Pulse 118 Resp 20 B/P (MAP) 119/72 Progress Progress Note #1: Time: 13:49 Progress Note ABG unremarkable despite her feeling short of breath. ABG may reflect anxiety about her health issues. The patient was breathing about 20 to 22 breaths/min. Her oxygen was turned off was in her nose and she was not aware and she was maintaining oxygen sats in the mid upper 90s 9697%. Progress Note #2: Time: 14:16 Progress Note Patient states that her pain is gone now and she is still concerned about her fast heart rate but is feeling much better. Patient's x-ray shows what is probably atelectasis. She does have some crackles audible on that right base but she also has hemidiaphragm paralysis to explain this. She has no white count, left shift or markers of inflammation elevated. Plan to repeat a troponin and is 1445. We will get a CT angiogram in case she has had a failure of her Xarelto and developed a blood clot as she is still a little bit tachypneic at 22, tachycardic at 115 sinus rhythm. She states she is taking all her medications routinely. She is not a smoker have a lot of heart history. 3 points HEART Pathway Score. Low risk; 0.9-1.7% 30-day MACE. Repeat troponin at 3 hours and if negative, discharge home with outpatient follow-up. 1445 An atypical pneumonia is possible so if the rest of her's testing is negative we will put her out on either azithromycin or doxycycline. She denies using any stimulants that would explain her tachycardia such as caffeine, methamphetamine, cocaine, decongestants, etc. She says she did take her Cardizem. Initial ECG Impression Date: Jan 15, 2022 Initial ECG Impression Time: 11:38 Initial ECG Rate: 115 Initial ECG Rhythm: S.Tach Initial ECG Intervals: QT (505) Initial ECG Impression: Normal, Nonspecific Changes Comment Sinus tachycardia without clinically relevant ST changes. Diagnostic Imaging Diagonstic Imaging: Xray Plain Films/CT/US/NM/MRI: chest Comments [facility], [facility]. [place], [place] NAME: OLESYA NEVES [facility] REC#: [id number] PT STATUS: REG ER : 1965 PHYSICIAN: HUBERT GENTILE MD ADMIT DATE: 01/15/22/ER Draft Date of Exam:01/15/22 CHEST 1 VIEW, AP/PA ONLY Portable erect AP chest at 12:00. INDICATION: Chest pain. The heart is stable in size when compared to the prior exam of 11/01/2021. The left-sided pacemaker seen previously also again evident and no different. The previous exam did note elevation of the right hemidiaphragm with atelectasis/infiltrate near the interface of the diaphragm in the right lung. Those findings are again evident on this study and do not seem to have changed significantly. The right apex and left lung are generally clear. IMPRESSION: There is persistent elevation of the right hemidiaphragm with atelectasis/infiltrate at the interface of the diaphragm and the right lung. When compared to the prior study, there has been no significant change. No new abnormality has developed. Dictated on workstation # [id number] Dict: 01/15/22 1209 Trans: 01/15/22 1213 [id number] Interpreted by: JUNO DE LUNA MD Electronically signed by: Reviewed: Reviewed by Me Diagonstic Imaging: CT (angio) Plain Films/CT/US/NM/MRI: chest Comments [facility] [place], [place] NAME: OLESYA NEVES [facility] REC#: [id number] PT STATUS: REG ER : 1965 PHYSICIAN: HUBERT GENTILE MD ADMIT DATE: 01/15/22/ER Draft Date of Exam:01/15/22 CT ANGIO CHEST W EXAMINATION: CT angiography of the chest. TECHNIQUE: Contrast enhanced thin section helical images were obtained through the chest with intravenous contrast timed for the optimal opacification of the arterial structures per CTA protocol. Post-processing, reconstructions and interpretation of angiographic images of the vessels was performed. 3D MIP reconstructions were performed and reviewed. All CT scans use one or more of the following dose optimizing techniques: Automated exposure control, MA and/or KvP adjustment based on a patient size and exam type, or iterative reconstruction. HISTORY: Dyspnea and chest tightness. COMPARISON: 11/13/2021. FINDINGS: Vascular: No filling defects within the pulmonary arteries. Thoracic aorta is normal in caliber. Thyroid: The thyroid is normal. Mediastinum: Heart size is normal without significant pericardial effusion. No suspicious lymphadenopathy. Lungs and airways: Atelectasis or consolidation within the right middle and lower lobes. No pleural effusion or pneumothorax. There are left lower lobe pulmonary nodules measuring up to 0.5 cm, similar to 11/13/2021. The airways are normal. Upper abdomen: The subphrenic structures are normal. Musculoskeletal: Degenerative changes of the spine without suspicious osseous lesion or compression fracture. IMPRESSION: 1. No findings of pulmonary embolus. 2. Atelectasis or consolidation seen within the right middle and lower lobes. Dictated on workstation # [id number] Dict: 01/15/22 1453 Trans: 01/15/22 1505 [id number] Interpreted by: YECENIA BROWN DO Electronically signed by: Reviewed: Reviewed by Me Departure Impression Primary Impression: Pneumonitis Additional Impression: Chest pain Qualified Codes: R07.9 - Chest pain, unspecified Disposition: 01 HOME, SELF-CARE Condition: Stable Departure-Patient Inst. Decision time for Depature: 16:34 Referrals: JIMY BENNETT MD (PCP/Family) Primary Care Physician ERIKA RUVALCABA MD Patient Instructions: Pneumonitis (DC), Chest Pain (DC) Add. Discharge Instructions: There is no clear pneumonia on your chest x-ray but since you are still having a fast heart rate and some shortness of air we will put you on an antibiotic that would cover atypical walking pneumonia as. Doxycycline 1 capsule twice a day for 10 days. Stay out of the sun and wear wide brim hats and sunscreen while you are on this antibiotic. Drink plenty of fluids. Call Dr. Ruvalcaba and make a follow-up appointment by next week for further outpatient evaluation of your heart. Return to the ER for significantly worsening symptoms. All discharge instructions reviewed with patient and/or family. Voiced understanding. Scripts Hydrocodone/Acetaminophen (Hydrocodone-Acetamin 7.5-325) 7.5 Mg-325 Mg Tablet 1 EACH PO Q6H PRN for PAIN-BREAKTHROUGH, #10 TAB 0 Refills Prov: HUBERT GENTILE 01/15/22 Doxycycline Hyclate (Doxycycline Hyclate) 100 Mg Tablet 100 MG PO BID for 10 Days, #20 TAB 0 Refills Prov: HUBERT GENTILE 01/15/22 Copy Copies To 1: ERIKA RUVALCABA MD, TITUS J Jan 15, 2022 12:07
--- NOTE | 2022-01-15 12:14 | Diagnostic Imaging Report ---
Portable erect AP chest at 12:00. INDICATION: Chest pain. The heart is stable in size when compared to the prior exam of 11/01/2021. The left-sided pacemaker seen previously also again evident and no different. The previous exam did note elevation of the right hemidiaphragm with atelectasis/infiltrate near the interface of the diaphragm in the right lung. Those findings are again evident on this study and do not seem to have changed significantly. The right apex and left lung are generally clear. IMPRESSION: There is persistent elevation of the right hemidiaphragm with atelectasis/infiltrate at the interface of the diaphragm and the right lung. When compared to the prior study, there has been no significant change. No new abnormality has developed. Dictated by: Dictated on workstation # [id number]
[2022-01-15] MEDS ORDERED: NITROGLYCERIN 0.4 MG SL TABS BTL 25'S SL PRN (12:15)
[2022-01-15 12:48] LABS: ABG BASE EXCESS -2.8 MMOL/L (-2.5-2.5); ABG OXYGEN SATURATION 98 % (94-100); ABG PCO2 34 MMHG (35-45); ABG PH 7.41 (7.37-7.43); ABG PO2 83 MMHG (79-93); ABG TCO2 22.2 MMOL/L (21.0-31.0)
[2022-01-15 12:50] LABS: ALLENS TEST YES-POS; INSPIRED O2 2; VENTILATOR NO
[2022-01-15] MEDS ORDERED: HOLD METFORMIN - RECEIVED CONTRAST 20 ML VIAL IV SCH (14:30)
[2022-01-15] MEDS ORDERED: IOHEXOL 350 MG/ML 100 ML (OMNIPAQUE 350) VIAL IV ONE (14:30)
[2022-01-15] MEDS ORDERED: NS 100 ML (IVPB) BAG IV ONE (14:30)
[2022-01-15] MEDS ORDERED: CATHETER FLUSH 10 ML SYR IV PRN (14:30)
[2022-01-15 14:53] LABS: BILIRUBIN,URINE NEGATIVE (NEGATIVE); CLARITY,URINE CLEAR; COLOR,URINE YELLOW; GLUCOSE, URINE (UA) NEGATIVE (NEGATIVE); KETONES,URINE NEGATIVE (NEGATIVE); LEUKOCYTE ESTERASE ,URINE NEGATIVE (NEGATIVE); NITRITE,URINE NEGATIVE (NEGATIVE); PH,URINE 5.5 (5-9); PROTEIN,URINE NEGATIVE (NEGATIVE)
--- NOTE | 2022-01-15 15:05 | Diagnostic Imaging Report ---
EXAMINATION: CT angiography of the chest. TECHNIQUE: Contrast enhanced thin section helical images were obtained through the chest with intravenous contrast timed for the optimal opacification of the arterial structures per CTA protocol. Post-processing, reconstructions and interpretation of angiographic images of the vessels was performed. 3D MIP reconstructions were performed and reviewed. All CT scans use one or more of the following dose optimizing techniques: Automated exposure control, MA and/or KvP adjustment based on a patient size and exam type, or iterative reconstruction. HISTORY: Dyspnea and chest tightness. COMPARISON: 11/13/2021. FINDINGS: Vascular: No filling defects within the pulmonary arteries. Thoracic aorta is normal in caliber. Thyroid: The thyroid is normal. Mediastinum: Heart size is normal without significant pericardial effusion. No suspicious lymphadenopathy. Lungs and airways: Atelectasis or consolidation within the right middle and lower lobes. No pleural effusion or pneumothorax. There are left lower lobe pulmonary nodules measuring up to 0.5 cm, similar to 11/13/2021. The airways are normal. Upper abdomen: The subphrenic structures are normal. Musculoskeletal: Degenerative changes of the spine without suspicious osseous lesion or compression fracture. IMPRESSION: 1. No findings of pulmonary embolus. 2. Atelectasis or consolidation seen within the right middle and lower lobes. Dictated by: Dictated on workstation # [id number]
[2022-01-15 15:15] LABS: AMPHETAMINE SCREEN, URINE NEGATIVE (NEGATIVE); BARBITURATE SCREEN URINE NEGATIVE (NEGATIVE); BENZODIAZEPINES SCREEN URINE NEGATIVE (NEGATIVE); CANNABINOID SCREEN, URINE NEGATIVE (NEGATIVE); COCAINE SCREEN URINE NEGATIVE (NEGATIVE); METHADONE STAT NEGATIVE (NEGATIVE); OPIATE SCREEN URINE NEGATIVE (NEGATIVE); OXYCODONE STAT NEGATIVE (NEGATIVE); PROPOXYPHENE STAT NEGATIVE (NEGATIVE); TRICYCLIC ANTIDEPRESSANTS SCRE NEGATIVE (NEGATIVE)
[2022-01-15 15:18] LABS: AMORPHOUS SEDIMENT,UR RARE AMOR URATES /LPF; BACTERIA,URINE NEGATIVE /HPF; CALCIUM OXALATE CRYSTALS,UR RARE /LPF; RBC,URINE 25-50 /HPF; WBC,URINE 0-2 /HPF
[2022-01-15] MEDS ORDERED: DOXY100T2 PO (16:50)
[2022-01-15] MEDS ORDERED: ACHD5005 PO (16:50)
[2022-01-15] MEDS ORDERED: HYDR-3817 PO (17:50)
[2022-01-17] MEDS ORDERED: DILT-27 PO (12:53)
== END 2022-01-15 17:40 | disposition home or self-care (01) ==
LOC: EDUNIT# 11:23 → ER 11:24
DX: J18.9 Pneumonia, unspecified organism (principal); I10 Essential (primary) hypertension; Z79.899 Other long term (current) drug therapy; Z20.822 Contact with and (suspected) exposure to COVID-19; Z28.310 Unvaccinated for COVID-19
CPT/HCPCS: 36415; 71045; 71275; 80053; 80306; 81000; 82805; 83735; 83874; 83880; 84484; 85025; 85610; 85730; 87636; 93005; 93041

== ENCOUNTER 2022-01-16 09:17 | Inpatient (IN) | payer BC ==
[2022-01-16] VITALS (9 sets, daily range): BP systolic 113–157; BP diastolic 85–128
[~2022-01-16] VITALS: Ht 160 cm; Wt 92.8 kg
[~2022-01-16 09:17] MED LIST changes: +DOXY100T2 PO
[2022-01-16 10:29] LABS: BASOPHILS % (AUTO) 0 % (0-10); EOSINOPHILS # (AUTO) 0.2 10^3/uL (0.0-0.3); EOSINOPHILS % (AUTO) 2 % (0-10); HEMATOCRIT 44 % (35-52); LYMPHOCYTES # (AUTO) 2.6 10^3/uL (1.0-4.0); LYMPHOCYTES % (AUTO) 30 % (12-44); MEAN CORPUSCULAR HEMOGLOBIN 29 pg (25-34); MEAN CORPUSCULAR HGB CONC 34 g/dL (32-36); MEAN CORPUSCULAR VOLUME 86 fL (80-99); MEAN PLATELET VOLUME 10.7 fL (9.0-12.2); MONOCYTES # (AUTO) 0.5 10^3/uL (0.0-1.0); MONOCYTES % (AUTO) 6 % (0-12); NEUTROPHILS # (AUTO) 5.2 10^3/uL (1.8-7.8); NEUTROPHILS % (AUTO) 61 % (42-75); PLATELET COUNT 287 10^3/uL (130-400); WHITE BLOOD COUNT 8.5 10^3/uL (4.3-11.0)
[2022-01-16 10:37] LABS: ALBUMIN 4.4 GM/DL (3.2-4.5); POTASSIUM 3.9 MMOL/L (3.6-5.0)
[2022-01-16 10:38] LABS: CALCIUM 10.3 MG/DL (8.5-10.1)
[2022-01-16 10:40] LABS: TOTAL PROTEIN 7.3 GM/DL (6.4-8.2)
[2022-01-16 10:41] LABS: BILIRUBIN,TOTAL 0.5 MG/DL (0.1-1.0)
[2022-01-16 10:43] LABS: CREATININE SERUM 0.83 MG/DL (0.60-1.30)
[2022-01-16] MEDS ORDERED: LACTATED RINGERS 1,000 ML IV ONE (10:45)
[2022-01-16 10:46] LABS: MAGNESIUM 1.9 MG/DL (1.6-2.4)
[2022-01-16 10:50] LABS: INR 1.7 (0.8-1.4); PROTHROMBIN TIME PATIENT 20.2 SEC (12.2-14.7)
--- NOTE | 2022-01-16 10:56 | Diagnostic Imaging Report ---
Indication: Tachycardia and chest pressure. Time of Exam: 10:42 AM Correlation is made with prior chest from one day earlier. The heart is enlarged but stable. Cardiac pacemaker remains in place. Right hemidiaphragm remains elevated. There is discoid atelectasis in the right base. Otherwise lungs are clear. No effusion or pneumothorax is identified. IMPRESSION: Stable chest since yesterday with continued right hemidiaphragmatic elevation and right basilar subsegmental atelectasis. Dictated by: Dictated on workstation # [id number]
--- NOTE | 2022-01-16 12:06 | ED General ---
General Chief Complaint: Cardiac/General Problems Stated Complaint: HIGH HR Nursing Triage Note: PT AMBULATE TO ROOM 03 WITH C/O TACHYCARDIA AND CHEST PRESSURE. PT REPORTS BEING SEEN IN THIS ED YESTERDAY FOR SAME C/O AND DISCHARGED HOME. 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 Source of Information: Patient, Old Records Exam Limitations: No Limitations History of Present Illness Date Seen by Provider: Jan 16, 2022 Time Seen by Provider: 09:32 Initial Comments This 56-year-old woman presents to the emergency room with complaints of tachycardia and chest tightness or pressure since yesterday. She was seen in the emergency room last night and received a thorough work-up including CT angiogram of the chest. She was started on antibiotics for suspicion of pulmonary infection. 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 She has had cardiac ablations x4 for atrial flutter and atrial fibrillation. She was admitted here in October and was cardioverted at that time. She appears to be in atrial flutter with RVR during initial assessment. She has a pacemaker. Dr. Nunn is her primary care provider. Dr. Jones is her form building supervisor. Dr. Ruvalcaba is her chicken cutter. Allergies and Home Medications Allergies Coded Allergies: Latex, Natural Rubber (Unverified Allergy, Intermediate, Shortness of Breath, 09/27/20) Patient Home Medication List Home Medication List Reviewed: Yes Albuterol Sulfate (Albuterol Sulfate) 1.25 Mg/3 Ml Vial.neb, 3 ML NEB Q8H PRN for SHORTNESS OF BREATH Prescribed by: ELISE DUDLEY on 10/16/21 0904 Amiodarone HCl (Amiodarone HCl) 200 Mg Tablet, 200 MG PO BID Prescribed by: ELISE DUDLEY on 10/16/21 1236 Amoxicillin/Potassium Clav (Augmentin 500-125 Tablet) 500 Mg-125 Mg Tablet, 1 EACH PO TID Prescribed by: SOLIS COLLIER on 11/13/21 1321 Azithromycin (Azithromycin) 250 Mg Tablet, 250 MG PO UD Prescribed by: SOLIS COLLIER on 11/13/21 1321 Clonidine HCl (Clonidine HCl) 0.1 Mg Tablet, 0.1 MG PO BID PRN for BLOOD PRESSURE, (Reported) Entered as Reported by: LEOBARDO CARLIN on 08/26/21 1043 Dexlansoprazole (Dexlansoprazole Dr) 60 Mg Cap.dr.bp, 60 MG PO 1700, (Reported) Entered as Reported by: LEOBARDO CARLIN on 10/14/21 1102 Diazepam (Diazepam) 5 Mg Tablet, 5 MG PO BID PRN for ANXIETY, (Reported) Entered as Reported by: LEOBARDO CRALIN on 08/26/21 1043 Diltiazem HCl (Diltiazem 24Hr ER) 120 Mg Cap.er.24h, 120 MG PO DAILY Prescribed by: ELISE DUDLEY on 10/16/21 1236 Doxycycline Hyclate (Doxycycline Hyclate) 100 Mg Tablet, 100 MG PO BID Prescribed by: HUBERT GENTILE on 01/15/22 1650 Fish Oil/Dha/Epa (Fish Oil 1,200 mg Fish Oil) 1 Each Capsule, 1 EACH PO DAILY, (Reported) Entered as Reported by: LEOBARDO CARLIN on 08/26/21 1043 Fluticasone Furoate (Arnuity Ellipta) 100 Mcg Blst.w.dev, 100 MCG IH DAILY, (Reported) Entered as Reported by: LEOBARDO CARLIN on 10/14/21 110 Furosemide (Furosemide) 20 Mg Tablet, 20 MG PO DAILY, (Reported) Entered as Reported by: LEOBARDO CARLIN on 08/26/21 1043 Hydrocodone/Acetaminophen (Hydrocodone-Acetamin 5-325 mg) 5 Mg-325 Mg Tablet, 1 TAB PO Q4H PRN for PAIN-MODERATE (5-7) Prescribed by: SOLIS COLLIER on 11/13/21 1322 Hydrocodone/Acetaminophen (Hydrocodone-Acetamin 7.5-325) 7.5 Mg-325 Mg Tablet, 1 EACH PO Q6H PRN for PAIN-BREAKTHROUGH Prescribed by: HUBERT GENTILE on 01/15/22 1750 Levocetirizine Dihydrochloride (Levocetirizine Dihydrochloride) 5 Mg Tablet, 5 MG PO HS, (Reported) Entered as Reported by: LEOBARDO CARLIN on 10/14/21 1102 Levothyroxine Sodium (Levothyroxine Sodium) 112 Mcg Tablet, 112 MCG PO DAILY, (R eported) Entered as Reported by: LEOBARDO CARLIN on 08/26/21 1043 Metoclopramide HCl (Metoclopramide HCl) 10 Mg Tablet, 10 MG PO QIDACHS, (Reported) Entered as Reported by: LEOBARDO CARLIN on 08/26/21 1043 Ondansetron (Ondansetron Odt) 4 Mg Tab.rapdis, 4 MG PO Q6H PRN for NAUSEA/VOMITING-1ST LINE, (Reported) Entered as Reported by: LEOBARDO CARLIN on 10/14/21 1102 Rivaroxaban (Xarelto) 20 Mg Tablet, 20 MG PO 1700, (Reported) Entered as Reported by: LEOBARDO CARLIN on 10/14/21 1102 Sumatriptan Succinate (Imitrex) 50 Mg Tab, 50 MG PO DAILY PRN for HEADACHE Prescribed by: ELISE DUDLEY on 10/16/21 0904 Vitamin E Mixed (Vitamin E) 100 Unit Tablet, 100 UNIT PO DAILY, (Reported) Entered as Reported by: LEOBARDO CARLIN on 08/26/21 104 [Vit C/D3/Zinc] , 1 EA PO DAILY, (Reported) Entered as Reported by: LEOBARDO CARLIN on 10/14/21 1102 Discontinued Medications Hydrocodone/Acetaminophen (Hydrocodone-Acetamin 5-325 mg) 5 Mg-325 Mg Tablet, 1 TAB PO Q6H PRN for PAIN-MODERATE (5-7) Prescribed by: HUBERT GENTILE on 01/15/22 1651 Review of Systems Review of Systems Constitutional: no symptoms reported EENTM: no symptoms reported Respiratory: see HPI Cardiovascular: see HPI Gastrointestinal: no symptoms reported Genitourinary: no symptoms reported Musculoskeletal: no symptoms reported Skin: no symptoms reported Psychiatric/Neurological: No Symptoms Reported Hematologic/Lymphatic: No Symptoms Reported Immunological/Allergic: no symptoms reported Past Vamwkai-Owhoag-Enwiwq Hx Patient Social History Tobacco Use?: No Smoking Status: Never a Smoker Smokeless Tobacco Frequency: Never a User Use of E-Cig and/or Vaping dev: No Use of E-Cig and/or Vaping Shen: Never a User Substance use?: No Alcohol Use?: Yes Alcohol Frequency: Once in a while Pt feels they are or have been: No Immunizations Up To Date Tetanus Booster (TDap): Less than 5yrs PED Vaccines UTD: Yes First/Initial COVID19 Vaccinat: NONE Second COVID19 Vaccination Arley: NONE\\ Third COVID19 Vaccination Date: NONE Seasonal Allergies Seasonal Allergies: Yes Past Medical History Surgery/Hospitalization HX: pacemaker, CHF, A-fib, Cardiac cath, 3 cardiac ablasions, hysterectomy, appendectomy, tonsillectomy, titi, hiatal hernia Surgeries: Yes (D&C'S, LAPAROSCOPY, UVULA REMOVED, hiatal H. 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, 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, Menopausal Genitourinary: No (BLADDER SLING) Gastrointestinal: Yes Liver Disease/Jaundice, Reina's Esophagus, Polyps, Hiatal Hernia Musculoskeletal: Yes Chronic Back Pain Endocrine: Yes Hypothyroidsim HEENT: No Loss of Vision: Denies Hearing Impairment: Denies Cancer: No Psychosocial: Yes Depression Integumentary: Yes Eczema, Psoriasis Blood Disorders: No Family Medical History Colon cancer Noncontributory Physical Exam Vital Signs Vital Signs - First Documented 01/16/22 09:21 Temp 36.0 Pulse 118 Resp 19 B/P (MAP) 157/113 (128) O2 Delivery Room Air Capillary Refill : Less Than 3 Seconds Height, Weight, BMI Height: '" Weight: lbs. oz. 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 stock II-XII Norm as Tested Skin: Normal Color, Warm/Dry Progress/Results/Core Measures Suspected Sepsis SIRS Temperature: Pulse: 118 Respiratory Rate: 19 Laboratory Tests 01/16/22 09:38: White Blood Count 8.5 Blood Pressure 157 /113 Mean: 128 Laboratory Tests 01/16/22 09:38: Creatinine 0.83, INR Comment 1.7H, Platelet Count 287, Total Bilirubin 0.5 Results/Orders Lab Results Laboratory Tests Test 01/16/22 09:38 Range/Units White Blood Count 8.5 4.3-11.0 10^3/uL Red Blood Count 5.11 3.80-5.11 10^6/uL Hemoglobin 15.0 11.5-16.0 g/dL Hematocrit 44 35-52 % Mean Corpuscular Volume 86 80-99 fL Mean Corpuscular Hemoglobin 29 25-34 pg Mean Corpuscular Hemoglobin Concent 34 32-36 g/dL Red Cell Distribution Width 13.4 10.0-14.5 % Platelet Count 287 130-400 10^3/uL Mean Platelet Volume 10.7 9.0-12.2 fL Immature Granulocyte % (Auto) 0 % Neutrophils (%) (Auto) 61 42-75 % Lymphocytes (%) (Auto) 30 12-44 % Monocytes (%) (Auto) 6 0-12 % Eosinophils (%) (Auto) 2 0-10 % Basophils (%) (Auto) 0 0-10 % Neutrophils # (Auto) 5.2 1.8-7.8 10^3/uL Lymphocytes # (Auto) 2.6 1.0-4.0 10^3/uL Monocytes # (Auto) 0.5 0.0-1.0 10^3/uL Eosinophils # (Auto) 0.2 0.0-0.3 10^3/uL Basophils # (Auto) 0.0 0.0-0.1 10^3/uL Immature Granulocyte # (Auto) 0.0 0.0-0.1 10^3/uL Prothrombin Time 20.2 H 12.2-14.7 SEC INR Comment 1.7 H 0.8-1.4 Activated Partial Thromboplast Time 40 H 24-35 SEC Sodium Level 142 135-145 MMOL/L Potassium Level 3.9 3.6-5.0 MMOL/L Chloride Level 106 98-107 MMOL/L Carbon Dioxide Level 23 21-32 MMOL/L Anion Gap 13 5-14 MMOL/L Blood Urea Nitrogen 12 7-18 MG/DL Creatinine 0.83 0.60-1.30 MG/DL Estimat Glomerular Filtration Rate 84 BUN/Creatinine Ratio 14 Glucose Level 117 H 70-105 MG/DL Calcium Level 10.3 H 8.5-10.1 MG/DL Corrected Calcium 10.0 8.5-10.1 MG/DL Magnesium Level 1.9 1.6-2.4 MG/DL Total Bilirubin 0.5 0.1-1.0 MG/DL Aspartate Amino Transf (AST/SGOT) 25 5-34 U/L Alanine Aminotransferase (ALT/SGPT) 44 0-55 U/L Alkaline Phosphatase 92 40-136 U/L Myoglobin 28.3 10.0-92.0 NG/ML Troponin I < 0.028 <0.028 NG/ML C-Reactive Protein High Sensitivity 0.20 0.00-0.50 MG/DL B-Type Natriuretic Peptide 84.8 <100.0 PG/ML Total Protein 7.3 6.4-8.2 GM/DL Albumin 4.4 3.2-4.5 GM/DL Procalcitonin 0.03 <0.10 NG/ML Thyroid Stimulating Hormone (TSH) 3.24 0.35-4.94 UIU/ML Free Thyroxine 1.02 0.70-1.48 NG/DL My Orders Orders - KINGSLEY CURTIS MD Ekg Tracing (01/16/22 09:32) Monitor-Rhythm Ecg Trace Only (01/16/22 09:32) Cbc With Automated Diff (01/16/22 10:20) Magnesium (01/16/22 10:20) Chest 1 View, Ap/Pa Only (01/16/22 10:20) Comprehensive Metabolic Panel (01/16/22 10:20) Myoglobin Serum (01/16/22 10:20) Protime With Inr (01/16/22 10:20) Partial Thromboplastin Time (01/16/22 10:20) O2 (01/16/22 10:20) Lipid Panel (01/17/22 06:00) Ed Iv/Invasive Line Start (01/16/22 10:20) Troponin I Ayden (01/16/22 10:20) Bnp Ayden (01/16/22 10:30) Hs C Reactive Protein (01/16/22 10:30) Procalcitonin (Pct) (01/16/22 10:30) Lactated Ringers (Lr 1000 Ml Iv Solution (01/16/22 10:45) Thyroid Stimulating Hormone (01/16/22 12:12) Free T4 (Free Thyroxine) (01/16/22 12:12) Diltiazem Drip Pre-Mix (Cardizem Drip Pr (01/16/22 12:45) Ed Admission (Communication) (01/16/22 12:43) Medications Given in ED Current Medications Medications Dose Ordered Sig/Giselle Route Start Time Stop Time Status Last Admin Dose Admin Lactated Ringer's 1,000 ml @ 0 mls/hr Q0M ONCE IV 01/16/22 10:45 01/16/22 10:46 DC 01/16/22 10:45 999 MLS/HR Vital Signs/I&O 01/16/22 09:21 Temp 36.0 Pulse 118 Resp 19 B/P (MAP) 157/113 (128) O2 Delivery Room Air Capillary Refill : Less Than 3 Seconds Blood Pressure Mean: 128 Progress Note : Time: 12:45 Progress Note Patient's heart rate has remained consistently regular around 120 bpm despite receiving a liter of IV fluid. This is suspicious for atrial flutter. I discussed with Dr. Mcdonnell who recommended transfer to the facility where she receives electrophysiology services and ablation. Most recently this was [facility]. Patient has declined transfer to a facility with electrophysiology and ablation capability. She had some negative experiences previously and would like to await referral to a different electrophysiology service. I offered cardioversion attempts in the emergency room which she is notably uncomfortable with. She has never had cardioversion attempted in the emergency room. She p refers consultation with a chicken cutter and cardioversion in the inpatient setting. This is certainly reasonable given her complicated cardiac history and presence of pacemaker. I have discussed with Dr. Mcdonnell who also is agreeable. Patient will be started on a Cardizem drip and will undergo electrocardioversion tomorrow if she does not convert on her own. We will continue Xarelto which she has been taking continuously without missing doses for the past 3 weeks. Admission orders are being cued by Dr. Orlando. ECG Initial ECG Impression Date: Jan 16, 2022 Initial ECG Impression Time: 09:41 Initial ECG Rate: 121 Comment Likely atrial flutter with RVR. No ST elevation or diagnostic depression. VT interval of 234 ms. No axis deviation Diagnostic Imaging Diagonstic Imaging: Xray Plain Films/CT/US/NM/MRI: chest Comments NAME: OLESYA NEVES [facility] REC#: [id number] PT STATUS: REG ER : 1965 PHYSICIAN: KINGSLEY CURTIS MD ADMIT DATE: 01/16/22/ER Draft Date of Exam:01/16/22 CHEST 1 VIEW, AP/PA ONLY Indication: Tachycardia and chest pressure. Time of Exam: 10:42 AM Correlation is made with prior chest from one day earlier. The heart is enlarged but stable. Cardiac pacemaker remains in place. Right hemidiaphragm remains elevated. There is discoid atelectasis in the right base. Otherwise lungs are clear. No effusion or pneumothorax is identified. IMPRESSION: Stable chest since yesterday with continued right hemidiaphragmatic elevation and right basilar subsegmental atelectasis. Dictated on workstation # [id number] Dict: 01/16/22 1050 Trans: 01/16/22 1055 [facility] [id number] Interpreted by: CLAUDINE CHEN MD Departure Communication (Admissions) Time/Spoke to Admitting Phy: 12:40 Dr. Orlando Time/Spoke to Consulting Phy: 12:05 Dr. Mcdonnell Impression Primary Impression: Atrial flutter with rapid ventricular response Disposition: ADMITTED INPATIENT Condition: Stable Admissions Decision to Admit Reason: Admit from ER (General) Decision to Admit/Date: Jan 16, 2022 Time/Decision to Admit Time: 12:05 Departure-Patient Inst. Referrals: JIMY NUNN MD (PCP/Family) Primary Care Physician Copy Copies To 1: ERIKA RUVALCABA MD Copies To 2: JIMY NUNN MD, JOSHUA T MD Jan 16, 2022 12:05
[2022-01-16] MEDS: dilTIAZem DRIP PRE-MIX 125 ML IV SCH ×3 (12:46→23:35)
[2022-01-16 12:57] LABS: FREE T4 (FREE THYROXINE) 1.02 NG/DL (0.70-1.48)
[2022-01-16] MEDS ORDERED: polyethylene glycoL POWDER 17 GM (MIRALAX) PACK PO PRN (14:45)
[2022-01-16] MEDS ORDERED: DIAZEPAM 5 MG (VALIUM) TABLET PO PRN (14:45)
[2022-01-16] MEDS ORDERED: MELATONIN 3 MG TABLET PO PRN (14:45)
[2022-01-16] MEDS ORDERED: ONDANSETRON 4 MG (ZOFRAN) ORAL DISSOLVE TAB PO PRN (14:45)
[2022-01-16] MEDS ORDERED: diphenhydrAMINE 25 MG TAB (BENADRYL) PO PRN (14:45)
[2022-01-16] MEDS ORDERED: ACETAMINOPHEN 325 MG TABLET PO PRN (14:45)
[2022-01-16] MEDS ORDERED: ANTACID SUSP 30 ML UDC (MYLANTA) PO PRN (14:45)
--- NOTE | 2022-01-16 15:04 | Tele-ICU Consult ---
History of Present Illness History of Present Illness Date Seen by Provider: Jan 16, 2022 Time Seen by Provider: 15:03 Date of Admission (Tele-ICU Physician , consultation) Available chart/ vitals / labs / Images reviewed H&P is from ER notes Patient's information available about PMH, Shx, Fhx allergy reviewed in EMR. ROS as per chart and RN report Now in ICU, hemodynamically stable on cardizewm gtt Video assessment done using teleICU camera, rest of exam as per RN Discussed with RN. Consultants: madan Hospital course: 01/16) 56 y/o female admitted in ED with c/o of elevated heart rate & chest pressure. DX: Atrial flutter RVR. 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 Discussed with RN to reach out if any questions or concerns A total of 20 minutes of critical care time was devoted to this patient today, required to treat and/or prevent further deterioration of critical care condition ( as above ) . Allergies and Home Medications Allergies Coded Allergies: Latex, Natural Rubber (Unverified Allergy, Intermediate, Shortness of Breath, 09/27/20) Home Medications Albuterol Sulfate 1.25 Mg/3 Ml Vial.neb, 3 ML NEB Q8H PRN for SHORTNESS OF BREATH Prescribed by: ELISE DUDLEY on 10/16/21 0904 Amiodarone HCl 200 Mg Tablet, 200 MG PO BID Prescribed by: ELISE DUDLEY on 10/16/21 1236 Amoxicillin/Potassium Clav 500 Mg-125 Mg Tablet, 1 EACH PO TID Prescribed by: SOLIS COLLIER on 11/13/21 1321 Azithromycin 250 Mg Tablet, 250 MG PO UD TAKE 2 TABLETS ON DAY ONE THEN TAKE 1 TABLET DAILY FOR FOUR MORE DAYS Prescribed by: SOLIS COLLIER on 11/13/21 1321 Clonidine HCl 0.1 Mg Tablet, 0.1 MG PO BID PRN for BLOOD PRESSURE, (Reported) Dexlansoprazole 60 Mg bp, 60 MG PO 1700, (Reported) Diazepam 5 Mg Tablet, 5 MG PO BID PRN for ANXIETY, (Reported) Diltiazem HCl 120 Mg Cap.er.24h, 120 MG PO DAILY Prescribed by: ELISE DUDLEY on 10/16/21 1236 Doxycycline Hyclate 100 Mg Tablet, 100 MG PO BID Prescribed by: HUBERT GENTILE on 01/15/22 1650 Fish Oil/Dha/Epa 1 Each Capsule, 1 EACH PO DAILY, (Reported) Fluticasone Furoate 100 Mcg Blst.w.dev, 100 MCG IH DAILY, (Reported) Furosemide 20 Mg Tablet, 20 MG PO DAILY, (Reported) Hydrocodone/Acetaminophen 5 Mg-325 Mg Tablet, 1 TAB PO Q4H PRN for PAIN-MODERATE (5-7) Prescribed by: SOLIS COLLIRE on 11/13/21 1322 Hydrocodone/Acetaminophen 7.5 Mg-325 Mg Tablet, 1 EACH PO Q6H PRN for PAIN- BREAKTHROUGH Prescribed by: HUBERT GENTILE on 01/15/22 1750 Levocetirizine Dihydrochloride 5 Mg Tablet, 5 MG PO HS, (Reported) Levothyroxine Sodium 112 Mcg Tablet, 112 MCG PO DAILY, (Reported) Metoclopramide HCl 10 Mg Tablet, 10 MG PO QIDACHS, (Reported) Ondansetron 4 Mg Tab.rapdis, 4 MG PO Q6H PRN for NAUSEA/VOMITING-1ST LINE, (Reported) Rivaroxaban 20 Mg Tablet, 20 MG PO 1700, (Reported) Sumatriptan Succinate 50 Mg Tab, 50 MG PO DAILY PRN for HEADACHE Prescribed by: ELISE DUDLEY on 10/16/21 0904 Vitamin E Mixed 100 Unit Tablet, 100 UNIT PO DAILY, (Reported) [Vit C/D3/Zinc] , 1 EA PO DAILY, (Reported) Past Medical/Social/Family Hx Patient Social History Tobacco Use?: No Smoking Status: Never a Smoker Smokeless Tobacco Frequency: Never a User Use of E-Cig and/or Vaping dev: No E-Cig and/or Vaping Freq: Never a User Substance use?: No Alcohol Use?: Yes Alcohol Frequency: Once in a while Pt stated abuse/neglect: No Immunizations Up To Date First/Initial COVID19 Vaccinat: NONE Second COVID19 Vaccination Arley: NONE\\ Tetanus Booster (TDap): Less Than 5 Years Hepatitis A: Yes Hepatitis B: Yes TB Skin Test: None Current Status Advance Directives: No Communicates: Verbally Primary Language: Vietnamese Preferred Spoken Language: Vietnamese Is interpretation needed?: No Implanted or Applied Medical D: Implantable cardioverter Past Medical History Hypertension Hyperlipidemia Atrial fibrillation Sick sinus syndrome status post pacemaker Hiatal hernia status post surgical repair Obesity Family Medical History Family Hx: Noncontributory Review of Systems Constitutional: see HPI Focused Exam Height, Weight, BMI Height: '" Weight: lbs. oz. kg; 35.00 BMI Method: Exam Exam Patient acknowledged, consented, and participated in this virtual visit which was conducted using real time audio/video Vital Signs Date Time Temp Pulse Resp B/P (MAP) Pulse Ox O2 Delivery O2 Flow Rate FiO2 01/16/22 09:21 36.0 118 19 157/113 (128) Room Air Height & Weight Height: '" Weight: lbs. oz. 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 ROS as per chart and RN report Now in ICU, hemodynamically stable on cardizewm gtt Video assessment done using teleICU camera, rest of exam as per RN Discussed with RN. Consultants: cards Hospital course: 01/16) 56 y/o female admitted in ED with c/o of elevated heart rate & chest pressure. DX: Atrial flutter RVR. 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 Discussed with RN to reach out if any questions or concerns A total of 20 minutes of critical care time was devoted to this patient today, required to treat and/or prevent further deterioration of critical care condition ( as above ) . ALLIE GUZMAN MD Jan 16, 2022 15:04
--- NOTE | 2022-01-16 15:27 | Consultation-Cardiology ---
HPI-Cardiology Cardiology Consultation: Date of Consultation 01/16/22 Time Seen by a Provider: 15:45 Date of Admission Attending Physician Heriberto Nunn MD Admitting Physician Admitting Physician: Helen Orlando MD Attending Physician: Helen Orlando MD Consulting Physician Melissa Mcdonnell MD Primary Manager Mechanical Maintenance: Dr. Ruvalcaba HPI: Chief Complaint: A-FIB/flutter with RVR Ms. Rondon is a 56 yr old female admitted to ICU 8 from the ED with a-fib /flutter with RVR. She reports she has had increasing dyspnea and palpitations for the last couple days. She reports progressively feeling worse today with elevated HR and high blood pressure prompting her to come to the ED. She reports she has a KRAFT. She denies any syncope or near syncope. No c/o LE swelling. She reports c/o chest tightness/pressure. She reports she on on Xa relto for stroke prophylaxis and does not believe she has missed a dose She states she is to be on Cardizem CD twice a day, but has missed several morning doses in the recent past. Review of Systems-Cardiology Review of Systems Constitutional: No chills, No fever; lightheadedness, malaise Eyes: No vision change Ears/Nose/Throat: No epistaxis, No recent hearing loss Respiratory: As described under HPI Cardiovascular: As described under HPI Gastrointestinal: No constipation, No diarrhea, No nausea, No vomiting Genitourinary: No dysuria, No hematuria Musculoskeletal: no symptoms reported Skin: No rash on exposed areas, No ulcerations on exposed areas Psychiatric/Neurological: anxiety; No depression, No seizure, No focal weakness, No syncope Hematologic: No bleeding abnormalities UJX-Nlczvu-Atxojq Hx Patient Social History Smoking Status: Never a Smoker 2nd Hand Smoke Exposure: No Have you traveled recently?: No Alcohol Use?: Yes Pt feels they are or have been: No Immunizations Up To Date Tetanus Booster (TDap): Less than 5yrs Date of Influenza Vaccine: May 04, 2020 Past Medical History PMH As described under Assessment. Family Medical History Family Medical History: No reported family h/o CAD. Family History: Colon cancer Allergies and Home Medications Allergies Coded Allergies: Latex, Natural Rubber (Unverified Allergy, Intermediate, Shortness of Breath, 09/27/20) Patient Home Medication List Albuterol Sulfate (Albuterol Sulfate) 1.25 Mg/3 Ml Vial.neb, 3 ML NEB Q8H PRN for SHORTNESS OF BREATH Prescribed by: ELISE DUDLEY on 10/16/21 0904 Amiodarone HCl (Amiodarone HCl) 200 Mg Tablet, 200 MG PO BID Prescribed by: ELISE DUDLEY on 10/16/21 1236 Amoxicillin/Potassium Clav (Augmentin 500-125 Tablet) 500 Mg-125 Mg Tablet, 1 EACH PO TID Prescribed by: SOLIS COLLIER on 11/13/21 1321 Azithromycin (Azithromycin) 250 Mg Tablet, 250 MG PO UD Prescribed by: SOLIS COLLIER on 11/13/21 1321 Clonidine HCl (Clonidine HCl) 0.1 Mg Tablet, 0.1 MG PO BID PRN for BLOOD PRESSURE, (Reported) Entered as Reported by: LEOBARDO CARLIN on 08/26/21 1043 Dexlansoprazole (Dexlansoprazole Dr) 60 Mg Cap.dr.bp, 60 MG PO 1700, (Reported) Entered as Reported by: LEOBARDO CARLIN on 10/14/21 1102 Diazepam (Diazepam) 5 Mg Tablet, 5 MG PO BID PRN for ANXIETY, (Reported) Entered as Reported by: LEOBARDO CARLIN on 08/26/21 1043 Diltiazem HCl (Diltiazem 24Hr ER) 120 Mg Cap.er.24h, 120 MG PO DAILY Prescribed by: ELISE DUDLEY on 10/16/21 1236 Doxycycline Hyclate (Doxycycline Hyclate) 100 Mg Tablet, 100 MG PO BID Prescribed by: HUBERT GENTILE on 01/15/22 1650 Fish Oil/Dha/Epa (Fish Oil 1,200 mg Fish Oil) 1 Each Capsule, 1 EACH PO DAILY, (Reported) Entered as Reported by: LEOBARDO CARLIN on 08/26/21 1043 Fluticasone Furoate (Arnuity Ellipta) 100 Mcg Blst.w.dev, 100 MCG IH DAILY, (Reported) Entered as Reported by: LEOBARDO CARLIN on 10/14/21 1102 Furosemide (Furosemide) 20 Mg Tablet, 20 MG PO DAILY, (Reported) Entered as Reported by: LEOBARDO CARLIN on 08/26/21 1043 Hydrocodone/Acetaminophen (Hydrocodone-Acetamin 5-325 mg) 5 Mg-325 Mg Tablet, 1 TAB PO Q4H PRN for PAIN-MODERATE (5-7) Prescribed by: SOLIS COLLIER on 11/13/21 1322 Hydrocodone/Acetaminophen (Hydrocodone-Acetamin 7.5-325) 7.5 Mg-325 Mg Tablet, 1 EACH PO Q6H PRN for PAIN-BREAKTHROUGH Prescribed by: HUBERT GENTILE on 01/15/22 1750 Levocetirizine Dihydrochloride (Levocetirizine Dihydrochloride) 5 Mg Tablet, 5 MG PO HS, (Reported) Entered as Reported by: LEOBARDO CARLIN on 10/14/21 110 Levothyroxine Sodium (Levothyroxine Sodium) 112 Mcg Tablet, 112 MCG PO DAILY, (Reported) Entered as Reported by: LEOBARDO CARLIN on 08/26/21 1043 Metoclopramide HCl (Metoclopramide HCl) 10 Mg Tablet, 10 MG PO QIDACHS, (Reported) Entered as Reported by: LEOBARDO CARLIN on 08/26/21 1043 Ondansetron (Ondansetron Odt) 4 Mg Tab.rapdis, 4 MG PO Q6H PRN for NAUSEA/VOMITING-1ST LINE, (Reported) Entered as Reported by: LEOBARDO CARLIN on 10/14/21 110 Rivaroxaban (Xarelto) 20 Mg Tablet, 20 MG PO 1700, (Reported) Entered as Reported by: LEOBARDO CARLIN on 10/14/21 1102 Sumatriptan Succinate (Imitrex) 50 Mg Tab, 50 MG PO DAILY PRN for HEADACHE Prescribed by: ELISE DUDLEY on 10/16/21 0904 Vitamin E Mixed (Vitamin E) 100 Unit Tablet, 100 UNIT PO DAILY, (Reported) Entered as Reported by: LEOBARDO CARLIN on 08/26/21 1043 [Vit C/D3/Zinc] , 1 EA PO DAILY, (Reported) Entered as Reported by: LEOBARDO CARLIN on 10/14/21 1102 Discontinued Medications Hydrocodone/Acetaminophen (Hydrocodone-Acetamin 5-325 mg) 5 Mg-325 Mg Tablet, 1 TAB PO Q6H PRN for PAIN-MODERATE (5-7) Prescribed by: HUBERT GENTILE on 01/15/22 1651 Physical Exam-Cardiology Physical Exam Vital Signs/I&O 01/16/22 01/16/22 01/16/22 01/16/22 09:21 14:10 14:21 14:26 Temp 36.0 36.9 Pulse 118 118 121 121 Resp 19 18 18 B/P (MAP) 157/113 (128) 139/87 154/115 (128) Pulse Ox 97 95 O2 Delivery Room Air Room Air Nasal Cannula O2 Flow Rate 2.00 Capillary Refill : Less Than 3 Seconds Constitutional: AAO x 3, well-developed, well-nourished HEENT: PERRL, hearing is well preserved, oral hygience is good Neck: No carotid bruit; carotid pulses are 2 + bilaterally Respiratory: No accessory muscle use, No respiratory distress; chest expansion is symmetric, chest is bilaterally symmetric, other (dyspneic with conversation) Cardiovascular: irregularly irregular, tachycardia Gastrointestinal: No tender; soft, round, audible bowel sounds Extremities: no lower extremity edema bilateral Neurologic/Psychiatric: grossly intact (moves all extremities) Skin: No rash on exposed areas, No ulcerations on exposed areas Data Review Labs Laboratory Tests 01/16/22 09:38: White Blood Count 8.5, Red Blood Count 5.11, Hemoglobin 15.0, Hematocrit 44, Mean Corpuscular Volume 86, Mean Corpuscular Hemoglobin 29, Mean Corpuscular Hemoglobin Concent 34, Red Cell Distribution Width 13.4, Platelet Count 287, Mean Platelet Volume 10.7, Immature Granulocyte % (Auto) 0, Neutrophils (%) (Auto) 61, Lymphocytes (%) (Auto) 30, Monocytes (%) (Auto) 6, Eosinophils (%) (Auto) 2, Basophils (%) (Auto) 0, Neutrophils # (Auto) 5.2, Lymphocytes # (Auto) 2.6, Monocytes # (Auto) 0.5, Eosinophils # (Auto) 0.2, Basophils # (Auto) 0.0, Immature Granulocyte # (Auto) 0.0, Prothrombin Time 20.2H, INR Comment 1.7H, Activated Partial Thromboplast Time 40H, Sodium Level 142, Potassium Level 3.9, Chloride Level 106, Carbon Dioxide Level 23, Anion Gap 13, Blood Urea Nitrogen 12, Creatinine 0.83, Estimat Glomerular Filtration Rate 84, BUN/Creatinine Ratio 14, Glucose Level 117H, Calcium Level 10.3H, Corrected Calcium 10.0, Magnesium Level 1.9, Total Bilirubin 0.5, Aspartate Amino Transf (AST/SGOT) 25, Alanine Aminotransferase (ALT/SGPT) 44, Alkaline Phosphatase 92, Myoglobin 28.3, Troponin I < 0.028, C-Reactive Protein High Sensitivity 0.20, B-Type Natriuretic Peptide 84.8, Total Protein 7.3, Albumin 4.4, Procalcitonin 0.03, Thyroid Stimulating Hormone (TSH) 3.24, Free Thyroxine 1.02 Radiology NAME: OLESYA RONDON [facility] REC#: [id number] PT STATUS: REG ER : 1965 PHYSICIAN: KINGSLEY CURTIS MD ADMIT DATE: 01/16/22/ER Draft Date of Exam:01/16/22 CHEST 1 VIEW, AP/PA ONLY Indication: Tachycardia and chest pressure. Time of Exam: 10:42 AM Correlation is made with prior chest from one day earlier. The heart is enlarged but stable. Cardiac pacemaker remains in place. Right hemidiaphragm remains elevated. There is discoid atelectasis in the right base. Otherwise lungs are clear. No effusion or pneumothorax is identified. IMPRESSION: Stable chest since yesterday with continued right hemidiaphragmatic elevation and right basilar subsegmental atelectasis. Dictated on workstation # [id number] Dict: 01/16/22 1050 Trans: 01/16/22 1055 [facility] [id number] Interpreted by: CLAUDINE CHEN MD Electronically signed by: ECG Impression ECG Comment a-flutter/fib with RVR A/P-Cardiology Assessment/Admission Diagnosis Paroxysmal atrial fibrillation/flutter - History of ablation in the remote past, patient had a total of 3 ablation procedures last procedure was done in 2019, it was an extensive ablation done at that time. - Recurrent P.atrial fibrillation and she was seen by Dr. Ferguson, he had adjusted her pacemaker setting for better detection of the atrial fibrillation - Underwent LENORE with cardioversion in December 05, [address] Ruvalcaba - Patient was intolerant to Multaq and Toprol and Digoxin (per her report) - Evaluated by Dr. Sanon. 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 Was hospitalized for 2 weeks, slow recovery Sinus node dysfunction - history of Medtronic dual-chamber pacemaker, functioning normally. Had it implanted in [place] Generalized fatigue and loss of energy - chronic Chest pain, nonspecific etiology - cardiac catheterization on 12/04/[address] Ruvalcaba showing normal coronaries with normal left ventricular size and function - LENORE done on December 04, [address] Ruvalcaba - showing normal left ventricular size, left atrium is mildly dilated, no clot or thrombus, mild mitral regurgitation History of hiatal hernia, had repair surgery done at [facility] approx 2 months ago. GERD, epigastric pain, loss of appetite - had CT abdomen done in the ER on 03/17/21 showing abnormal wall thickening in the region of the GE junction and prox stomach with multiple prominent enlarged superior mesenteric and paraesophageal lymph nodes most concerning for GE junction or prox gastric malignancy - Had EGD with Dr Valles Hypothyroidism - followed and managed by primary care physician COPD - maintained on bronchodilator. Followed and managed by primary care physician Status post Covid 19 infection in June 2020 - still complaining of some dyspnea and fatigue since that infection Discussion and Recomendations Complex management Recurrent a-fib/flutter despite numerous ablations (as noted above) - Cardizem gtt infusing - rate improved, but not ideal - Amiodarone p.o has been started by medical services - Advise addition of BB, to which she is not agreeable, stating it has not helped her in the past - Advise then addition of Digoxin for rate control, she is not agreeable, stating it has not helped her in the past - Continue Xarelto - she reports no missed doses - advise cardioversion to which she is agreeable - will proceed tomorrow or sooner if indicated - Echocardiogram to eval structure and function Monitor lab closely - replace electrolytes as indicated Non-compliance with medication regimen (only takes Cardizem once a day, rather that BID as she reports it is Rx) BP is not well controlled - she is requesting Amlodipine for BP control Further recs will be based on her hospital course We would like to thank medical services for this consult Clinical Quality Measures AMI/AHF: ASA po Prior to arrival: JONO Duff Jan 16, 2022 15:27
[2022-01-16] MEDS: METOCLOPRAMIDE 10 MG (REGLAN) TAB PO SCH ×2 (15:40→20:25)
[2022-01-16] MEDS ORDERED: amLODIPine 5 MG (NORVASC) TAB PO NR (16:15)
[2022-01-16] MEDS ORDERED: RIVAROXABAN 20 MG TABLET (XARELTO) PO SCH (17:00)
[2022-01-16] MEDS: ONDANSETRON 4 MG/2 ML (SDV) Z0FRAN IV PRN (18:01)
[2022-01-16] MEDS ORDERED: morphine INJ 10 MG/ML 1ML (SYR OR VIAL) IVP PRN (19:00)
--- NOTE | 2022-01-16 19:14 | Consultation-Cardiology ---
HPI-Cardiology Cardiology Consultation: Date of Consultation 01/16/22 Time Seen by a Provider: 18:30 Date of Admission Attending Physician Heriberto Nunn MD Admitting Physician Admitting Physician: Helen Orlando MD Attending Physician: Helen Orlando MD Consulting Physician ANNAMARIE BAUMANN MD, MA, FACP, FACC, FSCAI, CCDS HPI: Chief Complaint: A-FIB/flutter with RVR Ms. Rondon is a 56 yr old female admitted to ICU 8 from the ED with a-fib/flutter with RVR. She reports she has had increasing dyspnea and palpitations for the last couple days. She reports progressively feeling worse today with elevated HR and high blood pressure prompting her to come to the ED. She reports she has a KRAFT. She also reports intermittent, pleuritic cp. She denies any syncope or near syncope. No c/o LE swelling. She reports c/o chest tightness/pressure. She reports she on on Xarelto for stroke prophylaxis and does not believe she has missed a dose She states she is to be on Cardizem CD twice a day, but has missed several morning doses in the recent past. Review of Systems-Cardiology Review of Systems Constitutional: No chills, No fever; lightheadedness, malaise Eyes: No vision change Ears/Nose/Throat: No epistaxis, No recent hearing loss Respiratory: As described under HPI Cardiovascular: As described under HPI Gastrointestinal: No constipation, No diarrhea, No nausea, No vomiting Genitourinary: No dysuria, No hematuria Musculoskeletal: no symptoms reported Skin: No rash on exposed areas, No ulcerations on exposed areas Psychiatric/Neurological: anxiety; No depression, No seizure, No focal weakness, No syncope Hematologic: No bleeding abnormalities JUZ-Rilptv-Sdhlrg Hx Patient Social History Smoking Status: Never a Smoker 2nd Hand Smoke Exposure: No Have you traveled recently?: No Alcohol Use?: Yes Pt feels they are or have been: No Immunizations Up To Date Tetanus Booster (TDap): Less than 5yrs Date of Influenza Vaccine: May 04, 2020 Past Medical History PMH As described under Assessment. Family Medical History Family Medical History: No reported family h/o CAD. Family History: Colon cancer Allergies and Home Medications Allergies Coded Allergies: Latex, Natural Rubber (Unverified Allergy, Intermediate, Shortness of Breath, 09/27/20) Patient Home Medication List Home Medication List Reviewed: Yes Albuterol Sulfate (Albuterol Sulfate) 1.25 Mg/3 Ml Vial.neb, 3 ML NEB Q8H PRN for SHORTNESS OF BREATH Prescribed by: ELISE DUDLEY on 10/16/21 0904 Amiodarone HCl (Amiodarone HCl) 200 Mg Tablet, 200 MG PO BID Prescribed by: ELISE DUDLEY on 10/16/21 1236 Amoxicillin/Potassium Clav (Augmentin 500-125 Tablet) 500 Mg-125 Mg Tablet, 1 EACH PO TID Prescribed by: SOLIS COLLIER on 11/13/21 1321 Azithromycin (Azithromycin) 250 Mg Tablet, 250 MG PO UD Prescribed by: SOLIS COLLIER on 11/13/21 1321 Clonidine HCl (Clonidine HCl) 0.1 Mg Tablet, 0.1 MG PO BID PRN for BLOOD PRESSURE, (Reported) Entered as Reported by: LEOBARDO CARLIN on 08/26/21 1043 Dexlansoprazole (Dexlansoprazole Dr) 60 Mg Cap.dr.bp, 60 MG PO 1700, (Reported) Entered as Reported by: LEOBARDO CARLIN on 10/14/21 1102 Diazepam (Diazepam) 5 Mg Tablet, 5 MG PO BID PRN for ANXIETY, (Reported) Entered as Reported by: LEOBARDO CALRIN on 08/26/21 1043 Diltiazem HCl (Diltiazem 24Hr ER) 120 Mg Cap.er.24h, 120 MG PO DAILY Prescribed by: ELISE DUDLEY on 10/16/21 1236 Doxycycline Hyclate (Doxycycline Hyclate) 100 Mg Tablet, 100 MG PO BID Prescribed by: HUBERT GENTILE on 01/15/22 1650 Fish Oil/Dha/Epa (Fish Oil 1,200 mg Fish Oil) 1 Each Capsule, 1 EACH PO DAILY, (Reported) Entered as Reported by: LEOBARDO CARLIN on 08/26/21 1043 Fluticasone Furoate (Arnuity Ellipta) 100 Mcg Blst.w.dev, 100 MCG IH DAILY, (Reported) Entered as Reported by: LEOBARDO CARLIN on 10/14/21 1102 Furosemide (Furosemide) 20 Mg Tablet, 20 MG PO DAILY, (Reported) Entered as Reported by: LEOBARDO CARLIN on 08/26/21 1043 Hydrocodone/Acetaminophen (Hydrocodone-Acetamin 5-325 mg) 5 Mg-325 Mg Tablet, 1 TAB PO Q4H PRN for PAIN-MODERATE (5-7) Prescribed by: SOLIS COLLIER on 11/13/21 1322 Hydrocodone/Acetaminophen (Hydrocodone-Acetamin 7.5-325) 7.5 Mg-325 Mg Tablet, 1 EACH PO Q6H PRN for PAIN-BREAKTHROUGH Prescribed by: HUBERT GENTILE on 01/15/22 1750 Levocetirizine Dihydrochloride (Levocetirizine Dihydrochloride) 5 Mg Tablet, 5 MG PO HS, (Reported) Entered as Reported by: LEOBARDO CARLIN on 10/14/21 110 Levothyroxine Sodium (Levothyroxine Sodium) 112 Mcg Tablet, 112 MCG PO DAILY, (Reported) Entered as Reported by: LEOBARDO CARLIN on 08/26/21 104 Metoclopramide HCl (Metoclopramide HCl) 10 Mg Tablet, 10 MG PO QIDACHS, (Reported) Entered as Reported by: LEOBARDO CARLIN on 08/26/21 104 Ondansetron (Ondansetron Odt) 4 Mg Tab.rapdis, 4 MG PO Q6H PRN for NAUSEA/VOMITING-1ST LINE, (Reported) Entered as Reported by: LEOBARDO CARLIN on 10/14/21 110 Rivaroxaban (Xarelto) 20 Mg Tablet, 20 MG PO 1700, (Reported) Entered as Reported by: LEOBARDO CARLIN on 10/14/21 110 Sumatriptan Succinate (Imitrex) 50 Mg Tab, 50 MG PO DAILY PRN for HEADACHE Prescribed by: ELISE DUDLEY on 10/16/21 0904 Vitamin E Mixed (Vitamin E) 100 Unit Tablet, 100 UNIT PO DAILY, (Reported) Entered as Reported by: LEOBARDO CARLIN on 08/26/21 1043 [Vit C/D3/Zinc] , 1 EA PO DAILY, (Reported) Entered as Reported by: LEOBARDO CARLIN on 10/14/21 1102 Discontinued Medications Hydrocodone/Acetaminophen (Hydrocodone-Acetamin 5-325 mg) 5 Mg-325 Mg Tablet, 1 TAB PO Q6H PRN for PAIN-MODERATE (5-7) Prescribed by: HUBERT GENTILE on 01/15/22 1651 Physical Exam-Cardiology Physical Exam Vital Signs/I&O 01/16/22 01/16/22 01/16/22 01/16/22 09:21 14:10 14:21 14:26 Temp 36.0 36.9 Pulse 118 118 121 121 Resp 19 18 18 B/P (MAP) 157/113 (128) 139/87 154/115 (128) Pulse Ox 97 95 O2 Delivery Room Air Room Air Nasal Cannula O2 Flow Rate 2.00 01/16/22 01/16/22 01/16/22 01/16/22 15:00 15:00 16:00 16:00 Temp 37.0 Pulse 121 121 122 Resp 31 31 35 B/P (MAP) 157/118 157/118 (131) 145/110 Pulse Ox 98 98 98 O2 Delivery Nasal Cannula Nasal Cannula Nasal Cannula O2 Flow Rate 2.00 2.00 2.00 01/16/22 01/16/22 01/16/22 01/16/22 16:00 17:00 17:00 18:00 Pulse 122 101 101 109 Resp 35 17 17 24 B/P (MAP) 157/118 (131) 146/128 (134) 119/83 136/83 Pulse Ox 98 97 97 95 O2 Delivery Nasal Cannula Nasal Cannula Nasal Cannula Nasal Cannula O2 Flow Rate 2.00 2.00 2.00 2.00 Capillary Refill : Less Than 3 Seconds Constitutional: AAO x 3, well-developed, well-nourished HEENT: PERRL, hearing is well preserved, oral hygience is good Neck: No carotid bruit; carotid pulses are 2 + bilaterally Respiratory: No accessory muscle use, No respiratory distress; chest expansion is symmetric, chest is bilaterally symmetric, other (dyspneic with conversation) Cardiovascular: irregularly irregular, tachycardia Gastrointestinal: No tender; soft, round, audible bowel sounds Extremities: no lower extremity edema bilateral Neurologic/Psychiatric: grossly intact (moves all extremities) Skin: No rash on exposed areas, No ulcerations on exposed areas Data Review Labs Laboratory Tests 01/16/22 09:38: White Blood Count 8.5, Red Blood Count 5.11, Hemoglobin 15.0, Hematocrit 44, Mean Corpuscular Volume 86, Mean Corpuscular Hemoglobin 29, Mean Corpuscular Hemoglobin Concent 34, Red Cell Distribution Width 13.4, Platelet Count 287, Mean Platelet Volume 10.7, Immature Granulocyte % (Auto) 0, Neutrophils (%) (Auto) 61, Lymphocytes (%) (Auto) 30, Monocytes (%) (Auto) 6, Eosinophils (%) (Auto) 2, Basophils (%) (Auto) 0, Neutrophils # (Auto) 5.2, Lymphocytes # (Auto) 2.6, Monocytes # (Auto) 0.5, Eosinophils # (Auto) 0.2, Basophils # (Auto) 0.0, Immature Granulocyte # (Auto) 0.0, Prothrombin Time 20.2H, INR Comment 1.7H, Activated Partial Thromboplast Time 40H, Sodium Level 142, Potassium Level 3.9, Chloride Level 106, Carbon Dioxide Level 23, Anion Gap 13, Blood Urea Nitrogen 12, Creatinine 0.83, Estimat Glomerular Filtration Rate 84, BUN/Creatinine Ratio 14, Glucose Level 117H, Calcium Level 10.3H, Corrected Calcium 10.0, Magnesium Level 1.9, Total Bilirubin 0.5, Aspartate Amino Transf (AST/SGOT) 25, Alanine Aminotransferase (ALT/SGPT) 44, Alkaline Phosphatase 92, Myoglobin 28.3, Troponin I < 0.028, C-Reactive Protein High Sensitivity 0.20, B-Type Natriuretic Peptide 84.8, Total Protein 7.3, Albumin 4.4, Procalcitonin 0.03, Thyroid Stimulating Hormone (TSH) 3.24, Free Thyroxine 1.02 A/P-Cardiology Assessment/Admission Diagnosis Paroxysmal atrial fibrillation/flutter - History of ablation in the remote past, patient had a total of 3 ablation procedures last procedure was done in 2018 - Recurrent P.atrial fibrillation and she was seen by Dr. Ferguson, he had adjusted her pacemaker setting for better detection of the atrial fibrillation - Underwent LENORE with cardioversion in December 05, [address] Ruvalcaba - Patient was intolerant to Multaq and Toprol and Digoxin (per her report) - Evaluated by Dr. Sanon. 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 Had it implanted in [place]. Generalized fatigue and loss of energy - chronic Chest pain, nonspecific etiology - cardiac catheterization on 12/04/[address] Ruvalcaba showing normal coronaries with normal left ventricular size and function - LENORE done on December 04, [address] Ruvalcaba - showing normal left ventricular size, left atrium is mildly dilated, no clot or thrombus, mild mitral regurgitation History of hiatal hernia, had repair surgery done at [facility] approx 2 months ago. GERD, epigastric pain, loss of appetite - had CT abdomen done in the ER on 03/17/21 showing abnormal wall thickening in the region of the GE junction and prox stomach with multiple prominent enlarged superior mesenteric and paraesophageal lymph nodes most concerning for GE junction or prox gastric malignancy - Had EGD with Dr Valles Hypothyroidism - followed and managed by primary care physician COPD - maintained on bronchodilator. Followed and managed by primary care physician Status post Covid 19 infection in June 2020 - still complaining of some dyspnea and fatigue since that infection Discussion and Recomendations Complex management Recurrent a-fib/flutter despite numerous ablations (as noted above) - Cardizem gtt infusing - rate improved - Amiodarone p.o has been started by Medical services - Advise addition of BB, to which she is not agreeable, stating it has not helped her in the past - Advise then addition of Digoxin for rate control, she has not agreed, stating it has not helped her in the past - Continue Xarelto - she reports no missed doses in well over a month - advise cardioversion to which she agrees after having had a full explanation of rationale, procedure, risks, benefits potential complications and alternatives - will proceed tomorrow or sooner if indicated - Echocardiogram to eval structure and function Monitor lab closely - replace electrolytes as indicated Non-compliance with medication regimen (only takes Cardizem once a day, rather that BID as she reports it is Rx) BP is not well controlled - she is requesting Amlodipine for BP control Pleuritic cp of undetermined etiology - no evidence of ACS - treat empirically - Hosp svce to eval for non-coronary causes of chest pain Further recs will be based on her hospital course We would like to thank Medical services for this consult Clinical Quality Measures AMI/AHF: ASA po Prior to arrival: ANNAMARIE Silva MD FACP FAC CCDS Jan 16, 2022 19:14
[2022-01-16] MEDS ORDERED: morphine INJ 10 MG/ML 1ML (SYR OR VIAL) ONE (20:22)
[2022-01-16] MEDS ORDERED: DOXYCYCLINE 100 MG (VIBRAMYCIN) TABLET ONE (20:23)
[2022-01-16] MEDS: AMIODARONE 200 MG (CORDARONE) TAB PO SCH (20:26)
[2022-01-16] MEDS: DOXYCYCLINE 100 MG (VIBRAMYCIN) TABLET PO SCH (20:26)
[2022-01-16] MEDS ORDERED: morphine INJ 4 MG/ML 1 ML (VIAL/SYRINGE) IVP PRN (21:15)
[2022-01-17] VITALS (14 sets, daily range): BP systolic 93–141; BP diastolic 67–105
[2022-01-17] MEDS ORDERED: KCL 20 MEQ TAB (K-DUR) PO SCH (06:00)
[2022-01-17] MEDS ORDERED: POTASSIUM CL 10MEQ/50ML IVPB 50 ML IV SCH (06:00)
[2022-01-17] MEDS ORDERED: MAGNESIUM 1 GM/100 ML IVPB 100 ML IV SCH (06:00)
[2022-01-17 06:13] LABS: BASOPHILS % (AUTO) 1 % (0-10); EOSINOPHILS # (AUTO) 0.1 10^3/uL (0.0-0.3); EOSINOPHILS % (AUTO) 2 % (0-10); HEMATOCRIT 40 % (35-52); HEMOGLOBIN 13.2 g/dL (11.5-16.0); LYMPHOCYTES # (AUTO) 1.9 10^3/uL (1.0-4.0); LYMPHOCYTES % (AUTO) 30 % (12-44); MEAN CORPUSCULAR HEMOGLOBIN 30 pg (25-34); MEAN CORPUSCULAR HGB CONC 33 g/dL (32-36); MEAN CORPUSCULAR VOLUME 88 fL (80-99); MEAN PLATELET VOLUME 10.9 fL (9.0-12.2); MONOCYTES # (AUTO) 0.5 10^3/uL (0.0-1.0); MONOCYTES % (AUTO) 9 % (0-12); NEUTROPHILS # (AUTO) 3.7 10^3/uL (1.8-7.8); NEUTROPHILS % (AUTO) 59 % (42-75); PLATELET COUNT 248 10^3/uL (130-400); WHITE BLOOD COUNT 6.2 10^3/uL (4.3-11.0)
[2022-01-17] MEDS: METOCLOPRAMIDE 10 MG (REGLAN) TAB PO SCH ×2 (06:14→11:23)
[2022-01-17] MEDS: DOXYCYCLINE 100 MG (VIBRAMYCIN) TABLET PO SCH (06:14)
[2022-01-17 06:18] LABS: POTASSIUM 3.6 MMOL/L (3.6-5.0)
[2022-01-17 06:20] LABS: ALBUMIN 4.1 GM/DL (3.2-4.5); CALCIUM 9.1 MG/DL (8.5-10.1)
[2022-01-17 06:23] LABS: TOTAL PROTEIN 6.7 GM/DL (6.4-8.2)
[2022-01-17 06:24] LABS: BILIRUBIN,TOTAL 0.9 MG/DL (0.1-1.0); CREATININE SERUM 0.79 MG/DL (0.60-1.30)
[2022-01-17 06:26] LABS: PHOSPHORUS 4.8 MG/DL (2.3-4.7)
[2022-01-17 06:27] LABS: MAGNESIUM 1.7 MG/DL (1.6-2.4)
[2022-01-17] MEDS ORDERED: LEVOTHYROXINE 112 MCG (LEVOTHROID) TAB PO SCH (06:30)
[2022-01-17] MEDS: MAGNESIUM 1 GM/100 ML IVPB 100 ML IV SCH ×2 (06:39→08:16)
--- NOTE | 2022-01-17 08:16 | Tele-ICU Progress Note ---
Subjective Date Seen by a Provider: Jan 17, 2022 Time Seen by a Provider: 08:16 Subjective/Events-last exam Available chart/vitals/labs/images reviewed. Video assessment done using telemetry ICU camera, rest of exam as per RN. Discussion with the RN, exam as per RN. Hospital course Patient admitted with atrial flutter/fibrillation with rapid ventricular rate but rate is controlled anteriorly with Cardizem drip. And the latter this a.m. she underwent cardioversion and currently she is in sinus rhythm with heart rate of 78/min. Denies any chest pain or shortness of breath. She is being anticoagulated with Xarelto. She also has a dual-chamber pacemaker pacer. She is being started on oral Cardizem and amiodarone. Sepsis Event Evaluation Height, Weight, BMI Height: '" Weight: lbs. oz. kg; 36.25 BMI Method: Exam Exam Patient acknowledged, consented, and participated in this virtual visit which was conducted using real time audio/video Vital Signs Date Time Temp Pulse Resp B/P (MAP) Pulse Ox O2 Delivery O2 Flow Rate FiO2 01/17/22 07:13 Nasal Cannula 2.00 01/17/22 07:12 97 Nasal Cannula 3.00 01/17/22 06:00 85 12 120/81 (94) 96 Nasal Cannula 3.00 01/17/22 05:00 79 12 109/90 (96) 96 Nasal Cannula 3.00 01/17/22 04:00 75 17 127/78 (94) 96 Nasal Cannula 3.00 01/17/22 03:15 36.4 Nasal Cannula 3.00 01/17/22 03:15 94 Nasal Cannula 3.00 01/17/22 03:00 80 13 125/78 (94) 96 Nasal Cannula 3.00 01/17/22 02:00 70 12 110/96 (101) 96 Nasal Cannula 3.00 01/17/22 01:00 76 18 121/91 (101) 96 Nasal Cannula 3.00 01/17/22 01:00 76 01/17/22 00:00 82 15 106/67 (80) 95 Nasal Cannula 3.00 01/16/22 23:35 95 Nasal Cannula 3.00 01/16/22 23:29 36.2 Nasal Cannula 01/16/22 23:00 77 13 113/85 (94) 95 Nasal Cannula 3.00 01/16/22 22:00 80 19 115/93 (100) 95 Nasal Cannula 3.00 01/16/22 21:00 79 15 132/86 (101) 96 Nasal Cannula 3.00 01/16/22 20:25 Nasal Cannula 3.00 01/16/22 20:00 78 18 136/92 (107) 95 Nasal Cannula 2.00 01/16/22 20:00 36.5 01/16/22 19:25 95 Nasal Cannula 2.00 01/16/22 19:00 79 01/16/22 19:00 36.5 84 19 127/94 (105) 95 Nasal Cannula 2.00 01/16/22 18:00 109 24 136/83 95 Nasal Cannula 2.00 01/16/22 17:00 101 17 119/83 97 Nasal Cannula 2.00 01/16/22 17:00 101 17 146/128 (134) 97 Nasal Cannula 2.00 01/16/22 16:00 122 35 157/118 (131) 98 Nasal Cannula 2.00 01/16/22 16:00 122 35 145/110 98 Nasal Cannula 2.00 01/16/22 16:00 37.0 01/16/22 15:00 121 31 157/118 (131) 98 Nasal Cannula 2.00 01/16/22 15:00 121 31 157/118 98 Nasal Cannula 2.00 01/16/22 15:00 Nasal Cannula 2.00 01/16/22 14:26 121 01/16/22 14:21 36.9 121 18 154/115 (128) 95 Nasal Cannula 2.00 01/16/22 14:10 118 18 139/87 97 Room Air 01/16/22 09:21 36.0 118 19 157/113 (128) Room Air I & O 01/17/22 07:00 Intake Total 1750 ml Output Total 700 ml Balance 1050 ml Height & Weight Height: '" Weight: lbs. oz. 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 Paroxysmal atrial fibrillation on anticoagulant therapy 2. Status post cardioversion currently she is on sinus rhythm. 3. History of sinus node dysfunction status post dual-chamber pacemaker insertion 3. Nonspecific chest pain could be due to GERD. 4. History of hiatal hernia status post surgery in approximately 2 months ago. 5. Esophageal thickening concerning for malignancy patient underwent EGD. Apparently showed moderate gastritis but no evidence of malignancy. Recommendations 1. Cardiac arrhythmia management per cardiology 2. Antireflux measures 3. Continue anticoagulant therapy per cardiology Critical Care: Critically Ill Patient Time spent with patient (mins): 15 SHANELL WEAVER MD Jan 17, 2022 08:16
[2022-01-17] MEDS ORDERED: KCL 20 MEQ TAB (K-DUR) PO ONE (09:00)
[2022-01-17] MEDS ORDERED: amLODIPine 5 MG (NORVASC) TAB PO SCH (09:00)
[2022-01-17] MEDS: ONDANSETRON 4 MG/2 ML (SDV) Z0FRAN IV PRN (09:24)
[2022-01-17] MEDS ORDERED: proPOfol 200 MG/20 ML (DIPRIVAN) VIAL IV ONE (09:51)
[2022-01-17] MEDS ORDERED: dilTIAZem120 MG (CARDIZEM CD) CAP PO SCH (10:30)
--- NOTE | 2022-01-17 10:38 | Anesthesia-General Post-Op ---
MAC Patient Condition Mental Status/LOC: Same as Preop Cardiovascular: Satisfactory Nausea/Vomiting: Absent Respiratory: Satisfactory Pain: Controlled Complications: Absent Post Op Complications Complications None Follow Up Care/Instructions Patient Instructions None needed. Anesthesiology Discharge Order Discharge Order Patient is doing well, no complaints, stable vital signs, no apparent adverse anesthesia problems. No complications reported per nursing. CHERY DYER CRNA Jan 17, 2022 10:38
[2022-01-17] MEDS: AMIODARONE 200 MG (CORDARONE) TAB PO SCH (11:23)
--- NOTE | 2022-01-17 11:28 | Progress Note - Cardiology ---
Cardiology SOAP Progress Note Subjective: Continues with palp (prior to cardioversion) Pleuritic cp has improved/resolved No shortness of breath at rest No syncope Objective: I&O/Vital Signs 01/16/22 01/16/22 01/17/22 01/17/22 23:29 23:35 00:00 01:00 Temp 36.2 Pulse 82 76 Resp 15 B/P (MAP) 106/67 (80) Pulse Ox 95 95 O2 Delivery Nasal Cannula Nasal Cannula Nasal Cannula O2 Flow Rate 3.00 3.00 01/17/22 01/17/22 01/17/22 01/17/22 01:00 02:00 03:00 03:15 Pulse 76 70 80 Resp 18 12 13 B/P (MAP) 121/91 (101) 110/96 (101) 125/78 (94) Pulse Ox 96 96 96 94 O2 Delivery Nasal Cannula Nasal Cannula Nasal Cannula Nasal Cannula O2 Flow Rate 3.00 3.00 3.00 3.00 01/17/22 01/17/22 01/17/22 01/17/22 03:15 04:00 05:00 06:00 Temp 36.4 Pulse 75 79 85 Resp 17 12 12 B/P (MAP) 127/78 (94) 109/90 (96) 120/81 (94) Pulse Ox 96 96 96 O2 Delivery Nasal Cannula Nasal Cannula Nasal Cannula Nasal Cannula O2 Flow Rate 3.00 3.00 3.00 3.00 01/17/22 01/17/22 01/17/22 01/17/22 07:00 07:00 07:12 07:13 Pulse 82 83 Resp 20 B/P (MAP) 116/82 (93) Pulse Ox 93 97 O2 Delivery Nasal Cannula Nasal Cannula Nasal Cannula O2 Flow Rate 3.00 3.00 2.00 01/17/22 01/17/22 01/17/22 01/17/22 07:48 08:00 09:00 10:00 Pulse 82 86 78 Resp 14 14 14 B/P (MAP) 108/85 (93) 109/84 (92) 135/105 (115) Pulse Ox 96 95 95 95 O2 Delivery Nasal Cannula Nasal Cannula Nasal Cannula Nasal Cannula O2 Flow Rate 3.00 2.00 2.00 2.00 01/17/22 10:17 Pulse Ox 96 O2 Delivery Nasal Cannula O2 Flow Rate 3.00 01/17/22 00:00 Intake Total 1600 ml Output Total 325 ml Balance 1275 ml Constitutional: AAO x 3, well-developed, well-nourished Respiratory: No accessory muscle use, No respiratory distress; chest expansion is symmetric, chest is bilaterally symmetric, other (dyspneic with conversation) Cardiovascular: irregularly irregular, tachycardia Gastrointestional: No tender; soft, round, audible bowel sounds Extremities: no lower extremity edema bilateral Neurologic/Psychiatric: grossly intact (moves all extremities) Skin: No rash on exposed areas, No ulcerations on exposed areas Results/Procedures: Labs Laboratory Tests 01/17/22 05:10: White Blood Count 6.2, Red Blood Count 4.48, Hemoglobin 13.2, Hematocrit 40, Mean Corpuscular Volume 88, Mean Corpuscular Hemoglobin 30, Mean Corpuscular Hemoglobin Concent 33, Red Cell Distribution Width 13.4, Platelet Count 248, Mean Platelet Volume 10.9, Immature Granulocyte % (Auto) 0, Neutrophils (%) (Auto) 59, Lymphocytes (%) (Auto) 30, Monocytes (%) (Auto) 9, Eosinophils (%) (Auto) 2, Basophils (%) (Auto) 1, Neutrophils # (Auto) 3.7, Lymphocytes # (Auto) 1.9, Monocytes # (Auto) 0.5, Eosinophils # (Auto) 0.1, Basophils # (Auto) 0.0, Immature Granulocyte # (Auto) 0.0, Sodium Level 138, Potassium Level 3.6, Chloride Level 102, Carbon Dioxide Level 23, Anion Gap 13, Blood Urea Nitrogen 14, Creatinine 0.79, Estimat Glomerular Filtration Rate 89, BUN/Creatinine Ratio 18, Glucose Level 112H, Calcium Level 9.1, Corrected Calcium 9.0, Phosphorus Level 4.8H, Magnesium Level 1.7, Total Bilirubin 0.9, Aspartate Amino Transf (AST/SGOT) 341H, Alanine Aminotransferase (ALT/SGPT) 318H, Alkaline Phosphatase 120, Total Protein 6.7, Albumin 4.1, Triglycerides Level 116, Cholesterol Level 145, LDL Cholesterol Direct 92, VLDL Cholesterol 23, HDL Cholesterol 42 Laboratory Tests 01/16/22 09:38 01/17/22 05:10 A/P: Assessment: Paroxysmal atrial fibrillation/flutter - History of ablation in the remote past, patient had a total of 4 ablation procedures - none has held - Patient was intolerant to Multaq and Toprol and Digoxin (per her report) - Last ablation on 10-23-21- complicated by diaphragmatic injury and possible phrenic nerve injury. 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 Had it implanted in [place]. Generalized fatigue and loss of energy - chronic Chest pain, nonspecific etiology - cardiac catheterization on 12/04/[address] Ruvalcaba showing normal coronaries with normal left ventricular size and function - LENORE done on December 04, [address] Ruvalcaba - showing normal left ventricular size, left atrium is mildly dilated, no clot or thrombus, mild mitral regurgitation History of hiatal hernia, had repair surgery done at approx 2 months ago. GERD, epigastric pain, loss of appetite - had CT abdomen done in the ER on 03/17/21 showing abnormal wall thickening in the region of the GE junction and prox stomach with multiple prominent enlarged superior mesenteric and paraesophageal lymph nodes most concerning for GE mariano ction or prox gastric malignancy - Had EGD with Dr Valles Hypothyroidism - followed and managed by primary care physician COPD - maintained on bronchodilator. Followed and managed by primary care physician Status post Covid 19 infection in June 2020 - still complaining of some dyspnea and fatigue since that infection Plan: * NSR restore with elec CV * Interrogate pacemaker post cardioversion. Then d/c if stable. Continue oral dilt (120 bid) and amio (200 bid) * Continue amlodipine for bp control * F/u with Dr Ruvalcaba * Pleuritic cp of undetermined etiology - no evidence of ACS - Hosp svce to eval for non-coronary causes of chest pain Clinical Quality Measures AMI/AHF: ASA po Prior to arrival: ANNAMARIE Silva MD FACP FAC CCDS Jan 17, 2022 11:28
[2022-01-17] MEDS: dilTIAZem DRIP PRE-MIX 125 ML IV SCH (12:45)
[2022-01-17] MEDS ORDERED: DILT-27 PO ×2 (12:53)
[2022-01-17] MEDS ORDERED: dilTIAZem120 MG (CARDIZEM CD) CAP PO ONE (21:00)
--- NOTE | 2022-01-17 21:31 | Short Stay Summary-Hospitalist ---
History of Present Illness HPI/Chief Complaint Maria Fernanda Rondon is a 56 year old female with PMH AFib who presented with tachycardia. She was also having some chest tightness and palpitations. She has been short of breath. She denies fevers and chills. She reports nausea. She denies abdominal pain. She has been compliant with her medications. She reports undergoing an ablation a couple months ago which caused damage to her diaphragm, likely phrenic nerve injury. She reports being compliant with her Xarelto and not missing any doses. Source: patient Exam Limitations: no limitations Date Seen 01/17/22 Time Seen by a Provider: 09:30 Attending Physician Heriberto Nunn MD PCP Admitting Physician: Anderson Orlando MD Attending Physician: Anderson Orlando MD Referring Physician Date of Admission Jan 16, 2022 at 14:44 Home Medications & Allergies Home Medications Reviewed patient Home Medication Reconciliation performed by pharmacy medication reconciliations telecommunications technician and/or nursing. Patients Allergies have been reviewed. Allergies Allergies Coded Allergies Latex, Natural Rubber (Unverified Allergy, Intermediate, Shortness of Breath, 09/27/20) Past Vprivoc-Xqygqc-Vajuhd Hx Patient Social History Tobacco Use?: No Smoking Status: Never a Smoker Smokeless Tobacco Frequency: Never a User Use of E-Cig and/or Vaping dev: No Use of E-Cig and/or Vaping Shen: Never a User Substance use?: No Alcohol Use?: No Alcohol Frequency: Once in a while Pt feels they are or have been: No Immunizations Up To Date Date of Influenza Vaccine: May 04, 2020 First/Initial COVID19 Vaccinat: NONE Second COVID19 Vaccination Arley: NONE\\ Tetanus Booster (TDap): Less Than 5 Years Hepatitis A: Yes Hepatitis B: Yes PED Vaccines UTD: Yes Seasonal Allergies Seasonal Allergies: Yes Current Status status: No status: No Advance Directives: No Communicates: Verbally Primary Language: [place] Preferred Spoken Language: [place] Is interpretation needed?: No Implanted or Applied Medical D: Pacemaker Past Medical History Surgeries: Appendectomy, Bladder Surgery, Cardiac, Gallbladder, Hysterectomy, Pacemaker, Tonsillectomy COPD Atrial Fibrillation, High Cholesterol, Hypertension, Valvular Heart Disease Headaches /Migraines 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, 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, Menopausal Liver Disease/Jaundice, Reina's Esophagus, Polyps, Hiatal Hernia Chronic Back Pain Hypothyroidsim Loss of Vision: Denies Hearing Impairment: Denies Depression Eczema, Psoriasis Blood Disorders: No Hypertension Hyperlipidemia Atrial fibrillation Sick sinus syndrome status post pacemaker Hiatal hernia status post surgical repair Obesity Family Medical History Colon cancer Noncontributory Review of Systems Constitutional: weakness EENTM: no symptoms reported Respiratory: short of breath Cardiovascular: chest pain, palpitations Gastrointestinal: nausea Physical Exam Physical Exam Vital Signs Vital Signs - First Documented 01/16/22 01/16/22 01/16/22 09:21 14:10 14:21 Temp 36.0 Pulse 118 Resp 19 B/P (MAP) 157/113 (128) Pulse Ox 97 O2 Delivery Room Air O2 Flow Rate 2.00 Capillary Refill : Less Than 3 Seconds Height, Weight, BMI Height: '" Weight: lbs. oz. kg; 36.25 BMI Method: General Appearance: No Apparent Distress, WD/WN HEENT: PERRL/EOMI, Pharynx Normal Neck: Normal Inspection, Supple; No JVD Respiratory: Lungs Clear, No Respiratory Distress Cardiovascular: No Edema, No Murmur, Irregularly Irregular Gastrointestinal: Normal Bowel Sounds, Non Tender, Soft Extremity: Normal Inspection, No Pedal Edema Neurologic/Psychiatric: Alert, Oriented x3, No Motor/Sensory Deficits, Normal Mood/Affect Skin: Normal Color, Warm/Dry Results Results/Procedures Labs Laboratory Tests 01/16/22 09:38 01/17/22 05:10 Patient resulted labs reviewed. Imaging: Reviewed Imaging Report Short Stay Diagnosis Discharge Diagnosis-Short Stay Admission Diagnosis Atrial flutter with rapid ventricular response Final Discharge Diagnosis Atrial flutter with rapid ventricular response Conclusion Plan AFlutter with RVR Diltiazem increased s/p successful cardioversion Follow up with Cardiology as scheduled Follow up with your PCP Return with worsening symptoms Diagnosis/Problems Diagnosis/Problems (1) Atrial flutter with rapid ventricular response Status: Acute Clinical Quality Measures AMI/AHF: ASA po Prior to arrival: ANDERSON Marques MD Jan 17, 2022 21:31
--- NOTE | 2022-01-17 23:01 | OPERATIVE REPORT ---
DATE OF SERVICE: 01/17/2022 PREOPERATIVE DIAGNOSIS: Atrial flutter. POSTOPERATIVE DIAGNOSIS: Sinus rhythm. PROCEDURE: External electrical cardioversion. DESCRIPTION OF PROCEDURE: The patient is a 56-year-old lady, who has a history of paroxysmal atrial flutter. She has had several ablations, but continues to have recurrent atrial flutter. She comes in with palpitations and recurrent atrial flutter. She has been on oral anticoagulation in the appropriate dose without any interruption for more than a month. Accordingly, external electrical cardioversion was carried out today after having obtained an informed consent. The external patches were placed away from the pacemaker site. The nurse refrigeration mechanic helper gave short acting anesthesia under which 50 joules of biphasic synchronized shock was delivered through the external patches. This restored sinus rhythm. She tolerated the procedure well. Job ID: [id number] DocumentID: [id number] Dictated Date: 01/17/2022 11:21:56 It Solutions Architect Date: 01/17/2022 23:00:37 Dictated By: ANNAMARIE BAUMANN MD, MA, FACP, FACC,
[2022-01-18] MEDS ORDERED: SUCR1ORA5 PO (15:05)
== END 2022-01-17 15:05 | disposition home or self-care (01) | DRG 310 ==
LOC: EDUNIT# 09:17 → ER 09:19 → ICU 12:44 → OBSVTOIN 14:44
PROVIDERS: ADMIT Internal Medicine; ATTEND Internal Medicine
PROC: 5A2204Z Restoration of Cardiac Rhythm, Single (ICD-10-PCS; principal; 2022-01-17)
DX: I48.92 Unspecified atrial flutter (principal); I48.0 Paroxysmal atrial fibrillation; I49.5 Sick sinus syndrome; I11.0 Hypertensive heart disease with heart failure; I50.9 Heart failure, unspecified; J44.9 Chronic obstructive pulmonary disease, unspecified; K29.70 Gastritis, unspecified, without bleeding; E78.00 Pure hypercholesterolemia, unspecified; E03.9 Hypothyroidism, unspecified; F32.A Depression, unspecified; K21.9 Gastro-esophageal reflux disease without esophagitis; E66.9 Obesity, unspecified; Z68.36 Body mass index [BMI] 36.0-36.9, adult; Z79.01 Long term (current) use of anticoagulants; Z91.14 Patient's other noncompliance with medication regimen; Z91.040 Latex allergy status
CPT/HCPCS: 36415; 71045; 80053; 80061; 83735; 83874; 83880; 84100; 84145; 84439; 84443; 84484; 85025; 85610; 85730; 86141; 87081; 93005; 93041

== ENCOUNTER 2022-01-18 13:37 | Emergency (ER) | payer BC ==
[~2022-01-18] VITALS: Ht 160 cm; Wt 90.0 kg
[2022-01-18 13:43] VITALS: BP 123/88
--- NOTE | 2022-01-18 14:23 | ED General ---
General Chief Complaint: Oral/Throat Problems Stated Complaint: LOW O2, SOMETHING STUCK IN THROAT Nursing Triage Note: ARRIVED VIA AMB TO [facility]. STATES SHE USES A MACHINE TO HELP HER BREATHE AT NIGHT AND SHE WOKE UP FEELING LIKE SHE HAS SOMETHING STUCK IN HER THROAT AND HER THROAT IS SORE. Source of Information: Patient (DON ELIZABETH) History of Present Illness Date Seen by Provider: Jan 18, 2022 Time Seen by Provider: 14:17 Initial Comments This is a 56-year-old female who presents to the emergency room for evaluation of a sore throat/feeling like something was stuck in her throat. She states that she was cardioverted yesterday and went home and used a CPAP machine that she had not used recently and when she woke up she had some pain in her throat and felt something was stuck. However, she states that she has been able to drink fluids, eat food and pass her pills without difficulty. Timing/Duration: 1 Day Severity: Moderate (DON ELIZABETH) Allergies and Home Medications Allergies Coded Allergies: Latex, Natural Rubber (Unverified Allergy, Intermediate, Shortness of Breath, 09/27/20) Patient Home Medication List Home Medication List Reviewed: Yes (DON ELIZABETH) Albuterol Sulfate (Albuterol Sulfate) 1.25 Mg/3 Ml Vial.neb, 3 ML NEB Q8H PRN for SHORTNESS OF BREATH Prescribed by: ELISE DUDLEY on 10/16/21 0904 Amiodarone HCl (Amiodarone HCl) 200 Mg Tablet, 200 MG PO BID Prescribed by: ELISE DUDLEY on 10/16/21 1236 Amoxicillin/Potassium Clav (Augmentin 500-125 Tablet) 500 Mg-125 Mg Tablet, 1 EACH PO TID Prescribed by: SOLIS COLLIER on 11/13/21 1321 Azithromycin (Azithromycin) 250 Mg Tablet, 250 MG PO UD Prescribed by: SOLIS COLLIER on 11/13/21 1321 Clonidine HCl (Clonidine HCl) 0.1 Mg Tablet, 0.1 MG PO BID PRN for BLOOD PRESSURE, (Reported) Entered as Reported by: LEOBARDO CARLIN on 08/26/21 1043 Dexlansoprazole (Dexlansoprazole Dr) 60 Mg Cap.bp, 60 MG PO 1700, (Reported) Entered as Reported by: LEOBARDO CARLIN on 10/14/21 1102 Diazepam (Diazepam) 5 Mg Tablet, 5 MG PO BID PRN for ANXIETY, (Reported) Entered as Reported by: LEOBARDO CARLIN on 08/26/21 1043 Diltiazem HCl (Diltiazem 24Hr ER) 120 Mg Cap.er.24h, 120 MG PO BID Prescribed by: JONO SNYDER on 01/17/22 1253 Doxycycline Hyclate (Doxycycline Hyclate) 100 Mg Tablet, 100 MG PO BID Prescribed by: HUBERT GENTILE on 01/15/22 1650 Fish Oil/Dha/Epa (Fish Oil 1,200 mg Fish Oil) 1 Each Capsule, 1 EACH PO DAILY, (Reported) Entered as Reported by: LEOBARDO CARLIN on 08/26/21 104 Fluticasone Furoate (Arnuity Ellipta) 100 Mcg Blst.w.dev, 100 MCG IH DAILY, (Reported) Entered as Reported by: LEOBARDO CARLIN on 10/14/21 110 Furosemide (Furosemide) 20 Mg Tablet, 20 MG PO DAILY, (Reported) Entered as Reported by: LEOBARDO CARLIN on 08/26/21 104 Hydrocodone/Acetaminophen (Hydrocodone-Acetamin 5-325 mg) 5 Mg-325 Mg Tablet, 1 TAB PO Q4H PRN for PAIN-MODERATE (5-7) Prescribed by: SOLIS COLLIER on 11/13/21 1322 Hydrocodone/Acetaminophen (Hydrocodone-Acetamin 7.5-325) 7.5 Mg-325 Mg Tablet, 1 EACH PO Q6H PRN for PAIN-BREAKTHROUGH Prescribed by: HUBERT GENTILE on 01/15/22 1750 Levocetirizine Dihydrochloride (Levocetirizine Dihydrochloride) 5 Mg Tablet, 5 MG PO HS, (Reported) Entered as Reported by: LEOBARDO CARLIN on 10/14/21 1102 Levothyroxine Sodium (Levothyroxine Sodium) 112 Mcg Tablet, 112 MCG PO DAILY, (Reported) Entered as Reported by: LEOBARDO CARLIN on 08/26/21 104 Metoclopramide HCl (Metoclopramide HCl) 10 Mg Tablet, 10 MG PO QIDACHS, (Reported) Entered as Reported by: LEOBARDO CARLIN on 08/26/21 1043 Ondansetron (Ondansetron Odt) 4 Mg Tab.rapdis, 4 MG PO Q6H PRN for NAUSEA/VOMITING-1ST LINE, (Reported) Entered as Reported by: LEOBARDO CALRIN on 10/14/21 1102 Rivaroxaban (Xarelto) 20 Mg Tablet, 20 MG PO 1700, (Reported) Entered as Reported by: LEOBARDO CARLIN on 10/14/21 1102 Sucralfate (Carafate) 1 Gram/10 Ml Oral.susp, 1 GM PO TID Prescribed by: Fady Elizabeth on 01/18/22 1505 Sumatriptan Succinate (Imitrex) 50 Mg Tab, 50 MG PO DAILY PRN for HEADACHE Prescribed by: ELISE DUDLEY on 10/16/21 0904 Vitamin E Mixed (Vitamin E) 100 Unit Tablet, 100 UNIT PO DAILY, (Reported) Entered as Reported by: LEOBARDO CARLIN on 08/26/21 1043 [Vit C/D3/Zinc] , 1 EA PO DAILY, (Reported) Entered as Reported by: LEOBARDO CARLIN on 10/14/21 1102 Discontinued Medications Diltiazem HCl (Diltiazem 24Hr ER) 120 Mg Cap.er.24h, 120 MG PO DAILY Prescribed by: ELISE DUDLEY on 10/16/21 1236 Hydrocodone/Acetaminophen (Hydrocodone-Acetamin 5-325 mg) 5 Mg-325 Mg Tablet, 1 TAB PO Q6H PRN for PAIN-MODERATE (5-7) Prescribed by: HUBRET GENTILE on 01/15/22 1651 Review of Systems Review of Systems Constitutional: no symptoms reported EENTM: throat pain Respiratory: no symptoms reported Cardiovascular: no symptoms reported Gastrointestinal: no symptoms reported Musculoskeletal: no symptoms reported Skin: no symptoms reported (DON ELIZABETH) Past Lcvpohk-Qqpuqf-Chghia Hx Patient Social History Tobacco Use?: No Substance use?: No Alcohol Use?: Yes Alcohol Frequency: Rarely (DON ELIZABETH) Immunizations Up To Date Tetanus Booster (TDap): Less than 5yrs PED Vaccines UTD: Yes First/Initial COVID19 Vaccinat: NONE Second COVID19 Vaccination Arley: NONE\\ Third COVID19 Vaccination Date: NONE (DON ELIZABETH) Seasonal Allergies Seasonal Allergies: Yes (DON ELIZABETH) Past Medical History Surgery/Hospitalization HX: pacemaker, CHF, A-fib, Cardiac cath, 3 cardiac ablasions, hysterectomy, appendectomy, tonsillectomy, titi, hiatal hernia Surgeries: Yes (D&C'S, LAPAROSCOPY, UVULA REMOVED, hiatal H. x 2 repair, card iac ablations) Appendectomy, Bladder Surgery, Cardiac, Gallbladder, Hysterectomy, Pacemaker, Tonsillectomy Respiratory: Yes (Right diaphragmatic paralysis) COPD Cardiac: Yes (ABLATION, CHF) Atrial Fibrillation, High Cholesterol, Hypertension, Valvular Heart Disease Neurological: Yes (Right diaphragmatic paralysis) Headaches /Migraines YARN TWISTER History: Hysterectomy, 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, Menopausal Genitourinary: No (BLADDER SLING) Gastrointestinal: Yes Liver Disease/Jaundice, Reina's Esophagus, Polyps, Hiatal Hernia Musculoskeletal: Yes Chronic Back Pain Endocrine: Yes Hypothyroidsim HEENT: No Loss of Vision: Denies Hearing Impairment: Denies Cancer: No Psychosocial: Yes Depression Integumentary: Yes Eczema, Psoriasis Blood Disorders: No (DON ELIZABETH) Family Medical History Colon cancer Noncontributory (DON ELIZABETH) Physical Exam Vital Signs Vital Signs - First Documented 01/18/22 13:43 Temp 36.3 Pulse 96 Resp 16 B/P (MAP) 123/88 (100) Pulse Ox 94 O2 Delivery Room Air (KINGSLEY CURTIS MD) Vital Signs Capillary Refill : Less Than 3 Seconds (DON ELIZABETH) Height, Weight, BMI Height: '" Weight: lbs. oz. kg; 35.00 BMI Method: General Appearance: No Apparent Distress, WD/WN HEENT: PERRL/EOMI, TMs Normal, Normal ENT Inspection, Pharynx Normal Neck: Full Range of Motion, Normal Inspection, Other (Mild tenderness palpation throughout the trachea with no obvious swelling, crepitus or erythema) Respiratory: Chest Non Tender, Lungs Clear, Normal Breath Sounds Cardiovascular: Regular Rate, Rhythm, No Edema Back: Normal Inspection Extremity: Normal Capillary Refill, Normal Inspection Neurologic/Psychiatric: Alert, Oriented x3 Skin: Normal Color, Warm/Dry Lymphatic: No Adenopathy (DON ELIZABETH) Progress/Results/Core Measures Suspected Sepsis SIRS Temperature: Pulse: 96 Respiratory Rate: 16 Blood Pressure 123 /88 Mean: 100 (DON ELIZABETH) Results/Orders Vital Signs/I&O 01/18/22 13:43 Temp 36.3 Pulse 96 Resp 16 B/P (MAP) 123/88 (100) Pulse Ox 94 O2 Delivery Room Air (KINGSLEY CURTIS MD) Vital Signs/I&O Capillary Refill : Less Than 3 Seconds (DON ELIZABETH) Blood Pressure Mean: 100 Departure Communication (Admissions) Chest x-ray unremarkable. No obvious trauma or foreign body on exam. I suspect some post-procedural esophagitis but no emergent condition. No evidence or suspicions of AMI, PE, rupture or other emergent condition. (DON ELIZABETH) Impression Primary Impression: Esophagitis Disposition: HOME, SELF-CARE Condition: Stable Departure-Patient Inst. Decision time for Depature: 15:02 (DON ELIZABETH) Referrals: JIMY BENNETT MD (PCP/Family) Primary Care Physician Patient Instructions: Sore Throat in Adults Add. Discharge Instructions: Please follow up closely with your primary care provider. If you have any severe changes or worsening of symptoms, please return immediately to the emergency room. All discharge instructions reviewed with patient and/or family. Voiced understanding. Scripts Sucralfate (Carafate) 1 Gram/10 Ml Oral.susp 1 GM PO TID for 7 Days, #280 ML Prov: DON ELIZABETH 01/18/22 ATTENDING PHYSICIAN NOTE: I was physically present as attending physician in the emergency department during the care of this patient. I discussed this case with SOLIS Juarez as this patient was familiar to me from her ER visit prior to the recent admission. I concur that symptoms are likely due to esophagitis from recent hospital stay, either relating to GERD or to irritation from anesthesia and electrocardioversion. I did not personally examine this patient and I was not otherwise directly involved in the decision making or delivery of care for this patient. (KINGSLEY CURTIS MD) Copy Copies To 1: JIMY BENNETT MD Copies To 2: ANNAMARIE BAUMANN MD FACP FAC CCDS DON ELIZABETH Jan 18, 2022 14:22 KINGSLEY CURTIS MD Jan 18, 2022 21:06
--- NOTE | 2022-01-18 14:51 | Diagnostic Imaging Report ---
CHEST PA/LAT (2 VIEW) Indication: Shortness of breath Comparison: 01/16/2022 Findings: Right basilar bandlike atelectasis. Stable asymmetric elevation right hemidiaphragm. No pleural effusion or pneumothorax. Stable cardiomegaly. Stable left pectoral transvenous pacemaker. Impression: No acute cardiopulmonary process. Dictated by: Dictated on workstation # [id number]
[2022-01-18] MEDS ORDERED: SUCR1ORA5 PO (15:05)
== END 2022-01-18 15:18 | disposition home or self-care (01) ==
LOC: EDUNIT# 13:37 → ER 13:38
DX: K20.90 Esophagitis, unspecified without bleeding (principal); J44.9 Chronic obstructive pulmonary disease, unspecified; Z90.49 Acquired absence of other specified parts of digestive tract; Z90.710 Acquired absence of both cervix and uterus; Z28.310 Unvaccinated for COVID-19; Z99.89 Dependence on other enabling machines and devices
CPT/HCPCS: 71046

== ENCOUNTER → 2022-01-28 | Outpatient (CLI) | payer BC ==
[~2022-01-28] MED LIST changes: +SUCR1ORA5 PO
[2022-01-28 08:44] LABS: ALBUMIN 4.3 GM/DL (3.2-4.5); BILIRUBIN,TOTAL 0.6 MG/DL (0.1-1.0); CALCIUM 9.4 MG/DL (8.5-10.1); CREATININE SERUM 0.83 MG/DL (0.60-1.30); TOTAL PROTEIN 7.3 GM/DL (6.4-8.2)
== END ==
LOC: RAD 08:00
PROVIDERS: ATTEND Family Medicine
DX: Z12.31 Encounter for screening mammogram for malignant neoplasm of breast (principal)
CPT/HCPCS: 36415; 77063; 77067; 80053; 82140

== ENCOUNTER 2022-02-02 09:27 | Emergency (ER) | payer BC ==
[~2022-02-02] VITALS: Ht 167.7 cm; Wt 83.9 kg
[2022-02-02 09:56] LABS: CLARITY,URINE SL CLOUDY; COLOR,URINE RED; GLUCOSE, URINE (UA) NEGATIVE (NEGATIVE); KETONES,URINE TRACE (NEGATIVE); LEUKOCYTE ESTERASE ,URINE 1+ (NEGATIVE); NITRITE,URINE POSITIVE (NEGATIVE); PROTEIN,URINE 2+ (NEGATIVE)
[2022-02-02] MEDS ORDERED: NS IV 500 ML 500 ML IV ONE (10:00)
[2022-02-02] MEDS ORDERED: fentaNYL INJ 100 MCG/2 ML AMP IVP ONE (10:00)
[2022-02-02] MEDS ORDERED: ONDANSETRON 4 MG/2 ML (SDV) Z0FRAN IVP ONE ×2 (10:00→11:15)
--- NOTE | 2022-02-02 10:01 | ED GU-Female ---
General Chief Complaint: - 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 Stated Complaint: BLOOD IN URINE - BACK PAIN Nursing Triage Note: patient is c/o low back pain with decreased urine and back pain. has been on antibiotic for suspected urinary tract infection. verbalizes her urine looks like "coke". also c/o nausea Source: patient Exam Limitations: no limitations History of Present Illness Date Seen by Provider: Feb 02, 2022 Time Seen by Provider: 09:42 Initial Comments Patient presents ER by private conveyance chief complaint of the past 4 days been debility being right back and flank pain radiating down into her right groin and right umbilicus and associated with painful urination and hematuria. She went to urgent care on was given a shot of antibiotics and some basic lab work. She is on Xarelto with a history of atrial fibrillation and heart failure. She does have a history of kidney stones and says this does kind of feel like that and her pain comes and goes. She was given some hydrocodone's which take the edge off but do not completely control her pain. She is having s ome nausea without vomiting. She is also had some loose stools the past day or so. No body aches fevers or chills. She has had a couple laparoscopic surgeries, appendectomy, hysterectomy at age 29 related to endometriosis. She returned to urgent care yesterday and had another shot of IM antibiotics and was changed to ciprofloxacin. She has not had any recent scan for kidney stones. Allergies and Home Medications Allergies Coded Allergies: Latex, Natural Rubber (Unverified Allergy, Intermediate, Shortness of Breath, 09/27/20) Patient Home Medication List Home Medication List Reviewed: Yes Albuterol Sulfate (Albuterol Sulfate) 1.25 Mg/3 Ml Vial.neb, 3 ML NEB Q8H PRN for SHORTNESS OF BREATH Prescribed by: ELISE DUDLEY on 10/16/21 0904 Amiodarone HCl (Amiodarone HCl) 200 Mg Tablet, 200 MG PO BID Prescribed by: ELISE DUDLEY on 10/16/21 1236 Amoxicillin/Potassium Clav (Augmentin 500-125 Tablet) 500 Mg-125 Mg Tablet, 1 EACH PO TID Prescribed by: SOLIS COLLIER on 11/13/21 1321 Azithromycin (Azithromycin) 250 Mg Tablet, 250 MG PO UD Prescribed by: SOLIS COLLIER on 11/13/21 1321 Clonidine HCl (Clonidine HCl) 0.1 Mg Tablet, 0.1 MG PO BID PRN for BLOOD PRESSURE, (Reported) Entered as Reported by: LEOBARDO CARLIN on 08/26/21 1043 Dexlansoprazole (Dexlansoprazole Dr) 60 Mg Cap.dr.bp, 60 MG PO 1700, (Reported) Entered as Reported by: LEOBARDO CARLIN on 10/14/21 1102 Diazepam (Diazepam) 5 Mg Tablet, 5 MG PO BID PRN for ANXIETY, (Reported) Entered as Reported by: LEOBARDO CARLIN on 08/26/21 1043 Diltiazem HCl (Diltiazem 24Hr ER) 120 Mg Cap.er.24h, 120 MG PO BID Prescribed by: JONO SNYDER on 01/17/22 1253 Doxycycline Hyclate (Doxycycline Hyclate) 100 Mg Tablet, 100 MG PO BID Prescribed by: HUBERT GENTILE on 01/15/22 1650 Fish Oil/Dha/Epa (Fish Oil 1,200 mg Fish Oil) 1 Each Capsule, 1 EACH PO DAILY, (Reported) Entered as Reported by: LEOBARDO CARLIN on 08/26/21 1043 Fluticasone Furoate (Arnuity Ellipta) 100 Mcg Blst.w.dev, 100 MCG IH DAILY, (Rep orted) Entered as Reported by: LEOBARDO CARLIN on 10/14/21 110 Furosemide (Furosemide) 20 Mg Tablet, 20 MG PO DAILY, (Reported) Entered as Reported by: LEOBARDO CARLIN on 08/26/21 1043 Hydrocodone/Acetaminophen (Hydrocodone-Acetamin 5-325 mg) 5 Mg-325 Mg Tablet, 1 TAB PO Q4H PRN for PAIN-MODERATE (5-7) Prescribed by: SOLIS COLLIER on 11/13/21 1322 Hydrocodone/Acetaminophen (Hydrocodone-Acetamin 7.5-325) 7.5 Mg-325 Mg Tablet, 1 EACH PO Q6H PRN for PAIN-BREAKTHROUGH Prescribed by: HUBERT GENTILE on 01/15/22 1750 Levocetirizine Dihydrochloride (Levocetirizine Dihydrochloride) 5 Mg Tablet, 5 MG PO HS, (Reported) Entered as Reported by: LEOBARDO CARLIN on 10/14/21 1102 Levothyroxine Sodium (Levothyroxine Sodium) 112 Mcg Tablet, 112 MCG PO DAILY, (Reported) Entered as Reported by: LEOBARDO CARLIN on 08/26/21 1043 Metoclopramide HCl (Metoclopramide HCl) 10 Mg Tablet, 10 MG PO QIDACHS, (Reported) Entered as Reported by: LEOBARDO CARLIN on 08/26/21 1043 Ondansetron (Ondansetron Odt) 4 Mg Tab.rapdis, 4 MG PO Q6H PRN for NAUSEA/VOMITING-1ST LINE, (Reported) Entered as Reported by: LEOBARDO CARLIN on 10/14/21 1102 Rivaroxaban (Xarelto) 20 Mg Tablet, 20 MG PO 1700, (Reported) Entered as Reported by: LEOBARDO CARLIN on 10/14/21 1102 Sucralfate (Carafate) 1 Gram/10 Ml Oral.susp, 1 GM PO TID Prescribed by: Fady Elizabeth on 01/18/22 1505 Sumatriptan Succinate (Imitrex) 50 Mg Tab, 50 MG PO DAILY PRN for HEADACHE Prescribed by: ELISE DUDLEY on 10/16/21 0904 Vitamin E Mixed (Vitamin E) 100 Unit Tablet, 100 UNIT PO DAILY, (Reported) Entered as Reported by: LEOBARDO CARLIN on 08/26/21 1043 [Vit C/D3/Zinc] , 1 EA PO DAILY, (Reported) Entered as Reported by: LEOBARDO CARLIN on 10/14/21 1102 Review of Systems Review of Systems Constitutional: No chills, No diaphoresis EENTM: No ear discharge, No ear pain Respiratory: No cough, No short of breath Cardiovascular: No chest pain, No edema Gastrointestinal: abdominal pain; No constipation; diarrhea, nausea; No vomiting Genitourinary: denies burning, denies discharge Musculoskeletal: see HPI, back pain; No joint pain Skin: no symptoms reported All Other Systemes Reviewed Negative Unless Noted: Yes Past Ftkzast-Qqzyxr-Lvpgpj Hx Patient Social History Tobacco Use?: No Use of E-Cig and/or Vaping dev: No Substance use?: No Immunizations Up To Date Tetanus Booster (TDap): Less than 5yrs PED Vaccines UTD: Yes First/Initial COVID19 Vaccinat: NONE Second COVID19 Vaccination Arley: NONE\\ Third COVID19 Vaccination Date: NONE Seasonal Allergies Seasonal Allergies: Yes Past Medical History Surgery/Hospitalization HX: pacemaker, CHF, A-fib, Cardiac cath, 3 cardiac ablasions, hysterectomy, appendectomy, tonsillectomy, titi, hiatal hernia Surgeries: Yes (D&C'S, LAPAROSCOPY, UVULA REMOVED, hiatal H. x 2 repair, c ardiac ablations) Appendectomy, Bladder Surgery, Cardiac, Gallbladder, Hysterectomy, Pacemaker, Tonsillectomy Respiratory: Yes (Right diaphragmatic paralysis) COPD Cardiac: Yes (ABLATION, CHF) Atrial Fibrillation, High Cholesterol, Hypertension, Valvular Heart Disease Neurological: Yes (Right diaphragmatic paralysis) Headaches /Migraines [employer] History: Hysterectomy, 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, Menopausal Genitourinary: No (BLADDER SLING) Gastrointestinal: Yes Liver Disease/Jaundice, Reina's Esophagus, Polyps, Hiatal Hernia Musculoskeletal: Yes Chronic Back Pain Endocrine: Yes Hypothyroidsim HEENT: No Loss of Vision: Denies Hearing Impairment: Denies Cancer: No Psychosocial: Yes Depression Integumentary: Yes Eczema, Psoriasis Blood Disorders: No Family Medical History Colon cancer Noncontributory Physical Exam Vital Signs Vital Signs - First Documented 02/02/22 09:45 Temp 36.3 Pulse 4 Resp 20 B/P (MAP) 154/102 (119) Pulse Ox 96 O2 Delivery Room Air Capillary Refill : Height, Weight, BMI Height: '" Weight: lbs. oz. kg; 29.00 BMI Method: General Appearance: WD/WN, mild distress HEENT: PERRL/EOMI; No pharynx normal (Mildly dry oral mucosa) Neck: full range of motion, normal inspection Cardiovascular: normal peripheral pulses, regular rate, rhythm Respiratory: lungs clear, normal breath sounds, no respiratory distress, no a ccessory muscle use Gastrointestinal: soft, tenderness (Mild right-sided tenderness without mesenteric signs) Progress/Results/Core Measures Suspected Sepsis SIRS Temperature: Pulse: 4 Respiratory Rate: 20 Laboratory Tests 02/02/22 10:06: White Blood Count 7.0 Blood Pressure 154 /102 Mean: 119 Laboratory Tests 02/02/22 10:06: Creatinine 0.88, INR Comment 1.9H, Platelet Count 260, Total Bilirubin 0.5 Results/Orders Lab Results Laboratory Tests Test 02/02/22 09:50 7/24/22 10:06 Range/Units Urine Color RED H Urine Clarity SL CLOUDY Urine pH 5.0 5-9 Urine Specific [place] >=1.030 1.016-1.022 Urine Protein 2+ H NEGATIVE Urine Glucose (UA) NEGATIVE NEGATIVE Urine Ketones TRACE H NEGATIVE Urine Nitrite POSITIVE H NEGATIVE Urine Bilirubin 1+ H NEGATIVE Urine Urobilinogen 1.0 < = 1.0 MG/DL Urine Leukocyte Esterase 1+ H NEGATIVE Urine RBC (Auto) 3+ H NEGATIVE Urine RBC TNTC H /HPF Urine WBC 2-5 /HPF Urine Squamous Epithelial Cells NONE /HPF Urine Crystals PRESENT H /LPF Urine Calcium Oxalate Crystals FEW H /LPF Urine Bacteria FEW H /HPF Urine Casts NONE /LPF Urine Mucus NEGATIVE /LPF Urine Culture Indicated YES White Blood Count 7.0 4.3-11.0 10^3/uL Red Blood Count 4.80 3.80-5.11 10^6/uL Hemoglobin 13.8 11.5-16.0 g/dL Hematocrit 41 35-52 % Mean Corpuscular Volume 86 80-99 fL Mean Corpuscular Hemoglobin 29 25-34 pg Mean Corpuscular Hemoglobin Concent 33 32-36 g/dL Red Cell Distribution Width 12.9 10.0-14.5 % Platelet Count 260 130-400 10^3/uL Mean Platelet Volume 10.2 9.0-12.2 fL Immature Granulocyte % (Auto) 0 % Neutrophils (%) (Auto) 57 42-75 % Lymphocytes (%) (Auto) 34 12-44 % Monocytes (%) (Auto) 7 0-12 % Eosinophils (%) (Auto) 2 0-10 % Basophils (%) (Auto) 0 0-10 % Neutrophils # (Auto) 4.0 1.8-7.8 10^3/uL Lymphocytes # (Auto) 2.4 1.0-4.0 10^3/uL Monocytes # (Auto) 0.5 0.0-1.0 10^3/uL Eosinophils # (Auto) 0.1 0.0-0.3 10^3/uL Basophils # (Auto) 0.0 0.0-0.1 10^3/uL Immature Granulocyte # (Auto) 0.0 0.0-0.1 10^3/uL Prothrombin Time 22.3 H 12.2-14.7 SEC INR Comment 1.9 H 0.8-1.4 Sodium Level 141 135-145 MMOL/L Potassium Level 4.1 3.6-5.0 MMOL/L Chloride Level 105 98-107 MMOL/L Carbon Dioxide Level 23 21-32 MMOL/L Anion Gap 13 5-14 MMOL/L Blood Urea Nitrogen 16 7-18 MG/DL Creatinine 0.88 0.60-1.30 MG/DL Estimat Glomerular Filtration Rate 78 BUN/Creatinine Ratio 18 Glucose Level 103 70-105 MG/DL Calcium Level 9.5 8.5-10.1 MG/DL Corrected Calcium 9.3 8.5-10.1 MG/DL Total Bilirubin 0.5 0.1-1.0 MG/DL Aspartate Amino Transf (AST/SGOT) 27 5-34 U/L Alanine Aminotransferase (ALT/SGPT) 43 0-55 U/L Alkaline Phosphatase 87 40-136 U/L C-Reactive Protein High Sensitivity 0.27 0.00-0.50 MG/DL Total Protein 6.8 6.4-8.2 GM/DL Albumin 4.2 3.2-4.5 GM/DL My Orders Orders - HBUERT GENTILE Ua Culture If Indicated (02/02/22 09:29) Cbc With Automated Diff (02/02/22 09:56) Comprehensive Metabolic Panel (02/02/22 09:56) Hs C Reactive Protein (02/02/22 09:56) Protime With Inr (02/02/22 09:56) Ct Abd/Pelvis Wo(Kidney Stone) (02/02/22 09:56) Ed Iv/Invasive Line Start (02/02/22 09:56) Ns Iv 500 Ml (Sodium Chloride 0.9%) (02/02/22 10:00) Fentanyl Inj (Sublimaze Injection) (02/02/22 10:00) Ondansetron Injection (Zofran Injectio (02/02/22 10:00) Urine Culture (02/02/22 09:50) Ondansetron Injection (Zofran Injectio (02/02/22 11:15) Ondansetron Injection (Zofran Injectio (02/02/22 11:03) Abdomen/Kub 1view (02/02/22 11:15) Medications Given in ED Current Medications Medications Dose Ordered Sig/Giselle Route Start Time Stop Time Status Last Admin Dose Admin Fentanyl Citrate 50 mcg ONCE ONCE IVP 02/02/22 10:00 02/02/22 10:01 DC 02/02/22 10:25 50 MCG Ondansetron HCl 4 mg ONCE ONCE IVP 02/02/22 10:00 02/02/22 10:01 DC 02/02/22 10:25 4 MG Ondansetron HCl 4 mg ONCE ONCE IVP 02/02/22 11:15 02/02/22 11:16 DC 02/02/22 11:07 4 MG Sodium Chloride 500 ml @ 0 mls/hr Q0M ONCE IV 02/02/22 10:00 02/02/22 10:01 DC 02/02/22 10:25 500 MLS/HR Vital Signs/I&O 02/02/22 09:45 Temp 36.3 Pulse 4 Resp 20 B/P (MAP) 154/102 (119) Pulse Ox 96 O2 Delivery Room Air Capillary Refill : Blood Pressure Mean: 119 Progress Note #1: Time: 10:00 Progress Note Symptoms are progressing despite good doses of IM antibiotics and p.o. antibiotics. Suspect kidney stone versus pyelonephritis. We will check some labs to check her kidney function. We will give her fentanyl for pain. We will avoid NSAIDs since she is on Xarelto. 4 mg Zofran for nausea. 500 cc of normal saline for rehydration. Progress Note #2: Time: 11:23 Progress Note Pain is tolerable and the patient's nausea is gone after 8 mg of Zofran. Diagnostic Imaging Diagonstic Imaging: CT Plain Films/CT/US/NM/MRI: abdomen, pelvis (Kidney stone study) Comments [facility], [place] NAME: OLESYA NEVES [facility] REC#: [id number] PT STATUS: REG ER : 1965 PHYSICIAN: HUBERT GENTILE MD ADMIT DATE: 02/02/22/ER Signed Date of Exam:02/02/22 CT ABD/PELVIS WO(KIDNEY STONE) PROCEDURE: CT urinary tract, rule out kidney stone. TECHNIQUE: Multiple contiguous axial images were obtained through the abdomen and pelvis without the use of intravenous contrast. Auto Exposure Controls were utilized during the CT exam to meet ALARA standards for radiation dose reduction. INDICATION: Low back pain. Decreased urine output. Suspected urinary tract infection. COMPARISON: 11/13/2021. FINDINGS: The heart is unremarkable. Consolidative opacities are seen in the right lung base with subsegmental atelectasis in the left lung base. Small hiatal hernia is seen. There has been migration of a calculus into the right renal pelvis measuring 0.6 cm with mild right-sided hydronephrosis. No hydronephrosis is seen on the left. A nonobstructing calculus is seen in the mid left kidney measuring 0.3 cm. No perinephric fat stranding. The urinary bladder is nondistended. The liver, spleen, pancreas, and adrenal glands have a normal noncontrast CT appearance. There is no pathologically enlarged mesenteric or retroperitoneal adenopathy. The bowel loops are nondilated. The appendix is surgically absent. There is no free fluid or free air. No acute osseous abnormalities. There is no free air, loculated collection, or adenopathy in the pelvis. IMPRESSION: 1. Interval migration of a calculus into the right renal pelvis which measures 0.6 cm. Associated mild right-sided hydronephrosis is seen. 2. Consolidative opacities in the right lung base, similar to the prior exam and likely representing chronic atelectasis/scarring. 3. Small hiatal hernia. Dictated by: Dictated on workstation # [id number] Dict: 02/02/22 1049 Trans: 02/02/22 1106 [id number] Interpreted by: SHERRY NOEL DO Electronically signed by: SHERRY NOEL DO 02/02/22 1106 Reviewed: Reviewed by Me Diagonstic Imaging: Xray Plain Films/CT/US/NM/MRI: abdomen, pelvis Reviewed: Reviewed by Me Departure Impression Primary Impression: Ureteral calculus, right Disposition: 01 HOME, SELF-CARE Condition: Stable Departure-Patient Inst. Decision time for Depature: 11:23 Referrals: JIMY BENNETT MD (PCP/Family) Primary Care Physician TYESHA POPE MD Patient Instructions: Kidney Stones (DC) Add. Discharge Instructions: Call the urologist to make a follow-up appointment this week for stone removal. Hydrocodone 1 to 2 tablets every 4 hours as needed to control pain. Ondansetron 1 to 2 tablets every 6 hours as needed for nausea or vomiting. Drink plenty of fluids. Flomax 1 capsule daily until stone is gone. Continue taking your antibiotics as prescribed. Return to the ER for high fever above 102.5, intractable vomiting or intractable pain. All discharge instructions reviewed with patient and/or family. Voiced understanding. Scripts Tamsulosin HCl (Flomax) 0.4 Mg Cap 0.4 MG PO DAILY for 7 Days, #7 CAP 0 Refills Prov: HUBERT GENTILE 02/02/22 Hydrocodone/Acetaminophen (Hydrocodone-Acetamin 5-325 mg) 5 Mg-325 Mg Tablet 1-2 TAB PO Q4H PRN for PAIN-MODERATE (5-7), #20 TAB 0 Refills Prov: HUBERT GENTILE 02/02/22 Ondansetron (Ondansetron Odt) 4 Mg Tab.rapdis 4-8 MG PO Q6H PRN for NAUSEA/VOMITING, #15 TAB 0 Refills Prov: HUBERT GENTILE 02/02/22 Copy Copies To 1: TYESHA POPE MD, TITUS J Feb 02, 2022 10:01
[2022-02-02 10:15] LABS: BACTERIA,URINE FEW /HPF; BILIRUBIN,URINE 1+ (NEGATIVE); CALCIUM OXALATE CRYSTALS,UR FEW /LPF; RBC,URINE TNTC /HPF
[2022-02-02 10:16] LABS: BASOPHILS % (AUTO) 0 % (0-10); EOSINOPHILS # (AUTO) 0.1 10^3/uL (0.0-0.3); EOSINOPHILS % (AUTO) 2 % (0-10); HEMATOCRIT 41 % (35-52); HEMOGLOBIN 13.8 g/dL (11.5-16.0); LYMPHOCYTES # (AUTO) 2.4 10^3/uL (1.0-4.0); LYMPHOCYTES % (AUTO) 34 % (12-44); MEAN CORPUSCULAR HEMOGLOBIN 29 pg (25-34); MEAN CORPUSCULAR HGB CONC 33 g/dL (32-36); MEAN CORPUSCULAR VOLUME 86 fL (80-99); MEAN PLATELET VOLUME 10.2 fL (9.0-12.2); MONOCYTES # (AUTO) 0.5 10^3/uL (0.0-1.0); MONOCYTES % (AUTO) 7 % (0-12); NEUTROPHILS % (AUTO) 57 % (42-75); PLATELET COUNT 260 10^3/uL (130-400)
[2022-02-02 10:27] LABS: ALBUMIN 4.2 GM/DL (3.2-4.5); POTASSIUM 4.1 MMOL/L (3.6-5.0)
[2022-02-02 10:29] LABS: CALCIUM 9.5 MG/DL (8.5-10.1)
[2022-02-02 10:30] LABS: INR 1.9 (0.8-1.4); PROTHROMBIN TIME PATIENT 22.3 SEC (12.2-14.7); TOTAL PROTEIN 6.8 GM/DL (6.4-8.2)
[2022-02-02 10:32] LABS: BILIRUBIN,TOTAL 0.5 MG/DL (0.1-1.0)
[2022-02-02 10:34] LABS: CREATININE SERUM 0.88 MG/DL (0.60-1.30)
[2022-02-02] MEDS ORDERED: ONDANSETRON 4 MG/2 ML (SDV) Z0FRAN ONE (11:03)
--- NOTE | 2022-02-02 11:05 | Diagnostic Imaging Report ---
PROCEDURE: CT urinary tract, rule out kidney stone. TECHNIQUE: Multiple contiguous axial images were obtained through the abdomen and pelvis without the use of intravenous contrast. Auto Exposure Controls were utilized during the CT exam to meet ALARA standards for radiation dose reduction. INDICATION: Low back pain. Decreased urine output. Suspected urinary tract infection. COMPARISON: 11/13/2021. FINDINGS: The heart is unremarkable. Consolidative opacities are seen in the right lung base with subsegmental atelectasis in the left lung base. Small hiatal hernia is seen. There has been migration of a calculus into the right renal pelvis measuring 0.6 cm with mild right-sided hydronephrosis. No hydronephrosis is seen on the left. A nonobstructing calculus is seen in the mid left kidney measuring 0.3 cm. No perinephric fat stranding. The urinary bladder is nondistended. The liver, spleen, pancreas, and adrenal glands have a normal noncontrast CT appearance. There is no pathologically enlarged mesenteric or retroperitoneal adenopathy. The bowel loops are nondilated. The appendix is surgically absent. There is no free fluid or free air. No acute osseous abnormalities. There is no free air, loculated collection, or adenopathy in the pelvis. IMPRESSION: 1. Interval migration of a calculus into the right renal pelvis which measures 0.6 cm. Associated mild right-sided hydronephrosis is seen. 2. Consolidative opacities in the right lung base, similar to the prior exam and likely representing chronic atelectasis/scarring. 3. Small hiatal hernia. Dictated by: Dictated on workstation # [id number]
[2022-02-02] MEDS ORDERED: ACHD5005 PO (11:25)
[2022-02-02] MEDS ORDERED: ONDA4TAB11 PO (11:25)
[2022-02-02] MEDS ORDERED: TMSL.4C PO (11:25)
[2022-02-02 11:45] VITALS: BP 121/94
--- NOTE | 2022-02-02 11:45 | Diagnostic Imaging Report ---
INDICATION: Abdominal pain. COMPARISON: CT from same date. TECHNIQUE: Single radiograph of the abdomen dated 02/02/2022. FINDINGS: A 6 mm calcification is identified to the right of the L4 transverse process. This is felt to relate to a vascular calcification as noted on recent CT examination. Additional 7 mm calcification is noted overlying the expected location of the right renal pelvis, corresponding to calculus noted on recent CT examination. No suspicious calcifications overlying the left renal shadow. Phleboliths within the lower pelvis. Nonobstructed bowel gas pattern. [place] left curvature of the spine with mild scattered degenerative changes. No acute osseous abnormality. No free air. IMPRESSION: 7 mm calcification overlying the expected location of the right renal pelvis likely corresponds to recently identified renal calculus. Nonobstructed bowel gas pattern without free air. Dictated by: Dictated on workstation # [id number]
== END 2022-02-02 11:46 | disposition home or self-care (01) ==
LOC: EDUNIT# 09:27 → ER 09:28
DX: N13.2 Hydronephrosis with renal and ureteral calculous obstruction (principal); I48.91 Unspecified atrial fibrillation; Z79.01 Long term (current) use of anticoagulants; Z28.310 Unvaccinated for COVID-19
CPT/HCPCS: 36415; 74018; 74176; 80053; 81000; 85025; 85610; 86141; 87077; 87088

== ENCOUNTER → 2022-02-03 | Outpatient (CLI) | payer BC ==
[~2022-02-03] MED LIST changes: +CIPR500T5 PO; +HYDR-3820 PO; +SENN-75 PO; +SPIR25TA5 PO; +TIOT4MIS5 IH; +TMSL.4C PO
--- NOTE | 2022-02-03 17:47 | Diagnostic Imaging Report ---
INDICATION: Follow-up renal calculi. COMPARISON: 02/02/2022. FINDINGS: Single frontal radiographic view of the abdomen was obtained. No unexpected extraosseous calcifications are seen on this exam, although bilateral renal shadows are obscured by overlying colonic stool and enteric gas. Small bowel loops are otherwise within normal limits. There is no large collection of free intraperitoneal air. No unexpected radiopaque foreign bodies are seen. IMPRESSION: 1. No unexpected extraosseous calcifications are seen on today's exam, although renal shadows are obscured, right greater than left. 2. Nonobstructed small bowel gas pattern. Dictated by: Dictated on workstation # [id number]
== END ==
LOC: RAD 12:18
PROVIDERS: ATTEND Urology
DX: N20.0 Calculus of kidney (principal)
CPT/HCPCS: 74018

== ENCOUNTER 2022-02-04 05:37 | Outpatient (CLI) | payer BC ==
[~2022-02-04] VITALS: Ht 157.5 cm; Wt 90.5 kg
[~2022-02-04 05:37] MED LIST changes: -CIPR500T5 PO; -HYDR-3820 PO; -SENN-75 PO; -SPIR25TA5 PO; -TIOT4MIS5 IH
[2022-02-04] MEDS ORDERED: SENN-75 PO (12:40)
[2022-02-04] MEDS ORDERED: CIPR500T5 PO (12:40)
[2022-02-04] MEDS ORDERED: PANT40TA52 PO (12:40)
[2022-02-04] MEDS ORDERED: SPIR25TA5 PO (12:40)
[2022-02-04] MEDS ORDERED: TIOT4MIS5 IH (12:40)
[2022-02-04] MEDS ORDERED: HYDR-3820 PO (12:40)
[2022-02-05] MEDS ORDERED: HYDR-3817 PO (13:14)
== END 2022-02-04 12:48 ==
LOC: PREOP 05:37
PROVIDERS: ATTEND Urology
DX: Z01.818 Encounter for other preprocedural examination (principal)

== ENCOUNTER 2022-02-05 09:45 | Emergency (ER) | payer BC ==
[~2022-02-05 09:45] MED LIST changes: +CIPR500T5 PO; +HYDR-3820 PO; +SENN-75 PO; +SPIR25TA5 PO; +TIOT4MIS5 IH
[2022-02-05] MEDS ORDERED: morphine INJ 10 MG/ML 1ML (SYR OR VIAL) IVP STA ×2 (10:25→11:57)
--- NOTE | 2022-02-05 10:29 | ED Abdominal Pain ---
General Chief Complaint: Abdominal/GI Problems Stated Complaint: BACK/ABD PAIN, KIDNEY STONE Nursing Triage Note: PT AMB TO RM 2 WITH C/O WORSENING PAIN FROM MULTIPLE KIDNEY STONES THAT SHE WAS SEEN HERE ON THURSDAY FOR. PT SAID DR JENKINS TOLD HER TO COME TO ER IF PAIN WAS WORSE Source of Information: Patient Exam Limitations: No Limitations History of Present Illness Date Seen by Provider: Feb 05, 2022 Time Seen by Provider: 10:20 Initial Comments Patient is a 56-year-old female who presents to the emergency department with a chief complaint of severe right flank pain. She was diagnosed with a 6 to 7 mm kidney stone on January 31. She has been at home taking pain medication with steadily worsening pain. She is currently on antibiotics. She denies fevers or chills. She is very nauseous. She has been a little constipated but had a small bowel movement this morning. She went off her blood thinner and states that her urine is currently clear. She did see and is scheduled for renal stent placement tomorrow. She states that he told her if her pain became unbearable to come to the emergency department for admission for the stent placement. All other review of systems reviewed and negative except as stated. Timing/Duration: 4-5 Days Severity/Quality: Severe, Aching Location: Flank (right) Radiation: Other (lower abdomen) Associated Symptoms: Nausea/Vomiting Allergies and Home Medications Allergies Coded Allergies: Latex, Natural Rubber (Unverified Allergy, Intermediate, Shortness of Breath, PARALIZED DIAHPHRAM, 02/04/22) Patient Home Medication List Home Medication List Reviewed: Yes Albuterol Sulfate (Albuterol Sulfate) 1.25 Mg/3 Ml Vial.neb, 3 ML NEB Q8H PRN for SHORTNESS OF BREATH Prescribed by: ELISE DUDLEY on 10/16/21 0904 Ciprofloxacin HCl (Ciprofloxacin HCl) 500 Mg Tablet, 500 MG PO BID, (Reported) Entered as Reported by: MYRTLE VANN on 02/04/22 1240 Clonidine HCl (Clonidine HCl) 0.1 Mg Tablet, 0.1 MG PO BID PRN for BLOOD PRESSURE, (Reported) Entered as Reported by: LEOBARDO CARLIN on 08/26/21 1043 Diazepam (Diazepam) 5 Mg Tablet, 5 MG PO BID PRN for ANXIETY, (Reported) Entered as Reported by: LEOBARDO CARLIN on 08/26/21 1043 Diltiazem HCl (Diltiazem 24Hr ER) 120 Mg Cap.er.24h, 120 MG PO BID Prescribed by: JONO SNYDER on 01/17/22 1253 Fish Oil/Dha/Epa (Fish Oil 1,200 mg Fish Oil) 1 Each Capsule, 1 EACH PO DAILY, (Reported) Entered as Reported by: LEOBARDO CARLIN on 08/26/21 104 Furosemide (Furosemide) 20 Mg Tablet, 40 MG PO DAILY, (Reported) Entered as Reported by: LEOBARDO CARLIN on 08/26/21 104 Hydrocodone/Acetaminophen (Hydrocodone-Acetamin 10-325 mg) 10 Mg-325 Mg Tablet, 1 EA PO TID, (Reported) Entered as Reported by: MYRTLE VANN on 02/04/22 124 Hydrocodone/Acetaminophen (Hydrocodone-Acetamin 7.5-325) 7.5 Mg-325 Mg Tablet, 1 EACH PO Q6H PRN for PAIN-MODERATE (5-7) Prescribed by: ANDREE BUTT on 02/05/22 1314 Levocetirizine Dihydrochloride (Levocetirizine Dihydrochloride) 5 Mg Tablet, 5 MG PO HS, (Reported) Entered as Reported by: LEOBARDO CARLIN on 10/14/21 110 Pantoprazole Sodium (Pantoprazole Sodium) 40 Mg Tablet.dr, 1 EA PO DAILY, (Reported) Entered as Reported by: MYRTLE VANN on 02/04/22 1240 Rivaroxaban (Xarelto) 20 Mg Tablet, 20 MG PO 1700, (Reported) Entered as Reported by: LEOBARDO CARLNI on 10/14/21 1102 Sennosides/Docusate Sodium (Stool Softener Tablet) Unknown Strength Tablet, Unknown Dose PO, (Reported) Entered as Reported by: MYRTLE VANN on 02/04/22 124 Spironolactone (Spironolactone) 25 Mg Tablet, 1 EA PO DAILY, (Reported) Entered as Reported by: MYRTLE VANN on 02/04/22 124 Sumatriptan Succinate (Imitrex) 50 Mg Tab, 50 MG PO DAILY PRN for HEADACHE Prescribed by: ELISE DUDLEY on 10/16/21 0904 Tamsulosin HCl (Flomax) 0.4 Mg Cap, 0.4 MG PO DAILY Prescribed by: HUBERT GENTILE on 02/02/22 1125 Tiotropium [place] (Spiriva Respimat 1.25MCG/ACTUATION) 1.25 Mcg/Actuation Mist.inhal, 1 PUFF IH UD, (Reported) Entered as Reported by: MYRTLE VANN on 02/04/22 1240 Vitamin E Mixed (Vitamin E) 100 Unit Tablet, 100 UNIT PO DAILY, (Reported) Entered as Reported by: LEOBARDO CARLIN on 08/26/21 1043 [Vit C/D3/Zinc] , 1 EA PO DAILY, (Reported) Entered as Reported by: LEOBARDO CARLIN on 10/14/21 1102 Discontinued Medications Amiodarone HCl (Amiodarone HCl) 200 Mg Tablet, 200 MG PO BID Discontinued Reason: No Longer Taking Prescribed by: ELISE DUDLEY on 10/16/21 1236 Amoxicillin/Potassium Clav (Augmentin 500-125 Tablet) 500 Mg-125 Mg Tablet, 1 EACH PO TID Discontinued Reason: No Longer Taking Prescribed by: SOLIS COLLIER on 11/13/21 1321 Azithromycin (Azithromycin) 250 Mg Tablet, 250 MG PO UD Discontinued Reason: No Longer Taking Prescribed by: SOLIS COLLIER on 11/13/21 1321 Dexlansoprazole (Dexlansoprazole Dr) 60 Mg Cap.bp, 60 MG PO 1700, (Reported) Discontinued Reason: No Longer Taking Entered as Reported by: LEOBARDO CARLIN on 10/14/21 1102 Doxycycline Hyclate (Doxycycline Hyclate) 100 Mg Tablet, 100 MG PO BID Discontinued Reason: No Longer Taking Prescribed by: HUBERT GENTILE on 01/15/22 1650 Fluticasone Furoate (Arnuity Ellipta) 100 Mcg Blst.w.dev, 100 MCG IH DAILY, (Reported) Discontinued Reason: No Longer Taking Entered as Reported by: LEOBARDO CARLIN on 10/14/21 1102 Hydrocodone/Acetaminophen (Hydrocodone-Acetamin 5-325 mg) 5 Mg-325 Mg Tablet, 1 TAB PO Q4H PRN for PAIN-MODERATE (5-7) Discontinued Reason: Referral/FU Appt-Addtl Prescribed by: SOLIS COLLIER on 11/13/21 1322 Hydrocodone/Acetaminophen (Hydrocodone-Acetamin 7.5-325) 7.5 Mg-325 Mg Tablet, 1 EACH PO Q6H PRN for PAIN-BREAKTHROUGH Discontinued Reason: No Longer Taking Prescribed by: HUBERT GENTILE on 01/15/22 1750 Hydrocodone/Acetaminophen (Hydrocodone-Acetamin 5-325 mg) 5 Mg-325 Mg Tablet, 1- 2 TAB PO Q4H PRN for PAIN-MODERATE (5-7) Discontinued Reason: No Longer Taking Prescribed by: HUBERT GENTILE on 02/02/22 1126 Levothyroxine Sodium (Levothyroxine Sodium) 112 Mcg Tablet, 112 MCG PO DAILY, (Reported) Discontinued Reason: No Longer Taking Entered as Reported by: LEOBARDO CARLIN on 08/26/21 1043 Metoclopramide HCl (Metoclopramide HCl) 10 Mg Tablet, 10 MG PO QIDACHS, (Reported) Discontinued Reason: No Longer Taking Entered as Reported by: LEOBARDO CARLIN on 08/26/21 1043 Ondansetron (Ondansetron Odt) 4 Mg Tab.rapdis, 4 MG PO Q6H PRN for NAUSEA/VOMITING-1ST LINE, (Reported) Discontinued Reason: No Longer Taking Entered as Reported by: LEOBARDO CARLIN on 10/14/21 1102 Ondansetron (Ondansetron Odt) 4 Mg Tab.rapdis, 4-8 MG PO Q6H PRN for NAUSEA/VOMITING Discontinued Reason: No Longer Taking Prescribed by: HUBERT GENTILE on 02/02/22 1125 Sucralfate (Carafate) 1 Gram/10 Ml Oral.susp, 1 GM PO TID Discontinued Reason: No Longer Taking Prescribed by: Fady Elizabeth on 01/18/22 1505 Review of Systems Review of Systems Constitutional: see HPI EENTM: No Symptoms Reported Respiratory: No Symptoms Reported Cardiovascular: No Symptoms Reported Gastrointestinal: Abdominal Pain, Nausea Genitourinary: No Symptoms Reported Musculoskeletal: no symptoms reported Skin: no symptoms reported All Other Systems Reviewed Negative Unless Noted: Yes Past Mnaphnp-Qrzlhx-Hzgjcs Hx Patient Social History Tobacco Use?: No Use of E-Cig and/or Vaping dev: No Substance use?: No Alcohol Use?: No Pt feels they are or have been: No Immunizations Up To Date Tetanus Booster (TDap): Less than 5yrs PED Vaccines UTD: Yes First/Initial COVID19 Vaccinat: NONE Second COVID19 Vaccination Arley: NONE\\ Third COVID19 Vaccination Date: NONE Seasonal Allergies Seasonal Allergies: Yes Past Medical History Surgery/Hospitalization HX: pacemaker, CHF, A-fib, Cardiac cath, 3 cardiac ablasions, hysterectomy, appendectomy, tonsillectomy, titi, hiatal hernia Surgeries: Yes (D&C'S, LAPAROSCOPY, UVULA REMOVED, hiatal H. 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: Hysterectomy, 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, Menopausal Genitourinary: Yes (BLADDER SLING) Gastrointestinal: Yes (FATTY LIVER, SLOW MOVING STOMACH) Gastroesophageal Reflux, Liver Disease/Jaundice, Reina's Esophagus, Hemorrhoids, Polyps, Hiatal Hernia, Gall Bladder Disease Musculoskeletal: Yes Chronic Back Pain Endocrine: Yes Hypothyroidsim HEENT: No Loss of Vision: Denies Hearing Impairment: Denies Cancer: No Colon Psychosocial: Yes Depression Integumentary: Yes Eczema, Psoriasis Blood Disorders: No Family Medical History Colon cancer Noncontributory Physical Exam Vital Signs Vital Signs - First Documented 02/05/22 10:04 Temp 36.0 Pulse 85 Resp 18 B/P (MAP) 144/82 (102) Capillary Refill : Height/Weight/BMI Height: '" Weight: lbs. oz. kg; 36.48 BMI Method: General Appearance: WD/WN, no apparent distress HEENT: PERRL/EOMI Neck: normal inspection Respiratory: lungs clear, normal breath sounds, no respiratory distress, no accessory muscle use Cardiovascular: regular rate, rhythm Gastrointestinal: soft, tenderness (diffuse) Back: CVA tenderness (R) Neurologic/Psychiatric: alert, normal mood/affect, oriented x 3 Skin: normal color, warm/dry Progress/Results/Core Measures Results/Orders Lab Results Laboratory Tests Test 02/05/22 10:13 02/05/22 10:29 Range/Units White Blood Count 6.1 4.3-11.0 10^3/uL Red Blood Count 4.85 3.80-5.11 10^6/uL Hemoglobin 14.1 11.5-16.0 g/dL Hematocrit 42 35-52 % Mean Corpuscular Volume 86 80-99 fL Mean Corpuscular Hemoglobin 29 25-34 pg Mean Corpuscular Hemoglobin Concent 34 32-36 g/dL Red Cell Distribution Width 13.0 10.0-14.5 % Platelet Count 254 130-400 10^3/uL Mean Platelet Volume 10.5 9.0-12.2 fL Immature Granulocyte % (Auto) 0 % Neutrophils (%) (Auto) 51 42-75 % Lymphocytes (%) (Auto) 39 12-44 % Monocytes (%) (Auto) 6 0-12 % Eosinophils (%) (Auto) 2 0-10 % Basophils (%) (Auto) 1 0-10 % Neutrophils # (Auto) 3.2 1.8-7.8 10^3/uL Lymphocytes # (Auto) 2.4 1.0-4.0 10^3/uL Monocytes # (Auto) 0.4 0.0-1.0 10^3/uL Eosinophils # (Auto) 0.1 0.0-0.3 10^3/uL Basophils # (Auto) 0.0 0.0-0.1 10^3/uL Immature Granulocyte # (Auto) 0.0 0.0-0.1 10^3/uL Sodium Level 139 135-145 MMOL/L Potassium Level 4.3 3.6-5.0 MMOL/L Chloride Level 102 98-107 MMOL/L Carbon Dioxide Level 25 21-32 MMOL/L Anion Gap 12 5-14 MMOL/L Blood Urea Nitrogen 12 7-18 MG/DL Creatinine 0.95 0.60-1.30 MG/DL Estimat Glomerular Filtration Rate 71 BUN/Creatinine Ratio 13 Glucose Level 108 H 70-105 MG/DL Calcium Level 9.5 8.5-10.1 MG/DL Urine Color YELLOW Urine Clarity CLOUDY Urine pH 6.0 5-9 Urine Specific Gem 1.020 1.016-1.022 Urine Protein 1+ H NEGATIVE Urine Glucose (UA) NEGATIVE NEGATIVE Urine Ketones NEGATIVE NEGATIVE Urine Nitrite NEGATIVE NEGATIVE Urine Bilirubin NEGATIVE NEGATIVE Urine Urobilinogen 0.2 < = 1.0 MG/DL Urine Leukocyte Esterase 1+ H NEGATIVE Urine RBC (Auto) 3+ H NEGATIVE Urine RBC >100 H /HPF Urine WBC 5-10 H /HPF Urine Squamous Epithelial Cells 2-5 /HPF Urine Renal Epithelial Cells 0-2 /HPF Urine Crystals NONE /LPF Urine Bacteria FEW H /HPF Urine Casts NONE /LPF Urine Mucus NEGATIVE /LPF Urine Culture Indicated YES My Orders Orders - ANDREE BUTT MD Ed Iv/Invasive Line Start (02/05/22 10:25) Cbc With Automated Diff (02/05/22 10:25) Basic Metabolic Panel (02/05/22 10:25) Ua Culture If Indicated (02/05/22 10:25) Abdomen/Kub 1view (02/05/22 10:25) Morphine Injection (Morphine Injection (02/05/22 10:25) Ondansetron Injection (Zofran Injectio (02/05/22 10:30) Ns Iv 1000 Ml (Sodium Chloride 0.9%) (02/05/22 10:30) Urine Culture (02/05/22 10:29) Morphine Injection (Morphine Injection (02/05/22 11:57) Ketorolac Injection (Toradol Injection) (02/05/22 12:30) Hydromorphone Injection (Dilaudid Inject (02/05/22 13:15) Promethazine Injection (Phenergan Injec (02/05/22 13:15) Medications Given in ED Current Medications Medications Dose Ordered Sig/Giselle Route Start Time Stop Time Status Last Admin Dose Admin Ketorolac Tromethamine 15 mg ONCE ONCE IVP 02/05/22 12:30 02/05/22 12:31 DC 02/05/22 12:48 15 MG Ondansetron HCl 4 mg ONCE ONCE IVP 02/05/22 10:30 02/05/22 10:31 DC 02/05/22 11:04 4 MG Vital Signs/I&O 02/05/22 10:04 Temp 36.0 Pulse 85 Resp 18 B/P (MAP) 144/82 (102) Blood Pressure Mean: 102 Progress Progress Note #1: Time: 11:57 Progress Note Patient reassessed, her pain has gone from a 9 to a 7 with 5 mg of morphine. Will discuss with Dr. Jenkins. Labs have been reviewed, hematuria but otherwise normal renal function and no evidence of infection. Progress Note #2: Time: 13:11 Progress Note Discussed with Dr. Donaldson, he would like to try and make her pain-free here in the emergency department and keep her scheduled for her outpatient procedure tomorrow. I am adding a little Phenergan and Dilaudid for pain control. She is down to a "4 or 5". She requests being switched from oxycodone back to hydrocodone. We can accommodate this. She states the oxycodone makes her itchy and not feel well. She is afebrile. Her CBC and chemistry are normal. Her urine from a couple of days ago did not grow any significant bacteria. I did advise her to continue her antibiotics. Diagnostic Imaging Diagonstic Imaging: Xray Comments [facility]. [place], [place] NAME: OLESYA NEVES [facility] REC#: [id number] PT STATUS: REG ER : 1965 PHYSICIAN: ANDREE BUTT MD ADMIT DATE: 02/05/22/ER Draft Date of Exam:02/05/22 ABDOMEN/KUB 1VIEW INDICATION: right flank pain. TECHNIQUE: Two supine views of the abdomen at 10:43 a.m. CORRELATION STUDY: 02/03/2022. FINDINGS: There is gas throughout the gastrointestinal tract with mild stool retention. Prominent gas-filled loops of small bowel are noted. Overall, this does limit assessment for potential calcifications. There is approximately 7 mm calcification projected over the approximately right 12th rib. Additionally, there is a questionable calcification projecting in the region of the right L4 transverse processes of approximately 4 to 5 mm. Phlebolith calcifications in the pelvis. Surgical clip projects over the left upper quadrant. IMPRESSION: 1. Rather prominent gas and stool throughout the gastrointestinal tract does limit assessment. 2. Questionable 7 mm calcification which may correspond to the recently identified right renal pelvis calcification with additional calcification which may very well be positioned in the region of the right ureter. Dictated on workstation # [id number] Dict: 02/05/22 1100 Trans: 02/05/22 1115 [id number] Interpreted by: NICCI,LUCY K DO Electronically signed by: Departure Communication (Admissions) Time/Spoke to Consulting Phy: 12:[address] Jenkins - would prefer to proceed outpatient Impression Primary Impression: Kidney stone on right side Disposition: 01 HOME, SELF-CARE Condition: Improved Departure-Patient Inst. Decision time for Depature: 13:12 Referrals: JIMY BENNETT MD (PCP/Family) Primary Care Physician TYESHA JENKINS MD Patient Instructions: Kidney Stone, Adult ED Add. Discharge Instructions: Drink lots of fluids to stay well-hydrated. Keep your appointment tomorrow with Dr. Jenkins for the stent placement. Hydrocodone instead of oxycodone every 6 hours as needed for pain. As long as you are not taking the Eliquis you can supplement with a little ibuprofen, 3 tablets every 6 hours as needed for pain with food. You should take an wcsk-qtn-abupwef acid network security architect such as Pepcid, Prilosec or Zantac while taking ibuprofen (if you are not already on one). If you develop any new, concerning or worsening symptoms please come back to the emergency room for reevaluation. Scripts Hydrocodone/Acetaminophen (Hydrocodone-Acetamin 7.5-325) 7.5 Mg-325 Mg Tablet 1 EACH PO Q6H PRN for PAIN-MODERATE (5-7), #10 TAB Prov: ANDREE BUTT MD 02/05/22 Copy Copies To 1: TYESHA JENKINS MD, KATHRYN M MD Feb 05, 2022 10:29
[2022-02-05] MEDS ORDERED: NS IV 1000 ML 1,000 ML IV SCH (10:30)
[2022-02-05] MEDS ORDERED: ONDANSETRON 4 MG/2 ML (SDV) Z0FRAN IVP ONE (10:30)
[2022-02-05 10:38] LABS: BILIRUBIN,URINE NEGATIVE (NEGATIVE); CLARITY,URINE CLOUDY; COLOR,URINE YELLOW; GLUCOSE, URINE (UA) NEGATIVE (NEGATIVE); KETONES,URINE NEGATIVE (NEGATIVE); LEUKOCYTE ESTERASE ,URINE 1+ (NEGATIVE); NITRITE,URINE NEGATIVE (NEGATIVE); PROTEIN,URINE 1+ (NEGATIVE)
[2022-02-05 10:38] LABS: POTASSIUM 4.3 MMOL/L (3.6-5.0)
[2022-02-05 10:39] LABS: BASOPHILS % (AUTO) 1 % (0-10); CALCIUM 9.5 MG/DL (8.5-10.1); EOSINOPHILS # (AUTO) 0.1 10^3/uL (0.0-0.3); EOSINOPHILS % (AUTO) 2 % (0-10); HEMATOCRIT 42 % (35-52); HEMOGLOBIN 14.1 g/dL (11.5-16.0); LYMPHOCYTES # (AUTO) 2.4 10^3/uL (1.0-4.0); LYMPHOCYTES % (AUTO) 39 % (12-44); MEAN CORPUSCULAR HEMOGLOBIN 29 pg (25-34); MEAN CORPUSCULAR HGB CONC 34 g/dL (32-36); MEAN CORPUSCULAR VOLUME 86 fL (80-99); MEAN PLATELET VOLUME 10.5 fL (9.0-12.2); MONOCYTES # (AUTO) 0.4 10^3/uL (0.0-1.0); MONOCYTES % (AUTO) 6 % (0-12); NEUTROPHILS # (AUTO) 3.2 10^3/uL (1.8-7.8); NEUTROPHILS % (AUTO) 51 % (42-75); PLATELET COUNT 254 10^3/uL (130-400); WHITE BLOOD COUNT 6.1 10^3/uL (4.3-11.0)
[2022-02-05 10:43] LABS: CREATININE SERUM 0.95 MG/DL (0.60-1.30)
[2022-02-05 10:45] LABS: BACTERIA,URINE FEW /HPF; RBC,URINE >100 /HPF; RENAL EPITHELIAL CELLS,URINE 0-2 /HPF
--- NOTE | 2022-02-05 11:16 | Diagnostic Imaging Report ---
INDICATION: right flank pain. TECHNIQUE: Two supine views of the abdomen at 10:43 a.m. CORRELATION STUDY: 02/03/2022. FINDINGS: There is gas throughout the gastrointestinal tract with mild stool retention. Prominent gas-filled loops of small bowel are noted. Overall, this does limit assessment for potential calcifications. There is approximately 7 mm calcification projected over the approximately right 12th rib. Additionally, there is a questionable calcification projecting in the region of the right L4 transverse processes of approximately 4 to 5 mm. Phlebolith calcifications in the pelvis. Surgical clip projects over the left upper quadrant. IMPRESSION: 1. Rather prominent gas and stool throughout the gastrointestinal tract does limit assessment. 2. Questionable 7 mm calcification which may correspond to the recently identified right renal pelvis calcification with additional calcification which may very well be positioned in the region of the right ureter. Dictated by: Dictated on workstation # [id number]
[2022-02-05] MEDS ORDERED: KETOROLAC 30 MG/ML VIAL IVP ONE (12:30)
[2022-02-05] MEDS ORDERED: HYDR-3817 PO (13:14)
[2022-02-05] MEDS ORDERED: HYDROmorphone 2 MG/ML VIAL (DILAUDID) IV ONE (13:15)
[2022-02-05] MEDS ORDERED: PROMETHAZINE INJ 25 MG/ML (PHENERGAN) AMP IVP ONE (13:15)
[2022-02-05 14:08] VITALS: BP 129/77
== END 2022-02-05 14:09 | disposition home or self-care (01) ==
LOC: EDUNIT# 09:45 → ER 09:47
DX: N20.0 Calculus of kidney (principal); Z87.19 Personal history of other diseases of the digestive system; Z90.49 Acquired absence of other specified parts of digestive tract; Z90.710 Acquired absence of both cervix and uterus; Z86.16 Personal history of COVID-19; Z28.310 Unvaccinated for COVID-19
CPT/HCPCS: 36415; 74018; 80048; 81000; 85025; 87088

== ENCOUNTER 2022-02-06 06:14 | Day surgery (SDC) | payer BC ==
[~2022-02-06] VITALS: Ht 157 cm; Wt 90.5 kg
[2022-02-06] VITALS (9 sets, daily range): BP systolic 102–134; BP diastolic 73–85
[2022-02-06] MEDS ORDERED: cefTRIAXone 1 GM PRE-MIX 50 ML IV ONE (06:45)
[2022-02-06] MEDS ORDERED: LACTATED RINGERS 1,000 ML IV PRN (06:45)
[2022-02-06] MEDS ORDERED: MIDAZOLAM 2 MG/2 ML (VERSED) VIAL ONE ×2 (06:58→06:59)
[2022-02-06] MEDS ORDERED: ONDANSETRON 4 MG/2 ML (SDV) Z0FRAN ONE ×2 (06:58→06:59)
[2022-02-06] MEDS ORDERED: SEVOFLURANE (ULTANE) 15 ML INHAL SOLN ONE (06:59)
[2022-02-06] MEDS ORDERED: LIDOCAINE PF 2% 5 ML (XYLOCAINE) VIAL ONE (06:59)
[2022-02-06] MEDS ORDERED: fentaNYL INJ 100 MCG/2 ML AMP ONE (06:59)
[2022-02-06] MEDS ORDERED: FAMOTIDINE 20MG/2ML IV (PEPCID) ONE (06:59)
[2022-02-06] MEDS ORDERED: proPOfol 200 MG/20 ML (DIPRIVAN) VIAL IV ONE (06:59)
[2022-02-06] MEDS ORDERED: MIDAZOLAM 2 MG/2 ML (VERSED) VIAL IV ONE (07:15)
[2022-02-06] MEDS ORDERED: ONDANSETRON 4 MG/2 ML (SDV) Z0FRAN IV ONE (07:15)
[2022-02-06] MEDS ORDERED: FAMOTIDINE 20MG/2ML IV (PEPCID) IV ONE (07:15)
--- NOTE | 2022-02-06 07:56 | Progress Note-Pre Operative ---
Pre-Operative Progress Note H&P Reviewed The H&P was reviewed, patient examined and no changes noted. Date Seen by Provider: Feb 06, 2022 Time Seen by Provider: 07:55 Date H&P Reviewed: Feb 06, 2022 Time H&P Reviewed: 07:55 Pre-Operative Diagnosis: RT PROXIMAL URETERAL STONE TYESHA POPE MD Feb 06, 2022 07:56
--- NOTE | 2022-02-06 07:57 | Progress Note-Post Operative ---
Post-Operative Progess Note Surgeon (s)/Sack Cleaning Hand (s) Surgeon TYESHA POPE MD Sack Cleaning Hand: NONE Pre-Operative Diagnosis RT PROXIMAL URETERAL STONE Post-Operative Diagnosis SAME Procedure & Operative Findings Date of Procedure 02/06/22 Procedure Performed/Findings CYSTOSCOPY, RT URETERAL STONE MANIPULATION AND STENT Anesthesia Type GENERAL Estimated Blood Loss Estimated blood loss (mL): NONE Specimens/Packing Specimens Removed NONE Packing: NONE TYESHA POPE MD Feb 06, 2022 07:57
--- NOTE | 2022-02-06 07:58 | Discharge Inst-Urology ---
Discharge Inst-Urology Reconcile Patient Problems Problems Reviewed?: Yes Final Diagnosis RT PROXIMAL URETERAL STONE Patient Instructions/Follow Up Plan/Assessment/Instructions Patient may resume Xarelto tomorrow if no bleeding, hold if bleeding starts Hold Xarelto Wednesday 02/14 Come to [facility] Sunday 02/18 at 6am for ESWL, take 1oz of Mylanta or Maalox at 6pm Saturday 02/17 and NPO post midnight Saturday 02/17 Increase oral fluids for 48 hours and then as needed. Diet and Activity as tolerated. If questions or concerns contact your physician Or seek help at emergency department. TYESHA POPE MD Feb 06, 2022 07:58
[2022-02-06] MEDS ORDERED: ROCURONIUM 50 MG/5 ML (ZEMURON) VIAL IV ONE (08:10)
[2022-02-06] MEDS ORDERED: SUGAMMADEX 500 MG/5 ML VIAL (BRIDION) IV ONE (08:15)
--- NOTE | 2022-02-06 08:23 | Diagnostic Imaging Report ---
INDICATION: Right ureteral calculus. COMPARISON: 02/05/2022 FINDINGS: Single frontal radiographic view of the abdomen was obtained and demonstrates subtle 4 mm calculus projecting over the L4-L5 intervertebral disc space on the right. This may correspond to previously described calculus. This appears slightly more inferior and may be on the basis of interval migration within the distal right ureter. Additional 6 mm calculus is also seen projecting inferior to the right fourth rib and could be on the basis of calculus within the right renal pelvis. Small bowel loops are nondistended. There is no large collection of free intraperitoneal air. No unexpected radiopaque foreign bodies are identified. IMPRESSION: 1. Right-sided extraosseous calcifications as described above. 2. Nonobstructive small bowel gas pattern. Dictated by: Dictated on workstation # [id number]
[2022-02-06] MEDS ORDERED: ONDANSETRON 4 MG/2 ML (SDV) Z0FRAN IVP PRN (08:30)
[2022-02-06] MEDS ORDERED: HYDROmorphone 2 MG/ML VIAL (DILAUDID) IV ONE (08:30)
[2022-02-06] MEDS ORDERED: KETOROLAC 30 MG/ML VIAL IVP ONE (09:30)
--- NOTE | 2022-02-06 11:54 | OPERATIVE REPORT ---
DATE OF SERVICE: 02/06/2022 PREOPERATIVE DIAGNOSIS: Right proximal ureteral stone. POSTOPERATIVE DIAGNOSIS: Right proximal ureteral stone. OPERATIONS PERFORMED: Cystoscopy, right ureteral stone manipulation, and insertion of right double-J stent. SURGEON: Cooper Pope MD ANESTHESIA: General. COMPLICATIONS: None. DESCRIPTION OF PROCEDURE: Under satisfactory general anesthesia, the patient in lithotomy position, the genitalia were prepped and draped in the usual sterile fashion. Cystoscope was introduced in the bladder, which was examined and normal except for a sluggish efflux on the right side. Using the foroblique lens, I passed a 6-[place] 26 cm double-J stent all the way to the level of the stone, bypassed it easily. I removed the guidewire and the stent was seen draining nicely proximally fluoroscopically and distally endoscopically. The bladder was evacuated and the cystoscope was removed. The patient tolerated the procedure and anesthesia well and was sent to recovery room in a stable condition. Job ID: [id number] DocumentID: [id number] Dictated Date: 02/06/2022 08:28:53 Tunnel Elastic Operator Chainstitch Date: 02/06/2022 11:53:15 Dictated By: COOPER POPE MD
[2022-02-07] MEDS ORDERED: HYDR-3820 PO (06:26)
[2022-02-07] MEDS ORDERED: PROM25SU44 RC (06:26)
== END 2022-02-06 10:20 | disposition home or self-care (01) ==
LOC: SDC 06:14
PROVIDERS: ATTEND Urology
DX: N20.1 Calculus of ureter (principal); E66.9 Obesity, unspecified; Z68.36 Body mass index [BMI] 36.0-36.9, adult; Z79.01 Long term (current) use of anticoagulants; Z91.040 Latex allergy status; Z28.310 Unvaccinated for COVID-19
CPT/HCPCS: 52332; 74018; 76000; 87081; 93005; C2625

== ENCOUNTER 2022-02-07 04:58 | Emergency (ER) | payer BC ==
[~2022-02-07] VITALS: Ht 168 cm; Wt 90.5 kg
[2022-02-07] MEDS ORDERED: PHENAZOPYRIDINE 100 MG (PYRIDIUM) TABLET PO STA (05:17)
[2022-02-07] MEDS ORDERED: KETOROLAC 30 MG/ML VIAL IVP STA (05:17)
[2022-02-07] MEDS ORDERED: morphine INJ 10 MG/ML 1ML (SYR OR VIAL) IVP STA ×2 (05:17→06:27)
[2022-02-07 05:25] LABS: BILIRUBIN,URINE NEGATIVE (NEGATIVE); CLARITY,URINE SL CLOUDY; COLOR,URINE YELLOW; GLUCOSE, URINE (UA) NEGATIVE (NEGATIVE); KETONES,URINE 2+ (NEGATIVE); LEUKOCYTE ESTERASE ,URINE TRACE (NEGATIVE); NITRITE,URINE NEGATIVE (NEGATIVE); PH,URINE 5.5 (5-9); PROTEIN,URINE 3+ (NEGATIVE)
--- NOTE | 2022-02-07 05:27 | ED GU-Female ---
General Chief Complaint: - 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 Stated Complaint: POST OP GALLBLADDER SURGERY VOMITING Source: patient, old records History of Present Illness Date Seen by Provider: Feb 07, 2022 Time Seen by Provider: 05:10 Initial Comments PT ARRIVES VIA POV FROM HOME PT HAD STENT PLACED IN RIGHT URETER YESTERDAY BY DR. POPE FOR KIDNEY STONE, AND IS TO HAVE LITHOTRIPSY 02/18/22 PT STATES SHE IS HAVING SEVERE PAIN OVER BLADDER, RIGHT GROIN UP TO RIGHT FLANK--RATES PAIN 8-9/10--STATES SHE CAN'T STAND THE PAIN ANYMORE HAS BEEN TAKING HYDROCODONE 7.5/325 EVERY 4 HOURS WITHOUT RELIEF--LAST DOSE WAS AROUND 0200 HAVING NAUSEA AND DRY HEAVING DUE TO PAIN, TOOK ZOFRAN AT THE SAME TIME WITHOUT RELIEF NO FEVER, BUT HAS BEEN HAVING CHILLS. NO BURNING ON URINATION, BUT HAS PAIN OVER BLADDER WHEN SHE URINATES. PT HAS ATRIAL FIBRILLATION AND IS SUPPOSED TO RE-START HER BLOOD THINNER TONIGHT NO GROSS HEMATURIA AT THIS TIME PT WAS ABLE TO KEEP HER TAMSULOSIN DOWN LAST EVENING, AND KEPT HER CIPRO DOWN. PT HAS HAD MULTIPLE VISITS THIS MONTH FOR THIS PROBLEM, AND HAS BEEN PRESCRIBED MULTIPLE MEDICATIONS BY MULTIPLE PROVIDERS. PT STATES SHE DOES NOT LIKE OXYCODONE--MAKES HER ITCHY AND FEEL SICK. Allergies and Home Medications Allergies Coded Allergies: Latex, Natural Rubber (Verified Allergy, Intermediate, Shortness of Ana ath, PARALIZED DIAHPHRAM, 02/06/22) Patient Home Medication List Home Medication List Reviewed: Yes Albuterol Sulfate (Albuterol Sulfate) 1.25 Mg/3 Ml Vial.neb, 3 ML NEB Q8H PRN for SHORTNESS OF BREATH Prescribed by: ELISE DUDLEY on 10/16/21 0904 Ciprofloxacin HCl (Ciprofloxacin HCl) 500 Mg Tablet, 500 MG PO BID, (Reported) Entered as Reported by: MYRTLE VANN on 02/04/22 1240 Clonidine HCl (Clonidine HCl) 0.1 Mg Tablet, 0.1 MG PO BID PRN for BLOOD PRESSURE, (Reported) Entered as Reported by: LEOBARDO CARLIN on 08/26/21 1043 Diazepam (Diazepam) 5 Mg Tablet, 5 MG PO BID PRN for ANXIETY, (Reported) Entered as Reported by: LEOBARDO CARLIN on 08/26/21 1043 Diltiazem HCl (Diltiazem 24Hr ER) 120 Mg Cap.er.24h, 120 MG PO BID Prescribed by: JONO SNYDER on 01/17/22 1253 Fish Oil/Dha/Epa (Fish Oil 1,200 mg Fish Oil) 1 Each Capsule, 1 EACH PO DAILY, (Reported) Entered as Reported by: LEOBARDO CARLIN on 08/26/21 1043 Furosemide (Furosemide) 20 Mg Tablet, 40 MG PO DAILY, (Reported) Entered as Reported by: LEOBARDO CARLIN on 08/26/21 1043 Hydrocodone/Acetaminophen (Hydrocodone-Acetamin 10-325 mg) 10 Mg-325 Mg Tablet, 1 EA PO TID, (Reported) Entered as Reported by: MYRTLE VANN on 02/04/22 1240 Hydrocodone/Acetaminophen (Hydrocodone-Acetamin 7.5-325) 7.5 Mg-325 Mg Tablet, 1 EACH PO Q6H PRN for PAIN-MODERATE (5-7) Prescribed by: ANDREE BUTT on 02/05/22 1314 Hydrocodone/Acetaminophen (Hydrocodone-Acetamin 10-325 mg) 10 Mg-325 Mg Tablet, 1 EACH PO Q4H Prescribed by: JANETTE CARLOS on 02/07/22 0627 Levocetirizine Dihydrochloride (Levocetirizine Dihydrochloride) 5 Mg Tablet, 5 MG PO HS, (Reported) Entered as Reported by: LEOBARDO CARLIN on 10/14/21 1102 Pantoprazole Sodium (Pantoprazole Sodium) 40 Mg Tablet.dr, 1 EA PO DAILY, (Re ported) Entered as Reported by: MYRTLE VANN on 02/04/22 1240 Promethazine HCl (Promethazine Suppository) 25 Mg Supp.rect, 25 MG RC Q6 Prescribed by: JANETTE CARLOS on 02/07/22 0626 Sennosides/Docusate Sodium (Stool Softener Tablet) Unknown Strength Tablet, Unknown Dose PO, (Reported) Entered as Reported by: MYRTLE VANN on 02/04/22 1240 Spironolactone (Spironolactone) 25 Mg Tablet, 1 EA PO DAILY, (Reported) Entered as Reported by: MYRTLE VANN on 02/04/22 124 Sumatriptan Succinate (Imitrex) 50 Mg Tab, 50 MG PO DAILY PRN for HEADACHE Prescribed by: ELISE DUDLEY on 10/16/21 0904 Tamsulosin HCl (Flomax) 0.4 Mg Cap, 0.4 MG PO DAILY Prescribed by: HUBERT GENTILE on 02/02/22 1125 Tiotropium [place] (Spiriva Respimat 1.25MCG/ACTUATION) 1.25 Mcg/Actuation Mist.inhal, 1 PUFF IH UD, (Reported) Entered as Reported by: MYRTLE VANN on 02/04/22 1240 Vitamin E Mixed (Vitamin E) 100 Unit Tablet, 100 UNIT PO DAILY, (Reported) Entered as Reported by: LEOBARDO CARLIN on 08/26/21 1043 [Vit C/D3/Zinc] , 1 EA PO DAILY, (Reported) Entered as Reported by: LEOBARDO CARLIN on 10/14/21 1102 Discontinued Medications Amiodarone HCl (Amiodarone HCl) 200 Mg Tablet, 200 MG PO BID Discontinued Reason: No Longer Taking Prescribed by: ELISE DUDLEY on 10/16/21 1236 Amoxicillin/Potassium Clav (Augmentin 500-125 Tablet) 500 Mg-125 Mg Tablet, 1 EA CH PO TID Discontinued Reason: No Longer Taking Prescribed by: SOLIS COLLIER on 11/13/21 1321 Azithromycin (Azithromycin) 250 Mg Tablet, 250 MG PO UD Discontinued Reason: No Longer Taking Prescribed by: SOLIS COLLIER on 11/13/21 1321 Dexlansoprazole (Dexlansoprazole Dr) 60 Mg Cap.bp, 60 MG PO 1700, (Reported) Discontinued Reason: No Longer Taking Entered as Reported by: LEOBARDO CARLIN on 10/14/21 1102 Doxycycline Hyclate (Doxycycline Hyclate) 100 Mg Tablet, 100 MG PO BID Discontinued Reason: No Longer Taking Prescribed by: HUBERT GENTILE on 01/15/22 1650 Fluticasone Furoate (Arnuity Ellipta) 100 Mcg Blst.w.dev, 100 MCG IH DAILY, (Reported) Discontinued Reason: No Longer Taking Entered as Reported by: LEOBARDO CARLIN on 10/14/21 1102 Hydrocodone/Acetaminophen (Hydrocodone-Acetamin 5-325 mg) 5 Mg-325 Mg Tablet, 1 TAB PO Q4H PRN for PAIN-MODERATE (5-7) Discontinued Reason: Referral/FU Appt-Addtl Prescribed by: SOLIS COLLIER on 11/13/21 1322 Hydrocodone/Acetaminophen (Hydrocodone-Acetamin 7.5-325) 7.5 Mg-325 Mg Tablet, 1 EACH PO Q6H PRN for PAIN-BREAKTHROUGH Discontinued Reason: No Longer Taking Prescribed by: HUBERT GENTILE on 01/15/22 1750 Hydrocodone/Acetaminophen (Hydrocodone-Acetamin 5-325 mg) 5 Mg-325 Mg Tablet, 1- 2 TAB PO Q4H PRN for PAIN-MODERATE (5-7) Discontinued Reason: No Longer Taking Prescribed by: HUBERT GENTILE on 02/02/22 1126 Levothyroxine Sodium (Levothyroxine Sodium) 112 Mcg Tablet, 112 MCG PO DAILY, (Reported) Discontinued Reason: No Longer Taking Entered as Reported by: LEOBARDO CARLIN on 08/26/21 1043 Metoclopramide HCl (Metoclopramide HCl) 10 Mg Tablet, 10 MG PO QIDACHS, (Reported) Discontinued Reason: No Longer Taking Entered as Reported by: LEOBARDO CARLIN on 08/26/21 1043 Ondansetron (Ondansetron Odt) 4 Mg Tab.rapdis, 4 MG PO Q6H PRN for NAUSEA/VOMITING-1ST LINE, (Reported) Discontinued Reason: No Longer Taking Entered as Reported by: LEOBARDO CARLIN on 10/14/21 1102 Ondansetron (Ondansetron Odt) 4 Mg Tab.rapdis, 4-8 MG PO Q6H PRN for NAUSEA/VOMITING Discontinued Reason: No Longer Taking Prescribed by: HUBERT GENTILE on 02/02/22 1125 Rivaroxaban (Xarelto) 20 Mg Tablet, 20 MG PO 1700, (Reported) Entered as Reported by: LEOBARDO CARLIN on 10/14/21 1102 Sucralfate (Carafate) 1 Gram/10 Ml Oral.susp, 1 GM PO TID Discontinued Reason: No Longer Taking Prescribed by: Fady Elizabeth on 01/18/22 1505 Review of Systems Review of Systems Constitutional: see HPI, chills Respiratory: no symptoms reported Gastrointestinal: see HPI, abdominal pain, nausea Genitourinary: see HPI Musculoskeletal: see HPI, gout Skin: no symptoms reported Psychiatric/Neurological: No Symptoms Reported Endocrine: No Symptoms Reported Hematologic/Lymphatic: See HPI Past Dmpaoqv-Topduk-Dpvarz Hx Patient Social History Tobacco Use?: Yes Tobacco type used: Cigarettes Smoking Status: Current Everyday Smoker Substance use?: No Alcohol Use?: No Pt feels they are or have been: No Immunizations Up To Date Tetanus Booster (TDap): Less than 5yrs PED Vaccines UTD: Yes First/Initial COVID19 Vaccinat: NONE Second COVID19 Vaccination Arley: NONE\\ Third COVID19 Vaccination Date: NONE Seasonal Allergies Seasonal Allergies: Yes Past Medical History Surgery/Hospitalization HX: pacemaker, CHF, A-fib, Cardiac cath, 3 cardiac ablasions, hysterectomy, appendectomy, tonsillectomy, titi, hiatal hernia, ureteral stent, d&c, BLADDER SLING afib, chf, copd, renal stones, htn, high cholesterol, liver disease, barretts esophagus, hypothryoidism Surgeries: Yes (D&C'S, LAPAROSCOPY, UVULA REMOVED, hiatal H. x 2 repair, cardiac ablations) Appendectomy, Bladder Surgery, Cardiac, Gallbladder, Hysterectomy, Pacemaker, Renal, Tonsillectomy Respiratory: Yes (Right diaphragmatic paralysis, COVID [employer] 2019, 08/03, NC2L @ HS/PRN) Pneumonia, COPD Currently Using CPAP: No Currently Using BIPAP: No Cardiac: Yes (ABLATION, CHF, RIGHT SHOULDER BLOOD CLOT, AFLUTTER) Atrial Fibrillation, High Cholesterol, Hypertension, Palpitations, Valvular Heart Disease Neurological: Yes (Right diaphragmatic paralysis) Headaches /Migraines Female 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 Disorders: Endometriosis [employer] History: Hysterectomy, 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, Menopausal Genitourinary: Yes (BLADDER SLING) Kidney Stones Gastrointestinal: Yes (FATTY LIVER, SLOW MOVING STOMACH) Gastroesophageal Reflux, Liver Disease/Jaundice, Reina's Esophagus, Hemorrhoid s, Polyps, Hiatal Hernia, Gall Bladder Disease Musculoskeletal: Yes Chronic Back Pain Endocrine: Yes Hypothyroidsim HEENT: No Loss of Vision: Denies Hearing Impairment: Denies Cancer: No Psychosocial: Yes Depression Integumentary: Yes Eczema, Psoriasis Blood Disorders: No Family Medical History Colon cancer Noncontributory Physical Exam Vital Signs Vital Signs - First Documented 02/07/22 05:06 Temp 36.9 Pulse 99 Resp 18 B/P (MAP) 152/91 (111) Pulse Ox 95 O2 Delivery Room Air Capillary Refill : Height, Weight, BMI Height: '" Weight: lbs. oz. kg; 36.71 BMI Method: General Appearance: other (LOOKS UNCOMFORTABLE AND IS DRY HEAVING ) Respiratory: normal breath sounds, no respiratory distress, no accessory muscle use Gastrointestinal: soft, tenderness (SUPRAPUBIC, RLQ AND R FLANK TENDERNESS) Back: CVA tenderness (R) Extremities: normal inspection Neurologic/Psychiatric: no motor/sensory deficits, alert, oriented x 3 Skin: normal color, warm/dry; No rash; tattoos/piercings (MULTIPLE TATTOOS) Progress/Results/Core Measures Suspected Sepsis SIRS Temperature: Pulse: Respiratory Rate: Blood Pressure / Mean: Results/Orders Lab Results Laboratory Tests Test 02/07/22 05:09 Range/Units Urine Color YELLOW Urine Clarity SL CLOUDY Urine pH 5.5 5-9 Urine Specific Stewart >=1.030 1.016-1.022 Urine Protein 3+ H NEGATIVE Urine Glucose (UA) NEGATIVE NEGATIVE Urine Ketones 2+ H NEGATIVE Urine Nitrite NEGATIVE NEGATIVE Urine Bilirubin NEGATIVE NEGATIVE Urine Urobilinogen 0.2 < = 1.0 MG/DL Urine Leukocyte Esterase TRACE H NEGATIVE Urine RBC (Auto) 3+ H NEGATIVE Urine RBC >100 H /HPF Urine WBC 2-5 /HPF Urine Squamous Epithelial Cells 2-5 /HPF Urine Crystals NONE /LPF Urine Bacteria FEW H /HPF Urine Casts NONE /LPF Urine Mucus NEGATIVE /LPF Urine Culture Indicated YES Micro Results Microbiology 02/07/22 Urine Culture - Final, Complete Gram Pos Mixed Bacterial Marina My Orders Orders - JANETTE CARLOS DO Ua Culture If Indicated (02/07/22 05:12) Ed Iv/Invasive Line Start (02/07/22 05:17) Ed Iv/Invasive Line Start (02/07/22 05:17) Lactated Ringers (Lr 1000 Ml Iv Solution (02/07/22 05:30) Ketorolac Injection (Toradol Injection) (02/07/22 05:17) Phenazopyridine Tablet (Pyridium Tablet) (02/07/22 05:17) Ondansetron Injection (Zofran Injectio (02/07/22 05:30) Morphine Injection (Morphine Injection (02/07/22 05:17) Abdomen/Kub 1view (02/07/22 05:17) Urine Culture (02/07/22 05:09) Morphine Injection (Morphine Injection (02/07/22 06:27) Metoclopramide Injection (Reglan Injecti (02/07/22 06:30) Medications Given in ED Vital Signs/I&O Capillary Refill : Progress Note : Progress Note GIVEN IV FLUIDS, ZOFRAN, TORADOL AND MORPHINE, WELL PYRIDIUM PT IS NO LONGER DRY HEAVING AND APPEARS MORE COMFORTABLE AT DISMISSAL Diagnostic Imaging Comments KUB--NO ACUTE PROCESS, DOUBLE J STENT ON RIGHT APPEARS TO BE IN ADEQUATE POSITION. PENDING RADIOLOGIST REVIEW Reviewed: Reviewed by Me Departure Communication (Admissions) 0615--SPOKE WITH DR. POPE, HE ADVISES THAT HE IS GETTING READY TO LEAVE TOWN THIS MORNING. WILL TRY DIFFERENT NAUSEA MEDICATION AND DIFFERENT DOSE OF PAIN MEDICATION. Impression Primary Impression: Ureteral calculus, right Additional Impression: S/P RIGHT URETERAL STENT Disposition: HOME, SELF-CARE Condition: Stable Departure-Patient Inst. Decision time for Depature: 06:24 Referrals: JIMY BENNETT MD (PCP/Family) Primary Care Physician TYESHA POPE MD Patient Instructions: Renal Colic, Kidney Stone, Adult ED Add. Discharge Instructions: FOLLOW UP WITH DR. POPE SCHEDULED. All discharge instructions reviewed with patient and/or family. Voiced understanding. Scripts Promethazine HCl (Promethazine Suppository) 25 Mg Supp.rect 25 MG RC Q6 for Nausea/Vomiting, #10 SUPP.RECT Prov: JANETTE CARLOS DO 02/07/22 Hydrocodone/Acetaminophen (Hydrocodone-Acetamin 10-325 mg) 10 Mg-325 Mg Tablet 1 EACH PO Q4H, #20 TAB Prov: JANETTE CARLOS DO 02/07/22 JANETTE CARLOS DO Feb 07, 2022 05:27
[2022-02-07] MEDS ORDERED: LACTATED RINGERS 1,000 ML IV ONE (05:30)
[2022-02-07] MEDS ORDERED: ONDANSETRON 4 MG/2 ML (SDV) Z0FRAN IVP ONE (05:30)
[2022-02-07 05:33] LABS: BACTERIA,URINE FEW /HPF; RBC,URINE >100 /HPF
[2022-02-07] MEDS ORDERED: PROM25SU44 RC (06:26)
[2022-02-07] MEDS ORDERED: HYDR-3820 PO (06:26)
[2022-02-07] MEDS ORDERED: METOCLOPRAMIDE INJ 10 MG/2 ML (REGLAN) IVP ONE (06:30)
[2022-02-07 06:40] VITALS: BP 141/78
--- NOTE | 2022-02-07 06:53 | Diagnostic Imaging Report ---
INDICATION: Recent right ureteral stent placement one day earlier with continued pain and nausea. TECHNIQUE: 2 view of the abdomen 5:53 AM CORRELATION STUDY: 02/06/2022 FINDINGS: Since prior study, a right ureteral stent has been placed. The proximal loop projects over the expected location of the renal pelvis of the distal loop in expected location the renal pelvis. Small fragmented calcifications adjacent to the proximal loop measures 7 mm. Additional 3 mm calcification in the right hemipelvis projects over the distal catheter may be superimposed phlebolith versus distal ureteral stone. Moderate stool within the gastric intestinal tract. No findings to suggest high degree bowel obstruction or gross evidence for free intraperitoneal air. Elevated right diaphragm is again demonstrated with atelectasis at the right lung base. IMPRESSION: 1. Right ureteral stent has been placed. Calcification projects over the right inferior renal silhouette and over the pelvis . Dictated by: Dictated on workstation # [id number]
== END 2022-02-07 06:42 | disposition home or self-care (01) ==
LOC: EDUNIT# 04:58 → ER 05:00
DX: N20.1 Calculus of ureter (principal); Z96.0 Presence of urogenital implants; Z28.310 Unvaccinated for COVID-19; Z91.040 Latex allergy status
CPT/HCPCS: 74018; 81000; 87088

== ENCOUNTER 2022-02-11 05:37 | Outpatient (CLI) | payer BC ==
[~2022-02-11] VITALS: Ht 157.5 cm; Wt 87.9 kg
[~2022-02-11 05:37] MED LIST changes: +PROM25SU44 RC
[2022-02-11] MEDS ORDERED: RIVA10TA PO (13:41)
[2022-02-15] MEDS ORDERED: CEPH500T PO (14:05)
[2022-02-15] MEDS ORDERED: ACHD5005 PO (14:05)
[2022-02-18] MEDS ORDERED: KETO10TA PO (11:33)
[2022-02-18] MEDS ORDERED: NITR-65 PO (11:33)
[2022-02-18] MEDS ORDERED: TMSL.4C PO (11:33)
[2022-02-18] MEDS ORDERED: ACHD5005 PO (11:33)
[2022-02-18] MEDS ORDERED: PHEN-640 PO (11:33)
== END 2022-02-17 09:09 ==
LOC: PREOP 05:37
PROVIDERS: ATTEND Urology
DX: Z01.818 Encounter for other preprocedural examination (principal); N20.1 Calculus of ureter

== ENCOUNTER 2022-02-15 11:12 | Emergency (ER) | payer BC ==
[~2022-02-15] VITALS: Ht 160 cm; Wt 87.9 kg
[~2022-02-15 11:12] MED LIST changes: +RIVA10TA PO
[2022-02-15] MEDS ORDERED: NS IV 1000 ML 1,000 ML IV STA (11:35)
[2022-02-15 11:43] LABS: BASOPHILS % (AUTO) 1 % (0-10); EOSINOPHILS # (AUTO) 0.2 10^3/uL (0.0-0.3); EOSINOPHILS % (AUTO) 3 % (0-10); HEMATOCRIT 39 % (35-52); HEMOGLOBIN 13.4 g/dL (11.5-16.0); LYMPHOCYTES # (AUTO) 1.8 10^3/uL (1.0-4.0); LYMPHOCYTES % (AUTO) 26 % (12-44); MEAN CORPUSCULAR HEMOGLOBIN 29 pg (25-34); MEAN CORPUSCULAR HGB CONC 34 g/dL (32-36); MEAN CORPUSCULAR VOLUME 86 fL (80-99); MONOCYTES # (AUTO) 0.6 10^3/uL (0.0-1.0); MONOCYTES % (AUTO) 9 % (0-12); NEUTROPHILS # (AUTO) 4.3 10^3/uL (1.8-7.8); NEUTROPHILS % (AUTO) 63 % (42-75); PLATELET COUNT 259 10^3/uL (130-400); WHITE BLOOD COUNT 6.9 10^3/uL (4.3-11.0)
[2022-02-15] MEDS ORDERED: ONDANSETRON 4 MG/2 ML (SDV) Z0FRAN IVP ONE (11:45)
[2022-02-15] MEDS ORDERED: KETOROLAC 30 MG/ML VIAL IVP ONE ×2 (11:45→14:15)
[2022-02-15] MEDS ORDERED: morphine INJ 10 MG/ML 1ML (SYR OR VIAL) IVP ONE ×2 (11:45→13:00)
--- NOTE | 2022-02-15 11:52 | ED GU-Female ---
General Chief Complaint: - 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 Stated Complaint: BACK PAIN, NAUSEA Nursing Triage Note: PT PRESENTS TO ED VIA POV FROM HOME WITH COMPLAINTS OF R SIDE AND LOWER PELVIC PAIN WORSE SINCE HAVING STENT PLACED LAST THURSDAY. PT STATES SHE IS SCHEDULED FOR LITHROTRIPSY ON THURSDAY. Source: patient Exam Limitations: no limitations History of Present Illness Date Seen by Provider: Feb 15, 2022 Time Seen by Provider: 11:48 Initial Comments Patient is a 56-year-old female with a history of kidney stones who presents ED with continuous right flank pain and right sided abdominal pain. Patient states she had a ureteral stent placed by Dr. Pope a week ago. Patient is scheduled for lithotripsy next Thursday. She states she has been having intermittent pain since then but did have hydrocodone she was taking at home with some improvement. Patient has been seen here a few times for continuous pain. Pain became worse around 8:00 this morning. Rates pain 8 out of 10. Sharp stabbing pain that radiates to the right side of her abdomen. She reports nausea with dry heaving without vomiting. No diarrhea. She reports some mild pelvic discomfort with urination over the past 2 days. Started having chills and body aches today. She had a KUB on 07 February that showed a small fragmented calcification adjacent to the proximal loop that measures 7 mm. She may have additional 3 mm calcification at the right distal ureter. Patient denies of any known fevers, chest pain, cough or shortness of breath. Allergies and Home Medications Allergies Coded Allergies: Latex, Natural Rubber (Verified Allergy, Intermediate, Shortness of Breath, PARALIZED DIAHPHRAM, 02/06/22) Patient Home Medication List Home Medication List Reviewed: Yes Albuterol Sulfate (Albuterol Sulfate) 1.25 Mg/3 Ml Vial.neb, 3 ML NEB Q8H PRN for SHORTNESS OF BREATH Prescribed by: ELISE DUDLEY on 10/16/21 0904 Cephalexin (Cephalexin) 500 Mg Tablet, 500 MG PO QID Prescribed by: SOLIS COLLIER on 02/15/22 1405 Clonidine HCl (Clonidine HCl) 0.1 Mg Tablet, 0.1 MG PO BID PRN for BLOOD PRESSURE, (Reported) Entered as Reported by: LEOBARDO CARLIN on 08/26/21 1043 Diazepam (Diazepam) 5 Mg Tablet, 5 MG PO BID PRN for ANXIETY, (Reported) Entered as Reported by: LEOBARDO CARLIN on 08/26/21 1043 Diltiazem HCl (Diltiazem 24Hr ER) 120 Mg Cap.er.24h, 120 MG PO BID Prescribed by: JONO SNYDER on 01/17/22 1253 Hydrocodone/Acetaminophen (Hydrocodone-Acetamin 10-325 mg) 10 Mg-325 Mg Tablet, 1 EACH PO Q4H Prescribed by: JANETTE CARLOS on 02/07/22 0627 Hydrocodone/Acetaminophen (Hydrocodone-Acetamin 5-325 mg) 5 Mg-325 Mg Tablet, 1 TAB PO Q4H PRN for PAIN-MODERATE (5-7) Prescribed by: SOLIS COLLIER on 02/15/22 1406 Pantoprazole Sodium (Pantoprazole Sodium) 40 Mg Tablet.dr, 1 EA PO DAILY, (Re ported) Entered as Reported by: MYRTLE VANN on 02/04/22 1240 Rivaroxaban (Xarelto) 10 Mg Tablet, 10 MG PO DAILY, (Reported) Entered as Reported by: BRUNILDA CEDILLO on 02/11/22 1341 Sennosides/Docusate Sodium (Stool Softener Tablet) Unknown Strength Tablet, Unknown Dose PO, (Reported) Entered as Reported by: MYRTLE VANN on 02/04/22 1240 Discontinued Medications Ciprofloxacin HCl (Ciprofloxacin HCl) 500 Mg Tablet, 500 MG PO BID, (Reported) Discontinued Reason: No Longer Taking Entered as Reported by: MYRTLE VANN on 02/04/22 1240 Fish Oil/Dha/Epa (Fish Oil 1,200 mg Fish Oil) 1 Each Capsule, 1 EACH PO DAILY, (Reported) Discontinued Reason: No Longer Taking Entered as Reported by: LEOBARDO CARLIN on 08/26/21 1043 Furosemide (Furosemide) 20 Mg Tablet, 40 MG PO DAILY, (Reported) Discontinued Reason: No Longer Taking Entered as Reported by: LEOBARDO CARLIN on 08/26/21 1043 Hydrocodone/Acetaminophen (Hydrocodone-Acetamin 10-325 mg) 10 Mg-325 Mg Tablet, 1 EA PO TID, (Reported) Discontinued Reason: No Longer Taking Entered as Reported by: MYRTLE VANN on 02/04/22 1240 Hydrocodone/Acetaminophen (Hydrocodone-Acetamin 7.5-325) 7.5 Mg-325 Mg Tablet, 1 EACH PO Q6H PRN for PAIN-MODERATE (5-7) Discontinued Reason: No Longer Taking Prescribed by: ANDREE BUTT on 02/05/22 1314 Levocetirizine Dihydrochloride (Levocetirizine Dihydrochloride) 5 Mg Tablet, 5 MG PO HS, (Reported) Discontinued Reason: No Longer Taking Entered as Reported by: LEOBARDO CARLIN on 10/14/21 1102 Promethazine HCl (Promethazine Suppository) 25 Mg Supp.rect, 25 MG RC Q6 Discontinued Reason: No Longer Taking Prescribed by: JANETTE CARLOS on 02/07/22 0626 Spironolactone (Spironolactone) 25 Mg Tablet, 1 EA PO DAILY, (Reported) Discontinued Reason: No Longer Taking Entered as Reported by: MYRTLE VANN on 02/04/22 1240 Sumatriptan Succinate (Imitrex) 50 Mg Tab, 50 MG PO DAILY PRN for HEADACHE Discontinued Reason: No Longer Taking Prescribed by: ELISE DUDLEY on 10/16/21 0904 Tamsulosin HCl (Flomax) 0.4 Mg Cap, 0.4 MG PO DAILY Discontinued Reason: No Longer Taking Prescribed by: HUBERT GENTILE on 02/02/22 1125 Tiotropium Ty Ty (Spiriva Respimat 1.25MCG/ACTUATION) 1.25 Mcg/Actuation Mist.inhal, 1 PUFF IH UD, (Reported) Discontinued Reason: No Longer Taking Entered as Reported by: MYRTLE VANN on 02/04/22 1240 Vitamin E Mixed (Vitamin E) 100 Unit Tablet, 100 UNIT PO DAILY, (Reported) Discontinued Reason: No Longer Taking Entered as Reported by: LEOBARDO CARLIN on 08/26/21 1043 [Vit C/D3/Zinc] , 1 EA PO DAILY, (Reported) Discontinued Reason: No Longer Taking Entered as Reported by: LEOBARDO CARLIN on 10/14/21 1102 Review of Systems Review of Systems Constitutional: No chills, No diaphoresis, No malaise, No weakness EENTM: No blurred vision, No double vision Respiratory: No cough, No dyspnea on exertion, No short of breath Cardiovascular: No chest pain Gastrointestinal: No abdominal pain, No diarrhea, No nausea, No vomiting Genitourinary: denies burning, denies discharge, denies frequency; flank pain Musculoskeletal: back pain; No joint pain Skin: No change in color, No change in hair/nails All Other Systemes Reviewed Negative Unless Noted: Yes Past Vjjzeqp-Rxhmsr-Nplxsx Hx Patient Social History Tobacco Use?: No Substance use?: No Alcohol Use?: Yes Alcohol Frequency: Rarely Pt feels they are or have been: No Immunizations Up To Date Tetanus Booster (TDap): Less than 5yrs PED Vaccines UTD: Yes First/Initial COVID19 Vaccinat: NONE Second COVID19 Vaccination Arley: NONE\\ Third COVID19 Vaccination Date: NONE Seasonal Allergies Seasonal Allergies: Yes Past Medical History Surgery/Hospitalization HX: pacemaker, CHF, A-fib, Cardiac cath, 3 cardiac ablasions, hysterectomy, appendectomy, tonsillectomy, titi, hiatal hernia, ureteral stent, d&c,BLADDER SLINGafib, chf, copd, renal stones, htn, high cholesterol, liver disease,barrettsesophagus, hypothryoidism Surgeries: Yes Abdominal, Bladder Surgery, Gallbladder, Pacemaker, Tonsillectomy Respiratory: No (HX PARALYZED DIAPHRAGM) Pneumonia, COPD Currently Using CPAP: No Currently Using BIPAP: No Cardiac: Yes Atrial Fibrillation Neurological: Yes (Right diaphragmatic paralysis) Stroke Female 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 Disorders: Denies 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: Hysterectomy Sexually Transmitted Disease: No Genitourinary: Yes Kidney Stones Gastrointestinal: Yes Reina's Esophagus, Hemorrhoids, Hiatal Hernia Musculoskeletal: Yes Back Injury Endocrine: No Hypothyroidsim HEENT: No Loss of Vision: Denies Hearing Impairment: Denies Cancer: No Psychosocial: Yes PTSD, Depression Integumentary: Yes Psoriasis Blood Disorders: No Family Medical History Colon cancer Noncontributory Physical Exam Vital Signs Vital Signs - First Documented 02/15/22 11:20 Temp 37.0 Pulse 77 Resp 16 B/P (MAP) 170/103 (125) Pulse Ox 95 Capillary Refill : Less Than 3 Seconds Height, Weight, BMI Height: '" Weight: lbs. oz. kg; 34.00 BMI Method: General Appearance: WD/WN, no apparent distress HEENT: PERRL/EOMI, normal ENT inspection, TMs normal, pharynx normal Neck: non-tender, full range of motion, supple Cardiovascular: regular rate, rhythm, no edema, no gallop, no JVD Respiratory: chest non-tender, lungs clear, normal breath sounds, no respiratory distress, no accessory muscle use Gastrointestinal: normal bowel sounds, non tender, soft, no organomegaly Pelvic: normal external exam, normal adnexa Back: normal inspection, no CVA tenderness Extremities: normal range of motion, non-tender, normal inspection, no pedal edema Neurologic/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: 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 as tested, no motor/sensory deficits, alert, normal mood/affect, oriented x 3 Skin: normal color, warm/dry Progress/Results/Core Measures Suspected Sepsis SIRS Temperature: Pulse: 77 Respiratory Rate: 16 Laboratory Tests 02/15/22 11:32: White Blood Count 6.9 Blood Pressure 170 /103 Mean: 125 Laboratory Tests 02/15/22 11:32: Creatinine 0.99, Platelet Count 259, Total Bilirubin 0.4 Results/Orders Lab Results Laboratory Tests Test 02/15/22 11:32 02/15/22 11:50 Range/Units White Blood Count 6.9 4.3-11.0 10^3/uL Red Blood Count 4.58 3.80-5.11 10^6/uL Hemoglobin 13.4 11.5-16.0 g/dL Hematocrit 39 35-52 % Mean Corpuscular Volume 86 80-99 fL Mean Corpuscular Hemoglobin 29 25-34 pg Mean Corpuscular Hemoglobin Concent 34 32-36 g/dL Red Cell Distribution Width 13.1 10.0-14.5 % Platelet Count 259 130-400 10^3/uL Mean Platelet Volume 10.0 9.0-12.2 fL Immature Granulocyte % (Auto) 0 % Neutrophils (%) (Auto) 63 42-75 % Lymphocytes (%) (Auto) 26 12-44 % Monocytes (%) (Auto) 9 0-12 % Eosinophils (%) (Auto) 3 0-10 % Basophils (%) (Auto) 1 0-10 % Neutrophils # (Auto) 4.3 1.8-7.8 10^3/uL Lymphocytes # (Auto) 1.8 1.0-4.0 10^3/uL Monocytes # (Auto) 0.6 0.0-1.0 10^3/uL Eosinophils # (Auto) 0.2 0.0-0.3 10^3/uL Basophils # (Auto) 0.0 0.0-0.1 10^3/uL Immature Granulocyte # (Auto) 0.0 0.0-0.1 10^3/uL Sodium Level 141 135-145 MMOL/L Potassium Level 3.8 3.6-5.0 MMOL/L Chloride Level 109 H 98-107 MMOL/L Carbon Dioxide Level 22 21-32 MMOL/L Anion Gap 10 5-14 MMOL/L Blood Urea Nitrogen 13 7-18 MG/DL Creatinine 0.99 0.60-1.30 MG/DL Estimat Glomerular Filtration Rate 68 BUN/Creatinine Ratio 13 Glucose Level 103 70-105 MG/DL Calcium Level 9.6 8.5-10.1 MG/DL Corrected Calcium 9.4 8.5-10.1 MG/DL Total Bilirubin 0.4 0.1-1.0 MG/DL Aspartate Amino Transf (AST/SGOT) 19 5-34 U/L Alanine Aminotransferase (ALT/SGPT) 31 0-55 U/L Alkaline Phosphatase 80 40-136 U/L Total Protein 7.1 6.4-8.2 GM/DL Albumin 4.3 3.2-4.5 GM/DL Urine Color RED H Urine Clarity CLOUDY Urine pH 7.0 5-9 Urine Specific [place] 1.020 1.016-1.022 Urine Protein 3+ H NEGATIVE Urine Glucose (UA) TRACE H NEGATIVE Urine Ketones 1+ H NEGATIVE Urine Nitrite POSITIVE H NEGATIVE Urine Bilirubin NEGATIVE NEGATIVE Urine Urobilinogen 4.0 < = 1.0 MG/DL Urine Leukocyte Esterase 2+ H NEGATIVE Urine RBC (Auto) 3+ H NEGATIVE Urine RBC TNTC H /HPF Urine WBC 10-25 H /HPF Urine Squamous Epithelial Cells 2-5 /HPF Urine Crystals NONE /LPF Urine Bacteria LARGE H /HPF Urine Casts NONE /LPF Urine Mucus NEGATIVE /LPF Urine Culture Indicated YES My Orders Orders - MATT AUSTIN Iv/Invasive Line Insertion .IV start (02/15/22 11:35) Ns Iv 1000 Ml (Sodium Chloride 0.9%) (02/15/22 11:35) Ketorolac Injection (Toradol Injection) (02/15/22 11:45) Ondansetron Injection (Zofran Injectio (02/15/22 11:45) Abdomen/Kub 1view (02/15/22 11:35) Cbc With Automated Diff (02/15/22 11:37) Comprehensive Metabolic Panel (02/15/22 11:37) Morphine Injection (Morphine Injection (02/15/22 11:45) Urinalysis (02/15/22 12:08) Urine Culture (02/15/22 11:50) Ceftriaxone 1 Gm Pre-Mix (Rocephin 1 Gm (02/15/22 12:51) Morphine Injection (Morphine Injection (02/15/22 13:00) Ketorolac Injection (Toradol Injection) (02/15/22 14:15) Medications Given in ED Current Medications Medications Dose Ordered Sig/Giselle Route Start Time Stop Time Status Last Admin Dose Admin Ketorolac Tromethamine 30 mg ONCE ONCE IVP 02/15/22 11:45 02/15/22 11:46 DC 02/15/22 12:03 30 MG Morphine Sulfate 4 mg ONCE ONCE IVP 02/15/22 11:45 02/15/22 11:46 DC 02/15/22 12:03 4 MG Morphine Sulfate 4 mg ONCE ONCE IVP 02/15/22 13:00 02/15/22 13:01 DC 02/15/22 12:56 4 MG Ondansetron HCl 4 mg ONCE ONCE IVP 02/15/22 11:45 02/15/22 11:46 DC 02/15/22 12:04 4 MG Vital Signs/I&O 02/15/22 11:20 Temp 37.0 Pulse 77 Resp 16 B/P (MAP) 170/103 (125) Pulse Ox 95 Capillary Refill : Less Than 3 Seconds Blood Pressure Mean: 125 Departure Communication (PCP) Patient with continuous right flank pain since being diagnosed with kidney stone a few weeks ago. Had a ureteral stent placed by Dr. Campa 1 week ago. Scheduled for lithotripsy next Thursday. Ran out of pain medication. She was started on a liter of fluid. Patient Was given 2 rounds of morphine and Toradol with improvement of pain. KUB did note similar stone proximal to the ureteral stent and distally. No significant changes. normal white blood count, kidney function. Urinalysis concerning for UTI. She had a urine culture on 02 February that tested positive for Strep anginosus. She was given a dose of Rocephin here. Will discharge with Keflex. Will discharge with pain medication. Meg ent is urinating but did have some urinary discomfort over the past few days. Patient does not appear toxic or septic. If any worsening symptoms such as fever, body aches chills decreased urine output to return back to ED. Patient urinated several times here in the ED Impression Primary Impression: Nephrolithiasis Additional Impression: UTI (urinary tract infection) Disposition: HOME, SELF-CARE Condition: Stable Departure-Patient Inst. Decision time for Depature: 14:05 Referrals: JIMY BENNETT MD (PCP/Family) Primary Care Physician TYESHA POPE MD Patient Instructions: Kidney Stone, Adult ED Scripts Hydrocodone/Acetaminophen (Hydrocodone-Acetamin 5-325 mg) 5 Mg-325 Mg Tablet 1 TAB PO Q4H PRN for PAIN-MODERATE (5-7), #10 TAB Prov: MATT AUSTIN 02/15/22 Cephalexin (Cephalexin) 500 Mg Tablet 500 MG PO QID for 7 Days, #28 TAB Prov: MATT AUSTIN 02/15/22 MATT AUSTIN Feb 15, 2022 11:52
[2022-02-15 11:55] LABS: ALBUMIN 4.3 GM/DL (3.2-4.5); POTASSIUM 3.8 MMOL/L (3.6-5.0)
[2022-02-15 11:57] LABS: CALCIUM 9.6 MG/DL (8.5-10.1)
[2022-02-15 11:58] LABS: TOTAL PROTEIN 7.1 GM/DL (6.4-8.2)
[2022-02-15 12:00] LABS: BILIRUBIN,TOTAL 0.4 MG/DL (0.1-1.0)
[2022-02-15 12:02] LABS: CREATININE SERUM 0.99 MG/DL (0.60-1.30)
[2022-02-15 12:20] LABS: BILIRUBIN,URINE NEGATIVE (NEGATIVE); CLARITY,URINE CLOUDY; COLOR,URINE RED; GLUCOSE, URINE (UA) TRACE (NEGATIVE); KETONES,URINE 1+ (NEGATIVE); LEUKOCYTE ESTERASE ,URINE 2+ (NEGATIVE); NITRITE,URINE POSITIVE (NEGATIVE); PROTEIN,URINE 3+ (NEGATIVE)
[2022-02-15 12:34] LABS: BACTERIA,URINE LARGE /HPF; RBC,URINE TNTC /HPF
--- NOTE | 2022-02-15 12:43 | Diagnostic Imaging Report ---
INDICATION: Right flank pain. COMPARISON is made with prior exam of 02/07/2022. FINDINGS: A right nephroureteral stent is in place. There appear to be some persistent calcifications within the right kidney. The bowel gas pattern is nonspecific. No definite stones are seen along the course of the ureteral stent. IMPRESSION: Persistent stones projecting over the right renal silhouette. The calcifications seen within the pelvis are likely phleboliths although it is difficult to completely exclude a distal ureteral stone along the stent. Dictated by: Dictated on workstation # [id number]
[2022-02-15] MEDS ORDERED: cefTRIAXone 1 GM PRE-MIX 50 ML IV STA (12:51)
[2022-02-15] MEDS ORDERED: ACHD5005 PO (14:05)
[2022-02-15] MEDS ORDERED: CEPH500T PO (14:05)
[2022-02-15 14:13] VITALS: BP 160/103
== END 2022-02-15 14:13 | disposition home or self-care (01) ==
LOC: EDUNIT# 11:12 → ER 11:13
DX: N39.0 Urinary tract infection, site not specified (principal); N20.0 Calculus of kidney; Z96.0 Presence of urogenital implants; Z98.890 Other specified postprocedural states; Z91.040 Latex allergy status; Z28.310 Unvaccinated for COVID-19
CPT/HCPCS: 36415; 74018; 80053; 81000; 85025; 87088

== ENCOUNTER 2022-02-18 05:55 | Day surgery (SDC) | payer BC ==
[2022-02-18] VITALS (11 sets, daily range): BP systolic 113–141; BP diastolic 73–96
[~2022-02-18] VITALS: Ht 157.5 cm; Wt 87.9 kg
[~2022-02-18 05:55] MED LIST changes: +CEPH500T PO
[2022-02-18] MEDS ORDERED: cefTRIAXone 1 GM PRE-MIX 50 ML IV ONE (06:45)
[2022-02-18] MEDS ORDERED: ONDANSETRON 4 MG/2 ML (SDV) Z0FRAN IV ONE (07:15)
[2022-02-18] MEDS ORDERED: MIDAZOLAM 2 MG/2 ML (VERSED) VIAL IV ONE (07:15)
[2022-02-18] MEDS ORDERED: FAMOTIDINE 20MG/2ML IV (PEPCID) IV ONE (07:15)
--- NOTE | 2022-02-18 07:17 | Progress Note-Pre Operative ---
Pre-Operative Progress Note Date of Available H&P: Feb 18, 2022 Date H&P Reviewed: Feb 18, 2022 Time H&P Reviewed: 07:16 Changes from last HP NONE Pre-Operative Diagnosis: RT RENAL STONE TYESHA POPE MD Feb 18, 2022 07:17
[2022-02-18] MEDS: LACTATED RINGERS 1,000 ML IV PRN ×2 (07:51→08:41)
[2022-02-18] MEDS ORDERED: proPOfol 200 MG/20 ML (DIPRIVAN) VIAL IV ONE (08:12)
[2022-02-18] MEDS ORDERED: LIDOCAINE PF 2% 5 ML (XYLOCAINE) VIAL ONE ×2 (08:12→09:25)
[2022-02-18] MEDS ORDERED: fentaNYL INJ 100 MCG/2 ML AMP ONE (08:13)
--- NOTE | 2022-02-18 08:37 | Progress Note-Post Operative ---
Post-Operative Progess Note Surgeon (s)/Panel Assembler (s) Surgeon TYESHA POPE MD Panel Assembler: NONE Pre-Operative Diagnosis RT RENAL STONE Post-Operative Diagnosis SAME Procedure & Operative Findings Date of Procedure 02/18/22 Procedure Performed/Findings RT ESWL Anesthesia Type GENERAL Estimated Blood Loss Estimated blood loss (mL): NONE Specimens/Packing Specimens Removed NONE Packing: NONE TYESHA POPE MD Feb 18, 2022 08:37
--- NOTE | 2022-02-18 08:39 | Discharge Inst-Urology ---
Discharge Inst-Urology Reconcile Patient Problems Problems Reviewed?: Yes Final Diagnosis RT RENAL STONE Patient Instructions/Follow Up Plan/Assessment/Instructions Please make appointment to been seen in office Saturday 03/03, KUB prior to it. KUB on way home In 72hours, if no bleedings, may resume Xarelto Increase oral fluids for 48 hours and then as needed. Diet and Activity as tolerated. If questions or concerns contact your physician Or seek help at emergency department. TYESHA POPE MD Feb 18, 2022 08:39
--- NOTE | 2022-02-18 08:41 | Diagnostic Imaging Report ---
INDICATION: Nephrolithiasis, extracorporeal shock wave lithotripsy. TECHNIQUE: Single view of the abdomen 6:19 AM CORRELATION STUDY: 02/15/2022 FINDINGS: Right ureteral stent is stable in configuration and position. Approximately 6 mm calcification projecting over the proximal loop unchanged. Linear density projects just lateral to the mid stent. Calcification in the pelvis likely phleboliths. Additional calcification adjacent distal loop may reflect a small bladder stone. Large amount of overlying bowel gas and stool obscures detail. There is mild leftward curvature and rotation lumbar spine. IMPRESSION: 1. Stable positioning of the right ureteral stent. Suspect calcifications remaining over the exact location right renal pelvis. Dictated by: Dictated on workstation # [id number]
[2022-02-18] MEDS ORDERED: ESMOLOL 100 MG/10 ML (BREVIBLOC) VIAL ONE (09:24)
[2022-02-18] MEDS ORDERED: KETOROLAC 30 MG/ML VIAL ONE (09:31)
[2022-02-18] MEDS ORDERED: FUROSEMIDE 40 MG/4 ML INJ (LASIX) ONE (09:31)
[2022-02-18] MEDS ORDERED: SEVOFLURANE (ULTANE) 15 ML INHAL SOLN ONE (09:33)
[2022-02-18] MEDS ORDERED: morphine INJ 10 MG/ML 1ML (SYR OR VIAL) ONE (09:51)
[2022-02-18] MEDS ORDERED: ONDANSETRON 4 MG/2 ML (SDV) Z0FRAN ONE (09:51)
[2022-02-18] MEDS ORDERED: PHENYLEPHRINE 100 MCG/ML 10 ML (ANESTHESIA) SYR ONE (09:53)
[2022-02-18] MEDS ORDERED: morphine INJ 10 MG/ML 1ML (SYR OR VIAL) IVP ONE (10:00)
[2022-02-18] MEDS ORDERED: ONDANSETRON 4 MG/2 ML (SDV) Z0FRAN IVP PRN (10:00)
[2022-02-18] MEDS ORDERED: HYDROmorphone 2 MG/ML VIAL (DILAUDID) IV ONE (10:00)
[2022-02-18] MEDS ORDERED: ACHD5005 PO (11:33)
[2022-02-18] MEDS ORDERED: PHEN-640 PO (11:33)
[2022-02-18] MEDS ORDERED: KETO10TA PO (11:33)
[2022-02-18] MEDS ORDERED: NITR-65 PO (11:33)
[2022-02-18] MEDS ORDERED: TMSL.4C PO (11:33)
[2022-02-18] MEDS ORDERED: HYDROcodone/APAP 5 MG/325 MG (LORTAB) TAB PO ONE (11:35)
[2022-02-18] MEDS ORDERED: HYDROcodone/APAP 5 MG/325 MG (LORTAB) TAB ONE (11:37)
--- NOTE | 2022-02-18 12:44 | Diagnostic Imaging Report ---
ABDOMEN/KUB 1VIEW INDICATION: Renal stone. Status post lithotripsy. COMPARISON: 02/18/2022 TECHNIQUE: AP view of the abdomen. FINDINGS: Stable position of right nephroureteral stent. Stable 6 mm calcific density adjacent to the stent in the expected region of the renal pelvis. Pelvic phleboliths are unchanged. IMPRESSION: Stable appearance of the right renal stone likely in the renal pelvis. Dictated by: Dictated on workstation # [id number]
--- NOTE | 2022-02-18 13:12 | Anesthesia-General Post-Op ---
General Patient Condition Mental Status/LOC: Same as Preop Cardiovascular: Satisfactory Nausea/Vomiting: Absent Respiratory: Satisfactory Pain: Controlled Complications: Absent Post Op Complications Complications None Follow Up Care/Instructions Patient Instructions None needed. Anesthesia/Patient Condition Patient Condition Patient was doing well after the procedure in PACU with no signs of PVC's/V- tach, which were related to the ESWL procedure. She had no complaints, stable vital signs, no apparent adverse anesthesia problems. No complications reported per nursing. JO MOORE DO Feb 18, 2022 13:12
--- NOTE | 2022-02-18 14:49 | OPERATIVE REPORT ---
DATE OF SERVICE: 02/18/2022 PREOPERATIVE DIAGNOSIS: Right renal stone. POSTOPERATIVE DIAGNOSIS: Right renal stone. OPERATION PERFORMED: Right ESWL. SURGEON: Cooper Pope MD ANESTHESIA: General. COMPLICATIONS: Arrhythmia, which responded to medications, pacing and lowering the kV voltage. DESCRIPTION OF PROCEDURE: Under satisfactory general anesthesia, the patient in supine position on the ESWL table, we localized the right renal stone. Delivered shocks gradually increasing to kV of 6. After 900 shocks, the patient started having some runs of PVCs intermittently, which finally responded to medication, pacing and lowering the kV to 4. She continued well until 2500 shocks with no further arrhythmias. Her vital signs remained stable at all time as well as her perfusion. The stone fragmented very nicely and hardly seen on the fluoroscopy. The patient received 40 mg of Lasix and 30 mg of Toradol IV at the end of the procedure. She tolerated the procedure otherwise and anesthesia well and was sent to recovery room in stable and condition observed in the recovery room for an hour and decide the next step. Job ID: [id number] DocumentID: [id number] Dictated Date: 02/18/2022 09:34:36 School [employer] Date: 02/18/2022 14:49:00 Dictated By: COOPER POPE MD
== END 2022-02-18 12:24 | disposition home or self-care (01) ==
LOC: SDC 05:55
PROVIDERS: ATTEND Urology
DX: N20.0 Calculus of kidney (principal); I49.9 Cardiac arrhythmia, unspecified; Z28.310 Unvaccinated for COVID-19; Z91.040 Latex allergy status; Z79.01 Long term (current) use of anticoagulants
CPT/HCPCS: 74018; 87081

== ENCOUNTER → 2022-03-03 | Outpatient (CLI) | payer BC ==
[~2022-03-03] MED LIST changes: +KETO10TA PO; +NITR-65 PO; +PHEN-640 PO
--- NOTE | 2022-03-03 16:01 | Diagnostic Imaging Report ---
INDICATION: Followup ureteral calculi. COMPARISON: 02/18/2022. FINDINGS: Two frontal radiographic views of the abdomen were obtained. The right-sided double-J ureteral stent is again identified. Patency of the stent cannot be assessed. The stent does appear to be in a stable position compared to the prior radiograph. Multiple extraosseous calcifications are noted. The calculus described projecting near the cephalad portion of the ureteral stent is not identified on this exam. No other unexpected radiopaque foreign bodies are seen. The small bowel loops are nondistended. There is no large collection of free intraperitoneal air. IMPRESSION: 1. Redemonstration of the right-sided double-J ureteral calculus in stable position. 2. The previously described potential right renal pelvic calculus is not identified on this exam. 3. Nonobstructed small bowel gas pattern. Dictated by: Dictated on workstation # [id number]
== END ==
LOC: RAD 13:10
PROVIDERS: ATTEND Urology
DX: N20.2 Calculus of kidney with calculus of ureter (principal)
CPT/HCPCS: 74018

== ENCOUNTER 2022-03-07 11:10 | Emergency (ER) | payer BC ==
[~2022-03-07] VITALS: Ht 157.4 cm; Wt 86.1 kg
[2022-03-07] MEDS ORDERED: ASPIRIN 81 MG CHEW (CHILDREN'S ASA) PO ONE (11:15)
--- NOTE | 2022-03-07 11:28 | ED Cardiac General ---
History of Present Illness General Chief Complaint: Chest Pain Stated Complaint: CP,N/V SWEATS Nursing Triage Note: PT AMB TO 2 A/O X4. PT STATED THAT SHE HAD CHEST PAIN THAT STARTED AT 1000 THIS MORNING. PT DESCRIBED THE PAIN TIGHT AND SHARP. PT DENISES TAKING NITRO OR ASPRIN TODAY. Source: patient Exam Limitations: no limitations (PIERRE JOSEPH APRN) History of Present Illness Date Seen by Provider: Mar 07, 2022 Time Seen by Provider: 11:25 Initial Comments To ER by private vehicle with reports of chest tightness, palpitations shortness of breath and a sharp twinge of pain in the chest that began at around 10 AM this morning while sitting in her chair. No fevers or chills or cough. She has known atrial flutter and is on Cardizem. She recently had a kidney stone and so she was off of her Eliquis but restarted that about 5 days ago. 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 ASA po JAVA XML DEVELOPER: No Associated Systoms: Denies Symptoms (PIERRE JOSEPH APRN) Allergies and Home Medications Allergies Coded Allergies: Latex, Natural Rubber (Verified Allergy, Intermediate, Shortness of Breath, PARALIZED DIAHPHRAM, 02/17/22) Patient Home Medication List Home Medication List Reviewed: Yes (PIERRE JOSEPH APRN) Albuterol Sulfate (Albuterol Sulfate) 1.25 Mg/3 Ml Vial.neb, 3 ML NEB Q8H PRN for SHORTNESS OF BREATH Prescribed by: ELISE DUDLEY on 10/16/21 0904 Cephalexin (Cephalexin) 500 Mg Tablet, 500 MG PO QID Prescribed by: SOLIS COLLIER on 02/15/22 1405 Clonidine HCl (Clonidine HCl) 0.1 Mg Tablet, 0.1 MG PO BID PRN for BLOOD PRESSURE, (Reported) Entered as Reported by: LEOBARDO CARLIN on 08/26/21 1043 Diazepam (Diazepam) 5 Mg Tablet, 5 MG PO BID PRN for ANXIETY, (Reported) Entered as Reported by: LEOBARDO CARLIN on 08/26/21 1043 Diltiazem HCl (Diltiazem 24Hr ER) 120 Mg Cap.er.24h, 120 MG PO BID Prescribed by: JONO SNYDER on 01/17/22 1253 Hydrocodone/Acetaminophen (Hydrocodone-Acetamin 5-325 mg) 5 Mg-325 Mg Tablet, 1- 2 TAB PO Q6H PRN for PAIN-SEVERE (8-10) Prescribed by: DOREEN VAZQUEZ on 02/18/22 1133 Ketorolac Tromethamine (Ketorolac Tromethamine) 10 Mg Tablet, 10 MG PO Q6H PRN for PAIN-MODERATE (5-7) Prescribed by: DOREEN VAZQUEZ on 02/18/22 1133 Nitrofurantoin Monohyd/M-Cryst (Macrobid 100 mg Capsule) 100 Mg Capsule, 1 TAB PO BID WITH MEALS Prescribed by: DOREEN VAZQUEZ on 02/18/22 1133 Pantoprazole Sodium (Pantoprazole Sodium) 40 Mg Tablet.dr, 1 EA PO DAILY, (Reported) Entered as Reported by: MYRTLE VANN on 02/04/22 1240 Phenazopyridine HCl (Pyridium) 200 Mg Tablet, 1 TAB PO TID PRN for PAIN-MODERATE (5-7) Prescribed by: DOREEN VAZQUEZ on 02/18/22 113 Sennosides/Docusate Sodium (Stool Softener Tablet) Unknown Strength Tablet, Unknown Dose PO, (Reported) Entered as Reported by: MYRTLE VANN on 02/04/22 1240 Tamsulosin HCl (Flomax) 0.4 Mg Cap, 0.4 MG PO DAILY Prescribed by: DOREEN VAZQUEZ on 02/18/22 1133 Review of Systems Review of Systems Constitutional: see HPI EENTM: No Symptoms Reported Respiratory: No Symptoms Reported Cardiovascular: See HPI, Chest Pain, Palpitations Gastrointestinal: No Symptoms Reported Genitourinary: No Symptoms Reported Musculoskeletal: no symptoms reported Skin: no symptoms reported Psychiatric/Neurological: No Symptoms Reported Endocrine: No Symptoms Reported Hematologic/Lymphatic: No Symptoms Reported (PIERRE JOSEPH APRN) Past Idhwncm-Uynfhg-Dpdkaq Hx Patient Social History Tobacco Use?: No Substance use?: No Alcohol Use?: Yes Alcohol Frequency: Once in a while Pt feels they are or have been: Unable to obtain (PIERRE OJSEPH APRN) Immunizations Up To Date Tetanus Booster (TDap): Less than 5yrs PED Vaccines UTD: Yes Influenza Vaccine Up-to-Date: No; Not Current First/Initial COVID19 Vaccinat: NONE Second COVID19 Vaccination Arley: NONE Third COVID19 Vaccination Date: NONE (PIERRE JOSEPH APRN) Seasonal Allergies Seasonal Allergies: Yes (PIERRE JOSEPH APRN) Past Medical History Surgery/Hospitalization HX: pacemaker, CHF, A-fib, Cardiac cath, 3 cardiac ablasions, hysterectomy, appendectomy, tonsillectomy, titi, hiatal hernia, ureteral stent, d&c,BLADDER SLINGafib, chf, copd, renal stones, htn, high cholesterol, liver disease,barrettsesophagus, hypothryoidism Surgeries: Yes Abdominal, Bladder Surgery, Gallbladder, Pacemaker, Tonsillectomy Respiratory: No (HX PARALYZED DIAPHRAGM) Pneumonia, COPD Currently Using CPAP: No Currently Using BIPAP: No Cardiac: Yes (PACEMAKER) Atrial Fibrillation Neurological: Yes (Right diaphragmatic paralysis) Stroke Female 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 Sexually Transmitted Disease: No Genitourinary: Yes Kidney Stones Gastrointestinal: Yes Reina's Esophagus, Hemorrhoids, Hiatal Hernia Musculoskeletal: Yes Back Injury Endocrine: No Hypothyroidsim HEENT: No Loss of Vision: Denies Hearing Impairment: Denies Cancer: No Colon Psychosocial: Yes PTSD, Depression Integumentary: Yes Psoriasis Blood Disorders: No (PIERRE JOSEPH APRN) Family Medical History Colon cancer Noncontributory (PIERRE JOSEPH APRN) Physical Exam Vital Signs Vital Signs - First Documented 03/07/22 11:13 Temp 36.6 Pulse 120 Resp 15 B/P (MAP) 172/116 (134) Pulse Ox 98 O2 Delivery Room Air (KINGSLEY CURTIS MD) Vital Signs Capillary Refill : Less Than 3 Seconds (PIERRE JOSEPH APRN) Height, Weight, BMI Height: '" Weight: lbs. oz. kg; 34.00 BMI Method: General Appearance: No Apparent Distress, WD/WN HEENT: PERRL/EOMI, TMs Normal Neck: Full Range of Motion, Normal Inspection Respiratory: No Accessory Muscle Use, No Respiratory Distress Cardiovascular: Regular Rate, Rhythm, Normal Peripheral Pulses, Other (Narrow complex slightly irregular rate of 115-130.) Gastrointestinal: Non Tender, Soft Extremity: Normal Capillary Refill, Normal Inspection Neurologic/Psychiatric: Alert, Oriented x3 Skin: Normal Color, Warm/Dry (PIERRE JOSEPH APRN) Progress/Results/Core Measures Results/Orders Lab Results Laboratory Tests Test 03/07/22 11:35 03/07/22 11:36 03/07/22 13:30 Range/Units Urine Color BENJIE H Urine Clarity SL CLOUDY Urine pH 6.0 5-9 Urine Specific [place] 1.025 H 1.016-1.022 Urine Protein 2+ H NEGATIVE Urine Glucose (UA) NEGATIVE NEGATIVE Urine Ketones NEGATIVE NEGATIVE Urine Nitrite NEGATIVE NEGATIVE Urine Bilirubin NEGATIVE NEGATIVE Urine Urobilinogen 0.2 < = 1.0 MG/DL Urine Leukocyte Esterase TRACE H NEGATIVE Urine RBC (Auto) 3+ H NEGATIVE Urine RBC TNTC H /HPF Urine WBC 5-10 H /HPF Urine Squamous Epithelial Cells 5-10 /HPF Urine Crystals NONE /LPF Urine Bacteria TRACE /HPF Urine Casts NONE /LPF Urine Mucus NEGATIVE /LPF Urine Culture Indicated YES White Blood Count 6.8 4.3-11.0 10^3/uL Red Blood Count 5.04 3.80-5.11 10^6/uL Hemoglobin 14.7 11.5-16.0 g/dL Hematocrit 43 35-52 % Mean Corpuscular Volume 85 80-99 fL Mean Corpuscular Hemoglobin 29 25-34 pg Mean Corpuscular Hemoglobin Concent 34 32-36 g/dL Red Cell Distribution Width 13.0 10.0-14.5 % Platelet Count 245 130-400 10^3/uL Mean Platelet Volume 10.6 9.0-12.2 fL Immature Granulocyte % (Auto) 0 % Neutrophils (%) (Auto) 49 42-75 % Lymphocytes (%) (Auto) 41 12-44 % Monocytes (%) (Auto) 8 0-12 % Eosinophils (%) (Auto) 2 0-10 % Basophils (%) (Auto) 1 0-10 % Neutrophils # (Auto) 3.3 1.8-7.8 10^3/uL Lymphocytes # (Auto) 2.8 1.0-4.0 10^3/uL Monocytes # (Auto) 0.5 0.0-1.0 10^3/uL Eosinophils # (Auto) 0.1 0.0-0.3 10^3/uL Basophils # (Auto) 0.0 0.0-0.1 10^3/uL Immature Granulocyte # (Auto) 0.0 0.0-0.1 10^3/uL Prothrombin Time 22.2 H 12.2-14.7 SEC INR Comment 1.9 H 0.8-1.4 Activated Partial Thromboplast Time 40 H 24-35 SEC Sodium Level 142 135-145 MMOL/L Potassium Level 3.9 3.6-5.0 MMOL/L Chloride Level 108 H 98-107 MMOL/L Carbon Dioxide Level 21 21-32 MMOL/L Anion Gap 13 5-14 MMOL/L Blood Urea Nitrogen 14 7-18 MG/DL Creatinine 0.85 0.60-1.30 MG/DL Estimat Glomerular Filtration Rate 81 BUN/Creatinine Ratio 16 Glucose Level 111 H 70-105 MG/DL Calcium Level 9.6 8.5-10.1 MG/DL Corrected Calcium 9.2 8.5-10.1 MG/DL Magnesium Level 2.0 1.6-2.4 MG/DL Total Bilirubin 1.0 0.1-1.0 MG/DL Aspartate Amino Transf (AST/SGOT) 22 5-34 U/L Alanine Aminotransferase (ALT/SGPT) 34 0-55 U/L Alkaline Phosphatase 87 40-136 U/L Myoglobin 27.3 10.0-92.0 NG/ML Troponin I < 0.028 < 0.028 <0.028 NG/ML B-Type Natriuretic Peptide 24.5 <100.0 PG/ML Total Protein 7.6 6.4-8.2 GM/DL Albumin 4.5 3.2-4.5 GM/DL (KINGSLEY CURTIS MD) Medications Given in ED Current Medications Medications Dose Ordered Sig/Giselle Route Start Time Stop Time Status Last Admin Dose Admin Aspirin 324 mg ONCE ONCE PO 03/07/22 11:15 03/07/22 11:16 DC 03/07/22 11:38 324 MG Diltiazem HCl 10 mg ONCE ONCE IVP 03/07/22 11:30 03/07/22 11:31 DC 03/07/22 11:39 10 MG Metoprolol Tartrate 5 mg ONCE ONCE IV 03/07/22 13:00 03/07/22 13:01 DC 03/07/22 12:53 5 MG Ondansetron HCl 8 mg ONCE ONCE IVP 03/07/22 12:00 03/07/22 12:01 DC 03/07/22 11:59 8 MG (KIGNSLEY CURTIS MD) Vital Signs/I&O 03/07/22 03/07/22 03/07/22 03/07/22 11:13 14:30 14:33 14:33 Temp 36.6 36.8 Pulse 120 74 74 Resp 15 22 22 B/P (MAP) 172/116 (134) 124/78 124/74 Pulse Ox 98 96 96 96 O2 Delivery Room Air Room Air Room Air Room Air 03/07/22 14:34 Temp 36.6 Pulse 74 Resp 22 B/P (MAP) 124/74 Pulse Ox 96 O2 Delivery Room Air (KINGSLEY CURTIS MD) Blood Pressure Mean: 134 Departure Communication (Admissions) 1247-still 120 atrial flutter. Cardizem bolus 10 mg and drip to milligrams an hour. Blood pressure 100/82. 1416-heart rate down to 86, still atrial fibrillation with PVC. Blood pressure 122/88. She is already anticoagulated at home with Eliquis. She has diltiazem extended release 120 mg twice a day. 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 (PIERRE JOSEPH APRN) Impression Primary Impression: Atrial flutter with rapid ventricular response Disposition: ADMITTED INPATIENT Condition: Improved Departure-Patient Inst. Decision time for Depature: 14:17 (PIERRE JOSEPH APRN) Referrals: JIMY BENNETT MD (PCP/Family) Primary Care Physician Patient Instructions: Atrial Flutter (DC) Add. Discharge Instructions: 1. Take an extra diltiazem today for a total daily dose of 360 mg. Return to ER for any worsening. Call your cardilogist thursday All discharge instructions reviewed with patient and/or family. Voiced understanding. ATTENDING PHYSICIAN NOTE: I was physically present as attending physician in the emergency department during the care of this patient, but I was not directly involved in the decision making or delivery of care for this patient. (KINGSLEY CURTIS MD) PIERRE JOSEPH APRN Mar 07, 2022 11:28 KINGSLEY CURTIS MD Mar 07, 2022 20:43
[2022-03-07] MEDS ORDERED: dilTIAZem DRIP PRE-MIX 125 ML IV SCH (11:30)
[2022-03-07 11:39] LABS: BASOPHILS % (AUTO) 1 % (0-10); EOSINOPHILS # (AUTO) 0.1 10^3/uL (0.0-0.3); EOSINOPHILS % (AUTO) 2 % (0-10); HEMATOCRIT 43 % (35-52); HEMOGLOBIN 14.7 g/dL (11.5-16.0); LYMPHOCYTES # (AUTO) 2.8 10^3/uL (1.0-4.0); LYMPHOCYTES % (AUTO) 41 % (12-44); MEAN CORPUSCULAR HEMOGLOBIN 29 pg (25-34); MEAN CORPUSCULAR HGB CONC 34 g/dL (32-36); MEAN CORPUSCULAR VOLUME 85 fL (80-99); MEAN PLATELET VOLUME 10.6 fL (9.0-12.2); MONOCYTES # (AUTO) 0.5 10^3/uL (0.0-1.0); MONOCYTES % (AUTO) 8 % (0-12); NEUTROPHILS # (AUTO) 3.3 10^3/uL (1.8-7.8); NEUTROPHILS % (AUTO) 49 % (42-75); PLATELET COUNT 245 10^3/uL (130-400); WHITE BLOOD COUNT 6.8 10^3/uL (4.3-11.0)
[2022-03-07 11:57] LABS: ALBUMIN 4.5 GM/DL (3.2-4.5); POTASSIUM 3.9 MMOL/L (3.6-5.0)
[2022-03-07 11:58] LABS: CALCIUM 9.6 MG/DL (8.5-10.1)
[2022-03-07 12:00] LABS: TOTAL PROTEIN 7.6 GM/DL (6.4-8.2)
[2022-03-07] MEDS ORDERED: ONDANSETRON 4 MG/2 ML (SDV) Z0FRAN IVP ONE (12:00)
[2022-03-07 12:01] LABS: INR 1.9 (0.8-1.4); PROTHROMBIN TIME PATIENT 22.2 SEC (12.2-14.7)
[2022-03-07 12:03] LABS: CREATININE SERUM 0.85 MG/DL (0.60-1.30)
--- NOTE | 2022-03-07 12:24 | Diagnostic Imaging Report ---
EXAMINATION: Chest 1 view HISTORY: Chest pain. COMPARISON: 01/16/2022. FINDINGS: Stable elevated right hemidiaphragm. Patchy bibasilar opacities are seen. No large pleural effusion or pneumothorax. Stable cardiac silhouette with left pectoral pacemaker in place. IMPRESSION: 1. Stable bibasilar opacities, likely representing atelectasis. 2. Chronically elevated right hemidiaphragm. Dictated by: Dictated on workstation # [id number]
[2022-03-07] MEDS ORDERED: NS IV 1000 ML 1,000 ML IV SCH (13:00)
[2022-03-07] MEDS ORDERED: meTOprolol 5 MG/5 ML (LOPRESSOR) VIAL IV ONE (13:00)
[2022-03-07 14:32] LABS: BILIRUBIN,URINE NEGATIVE (NEGATIVE); CLARITY,URINE SL CLOUDY; COLOR,URINE AMBER; GLUCOSE, URINE (UA) NEGATIVE (NEGATIVE); KETONES,URINE NEGATIVE (NEGATIVE); LEUKOCYTE ESTERASE ,URINE TRACE (NEGATIVE); NITRITE,URINE NEGATIVE (NEGATIVE); PROTEIN,URINE 2+ (NEGATIVE)
[2022-03-07 14:33] VITALS: BP 124/74
[2022-03-07 14:42] LABS: BACTERIA,URINE TRACE /HPF; RBC,URINE TNTC /HPF
== END 2022-03-07 14:30 | disposition other institution (70) ==
LOC: EDUNIT# 11:10 → ER 11:11
DX: I48.92 Unspecified atrial flutter (principal); I48.91 Unspecified atrial fibrillation; Z95.0 Presence of cardiac pacemaker; Z98.61 Coronary angioplasty status; Z91.040 Latex allergy status; Z28.310 Unvaccinated for COVID-19; Z79.01 Long term (current) use of anticoagulants; Z79.899 Other long term (current) drug therapy
CPT/HCPCS: 36415; 71045; 80053; 81000; 83735; 83874; 83880; 84484; 85025; 85610; 85730; 87088; 93005; 93041

== ENCOUNTER 2022-03-09 12:48 | Emergency (ER) | payer BC ==
[~2022-03-09] VITALS: Ht 160 cm; Wt 85.7 kg
[2022-03-09 13:32] LABS: BASOPHILS % (AUTO) 1 % (0-10); EOSINOPHILS # (AUTO) 0.2 10^3/uL (0.0-0.3); EOSINOPHILS % (AUTO) 2 % (0-10); HEMATOCRIT 42 % (35-52); HEMOGLOBIN 14.3 g/dL (11.5-16.0); LYMPHOCYTES # (AUTO) 2.6 10^3/uL (1.0-4.0); LYMPHOCYTES % (AUTO) 30 % (12-44); MEAN CORPUSCULAR HEMOGLOBIN 29 pg (25-34); MEAN CORPUSCULAR HGB CONC 34 g/dL (32-36); MEAN CORPUSCULAR VOLUME 86 fL (80-99); MEAN PLATELET VOLUME 10.8 fL (9.0-12.2); MONOCYTES # (AUTO) 0.6 10^3/uL (0.0-1.0); MONOCYTES % (AUTO) 6 % (0-12); NEUTROPHILS # (AUTO) 5.2 10^3/uL (1.8-7.8); NEUTROPHILS % (AUTO) 61 % (42-75); PLATELET COUNT 251 10^3/uL (130-400); WHITE BLOOD COUNT 8.6 10^3/uL (4.3-11.0)
[2022-03-09 13:37] LABS: CHLORIDE 107 MMOL/L (98-107); POTASSIUM 3.9 MMOL/L (3.6-5.0); SODIUM 141 MMOL/L (135-145)
[2022-03-09 13:39] LABS: GLUCOSE 102 MG/DL (70-105)
[2022-03-09 13:40] LABS: CARBON DIOXIDE 20 MMOL/L (21-32)
[2022-03-09 13:43] LABS: CREATININE SERUM 1.11 MG/DL (0.60-1.30); GFR ESTIMATED 59
[2022-03-09 13:44] LABS: BUN/CREATININE RATIO 13
[2022-03-09 13:45] LABS: MAGNESIUM 1.9 MG/DL (1.6-2.4)
[2022-03-09 14:05] LABS: CLARITY,URINE TURBID; COLOR,URINE RED; GLUCOSE, URINE (UA) NEGATIVE (NEGATIVE); KETONES,URINE NEGATIVE (NEGATIVE); LEUKOCYTE ESTERASE ,URINE 1+ (NEGATIVE); NITRITE,URINE POSITIVE (NEGATIVE); PH,URINE 6.5 (5-9); PROTEIN,URINE 3+ (NEGATIVE)
[2022-03-09 14:21] LABS: BACTERIA,URINE MODERATE /HPF; BILIRUBIN,URINE 1+ (NEGATIVE); RBC,URINE TNTC /HPF
[2022-03-09] MEDS ORDERED: cefTRIAXone 1 GM PRE-MIX 50 ML IV STA (14:26)
[2022-03-09] MEDS ORDERED: dilTIAZem120 MG (CARDIZEM CD) CAP PO STA (14:26)
--- NOTE | 2022-03-09 14:57 | ED General ---
General Chief Complaint: Cardiac/General Problems Stated Complaint: AFIB,BACK PAIN Nursing Triage Note: PT PRESENTS TO ED VIA POV FROM HOME WITH COMPLAINTS OF CONTINUED AFIB WITH INCREASED HR. PT WAS SEEN IN ED THURSDAY FOR AFIB AND PUT ON METOPROLOL. PT STATES IT HELPED INTIALLY BUT HER HR HAS BEEN INCREASING THE PAST COUPLE DAYS. Source of Information: Patient, Old Records Exam Limitations: No Limitations History of Present Illness Date Seen by Provider: Mar 09, 2022 Allergies and Home Medications Allergies Coded Allergies: Latex, Natural Rubber (Verified Allergy, Intermediate, Shortness of Breath, PARALIZED DIAHPHRAM, 02/17/22) Patient Home Medication List Albuterol Sulfate (Albuterol Sulfate) 1.25 Mg/3 Ml Vial.neb, 3 ML NEB Q8H PRN for SHORTNESS OF BREATH Prescribed by: ELISE DUDLEY on 10/16/21 0904 Cephalexin (Cephalexin) 500 Mg Tablet, 500 MG PO QID Prescribed by: SOLIS COLLIER on 02/15/22 1405 Clonidine HCl (Clonidine HCl) 0.1 Mg Tablet, 0.1 MG PO BID PRN for BLOOD PRESSURE, (Reported) Entered as Reported by: LEOBARDO CARLIN on 08/26/21 1043 Diazepam (Diazepam) 5 Mg Tablet, 5 MG PO BID PRN for ANXIETY, (Reported) Entered as Reported by: LEOBADRO CARLIN on 08/26/21 1043 Diltiazem HCl (Diltiazem 24Hr ER) 120 Mg Cap.er.24h, 120 MG PO BID Prescribed by: JONO SNYDER on 01/17/22 1253 Hydrocodone/Acetaminophen (Hydrocodone-Acetamin 5-325 mg) 5 Mg-325 Mg Tablet, 1- 2 TAB PO Q6H PRN for PAIN-SEVERE (8-10) Prescribed by: DOREEN VAZQUEZ on 02/18/22 1133 Ketorolac Tromethamine (Ketorolac Tromethamine) 10 Mg Tablet, 10 MG PO Q6H PRN for PAIN-MODERATE (5-7) Prescribed by: DOREEN VAZQUEZ on 02/18/22 1133 Nitrofurantoin Monohyd/M-Cryst (Macrobid 100 mg Capsule) 100 Mg Capsule, 1 TAB PO BID WITH MEALS Prescribed by: DOREEN VAZQUEZ on 02/18/22 1133 Pantoprazole Sodium (Pantoprazole Sodium) 40 Mg Tablet.dr, 1 EA PO DAILY, (Reported) Entered as Reported by: MYRTLE VANN on 02/04/22 1240 Phenazopyridine HCl (Pyridium) 200 Mg Tablet, 1 TAB PO TID PRN for PAIN-MODERATE (5-7) Prescribed by: DOREEN VAZQUEZ on 02/18/22 1133 Sennosides/Docusate Sodium (Stool Softener Tablet) Unknown Strength Tablet, Unknown Dose PO, (Reported) Entered as Reported by: MYRTLE VANN on 02/04/22 1240 Tamsulosin HCl (Flomax) 0.4 Mg Cap, 0.4 MG PO DAILY Prescribed by: DOREEN VAZQUEZ on 02/18/22 1133 Past Pcmadkf-Qlgkhn-Aoyiji Hx Patient Social History Tobacco Use?: No Smoking Status: Never a Smoker Substance use?: No Alcohol Use?: Yes Alcohol Frequency: Rarely Pt feels they are or have been: No Immunizations Up To Date Tetanus Booster (TDap): Less than 5yrs PED Vaccines UTD: Yes First/Initial COVID19 Vaccinat: NONE Second COVID19 Vaccination Arley: NONE Third COVID19 Vaccination Date: NONE Seasonal Allergies Seasonal Allergies: Yes Past Medical History Surgery/Hospitalization HX: pacemaker, CHF, A-fib, Cardiac cath, 3 cardiac ablasions, hysterectomy, appendectomy, tonsillectomy, titi, hiatal hernia, ureteral stent, d&c,BLADDER SLINGafib, chf, copd, renal stones, htn, high cholesterol, liver disease,barrettsesophagus, hypothryoidism Surgeries: Yes Abdominal, Bladder Surgery, Gallbladder, Pacemaker, Tonsillectomy Respiratory: No (HX PARALYZED DIAPHRAGM) Pneumonia, COPD Currently Using CPAP: No Currently Using BIPAP: No Cardiac: Yes (PACEMAKER) Atrial Fibrillation Neurological: Yes (Right diaphragmatic paralysis) Stroke 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 Sexually Transmitted Disease: No Genitourinary: Yes Kidney Stones Gastrointestinal: Yes Reina's Esophagus, Hemorrhoids, Hiatal Hernia Musculoskeletal: Yes Back Injury Endocrine: No Hypothyroidsim HEENT: No Loss of Vision: Denies Hearing Impairment: Denies Cancer: No Colon Psychosocial: Yes PTSD, Depression Integumentary: Yes Psoriasis Blood Disorders: No Family Medical History Colon cancer Noncontributory Physical Exam Vital Signs Vital Signs - First Documented 03/09/22 13:10 Temp 36.9 Pulse 126 Resp 20 B/P (MAP) 145/106 (119) Pulse Ox 97 Capillary Refill : Less Than 3 Seconds Height, Weight, BMI Height: '" Weight: lbs. oz. kg; 33.00 BMI Method: Progress/Results/Core Measures Suspected Sepsis SIRS Temperature: Pulse: 126 Respiratory Rate: 20 Laboratory Tests 03/09/22 13:06: White Blood Count 8.6 Blood Pressure 145 /106 Mean: 119 Laboratory Tests 03/09/22 13:06: Creatinine 1.11, Platelet Count 251 Results/Orders Lab Results Laboratory Tests Test 03/09/22 13:06 03/09/22 13:55 Range/Units White Blood Count 8.6 4.3-11.0 10^3/uL Red Blood Count 4.90 3.80-5.11 10^6/uL Hemoglobin 14.3 11.5-16.0 g/dL Hematocrit 42 35-52 % Mean Corpuscular Volume 86 80-99 fL Mean Corpuscular Hemoglobin 29 25-34 pg Mean Corpuscular Hemoglobin Concent 34 32-36 g/dL Red Cell Distribution Width 13.1 10.0-14.5 % Platelet Count 251 130-400 10^3/uL Mean Platelet Volume 10.8 9.0-12.2 fL Immature Granulocyte % (Auto) 0 % Neutrophils (%) (Auto) 61 42-75 % Lymphocytes (%) (Auto) 30 12-44 % Monocytes (%) (Auto) 6 0-12 % Eosinophils (%) (Auto) 2 0-10 % Basophils (%) (Auto) 1 0-10 % Neutrophils # (Auto) 5.2 1.8-7.8 10^3/uL Lymphocytes # (Auto) 2.6 1.0-4.0 10^3/uL Monocytes # (Auto) 0.6 0.0-1.0 10^3/uL Eosinophils # (Auto) 0.2 0.0-0.3 10^3/uL Basophils # (Auto) 0.0 0.0-0.1 10^3/uL Immature Granulocyte # (Auto) 0.0 0.0-0.1 10^3/uL Sodium Level 141 135-145 MMOL/L Potassium Level 3.9 3.6-5.0 MMOL/L Chloride Level 107 98-107 MMOL/L Carbon Dioxide Level 20 L 21-32 MMOL/L Anion Gap 14 5-14 MMOL/L Blood Urea Nitrogen 14 7-18 MG/DL Creatinine 1.11 0.60-1.30 MG/DL Estimat Glomerular Filtration Rate 59 BUN/Creatinine Ratio 13 Glucose Level 102 70-105 MG/DL Calcium Level 10.0 8.5-10.1 MG/DL Magnesium Level 1.9 1.6-2.4 MG/DL Troponin I < 0.028 <0.028 NG/ML B-Type Natriuretic Peptide 34.2 <100.0 PG/ML Urine Color RED H Urine Clarity TURBID Urine pH 6.5 5-9 Urine Specific [place] >=1.030 1.016-1.022 Urine Protein 3+ H NEGATIVE Urine Glucose (UA) NEGATIVE NEGATIVE Urine Ketones NEGATIVE NEGATIVE Urine Nitrite POSITIVE H NEGATIVE Urine Bilirubin 1+ H NEGATIVE Urine Urobilinogen 1.0 < = 1.0 MG/DL Urine Leukocyte Esterase 1+ H NEGATIVE Urine RBC (Auto) 3+ H NEGATIVE Urine RBC TNTC H /HPF Urine WBC 5-10 H /HPF Urine Squamous Epithelial Cells 5-10 /HPF Urine Crystals NONE /LPF Urine Bacteria MODERATE H /HPF Urine Casts NONE /LPF Urine Mucus NEGATIVE /LPF Urine Culture Indicated YES My Orders Orders - KINGSLEY CURTIS MD Ekg Tracing (03/09/22 12:52) Monitor-Rhythm Ecg Trace Only (03/09/22 12:52) Ua Culture If Indicated (03/09/22 12:52) Basic Metabolic Panel (03/09/22 13:26) Bnp Ay[place] (03/09/22 13:26) Cbc With Automated Diff (03/09/22 13:26) Magnesium (03/09/22 13:26) Troponin I [place] (03/09/22 13:26) Ed Iv/Invasive Line Start (03/09/22 13:26) Diltiazem Injection (Cardizem Injection) (03/09/22 13:45) Urine Culture (03/09/22 13:55) Ceftriaxone 1 Gm Pre-Mix (Rocephin 1 Gm (03/09/22 14:26) Diltiazem Cd 24 Hr Capsule (Cardizem Cd (03/09/22 14:26) Medications Given in ED Current Medications Medications Dose Ordered Sig/Giselle Route Start Time Stop Time Status Last Admin Dose Admin Diltiazem HCl 10 mg ONCE ONCE IVP 03/09/22 13:45 03/09/22 13:46 DC 03/09/22 14:00 10 MG Vital Signs/I&O 03/09/22 13:10 Temp 36.9 Pulse 126 Resp 20 B/P (MAP) 145/106 (119) Pulse Ox 97 Capillary Refill : Less Than 3 Seconds Blood Pressure Mean: 119 Departure Impression Primary Impression: Paroxysmal atrial fibrillation Additional Impression: Other acute postprocedural pain Disposition: HOME, SELF-CARE Condition: Stable Departure-Patient Inst. Decision time for Depature: 14:52 Referrals: JIMY BENNETT MD (PCP/Family) Primary Care Physician Patient Instructions: Atrial Fibrillation Add. Discharge Instructions: Your situation was discussed with Dr. Jenkins. He would like to proceed with removal of the stent in the office setting as scheduled. He suggest that you take your diazepam about 1 hour prior to arriving at his office to help with anxiety. Continue with Xarelto as previously prescribed. You do not need to stop Xarelto for your stent removal. It is possible you have some infection in your urine at this time. A dose of IV antibiotics was administered in the emergency room. No oral antibiotics are prescribed at this time, but Dr. Jenkins would like to discuss whether oral antibi otics are necessary when he sees you for the stent removal. He can review the second urine culture with you at that time. Contact Dr. Ruvalcaba on Thursday to discuss your recurrent atrial fibrillation and your heart rate. Until then, increase your Cardizem to a total of 360 mg/day. You may take Cardizem 120 mg tonight at your usual dosing time. In the morning you may take Cardizem 240 mg. Until otherwise instructed by Dr. Ruvalcaba, continue taking Cardizem 240 mg in the morning and 120 mg in the evening. Continue with your other cardiac and blood pressure medications until otherwise instructed. Use your pain medication as prescribed. Return to the ER if you have worsening symptoms despite following these instructions. You may have periodic elevation in heart rate. If your heart rate stays persistently above 120 bpm at rest, you may return to the emergency room for further evaluation. Also return to the emergency room if you have worsening symptoms such as recurrent chest pain, worsening shortness of breath, fevers, etc. All discharge instructions reviewed with patient and/or family. Voiced understanding. Scripts Hydrocodone/Acetaminophen (Hydrocodone-Acetamin 5-325 mg) 5 Mg-325 Mg Tablet 1 TAB PO Q4H PRN for PAIN-MODERATE (5-7), #10 TAB Prov: KINGSLEY CURTIS MD 03/09/22 KINGSLEY CURTIS MD Mar 09, 2022 14:57
[2022-03-09] MEDS ORDERED: ACHD5005 PO (14:58)
[2022-03-09 15:10] VITALS: BP 140/102
[2022-03-10] MEDS ORDERED: DILT-27 PO (15:58)
[2022-03-10] MEDS ORDERED: ZINC PO (15:58)
[2022-03-10] MEDS ORDERED: VIT C PO (15:58)
[2022-03-10] MEDS ORDERED: VITA100033 PO (15:58)
[2022-03-10] MEDS ORDERED: ALBU2.5V4 NEB (15:58)
[2022-03-10] MEDS ORDERED: RIVA20TA PO (15:58)
[2022-03-10] MEDS ORDERED: FISH1CAP15 PO (15:58)
[2022-03-10] MEDS ORDERED: TIOT4MIS5 IH (15:58)
[2022-03-10] MEDS ORDERED: VIT D PO (15:58)
[2022-03-10] MEDS ORDERED: SUMA50TA2 PO (15:58)
[2022-03-10] MEDS ORDERED: ACHD5005 PO (15:58)
[2022-03-10] MEDS ORDERED: FURO40TA4 PO (15:58)
== END 2022-03-09 15:09 | disposition home or self-care (01) ==
LOC: EDUNIT# 12:48 → ER 12:49
DX: I48.0 Paroxysmal atrial fibrillation (principal); G89.18 Other acute postprocedural pain; M54.9 Dorsalgia, unspecified; Z91.040 Latex allergy status
CPT/HCPCS: 36415; 80048; 81000; 83735; 83880; 84484; 85025; 87088; 93005; 93041

== ENCOUNTER 2022-03-10 13:52 | Observation (INO) | payer BC ==
[~2022-03-10] VITALS: Ht 160 cm; Wt 91.2 kg
[2022-03-10] MEDS ORDERED: dilTIAZem DRIP PRE-MIX 125 ML IV SCH (14:15)
[2022-03-10] MEDS ORDERED: AMIODARONE FOR BOLUS 150 MG in NS (IVPB) 100 ML IV ONE (14:15)
[2022-03-10] MEDS ORDERED: CATHETER FLUSH 10 ML SYR IV PRN (14:30)
[2022-03-10] MEDS ORDERED: ONDANSETRON 4 MG/2 ML (SDV) Z0FRAN IVP PRN (14:30)
[2022-03-10 14:40] LABS: HEMATOCRIT 41 % (35-52); HEMOGLOBIN 14.3 g/dL (11.5-16.0); MEAN CORPUSCULAR HEMOGLOBIN 30 pg (25-34); MEAN CORPUSCULAR HGB CONC 35 g/dL (32-36); MEAN CORPUSCULAR VOLUME 85 fL (80-99); MEAN PLATELET VOLUME 10.8 fL (9.0-12.2); PLATELET COUNT 251 10^3/uL (130-400)
[2022-03-10 14:53] LABS: ALBUMIN 4.3 GM/DL (3.2-4.5)
[2022-03-10 14:54] LABS: POTASSIUM 3.6 MMOL/L (3.6-5.0)
[2022-03-10 14:55] VITALS: BP 130/107
[2022-03-10 14:55] LABS: CALCIUM 9.6 MG/DL (8.5-10.1)
[2022-03-10 14:56] LABS: TOTAL PROTEIN 7.2 GM/DL (6.4-8.2)
[2022-03-10 14:58] LABS: BILIRUBIN,TOTAL 0.9 MG/DL (0.1-1.0)
[2022-03-10 15:00] LABS: CREATININE SERUM 1.01 MG/DL (0.60-1.30)
[2022-03-10] MEDS: AMIODARONE INJECTION 450 MG in NORMAL SALINE 250 ML IV SCH ×2 (15:09→23:40)
[2022-03-10] MEDS ORDERED: morphine INJ 10 MG/ML 1ML (SYR OR VIAL) IVP STA (15:13)
[2022-03-10] MEDS ORDERED: FUROSEMIDE 40 MG/4 ML INJ (LASIX) IVP NR (15:15)
[2022-03-10] MEDS ORDERED: DILT-27 PO (15:58)
[2022-03-10] MEDS ORDERED: FISH1CAP15 PO (15:58)
[2022-03-10] MEDS ORDERED: TIOT4MIS5 IH (15:58)
[2022-03-10] MEDS ORDERED: ZINC PO (15:58)
[2022-03-10] MEDS ORDERED: ACHD5005 PO (15:58)
[2022-03-10] MEDS ORDERED: SUMA50TA2 PO (15:58)
[2022-03-10] MEDS ORDERED: VIT C PO (15:58)
[2022-03-10] MEDS ORDERED: VIT D PO (15:58)
[2022-03-10] MEDS ORDERED: VITA100033 PO (15:58)
[2022-03-10] MEDS ORDERED: RIVA20TA PO (15:58)
[2022-03-10] MEDS ORDERED: FURO40TA4 PO (15:58)
[2022-03-10] MEDS ORDERED: ALBU2.5V4 NEB (15:58)
[2022-03-10] MEDS ORDERED: RIVAROXABAN 20 MG TABLET (XARELTO) PO SCH (17:00)
--- NOTE | 2022-03-10 18:08 | Tele-ICU Progress Note ---
Progress Note Video assessment done , Hemodynamically stable Available charting reviewed, discussed with RN NO TELE-ICU CONSULT REQUESTED CONTINUE TO MONITOR PER USUAL TELE-ICU PROTOCOL No need for Tele-ICU interventions Plans as delineated by bedside physicians / consultants Focused Exam Height, Weight, BMI Height: '" Weight: lbs. oz. kg; 34.37 BMI Method: ALLIE GUZMAN MD Mar 10, 2022 18:08
[2022-03-10] MEDS: CATHETER FLUSH 10 ML SYR IV SCH (19:44)
[2022-03-10] MEDS ORDERED: PANTOPRAZOLE 40 MG (PROTONIX) TAB PO ONE (21:55)
[2022-03-10] MEDS ORDERED: PANTOPRAZOLE 40 MG (PROTONIX) TAB PO SCH (22:00)
[2022-03-10] MEDS ORDERED: NS IV 500 ML 500 ML IV PRN (22:00)
[2022-03-11 02:45] LABS: BASOPHILS % (AUTO) 1 % (0-10); EOSINOPHILS # (AUTO) 0.1 10^3/uL (0.0-0.3); EOSINOPHILS % (AUTO) 3 % (0-10); HEMATOCRIT 37 % (35-52); HEMOGLOBIN 12.6 g/dL (11.5-16.0); LYMPHOCYTES # (AUTO) 1.7 10^3/uL (1.0-4.0); LYMPHOCYTES % (AUTO) 37 % (12-44); MEAN CORPUSCULAR HEMOGLOBIN 29 pg (25-34); MEAN CORPUSCULAR HGB CONC 34 g/dL (32-36); MEAN CORPUSCULAR VOLUME 86 fL (80-99); MEAN PLATELET VOLUME 10.8 fL (9.0-12.2); MONOCYTES # (AUTO) 0.5 10^3/uL (0.0-1.0); MONOCYTES % (AUTO) 10 % (0-12); NEUTROPHILS # (AUTO) 2.2 10^3/uL (1.8-7.8); NEUTROPHILS % (AUTO) 49 % (42-75); PLATELET COUNT 229 10^3/uL (130-400); WHITE BLOOD COUNT 4.6 10^3/uL (4.3-11.0)
[2022-03-11 02:53] LABS: ALBUMIN 3.9 GM/DL (3.2-4.5); POTASSIUM 3.2 MMOL/L (3.6-5.0)
[2022-03-11 02:54] LABS: CALCIUM 8.8 MG/DL (8.5-10.1)
[2022-03-11 02:56] LABS: TOTAL PROTEIN 6.5 GM/DL (6.4-8.2)
[2022-03-11 02:57] LABS: BILIRUBIN,TOTAL 0.6 MG/DL (0.1-1.0)
[2022-03-11 02:59] LABS: CREATININE SERUM 0.93 MG/DL (0.60-1.30); PHOSPHORUS 4.3 MG/DL (2.3-4.7)
[2022-03-11 03:02] LABS: MAGNESIUM 1.9 MG/DL (1.6-2.4)
[2022-03-11] MEDS: CATHETER FLUSH 10 ML SYR IV SCH (03:06)
[2022-03-11] MEDS: POTASSIUM CL 10MEQ/50ML IVPB 50 ML IV SCH ×5 (03:22→06:11)
--- NOTE | 2022-03-11 05:51 | Cardiology History & Physical ---
HPI-Cardiology Cardiology Consultation Date of Consultation 03/11/22 Date of Admission Time Seen by Provider: 07:38 Indication: Atrial flutter HPI 56-year-old lady with history of paroxysmal atrial fibrillation/flutter, has been in and out of atrial flutter, underwent LENORE and cardioversion in August 2021 and was doing well. Patient has stopped taking oral anticoagulation about 5 days ago and restarted the medication. Came into the office complaining of generalized fatigue, chest pain and shortness of breath. She was noted to be in atrial flutter with rapid ventricular response. On my evaluation I recommended immediate admission to the intensive care unit and she was started on amiodarone and Cardizem drip Currently heart rate is better controlled, I am planning to proceed with LENORE and electrical cardioversion today. PMH-Cardiology Immunizations Up To Date Tetanus Booster (DTap): Less than 5yrs Date of Pneumonia Vaccine: Feb 05, 2020 Date of Influenza Vaccine: May 04, 2020 Seasonal Allergies Seasonal Allergies: Yes Surgeries Yes Respiratory No (HX PARALYZED DIAPHRAGM) Cardiovascular Yes (PACEMAKER) Neurological Yes (Right diaphragmatic paralysis) Stroke 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 System Sexually Transmitted Disease: No Female 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 Disorders: Denies Hysterectomy Genitourinary Yes Kidney Stones Gastrointestinal Yes Reina's Esophagus, Hemorrhoids, Hiatal Hernia Musculoskeletal Yes Back Injury Endocrine No Hypothyroidsim HEENT No Loss of Vision: Denies Hearing Impairment: Denies Cancer No Colon Psychosocial Yes PTSD, Depression Integumentary Yes Psoriasis Blood Transfusions No Social History Patient Social History Marrital Status: Employed/Student: employed Have you traveled recently?: No Alcohol Use?: Yes Family Hx Other Noncontributory to her current condition Family History: Colon cancer ROS-Cardiology Review of Systems General: No Chills, No Night Sweats; Fatigue, Malaise; No Appetite HEENT: No Head Aches, No Visual Changes, No Eye Pain, No Ear Pain, No Dysphasia, No Sinus Congestion, No Post Nasal Drip, No Sore Throat Pulmonary: Dyspnea; No Cough, No Pleuritic Chest Pain Cardiovascular: Chest Pain; No: Palpitations, Orthopnea, Paroxysmal Noc. Dyspnea, Edema, Lt Headedness Gastrointestinal: No: Nausea, Vomiting, Abdominal Pain, Diarrhea, Constipation, Melena, Hematochezia Genitourinary: No Dysuria, No Frequency, No Incontinence, No Hematuria, No Retention Musculoskeletal: No: neck pain, shoulder pain, arm pain, back pain, hand pain, leg pain, foot pain Neurological: No: Weakness, Numbness, Incoordination, Change in speech, Confusion, Seizures Home Medications & Allergies Allergies: Coded Allergies: Latex, Natural Rubber (Verified Allergy, Intermediate, Shortness of Breath, PARALIZED DIAHPHRAM, 02/17/22) Home Medication List Reviewed: Yes Exam-Cardiology Vital Signs Vital Signs Date Time Temp Pulse Resp B/P (MAP) Pulse Ox O2 Delivery O2 Flow Rate FiO2 03/11/22 11:05 94 Room Air 03/11/22 10:00 76 21 131/86 (101) 03/11/22 08:00 36.4 Exam General Appearance: Alert, Oriented X3, Cooperative, No Acute Distress HEENT: Atraumatic, PERRLA Respiratory: Clear to Auscultation, Normal Air Movement Cardiovascular: Normal S1, Normal S2, No Murmurs, Other (Tachycardia) Abdominal: Normal Bowel Sounds, Soft, No Tenderness, No Hepatosplenomegaly, No Masses Extremities: No Clubbing, No Cyanosis, No Edema, Normal Pulses, No Tenderness/Swelling Skin: No Rashes, No Breakdown, No Significant Lesion Neuro: Normal Gait, Normal Speech, Strength at 5/5 X4 Ext, Normal Tone, Sensation Intact Psych/Mental Status: Mental Status NL, Mood NL Results Labs Labs Laboratory Tests 03/10/22 14:29: White Blood Count 9.0, Red Blood Count 4.85, Hemoglobin 14.3, Hematocrit 41, Mean Corpuscular Volume 85, Mean Corpuscular Hemoglobin 30, Mean Corpuscular Hemoglobin Concent 35, Red Cell Distribution Width 13.0, Platelet Count 251, Mean Platelet Volume 10.8, Sodium Level 139, Potassium Level 3.6, Chloride Level 104, Carbon Dioxide Level 21, Anion Gap 14, Blood Urea Nitrogen 12, Creatinine 1.01, Estimat Glomerular Filtration Rate 66, BUN/Creatinine Ratio 12, Glucose Level 100, Calcium Level 9.6, Corrected Calcium 9.4, Total Bilirubin 0.9, Aspartate Amino Transf (AST/SGOT) 34, Alanine Aminotransferase (ALT/SGPT) 38, Alkaline Phosphatase 83, B-Type Natriuretic Peptide 21.2, Total Protein 7.2, Albumin 4.3 03/11/22 02:30: White Blood Count 4.6, Red Blood Count 4.31, Hemoglobin 12.6, Hematocrit 37, Mean Corpuscular Volume 86, Mean Corpuscular Hemoglobin 29, Mean Corpuscular Hemoglobin Concent 34, Red Cell Distribution Width 13.2, Platelet Count 229, Mean Platelet Volume 10.8, Sodium Level 141, Potassium Level 3.2L, Chloride Level 105, Carbon Dioxide Level 24, Anion Gap 12, Blood Urea Nitrogen 13, Creatinine 0.93, Estimat Glomerular Filtration Rate 73, BUN/Creatinine Ratio 14, Glucose Level 118H, Calcium Level 8.8, Corrected Calcium 8.9, Total Bilirubin 0.6, Aspartate Amino Transf (AST/SGOT) 101H, Alanine Aminotransferase (ALT/SGPT) 117H, Alkaline Phosphatase 111, Total Protein 6.5, Albumin 3.9, Immature Granulocyte % (Auto) 0, Neutrophils (%) (Auto) 49, Lymphocytes (%) (Auto) 37, Monocytes (%) (Auto) 10, Eosinophils (%) (Auto) 3, Basophils (%) (Auto) 1, Neutrophils # (Auto) 2.2, Lymphocytes # (Auto) 1.7, Monocytes # (Auto) 0.5, Eosinophils # (Auto) 0.1, Basophils # (Auto) 0.0, Immature Granulocyte # (Auto) 0.0, Phosphorus Level 4.3, Magnesium Level 1.9 A/P-Cardiology Admission Diagnosis Atrial flutter Tachycardia Chest pain Shortness of breath Admission Status: Inpatient Order (span 2 midnights) Reason for Inpatient Admission: Atrial flutter requiring Cardizem drip and amiodarone drip Assessment/Plan Paroxysmal atrial fibrillation/flutter Had history of ablation in the remote past, patient had a total of 4 ablation procedures last procedure was done in January 2022, it was an extensive ablation done at that time. Stable had on and off atrial fibrillation and she was seen by Dr. Ferguson, he had adjusted her pacemaker setting for better detection of the atrial fibrillation I recommended titrating the beta-lorna dose. Underwent LENORE with cardioversion in December 05, 2020 and still in sinus rhythm. C/o occasional episode of palpitations. Pacemaker sensitivity was adjusted by Dr. Ferguson. Patient was intolerant to Multaq. She was referred to for evaluation, seen by Dr. Sanon. 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 Was hospitalized for 2 weeks, recovering slowly. Still having dizziness and lightheadedness and fatigue and chest pain. EKG showing aflutter, HR 130s, patient was admitted to ICU. Has been maintained on Xarelto which was held recently, has been back on it for the past 5 days. Patient was started on Cardizem drip and amiodarone drip, plan for LENORE/Cardioversion Chest pain, shortness of breath, probably secondary to tachycardia, planning for cardioversion today. LENORE done on Aug 2021 showing normal left ventricular size, left atrium is mildly dilated, no clot or thrombus, mild mitral regurgitation Sinus node dysfunction, history of [employer] dual-chamber pacemaker, functioning normally. Had it implanted in [place], continue to monitor at this time Generalized fatigue and loss of energy. Chronic, had been since I met her. Patient requested to stop Toprol which was done on the last visit. Lipid profile done on August 26, 2021 showing total cholesterol 168, triglyceride 91, HDL 45, LDL 116. Chest pain, nonspecific etiology, patient was having recurrent chest pain underwent cardiac catheterization on 12/04/2020 showing normal coronaries with normal left ventricular size and function History of hiatal hernia, had repair surgery done at [facility], epigastric pain, loss of appetite, had CT abdomen done in the ER on 03/17/21 showing abnormal wall thickening in the region of the GE junction and prox stomach with multiple prominent enlarged superior mesenteric and paraesophageal lymph nodes most concerning for GE junction or prox gastric malignancy. Had EGD with Dr Valles Generalized fatigue and loss of energy. Hypothyroidism, followed and managed by primary care physician COPD, maintained on bronchodilator. Followed and managed by primary care physician Status post Covid 19 infection in June 2020, still complaining of some dyspnea and fatigue since that infection Nonobstructive carotid artery stenosis per carotid duplex done November 2021. Recent kidney stone, underwent cystoscopy and right ureteral stone manipulation and insertion of right double-J with Dr. Jenkins on 02/06/22. Planning for stent retrieval in near future. Hospital course: Patient was admitted to the ICU, started on Cardizem and amiodarone drip. This morning patient underwent LENORE with electrical cardioversion, tolerated procedure well Planning for discharge and follow-up in 1 week as an outpatient Final diagnosis: Paroxysmal atrial flutter Palpitation Chest pain Shortness of breath Coronary artery disease ERIKA DE LA ROSA MD Mar 11, 2022 05:51
[2022-03-11] MEDS ORDERED: KCL 20 MEQ TAB (K-DUR) PO SCH (06:00)
[2022-03-11] MEDS ORDERED: POTASSIUM CL 10MEQ/50ML IVPB 50 ML IV SCH (06:00)
[2022-03-11] MEDS ORDERED: MAGNESIUM 1 GM/100 ML IVPB 100 ML IV SCH (06:00)
[2022-03-11] MEDS ORDERED: SUMAtriptan 50 MG (IMITREX) TAB PO PRN (07:45)
[2022-03-11] MEDS ORDERED: cloNIDine 0.1 MG (CATAPRES) TAB PO PRN (07:45)
[2022-03-11] MEDS ORDERED: RT-ALBUTEROL SULF 2.5 MG/3 ML PRE-MIX VIAL IH PRN (07:45)
--- NOTE | 2022-03-11 07:46 | Cardiac Procedure Note-CS/ASA ---
Pre-Procedure Note Pre-Op Procedure Note Date of Available H&P: Mar 11, 2022 Date H&P Reviewed: Mar 11, 2022 Time H&P Reviewed: 07:46 History & Physical: H&P Reviewed, Patient Examed, No changes noted Pre-Operative Diagnosis: A flutter Conscious Sedation Pre-Proced Time 07:46 ASA Score 3 For ASA 3 and 4: Consider anesthesia and medical clearance. Also, for patients with a history of failed moderate sedation consider anesthesia. Airway Lungs Heart ASA score ASA 1: a normal healthy patient ASA 2: a patient with a mild systemic disease (mid diabetes, controlled hypertension, obesity x ASA 3: a patient with a severe systemic disease that limits activity (angina, COPD, prior Myocardial infarction) ASA 4: a patient with an incapacitating disease that is a constant threat to life (CHF, renal failure) ASA 5: a moribund patient not expected to survive 24 hrs. (ruptured aneurysm) ASA 6: a declared brain- patient whose organs are being harvested. For emergent operations, add the letter E after the classification Mallampati Classification Grade 3 Sedation Plan Analgesia, Amnesia, Plan communicated to team members, Discussed options with patient/fam, Discussed risks with patient/fam The patient is an appropriate candidate to undergo the planned procedure, sedation, and anesthesia. The patient immediately re-assessed prior to indication. ERIKA DE LA ROSA MD Mar 11, 2022 07:46
[2022-03-11] MEDS ORDERED: proPOfol 200 MG/20 ML (DIPRIVAN) VIAL IV ONE (07:57)
[2022-03-11] MEDS ORDERED: LACTATED RINGERS 1,000 ML IV ONE (08:02)
[2022-03-11] MEDS ORDERED: LIDOCAINE 2% VISCOUS 15 ML UDC ONE (08:04)
[2022-03-11] MEDS ORDERED: UMECLIDINIUM BROMIDE (INCRUSE ELLIPTA) 7'S IH PRN (08:15)
[2022-03-11] MEDS ORDERED: AMIODARONE 200 MG (CORDARONE) TAB PO NR (08:30)
[2022-03-11] MEDS ORDERED: LIDOCAINE 2% VISCOUS 15 ML UDC PO ONE (08:45)
--- NOTE | 2022-03-11 08:51 | Cardioversion ---
Cardioversion PROCEDURE PHYSICIAN: Erika Ruvalcaba DATE OF PROCEDURE: 03/11/22 DIRECT EXTERNAL ELECTRICAL CARDIOVERSION: Indications: Atrial flutter Preoperative diagnoses: Atrial flutter Postoperative diagnosis: Sinus rhythm, Successful Electrical Cardioversion Anesthesia: By Anesthesia services Complications: None Specimen: None Contrast: 0 Flouroscopy: none Procedure Details: The patient was brought the laboratory scientist after informed consent was taken, all the risks and complications were explained including the risk of stroke. Electrical cardioversion was carried out with anesthesia support with propofol. 200 joules of synchronized shock was delivered through external patches which promptly restored sinus rhythm. The patient tolerated the procedure well. Conclusions: Successful electrical cardioversion and terminating atrial flutter with no complications ERIKA RUVALCABA MD Mar 11, 2022 08:51
--- NOTE | 2022-03-11 08:51 | Anesthesia-General Post-Op ---
MAC Patient Condition Mental Status/LOC: Same as Preop Cardiovascular: Satisfactory Nausea/Vomiting: Absent Respiratory: Satisfactory Pain: Controlled Complications: Absent Post Op Complications Complications None Follow Up Care/Instructions Patient Instructions None needed. Anesthesiology Discharge Order Discharge Order Patient is doing well, no complaints, stable vital signs, no apparent adverse anesthesia problems. No complications reported per nursing. OSCAR DELONG CRNA Mar 11, 2022 08:51
[2022-03-11] MEDS ORDERED: PANTOPRAZOLE 40 MG (PROTONIX) TAB PO SCH ×2 (09:00→21:00)
[2022-03-11] MEDS ORDERED: dilTIAZem120 MG (CARDIZEM CD) CAP PO SCH (09:00)
[2022-03-11] MEDS ORDERED: FUROSEMIDE 40 MG (LASIX) TAB PO SCH (09:00)
[2022-03-11] MEDS ORDERED: AMIO200T65 PO (11:43)
--- NOTE | 2022-03-11 11:44 | Discharge Inst-Post CATH ---
Discharge Inst-CATH/EP Problems Reviewed?: Yes Post Cardiac Cath/EP D/C Inst Follow Up/Plan Appointment with Dr. Ruvalcaba's office next week <b>CARDIAC CATH/EP PROCEDURE DISCHARGE INSTRUCTIONS</b> ACTIVITY * Go Home directly and rest. * Limit activity of the leg (or wrist if it was used) for 7 days including aerobics, swimming, jogging, bicycling, etc. * Restrict stair-climbing for 7 days if possible, if not, climb up with your non-cath leg, then bring together on the same step. * Avoid lifting, pushing, pulling or excessive movement of the affected extremity for 7 days. * Customary sexual activity may be resumed after 2 days-use caution not to use a position that strains or causes pain to the affected extremity. * No driving for 24 hours. * NO SMOKING. * Avoid straining for bowel movements for 7 days. * Gentle walking on level ground is allowed. * Returning to work will depend on the type of procedure and the results. Your doctor will discuss this with you. CALL YOUR DOCTOR FOR ANY OF THE FOLLOWING: *If bleeding from the puncture site occurs- Apply gentle pressure to site with clean cloth and call your doctor or EMS. * If a knot or lump forms under the skin, increases in size, or causes pain. * If bruising appears to be worsening or moving further down your leg instead of disappearing. * Temperature above 101 F. CARE OF YOUR GROIN INCISION; * Bruising or purple discoloration of the skin near the puncture site is common. * You may shower only, no bathtub bathing for 5 days. Be careful to avoid slipping as your leg may feel stiff. * If a closure device was used on your femoral artery, please see the attached guide regarding care of the device and your leg. * Leave dressing on FOR 24 hours. CARE OF YOUR WRIST INCISION; * Bruising or purple discoloration of the skin near the puncture site is common. * You may shower. * DO NOT submerge wrist. * Leave dressing on FOR 24 hours. ERIKA RUVALCABA MD Mar 11, 2022 11:44
[2022-03-11] MEDS ORDERED: OMEGA 3 (FISH OIL) 1000 MG CAP PO SCH (21:00)
== END 2022-03-11 13:22 | disposition home or self-care (01) ==
LOC: ICU 14:04 → UNDOADMOB 14:04 → ICU 14:17 → UNDODISOB 03-11 13:00
PROVIDERS: ADMIT Internal Medicine Cardiovascular Disease; ATTEND Internal Medicine Cardiovascular Disease
DX: I48.92 Unspecified atrial flutter (principal); I48.0 Paroxysmal atrial fibrillation; Z79.01 Long term (current) use of anticoagulants; I49.5 Sick sinus syndrome; K21.9 Gastro-esophageal reflux disease without esophagitis; E03.9 Hypothyroidism, unspecified; J44.9 Chronic obstructive pulmonary disease, unspecified; I65.29 Occlusion and stenosis of unspecified carotid artery; Z86.16 Personal history of COVID-19; I25.10 Atherosclerotic heart disease of native coronary artery without angina pectoris; Z79.899 Other long term (current) drug therapy
CPT/HCPCS: 36410; 76937; 80053 ×2; 83735; 83880; 84100; 85025; 85027; 87081; 93005 ×2; 93312; 93320; 93325; 94640; 96366 ×2; 96374; 96375; 96376; C1751; G0378; G0379; 36415

== ENCOUNTER → 2022-03-12 | Outpatient (CLI) | payer BC ==
[~2022-03-12] MED LIST changes: +ALBU2.5V4 NEB; +SUMA50TA2 PO; +VIT C PO; +VIT D PO; +VITA100033 PO
--- NOTE | 2022-03-12 12:25 | Diagnostic Imaging Report ---
INDICATION: Status post ESWL. COMPARISON: 03/03/2022 FINDINGS: 2 frontal radiographic views of the abdomen were obtained. Right-sided double-J ureteral stent has since been removed. Extraosseous calcifications are again identified projecting over the pelvis. These appear stable. No unexpected radiopaque foreign bodies are seen. Small bowel loops are nondistended. There is no large collection of free intraperitoneal air. IMPRESSION: 1. Interval removal of right-sided double-J ureteral stent. 2. Stable pelvic calcifications. 3. Nonobstructed small bowel gas pattern Dictated by: Dictated on workstation # [id number]
== END ==
LOC: RAD 11:50
PROVIDERS: ATTEND Urology
DX: N20.0 Calculus of kidney (principal); Z96.0 Presence of urogenital implants
CPT/HCPCS: 74018

== ENCOUNTER → 2022-05-30 | Day surgery (SDC) | payer BC ==
[~2022-05-30] VITALS: Ht 162.6 cm; Wt 89.0 kg
[2022-05-30] VITALS (9 sets, daily range): BP systolic 123–154; BP diastolic 81–109
[~2022-05-30] MED LIST changes: +AMIODARONE FOR BOLUS 150 MG in NS (IVPB) 100 ML IV NR; +NS IV 1000 ML 1,000 ML IV SCH; +NS IV 1000 ML 1,000 ML ONE; +proPOfol 200 MG/20 ML (DIPRIVAN) VIAL IV ONE
[2022-05-30 09:38] LABS: CALCIUM 9.2 MG/DL (8.5-10.1); CREATININE SERUM 0.86 MG/DL (0.60-1.30); POTASSIUM 3.9 MMOL/L (3.6-5.0)
--- NOTE | 2022-05-30 09:47 | Cardiac Procedure Note-CS/ASA ---
Pre-Procedure Note Pre-Op Procedure Note Date of Available H&P: May 27, 2022 Date H&P Reviewed: May 30, 2022 Time H&P Reviewed: 09:00 History & Physical: H&P Reviewed, Patient Examed, No changes noted Pre-Operative Diagnosis: A flutter Conscious Sedation Pre-Proced Time 09:00 ASA Score 3 For ASA 3 and 4: Consider anesthesia and medical clearance. Also, for patients with a history of failed moderate sedation consider anesthesia. Airway Lungs Heart ASA score ASA 1: a normal healthy patient ASA 2: a patient with a mild systemic disease (mid diabetes, controlled hypertension, obesity ASA 3: a patient with a severe systemic disease that limits activity (angina, COPD, prior Myocardial infarction) ASA 4: a patient with an incapacitating disease that is a constant threat to life (CHF, renal failure) ASA 5: a moribund patient not expected to survive 24 hrs. (ruptured aneurysm) ASA 6: a declared brain- patient whose organs are being harvested. For emergent operations, add the letter E after the classification Mallampati Classification Grade 3 Sedation Plan Analgesia, Amnesia, Plan communicated to team members, Discussed options with patient/fam, Discussed risks with patient/fam The patient is an appropriate candidate to undergo the planned procedure, sedation, and anesthesia. The patient immediately re-assessed prior to indication. ERIKA DE LA ROSA MD May 30, 2022 09:47
--- NOTE | 2022-05-30 09:49 | Cardioversion ---
Cardioversion PROCEDURE PHYSICIAN: Erika Ruvalcaba DATE OF PROCEDURE: 05/30/22 DIRECT EXTERNAL ELECTRICAL CARDIOVERSION: Indications: Atrial Fibrillation with rapid ventricular rate Preoperative diagnoses: Atrial Fibrillation with rapid ventricular rate Postoperative diagnosis: Sinus rhythm, Successful Electrical Cardioversion History: 57-year-old lady with history of paroxysmal atrial fibrillation/flutter, failed ablation in the past, has underlying sinus node dysfunction. Had multiple cardioversion, has been maintaining atrial flutter with rapid ventricular response. We discussed the management plan and planning for cardioversion and I will reload her with amiodarone. Anesthesia: By Anesthesia services Complications: None Specimen: None Contrast: 0 Flouroscopy: none Procedure Details: The patient was brought the cath laboratory technician after informed consent was taken, all the risks and complications were explained including the risk of stroke. Electrical cardioversion was carried out with anesthesia support with propofol. 200 joules of synchronized shock was delivered through external patches which promptly restored sinus rhythm. The patient tolerated the procedure well. Conclusions: Successful electrical cardioversion and terminating atrial flutter Final Diagnosis: Paroxysmal atrial flutter Palpitation Sinus node dysfunction Hypertension ERIKA RUVALCABA MD May 30, 2022 09:48
--- NOTE | 2022-05-30 10:05 | Discharge Inst-Post CATH ---
Discharge Inst-CATH/EP Problems Reviewed?: Yes Post Cardiac Cath/EP D/C Inst Follow Up/Plan Appointment with Dr. Ruvalcaba's office in 2 to 4 weeks <b>CARDIAC CATH/EP PROCEDURE DISCHARGE INSTRUCTIONS</b> ACTIVITY * Go Home directly and rest. * Limit activity of the leg (or wrist if it was used) for 7 days including aer obics, swimming, jogging, bicycling, etc. * Restrict stair-climbing for 7 days if possible, if not, climb up with your non-cath leg, then bring together on the same step. * Avoid lifting, pushing, pulling or excessive movement of the affected extremi ty for 7 days. * Customary sexual activity may be resumed after 2 days-use caution not to use a position that strains or causes pain to the affected extremity. * No driving for 24 hours. * NO SMOKING. * Avoid straining for bowel movements for 7 days. * Gentle walking on level ground is allowed. * Returning to work will depend on the type of procedure and the results. Your doctor will discuss this with you. CALL YOUR DOCTOR FOR ANY OF THE FOLLOWING: *If bleeding from the puncture site occurs- Apply gentle pressure to site with clean cloth and call your doctor or EMS. * If a knot or lump forms under the skin, increases in size, or causes pain. * If bruising appears to be worsening or moving further down your leg instead of disappearing. * Temperature above 101 F. CARE OF YOUR GROIN INCISION; * Bruising or purple discoloration of the skin near the puncture site is common. * You may shower only, no bathtub bathing for 5 days. Be careful to avoid slipping as your leg may feel stiff. * If a closure device was used on your femoral artery, please see the attached guide regarding care of the device and your leg. * Leave dressing on FOR 24 hours. CARE OF YOUR WRIST INCISION; * Bruising or purple discoloration of the skin near the puncture site is common. * You may shower. * DO NOT submerge wrist. * Leave dressing on FOR 24 hours. ERIKA RUVALCABA MD May 30, 2022 10:05
--- NOTE | 2022-05-30 10:26 | Anesthesia-General Post-Op ---
MAC Patient Condition Mental Status/LOC: Same as Preop Cardiovascular: Satisfactory Nausea/Vomiting: Absent Respiratory: Satisfactory Pain: Controlled Complications: Absent Post Op Complications Complications None Follow Up Care/Instructions Patient Instructions None needed. Anesthesiology Discharge Order Discharge Order Patient is doing well, no complaints, stable vital signs, no apparent adverse anesthesia problems. No complications reported per nursing. HUMA MAGALLANES CRNA May 30, 2022 10:26
== END | disposition home or self-care (01) ==
LOC: CATH 08:38
PROVIDERS: ATTEND Internal Medicine Cardiovascular Disease
DX: I48.0 Paroxysmal atrial fibrillation (principal); R00.2 Palpitations; I49.5 Sick sinus syndrome; I10 Essential (primary) hypertension; E66.9 Obesity, unspecified; Z68.34 Body mass index [BMI] 34.0-34.9, adult; Z95.0 Presence of cardiac pacemaker; E03.9 Hypothyroidism, unspecified; J44.9 Chronic obstructive pulmonary disease, unspecified; Z86.16 Personal history of COVID-19; E78.2 Mixed hyperlipidemia; I65.23 Occlusion and stenosis of bilateral carotid arteries; Z79.01 Long term (current) use of anticoagulants
CPT/HCPCS: 80048; 87081; 92960; 93005; C8929; 36415; 93306

== ENCOUNTER 2022-10-02 07:59 | Emergency (ER) | payer BC ==
[~2022-10-02] VITALS: Ht 162 cm; Wt 86.0 kg
[~2022-10-02 07:59] MED LIST changes: -AMIODARONE FOR BOLUS 150 MG in NS (IVPB) 100 ML IV NR; -NS IV 1000 ML 1,000 ML IV SCH; -NS IV 1000 ML 1,000 ML ONE; -proPOfol 200 MG/20 ML (DIPRIVAN) VIAL IV ONE
--- NOTE | 2022-10-02 09:03 | Diagnostic Imaging Report ---
History: Right rib and back pain COMPARISON: 01/18/2022, 03/07/2022 FINDINGS: There is atelectasis/scarring in the right midlung which is unchanged. No new consolidation is seen. There is elevation of the right hemidiaphragm, otherwise lung volumes normal. There is no pleural effusion or pneumothorax. The left pacemaker leads are stable. No fractures are seen. IMPRESSION: 1. No acute pulmonary abnormality. Dictated by: Dictated on workstation # [id number]
--- NOTE | 2022-10-02 09:17 | ED General ---
General Chief Complaint: Abdominal/GI Problems Stated Complaint: RIB PAIN | Nursing Triage Note: PT AMB TO RM 6 PT CO OF UPPER ABD PAIN THAT GOES TO BACK, PT STATES WHEN EATS MAKES SOA. PT DENIES N/V/D. RATES PAIN 01/19. PT STATES HAS SOME DIZZINESS AT TIMES. STATES STARTED ON THURSDAY. PT STATES HAS PARALIZED DIAPHRAM FROM SURG APPROX 1 YR AGO. Source of Information: Patient, Old Records Exam Limitations: No Limitations (CINDA JAMES) History of Present Illness Date Seen by Provider: Oct 02, 2022 Time Seen by Provider: 07:08 Initial Comments Mrs. Rondon is a 57yo F with PMH of A-fib with ablation and right diaphragmatic hemiparesis , GERD with hiatal hernia repair and complete hysterectomy who presents to the ED today with 4 day hx of increasing right sided rib pain and SOA which does not improve or worsen with eating, BM or micturition. She states the pain has greatly increased over the last 24hrs promting her visit to the ED today and points to her right lower thorax around rib 6&7 stating that pain radiates to her back as well. Denies N/V/F/C/D, last BM was this am, loose and non-bloody, denies dysuria or hematuria. Timing/Duration: 24 Hours (worsening), 3-4 Days, Changing Over Time, Getting Worse Severity: Moderate Associated Systoms: Chest Pain (Right sided); No Cough, No Fever/Chills; Headaches; No Nausea/Vomiting, No Rash; Shortness of Air, Other (feeling dizzy, sitting and standing) (CINDA JAMES) Allergies and Home Medications Allergies Coded Allergies: Latex, Natural Rubber (Verified Allergy, Intermediate, Shortness of Breath, PARALIZED DIAHPHRAM, 02/17/22) Patient Home Medication List Home Medication List Reviewed: Yes (ANDREE CHACKO MD) Albuterol Sulfate (Albuterol Sulfate) 2.5 Mg/3 Ml (0.083 %) Vial.neb, 3 ML NEB Q4H PRN for SHORTNESS OF BREATH, (Reported) Entered as Reported by: LEOBARDO CARLIN on 03/10/22 1558 Amiodarone HCl (Amiodarone HCl) 200 Mg Tablet, 200 MG PO UD Prescribed by: ERIKA DE LA ROSA on 05/30/22 1034 Clonidine HCl (Clonidine HCl) 0.1 Mg Tablet, 0.1 MG PO BID PRN for BP OVER 140/90, (Reported) Entered as Reported by: LEOBARDO CARLIN on 08/26/21 1043 Diazepam (Diazepam) 5 Mg Tablet, 5 MG PO BID PRN for ANXIETY, (Reported) Entered as Reported by: LEOBARDO CARLIN on 08/26/21 1043 Diltiazem HCl (Diltiazem 24Hr ER) 120 Mg Cap.er.24h, 120 MG PO HS, (Reported) Entered as Reported by: LEOBARDO CARLIN on 03/10/22 155 Fish Oil/Dha/Epa (Fish Oil 1,200 mg Fish Oil) 1,200 Mg-144 Mg-216 Mg Capsule, 1 EACH PO HS, (Reported) Entered as Reported by: LEOBARDO CARLIN on 03/10/22 155 Furosemide (Furosemide) 40 Mg Tablet, 40 MG PO DAILY, (Reported) Entered as Reported by: LEOBARDO CARLIN on 03/10/22 155 Levocetirizine Dihydrochloride (Levocetirizine Dihydrochloride) 5 Mg Tablet, 5 MG PO HS, (Reported) Entered as Reported by: KERLINE JORGENSEN on 05/30/22 1012 Meclizine HCl (Meclizine HCl) 25 Mg Tablet, 25 MG PO Q6H PRN for dizziness Prescribed by: ANDREE CHACKO on 10/02/22 1045 Pantoprazole Sodium (Pantoprazole Sodium) 40 Mg Tablet.dr, 40 MG PO HS, (Reported) Entered as Reported by: MYRTLE VANN on 02/04/22 1240 Rivaroxaban (Xarelto) 20 Mg Tablet, 20 MG PO 1900, (Reported) Entered as Reported by: LEOBARDO CARLIN on 03/10/22 155 Sumatriptan Succinate (Sumatriptan Succinate) 50 Mg Tablet, 50 MG PO UD PRN for MIGRAINE, (Reported) Entered as Reported by: LEOBARDO CARLIN on 03/10/22 155 Tiotropium [place] (Spiriva Respimat 1.25MCG/ACTUATION) 1.25 Mcg/Actuation Mist.inhal, 2 PUFF IH DAILY PRN for SHORTNESS OF BREATH, (Reported) Entered as Reported by: LEOBARDO CARLIN on 03/10/22 1558 Tramadol HCl (Tramadol HCl) 50 Mg Tablet, 50 MG PO Q6H PRN for PAIN Prescribed by: ANDREE CHACKO on 10/02/22 1045 Vitamin E Mixed (Vitamin E) 1,000 Unit Capsule, 1,000 UNIT PO HS, (Reported) Entered as Reported by: LEOBARDO CARLIN on 03/10/22 1558 [Vit C/Vit D/Zinc] , 1 EA PO HS, (Reported) Entered as Reported by: LEOBARDO CARLIN on 03/10/221557 Review of Systems Review of Systems Constitutional: No chills, No diaphoresis; dizziness; No fever, No malaise EENTM: No ear pain, No mouth pain, No throat pain Respiratory: No cough; short of breath (feels like it is hard to take a full breath) Cardiovascular: chest pain (right sided), Hx of Intervention; No palpitations Gastrointestinal: No abdominal pain, No constipation, No diarrhea, No hematemesis, No heartburn, No melena, No nausea, No vomiting Genitourinary: No dysuria, No hematuria Musculoskeletal: back pain; No joint pain, No neck pain Skin: No change in color, No pruritus, No rash Psychiatric/Neurological: Headache; Denies Paresthesia, Denies Tingling Latex allergy (CINDA JAMES) Past Kpzwrvu-Gfcyrm-Zcgafs Hx Patient Social History Tobacco Use?: No Substance use?: No Alcohol Use?: Yes Alcohol Frequency: Rarely Pt feels they are or have been: No (CINDA JAMES) Immunizations Up To Date Tetanus Booster (TDap): Less than 5yrs PED Vaccines UTD: Yes Influenza Vaccine Up-to-Date: No; Not Current First/Initial COVID19 Vaccinat: NONE Second COVID19 Vaccination Arley: NONE Third COVID19 Vaccination Date: NONE (CINDA JAMES) Seasonal Allergies Seasonal Allergies: Yes (CINDA JAMES) Past Medical History Surgery/Hospitalization HX: pacemaker, CHF, A-fib, Cardiac cath, 4 cardiac ablasions, hysterectomy, appendectomy, tonsillectomy, titi, hiatal hernia, ureteral stent, d&c,BLADDER SLINGafib, chf, copd, renal stones, htn, high cholesterol, liver disease,barrettsesophagus, hypothryoidism Surgeries: Yes Abdominal, Bladder Surgery, Gallbladder, Pacemaker, Renal, Tonsillectomy Respiratory: No (HX PARALYZED DIAPHRAGM) Pneumonia, COPD Currently Using CPAP: No Currently Using BIPAP: No Cardiac: Yes (PACEMAKER) Atrial Fibrillation, Hypertension Neurological: Yes (Right diaphragmatic paralysis) Stroke 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 Sexually Transmitted Disease: No Genitourinary: Yes Kidney Stones Gastrointestinal: Yes Gastroesophageal Reflux, Reina's Esophagus, Hemorrhoids, Hiatal Hernia Musculoskeletal: Yes Back Injury Endocrine: No Hypothyroidsim HEENT: No Loss of Vision: Denies Hearing Impairment: Denies Cancer: No Colon Psychosocial: Yes PTSD, Depression Integumentary: Yes Psoriasis Blood Disorders: No (CINDA JAMES) Family Medical History Colon cancer Noncontributory (CINDA JAMES) Physical Exam Vital Signs Vital Signs - First Documented 10/02/22 08:10 Temp 36.3 Pulse 65 Resp 18 B/P (MAP) 136/96 (109) Pulse Ox 96 (ANDREE CHACKO MD) Vital Signs Capillary Refill : Less Than 3 Seconds (CINDA JAMES) Height, Weight, BMI Height: '" Weight: lbs. oz. kg; 32.00 BMI Method: General Appearance: No Apparent Distress, WD/WN Eyes: Bilateral Eye Normal Inspection, Bilateral Eye PERRL, Bilateral Eye EOMI HEENT: PERRL/EOMI, TMs Normal, Normal ENT Inspection, Pharynx Normal Neck: Full Range of Motion, Non Tender, Supple Respiratory: Lungs Clear, Normal Breath Sounds, No Accessory Muscle Use, No Respiratory Distress Cardiovascular: Regular Rate, Rhythm, No Edema, No Murmur, Normal Peripheral Pulses Gastrointestinal: No Organomegaly, Non Tender, Soft Back: No CVA Tenderness, Muscle Spasm (Hyptonicity in paravertebral muscles), Vertebral Tenderness (Para vertebrl, Tender to palpation - thoracic area) Extremity: No Pedal Edema (CINDA JAMES) Progress/Results/Core Measures Suspected Sepsis SIRS Temperature: Pulse: 65 Respiratory Rate: 18 Blood Pressure 136 /96 Mean: 109 (CINDA JAMES) Results/Orders Lab Results Laboratory Tests Test 10/02/22 09:33 Range/Units Urine Color YELLOW Urine Clarity CLEAR Urine pH 7.5 5-9 Urine Specific [place] 1.010 L 1.016-1.022 Urine Protein NEGATIVE NEGATIVE Urine Glucose (UA) NEGATIVE NEGATIVE Urine Ketones NEGATIVE NEGATIVE Urine Nitrite NEGATIVE NEGATIVE Urine Bilirubin NEGATIVE NEGATIVE Urine Urobilinogen 0.2 < = 1.0 MG/DL Urine Leukocyte Esterase NEGATIVE NEGATIVE Urine RBC (Auto) NEGATIVE NEGATIVE Urine RBC 2-5 H /HPF Urine WBC RARE /HPF Urine Crystals PRESENT H /LPF Urine Amorphous Sediment MOD GENIE PHOSPHATE H /LPF Urine Bacteria FEW H /HPF Urine Casts PRESENT /LPF Urine Hyaline Casts 0-2 H /LPF Urine Mucus SMALL H /LPF Urine Culture Indicated YES (ANDREE CHACKO MD) My Orders Orders - ANDREE CHACKO MD Chest Pa/Lat (2 View) (10/02/22 08:37) Ua Culture If Indicated (10/02/22 08:37) Urine Culture (10/02/22 09:33) (ANDREE CHACKO MD) Vital Signs/I&O 10/02/22 10/02/22 08:10 10:57 Temp 36.3 Pulse 65 65 Resp 18 18 B/P (MAP) 136/96 (109) 136/96 Pulse Ox 96 96 (ANDREE CHACKO MD) Vital Signs/I&O Capillary Refill : Less Than 3 Seconds (CINDA JAMES) Blood Pressure Mean: 109 Progress Note : Time: 10:47 Progress Note 57-year-old female to the emergency department chief complaint right-sided chest/rib pain and multiple other somatic complaints. Patient states that her right-sided pain is chronic but in the last 4 to 5 days has worsened. She denies shortness of breath or cough. No febrile illnesses reported no URI symptoms. No nausea, vomiting or diarrhea. She also complains of feeling lightheaded and dizzy with both sitting and standing. No dysuria, urgency or frequency. No bloody urine or bloody stools. She has not taken any medications for the pain. She has not contacted her primary care physician for this complaint. Physical exam pertinent for right-sided nystagmus that does not fatigue. Normal neurologic exam otherwise. Tenderness to palpation over the right lower chest wall radiating around the right flank to the mid back. No rashes. No erythema. No swelling. Lungs are clear. Respirations are even and unlabored. Heart is regular. Patient is not hypoxic. Patient is not febrile Differential diagnosis based on history and physical, pneumonia, pneumothorax, musculoskeletal chest wall pain, pleurisy; vertigo. Evaluation today includes physical exam, two-view chest x-ray, urinalysis. Labs have been reviewed, urinalysis does show very minimal microscopic hematuria, mild bacteria. As the patient is asymptomatic will allow this to culture and not prescribe antibiotics at this time. Chest x-ray shows persistent elevation of the right hemidiaphragm without effusion or infiltrate or other acute pathology. Findings have been communicated to the patient. Supportive care is recommended. No clinical or objective findings to warrant further testing, consideration for further laboratory studies however history and physical do not support the need. Patient is not vomiting, not febrile. Abdomen exam is benign which supports no additional lab studies. Suspect this is an exacerbation of her chronic pain. She also mentions problems with memory which has been ongoing. Concerns for shortness of breath after eating at night. She is on pantoprazole 40 mg. Patient states that she is compliant with daily medications. Recommended close follow-up with her primary care and return precautions provided. (ANDREE CHACKO MD) Diagnostic Imaging Diagonstic Imaging: Xray Plain Films/CT/US/NM/MRI: chest Comments [facility]. [place], [place] NAME: OLESYA RONDON [facility] REC#: [id number] PT STATUS: REG ER : 1965 PHYSICIAN: ANDREE CHACKO MD ADMIT DATE: 10/02/22/ER Draft Date of Exam:10/02/22 CHEST PA/LAT (2 VIEW) History: Right rib and back pain COMPARISON: 01/18/2022, 03/07/2022 FINDINGS: There is atelectasis/scarring in the right midlung which is unchanged. No new consolidation is seen. There is elevation of the right hemidiaphragm, otherwise lung volumes normal. There is no pleural effusion or pneumothorax. The left pacemaker leads are stable. No fractures are seen. IMPRESSION: 1. No acute pulmonary abnormality. Dictated on workstation # [id number] Dict: 10/02/22 0900 Trans: 10/02/22 0903 [facility] [id number] Interpreted by: JAKE POPE MD Electronically signed by: (ANDREE CHACKO MD) Departure Impression Primary Impression: Chest wall pain Additional Impression: Dizziness Disposition: 01 HOME, SELF-CARE Condition: Stable Departure-Patient Inst. Decision time for Depature: 10:43 (ANDREE CHACKO MD) Referrals: JIMY BENNETT MD (PCP/Family) Primary Care Physician Patient Instructions: Chest Pain That Is Not Caused by the Heart (DC), Dizziness, Adult ED Add. Discharge Instructions: I have sent a prescription for some tramadol to your local pharmacy. You can take 1 every 6 hours as needed for severe pain. You can also try pbzf-lmi-ajzfjiq lidocaine patches or muscle rubs such as Biofreeze to the sore area. If you develop fever or productive cough or any other worsening, concerning symptoms please return to the emergency room for reevaluation. I believe the dizzy spells you are having may be related to vertigo. Meclizine has been prescribed. You can take 1 every 6 hours as needed for dizziness. Please call your primary care physician's office today and see if you can get in for a sooner appointment. Scripts Tramadol HCl (Tramadol HCl) 50 Mg Tablet 50 MG PO Q6H PRN for PAIN, #10 TAB 0 Refills Prov: ANDREE CHACKO MD 10/02/22 Meclizine HCl (Meclizine HCl) 25 Mg Tablet 25 MG PO Q6H PRN for dizziness, #20 TAB Prov: ANDREE CHACKO MD 10/02/22 Verification and Attestation of Medical Student E/M Service A medical student performed and documented this service in my presence. I reviewed and verified all information documented by the medical student and made modifications to such information, when appropriate. I personally performed the physical exam and medical decision making. Andree Chacko Oct 02, 2022,10:43 (ANDREE CHACKO MD) CINDA JAMES Oct 02, 2022 09:17 ANDREE CHACKO MD Oct 02, 2022 10:51
[2022-10-02 09:50] LABS: BILIRUBIN,URINE NEGATIVE (NEGATIVE); CLARITY,URINE CLEAR; COLOR,URINE YELLOW; GLUCOSE, URINE (UA) NEGATIVE (NEGATIVE); KETONES,URINE NEGATIVE (NEGATIVE); LEUKOCYTE ESTERASE ,URINE NEGATIVE (NEGATIVE); NITRITE,URINE NEGATIVE (NEGATIVE); PH,URINE 7.5 (5-9); PROTEIN,URINE NEGATIVE (NEGATIVE)
[2022-10-02 10:23] LABS: AMORPHOUS SEDIMENT,UR MOD AMOR PHOSPHATE /LPF; BACTERIA,URINE FEW /HPF; HYALINE CASTS, URINE 0-2 /LPF; WBC,URINE RARE /HPF
[2022-10-02] MEDS ORDERED: TRM50T PO (10:45)
[2022-10-02] MEDS ORDERED: MECL-149 PO (10:45)
[2022-10-02 10:57] VITALS: BP 136/96
== END 2022-10-02 10:57 | disposition home or self-care (01) ==
LOC: EDUNIT# 07:59 → ER 08:01
DX: R07.89 Other chest pain (principal); R42 Dizziness and giddiness; R31.29 Other microscopic hematuria; R82.71 Bacteriuria; Z86.79 Personal history of other diseases of the circulatory system; Z95.0 Presence of cardiac pacemaker; Z98.61 Coronary angioplasty status; Z91.040 Latex allergy status; Z28.310 Unvaccinated for COVID-19
CPT/HCPCS: 71046; 81000; 87077; 87088

== ENCOUNTER 2022-10-11 07:31 | Emergency (ER) | payer BC ==
[~2022-10-11] VITALS: Ht 162 cm; Wt 85.0 kg
[~2022-10-11 07:31] MED LIST changes: +MECL-149 PO; +TRM50T PO
--- NOTE | 2022-10-11 07:57 | ED Cardiac General ---
History of Present Illness General Chief Complaint: Cardiac/General Problems Stated Complaint: RAPID HEART RATE - LIGHT HEADED Nursing Triage Note: PT AMB TO RM 5 PT CO OF ELEVATED HR, SL DIZZINESS. PT MOUTH AND TONGUE VERY DRY, PT STATES HAD TO HAVE DENTAL SURG ON THURSDAY. PT STATES WAS OFF BLOOD THINNER AND WENT BACK ON BLOOD THINNER THURSDAY. PT STATES HR 114 AT HOME. Source: patient Exam Limitations: no limitations History of Present Illness Date Seen by Provider: Oct 11, 2022 Time Seen by Provider: 07:43 Initial Comments This 57-year-old woman presents to the emergency room with complaints of rapid heart rate and palpitations that started last night. She reports her heart rate last night was 104 and was 80 when she left the house this morning. She felt lightheaded, weak, tired, and dizzy last night. She has history of paroxysmal atrial fibrillation. She is normally in sinus rhythm. She had ablation a year ago and had a cardioversion performed by Dr. Ruvalcaba in May. She had oral surgery on Thursday, so she was off of her anticoagulant and other medications briefly. Mucous membranes appear dry and she reports not drinking well over the last day or so. Heart rate is presently 111. She appears to be in atrial flutter on the monitor and on her EKG. She presently takes clonidine 0.1 mg twice daily and diltiazem 24-hour ER 120 mg each evening. Her last dose of diltiazem was last night. Patient has paralysis of the hemidiaphragm. 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 Allergies and Home Medications Allergies Coded Allergies: Latex, Natural Rubber (Verified Allergy, Intermediate, Shortness of Breath, PARALIZED DIAHPHRAM, 02/17/22) Patient Home Medication List Home Medication List Reviewed: Yes Albuterol Sulfate (Albuterol Sulfate) 2.5 Mg/3 Ml (0.083 %) Vial.neb, 3 ML NEB Q4H PRN for SHORTNESS OF BREATH, (Reported) Entered as Reported by: LEOBARDO CARLIN on 03/10/22 6328 Amiodarone HCl (Amiodarone HCl) 200 Mg Tablet, 200 MG PO UD Prescribed by: ERIKA RUVALCABA on 05/30/22 1034 Clonidine HCl (Clonidine HCl) 0.1 Mg Tablet, 0.1 MG PO BID PRN for BP OVER 140/90, (Reported) Entered as Reported by: LEOBARDO CARLIN on 08/26/21 1043 Diazepam (Diazepam) 5 Mg Tablet, 5 MG PO BID PRN for ANXIETY, (Reported) Entered as Reported by: LEOBARDO CARLIN on 08/26/21 104 Diltiazem HCl (Diltiazem 24Hr ER) 120 Mg Cap.er.24h, 120 MG PO HS, (Reported) Entered as Reported by: LEOBARDO CARLIN on 03/10/22 155 Fish Oil/Dha/Epa (Fish Oil 1,200 mg Fish Oil) 1,200 Mg-144 Mg-216 Mg Capsule, 1 EACH PO HS, (Reported) Entered as Reported by: LEOBARDO CARLIN on 03/10/22 155 Furosemide (Furosemide) 40 Mg Tablet, 40 MG PO DAILY, (Reported) Entered as Reported by: LEOBARDO CARLIN on 03/10/22 155 Levocetirizine Dihydrochloride (Levocetirizine Dihydrochloride) 5 Mg Tablet, 5 MG PO HS, (Reported) Entered as Reported by: KERLINE JORGENSEN on 05/30/22 1012 Meclizine HCl (Meclizine HCl) 25 Mg Tablet, 25 MG PO Q6H PRN for dizziness Prescribed by: ANDREE BUTT on 10/02/22 1045 Pantoprazole Sodium (Pantoprazole Sodium) 40 Mg Tablet.dr, 40 MG PO HS, (Reported) Entered as Reported by: MYRTLE VANN on 02/04/22 1240 Rivaroxaban (Xarelto) 20 Mg Tablet, 20 MG PO 1900, (Reported) Entered as Reported by: LEOBARDO CARLIN on 03/10/22 155 Sumatriptan Succinate (Sumatriptan Succinate) 50 Mg Tablet, 50 MG PO UD PRN for MIGRAINE, (Reported) Entered as Reported by: LEOBARDO CARLIN on 03/10/22 155 Tiotropium [place] (Spiriva Respimat 1.25MCG/ACTUATION) 1.25 Mcg/Actuation Mist.inhal, 2 PUFF IH DAILY PRN for SHORTNESS OF BREATH, (Reported) Entered as Reported by: LEOBARDO CARLIN on 03/10/22 155 Tramadol HCl (Tramadol HCl) 50 Mg Tablet, 50 MG PO Q6H PRN for PAIN Prescribed by: ANDREE BUTT on 10/02/22 1045 Vitamin E Mixed (Vitamin E) 1,000 Unit Capsule, 1,000 UNIT PO HS, (Reported) Entered as Reported by: LEOBARDO CARLIN on 03/10/22 1558 [Vit C/Vit D/Zinc] , 1 EA PO HS, (Reported) Entered as Reported by: LEOBARDO CARLIN on 03/10/22 1558 Review of Systems Review of Systems Constitutional: malaise EENTM: See HPI Respiratory: No Symptoms Reported Cardiovascular: See HPI Gastrointestinal: No Symptoms Reported Genitourinary: No Symptoms Reported Musculoskeletal: no symptoms reported Skin: no symptoms reported Psychiatric/Neurological: No Symptoms Reported Endocrine: No Symptoms Reported Hematologic/Lymphatic: No Symptoms Reported Past Ugplxkk-Qqvxid-Pfcfkn Hx Patient Social History Tobacco Use?: No Substance use?: No Alcohol Use?: No Pt feels they are or have been: No Immunizations Up To Date Tetanus Booster (TDap): Less than 5yrs PED Vaccines UTD: Yes Influenza Vaccine Up-to-Date: No; Not Current First/Initial COVID19 Vaccinat: NONE Second COVID19 Vaccination Arley: NONE Third COVID19 Vaccination Date: NONE Seasonal Allergies Seasonal Allergies: Yes Past Medical History Surgery/Hospitalization HX: pacemaker, CHF, A-fib, Cardiac cath, 4 cardiac ablasions, hysterectomy, appendectomy, tonsillectomy, titi, hiatal hernia, ureteral stent, d&c,BLADDER SLINGafib, chf, copd, renal stones, htn, high cholesterol, liver disease,barrettsesophagus, hypothryoidism Surgeries: Yes Abdominal (D&C, hiatal hernia), Appendectomy, Bladder Surgery, Cardiac (Heart cath and cardiac ablation, electrical cardioversion), Gallbladder, Hysterectomy, Pacemaker, Renal (Ureteral stent), Tonsillectomy Respiratory: Yes (HX PARALYZED DIAPHRAGM) Pneumonia, COPD Currently Using CPAP: No Currently Using BIPAP: No Cardiac: Yes (PACEMAKER) Atrial Fibrillation, Hypertension Neurological: Yes (Right diaphragmatic paralysis) Stroke 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 Sexually Transmitted Disease: No Genitourinary: Yes Kidney Stones Gastrointestinal: Yes Gastroesophageal Reflux, Reina's Esophagus, Hemorrhoids, Hiatal Hernia Musculoskeletal: Yes Back Injury Endocrine: Yes Hypothyroidsim HEENT: No Loss of Vision: Denies Hearing Impairment: Denies Cancer: Yes Colon Psychosocial: Yes PTSD, Depression Integumentary: Yes Psoriasis Blood Disorders: No Family Medical History Colon cancer Noncontributory Physical Exam Vital Signs Vital Signs - First Documented 10/11/22 07:35 Pulse 111 Resp 18 B/P (MAP) 111/60 (77) Pulse Ox 95 O2 Delivery Room Air Capillary Refill : Less Than 3 Seconds Height, Weight, BMI Height: '" Weight: lbs. oz. kg; 32.00 BMI Method: General Appearance: No Apparent Distress, WD/WN HEENT: PERRL/EOMI, Other (Oropharynx dry and pasty) Neck: Normal Inspection; No JVD Respiratory: Lungs Clear, Normal Breath Sounds, No Accessory Muscle Use, No Respiratory Distress Cardiovascular: No Edema, No Murmur, Tachycardia (Regular) Extremity: Normal Inspection, No Pedal Edema Neurologic/Psychiatric: Oriented x3, No Motor/Sensory Deficits, Normal Mood/Affect Skin: Normal Color, Warm/Dry Progress/Results/Core Measures Results/Orders Lab Results Laboratory Tests Test 10/11/22 07:44 Range/Units White Blood Count 7.5 4.3-11.0 10^3/uL Red Blood Count 5.42 H 3.80-5.11 10^6/uL Hemoglobin 15.8 11.5-16.0 g/dL Hematocrit 45 35-52 % Mean Corpuscular Volume 84 80-99 fL Mean Corpuscular Hemoglobin 29 25-34 pg Mean Corpuscular Hemoglobin Concent 35 32-36 g/dL Red Cell Distribution Width 13.0 10.0-14.5 % Platelet Count 282 130-400 10^3/uL Mean Platelet Volume 10.4 9.0-12.2 fL Immature Granulocyte % (Auto) 0 % Neutrophils (%) (Auto) 49 42-75 % Lymphocytes (%) (Auto) 41 12-44 % Monocytes (%) (Auto) 8 0-12 % Eosinophils (%) (Auto) 2 0-10 % Basophils (%) (Auto) 0 0-10 % Neutrophils # (Auto) 3.7 1.8-7.8 10^3/uL Lymphocytes # (Auto) 3.1 1.0-4.0 10^3/uL Monocytes # (Auto) 0.6 0.0-1.0 10^3/uL Eosinophils # (Auto) 0.1 0.0-0.3 10^3/uL Basophils # (Auto) 0.0 0.0-0.1 10^3/uL Immature Granulocyte # (Auto) 0.0 0.0-0.1 10^3/uL Sodium Level 142 135-145 MMOL/L Potassium Level 3.4 L 3.6-5.0 MMOL/L Chloride Level 105 98-107 MMOL/L Carbon Dioxide Level 22 21-32 MMOL/L Anion Gap 15 H 5-14 MMOL/L Blood Urea Nitrogen 13 7-18 MG/DL Creatinine 0.96 0.60-1.30 MG/DL Estimat Glomerular Filtration Rate 70 BUN/Creatinine Ratio 14 Glucose Level 103 70-105 MG/DL Calcium Level 9.7 8.5-10.1 MG/DL Magnesium Level 2.1 1.6-2.4 MG/DL Thyroid Stimulating Hormone (TSH) 5.87 H 0.35-4.94 UIU/ML Free Thyroxine 0.96 0.70-1.48 NG/DL My Orders Orders - KINGSLEY CURTIS MD Ekg Tracing (10/11/22 07:39) Monitor-Rhythm Ecg Trace Only (10/11/22 07:41) Basic Metabolic Panel (10/11/22 07:51) Cbc With Automated Diff (10/11/22 07:51) Magnesium (10/11/22 07:51) Ed Iv/Invasive Line Start (10/11/22 07:51) Lactated Ringers (Lr 1000 Ml Iv Solution (10/11/22 08:00) Thyroid Stimulating Hormone (10/11/22 08:05) Free T4 (Free Thyroxine) (10/11/22 08:05) Diltiazem Tablet (Cardizem Tablet) (10/11/22 10:24) Medications Given in ED Current Medications Medications Dose Ordered Sig/Giselle Route Start Time Stop Time Status Last Admin Dose Admin Lactated Ringer's 1,000 ml @ 0 mls/hr Q0M ONCE IV 10/11/22 08:00 10/11/22 08:01 DC 10/11/22 09:00 1,000 MLS/HR Vital Signs/I&O 10/11/22 07:35 Pulse 111 Resp 18 B/P (MAP) 111/60 (77) Pulse Ox 95 O2 Delivery Room Air Blood Pressure Mean: 77 Progress Progress Note : Time: 07:57 Progress Note Patient was interviewed and examined. IV fluids are being infused as she appears dry. Basic labs are being evaluated. We will monitor her heart rhythm and likely consult cardiology. Initial ECG Impression Date: Oct 11, 2022 Initial ECG Impression Time: 07:47 Initial ECG Rate: 111 Initial ECG Rhythm: A Fib/Flutter Comment Atrial flutter with mild tachycardia. No ST elevation or depression. No abnormal intervals or axis deviation. Departure Impression Primary Impression: Paroxysmal atrial flutter Additional Impression: Palpitations Disposition: HOME, SELF-CARE Condition: Stable Departure-Patient Inst. Decision time for Depature: 10:30 Referrals: JIMY BENNETT MD (PCP/Family) Primary Care Physician Patient Instructions: Atrial Flutter Add. Discharge Instructions: Continue taking Xarelto as prescribed. Tonight change your diltiazem dose to 180 mg as prescribed. Follow-up with Dr. Ruvalcaba on Thursday. Return to the ER if you have worsening condition or any further problems or concerns while you are awaiting follow-up with Dr. Ruvalcaba. All discharge instructions reviewed with patient and/or family. Voiced understanding. Scripts Diltiazem HCl (Diltiazem 24Hr ER) 180 Mg Cap.er.24h 180 MG PO DAILY, #30 CAP Replaces the 120 mg dose. Prov: KINGSLEY CURTIS MD 10/11/22 KINGSLEY CURTIS MD Oct 11, 2022 07:57
[2022-10-11] MEDS ORDERED: LACTATED RINGERS 1,000 ML IV ONE (08:00)
[2022-10-11 08:01] LABS: BASOPHILS % (AUTO) 0 % (0-10); EOSINOPHILS # (AUTO) 0.1 10^3/uL (0.0-0.3); EOSINOPHILS % (AUTO) 2 % (0-10); HEMATOCRIT 45 % (35-52); HEMOGLOBIN 15.8 g/dL (11.5-16.0); LYMPHOCYTES # (AUTO) 3.1 10^3/uL (1.0-4.0); LYMPHOCYTES % (AUTO) 41 % (12-44); MEAN CORPUSCULAR HEMOGLOBIN 29 pg (25-34); MEAN CORPUSCULAR HGB CONC 35 g/dL (32-36); MEAN CORPUSCULAR VOLUME 84 fL (80-99); MEAN PLATELET VOLUME 10.4 fL (9.0-12.2); MONOCYTES # (AUTO) 0.6 10^3/uL (0.0-1.0); MONOCYTES % (AUTO) 8 % (0-12); NEUTROPHILS # (AUTO) 3.7 10^3/uL (1.8-7.8); NEUTROPHILS % (AUTO) 49 % (42-75); PLATELET COUNT 282 10^3/uL (130-400); WHITE BLOOD COUNT 7.5 10^3/uL (4.3-11.0)
[2022-10-11 08:08] LABS: POTASSIUM 3.4 MMOL/L (3.6-5.0)
[2022-10-11 08:09] LABS: CALCIUM 9.7 MG/DL (8.5-10.1)
[2022-10-11 08:13] LABS: CREATININE SERUM 0.96 MG/DL (0.60-1.30)
[2022-10-11 08:16] LABS: MAGNESIUM 2.1 MG/DL (1.6-2.4)
[2022-10-11 08:44] LABS: FREE T4 (FREE THYROXINE) 0.96 NG/DL (0.70-1.48)
[2022-10-11] MEDS ORDERED: DILT180C85 PO (10:33)
[2022-10-11 11:25] VITALS: BP 113/89
== END 2022-10-11 11:25 | disposition home or self-care (01) ==
LOC: EDUNIT# 07:31 → ER 07:32
DX: I48.92 Unspecified atrial flutter (principal); Z95.0 Presence of cardiac pacemaker; Z86.79 Personal history of other diseases of the circulatory system; Z98.61 Coronary angioplasty status; Z91.040 Latex allergy status; Z28.310 Unvaccinated for COVID-19
CPT/HCPCS: 36415; 80048; 83735; 84439; 84443; 85025; 93005; 93041

== ENCOUNTER 2022-10-13 11:09 | Emergency (ER) | payer BC ==
[~2022-10-13] VITALS: Ht 162.5 cm; Wt 88.4 kg
[~2022-10-13 11:09] MED LIST changes: +DILT180C85 PO; +TOPI-241 PO; -TOPI50TA13 PO
--- NOTE | 2022-10-13 11:29 | ED Cardiac General ---
History of Present Illness General Stated Complaint: AFIB | LOW OXYGEN Source: patient Exam Limitations: no limitations History of Present Illness Date Seen by Provider: Oct 13, 2022 Time Seen by Provider: 11:12 Initial Comments 57-year-old female presents for elevated heart rate, palpitations. She does have some shortness of breath when her heart rates are elevated and she exerts herself. No history of A-fib. She is on Xarelto but stopped taking it recently due to a procedure. She did restart all Thursday and has been compliant since that time she was seen here recently for similar symptoms. She was given oral diltiazem at that time and had improvement in her heart rates. All other systems reviewed and negative except documented per HPI. Voice recognition software was used to help create this chart Allergies and Home Medications Allergies Coded Allergies: Latex, Natural Rubber (Verified Allergy, Intermediate, Shortness of Breath, PARALIZED DIAHPHRAM, 02/17/22) dronedarone (Verified Allergy, NAUSEA ONLY, 10/14/22) Patient Home Medication List Home Medication List Reviewed: Yes Albuterol Sulfate (Albuterol Sulfate) 2.5 Mg/3 Ml (0.083 %) Vial.neb, 3 ML NEB Q4H PRN for SHORTNESS OF BREATH, (Reported) Entered as Reported by: LEOBARDO CARLIN on 03/10/22 1558 Clonidine HCl (Clonidine HCl) 0.1 Mg Tablet, 0.1 MG PO BID PRN for BP OVER 140/90, (Reported) Entered as Reported by: LEOBARDO CARLIN on 08/26/21 1043 Diazepam (Diazepam) 5 Mg Tablet, 5 MG PO BID PRN for ANXIETY, (Reported) Entered as Reported by: LEOBARDO CARLIN on 08/26/21 1043 Diltiazem HCl (Diltiazem 24Hr ER) 180 Mg Cap.er.24h, 180 MG PO DAILY Prescribed by: KINGSLEY DAY on 10/11/22 1033 Docusate Sodium (Colace) 100 Mg Capsule, 100 MG PO BID, (Reported) Entered as Reported by: RAJAN SWANN on 10/13/22 1711 Fish Oil/Dha/Epa (Fish Oil 1,200 mg Fish Oil) 1,200 Mg-144 Mg-216 Mg Capsule, 1 EACH PO HS, (Reported) Entered as Reported by: LEOBARDO CARLIN on 03/10/221557 Furosemide (Furosemide) 40 Mg Tablet, 40 MG PO DAILY, (Reported) Entered as Reported by: LEOBARDO CARLIN on 03/10/221557 Levocetirizine Dihydrochloride (Levocetirizine Dihydrochloride) 5 Mg Tablet, 5 MG PO HS, (Reported) Entered as Reported by: KERLINE JORGENSEN on 05/30/22 1012 Meclizine HCl (Meclizine HCl) 25 Mg Tablet, 25 MG PO Q6H PRN for dizziness Prescribed by: ANDREE BUTT on 10/02/22 1045 Pantoprazole Sodium (Pantoprazole Sodium) 40 Mg Tablet.dr, 40 MG PO HS, (Reported) Entered as Reported by: MYRTLE VANN on 02/04/22 1240 Propafenone HCl (Propafenone HCl) 150 Mg Tablet, 150 MG PO TID Prescribed by: ERIKA RUVALCABA on 10/14/22 0829 Rivaroxaban (Xarelto) 20 Mg Tablet, 20 MG PO 1900, (Reported) Entered as Reported by: LEOBARDO CARLIN on 03/10/221557 Sumatriptan Succinate (Sumatriptan Succinate) 50 Mg Tablet, 50 MG PO UD PRN for MIGRAINE, (Reported) Entered as Reported by: LEOBARDO CARLIN on 03/10/221557 Vitamin E Mixed (Vitamin E) 1,000 Unit Capsule, 1,000 UNIT PO HS, (Reported) Entered as Reported by: LEOBARDO CARLIN on 03/10/22 155 [Vit C/Vit D/Zinc] , 1 EA PO HS, (Reported) Entered as Reported by: LEOBARDO CARLIN on 03/10/221557 Discontinued Medications Amiodarone HCl (Amiodarone HCl) 200 Mg Tablet, 200 MG PO UD Discontinued Reason: No Longer Taking Prescribed by: ERIKA RUVALCABA on 05/30/22 1034 Diltiazem HCl (Diltiazem 24Hr ER) 120 Mg Cap.er.24h, 120 MG PO HS, (Reported) Discontinued Reason: No Longer Taking Entered as Reported by: LEOBARDO CARLIN on 03/10/221557 Tiotropium [place] (Spiriva Respimat 1.25MCG/ACTUATION) 1.25 Mcg/Actuation Mist.inhal, 2 PUFF IH DAILY PRN for SHORTNESS OF BREATH, (Reported) Discontinued Reason: No Longer Taking Entered as Reported by: LEOBARDO CARLIN on 03/10/22 1558 Tramadol HCl (Tramadol HCl) 50 Mg Tablet, 50 MG PO Q6H PRN for PAIN Discontinued Reason: No Longer Taking Prescribed by: ANDREE BUTT on 10/02/22 1045 Review of Systems Review of Systems Constitutional: see HPI Past Qgymjsr-Fsiqyx-Vruxar Hx Immunizations Up To Date Tetanus Booster (TDap): Less than 5yrs PED Vaccines UTD: Yes First/Initial COVID19 Vaccinat: NONE Second COVID19 Vaccination Arley: NONE Third COVID19 Vaccination Date: NONE Seasonal Allergies Seasonal Allergies: Yes Past Medical History Surgery/Hospitalization HX: pacemaker, CHF, A-fib, Cardiac cath, 4 cardiac ablasions, hysterectomy, appendectomy, tonsillectomy, titi, hiatal hernia, ureteral stent, d&c,BLADDER SLINGafib, chf, copd, renal stones, htn, high cholesterol, liver disease,barrettsesophagus, hypothryoidism Surgeries: Yes Abdominal, Appendectomy, Bladder Surgery, Cardiac, Gallbladder, Hysterectomy, Pacemaker, Renal, Tonsillectomy Respiratory: Yes (HX PARALYZED DIAPHRAGM) Pneumonia, COPD Currently Using CPAP: No Currently Using BIPAP: No Cardiac: Yes (PACEMAKER) Atrial Fibrillation, Hypertension Neurological: Yes (Right diaphragmatic paralysis) Stroke Female 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 Disorders: Denies 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 Sexually Transmitted Disease: No Genitourinary: Yes Kidney Stones Gastrointestinal: Yes Gastroesophageal Reflux, Reina's Esophagus, Hemorrhoids, Hiatal Hernia Musculoskeletal: Yes Back Injury Endocrine: Yes Hypothyroidsim HEENT: No Loss of Vision: Denies Hearing Impairment: Denies Cancer: Yes Colon Psychosocial: Yes PTSD, Depression Integumentary: Yes Psoriasis Blood Disorders: No Family Medical History Colon cancer Noncontributory Physical Exam Vital Signs Vital Signs - First Documented 10/13/22 11:16 Pulse 122 Resp 16 B/P (MAP) 154/106 (122) Pulse Ox 98 O2 Delivery Room Air Capillary Refill : Height, Weight, BMI Height: '" Weight: lbs. oz. kg; 32.00 BMI Method: General Appearance: No Apparent Distress, WD/WN HEENT: Normal ENT Inspection, Pharynx Normal Neck: Normal Inspection, Non Tender Respiratory: Chest Non Tender, Lungs Clear, Normal Breath Sounds, No Accessory Muscle Use, No Respiratory Distress Cardiovascular: No Murmur, Normal Peripheral Pulses, Irregularly Irregular, Tachycardia (120-130) Gastrointestinal: Normal Bowel Sounds, No Organomegaly, Non Tender, Soft Extremity: Normal Capillary Refill, Normal Inspection, Non Tender, No Calf Tenderness Neurologic/Psychiatric: Alert, Oriented x3 Skin: Normal Color, Warm/Dry Progress/Results/Core Measures Results/Orders Lab Results Laboratory Tests Test 10/13/22 11:30 Range/Units White Blood Count 7.2 4.3-11.0 10^3/uL Red Blood Count 5.16 H 3.80-5.11 10^6/uL Hemoglobin 15.3 11.5-16.0 g/dL Hematocrit 44 35-52 % Mean Corpuscular Volume 85 80-99 fL Mean Corpuscular Hemoglobin 30 25-34 pg Mean Corpuscular Hemoglobin Concent 35 32-36 g/dL Red Cell Distribution Width 13.0 10.0-14.5 % Platelet Count 252 130-400 10^3/uL Mean Platelet Volume 10.4 9.0-12.2 fL Immature Granulocyte % (Auto) 0 % Neutrophils (%) (Auto) 51 42-75 % Lymphocytes (%) (Auto) 41 12-44 % Monocytes (%) (Auto) 7 0-12 % Eosinophils (%) (Auto) 1 0-10 % Basophils (%) (Auto) 1 0-10 % Neutrophils # (Auto) 3.6 1.8-7.8 10^3/uL Lymphocytes # (Auto) 2.9 1.0-4.0 10^3/uL Monocytes # (Auto) 0.5 0.0-1.0 10^3/uL Eosinophils # (Auto) 0.1 0.0-0.3 10^3/uL Basophils # (Auto) 0.0 0.0-0.1 10^3/uL Immature Granulocyte # (Auto) 0.0 0.0-0.1 10^3/uL Sodium Level 143 135-145 MMOL/L Potassium Level 3.5 L 3.6-5.0 MMOL/L Chloride Level 107 98-107 MMOL/L Carbon Dioxide Level 25 21-32 MMOL/L Anion Gap 11 5-14 MMOL/L Blood Urea Nitrogen 13 7-18 MG/DL Creatinine 0.94 0.60-1.30 MG/DL Estimat Glomerular Filtration Rate 72 BUN/Creatinine Ratio 14 Glucose Level 90 70-105 MG/DL Calcium Level 9.7 8.5-10.1 MG/DL Corrected Calcium 9.3 8.5-10.1 MG/DL Magnesium Level 2.0 1.6-2.4 MG/DL Total Bilirubin 0.8 0.1-1.0 MG/DL Aspartate Amino Transf (AST/SGOT) 23 5-34 U/L Alanine Aminotransferase (ALT/SGPT) 36 0-55 U/L Alkaline Phosphatase 83 40-136 U/L Troponin I < 0.028 <0.028 NG/ML Total Protein 7.5 6.4-8.2 GM/DL Albumin 4.5 3.2-4.5 GM/DL My Orders Orders - AMIRAHLANIE DO Cbc With Automated Diff (10/13/22 11:23) Magnesium (10/13/22 11:23) Chest 1 View, Ap/Pa Only (10/13/22 11:23) Ekg Tracing (10/13/22 11:23) Comprehensive Metabolic Panel (10/13/22 11:23) Monitor-Rhythm Ecg Trace Only (10/13/22 11:23) Ed Iv/Invasive Line Start (10/13/22 11:23) Ct Angio Chest W (10/13/22 11:24) Troponin I Catron (10/13/22 11:23) Diltiazem Injection (Cardizem Injection) (10/13/22 11:30) Potassium Chloride (Tablet) (K Dur Table (10/13/22 12:15) Iohexol Injection (Omnipaque 350 Mg/Ml 1 (10/13/22 12:30) Received Contrast (Hold Metformin- Contr (10/13/22 12:30) Ns (Ivpb) (Sodium Chloride 0.9% Ivpb Bag (10/13/22 12:30) Medications Given in ED Vital Signs/I&O 10/13/22 10/13/22 10/13/22 11:16 11:44 13:11 Pulse 122 115 87 Resp 16 14 B/P (MAP) 154/106 (122) 136/97 118/102 Pulse Ox 98 97 O2 Delivery Room Air Room Air Comment EKG x1130 shows atrial fibrillation with a rate of 120 bpm. Normal intervals outside of [place] interval's. Diffuse T wave inversions sparing the lateral leads. No ST changes. No STEMI. EKG : Comment Repeat EKG x1222 shows atrial fibrillation rate of 84 bpm. Diffuse T wave inversions during the lateral leads I and aVL. No ST changes. Isolated PVC. No STEMI. Departure Communication (Admissions) I spoke to Dr. Ruvalcaba early on in the patient's course. He request no cardioversion as the patient has not been fully anticoagulated for 4 to 6 weeks. He states he would prefer to rate control her here and discharge her in follow- up in the clinic to schedule LENORE with possible cardioversion. Patient's rate is controlled with single IV dose of diltiazem. She did have some chest tightness once her rate was improved, repeat EKG shows diffuse T wave inversions that are similar to previous EKG comparisons within the last year. No acute ST changes or evidence for STEMI, acute ischemia. Her chest tightness did subside during her stay. She remained in atrial fibrillation with a rate controlled rhythm in the 80s. Blood pressures have remained stable. There is no evidence for septic type or infectious type picture causing her symptoms. Her potassium is slightly low, repleted orally. She will call Dr. Ruvalcaba's office to schedule follow-up as requested for him. Not anemic. No evidence for other emergent medical con dition at this time. She is discharged home in stable condition with supportive care. Impression Primary Impression: Atrial fibrillation with RVR Disposition: 01 HOME, SELF-CARE Condition: Stable Departure-Patient Inst. Referrals: JIMY BENNETT MD (PCP/Family) Primary Care Physician Patient Instructions: Atrial Fibrillation Add. Discharge Instructions: As discussed Dr. Ruvalcaba wants to wait to cardiovert you as an outpatient. Please call his clinic to schedule a follow-up appointment. Return to the emergency department for any severe chest pain, severe shortness of breath or if your symptoms change in any way concerning to you. Follow with your primary doctor for any nonemergent needs. Potassium was slightly low here today, we have given you similarly. Recommend having this rechecked in the next week. LANIE MACARIO DO Oct 13, 2022 11:29
[2022-10-13 11:40] LABS: BASOPHILS % (AUTO) 1 % (0-10); EOSINOPHILS # (AUTO) 0.1 10^3/uL (0.0-0.3); EOSINOPHILS % (AUTO) 1 % (0-10); HEMATOCRIT 44 % (35-52); HEMOGLOBIN 15.3 g/dL (11.5-16.0); LYMPHOCYTES # (AUTO) 2.9 10^3/uL (1.0-4.0); LYMPHOCYTES % (AUTO) 41 % (12-44); MEAN CORPUSCULAR HEMOGLOBIN 30 pg (25-34); MEAN CORPUSCULAR HGB CONC 35 g/dL (32-36); MEAN CORPUSCULAR VOLUME 85 fL (80-99); MEAN PLATELET VOLUME 10.4 fL (9.0-12.2); MONOCYTES # (AUTO) 0.5 10^3/uL (0.0-1.0); MONOCYTES % (AUTO) 7 % (0-12); NEUTROPHILS # (AUTO) 3.6 10^3/uL (1.8-7.8); NEUTROPHILS % (AUTO) 51 % (42-75); PLATELET COUNT 252 10^3/uL (130-400); WHITE BLOOD COUNT 7.2 10^3/uL (4.3-11.0)
[2022-10-13 11:57] LABS: ALBUMIN 4.5 GM/DL (3.2-4.5)
[2022-10-13 11:58] LABS: CHLORIDE 107 MMOL/L (98-107); POTASSIUM 3.5 MMOL/L (3.6-5.0); SODIUM 143 MMOL/L (135-145)
[2022-10-13 11:59] LABS: CALCIUM 9.7 MG/DL (8.5-10.1)
[2022-10-13 12:00] LABS: GLUCOSE 90 MG/DL (70-105); TOTAL PROTEIN 7.5 GM/DL (6.4-8.2)
[2022-10-13 12:01] LABS: CARBON DIOXIDE 25 MMOL/L (21-32)
[2022-10-13 12:02] LABS: BILIRUBIN,TOTAL 0.8 MG/DL (0.1-1.0)
[2022-10-13 12:03] LABS: ALKALINE PHOSPHATASE 83 U/L (40-136)
[2022-10-13 12:04] LABS: CREATININE SERUM 0.94 MG/DL (0.60-1.30); GFR ESTIMATED 72
[2022-10-13 12:05] LABS: BUN/CREATININE RATIO 14
[2022-10-13 12:06] LABS: ALANINE AMINOTRANSFERASE 36 U/L (0-55)
--- NOTE | 2022-10-13 12:07 | Diagnostic Imaging Report ---
INDICATION: Chest pain COMPARISON: 10/02/2022 FINDINGS: Single frontal view of the chest demonstrates normal heart size and pulmonary vascularity. Left-sided dual-lead pacemaker is noted. The lungs continue show asymmetric elevation of the right hemidiaphragm with plate like atelectasis in right perihilar region. No large pleural effusion or pneumothorax is seen. The visualized osseous structures show no acute abnormalities. IMPRESSION: 1. No new acute cardiopulmonary process. Dictated by: Dictated on workstation # [id number]
[2022-10-13] MEDS ORDERED: KCL 20 MEQ TAB (K-DUR) PO ONE (12:15)
[2022-10-13] MEDS ORDERED: NS 100 ML (IVPB) BAG IV ONE (12:30)
[2022-10-13] MEDS ORDERED: HOLD METFORMIN - RECEIVED CONTRAST 20 ML VIAL IV SCH (12:30)
[2022-10-13] MEDS ORDERED: IOHEXOL 350 MG/ML 100 ML (OMNIPAQUE 350) VIAL IV ONE (12:30)
--- NOTE | 2022-10-13 12:31 | Diagnostic Imaging Report ---
PROCEDURE: CT angiography of the chest with contrast. TECHNIQUE: Multiple contiguous axial images were obtained through the chest after uneventful bolus administration of intravenous contrast. 3D reconstructed CTA MIP acquisitions were also performed. Auto Exposure Controls were utilized during the CT exam to meet ALARA standards for radiation dose reduction. INDICATION: Chest pain, dyspnea. COMPARISON: 01/15/2022 FINDINGS: Pacer device is present battery pack within the anterior left chest. Mild scattered vascular calcifications. No aneurysmal dilatation of the thoracic aorta. The heart is borderline enlarged. Moderate size hiatal hernia. No significant pericardial effusion. No pleural effusion. Stable significant elevation of the right hemidiaphragm. Mild bibasilar scarring and/or atelectasis, with linear scarring particularly noted within the right lower lobe. Additional tree-in-bud nodularity and scarring is noted within the lateral left lower lobe. This is unchanged since July 2020 and benign. The trachea is patent. No significant filling defect within the central or segmental pulmonary arteries. The minimally visualized upper abdomen is unremarkable. Scattered osseous degenerative changes without acute osseous abnormality. IMPRESSION: No significant pulmonary embolus. Moderate sized hiatal hernia. Stable elevation of the right hemidiaphragm with associated mild bibasilar scarring and/or atelectasis. Additional stable findings as above. Dictated by: Dictated on workstation # [id number]
[2022-10-13 13:11] VITALS: BP 118/102
[2022-10-13] MEDS ORDERED: DOCU-143 PO (17:11)
[2022-10-14] MEDS ORDERED: PROP150T PO (08:29)
--- NOTE | 2022-10-14 13:58 | Anesthesia-General Post-Op ---
MAC Patient Condition Mental Status/LOC: Same as Preop Cardiovascular: Satisfactory Nausea/Vomiting: Absent Respiratory: Satisfactory Pain: Controlled Complications: Absent Post Op Complications Complications None Follow Up Care/Instructions Patient Instructions None needed. Anesthesiology Discharge Order Discharge Order Patient is doing well, no complaints, stable vital signs, no apparent adverse anesthesia problems. No complications reported per nursing. GEMMA LEIGH CRNA Oct 14, 2022 13:58
== END 2022-10-13 13:11 | disposition home or self-care (01) ==
LOC: EDUNIT# 11:09 → ER 11:11
DX: I48.91 Unspecified atrial fibrillation (principal); E87.6 Hypokalemia; I50.9 Heart failure, unspecified; I11.0 Hypertensive heart disease with heart failure
CPT/HCPCS: 36415; 71045; 71275; 80053; 83735; 84484; 85025; 93005; 93041

== ENCOUNTER 2022-10-13 14:08 | Inpatient (IN) | payer BC ==
[~2022-10-13] VITALS: Ht 162.6 cm; Wt 88.4 kg
--- OUTSIDE RECORDS SUMMARY | 2022-10-13 14:12 | XMS REPORT | Clinical Summary ---
Author Author [facility] Organization [facility] Address Unknown Phone Unavailable Care Team Providers Care Client Care Consultant Name Role Phone PCP Unavailable Allergies Not on File Medications Not on file Active Problems Not on file Social History Date Tobacco Use Types Packs/Day Years Used Smoking Tobacco: Never Assessed Sex Assigned at Date Recorded Not on file Last Filed Vital Signs Not on file Plan of Treatment Not on file Results Not on filefrom Last 3 Months
--- OUTSIDE RECORDS SUMMARY | 2022-10-13 14:12 | XMS REPORT | Clinical Summary ---
Author Author [facility] Organization [facility] Address Unknown Phone Unavailable Care Team Providers Care Wood Polisher Name Role Phone Heriberto Nunn MD PCP Alan Jackson MD [phone] Thania Ruvalcaba MD [phone] Fab Perea MD, Yeruva Unavailable Tien Valles MD Unavailable Source Comments Some departments are not documenting in the electronic medical record. If you d o not see the information that you expected, contact Release of Information in [facility] Information Management department at [phone] for further assistan ce in locating additional records.[facility] Allergies Comments Active Allergy Reactions Severity Noted Date Pt reports hand rash with latex gloves. Latex ITCHING, RASH Medium 01/01/2012 Dronedarone NAUSEA ONLY, High 09/17/2021 DIZZINESS, HYPOTENSION Medications End Date Status Medication Sig Dispensed Refills Start Date Active albuterol sulfate (PROAIR Inhale 2 0 09/10 HFA) 90 mcg/actuation HFA puffs by 8 aerosol inhaler mouth into the lungs every 6 hours as needed. Active cloNIDine (CATAPRESS) 0.1 Take 0.1 mg 0 /0 mg tablet by mouth 7 daily as needed (Only takes if BP >140/90 mmHg). Active diazePAM (VALIUM) 5 mg Take 5 mg by 0 tablet mouth at bedtime as needed for Anxiety. Active fluticasone propionate Apply 1 spray 0 12/13/2 02 (FLONASE) 50 to each 1 mcg/actuation nasal nostril as spray, suspension directed daily as needed. Active levothyroxine (SYNTHROID) Take 112 mcg 0 112 mcg tablet by mouth daily 30 minutes before breakfast. Active tiotropium bromide Inhale 1 puff 0 (SPIRIVA RESPIMAT) 2.5 by mouth into mcg/actuation inhaler the lungs daily. Active rivaroxaban (XARELTO) 20 Take 20 mg by 0 mg tablet mouth at bedtime daily. Take with food. Active metoclopramide HCL Take 10 mg by 0 (REGLAN) 5 mg tablet mouth every 6 hours as needed. Active fish oil /omega-3 fatty Take 1 0 acids (SEA-OMEGA) capsule by 340/1000 mg capsule mouth at bedtime daily. Active vitamin E 400 unit Take 400 0 capsule Units by mouth at bedtime daily. Active vitamins, multiple cap Take 1 0 capsule by mouth at bedtime daily. Active albuterol (ACCUNEB) 1.25 Inhale 1.25 0 mg/3 mL nebulizer mg by mouth solution into the lungs every 4 hours as needed for Wheezing. Active docusate (COLACE) 100 mg Take 200 mg 0 capsule by mouth at bedtime daily. Active diclofenac sodium Apply two g 300 g 0 10/30/19 2 (VOLTAREN) 1 % topical topically to 2 gel affected area four times daily as needed. Active pantoprazole DR Take one 60 tablet 0 (PROTONIX) 40 mg tablet tablet by 2 mouth twice daily. 10/30/2022 Active dilTIAZem CD (CARDIZEM Take one 180 capsule 3 CD) 120 mg capsule capsule by 2 mouth twice daily for 360 days. Active spironolactone TAKE ONE 90 tablet 3 (ALDACTONE) 25 mg tablet TABLET BY 2 MOUTH DAILY WITH FOOD. Active Problems Problem Noted Date Morbid obesity 10/17/2021 PVC (premature ventricular contraction) 05/14/2021 Gastroparesis 05/09/2021 Status post laparoscopic Rose fundoplication 12/07 Overview: 11/28/2020 - Laparoscopic repair of recu rrent hiatal hernia with mesh, rose fundoplication completed by Dr. Carol Kumar Gastroesophageal reflux disease with hiatal hernia 0 11/28/2020 Hiatal hernia 10/17/2020 Overview: Recurrent; lap HH repair, ? Fundoplicat ion 2019 in [place]. 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 03/25/2019 Typical atrial flutter 02/12/2019 History of cardiac radiofrequency ablation 9 Fatigue 01/15/2018 Hyperlipidemia 01/15/2018 Hypertension 01/15/2018 Non-rheumatic mitral regurgitation 01/15/2018 Non-rheumatic tricuspid valve insufficiency 01/16/20 18 Numbness of both lower extremities 01/15/2018 Palpitation 01/15/2018 Encounter for checking and testing of cardiac pacemak er pulse generator 10/19/2017 (battery) Overview: Medronic Pacemaker Sinus node dysfunction 10/19/2017 Paroxysmal atrial fibrillation 10/14/2017 Overview: 2014 - s/p LAAA ([place], [place]) 2016 - s/p LAAA ([place]) 2019 - s/p LAAA ([place], [place]) - ECHO: ([facility]) Normal LV function. LA enlargement. Mild TVR with mild to mod erate pulmonary HTN. 12/04/2020 - ECHO: ([facility]) LV cavity size is normal. LV [...] PAP 25mmHg. 12/05/2020 - [facility] + DCCV: ([facility]) Successful electrical cardioversion ter minating AFL/AF. 08/26/2021 - [facility] + DCCV: ([facility]) Successful electrical cardioversion and terminating AFL. 10/23/2021 - s/p redo RF ablation - Pos terior wall isolation + Debulking, redo PVI to rights and lefts. Anterior mitral isthmus line. (Dr. Sanon) Fracture of left fibula 09/04/2017 Chest pain 01/04/2017 Overview: 08/06/2020 - CTA of Chest: ([facility]) Bilateral linear scarring without PE or other acute abnormality seen in the thorax. 08/15/2020 - [facility] of Chest: ([facility] No evidence of PE or thoracic aortic di ssection. Moderate-sized hiatal hernia. No acute feature is detected. 12/03/2020 - CTA of Chest: ([facility]) No acute PE. Bilateral small pleural e ffusions with bibasilar atelectasis. Trace pericardial effusio n. 12/04/2020 - Cardiac Catheterization: ([facility]) Normal coronary system . Normal LV size, EF 50%, elevated LVEDP. 03/17/2021 - CTA of Chest: ([facility] There is no identified PE. Mult ifocal mild atelectasis in the lungs. No identified acute cardiopulmo nary abnormality. Abnormal wall thickening in the region of the gastroe sophageal junction and proximal stomach with multiple prominent abnorma lly enlarged superior mesenteric and paraesophageal lumphnode most concernin g for a GE junction or proximal gastric malignancy. Calculus of right kidney 01/04/2017 Surgical History Surgery Date Site/Laterality Comments TONSILLECTOMY LAPAROSCOPIC APPENDECTOMY HX LAP CHOLECYSTECTOMY HX HYSTERECTOMY Complete HX HEMORRHOIDECTOMY HIATAL HERNIA REPAIR 07/13/2018 - + some form of an tireflux procedure 07/12/2019 HX SURGERY Cardiac ablation x3 PACEMAKER PLACEMENT 07/13/2011 - 07/12/2012 DILATION AND CURETTAGE multiple HX BLADDER SUSPENSION HX SURGERY Uvulectomy HX HEART CATHETERIZATION 07/13/2010 - 07/12/2011 LAPAROSCOPY Multiple HERNIA REPAIR 11/28/2020 Abdomen/N/A LAPAROSCOPIC RE PAIR PARAESOPHAGEAL HERNIA WITH/ WITHOUT FUNDOPLASTY AND IMPLANTATION OF MESH performed by Carol Kumar MD at [facility] [place] Medical devices from this surgery are i n the Medical Devices section. UPPER GASTROINTESTINAL 11/28/2020 Esophagus/N/A ESOPHAG OGASTRODUODENOSCOPY WITH SPECIMEN ENDOSCOPY COLLECTION BY BRUSHING/ WAS IMELDA performed by Carol Kumar MD at [facility] [place] Medical devices from this surgery are i n the Medical Devices section. ELECTROCARDIOGRAM RHYTHM DEVICE PLACEMENT CARDIOVERSION [id number] TRANSESOPHAGEAL ECHO CARDIAC CATHERIZATION [id number] HEART CATHETERIZATION 11/30/2020 Normal CORs [NST ALYSIA due to A Fib w RVR or type II IN] TRANSESOPHAGEAL 10/23/2021 N/A TRANSESOPHAGEA L ECHOCARDIOGRAM DURING INTERVENTION ECHOCARDIOGRAM performed by Cath Physicmarina n at [facility] EP [facility] Medical History Medical History Date Comments GERD (gastroesophageal reflux disease) Hypothyroidism Atrial fibrillation (HCC) Reina esophagus Endometriosis History of 2019 novel coronavirus 06/2020 disease (COVID-19) Hiatal hernia 10/17/2020 Recurrent; lap HH r epair, ? Fundoplication 2019 in [place]. Pacemaker 2011 CVA (cerebral vascular accident) (HCC) 2011 Left side weakness Congestive heart disease (HCC) MELISSA (obstructive sleep apnea) Heart attack (HCC) 12/03/2020 [facility] Gastroparesis 05/09/2021 Arthritis Asthma borderline Fatty liver Kidney stone Anxiety Depression PTSD (post-traumatic stress disorder) Family History Medical History Relation Name Comments Heart Disease Father Hypertension Father Stroke Father Heart Disease Maternal Grandfather Cancer Maternal Grandmother Cancer Mother Hypertension Mother Heart Disease Paternal Grandfather Cancer Paternal Grandmother Relation Name Status Comments Father Maternal Grandfather Maternal Grandmother Mother Paternal Grandfather Paternal Grandmother Social History Date Tobacco Use Types Packs/Day Years Used Smoking Tobacco: Never Smokeless Tobacco: Never Comments Alcohol Use Standard Drinks/Week rarely last drink 01/2020, use to drink alot Not Currently 0 (1 standard drink = 0.6 o z pure alcohol) Alcohol Habits Answer Date Recorded How often do you have a drink containing alcohol? No t asked How many drinks containing alcohol do you have on No t asked a typical day when you are drinking? How often do you have six or more drinks on one Less than monthly 10/15/2020 occasion? Sex Assigned at Date Recorded Female 11/07/2020 4:54 PM CDT Obstetrics History Last Filed Vital Signs Reading Time Taken Comments Vital Sign 128/76 10/29/2021 6:41 AM CDT Blood Pressure 81 10/29/2021 6:41 AM CDT Pulse 36.7 C (98 F) 10/29/2021 6:41 AM CDT Temperature - - Respiratory Rate 92% 10/29/2021 6:41 AM CDT Oxygen Saturation - - Inhaled Oxygen Concentration 89.7 kg (197 lb 12.8 oz) 10/29/2021 9:55 AM CDT Weight 162.6 cm (5' 4.02") 10/27/2021 6:24 AM CDT Height 33.94 10/27/2021 6:24 AM CDT Body Mass Index Plan of Treatment Health Maintenance Due Date Last Done Comments COVID-19 VACCINE (#1) 1967 HIV SCREENING 1982 DTAP/TDAP VACCINES (1 - 1985 Tdap) HEPATITIS C SCREENING 1985 PHYSICAL (COMPREHENSIVE) 1985 EXAM CERVICAL CANCER SCREENING 1988 BREAST CANCER SCREENING 2007 COLORECTAL CANCER 2012 SCREENING SHINGLES RECOMBINANT 2017 VACCINE (1 of 2) INFLUENZA VACCINE (#1) 2022 DEPRESSION SCREENING 07/13/2022 05/14/2021 Goals Goal Patient Associated Recent Progress Patient-Stat Aut hor Goal Type Problems ed? GOAL General On track (11/29/2020 No Silver [place], 11:20 AM CDT) JERMAN Jackson Note: Back to work and live with out pain Medical Devices Device Identifier Shelf Expiration Date Model / Serial / L ot Implanted Type Area Manufactur er Pacemaker Pacemaker 05/12/2021 [id number] / [id number] / [id number] Graft Soft Tissue 10x7cm Matristem N/A: Abdomen [employer] Porcine Urinary Bladder Dup1 - [id number] Implanted: Qty: 1 on 11/28/2020 by Carol Kumar MD at [facility] Results Not on filefrom Last 3 Months Insurance Type Payer Benefit Subscriber ID Effective Phone Address Plan / Dates Group O [facility] [id number] 2020-P [id number] [place] [address] Advance Directives Date Inactivated Comments Code Status Date Activated 10/29/2021 1:13 PM Full Code 10/23/2021 6:06 AM Comments Question Answer Provider has Yes discussed Code Status w/Patient or Family? Date Inactivated Comments Code Status Date Activated 12/01/2020 6:15 PM Full Code 11/28/2020 6:20 PM Comments Question Answer Provider has No, more discussion needed discussed Code Status w/Patient or Family? Care Teams Start Date End Date Wood Polisher Relationship Specialty 10/12/20 Heriberto Nunn MD PCP - General Family [address] [place] [address] 10/17/20 Alan Jackson MD CCP - Gastroentero [address] Continuity of logy [address] [place] [address] 12/27/20 Thania Ruvalcaba MD CCP - Cardiovascul [address] [facility] [place] [address] Care Provider 09/17/21 Jeremías Sanon MD Clinical [address] [place], [place] [id number] [place] [address] ology, Internal Medicine 09/17/21 Tien Valles MD Surgery [address] [place] [address]
[2022-10-13] MEDS ORDERED: dilTIAZem DRIP PRE-MIX 125 ML IV SCH (14:45)
[2022-10-13] MEDS ORDERED: RIVAROXABAN 20 MG TABLET (XARELTO) PO SCH (17:00)
[2022-10-13] MEDS ORDERED: DOCU-143 PO (17:11)
[2022-10-13] MEDS ORDERED: ONDANSETRON 4 MG/2 ML (SDV) Z0FRAN IVP PRN (17:30)
[2022-10-14 05:26] LABS: HEMATOCRIT 39 % (35-52); HEMOGLOBIN 13.2 g/dL (11.5-16.0); MEAN CORPUSCULAR HEMOGLOBIN 29 pg (25-34); MEAN CORPUSCULAR HGB CONC 34 g/dL (32-36); MEAN CORPUSCULAR VOLUME 85 fL (80-99); MEAN PLATELET VOLUME 10.8 fL (9.0-12.2); PLATELET COUNT 224 10^3/uL (130-400); WHITE BLOOD COUNT 5.4 10^3/uL (4.3-11.0)
[2022-10-14 05:49] LABS: CALCIUM 9.2 MG/DL (8.5-10.1); CREATININE SERUM 0.82 MG/DL (0.60-1.30)
--- NOTE | 2022-10-14 06:50 | Cardiology History & Physical ---
HPI-Cardiology Cardiology Consultation Date of Consultation 10/14/22 Date of Admission Time Seen by Provider: 08:00 Indication: Atrial flutter HPI 57-year-old lady with history of paroxysmal atrial fibrillation/flutter, was seen in my office in atrial flutter, has been to the emergency room multiple times. I decided to admit her and start her on Cardizem drip, denied any syncope, has been having chest pain and shortness of breath and increasing fatigue. Loss of energy. PMH-Cardiology Immunizations Up To Date Tetanus Booster (DTap): Less than 5yrs Date of Pneumonia Vaccine: Feb 05, 2020 Date of Influenza Vaccine: May 04, 2020 Seasonal Allergies Seasonal Allergies: Yes Surgeries Yes Respiratory Yes (HX PARALYZED DIAPHRAGM) Cardiovascular Yes (PACEMAKER) Neurological Yes (Right diaphragmatic paralysis) Stroke 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 System Sexually Transmitted Disease: No Female 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 Disorders: Denies Hysterectomy Genitourinary Yes Kidney Stones Gastrointestinal Yes Gastroesophageal Reflux, Reina's Esophagus, Hemorrhoids, Hiatal Hernia Musculoskeletal Yes Back Injury Endocrine Yes Hypothyroidsim HEENT No Loss of Vision: Denies Hearing Impairment: Denies Cancer Yes Colon Psychosocial Yes PTSD, Depression Integumentary Yes Psoriasis Blood Transfusions No Social History Patient Social History Marrital Status: Have you traveled recently?: No Alcohol Use?: No Family Hx Significant Family History: No Pertinent Family Hx Family History: Colon cancer ROS-Cardiology Review of Systems General: No Chills, No Night Sweats; Fatigue, Malaise; No Appetite HEENT: No Head Aches, No Visual Changes, No Eye Pain, No Ear Pain, No Dysphasia, No Sinus Congestion, No Post Nasal Drip, No Sore Throat Pulmonary: Dyspnea; No Cough, No Pleuritic Chest Pain Cardiovascular: Chest Pain; No: Palpitations, Orthopnea, Paroxysmal Noc. Dyspnea, Edema, Lt Headedness Gastrointestinal: No: Nausea, Vomiting, Abdominal Pain, Diarrhea, Constipation, Melena, Hematochezia Genitourinary: No Dysuria, No Frequency, No Incontinence, No Hematuria, No Retention Musculoskeletal: No: neck pain, shoulder pain, arm pain, back pain, hand pain, leg pain, foot pain Neurological: No: Weakness, Numbness, Incoordination, Change in speech, Confusion, Seizures Home Medications & Allergies Allergies: Coded Allergies: Latex, Natural Rubber (Verified Allergy, Intermediate, Shortness of Breath, PARALIZED DIAHPHRAM, 02/17/22) Home Medication List Reviewed: Yes Exam-Cardiology Vital Signs Vital Signs Date Time Temp Pulse Resp B/P (MAP) Pulse Ox O2 Delivery O2 Flow Rate FiO2 10/14/22 08:16 80 10/14/22 07:58 36.3 10/14/22 06:00 22 118/81 (93) 94 Room Air Exam General Appearance: Alert, Oriented X3, Cooperative, No Acute Distress HEENT: Atraumatic, PERRLA Respiratory: Clear to Auscultation, Normal Air Movement Cardiovascular: Normal S1, Normal S2, No Murmurs, Other (Atrial flutter with rapid ventricular response) Abdominal: Normal Bowel Sounds, Soft, No Tenderness, No Hepatosplenomegaly, No Masses Extremities: No Clubbing, No Cyanosis, No Edema, Normal Pulses, No Tenderness/Swelling Skin: No Rashes, No Breakdown, No Significant Lesion Neuro: Normal Gait, Normal Speech, Strength at 5/5 X4 Ext, Normal Tone, Sensation Intact Psych/Mental Status: Mental Status NL, Mood NL Results Labs Labs Laboratory Tests 10/14/22 04:24: White Blood Count 5.4, Red Blood Count 4.60, Hemoglobin 13.2, Hematocrit 39, Mean Corpuscular Volume 85, Mean Corpuscular Hemoglobin 29, Mean Corpuscular Hemoglobin Concent 34, Red Cell Distribution Width 13.2, Platelet Count 224, Mean Platelet Volume 10.8, Sodium Level 141, Potassium Level 4.0, Chloride Level 109H, Carbon Dioxide Level 21, Anion Gap 11, Blood Urea Nitrogen 15, Creatinine 0.82, Estimat Glomerular Filtration Rate 84, BUN/Creatinine Ratio 18, Glucose Level 99, Calcium Level 9.2, Magnesium Level 2.0 A/P-Cardiology Admission Diagnosis Atrial fibrillation with rapid ventricular response Chest pain Palpitation Hypertension Admission Status: Inpatient Order (span 2 midnights) Reason for Inpatient Admission: Atrial fibrillation with rapid ventricular response Assessment/Plan Paroxysmal atrial fibrillation/flutter Had history of ablation in the remote past, patient had a total of 4 ablation procedures last procedure was done in January 2022, it was an extensive ablation done at that time. Stable had on and off atrial fibrillation and she was seen by Dr. Ferguson, he had adjusted her pacemaker setting for better detection of the atrial fibrillation I recommended titrating the beta-lorna dose. Underwent LENORE with cardioversion in December 05, 2020 and still in sinus rhythm. C/o occasional episode of palpitations. Pacemaker sensitivity was adjusted by Dr. Ferguson. Patient was intolerant to amiodarone, Multaq, reports she failed Sotalol, Tikosyn, Flecainide Intolerant to metoprolol due to generalized fatigue. She was referred to for evaluation, seen by Dr. Sanon. 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 Was hospitalized for 2 weeks, recovering slowly. Underwent cardioversion in February 2022 She had another electrical cardioversion done in May 2022. Patient was started on propafenone 150 mg every 8 hours in May 2022, patient only took it for one month. She is back in AF with RVR. Patient was admitted to ICU and started on Cardizem drip, rate is still borderline tachycardic, was hypotensive last night Educated about restarting propafenone Patient was off anticoagulation last week for dental work-up, will proceed with LENORE and electrical cardioversion 2D echo was done on May 30, 2022 with normal LV size, EF 55 to 60%, PA pressure 20 mmHg Sinus node dysfunction, history of Medtronic dual-chamber pacemaker, functioning normally. Had it implanted in [place], continue to monitor at this time Generalized fatigue and loss of energy. Chronic, had been since I met her. Patient requested to stop Toprol which was done in the past. Lipid profile done on August 26, 2021 showing total cholesterol 168, triglyceride 91, HDL 45, LDL 116. Chest pain, nonspecific etiology, patient was having recurrent chest pain underwent cardiac catheterization on 12/04/2020 showing normal coronaries with normal left ventricular size and function Will plan for LST as outpatient LENORE done on Aug 2021 showing normal left ventricular size, left atrium is mildly dilated, no clot or thrombus, mild mitral regurgitation History of hiatal hernia, had repair surgery done at [facility], epigastric pain, loss of appetite, had CT abdomen done in the ER on 03/17/21 showing abnormal wall thickening in the region of the GE junction and prox stomach with multiple prominent enlarged superior mesenteric and paraesophageal lymph nodes most concerning for GE junction or prox gastric malignancy. Had EGD with Dr Valles Generalized fatigue and loss of energy. Hypothyroidism, followed and managed by primary care physician COPD, maintained on bronchodilator. Followed and managed by primary care physician Status post Covid 19 infection in June 2020, still complaining of some dyspnea and fatigue since that infection Nonobstructive carotid artery stenosis per carotid duplex done November 2021. Recent kidney stone, underwent cystoscopy and right ureteral stone manipulation and insertion of right double-J with Dr. Jenkins on 02/06/22. s/p stent retrieval ERIKA DE LA ROSA MD Oct 14, 2022 06:50
[2022-10-14] MEDS ORDERED: NS IV 500 ML 500 ML IV SCH (07:00)
[2022-10-14] MEDS ORDERED: LIDOCAINE 2% VISCOUS 15 ML UDC PO NR (07:30)
[2022-10-14] MEDS ORDERED: PROP150T PO (08:29)
--- NOTE | 2022-10-14 08:29 | Discharge Inst-Post CATH ---
Discharge Inst-CATH/EP Problems Reviewed?: Yes Post Cardiac Cath/EP D/C Inst Follow Up/Plan Appointment with Dr. Ruvalcaba's office in 2 weeks <b>CARDIAC CATH/EP PROCEDURE DISCHARGE INSTRUCTIONS</b> ACTIVITY * Go Home directly and rest. * Limit activity of the leg (or wrist if it was used) for 7 days including aerobics, swimming, jogging, bicycling, etc. * Restrict stair-climbing for 7 days if possible, if not, climb up with your non-cath leg, then bring together on the same step. * Avoid lifting, pushing, pulling or excessive movement of the affected extremity for 7 days. * Customary sexual activity may be resumed after 2 days-use caution not to use a position that strains or causes pain to the affected extremity. * No driving for 24 hours. * NO SMOKING. * Avoid straining for bowel movements for 7 days. * Gentle walking on level ground is allowed. * Returning to work will depend on the type of procedure and the results. Your doctor will discuss this with you. CALL YOUR DOCTOR FOR ANY OF THE FOLLOWING: *If bleeding from the puncture site occurs- Apply gentle pressure to site with clean cloth and call your doctor or EMS. * If a knot or lump forms under the skin, increases in size, or causes pain. * If bruising appears to be worsening or moving further down your leg instead of disappearing. * Temperature above 101 F. CARE OF YOUR GROIN INCISION; * Bruising or purple discoloration of the skin near the puncture site is common. * You may shower only, no bathtub bathing for 5 days. Be careful to avoid slipping as your leg may feel stiff. * If a closure device was used on your femoral artery, please see the attached guide regarding care of the device and your leg. * Leave dressing on FOR 24 hours. CARE OF YOUR WRIST INCISION; * Bruising or purple discoloration of the skin near the puncture site is common. * You may shower. * DO NOT submerge wrist. * Leave dressing on FOR 24 hours. ERIKA RUVALCABA MD Oct 14, 2022 08:29
--- NOTE | 2022-10-14 08:37 | Cardioversion ---
Cardioversion PROCEDURE PHYSICIAN: Erika Ruvalcaba DATE OF PROCEDURE: 10/14/22 DIRECT EXTERNAL ELECTRICAL CARDIOVERSION: Indications: Atrial flutter with rapid ventricular rate Preoperative diagnoses: Atrial flutter with rapid ventricular rate Postoperative diagnosis: Sinus rhythm, Successful Electrical Cardioversion History: 57-year-old lady admitted with atrial fibrillation/flutter with rapid ventricular response and chest pain, started on Cardizem drip, underwent LENORE showed no clot or thrombus. 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 Electrical cardioversion was carried out with anesthesia support with propofol. 200 joules of synchronized shock was delivered through external patches which promptly restored sinus rhythm. The patient tolerated the procedure well. Conclusions: Successful electrical cardioversion terminating atrial flutter Final Diagnosis: Paroxysmal atrial flutter Palpitation Chest pain Hypertension ERIKA RUVALCABA MD Oct 14, 2022 08:37
[2022-10-14] MEDS ORDERED: PANTOPRAZOLE 40 MG (PROTONIX) TAB PO SCH (09:00)
[2022-10-14 16:53] VITALS: BP 107/72
== END 2022-10-14 15:35 | disposition home or self-care (01) | DRG 310 ==
LOC: ICU 14:08
PROVIDERS: ADMIT Internal Medicine Cardiovascular Disease; ATTEND Internal Medicine Cardiovascular Disease
PROC: 5A2204Z Restoration of Cardiac Rhythm, Single (ICD-10-PCS; principal; 2022-10-14)
DX: I48.0 Paroxysmal atrial fibrillation (principal); I48.92 Unspecified atrial flutter; Z95.0 Presence of cardiac pacemaker; K21.9 Gastro-esophageal reflux disease without esophagitis; E03.9 Hypothyroidism, unspecified; Z85.038 Personal history of other malignant neoplasm of large intestine; F43.10 Post-traumatic stress disorder, unspecified; F32.A Depression, unspecified; I10 Essential (primary) hypertension; I49.5 Sick sinus syndrome; Z86.16 Personal history of COVID-19; I65.29 Occlusion and stenosis of unspecified carotid artery
CPT/HCPCS: 36415; 80048; 83735; 85027; 87081; 93005; 93312; 93320; 93325

== ENCOUNTER → 2022-11-12 | Outpatient (CLI) | payer BC ==
[~2022-11-12] VITALS: Ht 162 cm; Wt 87.0 kg
[~2022-11-12] MED LIST changes: +CATHETER FLUSH 10 ML SYR IVP PRN; +DOCU-143 PO; +POTA-177 PO; +PROP150T PO; +REGADENOSON 0.4 MG/5 ML SYR (LEXISCAN) IV ONE
[2022-11-12 16:30] VITALS: BP 144/97
--- NOTE | 2022-11-12 16:30 | Cardiology Stress Test Report ---
Stress Test Report Date of Procedure/Referring: Date of Procedure: November 12, 2022 PCP Jimy Nunn MD Admitting Physician Admitting Physician: Attending Physician: Teresa Meléndez Baseline Heart Rate: 72 Baseline Blood Pressure: Blood Pressure Systolic: 144 Blood Pressure Diastolic: 97 Baseline EKG: Baseline EKG: NSR Summary After explaining the procedure to the patient, she signed a consent and then brought to the stress nuclear laboratory. Patient received 0.4 mg Lexiscan for stress test, ECG, heart rate and blood pressure were monitored continuously. Resting and stress dose of radio tracer were injected, imaging was acquired and reviewed in short axis, horizontal long axis and vertical long axis views. TID: 0.94 SSS: 9 SDS: 9 EF: 66 Patient tolerated Lexiscan well Reversible ischemia involving the mid to apical anterior wall and anterolateral wall Normal left ventricular size, ejection fraction 66% Copy Copies To 1: JIMY NUNN MD, BASHAR J MD November 12, 2022 16:30
== END ==
LOC: CARD 07:30
PROVIDERS: ATTEND Physician Assistant
DX: I48.91 Unspecified atrial fibrillation (principal)
CPT/HCPCS: 78452; 93017; A9502

== ENCOUNTER 2022-11-14 14:07 | Day surgery (SDC) | payer BC ==
[2022-11-14] VITALS (8 sets, daily range): BP systolic 98–124; BP diastolic 61–74
[~2022-11-14] VITALS: Ht 162 cm; Wt 85.0 kg
[~2022-11-14 14:07] MED LIST changes: -CATHETER FLUSH 10 ML SYR IVP PRN; -POTA-177 PO; -REGADENOSON 0.4 MG/5 ML SYR (LEXISCAN) IV ONE
[2022-11-14 14:32] LABS: BASOPHILS % (AUTO) 0 % (0-10); EOSINOPHILS # (AUTO) 0.1 10^3/uL (0.0-0.3); EOSINOPHILS % (AUTO) 1 % (0-10); HEMATOCRIT 42 % (35-52); HEMOGLOBIN 14.1 g/dL (11.5-16.0); LYMPHOCYTES # (AUTO) 1.9 X 10^3 (1.0-4.0); LYMPHOCYTES % (AUTO) 12 % (12-44); MEAN CORPUSCULAR HEMOGLOBIN 29 pg (25-34); MEAN CORPUSCULAR HGB CONC 34 g/dL (32-36); MEAN CORPUSCULAR VOLUME 86 fL (80-99); MEAN PLATELET VOLUME 10.2 fL (9.0-12.2); MONOCYTES # (AUTO) 0.7 X 10^3 (0.0-1.0); MONOCYTES % (AUTO) 4 % (0-12); NEUTROPHILS % (AUTO) 83 % (42-75); PLATELET COUNT 253 10^3/uL (130-400); WHITE BLOOD COUNT 15.7 10^3/uL (4.3-11.0)
[2022-11-14 14:39] LABS: ALBUMIN 4.9 GM/DL (3.2-4.5); CHLORIDE 104 MMOL/L (98-107); POTASSIUM 3.3 MMOL/L (3.6-5.0); SODIUM 139 MMOL/L (135-145)
[2022-11-14 14:41] LABS: CALCIUM 9.7 MG/DL (8.5-10.1)
[2022-11-14 14:42] LABS: GLUCOSE 85 MG/DL (70-105); INR 2.5 (0.8-1.4); PROTHROMBIN TIME PATIENT 27.2 SEC (12.2-14.7); TOTAL PROTEIN 8.2 GM/DL (6.4-8.2)
--- NOTE | 2022-11-14 14:42 | Diagnostic Imaging Report ---
INDICATION: Chest pain. COMPARISON: 10/13/2022. FINDINGS: Single frontal radiographic view of the chest was obtained and shows stable cardiac silhouette and pulmonary vasculature. Lungs show persistent asymmetric elevation of the right hemidiaphragm with associated right basilar atelectasis. Lungs are otherwise clear. There is no large effusion or pneumothorax on either side. Left-sided dual-lead pacemaker is noted. Osseous structures show no gross acute abnormalities. IMPRESSION: 1. No new acute cardiopulmonary process. Dictated by: Dictated on workstation # [id number]
[2022-11-14 14:43] LABS: CARBON DIOXIDE 25 MMOL/L (21-32)
[2022-11-14 14:44] LABS: BILIRUBIN,TOTAL 0.9 MG/DL (0.1-1.0)
[2022-11-14 14:45] LABS: ALKALINE PHOSPHATASE 100 U/L (40-136); CREATININE SERUM 0.87 MG/DL (0.60-1.30); GFR ESTIMATED 79
[2022-11-14 14:47] LABS: BUN/CREATININE RATIO 14
[2022-11-14 14:48] LABS: ALANINE AMINOTRANSFERASE 38 U/L (0-55); MAGNESIUM 1.9 MG/DL (1.6-2.4)
[2022-11-14 14:52] LABS: LYMPHOCYTES % (MANUAL) 14 %; MONOCYTES % (MANUAL) 3 %; NEUTROPHILS % (MANUAL) 83 %; RBC MORPH NORMAL
--- NOTE | 2022-11-14 14:58 | ED Chest Pain ---
General Chief Complaint: Chest Pain Stated Complaint: CHEST PAINS Nursing Triage Note: STRESS TEST ON THU AND HAS HAD CHEST PAIN SINCE. SHE CALLED DR RUVALCABA'S OFFICE WHO TOLD HER TO COME TO THE ER. Source: patient Exam Limitations: no limitations (PORSCHE MARIE APRN) History of Present Illness Date Seen by Provider: November 14, 2022 Time Seen by Provider: 14:25 Initial Comments 57-year-old female presents to the ED with complaints of midsternal chest pain since her stress test on 11/12/22. She states that the pain started after the stress test, states that it is constant, but fluctuates in intensity. States that she developed today it has been more intense. She states the pain is a pressure in her chest, and radiates to her back, states the pain in her back is sharp. She also states pain radiates to left chest. States pain is worse with exertion, reports sweating with chest pain. Patient has chronic shortness of air, but states that it is felt worse over the last couple days. She denies fevers, abdominal pain, nausea, vomiting. She reports that she had a lot of diarrhea after her stress test, states she has not had any today. She reports that earlier she had pain in her right groin, states that pain was dissipated. Past medical history includes hypertension, heart failure, atrial fibrillation, hiatal hernia, paralyzed diaphragm, fatty liver, pacemaker. (PORSCHE MARIE APRN) Allergies and Home Medications Allergies Coded Allergies: Latex, Natural Rubber (Verified Allergy, Intermediate, Shortness of Breath, PARALIZED DIAHPHRAM, 02/17/22) Patient Home Medication List Home Medication List Reviewed: Yes (PORSCHE MARIE APRN) Albuterol Sulfate (Albuterol Sulfate) 2.5 Mg/3 Ml (0.083 %) Vial.neb, 3 ML NEB Q4H PRN for SHORTNESS OF BREATH, (Reported) Entered as Reported by: LEOBARDO CARLIN on 03/10/22 7508 Last Action: Reviewed Clonidine HCl (Clonidine HCl) 0.1 Mg Tablet, 0.1 MG PO BID PRN for BP OVER 140/90, (Reported) Entered as Reported by: LEOBARDO CARLIN on 08/26/21 1043 Last Action: Reviewed Diazepam (Diazepam) 5 Mg Tablet, 5 MG PO BID PRN for ANXIETY, (Reported) Entered as Reported by: LEOBARDO CARLIN on 08/26/21 1043 Last Action: Reviewed Diltiazem HCl (Diltiazem 24Hr ER) 180 Mg Cap.er.24h, 180 MG PO DAILY Prescribed by: KINGSLEY DAY on 10/11/22 1033 Last Action: Reviewed Docusate Sodium (Colace) 100 Mg Capsule, 100 MG PO BID, (Reported) Entered as Reported by: RAJAN SWANN on 10/13/22 1711 Last Action: Reviewed Fish Oil/Dha/Epa (Fish Oil 1,200 mg Fish Oil) 1,200 Mg-144 Mg-216 Mg Capsule, 1 EACH PO HS, (Reported) Entered as Reported by: LEOBARDO CARLIN on 03/10/22 155 Last Action: Reviewed Furosemide (Furosemide) 40 Mg Tablet, 40 MG PO DAILY, (Reported) Entered as Reported by: LEOBARDO CARLIN on 03/10/22 1558 Last Action: Reviewed Levocetirizine Dihydrochloride (Levocetirizine Dihydrochloride) 5 Mg Tablet, 5 MG PO HS, (Reported) Entered as Reported by: KERLINE JORGENSEN on 05/30/22 1012 Last Action: Reviewed Meclizine HCl (Meclizine HCl) 25 Mg Tablet, 25 MG PO Q6H PRN for dizziness Prescribed by: ANDREE BUTT on 10/02/22 1045 Last Action: Reviewed Pantoprazole Sodium (Pantoprazole Sodium) 40 Mg Tablet.dr, 40 MG PO HS, (Reported) Entered as Reported by: MYRTLE VANN on 02/04/22 1240 Last Action: Reviewed Potassium Chloride (Potassium Chloride) 10 Meq Tab.er.prt, 10 MEQ PO DAILY Prescribed by: ANNAMARIE MCDONNELL on 11/15/22 1029 Propafenone HCl (Propafenone HCl) 150 Mg Tablet, 150 MG PO TID Prescribed by: ERIKA RUVALCABA on 10/14/22 0829 Last Action: Reviewed Rivaroxaban (Xarelto) 20 Mg Tablet, 20 MG PO 1900, (Reported) Entered as Reported by: LEOBARDO CARLIN on 03/10/22 1558 Last Action: Reviewed Sumatriptan Succinate (Sumatriptan Succinate) 50 Mg Tablet, 50 MG PO UD PRN for MIGRAINE, (Reported) Entered as Reported by: LEOBARDO CARLIN on 03/10/221557 Last Action: Reviewed Vitamin E Mixed (Vitamin E) 1,000 Unit Capsule, 1,000 UNIT PO HS, (Reported) Entered as Reported by: LEOBARDO CARLIN on 03/10/221557 Last Action: Reviewed [Vit C/Vit D/Zinc] , 1 EA PO HS, (Reported) Entered as Reported by: LEOBARDO CARLIN on 03/10/221557 Last Action: Reviewed Review of Systems Review of Systems Constitutional: see HPI (PORSCHE MARIE APRN) Past Wygnvos-Laopiz-Ysdgka Hx Patient Social History Tobacco Use?: No Substance use?: No Alcohol Use?: Yes Alcohol Frequency: Rarely (PORSCHE MARIE APRN) Immunizations Up To Date Tetanus Booster (TDap): Less than 5yrs PED Vaccines UTD: Yes First/Initial COVID19 Vaccinat: NONE Second COVID19 Vaccination Arley: NONE Third COVID19 Vaccination Date: NONE (PORSCHE MARIE APRN) Seasonal Allergies Seasonal Allergies: Yes (PORSCHE MARIE APRN) Past Medical History Surgery/Hospitalization HX: pacemaker, CHF, A-fib, Cardiac cath, 4 cardiac ablasions, hysterectomy, appendectomy, tonsillectomy, titi, hiatal hernia, ureteral stent, d&c,BLADDER SLINGafib, chf, copd, renal stones, htn, high cholesterol, liver disease,barrettsesophagus, hypothryoidism Surgeries: Yes Abdominal, Appendectomy, Bladder Surgery, Cardiac, Gallbladder, Hysterectomy, Pacemaker, Renal, Tonsillectomy Respiratory: Yes (HX PARALYZED DIAPHRAGM) Pneumonia, COPD Currently Using CPAP: No Currently Using BIPAP: No Cardiac: Yes (PACEMAKER) Atrial Fibrillation, Hypertension Neurological: Yes (Right diaphragmatic paralysis) Stroke Female 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 Disorders: Denies 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 History: Hysterectomy Sexually Transmitted Disease: No Genitourinary: Yes Kidney Stones Gastrointestinal: Yes Gastroesophageal Reflux, Reina's Esophagus, Hemorrhoids, Hiatal Hernia Musculoskeletal: Yes Back Injury Endocrine: Yes Hypothyroidsim HEENT: No Loss of Vision: Denies Hearing Impairment: Denies Cancer: Yes Colon Psychosocial: Yes PTSD, Depression Integumentary: Yes Psoriasis Blood Disorders: No (PORSCHE MARIE APRN) Family Medical History Colon cancer No Pertinent Family Hx Noncontributory (PORSCHE MARIE APRN) Physical Exam Vital Signs Vital Signs - First Documented 11/14/22 14:20 Temp 36.6 Pulse 78 Resp 16 B/P (MAP) 137/76 (96) Pulse Ox 100 O2 Delivery Room Air (KINGSLEY CURTIS MD) Vital Signs Capillary Refill : Less Than 3 Seconds (PORSCHE MARIE APRN) Height, Weight, BMI Height: '" Weight: lbs. oz. kg; 32.00 BMI Method: General Appearance: No Apparent Distress, WD/WN Neck: Non Tender, Supple Respiratory: Lungs Clear, Normal Breath Sounds, No Accessory Muscle Use, No Respiratory Distress Cardiovascular: Regular Rate, Rhythm, No Edema, Normal Peripheral Pulses (Radial pulses equal) Extremity: Normal Inspection, Normal Range of Motion, No Pedal Edema Neurologic/Psychiatric: Alert, Normal Mood/Affect Skin: Normal Color, Warm/Dry (PORSCHE MARIE APRN) Progress/Results/Core Measures Results/Orders Lab Results Laboratory Tests Test 11/14/22 14:15 Range/Units White Blood Count 15.7 H 4.3-11.0 10^3/uL Red Blood Count 4.84 3.80-5.11 10^6/uL Hemoglobin 14.1 11.5-16.0 g/dL Hematocrit 42 35-52 % Mean Corpuscular Volume 86 80-99 fL Mean Corpuscular Hemoglobin 29 25-34 pg Mean Corpuscular Hemoglobin Concent 34 32-36 g/dL Red Cell Distribution Width 13.2 10.0-14.5 % Platelet Count 253 130-400 10^3/uL Mean Platelet Volume 10.2 9.0-12.2 fL Immature Granulocyte % (Auto) 0 % Neutrophils (%) (Auto) 83 H 42-75 % Lymphocytes (%) (Auto) 12 12-44 % Monocytes (%) (Auto) 4 0-12 % Eosinophils (%) (Auto) 1 0-10 % Basophils (%) (Auto) 0 0-10 % Neutrophils # (Auto) 13.0 H 1.8-7.8 X 10^3 Lymphocytes # (Auto) 1.9 1.0-4.0 X 10^3 Monocytes # (Auto) 0.7 0.0-1.0 X 10^3 Eosinophils # (Auto) 0.1 0.0-0.3 10^3/uL Basophils # (Auto) 0.0 0.0-0.1 10^3/uL Immature Granulocyte # (Auto) 0.0 0.0-0.1 10^3/uL Neutrophils % (Manual) 83 % Lymphocytes % (Manual) 14 % Monocytes % (Manual) 3 % Blood Morphology Comment NORMAL Prothrombin Time 27.2 H 12.2-14.7 SEC INR Comment 2.5 H 0.8-1.4 Activated Partial Thromboplast Time 52 H 24-35 SEC D-Dimer <= 0.27 0.00-0.49 UG/ML Sodium Level 139 135-145 MMOL/L Potassium Level 3.3 L 3.6-5.0 MMOL/L Chloride Level 104 98-107 MMOL/L Carbon Dioxide Level 25 21-32 MMOL/L Anion Gap 10 5-14 MMOL/L Blood Urea Nitrogen 12 7-18 MG/DL Creatinine 0.87 0.60-1.30 MG/DL Estimat Glomerular Filtration Rate 79 BUN/Creatinine Ratio 14 Glucose Level 85 70-105 MG/DL Calcium Level 9.7 8.5-10.1 MG/DL Corrected Calcium 8.5-10.1 MG/DL Magnesium Level 1.9 1.6-2.4 MG/DL Total Bilirubin 0.9 0.1-1.0 MG/DL Aspartate Amino Transf (AST/SGOT) 29 5-34 U/L Alanine Aminotransferase (ALT/SGPT) 38 0-55 U/L Alkaline Phosphatase 100 40-136 U/L Troponin I < 0.028 <0.028 NG/ML B-Type Natriuretic Peptide 22.0 <100.0 PG/ML Total Protein 8.2 6.4-8.2 GM/DL Albumin 4.9 H 3.2-4.5 GM/DL (KINGSLEY CURTIS MD) Vital Signs/I&O 11/14/22 14:20 Temp 36.6 Pulse 78 Resp 16 B/P (MAP) 137/76 (96) Pulse Ox 100 O2 Delivery Room Air (KINGSLEY CURTIS MD) Blood Pressure Mean: 96 Progress Progress Note : Time: 15:02 Progress Note Patient seen evaluated, resting comfortably in bed, no acute distress. Work-up initiated including CBC, CMP, troponin, magnesium, coags, BNP, D-dimer, chest x- ray, EKG. EKG shows new minimal ST depression in V4 and V5. T wave inversion in V1 through V6 appears the same as previous. 1535 Labs and chest x-ray reviewed. CBC shows elevated WBCs 15.7, elevated neutrophils 93%. CMP shows decreased potassium 3.3. Troponin negative. BNP normal. Coags show PT elevated 27.2, INR elevated 2.5, APTT elevated 52. D- dimer negative. Chest x-ray shows no acute cardiopulmonary process. I called and spoke with Dr. Ruvalcaba, patient's typing teacher, he would like me to call Dr. Mcdonnell since Dr. Mcdonnell is the one on-call today. Dr. Ruvalcaba thinks patient may need cardiac cath. I spoke with Dr. Mcdonnell, cardiology. He recommends starting metoprolol 50 mg now and daily, giving dose of 324 of aspirin now and 81 mg daily, starting Lovenox weight-based every 12 hours if patient has not taken her Xarelto today. He states patient can have a cardiac diet tonight, and have clear liquids for breakfast. He also recommends giving nitro at this time. He would like the hospitalist to admit. 1552 I called and spoke with Dr. Sorensen, hospitalist. She agrees to admit. supervisor lens generating called, she states that Dr. Mcdonnell told her that he would like to take patient to the biodiesel production associate tonight. She is going to call in the cath team. (PORSCHE MARIE APRN) Initial ECG Impression Date: November 14, 2022 (PORSCHE MARIE APRN) Departure Communication (Admissions) Time/Spoke to Admitting Phy: 15:52 Dr. Sorensen, hospitalist, see progress note Time/Spoke to Consulting Phy: 15:26 Dr. Ruvalcaba, patient's typing teacher. I also spoke with Dr. Mcdonnell, cardiology material controller. See progress note. (PORSCHE MARIE APRN) Impression Primary Impression: ACS (acute coronary syndrome) Additional Impression: Unstable angina Disposition: ADMITTED INPATIENT Condition: Stable Admissions Decision to Admit Reason: Admit from ER (General) Decision to Admit/Date: November 13, 2022 Time/Decision to Admit Time: 15:26 (PORSCHE MARIE APRN) Departure-Patient Inst. Referrals: JIMY BENNETT MD (PCP/Family) Primary Care Physician Scripts Potassium Chloride (Potassium Chloride) 10 Meq Tab.er.prt 10 MEQ PO DAILY, #30 TAB 3 Refills Prov: ANNAMARIE MCDONNELL MD [facility] 11/15/22 ATTENDING PHYSICIAN NOTE: I was physically present as attending physician in the emergency department during the care of this patient, but I was not directly involved in the decision making or delivery of care for this patient. (KINGSLEY CURTIS MD) PORSCHE MARIE APRN November 14, 2022 14:58 KINGSLEY CURTIS MD November 16, 2022 21:21
[2022-11-14] MEDS ORDERED: meTOproloL SUCCINATE 50 MG (TOPROL XL) TAB PO SCH (15:45)
[2022-11-14] MEDS ORDERED: ASPIRIN 81 MG CHEW (CHILDREN'S ASA) PO ONE (15:45)
[2022-11-14] MEDS ORDERED: MIDAZOLAM 5 MG/5 ML (VERSED) VIAL ONE (15:49)
[2022-11-14] MEDS ORDERED: fentaNYL INJ 100 MCG/2 ML AMP ONE (15:49)
[2022-11-14] MEDS: NITROGLYCERIN 0.4 MG SL TABS BTL 25'S SL PRN ×2 (15:49→15:56)
[2022-11-14] MEDS ORDERED: NS IV 1000 ML 1,000 ML ONE (15:50)
[2022-11-14] MEDS ORDERED: HEParin (CATH LAB) 2,000 ML IV ONE (15:50)
[2022-11-14] MEDS ORDERED: LIDOCAINE 1% INJ 20 ML VIAL ONE (15:50)
[2022-11-14] MEDS ORDERED: HEParin 1000 UNIT/ML (10ML VIAL) FOR BOLUS ONE (15:51)
[2022-11-14] MEDS ORDERED: EPTIFIBATIDE BOLUS 10 ML IV ONE (15:52)
[2022-11-14] MEDS ORDERED: EPTIFIBATIDE DRIP 0 ML IV ONE (15:52)
[2022-11-14] MEDS ORDERED: KCL 20 MEQ TAB (K-DUR) PO ONE (16:00)
--- NOTE | 2022-11-14 16:18 | Cardiology History & Physical ---
HPI-Cardiology Cardiology H&P Date of Admission 11-14-22 Primary Care Physician Admitting Physician: Sathya Attending Physician: Sathya Attending Physician Consulting Physician HPI CC: Chest pain [id number] Hx Patient Social History 2nd Hand Smoke Exposure: No Have you traveled recently?: No Alcohol Use?: Yes Immunizations Up To Date Tetanus Booster (TDap): Less than 5yrs Date of Pneumonia Vaccine: Feb 05, 2020 Date of Influenza Vaccine: May 04, 2020 Past Medical History PMH As described under Assessment. Family Medical History Family Medical History: No reported family h/o CAD. Family History: Colon cancer Allergies and Home Medications Allergies Coded Allergies: Latex, Natural Rubber (Verified Allergy, Intermediate, Shortness of Breath, PARALIZED DIAHPHRAM, 02/17/22) Patient Home Medication List Home Medication List Reviewed: Yes Albuterol Sulfate (Albuterol Sulfate) 2.5 Mg/3 Ml (0.083 %) Vial.neb, 3 ML NEB Q4H PRN for SHORTNESS OF BREATH, (Reported) Entered as Reported by: LEOBARDO CARLIN on 03/10/22 1558 Clonidine HCl (Clonidine HCl) 0.1 Mg Tablet, 0.1 MG PO BID PRN for BP OVER 140/90, (Reported) Entered as Reported by: LEOBARDO CARLIN on 08/26/21 1043 Diazepam (Diazepam) 5 Mg Tablet, 5 MG PO BID PRN for ANXIETY, (Reported) Entered as Reported by: LEOBARDO CARLIN on 08/26/21 1043 Diltiazem HCl (Diltiazem 24Hr ER) 180 Mg Cap.er.24h, 180 MG PO DAILY Prescribed by: KINGSLEY DAY on 10/11/22 1033 Docusate Sodium (Colace) 100 Mg Capsule, 100 MG PO BID, (Reported) Entered as Reported by: RAJAN SWANN on 10/13/22 1711 Fish Oil/Dha/Epa (Fish Oil 1,200 mg Fish Oil) 1,200 Mg-144 Mg-216 Mg Capsule, 1 EACH PO HS, (Reported) Entered as Reported by: LEOBARDO CARLIN on 03/10/22 1558 Furosemide (Furosemide) 40 Mg Tablet, 40 MG PO DAILY, (Reported) Entered as Reported by: LEOBARDO CARLIN on 03/10/22 1558 Levocetirizine Dihydrochloride (Levocetirizine Dihydrochloride) 5 Mg Tablet, 5 MG PO HS, (Reported) Entered as Reported by: KERLINE JORGENSEN on 05/30/22 1012 Meclizine HCl (Meclizine HCl) 25 Mg Tablet, 25 MG PO Q6H PRN for dizziness Prescribed by: ANDREE BUTT on 10/02/22 1045 Pantoprazole Sodium (Pantoprazole Sodium) 40 Mg Tablet.dr, 40 MG PO HS, (Reported) Entered as Reported by: MYRTLE VANN on 02/04/22 1240 Propafenone HCl (Propafenone HCl) 150 Mg Tablet, 150 MG PO TID Prescribed by: ERIKA RUVALCABA on 10/14/22 0829 Rivaroxaban (Xarelto) 20 Mg Tablet, 20 MG PO 1900, (Reported) Entered as Reported by: LEOBARDO CARLIN on 03/10/22 1558 Sumatriptan Succinate (Sumatriptan Succinate) 50 Mg Tablet, 50 MG PO UD PRN for MIGRAINE, (Reported) Entered as Reported by: LEOBARDO CARLIN on 03/10/22 1558 Vitamin E Mixed (Vitamin E) 1,000 Unit Capsule, 1,000 UNIT PO HS, (Reported) Entered as Reported by: LEOBARDO CARLIN on 03/10/22 1558 [Vit C/Vit D/Zinc] , 1 EA PO HS, (Reported) Entered as Reported by: LEOBARDO CARLIN on 03/10/22 1558 Physical Exam-Cardiology Physical Exam Vital Signs/I&O 11/14/22 11/14/22 14:20 16:00 Temp 36.6 Pulse 78 74 Resp 16 16 B/P (MAP) 137/76 (96) 119/78 Pulse Ox 100 95 O2 Delivery Room Air Room Air Capillary Refill : Less Than 3 Seconds Data Review Labs Laboratory Tests 11/14/22 14:15: White Blood Count 15.7H, Red Blood Count 4.84, Hemoglobin 14.1, Hematocrit 42, Mean Corpuscular Volume 86, Mean Corpuscular Hemoglobin 29, Mean Corpuscular Hemoglobin Concent 34, Red Cell Distribution Width 13.2, Platelet Count 253, Mean Platelet Volume 10.2, Immature Granulocyte % (Auto) 0, Neutrophils (%) (Auto) 83H, Lymphocytes (%) (Auto) 12, Monocytes (%) (Auto) 4, Eosinophils (%) (Auto) 1, Basophils (%) (Auto) 0, Neutrophils # (Auto) 13.0H, Lymphocytes # (Auto) 1.9, Monocytes # (Auto) 0.7, Eosinophils # (Auto) 0.1, Basophils # (Auto) 0.0, Immature Granulocyte # (Auto) 0.0, Neutrophils % (Manual) 83, Lymphocytes % (Manual) 14, Monocytes % (Manual) 3, Blood Morphology Comment NORMAL, Prothrombin Time 27.2H, INR Comment 2.5H, Activated Partial Thromboplast Time 52H, D-Dimer <= 0.27, Sodium Level 139, Potassium Level 3.3L, Chloride Level 104, Carbon Dioxide Level 25, Anion Gap 10, Blood Urea Nitrogen 12, Creatinine 0.87, Estimat Glomerular Filtration Rate 79, BUN/Creatinine Ratio 14, Glucose Level 85, Calcium Level 9.7, Corrected Calcium , Magnesium Level 1.9, Total Bilirubin 0.9, Aspartate Amino Transf (AST/SGOT) 29, Alanine Aminotransferase (ALT/SGPT) 38, Alkaline Phosphatase 100, Troponin I < 0.028, B-Type Natriuretic Peptide 22.0, Total Protein 8.2, Albumin 4.9H A/P-Cardiology Assessment/Admission Diagnosis Chest pain - MPI of 11-12-[address] Ruvalcaba had indicated anterolateral ischemia (SDS 9) Paroxysmal atrial fibrillation/flutter - s/p multiple ablations. 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 - s/p multiple elec CV, last in October [address] Ruvalcaba - intolerant to amiodarone, Multaq, reports she failed Sotalol, Tikosyn, Flecainide; propafenone reportedly ineffective in controlling her A Fib - intolerant to metoprolol due to generalized fatigue. - 2D echo was done on May 30, 2022 with normal LV size, EF 55 to 60%, PA pressure 20 mmHg Sinus node dysfunction, history of [employer] dual-chamber pacemaker, functioning normally. Had it implanted in [place], Dr Ruvalcaba monitoring Generalized fatigue and loss of energy, chronic H/o mild hyperlipidemia - Lipid profile done on August 26, 2021 showing total cholesterol 168, triglyceride 91, HDL 45, LDL 116. History of hiatal hernia, had repair surgery done at Hypothyroidism, followed and managed by primary care physician COPD, maintained on bronchodilator. Followed and managed by primary care physician Nonobstructive carotid artery stenosis per carotid duplex done November 2021., monitored by Dr ruvalcaba H/o urolithiasis Admission Status: Observation Discussion and Recomendations * Given continuing chest discomfort and significant ischemia described on recent MPI by Dr. Ruvalcaba, it appears reasonable to proceed with card cath * I discussed the rationale, procedure, risks, benefits, and potential complications of card cath and possible ad hoc PCI with her in detail. She understands and provides informed consent * We discussed the site of access. She doesn't want radial cath. States had "blood clot" after an earlier cath through the wrist. She notes bilateral groin and thigh/leg discomfort that is moderate and intermittent. She does not report any leg discoloration. She states it would be ok for us to proceed through the groin ANNAMARIE BAUMANN MD FACP FAC CCDS November 14, 2022 16:18
--- NOTE | 2022-11-14 16:52 | Cardiology History & Physical ---
HPI-Cardiology Cardiology H&P Date of Admission 11-14-22 Primary Care Physician Admitting Physician: Sathya Attending Physician: Sathya Attending Physician Consulting Physician HPI CC: Chest pain HPI 57 yo with waxing and waning, mid sternal discomfort since yesterday, moderate, pressure-like, radiating to back, worse with exertion, associated with some shortness of breath. Generally feels unwell Review of Systems-Cardiology Review of Systems Constitutional: malaise, tiredness; No weight loss, No weight gain Eyes: No vision change Ears/Nose/Throat: ear discharge; No nasal drainage, No recent hearing loss, No ulcerations Gastrointestinal: No diarrhea, No nausea, No vomiting, No stool coloration changes Genitourinary: No dysuria, No hematuria, No urine frequency changes Musculoskeletal: No back pain; other (pain in both groins and leg/thighs, more on the right) Skin: No rash, No ulcerations Psychiatric/Neurological: No seizure, No focal weakness, No syncope Hematologic: No bleeding abnormalities DEP-Zfirab-Xjauzj Hx Patient Social History 2nd Hand Smoke Exposure: No Have you traveled recently?: No Alcohol Use?: Yes Immunizations Up To Date Tetanus Booster (TDap): Less than 5yrs Date of Pneumonia Vaccine: Feb 05, 2020 Date of Influenza Vaccine: May 04, 2020 Past Medical History PMH As described under Assessment. Family Medical History Family Medical History: No reported family h/o CAD. Family History: Colon cancer Allergies and Home Medications Allergies Coded Allergies: Latex, Natural Rubber (Verified Allergy, Intermediate, Shortness of Breath, PARALIZED DIAHPHRAM, 02/17/22) Patient Home Medication List Home Medication List Reviewed: Yes Albuterol Sulfate (Albuterol Sulfate) 2.5 Mg/3 Ml (0.083 %) Vial.neb, 3 ML NEB Q4H PRN for SHORTNESS OF BREATH, (Reported) Entered as Reported by: LEOBARDO CARLIN on 03/10/22 1558 Clonidine HCl (Clonidine HCl) 0.1 Mg Tablet, 0.1 MG PO BID PRN for BP OVER 140/90, (Reported) Entered as Reported by: LEOBARDO CARLIN on 08/26/21 1043 Diazepam (Diazepam) 5 Mg Tablet, 5 MG PO BID PRN for ANXIETY, (Reported) Entered as Reported by: LEOBARDO CARLIN on 08/26/21 1043 Diltiazem HCl (Diltiazem 24Hr ER) 180 Mg Cap.er.24h, 180 MG PO DAILY Prescribed by: KINGSLEY DAY on 10/11/22 1033 Docusate Sodium (Colace) 100 Mg Capsule, 100 MG PO BID, (Reported) Entered as Reported by: RAJAN SWANN on 10/13/22 1711 Fish Oil/Dha/Epa (Fish Oil 1,200 mg Fish Oil) 1,200 Mg-144 Mg-216 Mg Capsule, 1 EACH PO HS, (Reported) Entered as Reported by: LEOBARDO CARLIN on 03/10/22 155 Furosemide (Furosemide) 40 Mg Tablet, 40 MG PO DAILY, (Reported) Entered as Reported by: LEOBARDO CARLIN on 03/10/22 155 Levocetirizine Dihydrochloride (Levocetirizine Dihydrochloride) 5 Mg Tablet, 5 MG PO HS, (Reported) Entered as Reported by: KERLINE JORGENSEN on 05/30/22 1012 Meclizine HCl (Meclizine HCl) 25 Mg Tablet, 25 MG PO Q6H PRN for dizziness Prescribed by: ANDREE BUTT on 10/02/22 1045 Pantoprazole Sodium (Pantoprazole Sodium) 40 Mg Tablet.dr, 40 MG PO HS, (Reported) Entered as Reported by: MYRTLE VANN on 02/04/22 1240 Propafenone HCl (Propafenone HCl) 150 Mg Tablet, 150 MG PO TID Prescribed by: ERIKA RUVALCABA on 10/14/22 0829 Rivaroxaban (Xarelto) 20 Mg Tablet, 20 MG PO 1900, (Reported) Entered as Reported by: LEOBARDO CARLIN on 03/10/22 155 Sumatriptan Succinate (Sumatriptan Succinate) 50 Mg Tablet, 50 MG PO UD PRN for MIGRAINE, (Reported) Entered as Reported by: LEOBARDO CARLIN on 03/10/22 155 Vitamin E Mixed (Vitamin E) 1,000 Unit Capsule, 1,000 UNIT PO HS, (Reported) Entered as Reported by: LEOBARDO CARLIN on 03/10/22 155 [Vit C/Vit D/Zinc] , 1 EA PO HS, (Reported) Entered as Reported by: LEOBARDO CARLIN on 03/10/22 155 Physical Exam-Cardiology Physical Exam Vital Signs/I&O 11/14/22 11/14/22 14:20 16:00 Temp 36.6 Pulse 78 74 Resp 16 16 B/P (MAP) 137/76 (96) 119/78 Pulse Ox 100 95 O2 Delivery Room Air Room Air Capillary Refill : Less Than 3 Seconds Constitutional: AAO x 3, well-developed, well-nourished HEENT: EOMI, hearing is well preserved; No xanthelasmas are seen Neck: carotid pulses are 2 + bilaterally, with good upstrokes Respiratory: No accessory muscle use; chest expansion is symmetric, chest is bilaterally symmetric, other (good, bilat air entry) Cardiovascular: regular rate-rhythm, S1 and S2, systolic murmur (soft EVER at card base) Gastrointestinal: No tender; soft; No guarding, No rebound; audible bowel sounds Extremities: No clubbing, No cyanosis, No significant edema Neurologic/Psychiatric: oriented x 3, other (moves all limb equally) Skin: No rash on exposed areas, No ulcerations on exposed areas Data Review Labs Laboratory Tests 11/14/22 14:15: White Blood Count 15.7H, Red Blood Count 4.84, Hemoglobin 14.1, Hematocrit 42, Mean Corpuscular Volume 86, Mean Corpuscular Hemoglobin 29, Mean Corpuscular Hemoglobin Concent 34, Red Cell Distribution Width 13.2, Platelet Count 253, Mean Platelet Volume 10.2, Immature Granulocyte % (Auto) 0, Neutrophils (%) (Aut o) 83H, Lymphocytes (%) (Auto) 12, Monocytes (%) (Auto) 4, Eosinophils (%) (Auto) 1, Basophils (%) (Auto) 0, Neutrophils # (Auto) 13.0H, Lymphocytes # (Auto) 1.9, Monocytes # (Auto) 0.7, Eosinophils # (Auto) 0.1, Basophils # (Auto) 0.0, Immature Granulocyte # (Auto) 0.0, Neutrophils % (Manual) 83, Lymphocytes % (Manual) 14, Monocytes % (Manual) 3, Blood Morphology Comment NORMAL, Prothrombin Time 27.2H, INR Comment 2.5H, Activated Partial Thromboplast Time 52H, D-Dimer <= 0.27, Sodium Level 139, Potassium Level 3.3L, Chloride Level 104, Carbon Dioxide Level 25, Anion Gap 10, Blood Urea Nitrogen 12, Creatinine 0.87, Estimat Glomerular Filtration Rate 79, BUN/Creatinine Ratio 14, Glucose Level 85, Calcium Level 9.7, Corrected Calcium , Magnesium Level 1.9, Total Bilirubin 0.9, Aspartate Amino Transf (AST/SGOT) 29, Alanine Aminotransferase (ALT/SGPT) 38, Alkaline Phosphatase 100, Troponin I < 0.028, B-Type Natriuretic Peptide 22.0, Total Protein 8.2, Albumin 4.9H Laboratory Tests 11/14/22 14:15 A/P-Cardiology Assessment/Admission Diagnosis Chest pain - MPI of 11-12-[address] Ruvalcaba had indicated anterolateral ischemia (SDS 9) Paroxysmal atrial fibrillation/flutter - s/p multiple ablations. Last ablation by Dr Sanon at [facility] January 17, 2022, complicated by diaphragmatic injury and possible phrenic nerve injury. - s/p multiple elec CV, last in October [address] Ruvalcaba - intolerant to amiodarone, Multaq, reports she failed Sotalol, Tikosyn, Flecainide; propafenone reportedly ineffective in controlling her A Fib - intolerant to metoprolol due to generalized fatigue. - 2D echo was done on May 30, 2022 with normal LV size, EF 55 to 60%, PA pressure 20 mmHg Sinus node dysfunction, history of Medtronic dual-chamber pacemaker, functioning normally. Had it implanted in [place], Dr Ruvalcaba monitoring Generalized fatigue and loss of energy, chronic H/o mild hyperlipidemia - Lipid profile done on August 26, 2021 showing total cholesterol 168, triglyceride 91, HDL 45, LDL 116. History of hiatal hernia, had repair surgery done at Hypothyroidism, followed and managed by primary care physician COPD, maintained on bronchodilator. Followed and managed by primary care physician Nonobstructive carotid artery stenosis per carotid duplex done November 2021., monitored by Dr ruvalcaba H/o urolithiasis Admission Status: Observation Discussion and Recomendations * Given continuing chest discomfort and significant ischemia described on recent MPI by Dr. Ruvalcaba, it appears reasonable to proceed with card cath * I discussed the rationale, procedure, risks, benefits, and potential complications of card cath and possible ad hoc PCI with her in detail. She understands and provides informed consent * We discussed the site of access. She doesn't want radial cath. States had "blood clot" after an earlier cath through the wrist. She notes bilateral groin and thigh/leg discomfort that is moderate and intermittent. She does not report any leg discoloration. She states it would be ok for us to proceed through the groin * Given ASA and bb and K in the ER ANNAMARIE BAUMANN MD FACP [facility] November 14, 2022 16:52
[2022-11-14] MEDS ORDERED: PATIENT MAY USE OWN MEDS, ALL PO SCH (17:00)
[2022-11-14] MEDS ORDERED: PANTOPRAZOLE 40 MG (PROTONIX) TAB PO NR (17:00)
--- NOTE | 2022-11-14 17:12 | Cardiac Cath Report ---
CARDIAC CATHETERIZATION DATE OF PROCEDURE: 11-14-22 INDICATION: Chest pain, abnormal stress chidi HISTORY: The patient is a 57 year old female who was admitted through the ER with chest pain and nonspecific ST and T abnormalities. On 11-12-22, she underwent MPI by Dr Ruvalcaba and was reported to have significant anterior ischemia (SDS 9) PROCEDURES PERFORMED: 1. Cor angio 2. LHC 2. Aortic arch angio PROCEDURE DESCRIPTION: After informed consent and in the fasting state, left heart catheterization was performed through the L femoral artery utilizing a 6 Amharic system by percutaneous approach. Standard Jackelyn catheters were utilized for the diagnostic portion of the procedure. Pigtail cath was used or LHC, LV angio, and aortic arch angio. Angio of the L femoral artery was performed and Mynx was used for hemostasis. LV ANGIO: Done only in the [place] projection. LVEF 60%. Mild, catheter-induced mitral regurg AORTIC ARCH ANGIO: No evidence of thoracic aortic dissection; neck arteries identified and did not exhibit significant disease in the visualized portion HEMODYNAMICS: LVEDP 14 mmHg; no significant pressure gradient on pull back across the aortic valve CORONARY ANGIOGRAPHY: Left main coronary artery: Ok Left anterior descending coronary artery: Ok Left circumflex coronary artery: Ok Right coronary artery: Dominant, ok IMPRESSION: 1. No angiographically significant CAD 2. LVEDP 14 mmHg 3. LVEF 60% ANNAMARIE BAUMANN MD FACP [facility] November 14, 2022 17:12
[2022-11-14] MEDS ORDERED: ACETAMINOPHEN 325 MG TABLET PO PRN (17:15)
[2022-11-14] MEDS: NS IV 1000 ML 1,000 ML IV SCH (17:45)
[2022-11-14] MEDS: cloNIDine 0.1 MG (CATAPRES) TAB PO SCH (20:07)
[2022-11-14] MEDS ORDERED: RIVAROXABAN 20 MG TABLET (XARELTO) PO NR (21:00)
[2022-11-15] VITALS: BP 108/68
[2022-11-15 04:00] VITALS: BP 119/71
[2022-11-15 04:14] LABS: BASOPHILS % (AUTO) 0 % (0-10); EOSINOPHILS # (AUTO) 0.1 10^3/uL (0.0-0.3); EOSINOPHILS % (AUTO) 1 % (0-10); HEMATOCRIT 34 % (35-52); HEMOGLOBIN 11.6 g/dL (11.5-16.0); LYMPHOCYTES % (AUTO) 18 % (12-44); MEAN CORPUSCULAR HEMOGLOBIN 29 pg (25-34); MEAN CORPUSCULAR HGB CONC 34 g/dL (32-36); MEAN CORPUSCULAR VOLUME 85 fL (80-99); MONOCYTES # (AUTO) 0.8 10^3/uL (0.0-1.0); MONOCYTES % (AUTO) 7 % (0-12); NEUTROPHILS # (AUTO) 7.9 10^3/uL (1.8-7.8); NEUTROPHILS % (AUTO) 73 % (42-75); PLATELET COUNT 206 10^3/uL (130-400); WHITE BLOOD COUNT 10.9 10^3/uL (4.3-11.0)
[2022-11-15 04:26] LABS: POTASSIUM 3.7 MMOL/L (3.6-5.0)
[2022-11-15 04:27] LABS: CALCIUM 8.5 MG/DL (8.5-10.1)
[2022-11-15 04:31] LABS: CREATININE SERUM 0.76 MG/DL (0.60-1.30)
[2022-11-15 04:35] LABS: MAGNESIUM 1.8 MG/DL (1.6-2.4)
[2022-11-15] MEDS: NS IV 1000 ML 1,000 ML IV SCH (06:26)
--- NOTE | 2022-11-15 07:56 | Consultation - Hospitalist ---
HPI History of Present Illness: HPI/Chief Complaint Patient is a 57-year-old female with past medical history of atrial fibrillation status post ablation, CHF, hypertension, hypothyroidism, hiatal hernia who presented to the emergency department due to chest pain. She had just had a stress test done on 12 November and since that time she has had chest pain and pressure. She states it is constant and goes straight through her back but will be intermittently more intense. Because of her recent stress test that showed reversible ischemia and persistent chest discomfort decision was made to admit to cardiology and proceed with cardiac catheterization. This was done and showed no significant coronary artery disease and an EF of 60%. This morning she reports feeling better but has not yet been out of bed. Her only complaint is that she has some constipation and she would like a stool softener as she does not want to push given recent groin access during her cath. Source: patient Date Seen 11/15/22 Attending Physician Heriberto Nunn MD PCP Admitting Physician: Attending Physician: Melissa Mcdonnell MD Facp Facc Ccds Referring Physician Date of Admission Home Medications & Allergies Home Medications Reviewed patient Home Medication Reconciliation performed by pharmacy medication reconciliations alignment technician and/or nursing. Patients Allergies have been reviewed. Allergies Allergies Coded Allergies Latex, Natural Rubber (Verified Allergy, Intermediate, Shortness of Breath, PARALIZED DIAHPHRAM, 02/17/22) Past Kpuvrgr-Dfianu-Afjlam Hx Patient Social History Tobacco Use?: No Substance use?: No Alcohol Use?: Yes Alcohol Frequency: Rarely Immunizations Up To Date Date of Influenza Vaccine: May 04, 2020 First/Initial COVID19 Vaccinat: NONE Second COVID19 Vaccination Arley: NONE Tetanus Booster (TDap): Less Than 5 Years Hepatitis A: Yes Hepatitis B: Yes PED Vaccines UTD: Yes Date of Pneumonia Vaccine: Feb 05, 2020 Seasonal Allergies Seasonal Allergies: Yes Current Status Advance Directives: No Primary Language: Luxembourger Preferred Spoken Language: Luxembourger Past Medical History Surgeries: Abdominal, Appendectomy, Bladder Surgery, Cardiac, Gallbladder, Hysterectomy, Pacemaker, Renal, Tonsillectomy Pneumonia, COPD Currently Using CPAP: No Currently Using BIPAP: No Atrial Fibrillation, Hypertension 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6 Pulse 78 Resp 16 B/P (MAP) 137/76 (96) Pulse Ox 100 O2 Delivery Room Air Capillary Refill : Less Than 3 Seconds Height, Weight, BMI Height: '" Weight: lbs. oz. kg; 32.00 BMI Method: General Appearance: No Apparent Distress, WD/WN, Obese Respiratory: Lungs Clear, No Accessory Muscle Use, No Respiratory Distress Cardiovascular: Regular Rate, Rhythm, No Murmur Gastrointestinal: Normal Bowel Sounds, Non Tender, Soft Extremity: No Pedal Edema Neurologic/Psychiatric: Alert, Oriented x3 Skin: Normal Color, Warm/Dry Results Results/Procedures Labs Laboratory Tests 11/14/22 14:15 11/15/22 03:37 Patient resulted labs reviewed. Imaging: Reviewed Imaging Report Imaging [facility] [place] NAME: OLESYA NEVES [facility] REC#: [id number] PT STATUS: REG [facility] : 1965 PHYSICIAN: PORSCHE MARIE APRN ADMIT DATE: 11/14/22/[facility] Signed Date of Exam:11/14/22 CHEST 1 VIEW, AP/PA ONLY INDICATION: Chest pain. COMPARISON: 10/13/2022. FINDINGS: Single frontal radiographic view of the chest was obtained and shows stable cardiac silhouette and pulmonary vasculature. Lungs show persistent asymmetric elevation of the right hemidiaphragm with associated right basilar atelectasis. Lungs are otherwise clear. There is no large effusion or pneumothorax on either side. Left-sided dual-lead pacemaker is noted. Osseous structures show no gross acute abnormalities. IMPRESSION: 1. No new acute cardiopulmonary process. Dictated by: Dictated on workstation # [id number] Dict: 11/14/22 1440 Trans: 11/14/22 1647 [id number] Interpreted by: RADHAMES SCHULTE MD Electronically signed by: RADHAMES SCHULTE MD 11/14/22 7283 Assessment/Plan Assessment and Plan Assess & Plan/Chief Complaint Chest pain A fib HTN underwent cardiac cath with no warranted intervention Etiology unclear but d-dimer negative as well Would recommend outpatient follow up given significant GI history (hiatla hernia, paralyzed diaphragm, GERD) for further work up Being discharged home today per Dr Mcdonnell Continue home cardiac meds Hypokalemia Replaced Seasonal allergies Loratadine Constipation Colace added ELISE DUDLEY MD November 15, 2022 7:56 am
[2022-11-15 08:00] VITALS: BP 108/73
[2022-11-15] MEDS: cloNIDine 0.1 MG (CATAPRES) TAB PO SCH (08:19)
[2022-11-15] MEDS ORDERED: PANTOPRAZOLE 40 MG (PROTONIX) TAB PO SCH (09:00)
--- NOTE | 2022-11-15 10:26 | Progress Note - Cardiology ---
Cardiology SOAP Progress Note Subjective: No cp or palp or syncope No shortness of breath No n/v/d No weakness or focal weakness No groin pain or leg discomfort Wishes to go home Objective: I&O/Vital Signs 11/15/22 11/15/22 11/15/22 11/15/22 00:00 01:00 04:00 04:00 Temp 36.9 36.7 Pulse 60 60 60 Resp 24 15 B/P (MAP) 108/68 (81) 119/71 (87) Pulse Ox 94 93 O2 Delivery Room Air Room Air 11/15/22 11/15/22 07:00 08:00 Temp 36.6 Pulse 62 61 Resp 20 B/P (MAP) 108/73 (85) Pulse Ox 97 O2 Delivery Room Air 11/15/22 00:00 Intake Total 200 ml Balance 200 ml Groin site without hematoma: Yes Condition: DP/PT pulses palpable Bruising: mild bruising Constitutional: AAO x 3, well-developed, well-nourished Respiratory: No accessory muscle use; chest expansion is symmetric, chest is bilaterally symmetric, other (good, bilat air entry) Cardiovascular: regular rate-rhythm, S1 and S2, systolic murmur (soft EVER at card base) Gastrointestional: No tender; soft; No guarding, No rebound; audible bowel sounds Extremities: No clubbing, No cyanosis, No significant edema Neurologic/Psychiatric: oriented x 3, other (moves all limb equally) Skin: No rash on exposed areas, No ulcerations on exposed areas Results/Procedures: Labs Laboratory Tests 11/14/22 14:15: White Blood Count 15.7H, Red Blood Count 4.84, Hemoglobin 14.1, Hematocrit 42, Mean Corpuscular Volume 86, Mean Corpuscular Hemoglobin 29, Mean Corpuscular Hemoglobin Concent 34, Red Cell Distribution Width 13.2, Platelet Count 253, Mean Platelet Volume 10.2, Immature Granulocyte % (Auto) 0, Neutrophils (%) (Auto) 83H, Lymphocytes (%) (Auto) 12, Monocytes (%) (Auto) 4, Eosinophils (%) (Auto) 1, Basophils (%) (Auto) 0, Neutrophils # (Auto) 13.0H, Lymphocytes # (Auto) 1.9, Monocytes # (Auto) 0.7, Eosinophils # (Auto) 0.1, Basophils # (Auto) 0.0, Immature Granulocyte # (Auto) 0.0, Neutrophils % (Manual) 83, Lymphocytes % (Manual) 14, Monocytes % (Manual) 3, Blood Morphology Comment NORMAL, Prothrombin Time 27.2H, INR Comment 2.5H, Activated Partial Thromboplast Time 52H, D-Dimer <= 0.27, Sodium Level 139, Potassium Level 3.3L, Chloride Level 104, Carbon Dioxide Level 25, Anion Gap 10, Blood Urea Nitrogen 12, Creatinine 0.87, Estimat Glomerular Filtration Rate 79, BUN/Creatinine Ratio 14, Glucose Level 85, Calcium Level 9.7, Corrected Calcium , Magnesium Level 1.9, Total Bilirubin 0.9, Aspartate Amino Transf (AST/SGOT) 29, Alanine Aminotransferase (ALT/SGPT) 38, Alkaline Phosphatase 100, Troponin I < 0.028, B-Type Natriuretic Peptide 22.0, Total Protein 8.2, Albumin 4.9H 11/15/22 03:37: White Blood Count 10.9, Red Blood Count 3.97, Hemoglobin 11.6, Hematocrit 34L, Mean Corpuscular Volume 85, Mean Corpuscular Hemoglobin 29, Mean Corpuscular Hemoglobin Concent 34, Red Cell Distribution Width 13.2, Platelet Count 206, Mean Platelet Volume 11.0, Immature Granulocyte % (Auto) 0, Neutrophils (%) (Auto) 73, Lymphocytes (%) (Auto) 18, Monocytes (%) (Auto) 7, Eosinophils (%) (Auto) 1, Basophils (%) (Auto) 0, Neutrophils # (Auto) 7.9H, Lymphocytes # (Auto) 2.0, Monocytes # (Auto) 0.8, Eosinophils # (Auto) 0.1, Basophils # (Auto) 0.0, Immature Granulocyte # (Auto) 0.0, Sodium Level 139, Potassium Level 3.7, Chloride Level 109H, Carbon Dioxide Level 19L, Anion Gap 11, Blood Urea Nitrogen 11, Creatinine 0.76, Estimat Glomerular Filtration Rate 92, BUN/Creatinine Ratio 14, Glucose Level 106H, Calcium Level 8.5, Magnesium Level 1.8 Laboratory Tests 11/14/22 14:15 11/15/22 03:37 A/P: Assessment: Chest pain - MPI of 11-12-[address] Ruvalcaba had indicated anterolateral ischemia (SDS 9) - Card cath on 11/14/22: No angiographically significant CAD, LVEDP 14 mmHg, LVEF 60% Paroxysmal atrial fibrillation/flutter - s/p multiple ablations. Last ablation by Dr Sanon at [facility] January 17, 2022, complicated by diaphragmatic injury and possible phrenic nerve injury. - s/p multiple elec CV, last in October [address] Ruvalcaba - intolerant to amiodarone, Multaq, reports she failed Sotalol, Tikosyn, Flecainide; propafenone reportedly ineffective in controlling her A Fib - intolerant to metoprolol due to generalized fatigue. - 2D echo was done on May 30, 2022 with normal LV size, EF 55 to 60%, PA pressure 20 mmHg Sinus node dysfunction, history of Medtronic dual-chamber pacemaker, functioning normally. Had it implanted in [place], Dr Ruvalcaba monitoring Generalized fatigue and loss of energy, chronic H/o mild hyperlipidemia - Lipid profile done on August 26, 2021 showing total cholesterol 168, triglyc eride 91, HDL 45, LDL 116. History of hiatal hernia, had repair surgery done at Hypothyroidism, followed and managed by primary care physician COPD, maintained on bronchodilator. Followed and managed by primary care physician Nonobstructive carotid artery stenosis per carotid duplex done November 2021., monitored by Dr Ruvalcaba H/o urolithiasis Plan: * I again discussed her cath findings with her * Chest discomfort appears to be non-cardiac (base on cath of 11-14-22) * Risk factor modification advised and discussed * Post-cath care advised and discussed * F/u advised with ANNAMARIE Root MD FACP [facility] November 15, 2022 10:26
[2022-11-15] MEDS ORDERED: POTA-177 PO (10:29)
--- NOTE | 2022-11-15 10:30 | Discharge Inst-Post CATH ---
Discharge Inst-CATH/EP Post Cardiac Cath/EP D/C Inst Follow Up/Plan F/u with Dr Ruvalcaba in 1-2 weeks ACTIVITY * Go Home directly and rest. * Limit activity of the leg (or wrist if it was used) for 7 days including aerobics, swimming, jogging, bicycling, etc. * Restrict stair-climbing for 7 days if possible, if not, climb up with your n on-cath leg, then bring together on the same step. * Avoid lifting, pushing, pulling or excessive movement of the affected ex tremity for 7 days. * Customary sexual activity may be resumed after 2 days-use caution not to use a position that strains or causes pain to the affected extremity. * No driving for 24 hours. * NO SMOKING. * Avoid straining for bowel movements for 7 days. * Gentle walking on level ground is allowed. * Returning to work will depend on the type of procedure and the results. Your doctor will discuss this with you. CALL YOUR DOCTOR FOR ANY OF THE FOLLOWING: *If bleeding from the puncture site occurs- Apply gentle pressure to site with clean cloth and call your doctor or EMS. * If a knot or lump forms under the skin, increases in size, or causes pain. * If bruising appears to be worsening or moving further down your leg instead of disappearing. * Temperature above 101 F. CARE OF YOUR GROIN INCISION; * Bruising or purple discoloration of the skin near the puncture site is common. * You may shower only, no bathtub bathing for 5 days. Be careful to avoid slipping as your leg may feel stiff. * If a closure device was used on your femoral artery, please see the attached guide regarding care of the device and your leg. * Leave dressing on FOR 24 hours. CARE OF YOUR WRIST INCISION; * Bruising or purple discoloration of the skin near the puncture site is common. * You may shower. * DO NOT submerge wrist. * Leave dressing on FOR 24 hours. ANNAMARIE BAUMANN MD FACP [facility] November 15, 2022 10:30
--- NOTE | 2022-11-15 10:31 | Discharge Inst-Cardiology ---
Discharge Inst-Cardiac Discharge Medications New Medications: Potassium Chloride (Potassium Chloride) 10 Meq Tab.er.prt 10 MEQ PO DAILY, #30 TAB 3 Refills Continued Medications: Albuterol Sulfate (Albuterol Sulfate) 2.5 Mg/3 Ml (0.083 %) Vial.neb 3 ML NEB Q4H PRN for SHORTNESS OF BREATH, EA Clonidine HCl (Clonidine HCl) 0.1 Mg Tablet 0.1 MG PO BID PRN for BP OVER 140/90, TAB Diazepam (Diazepam) 5 Mg Tablet 5 MG PO BID PRN for ANXIETY, TAB Diltiazem HCl (Diltiazem 24Hr ER) 180 Mg Cap.er.24h 180 MG PO DAILY, #30 CAP Replaces the 120 mg dose. Docusate Sodium (Colace) 100 Mg Capsule 100 MG PO BID, CAP Fish Oil/Dha/Epa (Fish Oil 1,200 mg Fish Oil) 1,200 Mg-144 Mg-216 Mg Capsule 1 EACH PO HS, CAP Furosemide (Furosemide) 40 Mg Tablet 40 MG PO DAILY, TAB Levocetirizine Dihydrochloride (Levocetirizine Dihydrochloride) 5 Mg Tablet 5 MG PO HS, TAB Meclizine HCl (Meclizine HCl) 25 Mg Tablet 25 MG PO Q6H PRN for dizziness, #20 TAB Pantoprazole Sodium (Pantoprazole Sodium) 40 Mg Tablet.dr 40 MG PO HS, TAB Propafenone HCl (Propafenone HCl) 150 Mg Tablet 150 MG PO TID, #90 TAB 4 Refills Rivaroxaban (Xarelto) 20 Mg Tablet 20 MG PO 1900, TAB Sumatriptan Succinate (Sumatriptan Succinate) 50 Mg Tablet 50 MG PO UD PRN for MIGRAINE, TAB TAKE 1 TABLET AT ONSET OF MIGRAINE AND MAY REPEAT 1 DOSE AFTER 2 HOURS IF NO RELIEF [Vit C/Vit D/Zinc] () 1 EA PO HS Vitamin E Mixed (Vitamin E) 1,000 Unit Capsule 1000 UNIT PO HS, CAP ANNAMARIE BAUMANN MD [facility] November 15, 2022 10:31
--- NOTE | 2022-11-15 10:34 | Cardiology Discharge Summary ---
Diagnosis/Chief Complaint Date of Admission 11-14-22 Date of Discharge 11-15-22 Final/Discharge Diagnosis Chest pain - MPI of 11-12-[address] Ruvalcaba had indicated anterolateral ischemia (SDS 9) - Card cath on 11/14/22: No angiographically significant CAD, LVEDP 14 mmHg, LVEF 60% Paroxysmal atrial fibrillation/flutter - s/p multiple ablations. 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 - s/p multiple elec CV, last in October [address] Ruvalcaba - intolerant to amiodarone, Multaq, reports she failed Sotalol, Tikosyn, Flecainide; propafenone reportedly ineffective in controlling her A Fib - intolerant to metoprolol due to generalized fatigue. - 2D echo was done on May 30, 2022 with normal LV size, EF 55 to 60%, PA pressure 20 mmHg Sinus node dysfunction, history of [employer] dual-chamber pacemaker, functioning normally. Had it implanted in [place], Dr Ruvalcaba monitoring Generalized fatigue and loss of energy, chronic H/o mild hyperlipidemia - Lipid profile done on August 26, 2021 showing total cholesterol 168, triglyceride 91, HDL 45, LDL 116. History of hiatal hernia, had repair surgery done at Hypothyroidism, followed and managed by primary care physician COPD, maintained on bronchodilator. Followed and managed by primary care physician Nonobstructive carotid artery stenosis per carotid duplex done November 2021., monitored by Dr Ruvalcaba H/o urolithiasis Chief Complaint/HPI Chief Complaint/HPI CC: Chest pain HPI 57 yo with waxing and waning, mid sternal discomfort since yesterday, moderate, pressure-like, radiating to back, worse with exertion, associated with some shortness of breath. Generally feels unwell. Hosp Course: Cath did not show any significant CAD and LVEF was normal Previous regimen is being continued. See d/c orders and meds K has been added to the regimen because takes furosemide and presented with mild hypokalemia (replenished) Oupt f/u is advised with Dr Ruvalcaba See the progress note of today's date for condition at discharge Discharge Summary Hospital Course Pending Labs Laboratory Tests 11/15/22 03:37: White Blood Count 10.9, Red Blood Count 3.97, Hemoglobin 11.6, Hematocrit 34, Mean Corpuscular Volume 85, Mean Corpuscular Hemoglobin 29, Mean Corpuscular Hemoglobin Concent 34, Red Cell Distribution Width 13.2, Platelet Count 206, Mean Platelet Volume 11.0, Immature Granulocyte % (Auto) 0, Neutrophils (%) (Auto) 73, Lymphocytes (%) (Auto) 18, Monocytes (%) (Auto) 7, Eosinophils (%) (Auto) 1, Basophils (%) (Auto) 0, Neutrophils # (Auto) 7.9, Lymphocytes # (Auto) 2.0, Monocytes # (Auto) 0.8, Eosinophils # (Auto) 0.1, Basophils # (Auto) 0.0, Immature Granulocyte # (Auto) 0.0, Sodium Level 139, Potassium Level 3.7, Chloride Level 109, Carbon Dioxide Level 19, Anion Gap 11, Blood Urea Nitrogen 11, Creatinine 0.76, Estimat Glomerular Filtration Rate 92, BUN/Creatinine Ratio 14, Glucose Level 106, Calcium Level 8.5, Magnesium Level 1.8 Discussion & Recommendations Home Medications Reviewed patient Home Medication Reconciliation performed by pharmacy medication reconciliations industrial service technician and/or nursing. Patients Allergies have been reviewed. Discharge Home Medications: Reviewed and agree with Discharge Medication list on patient's Discharge Instruction sheet Instructions to patient/family F/u with Dr Ruvalcaba in 1-2 weeks ANNAMARIE BAUMANN MD [facility] November 15, 2022 10:34
[2022-11-15] MEDS ORDERED: DOCUSATE SODIUM 100 MG (COLACE) CAP PO PRN (10:45)
[2022-11-15] MEDS ORDERED: RIVAROXABAN 20 MG TABLET (XARELTO) PO SCH (17:00)
[2022-11-16] MEDS ORDERED: LORATADINE (CLARITIN) 10 MG TAB PO SCH (09:00)
--- NOTE | 2022-11-19 13:05 | Conscious Sedation/ASA ---
11/19/22 1305: Moderate Sedation PreProcedure ASA Score Airway Lungs Heart ASA score ASA 1: a normal healthy patient ASA 2: a patient with a mild systemic disease (mid diabetes, controlled hypertension, obesity ASA 3: a patient with a severe systemic disease that limits activity (angina, COPD, prior Myocardial infarction) ASA 4: a patient with an incapacitating disease that is a constant threat to life (CHF, renal failure) ASA 5: a moribund patient not expected to survive 24 hrs. (ruptured aneurysm) ASA 6: a declared brain- patient whose organs are being harvested. For emergent operations, add the letter E after the classification Sedation Plan The patient is an appropriate candidate to undergo the planned procedure, sedation, and anesthesia. The patient immediately re-assessed prior to indication. ANNAMARIE BAUMANN MD [facility] 11/19/22 1336: Moderate Sedation PreProcedure ASA Score 3 Mallampati Classification Grade 2 Sedation Plan Analgesia, Amnesia, Plan communicated to team members November 19, 2022 13:05 ANNAMARIE BAUMANN MD [facility] November 19, 2022 13:36
== END 2022-11-15 11:55 | disposition home or self-care (01) ==
LOC: EDUNIT# 14:07 → ER 14:09 → SDC 15:59 → ICU 17:49 → SDC 11-15 11:55
PROVIDERS: ATTEND Internal Medicine Cardiovascular Disease
DX: R07.9 Chest pain, unspecified (principal); I49.5 Sick sinus syndrome; R94.39 Abnormal result of other cardiovascular function study; I48.0 Paroxysmal atrial fibrillation; E78.5 Hyperlipidemia, unspecified; E03.9 Hypothyroidism, unspecified; J44.9 Chronic obstructive pulmonary disease, unspecified; I65.29 Occlusion and stenosis of unspecified carotid artery; E66.9 Obesity, unspecified; I10 Essential (primary) hypertension; E87.6 Hypokalemia; J30.2 Other seasonal allergic rhinitis; K59.00 Constipation, unspecified; Z79.899 Other long term (current) drug therapy; Z98.890 Other specified postprocedural states; Z87.19 Personal history of other diseases of the digestive system; Z87.442 Personal history of urinary calculi; Z68.32 Body mass index [BMI] 32.0-32.9, adult; Z95.0 Presence of cardiac pacemaker
CPT/HCPCS: 36221; 71045; 80048; 80053; 83735 ×2; 83880; 84484; 85007; 85025; 85027; 85379; 85610; 85730; 93005 ×2; 93458; 99284; C1760; C1894; 36415

== ENCOUNTER 2022-11-22 09:04 | Emergency (ER) | payer BC ==
[~2022-11-22] VITALS: Ht 162.5 cm; Wt 85.0 kg
[~2022-11-22 09:04] MED LIST changes: +POTA-177 PO
--- NOTE | 2022-11-22 10:32 | ED Integumentary General ---
General Chief Complaint: Lower Extremity Stated Complaint: POST OP LEFT LEG INCREASED BRUISING/KNOT AT SITE Nursing Triage Note: PATIENT CONCERNED ABOUT POST OP HEART CATH SITE. STATES SHE HAS SOME TINGLING, A KNOT AND BRUSING AT THE SITE, AND SHE HAS NOT HAD THAT HAPPEN BEFORE. History of Present Illness Date Seen by Provider: November 22, 2022 Time Seen by Provider: 10:16 Initial Comments Patient is a 57-year-old female who presents to the emergency department with a chief complaint of bruising, tenderness to her left groin and upper thigh as well as "numbness" in her thigh. She had an "emergent" heart cath a week ago Thursday. She states she has had cath in the past that did not result in this. No fevers or chills. No other complaints of illness or injury. Timing/Duration: week Severity: moderate Location: extremities (Left groin and upper thigh) Possible Cause: other (Post heart cath) Associated Symptoms: numbness, other (Bruising) Allergies and Home Medications Allergies Coded Allergies: Latex, Natural Rubber (Verified Allergy, Intermediate, Shortness of Breath, PARALIZED DIAHPHRAM, 02/17/22) Patient Home Medication List Home Medication List Reviewed: Yes Albuterol Sulfate (Albuterol Sulfate) 2.5 Mg/3 Ml (0.083 %) Vial.neb, 3 ML NEB Q4H PRN for SHORTNESS OF BREATH, (Reported) Entered as Reported by: LEOBARDO CARLIN on 03/10/22 1558 Clonidine HCl (Clonidine HCl) 0.1 Mg Tablet, 0.1 MG PO BID PRN for BP OVER 140/90, (Reported) Entered as Reported by: LEOBARDO CARLIN on 08/26/21 1043 Diazepam (Diazepam) 5 Mg Tablet, 5 MG PO BID PRN for ANXIETY, (Reported) Entered as Reported by: LEOBARDO CARLIN on 08/26/21 1043 Diltiazem HCl (Diltiazem 24Hr ER) 180 Mg Cap.er.24h, 180 MG PO DAILY Prescribed by: KINGSLEY DAY on 10/11/22 1033 Docusate Sodium (Colace) 100 Mg Capsule, 100 MG PO BID, (Reported) Entered as Reported by: RAJAN SWANN on 10/13/22 1711 Fish Oil/Dha/Epa (Fish Oil 1,200 mg Fish Oil) 1,200 Mg-144 Mg-216 Mg Capsule, 1 EACH PO HS, (Reported) Entered as Reported by: LEOBARDO CARLIN on 03/10/221557 Furosemide (Furosemide) 40 Mg Tablet, 40 MG PO DAILY, (Reported) Entered as Reported by: LEOBARDO CARLIN on 03/10/221557 Levocetirizine Dihydrochloride (Levocetirizine Dihydrochloride) 5 Mg Tablet, 5 MG PO HS, (Reported) Entered as Reported by: KERLINE JORGENSEN on 05/30/22 1012 Meclizine HCl (Meclizine HCl) 25 Mg Tablet, 25 MG PO Q6H PRN for dizziness Prescribed by: ANDREE BUTT on 10/02/22 1045 Pantoprazole Sodium (Pantoprazole Sodium) 40 Mg Tablet.dr, 40 MG PO HS, (Reported) Entered as Reported by: MYRTLE VANN on 02/04/22 1240 Potassium Chloride (Potassium Chloride) 10 Meq Tab.er.prt, 10 MEQ PO DAILY Prescribed by: ANNAMARIE BAUMANN on 11/15/22 1029 Propafenone HCl (Propafenone HCl) 150 Mg Tablet, 150 MG PO TID Prescribed by: ERIKA RUVALCABA on 10/14/22 0829 Rivaroxaban (Xarelto) 20 Mg Tablet, 20 MG PO 1900, (Reported) Entered as Reported by: LEOBARDO CARLIN on 03/10/221557 Sumatriptan Succinate (Sumatriptan Succinate) 50 Mg Tablet, 50 MG PO UD PRN for MIGRAINE, (Reported) Entered as Reported by: LEOBARDO CARLIN on 03/10/221557 Vitamin E Mixed (Vitamin E) 1,000 Unit Capsule, 1,000 UNIT PO HS, (Reported) Entered as Reported by: LEOBARDO CARLIN on 03/10/221557 [Vit C/Vit D/Zinc] , 1 EA PO HS, (Reported) Entered as Reported by: LEOBARDO CARLIN on 03/10/221557 Review of Systems Review of Systems Constitutional: see HPI Respiratory: no symptoms reported Cardiovascular: no symptoms reported Gastrointestinal: no symptoms reported Musculoskeletal: other (Left thigh discomfort and numbness) Skin: other (Ecchymosis left medial thigh) Psychiatric/Neurological: Numbness (Left upper thigh) All Other Systems Reviewed Negative Unless Noted: Yes Past Ilwvsle-Zvubti-Fgwavj Hx Patient Social History Tobacco Use?: No Use of E-Cig and/or Vaping dev: No Substance use?: No Alcohol Use?: No Pt feels they are or have been: No Immunizations Up To Date Tetanus Booster (TDap): Less than 5yrs PED Vaccines UTD: Yes First/Initial COVID19 Vaccinat: NONE Second COVID19 Vaccination Arley: NONE Third COVID19 Vaccination Date: NONE Seasonal Allergies Seasonal Allergies: Yes Past Medical History Surgery/Hospitalization HX: pacemaker, CHF, A-fib, Cardiac cath, 4 cardiac ablasions, hysterectomy, appendectomy, tonsillectomy, titi, hiatal hernia, ureteral stent, d&c,BLADDER SLINGafib, chf, copd, renal stones, htn, high cholesterol, liver disease,barrettsesophagus, hypothryoidism Surgeries: Yes Abdominal, Appendectomy, Bladder Surgery, Cardiac, Gallbladder, Hysterectomy, Pacemaker, Renal, Tonsillectomy Respiratory: Yes (HX PARALYZED DIAPHRAGM) Pneumonia, COPD Currently Using CPAP: No Currently Using BIPAP: No Cardiac: Yes (PACEMAKER) Atrial Fibrillation, Hypertension Neurological: Yes (Right diaphragmatic paralysis) Stroke Female 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 Disorders: 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 Sexually Transmitted Disease: No Genitourinary: Yes Kidney Stones Gastrointestinal: Yes Gastroesophageal Reflux, Reina's Esophagus, Hemorrhoids, Hiatal Hernia Musculoskeletal: Yes Back Injury Endocrine: Yes Hypothyroidsim HEENT: No Loss of Vision: Denies Hearing Impairment: Denies Cancer: Yes Colon Psychosocial: Yes PTSD, Depression Integumentary: Yes Psoriasis Blood Disorders: No Family Medical History Colon cancer No Pertinent Family Hx Noncontributory Physical Exam Vital Signs Vital Signs - First Documented 11/22/22 09:29 Temp 36.4 Pulse 70 Resp 16 B/P (MAP) 127/83 (98) Pulse Ox 96 Capillary Refill : General Appearance: WD/WN, no apparent distress Cardiovascular: regular rate, rhythm, other (Left femoral pulses palpable, no tenderness directly over the pulse) Respiratory: no respiratory distress, no accessory muscle use Extremities: normal range of motion, other (Patient has ecchymosis across the medial left proximal thigh as well as up over the mons pubis.; Patient has tenderness just above the left inguinal canal, question palpable lymph node. No tense edema in the proximal thigh. Thigh is soft and supple.) Neurologic/Psychiatric: alert, normal mood/affect, oriented x 3 Skin: normal color, warm/dry, ecchymosis (As above) Skin Problem Location: other (Left groin and thigh and mons pubis) Progress/Results/Core Measures Results/Orders Vital Signs/I&O 11/22/22 09:29 Temp 36.4 Pulse 70 Resp 16 B/P (MAP) 127/83 (98) Pulse Ox 96 Blood Pressure Mean: 98 Progress Progress Note : Time: 10:28 Progress Note Patient seen and evaluated by me. Exam consistent with recent heart cath with bruising/ecchymosis in the left proximal thigh and up over the mons pubis. Pa lpable pulse in the left groin that is nontender in and of itself. Just cephalad to the femoral pulse is a 2 to 3 cm mass likely a lymph node. This is very tender. No tense edema in the thigh, no clinical concern for expanding hematoma. Distal pulses intact. No calf tenderness or swelling. Low clinical concern for pseudoaneurysm. Patient is recommended supportive care, ice packs, limit lifting to 10 pounds as directed by cardiology. Return precautions for increased swelling, pain or compromise of ability to move the leg. Patient verbalized understanding. All questions are sought and answered. Departure Impression Primary Impression: Acute postoperative pain of left groin Disposition: 01 HOME, SELF-CARE Condition: Stable Departure-Patient Inst. Decision time for Depature: 10:30 Referrals: JIMY BENNETT MD (PCP/Family) Primary Care Physician Add. Discharge Instructions: You can put ice packs on the left groin to help with swelling and discomfort. Continue your routine medications. Please make sure you have scheduled a follow-up appointment with Dr. Ruvalcaba for 1 to 2 weeks after the heart cath was done. He can also assess the heart cath site. If you develop worsening swelling, the thigh becomes "tight", worsening pain or numbness down the leg or any other emergent, concerning symptoms please return to the emergency room for reevaluation. ANDREE BUTT MD November 22, 2022 10:31
[2022-11-22 10:48] VITALS: BP 121/63
== END 2022-11-22 10:52 | disposition home or self-care (01) ==
LOC: EDUNIT# 09:04 → ER 09:07
DX: T82.847A Pain due to cardiac prosthetic devices, implants and grafts, initial encounter (principal); R10.32 Left lower quadrant pain; R58 Hemorrhage, not elsewhere classified; Z91.040 Latex allergy status; Z28.310 Unvaccinated for COVID-19; Z90.49 Acquired absence of other specified parts of digestive tract; Z87.19 Personal history of other diseases of the digestive system
CPT/HCPCS: 99281

== ENCOUNTER → 2022-12-10 | Outpatient (RCR) | payer BC | LOC: LAB 08:50 | PROVIDERS: ATTEND Nurse Practitioner Family | DX: R19.7 Diarrhea, unspecified (principal); R19.5 Other fecal abnormalities | CPT/HCPCS: 87015; 87045; 87046; 87328; 87329; 87899 ==

== ENCOUNTER 2022-12-19 10:01 | Emergency (ER) | payer BC ==
[~2022-12-19] VITALS: Ht 162 cm; Wt 86.0 kg
[2022-12-19 10:36] LABS: BASOPHILS % (AUTO) 1 % (0-10); EOSINOPHILS # (AUTO) 0.1 10^3/uL (0.0-0.3); EOSINOPHILS % (AUTO) 1 % (0-10); HEMATOCRIT 45 % (35-52); HEMOGLOBIN 15.4 g/dL (11.5-16.0); LYMPHOCYTES # (AUTO) 3.2 10^3/uL (1.0-4.0); LYMPHOCYTES % (AUTO) 46 % (12-44); MEAN CORPUSCULAR HEMOGLOBIN 29 pg (25-34); MEAN CORPUSCULAR HGB CONC 35 g/dL (32-36); MEAN CORPUSCULAR VOLUME 85 fL (80-99); MEAN PLATELET VOLUME 10.3 fL (9.0-12.2); MONOCYTES # (AUTO) 0.5 10^3/uL (0.0-1.0); MONOCYTES % (AUTO) 7 % (0-12); NEUTROPHILS # (AUTO) 3.2 10^3/uL (1.8-7.8); NEUTROPHILS % (AUTO) 45 % (42-75); PLATELET COUNT 254 10^3/uL (130-400); WHITE BLOOD COUNT 7.1 10^3/uL (4.3-11.0)
[2022-12-19 10:37] LABS: CHLORIDE 107 MMOL/L (98-107); POTASSIUM 3.5 MMOL/L (3.6-5.0); SODIUM 142 MMOL/L (135-145)
[2022-12-19 10:38] LABS: CALCIUM 9.6 MG/DL (8.5-10.1); GLUCOSE 107 MG/DL (70-105)
[2022-12-19 10:40] LABS: CARBON DIOXIDE 23 MMOL/L (21-32)
[2022-12-19 10:42] LABS: CREATININE SERUM 1.01 MG/DL (0.60-1.30); GFR ESTIMATED 66
[2022-12-19 10:43] LABS: BUN/CREATININE RATIO 15
[2022-12-19 10:45] LABS: MAGNESIUM 1.8 MG/DL (1.6-2.4)
--- NOTE | 2022-12-19 11:32 | ED Cardiac General ---
History of Present Illness General Chief Complaint: Cardiac/General Problems Stated Complaint: ELEVATED HEART RATE | POSSIBLE AFIB Nursing Triage Note: PT AMB TO RM 6 PT CO OF ELEVATED HR AND HAS HX OF A-FIB. PT DENIES C/P. PT STATES WAS SENT TO ED BY DR RUVALCABA OFFICE AFTER PACEMAKER CHECK. PT STATES HAS MISSED APPROX 5 DOSES OF XARALTO. PT STATES TO DR THAT SHE HAD CHEST PAIN IN LAST 20MIN W SOME SOA Source: patient Exam Limitations: no limitations History of Present Illness Date Seen by Provider: Dec 19, 2022 Time Seen by Provider: 10:08 Initial Comments This 57-year-old woman with paroxysmal atrial fibrillation presents to the emergency room with complaints of tachycardia called by a chest discomfort, and shortness of breath consistent with prior episodes of atrial fibrillation. She is noted to be in atrial fibrillation on the monitor with a heart rate of about 115. Chart was reviewed and she was noted to have a clean cardiac cath study performed last month. She is anticoagulated on Xarelto but missed about 5 doses in the past 2 weeks when she traveled to [place] to assist her boyfriend after an auto accident. She took her morning medications today. Dr. Ruvalcaba is her pr imary ems manager. She contacted his office this morning, and she reports staff directed her to the emergency room. Allergies and Home Medications Allergies Coded Allergies: Latex, Natural Rubber (Verified Allergy, Intermediate, Shortness of Breath, PARALIZED DIAHPHRAM, 02/17/22) Patient Home Medication List Home Medication List Reviewed: Yes Albuterol Sulfate (Albuterol Sulfate) 2.5 Mg/3 Ml (0.083 %) Vial.neb, 3 ML NEB Q4H PRN for SHORTNESS OF BREATH, (Reported) Entered as Reported by: LEOBARDO CARLIN on 03/10/22 1558 Clonidine HCl (Clonidine HCl) 0.1 Mg Tablet, 0.1 MG PO BID PRN for BP OVER 140/90, (Reported) Entered as Reported by: LEOBARDO CARLIN on 08/26/21 1043 Diazepam (Diazepam) 5 Mg Tablet, 5 MG PO BID PRN for ANXIETY, (Reported) Entered as Reported by: LEOBARDO CARLIN on 08/26/21 1043 Diltiazem HCl (Diltiazem 24Hr ER) 180 Mg Cap.er.24h, 180 MG PO DAILY Prescribed by: KINGSLEY DAY on 10/11/22 1033 Docusate Sodium (Colace) 100 Mg Capsule, 100 MG PO BID, (Reported) Entered as Reported by: RAJAN SWANN on 10/13/22 1711 Fish Oil/Dha/Epa (Fish Oil 1,200 mg Fish Oil) 1,200 Mg-144 Mg-216 Mg Capsule, 1 EACH PO HS, (Reported) Entered as Reported by: LEOBARDO CARLIN on 03/10/22 155 Furosemide (Furosemide) 40 Mg Tablet, 40 MG PO DAILY, (Reported) Entered as Reported by: LEOBARDO CARLIN on 03/10/22 155 Levocetirizine Dihydrochloride (Levocetirizine Dihydrochloride) 5 Mg Tablet, 5 MG PO HS, (Reported) Entered as Reported by: KERLINE JORGENSEN on 05/30/22 1012 Meclizine HCl (Meclizine HCl) 25 Mg Tablet, 25 MG PO Q6H PRN for dizziness Prescribed by: ANDREE BUTT on 10/02/22 1045 Pantoprazole Sodium (Pantoprazole Sodium) 40 Mg Tablet.dr, 40 MG PO HS, (Reported) Entered as Reported by: MYRTLE VANN on 02/04/22 1240 Potassium Chloride (Potassium Chloride) 10 Meq Tab.er.prt, 10 MEQ PO DAILY Prescribed by: ANNAMARIE BAUMANN on 11/15/22 1029 Propafenone HCl (Propafenone HCl) 150 Mg Tablet, 150 MG PO TID Prescribed by: ERIKA RUVALCABA on 10/14/22 0829 Rivaroxaban (Xarelto) 20 Mg Tablet, 20 MG PO 1900, (Reported) Entered as Reported by: LEOBARDO CARLIN on 03/10/22 155 Sumatriptan Succinate (Sumatriptan Succinate) 50 Mg Tablet, 50 MG PO UD PRN for MIGRAINE, (Reported) Entered as Reported by: LEOBARDO CARLIN on 03/10/221557 Vitamin E Mixed (Vitamin E) 1,000 Unit Capsule, 1,000 UNIT PO HS, (Reported) Entered as Reported by: LEOBARDO CARLIN on 03/10/22 155 [Vit C/Vit D/Zinc] , 1 EA PO HS, (Reported) Entered as Reported by: LEOBARDO CARLIN on 03/10/221557 Review of Systems Review of Systems Constitutional: no symptoms reported EENTM: No Symptoms Reported Respiratory: See HPI Cardiovascular: See HPI Gastrointestinal: No Symptoms Reported Genitourinary: No Symptoms Reported Musculoskeletal: no symptoms reported Skin: no symptoms reported Psychiatric/Neurological: No Symptoms Reported Endocrine: No Symptoms Reported Past Cohhshe-Wwbpeq-Zpechz Hx Patient Social History Tobacco Use?: No Substance use?: No Alcohol Use?: No Pt feels they are or have been: No Immunizations Up To Date Tetanus Booster (TDap): Less than 5yrs PED Vaccines UTD: Yes First/Initial COVID19 Vaccinat: NONE Second COVID19 Vaccination Arley: NONE Third COVID19 Vaccination Date: NONE Seasonal Allergies Seasonal Allergies: Yes Past Medical History Surgery/Hospitalization HX: pacemaker, CHF, A-fib, Cardiac cath, 4 cardiac ablasions, hysterectomy, appendectomy, tonsillectomy, titi, hiatal hernia, ureteral stent, d&c,BLADDER SLINGafib, chf, copd, renal stones, htn, high cholesterol, liver disease,barrettsesophagus, hypothryoidism Surgeries: Yes Abdominal, Appendectomy, Bladder Surgery, Cardiac (Ablation, cath without intervention), Gallbladder, Hysterectomy, Pacemaker, Renal, Tonsillectomy Respiratory: Yes (HX PARALYZED RT DIAPHRAGM) Pneumonia, COPD Currently Using CPAP: No Currently Using BIPAP: No Cardiac: Yes (PACEMAKER) Atrial Fibrillation (Paroxysmal), Hypertension Neurological: Yes (Right diaphragmatic paralysis) Stroke Female 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 Disorders: Denies 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 Sexually Transmitted Disease: No Genitourinary: Yes Kidney Stones Gastrointestinal: Yes Gastroesophageal Reflux, Reina's Esophagus, Hemorrhoids, Hiatal Hernia Musculoskeletal: Yes Back Injury Endocrine: Yes Hypothyroidsim HEENT: No Loss of Vision: Denies Hearing Impairment: Denies Cancer: Yes Colon Psychosocial: Yes PTSD, Depression Integumentary: Yes Psoriasis Blood Disorders: No Family Medical History Colon cancer No Pertinent Family Hx Noncontributory Physical Exam Vital Signs Vital Signs - First Documented 12/19/22 12/19/22 10:05 12:21 Temp 36.3 Pulse 117 Resp 18 B/P (MAP) 129/89 (102) Pulse Ox 98 O2 Delivery Room Air Capillary Refill : NONE Height, Weight, BMI Height: '" Weight: lbs. oz. kg; 32.00 BMI Method: General Appearance: No Apparent Distress, WD/WN HEENT: PERRL/EOMI, Normal ENT Inspection Neck: Normal Inspection Respiratory: Lungs Clear, Normal Breath Sounds, No Accessory Muscle Use Cardiovascular: No Edema, No Murmur, Irregularly Irregular, Tachycardia (Mild) Extremity: Normal Inspection Neurologic/Psychiatric: Alert, Oriented x3, No Motor/Sensory Deficits, Normal Mood/Affect Skin: Normal Color, Warm/Dry Progress/Results/Core Measures Results/Orders Lab Results Laboratory Tests Test 12/19/22 10:11 Range/Units White Blood Count 7.1 4.3-11.0 10^3/uL Red Blood Count 5.25 H 3.80-5.11 10^6/uL Hemoglobin 15.4 11.5-16.0 g/dL Hematocrit 45 35-52 % Mean Corpuscular Volume 85 80-99 fL Mean Corpuscular Hemoglobin 29 25-34 pg Mean Corpuscular Hemoglobin Concent 35 32-36 g/dL Red Cell Distribution Width 13.2 10.0-14.5 % Platelet Count 254 130-400 10^3/uL Mean Platelet Volume 10.3 9.0-12.2 fL Immature Granulocyte % (Auto) 0 % Neutrophils (%) (Auto) 45 42-75 % Lymphocytes (%) (Auto) 46 H 12-44 % Monocytes (%) (Auto) 7 0-12 % Eosinophils (%) (Auto) 1 0-10 % Basophils (%) (Auto) 1 0-10 % Neutrophils # (Auto) 3.2 1.8-7.8 10^3/uL Lymphocytes # (Auto) 3.2 1.0-4.0 10^3/uL Monocytes # (Auto) 0.5 0.0-1.0 10^3/uL Eosinophils # (Auto) 0.1 0.0-0.3 10^3/uL Basophils # (Auto) 0.0 0.0-0.1 10^3/uL Immature Granulocyte # (Auto) 0.0 0.0-0.1 10^3/uL Sodium Level 142 135-145 MMOL/L Potassium Level 3.5 L 3.6-5.0 MMOL/L Chloride Level 107 98-107 MMOL/L Carbon Dioxide Level 23 21-32 MMOL/L Anion Gap 12 5-14 MMOL/L Blood Urea Nitrogen 15 7-18 MG/DL Creatinine 1.01 0.60-1.30 MG/DL Estimat Glomerular Filtration Rate 66 BUN/Creatinine Ratio 15 Glucose Level 107 H 70-105 MG/DL Calcium Level 9.6 8.5-10.1 MG/DL Magnesium Level 1.8 1.6-2.4 MG/DL Troponin I < 0.028 <0.028 NG/ML My Orders Orders - KINGSLEY CURTIS MD Ekg Tracing (12/19/22 10:08) Monitor-Rhythm Ecg Trace Only (12/19/22 10:08) Basic Metabolic Panel (12/19/22 10:20) Cbc With Automated Diff (12/19/22 10:20) Magnesium (12/19/22 10:20) Troponin I Ayden (12/19/22 10:20) Ed Iv/Invasive Line Start (12/19/22 10:20) Vital Signs/I&O 12/19/22 12/19/22 10:05 12:21 Temp 36.3 Pulse 117 101 Resp 18 16 B/P (MAP) 129/89 (102) 135/75 Pulse Ox 98 97 O2 Delivery Room Air Blood Pressure Mean: 102 Progress Progress Note : Progress Note ECG was interpreted by me as A-Flutter with mild tachycardia. CBC, BMP, Mag, and troponin were all reviewed and interpreted by me as unremarkable. Patients recent cath report was reviewed and demonstrated no obstructive CAD. Dr. Ruvalcaba, primary ems manager and ems manager lead front end developer, presented to the ER to see the patient and discuss the case. He reviewed ECG and made recommendations reflected in the discharge instructions. Patient could not receive cardioversion because she had not been compliant with anticoagulation. Initial ECG Impression Date: Dec 19, 2022 Initial ECG Impression Time: 10:09 Initial ECG Rate: 116 Initial ECG Rhythm: A Fib/Flutter Comment Atrial fibrillation with mild tachycardia. No ST elevation or depression. Departure Impression Primary Impression: Paroxysmal atrial flutter Additional Impression: Chest discomfort Disposition: 01 HOME, SELF-CARE Condition: Stable Departure-Patient Inst. Decision time for Depature: 11:59 Referrals: JIMY BENNETT MD (PCP/Family) Primary Care Physician Patient Instructions: Atrial flutter Add. Discharge Instructions: Continue Xarelto continuously. Do not skip doses unless otherwise instructed by a physician or you have some type of bleeding event. Per Dr. Ruvalcaba's instructions, take an extra dose of Cardizem (diltiazem) tonight. Also restart your propafenone (Rythmol). Return to care if you have worsening symptoms despite following these instructions. All discharge instructions reviewed with patient and/or family. Voiced understanding. Copy Copies To 1: ERIKA RUVALCABA MD Copies To 2: JIMY BENNETT MD, JOSHUA T MD Dec 19, 2022 11:32
--- NOTE | 2022-12-19 12:02 | Consultation-Cardiology ---
HPI-Cardiology Cardiology Consultation Date of Consultation 12/19/22 Date of Admission Time Seen by Provider: 11:57 Indication: Atrial flutter HPI 57-year-old JOSE R with history of paroxysmal atrial fibrillation/flutter, patient reported that she did not take her medication for the past 5 to 6 days, yesterday started to have palpitation and felt her heart racing. Came in to the emergency room and noted to be in atrial flutter with rapid ventricular response. She took her Cardizem this morning. Having mild fatigue, no chest pain. Did not take Xarelto for the past 5 to 6 days Home Medications & Allergies Allergies: Coded Allergies: Latex, Natural Rubber (Verified Allergy, Intermediate, Shortness of Breath, PARALIZED DIAHPHRAM, 02/17/22) Home Medication List Reviewed: Yes MHA-Intwlv-Sqggbt Hx Patient Social History Marital Status: single Employed/Student: employed [employer] Smoke Exposure: No Recent Hopitalizations: No Alcohol Use?: No Immunizations Up To Date Tetanus Booster (TDap): Less than 5yrs Date of Pneumonia Vaccine: Feb 05, 2020 Date of Influenza Vaccine: May 04, 2020 Past Medical History Discussed below Family Medical History Significant Family History: No Pertinent Family Hx Family History: Colon cancer Review of Systems-General Review of Systems Constitutional: no symptoms reported EENTM: see HPI, no symptoms reported Respiratory: no symptoms reported, see HPI Cardiovascular: see HPI, chest pain; No edema, No Hx of Intervention; palpitations; No syncope, No vascular heart diseas, No other Gastrointestinal: no symptoms reported, see HPI Genitourinary: no symptoms reported, see HPI Musculoskeletal: no symptoms reported Skin: no symptoms reported Psychiatric/Neurological: No Symptoms Reported Reviewed Test Results Reviewed Test Results Lab Laboratory Tests Test 12/19/22 10:11 Range/Units White Blood Count 7.1 4.3-11.0 10^3/uL Red Blood Count 5.25 H 3.80-5.11 10^6/uL Hemoglobin 15.4 11.5-16.0 g/dL Hematocrit 45 35-52 % Mean Corpuscular Volume 85 80-99 fL Mean Corpuscular Hemoglobin 29 25-34 pg Mean Corpuscular Hemoglobin Concent 35 32-36 g/dL Red Cell Distribution Width 13.2 10.0-14.5 % Platelet Count 254 130-400 10^3/uL Mean Platelet Volume 10.3 9.0-12.2 fL Immature Granulocyte % (Auto) 0 % Neutrophils (%) (Auto) 45 42-75 % Lymphocytes (%) (Auto) 46 H 12-44 % Monocytes (%) (Auto) 7 0-12 % Eosinophils (%) (Auto) 1 0-10 % Basophils (%) (Auto) 1 0-10 % Neutrophils # (Auto) 3.2 1.8-7.8 10^3/uL Lymphocytes # (Auto) 3.2 1.0-4.0 10^3/uL Monocytes # (Auto) 0.5 0.0-1.0 10^3/uL Eosinophils # (Auto) 0.1 0.0-0.3 10^3/uL Basophils # (Auto) 0.0 0.0-0.1 10^3/uL Immature Granulocyte # (Auto) 0.0 0.0-0.1 10^3/uL Sodium Level 142 135-145 MMOL/L Potassium Level 3.5 L 3.6-5.0 MMOL/L Chloride Level 107 98-107 MMOL/L Carbon Dioxide Level 23 21-32 MMOL/L Anion Gap 12 5-14 MMOL/L Blood Urea Nitrogen 15 7-18 MG/DL Creatinine 1.01 0.60-1.30 MG/DL Estimat Glomerular Filtration Rate 66 BUN/Creatinine Ratio 15 Glucose Level 107 H 70-105 MG/DL Calcium Level 9.6 8.5-10.1 MG/DL Magnesium Level 1.8 1.6-2.4 MG/DL Troponin I < 0.028 <0.028 NG/ML Physical Exam Physical Exam Vital Signs Vital Signs - First Documented 12/19/22 10:05 Pulse 117 Resp 18 B/P (MAP) 129/89 (102) Pulse Ox 98 Capillary Refill : NONE Height, Weight, BMI Height: '" Weight: lbs. oz. kg; 32.00 BMI Method: General Appearance: No Apparent Distress, WD/WN Eyes: Bilateral Eye Normal Inspection, Bilateral Eye PERRL, Bilateral Eye EOMI HEENT: PERRL/EOMI, Normal ENT Inspection Neck: Normal Inspection Respiratory: Lungs Clear, Normal Breath Sounds, No Accessory Muscle Use Cardiovascular: No Edema, No Murmur, Irregularly Irregular, Tachycardia (Mild) Gastrointestinal: Normal Bowel Sounds, No Organomegaly, No Pulsatile Mass, Non Tender, Soft Back: Normal Inspection, No CVA Tenderness, No Vertebral Tenderness Extremity: Normal Inspection Neurologic/Psychiatric: Alert, Oriented x3, No Motor/Sensory Deficits, Normal Mood/Affect Skin: Normal Color, Warm/Dry Lymphatic: No Adenopathy A/P-Cardiology Admission Diagnosis Chest pain Palpitation Paroxysmal atrial flutter Hypertension Assessment/Plan Chest pain nonspecific etiology, cardiac catheterization was carried out in November 2022 showing nonobstructive disease Palpitations secondary to tachycardia. Paroxysmal atrial fibrillation/flutter Had history of ablation in the remote past, patient had a total of 4 ablation procedures last procedure was done in January 2022, it was an extensive ablation done at that time. Stable had on and off atrial fibrillation and she was seen by Dr. Ferguson, he had adjusted her pacemaker setting for better detection of the atrial fibrillation I recommended titrating the beta-lorna dose. Underwent LENORE with cardioversion in December 05, 2020 and still in sinus rhythm. C/o occasional episode of palpitations. Pacemaker sensitivity was adjusted by Dr. Ferguson. Patient was intolerant to amiodarone, Multaq, reports she failed Sotalol, Tikosyn, Flecainide Intolerant to metoprolol due to generalized fatigue. She was referred to for evaluation, seen by Dr. Sanon. 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 Was hospitalized for 2 weeks, recovering slowly. Underwent cardioversion in February 2022 She had another electrical cardioversion done in May 2022. Patient has stopped her medication about 4 to 5 days ago due to family emergency and her traveling. Currently in atrial flutter with a heart rate 110-115. She took her Cardizem this morning I educated her on compliance with medication and the importance of taking her oral anticoagulation mainly. I will restart propafenone and Xarelto and instructed her to take additional Cardizem CD 180 tonight. Okay for discharge and follow-up as an outpatient 2D echo was done on May 30, 2022 with normal LV size, EF 55 to 60%, PA pressure 20 mmHg Sinus node dysfunction, history of [employer] dual-chamber pacemaker, functioning normally. Had it implanted in [place], continue to monitor at this time Generalized fatigue and loss of energy. Lipid profile done on August 26, 2021 showing total cholesterol 168, triglyceride 91, HDL 45, LDL 116. 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 Had EGD with Dr Valles Generalized fatigue and loss of energy. Hypothyroidism, followed and managed by primary care physician COPD, maintained on bronchodilator. Followed and managed by primary care physician Status post Covid 19 infection in June 2020, still complaining of some dyspnea and fatigue since that infection Nonobstructive carotid artery stenosis per carotid duplex done November 2021. Recent kidney stone, underwent cystoscopy and right ureteral stone manipulation and insertion of right double-J with Dr. Jenkins on 02/06/22. s/p stent retrieval ERIKA DE LA ROSA MD Dec 19, 2022 12:02
[2022-12-19 12:21] VITALS: BP 135/75
== END 2022-12-19 12:21 | disposition home or self-care (01) ==
LOC: EDUNIT# 10:01 → ER 10:03
DX: I48.92 Unspecified atrial flutter (principal); Z91.040 Latex allergy status; Z28.310 Unvaccinated for COVID-19
CPT/HCPCS: 36415; 80048; 83735; 84484; 85025; 93005; 93041

== ENCOUNTER 2022-12-31 08:19 | Day surgery (SDC) | payer BC ==
[~2022-12-31] VITALS: Ht 162.6 cm; Wt 88.9 kg
[2022-12-31] MEDS ORDERED: NS IV 1000 ML 1,000 ML IV SCH ×2 (08:30→08:45)
[2022-12-31] MEDS ORDERED: LIDOCAINE 2% VISCOUS 15 ML UDC ONE (08:39)
[2022-12-31] MEDS ORDERED: NS IV 1000 ML 1,000 ML ONE (08:39)
[2022-12-31 08:59] VITALS: BP 135/95
[2022-12-31 09:09] LABS: HEMATOCRIT 43 % (35-52); HEMOGLOBIN 14.5 g/dL (11.5-16.0); MEAN CORPUSCULAR HEMOGLOBIN 29 pg (25-34); MEAN CORPUSCULAR HGB CONC 34 g/dL (32-36); MEAN CORPUSCULAR VOLUME 86 fL (80-99); MEAN PLATELET VOLUME 10.4 fL (9.0-12.2); PLATELET COUNT 243 10^3/uL (130-400); WHITE BLOOD COUNT 7.1 10^3/uL (4.3-11.0)
--- NOTE | 2022-12-31 09:15 | Diagnostic Imaging Report ---
INDICATION: Cardioversion. TIME OF EXAM: 8:57 AM Correlation is made with prior chest from 11/14/2022. Heart size normal. Dual-lead left subclavian cardiac pacemaker remains in place. Lungs are clear. No infiltrates are seen. There is no effusion or pneumothorax detected. IMPRESSION: No acute cardiopulmonary process is detected. Dictated by: Dictated on workstation # [id number]
[2022-12-31] MEDS ORDERED: ONDANSETRON 4 MG/2 ML (SDV) Z0FRAN ONE (09:17)
[2022-12-31] MEDS ORDERED: proPOfol 200 MG/20 ML (DIPRIVAN) VIAL IV ONE (09:17)
[2022-12-31 09:20] LABS: INR 1.6 (0.8-1.4); PROTHROMBIN TIME PATIENT 19.1 SEC (12.2-14.7)
[2022-12-31 09:29] LABS: ALBUMIN 4.4 GM/DL (3.2-4.5); BILIRUBIN,TOTAL 0.6 MG/DL (0.1-1.0); CALCIUM 9.4 MG/DL (8.5-10.1); CREATININE SERUM 0.88 MG/DL (0.60-1.30); POTASSIUM 3.9 MMOL/L (3.6-5.0); TOTAL PROTEIN 7.5 GM/DL (6.4-8.2)
[2022-12-31] MEDS ORDERED: ONDANSETRON 4 MG/2 ML (SDV) Z0FRAN IVP ONE (09:30)
[2022-12-31] MEDS ORDERED: PROM12.511 PO (09:44)
[2022-12-31] MEDS ORDERED: DILT180C84 PO (09:44)
[2022-12-31] MEDS ORDERED: TIOT4MIS2 IH (09:44)
[2022-12-31] MEDS ORDERED: FLUT9.9S NS (09:44)
[2022-12-31] MEDS ORDERED: POTA-177 PO (09:44)
[2022-12-31] MEDS ORDERED: RT-ALBUINH INH (09:44)
[2022-12-31] MEDS ORDERED: DILT240C90 PO (09:44)
[2022-12-31] MEDS ORDERED: PROP225T2 PO (09:44)
--- NOTE | 2022-12-31 09:45 | Cardiac Procedure Note-CS/ASA ---
Pre-Procedure Note Pre-Op Procedure Note Date of Available H&P: Dec 30, 2022 Date H&P Reviewed: Dec 31, 2022 Time H&P Reviewed: 09:45 History & Physical: H&P Reviewed, Patient Examed, No changes noted Pre-Operative Diagnosis: A flutter Moderate Sedation PreProcedure Time 09:45 ASA Score 3 Airway Lungs Heart ASA score ASA 1: a normal healthy patient ASA 2: a patient with a mild systemic disease (mid diabetes, controlled hypertension, obesity ASA 3: a patient with a severe systemic disease that limits activity (angina, COPD, prior Myocardial infarction) ASA 4: a patient with an incapacitating disease that is a constant threat to life (CHF, renal failure) ASA 5: a moribund patient not expected to survive 24 hrs. (ruptured aneurysm) ASA 6: a declared brain- patient whose organs are being harvested. For emergent operations, add the letter E after the classification Mallampati Classification Grade 3 Sedation Plan Analgesia, Amnesia, Plan communicated to team members, Discussed options with patient/fam, Discussed risks with patient/fam The patient is an appropriate candidate to undergo the planned procedure, sedation, and anesthesia. The patient immediately re-assessed prior to indication. ERIKA DE LA ROSA MD Dec 31, 2022 09:45
[2022-12-31] MEDS ORDERED: MIDAZOLAM 2 MG/2 ML (VERSED) VIAL ONE (10:35)
--- NOTE | 2022-12-31 11:02 | Discharge Inst-Post CATH ---
Discharge Inst-CATH/EP Problems Reviewed?: Yes Post Cardiac Cath/EP D/C Inst Follow Up/Plan Appointment with Dr. Ruvalcaba's office in 2 to 4 weeks <b>CARDIAC CATH/EP PROCEDURE DISCHARGE INSTRUCTIONS</b> ACTIVITY * Go Home directly and rest. * Limit activity of the leg (or wrist if it was used) for 7 days including aer obics, swimming, jogging, bicycling, etc. * Restrict stair-climbing for 7 days if possible, if not, climb up with your non-cath leg, then bring together on the same step. * Avoid lifting, pushing, pulling or excessive movement of the affected extremi ty for 7 days. * Customary sexual activity may be resumed after 2 days-use caution not to use a position that strains or causes pain to the affected extremity. * No driving for 24 hours. * NO SMOKING. * Avoid straining for bowel movements for 7 days. * Gentle walking on level ground is allowed. * Returning to work will depend on the type of procedure and the results. Your doctor will discuss this with you. CALL YOUR DOCTOR FOR ANY OF THE FOLLOWING: *If bleeding from the puncture site occurs- Apply gentle pressure to site with clean cloth and call your doctor or EMS. * If a knot or lump forms under the skin, increases in size, or causes pain. * If bruising appears to be worsening or moving further down your leg instead of disappearing. * Temperature above 101 F. CARE OF YOUR GROIN INCISION; * Bruising or purple discoloration of the skin near the puncture site is common. * You may shower only, no bathtub bathing for 5 days. Be careful to avoid slipping as your leg may feel stiff. * If a closure device was used on your femoral artery, please see the attached guide regarding care of the device and your leg. * Leave dressing on FOR 24 hours. CARE OF YOUR WRIST INCISION; * Bruising or purple discoloration of the skin near the puncture site is common. * You may shower. * DO NOT submerge wrist. * Leave dressing on FOR 24 hours. ERIKA RUVALCABA MD Dec 31, 2022 11:02
--- NOTE | 2022-12-31 11:04 | Cardioversion ---
Cardioversion PROCEDURE PHYSICIAN: Erika Ruvalcaba DATE OF PROCEDURE: 12/31/22 DIRECT EXTERNAL ELECTRICAL CARDIOVERSION: Indications: Atrial flutter Preoperative diagnoses: Atrial flutter Postoperative diagnosis: Sinus rhythm, Successful Electrical Cardioversion History: Anesthesia: By Anesthesia services Complications: None Specimen: None Contrast: 0 Flouroscopy: none Procedure Details: 57-year-old lady with paroxysmal atrial fibrillation and atrial flutter, has been in atrial flutter with borderline tachycardia, becoming more symptomatic and short of breath, EKG preop showed atrial flutter with a heart rate 110. Had a LENORE showed no clot or thrombus within the left atrium or left atrial appendage. Cardiac cardioversion was advised. The patient was brought the [employer] after informed consent was taken, all the risks and complications were explained including the risk of stroke. Electrical cardioversion was carried out with anesthesia support with propofol. 120 joules of synchronized shock was delivered through external patches which promptly restored sinus rhythm. The patient tolerated the procedure well. Conclusions: Successful cardioversion and terminating atrial flutter Final Diagnosis: Paroxysmal atrial flutter Paroxysmal atrial fibrillation Palpitation Hypertension ERIKA RUVALCABA MD Dec 31, 2022 11:04
[2022-12-31] MEDS ORDERED: LIDOCAINE 2% VISCOUS 15 ML UDC PO ONE (11:45)
[2022-12-31 12:15] VITALS: BP 114/79
--- NOTE | 2022-12-31 14:25 | Anesthesia-General Post-Op ---
MAC Patient Condition Mental Status/LOC: Same as Preop Cardiovascular: Satisfactory Nausea/Vomiting: Absent Respiratory: Satisfactory Pain: Controlled Complications: Absent Post Op Complications Complications None Follow Up Care/Instructions Patient Instructions None needed. Anesthesiology Discharge Order Discharge Order Patient was doing well after the procedure with no complaints, stable vital signs, no apparent adverse anesthesia problems. No complications reported per nursing. JO MOORE 21, 2023 14:25
== END 2022-12-31 13:20 | disposition home or self-care (01) ==
LOC: CATH 08:19 → CSD 12:07 → CATH 13:20
PROVIDERS: ATTEND Internal Medicine Cardiovascular Disease
DX: I48.92 Unspecified atrial flutter (principal); I48.0 Paroxysmal atrial fibrillation; R00.2 Palpitations; I10 Essential (primary) hypertension; K21.9 Gastro-esophageal reflux disease without esophagitis; E03.9 Hypothyroidism, unspecified; J44.9 Chronic obstructive pulmonary disease, unspecified; I65.23 Occlusion and stenosis of bilateral carotid arteries; I25.10 Atherosclerotic heart disease of native coronary artery without angina pectoris; I49.5 Sick sinus syndrome; R53.83 Other fatigue; E78.2 Mixed hyperlipidemia; Z86.16 Personal history of COVID-19; Z79.899 Other long term (current) drug therapy; Z95.0 Presence of cardiac pacemaker; Z28.310 Unvaccinated for COVID-19
CPT/HCPCS: 36415; 71045; 80053; 80061; 84443; 85027; 85610; 85730; 87081; 92960; 93005; 93312

== ENCOUNTER 2023-01-31 18:43 | Inpatient (IN) | payer MEDICARE, MEDICAID ==
[~2023-01-31] VITALS: Ht 162.6 cm; Wt 89.6 kg
[~2023-01-31 18:43] MED LIST changes: +DILT180C84 PO; +DILT240C90 PO; +FLUT9.9S NS; +POTA-185 PO; -POTA10TA PO; +PROM12.511 PO; +PROP225T2 PO; +TIOT4MIS2 IH
[2023-01-31] MEDS ORDERED: CEFEPIME INJECTION 1,000 MG in NS (IVPB) 50 ML 50 ML IV ONE (19:00)
[2023-01-31] MEDS ORDERED: ASPIRIN 81 MG CHEWABLE TABLET PO ONE (19:00)
[2023-01-31] MEDS ORDERED: LACTATED RINGERS 1,000 ML IV ONE ×2 (19:00→20:15)
[2023-01-31] MEDS ORDERED: NITROGLYCERIN 0.4 MG SL TABS BTL 25'S SL PRN (19:00)
[2023-01-31 19:05] LABS: BASOPHILS % (AUTO) 0 % (0-10); EOSINOPHILS # (AUTO) 0.2 10^3/uL (0.0-0.3); EOSINOPHILS % (AUTO) 2 % (0-10); HEMATOCRIT 44 % (35-52); HEMOGLOBIN 14.7 g/dL (11.5-16.0); LYMPHOCYTES # (AUTO) 3.6 10^3/uL (1.0-4.0); LYMPHOCYTES % (AUTO) 28 % (12-44); MEAN CORPUSCULAR HEMOGLOBIN 29 pg (25-34); MEAN CORPUSCULAR HGB CONC 34 g/dL (32-36); MEAN CORPUSCULAR VOLUME 87 fL (80-99); MEAN PLATELET VOLUME 10.2 fL (9.0-12.2); MONOCYTES # (AUTO) 1.1 10^3/uL (0.0-1.0); MONOCYTES % (AUTO) 9 % (0-12); NEUTROPHILS # (AUTO) 7.8 10^3/uL (1.8-7.8); NEUTROPHILS % (AUTO) 61 % (42-75); PLATELET COUNT 287 10^3/uL (130-400); WHITE BLOOD COUNT 12.8 10^3/uL (4.3-11.0)
--- NOTE | 2023-01-31 19:21 | ED Cardiac General ---
History of Present Illness General Chief Complaint: Chest Pain Stated Complaint: CHEST PAIN Nursing Triage Note: pt to ed with c/o sob for 3 weeks, chest pain that started this am and got worse this afternoon in the center of her chest Source: patient History of Present Illness Date Seen by Provider: Jan 31, 2023 Time Seen by Provider: 18:50 Initial Comments PT ARRIVES VIA POV FROM HOME PT C/O CHEST PAIN IN CENTER OF CHEST SINCE AROUND 1400 TODAY SHE HAS FELT WEAK AND TIRED AND LIGHTHEADED ALL DAY SHE HAS HAD A NON-PRODUCTIVE COUGH X 3 WEEKS NO FEVER/SWEATS/CHILLS SHE HAS HAD INCREASED SHORTNESS OF BREATH TODAY NO SWELLING IN LEGS/ FEET TODAY, BUT HAS SOME SWELLING OFF AND ON ALL THE TIME NO SYNCOPE + NAUSEA, NO VOMITING PT HAS ATRIAL FIB/FLUTTER, IS IN XARELTO, CARDIZEM, PROPAFENONE ( RHYTHMOL), DIURETIC AND ASPIRIN. SHE HAS A PACEMAKER IN PLACE. SHE HAS HISTORY OF CHF. SHE WEARS O2 AT 2L/NC ALL THE TIME, BUT ARRIVES WITHOUT ANY OXYGEN SHE STATES SHE HAS NEVER SMOKED BUT HAS COPD AND A PARALYZED RIGHT DIAPHRAGM SHE HAS NOT MISSED ANY DOSES OF HER MEDICATIONS SHE HAS HAD CARDIAC ABLATIONS X 4 SHE HAD A CARDIOVERSION DONE BY DR. DE LA ROSA 12/31/22 AND PT STATES THAT IT WORKED, AND DR. DE LA ROSA INCREASED HER CARDIZEM TO 2 PILLS IN THE MORNING AND 1 AT NIGHT, AnD INCREASED PROPAFENONE DOSE. SHE WAS DOING WELL UNTIL SHE STARTED HAVING PROBLEMS WITH THE COUGH SHE WENT TO [facility] AND SENT TO [facility] ON Thursday01/27/23 FOR COUGH--SHE WAS PRESCRIBED AMOXIL AND A COUGH MEDICATION BUT IS NOT ANY BETTER. SHE HAS NOT ATTEMPTED TO CONTACT HER PCP OR DR. DE LA ROSA FOR THIS PROBLEM SHE HAD AN APPOINTMENT WITH DR. DE LA ROSA LAST THURSDAY BUT MISSED IT AND WENT TO [facility] IN [place] FOR HER COUGH. PCP: DR. BENNETT IN [place] DEBONING TEAM LEADER: DR. DE LA ROSA Allergies and Home Medications Allergies Coded Allergies: Latex, Natural Rubber (Verified Allergy, Intermediate, Shortness of Breath, PARALIZED DIAHPHRAM, 02/17/22) Patient Home Medication List Home Medication List Reviewed: Yes Albuterol Sulfate (Albuterol Sulfate) 2.5 Mg/3 Ml (0.083 %) Vial.neb, 3 ML NEB Q4H PRN for SHORTNESS OF BREATH, (Reported) Entered as Reported by: LEOBARDO CARLIN on 03/10/22 155 Albuterol Sulfate (Ventolin Hfa) 1 Puff Puff, 2 PUFF INH Q4H PRN for SHORTNESS OF BREATH, (Reported) Entered as Reported by: JORDAN CEDILLO on 12/31/22 0944 Clonidine HCl (Clonidine HCl) 0.1 Mg Tablet, 0.1 MG PO BID PRN for BP OVER 140/90, (Reported) Entered as Reported by: LEOBARDO CARLIN on 08/26/21 104 Diazepam (Diazepam) 5 Mg Tablet, 5 MG PO BID PRN for ANXIETY, (Reported) Entered as Reported by: LEOBARDO CARLIN on 08/26/21 104 Diltiazem HCl (Diltiazem 24Hr Cd) 180 Mg Cap.er.24h, 180 MG PO HS, (Reported) Entered as Reported by: JORDAN CEDILLO on 12/31/22 09 Diltiazem HCl (Diltiazem 24Hr Cd) 240 Mg Cap.er.24h, 240 MG PO DAILY, (Reported) Entered as Reported by: JORDAN CEDILLO on 12/31/22 0944 Docusate Sodium (Colace) 100 Mg Capsule, 100 MG PO HS, (Reported) Entered as Reported by: RAJAN SWANN on 10/13/22 1711 Fish Oil/Dha/Epa (Fish Oil 1,200 mg Fish Oil) 1,200 Mg-144 Mg-216 Mg Capsule, 1 EACH PO HS, (Reported) Entered as Reported by: LEOBARDO CARLIN on 03/10/221557 Fluticasone Propionate (Flonase Allergy Relief) 50 Mcg/Actuation [place].susp, 1 SPRAY NS DAILY PRN for CONGESTION, (Reported) Entered as Reported by: JORDAN CEDILLO on 12/31/22 09 Furosemide (Furosemide) 40 Mg Tablet, 40 MG PO HS, (Reported) Entered as Reported by: LEOBARDO CARLIN on 03/10/22 155 Levocetirizine Dihydrochloride (Levocetirizine Dihydrochloride) 5 Mg Tablet, 5 MG PO HS, (Reported) Entered as Reported by: KERLINE JORGENSEN on 05/30/22 1012 Pantoprazole Sodium (Pantoprazole Sodium) 40 Mg Tablet.dr, 40 MG PO HS, (Reported) Entered as Reported by: MYRTLE VANN on 02/04/22 1240 Potassium Chloride (Potassium Chloride) 10 Meq Tab.er.prt, 10 MEQ PO HS, (Reported) Entered as Reported by: JORDAN CEDILLO on 12/31/22943 Promethazine HCl (Promethazine HCl) 12.5 Mg Tablet, 12.5 MG PO Q6H PRN for NAUSEA/VOMITING-1ST LINE, (Reported) Entered as Reported by: JORDAN CEDILLO on 12/31/22943 Propafenone HCl (Propafenone HCl) 225 Mg Tablet, 225 MG PO TID, (Reported) Entered as Reported by: JORDAN CEDILLO on 12/31/22943 Rivaroxaban (Xarelto) 20 Mg Tablet, 20 MG PO 1900, (Reported) Entered as Reported by: LEOBARDO CARLIN on 03/10/221557 Sumatriptan Succinate (Sumatriptan Succinate) 50 Mg Tablet, 50 MG PO UD PRN for MIGRAINE, (Reported) Entered as Reported by: LEOBARDO CARLIN on 03/10/221557 Tiotropium [place] (Spiriva Respimat 2.5MCG/ACTUATION) 2.5 Mcg/Actuation Mist.inhal, 2 PUFF IH DAILY PRN for SHORTNESS OF BREATH, (Reported) Entered as Reported by: JORDAN CEDILLO on 12/31/22943 Vitamin E Mixed (Vitamin E) 1,000 Unit Capsule, 1,000 UNIT PO HS, (Reported) Entered as Reported by: LEOBARDO CARLIN on 03/10/221557 [Vit C/Vit D/Zinc] , 1 EA PO HS, (Reported) Entered as Reported by: LEOBARDO CARLIN on 03/10/221557 Review of Systems Review of Systems Constitutional: see HPI; No chills, No diaphoresis; dizziness; No fever; malaise, weakness EENTM: No Symptoms Reported Respiratory: See HPI, Cough, Shortness of Air Cardiovascular: See HPI, Chest Pain; Denies Edema; Irregular Heart Rate, Lightheadedness, Palpitations; Denies Syncope Gastrointestinal: See HPI; Denies Abdominal Pain; Nausea; Denies Vomiting Genitourinary: No Symptoms Reported Musculoskeletal: no symptoms reported Skin: no symptoms reported Psychiatric/Neurological: No Symptoms Reported Endocrine: No Symptoms Reported Past Xpnausk-Fzwpfx-Kawvta Hx Patient Social History Tobacco Use?: No Substance use?: No Alcohol Use?: No Immunizations Up To Date Tetanus Booster (TDap): Less than 5yrs PED Vaccines UTD: Yes First/Initial COVID19 Vaccinat: NONE Second COVID19 Vaccination Arley: NONE Third COVID19 Vaccination Date: NONE Seasonal Allergies Seasonal Allergies: Yes Past Medical History Surgery/Hospitalization HX: pacemaker, CHF, A-fib, Cardiac cath, 4 cardiac ablasions, hysterectomy, appendectomy, tonsillectomy, titi, hiatal hernia, ureteral stent, d&c,BLADDER SLINGafib, chf, copd, renal stones, htn, high cholesterol, liver disease,barrettsesophagus, hypothryoidism Surgeries: Yes Abdominal, Appendectomy, Bladder Surgery, Cardiac, Gallbladder, Hysterectomy, Pacemaker, Renal, Tonsillectomy Respiratory: Yes (HX PARALYZED RT DIAPHRAGM) Pneumonia, Chronic Bronchitis, COPD Currently Using CPAP: No Currently Using BIPAP: No Cardiac: Yes (PACEMAKER; NSTEMI) Atrial Fibrillation, Heart Attack, High Cholesterol, Hypertension Neurological: Yes (Right diaphragmatic paralysis) Stroke Female 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 Disorders: Denies 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 Sexually Transmitted Disease: No Genitourinary: Yes Kidney Stones Gastrointestinal: Yes Gastroesophageal Reflux, Reina's Esophagus, Hemorrhoids, Hiatal Hernia Musculoskeletal: Yes Degenerate Disk Disease, Back Injury, Chronic Back Pain Endocrine: Yes Hypothyroidsim HEENT: No Loss of Vision: Denies Hearing Impairment: Denies Cancer: Yes Colon Psychosocial: Yes Anxiety, PTSD, Depression Integumentary: Yes Psoriasis Blood Disorders: No Family Medical History Colon cancer No Pertinent Family Hx PT WITH A MULTITUDE OF VISITS FOR VARIOUS COMPLAINTS OF 01/31/23, SHE HAS HAD 43 VISITS SINCE HER FIRST VISIT HERE JULY 2020. Physical Exam Vital Signs Vital Signs - First Documented 01/31/23 01/31/23 18:50 18:55 Temp 36.9 Pulse 134 Resp 22 B/P (MAP) 120/87 (98) Pulse Ox 92 O2 Delivery Room Air O2 Flow Rate 2.00 Capillary Refill : Less Than 3 Seconds Height, Weight, BMI Height: '" Weight: lbs. oz. kg; 33.00 BMI Method: General Appearance: No Apparent Distress, WD/WN, Other (CONSTANT, NON- PRODUCTIVE COUGH. ) Respiratory: Normal Breath Sounds, Other (MILDLY DYSPNEIC, BUT IS CONSTANTLY COUGHING) Cardiovascular: No Edema, No JVD, No Murmur, Normal Peripheral Pulses, Tachycardia Gastrointestinal: Non Tender, Soft Extremity: Normal Capillary Refill, Normal Inspection, Normal Range of Motion, Non Tender, No Calf Tenderness, No Pedal Edema Neurologic/Psychiatric: Alert, Oriented x3, No Motor/Sensory Deficits, Normal Mood/Affect, artificial cherry maker II-XII Norm as Tested Skin: Normal Color, Warm/Dry Focused Exam Lactate Level 01/31/23 19:10: Lactic Acid Level 1.58 Lactic Acid Level Laboratory Tests Test 01/31/23 19:10 Lactic Acid Level 1.58 MMOL/L (0.50-2.00) Progress/Results/Core Measures Results/Orders Lab Results Laboratory Tests Test 01/31/23 18:54 01/31/23 18:55 01/31/23 19:04 01/31/23 19:10 Range/Units White Blood Count 12.8 H 4.3-11.0 10^3/uL Red Blood Count 5.05 3.80-5.11 10^6/uL Hemoglobin 14.7 11.5-16.0 g/dL Hematocrit 44 35-52 % Mean Corpuscular Volume 87 80-99 fL Mean Corpuscular Hemoglobin 29 25-34 pg Mean Corpuscular Hemoglobin Concent 34 32-36 g/dL Red Cell Distribution Width 13.1 10.0-14.5 % Platelet Count 287 130-400 10^3/uL Mean Platelet Volume 10.2 9.0-12.2 fL Immature Granulocyte % (Auto) 1 % Neutrophils (%) (Auto) 61 42-75 % Lymphocytes (%) (Auto) 28 12-44 % Monocytes (%) (Auto) 9 0-12 % Eosinophils (%) (Auto) 2 0-10 % Basophils (%) (Auto) 0 0-10 % Neutrophils # (Auto) 7.8 1.8-7.8 10^3/uL Lymphocytes # (Auto) 3.6 1.0-4.0 10^3/uL Monocytes # (Auto) 1.1 H 0.0-1.0 10^3/uL Eosinophils # (Auto) 0.2 0.0-0.3 10^3/uL Basophils # (Auto) 0.0 0.0-0.1 10^3/uL Immature Granulocyte # (Auto) 0.1 0.0-0.1 10^3/uL Prothrombin Time 16.5 H 12.2-14.7 SEC INR Comment 1.3 0.8-1.4 Activated Partial Thromboplast Time 33 24-35 SEC D-Dimer 0.26 0.00-0.49 UG/ML Sodium Level 143 135-145 MMOL/L Potassium Level 3.6 3.6-5.0 MMOL/L Chloride Level 111 H 98-107 MMOL/L Carbon Dioxide Level 21 21-32 MMOL/L Anion Gap 11 5-14 MMOL/L Blood Urea Nitrogen 27 H 7-18 MG/DL Creatinine 1.06 0.60-1.30 MG/DL Estimat Glomerular Filtration Rate 62 BUN/Creatinine Ratio 25 Glucose Level 88 70-105 MG/DL Calcium Level 9.0 8.5-10.1 MG/DL Corrected Calcium 9.0 8.5-10.1 MG/DL Magnesium Level 2.0 1.6-2.4 MG/DL Total Bilirubin 0.3 0.1-1.0 MG/DL Aspartate Amino Transf (AST/SGOT) 19 5-34 U/L Alanine Aminotransferase (ALT/SGPT) 29 0-55 U/L Alkaline Phosphatase 132 40-136 U/L Total Creatine Kinase 101 29-168 U/L Creatine Kinase MB 1.5 <6.6 NG/ML Myoglobin 47.2 10.0-92.0 NG/ML Troponin I < 0.028 <0.028 NG/ML B-Type Natriuretic Peptide < 10.0 <100.0 PG/ML Total Protein 7.2 6.4-8.2 GM/DL Albumin 4.0 3.2-4.5 GM/DL Amylase Level 33 25-125 U/L Lipase 38 8-78 U/L Influenza Type A (RT-PCR) Not Detected Not Detecte Influenza Type B (RT-PCR) Not Detected Not Detecte SARS-CoV-2 RNA (RT-PCR) Not Detected Not Detecte Urine Color YELLOW Urine Clarity SL CLOUDY Urine pH 6.0 5-9 Urine Specific [place] 1.025 H 1.016-1.022 Urine Protein NEGATIVE NEGATIVE Urine Glucose (UA) NEGATIVE NEGATIVE Urine Ketones NEGATIVE NEGATIVE Urine Nitrite NEGATIVE NEGATIVE Urine Bilirubin NEGATIVE NEGATIVE Urine Urobilinogen 0.2 < = 1.0 MG/DL Urine Leukocyte Esterase NEGATIVE NEGATIVE Urine RBC (Auto) TRACE-I H NEGATIVE Urine RBC NONE /HPF Urine WBC 0-2 /HPF Urine Squamous Epithelial Cells 5-10 /HPF Urine Crystals PRESENT H /LPF Urine Calcium Oxalate Crystals LARGE H /LPF Urine Amorphous Sediment MOD GENIE URATES H /LPF Urine Bacteria TRACE /HPF Urine Casts NONE /LPF Urine Mucus LARGE H /LPF Urine Culture Indicated CULTURE PENDING Lactic Acid Level 1.58 0.50-2.00 MMOL/L Test 01/31/23 20:32 Range/Units Urine Opiates Screen POSITIVE H NEGATIVE Urine Oxycodone Screen NEGATIVE NEGATIVE Urine Methadone Screen NEGATIVE NEGATIVE Urine Propoxyphene Screen NEGATIVE NEGATIVE Urine Barbiturates Screen NEGATIVE NEGATIVE Ur Tricyclic Antidepressants Screen NEGATIVE NEGATIVE Urine Phencyclidine Screen NEGATIVE NEGATIVE Urine Amphetamines Screen NEGATIVE NEGATIVE Urine Methamphetamines Screen NEGATIVE NEGATIVE Urine Benzodiazepines Screen NEGATIVE NEGATIVE Urine Cocaine Screen NEGATIVE NEGATIVE Urine Cannabinoids Screen NEGATIVE NEGATIVE My Orders Orders - JANETTE CARLOS DO Cbc With Automated Diff (01/31/23 18:47) Magnesium (01/31/23 18:47) Chest 1 View, Ap/Pa Only (01/31/23 18:47) Ekg Tracing (01/31/23 18:47) Comprehensive Metabolic Panel (01/31/23 18:47) Myoglobin Serum (01/31/23 18:47) Protime With Inr (01/31/23 18:47) Partial Thromboplastin Time (01/31/23 18:47) O2 (01/31/23 18:47) Monitor-Rhythm Ecg Trace Only (01/31/23 18:47) Ed Iv/Invasive Line Start (01/31/23 18:47) Creatine Kinase (01/31/23 18:47) Creatine Kinase Mb (01/31/23 18:47) Lipase (01/31/23 18:47) Amylase (01/31/23 18:47) Bnp [place] (01/31/23 18:47) Fibrin Degradation Products (01/31/23 18:47) Troponin I [place] (01/31/23 18:47) Aspirin Chewable Tablet (Baby Aspirin Ch (01/31/23 19:00) Blood Culture (01/31/23 18:55) Sputum Culture (01/31/23 18:55) Urinalysis (01/31/23 18:55) Urine Culture (01/31/23 18:55) Ed Iv/Invasive Line Start (01/31/23 18:55) Ed Iv/Invasive Line Start (01/31/23 18:55) O2 (01/31/23 18:55) Remove Rings In Anticipation O (01/31/23 18:55) Lactic Acid Analyzer (01/31/23 18:55) Lactated Ringers (Lr 1000 Ml Iv Solution (01/31/23 19:00) Cefepime Injection (Maxipime Injection) (01/31/23 19:00) Covid 19 Inhouse Test (01/31/23 18:55) Influenza A And B By Pcr (01/31/23 18:55) Promethazine/ Codeine Syrup (Phenergan W (01/31/23 19:30) Benzonatate Capsule (Tessalon Perles) (01/31/23 19:30) Ed Iv/Invasive Line Start (01/31/23 20:03) Lactated Ringers (Lr 1000 Ml Iv Solution (01/31/23 20:15) Drug Screen Stat (Urine) (01/31/23 20:28) Fentanyl Inj (Sublimaze Injection) (01/31/23 21:00) Diltiazem Drip Pre-Mix (Cardizem Drip Pr (01/31/23 21:00) Digoxin Injection (Lanoxin Injection) (01/31/23 21:00) Ondansetron Injection (Zofran Injectio (01/31/23 21:45) Medications Given in ED Current Medications Medications Dose Ordered Sig/Giselle Route Start Time Stop Time Status Last Admin Dose Admin Aspirin 324 mg ONCE ONCE PO 01/31/23 19:00 01/31/23 19:01 DC 01/31/23 19:11 324 MG Cefepime HCl 1000 mg/Sodium Chloride 50 ml @ 100 mls/hr ONCE ONCE IV 01/31/23 19:00 01/31/23 19:29 DC 01/31/23 19:54 100 MLS/HR Digoxin 0.25 mg ONCE ONCE IV 01/31/23 21:00 01/31/23 21:01 DC 01/31/23 21:21 0.25 MG Fentanyl Citrate 50 mcg ONCE ONCE IVP 01/31/23 21:00 01/31/23 21:01 DC 01/31/23 21:21 50 MCG Lactated Ringer's 1,000 ml @ 0 mls/hr Q0M ONCE IV 01/31/23 19:00 01/31/23 19:01 DC 01/31/23 19:11 1,000 MLS/HR Lactated Ringer's 1,000 ml @ 0 mls/hr Q0M ONCE IV 01/31/23 20:15 01/31/23 20:16 DC 01/31/23 20:31 1,000 MLS/HR Ondansetron HCl 4 mg ONCE ONCE IVP 01/31/23 21:45 01/31/23 21:46 DC 01/31/23 21:57 4 MG Promethazine HCl/ Codeine 5 ml ONCE ONCE PO 01/31/23 19:30 01/31/23 19:31 DC 01/31/23 19:54 5 ML Vital Signs/I&O 01/31/23 01/31/23 01/31/23 18:50 18:55 21:22 Temp 36.9 Pulse 134 128 Resp 22 B/P (MAP) 120/87 (98) 126/93 Pulse Ox 92 94 O2 Delivery Room Air Nasal Cannula O2 Flow Rate 2.00 Blood Pressure Mean: 98 Progress Progress Note : Progress Note VITALS ON ARRIVAL: TEMP 36.9, HR 134, RR 22, BP 120/87, O2 SATS 91-93% ON ROOM AIR CARDIAC WORK UP WELL PULMONARY AND SEPSIS WORK UP INITIATED. GIVEN: -IV FLUIDS -ANTIBIOTICS -COUGH MEDICATIONS -CARDIZEM DRIP -DIGOXIN HEART RATE REMAINS CONSISTENTLY 128-130, WITH WHAT APPEARS TO BE A FLUTTER. BP DID DECREASE TO UPPER 90'S TO LOW 100'S BUT WAS UP TO 120'S/80'S AT TIME OF ADMIT. HEART RATE IS UNCHANGED AT TIME OF ADMIT. O2 SATS IN MID TO UPPER 90'S ON O2 AT 2L/NC PT REMAINS AFEBRILE. PERTINENT LABS: -CBC WITH WBC 12.8, HGB AND PLT NORMAL -CMP WITH BUN 27, OTHER LAB UNREMARKABLE -MG 2.0 -TROPONIN NEGATIVE AND BNP NORMAL -D-DIMER 0.26 -LACTIC ACID 1.58 -UA WITHOUT SIGNS OF INFECTION -COVID/FLU NEGATIVE DISCUSSED TEST RESULTS, NEED FOR ADMIT AND PT IS AGREEABLE TO PLAN REVIEWED PRIOR RECORDS INCLUDING ER VISITS, ADMITS, TESTS/SURGERIES/PROCEDURES. Initial ECG Impression Date: Jan 31, 2023 Initial ECG Impression Time: 18:52 Initial ECG Rate: 133 Initial ECG Rhythm: A Fib/Flutter Initial ECG Intervals SC--NA QRS 86 QT/QTC 203/281 Initial ECG Impression: Atrial Fibrillation w/RVR (A FLUTTER/RVR) Comment COMPLEXES SIMILAR TO PRIOR EPISODES OF ATRIAL FLUTTER. NO ST SEGMENT ELEVATION INTERPRETED BY ME Diagnostic Imaging Comments CXR--PER RADIOLOGIST REPORT AT 1957 FINDINGS: There is a left-sided pacemaker stable. Heart is unchanged. Pulmonary vasculature is normal. There is atelectasis at the bases with no infiltrate or effusion. No pneumothorax. IMPRESSION: No acute process. Reviewed: Reviewed by Me Departure Communication (Admissions) 2043--SPOKE WITH DR. AREVALO, DEBONING TEAM LEADER, ADVISES TO GIVE DIGOXIN AND START ON CARDIZEM DRIP. HE WILL SEE PT IN CONSULT 2045--SPOKE WITH DR. REA, HOSPITALIST, ACCEPTS PT FOR ADMIT. Impression Primary Impression: Atrial flutter with rapid ventricular response Additional Impressions: Chest pain Acute bronchitis Disposition: ADMITTED INPATIENT Condition: Stable Admissions Decision to Admit Reason: Admit from ER (General) Decision to Admit/Date: Jan 31, 2023 Time/Decision to Admit Time: 20:50 Departure-Patient Inst. Referrals: JIMY BENNETT MD (PCP/Family) Primary Care Physician JANETTE CARLOS DO Jan 31, 2023 19:21
[2023-01-31 19:22] LABS: INR 1.3 (0.8-1.4); PROTHROMBIN TIME PATIENT 16.5 SEC (12.2-14.7)
--- NOTE | 2023-01-31 19:26 | Diagnostic Imaging Report ---
INDICATION: Chest pain. EXAMINATION: Chest, 01/31/2023. COMPARISON: 12/31/2022. FINDINGS: There is a left-sided pacemaker stable. Heart is unchanged. Pulmonary vasculature is normal. There is atelectasis at the bases with no infiltrate or effusion. No pneumothorax. IMPRESSION: No acute process. Dictated by: Dictated on workstation # [id number]
[2023-01-31] MEDS ORDERED: PROMETHAZINE/ CODEINE SYRUP 5 ML UDC PO ONE (19:30)
[2023-01-31] MEDS ORDERED: BENZONATATE 100 MG CAPSULE PO SCH (19:30)
[2023-01-31 19:31] LABS: FIBRIN DEGRADATION PRODUCTS 0.26 UG/ML (0.00-0.49)
[2023-01-31 19:37] LABS: ALANINE AMINOTRANSFERASE 29 U/L (0-55); ALKALINE PHOSPHATASE 132 U/L (40-136); AMYLASE 33 U/L (25-125); BILIRUBIN,TOTAL 0.3 MG/DL (0.1-1.0); BUN/CREATININE RATIO 25; CARBON DIOXIDE 21 MMOL/L (21-32); CHLORIDE 111 MMOL/L (98-107); CREATINE KINASE 101 U/L (29-168); CREATINE KINASE MB 1.5 NG/ML (<6.6); CREATININE SERUM 1.06 MG/DL (0.60-1.30); GFR ESTIMATED 62; GLUCOSE 88 MG/DL (70-105); LIPASE 38 U/L (8-78); POTASSIUM 3.6 MMOL/L (3.6-5.0); SODIUM 143 MMOL/L (135-145); TOTAL PROTEIN 7.2 GM/DL (6.4-8.2)
[2023-01-31 19:55] LABS: BILIRUBIN,URINE NEGATIVE (NEGATIVE); CLARITY,URINE SL CLOUDY; COLOR,URINE YELLOW; GLUCOSE, URINE (UA) NEGATIVE (NEGATIVE); KETONES,URINE NEGATIVE (NEGATIVE); LEUKOCYTE ESTERASE ,URINE NEGATIVE (NEGATIVE); NITRITE,URINE NEGATIVE (NEGATIVE); PROTEIN,URINE NEGATIVE (NEGATIVE)
[2023-01-31 20:28] LABS: AMORPHOUS SEDIMENT,UR MOD AMOR URATES /LPF; BACTERIA,URINE TRACE /HPF; CALCIUM OXALATE CRYSTALS,UR LARGE /LPF; WBC,URINE 0-2 /HPF
[2023-01-31] MEDS ORDERED: DIGOXIN 0.25 MG/ML (LANOXIN) 2 ML AMP IV ONE (21:00)
[2023-01-31] MEDS ORDERED: dilTIAZem DRIP PRE-MIX 125 ML IV SCH (21:00)
[2023-01-31] MEDS ORDERED: fentaNYL INJ 100 MCG/2 ML AMP IVP ONE (21:00)
[2023-01-31 21:10] LABS: AMPHETAMINE SCREEN, URINE NEGATIVE (NEGATIVE); BARBITURATE SCREEN URINE NEGATIVE (NEGATIVE); BENZODIAZEPINES SCREEN URINE NEGATIVE (NEGATIVE); CANNABINOID SCREEN, URINE NEGATIVE (NEGATIVE); COCAINE SCREEN URINE NEGATIVE (NEGATIVE); METHADONE STAT NEGATIVE (NEGATIVE); OPIATE SCREEN URINE POSITIVE (NEGATIVE); OXYCODONE STAT NEGATIVE (NEGATIVE); PROPOXYPHENE STAT NEGATIVE (NEGATIVE); TRICYCLIC ANTIDEPRESSANTS SCRE NEGATIVE (NEGATIVE)
[2023-01-31] MEDS ORDERED: ONDANSETRON 4 MG/2 ML (SDV) Z0FRAN IVP ONE (21:45)
[2023-02-01] MEDS ORDERED: ACETAMINOPHEN 500 MG TABLET PO PRN (00:15)
[2023-02-01] MEDS: VASOPRESSIN INJECTION 20 UNIT in NS (IVPB) 100 ML 100 ML IV SCH ×3 (00:15→22:53)
[2023-02-01] MEDS: NOREPINEPHRINE 8 MG/250 ML 250 ML IV SCH ×2 (00:15→16:35)
[2023-02-01] MEDS: dilTIAZem DRIP 125 MG/125 ML DRIP IV SCH ×4 (00:15→22:52)
[2023-02-01] MEDS ORDERED: EPINEPHrine 1 MG INJECTION 4 MG in NS (IVPB) 250 ML 248 ML IV SCH (00:15)
[2023-02-01] MEDS: LACTATED RINGERS 1,000 ML IV SCH ×3 (00:28→15:13)
[2023-02-01] MEDS ORDERED: RIVAROXABAN 20 MG TABLET (XARELTO) PO ONE (00:45)
[2023-02-01] MEDS: CEFEPIME INJECTION 1,000 MG in NS (IVPB) 50 ML 50 ML IV SCH ×4 (02:59→19:48)
[2023-02-01] MEDS: PROMETHAZINE/ CODEINE SYRUP 5 ML UDC PO PRN ×3 (03:35→16:13)
[2023-02-01] MEDS: BENZONATATE 100 MG CAPSULE PO SCH ×3 (05:15→22:27)
[2023-02-01 05:18] LABS: BASOPHILS % (AUTO) 0 % (0-10); EOSINOPHILS # (AUTO) 0.1 10^3/uL (0.0-0.3); EOSINOPHILS % (AUTO) 1 % (0-10); HEMATOCRIT 40 % (35-52); HEMOGLOBIN 13.4 g/dL (11.5-16.0); LYMPHOCYTES # (AUTO) 1.6 10^3/uL (1.0-4.0); LYMPHOCYTES % (AUTO) 14 % (12-44); MEAN CORPUSCULAR HEMOGLOBIN 30 pg (25-34); MEAN CORPUSCULAR HGB CONC 33 g/dL (32-36); MEAN CORPUSCULAR VOLUME 88 fL (80-99); MEAN PLATELET VOLUME 10.3 fL (9.0-12.2); MONOCYTES # (AUTO) 0.6 10^3/uL (0.0-1.0); MONOCYTES % (AUTO) 5 % (0-12); NEUTROPHILS # (AUTO) 8.8 10^3/uL (1.8-7.8); NEUTROPHILS % (AUTO) 79 % (42-75); PLATELET COUNT 198 10^3/uL (130-400); WHITE BLOOD COUNT 11.1 10^3/uL (4.3-11.0)
[2023-02-01 05:36] LABS: ALANINE AMINOTRANSFERASE 23 U/L (0-55); ALBUMIN 3.3 GM/DL (3.2-4.5); ALKALINE PHOSPHATASE 94 U/L (40-136); BILIRUBIN,TOTAL 0.4 MG/DL (0.1-1.0); BUN/CREATININE RATIO 24; CALCIUM 8.4 MG/DL (8.5-10.1); CARBON DIOXIDE 24 MMOL/L (21-32); CHLORIDE 109 MMOL/L (98-107); CHOLESTEROL 136 MG/DL (< 200); CREATININE SERUM 0.82 MG/DL (0.60-1.30); GFR ESTIMATED 84; GLUCOSE 112 MG/DL (70-105); HDL CHOLESTEROL 41 MG/DL (40-60); MAGNESIUM 1.6 MG/DL (1.6-2.4); POTASSIUM 3.5 MMOL/L (3.6-5.0); SODIUM 140 MMOL/L (135-145); TOTAL PROTEIN 5.8 GM/DL (6.4-8.2); TRIGLYCERIDES 161 MG/DL (<150); VLDL CHOLESTEROL 32 MG/DL (5-40)
[2023-02-01] MEDS: POTASSIUM CL 10MEQ/50ML IVPB 50 ML IV SCH ×4 (06:00→15:15)
[2023-02-01] MEDS: MAGNESIUM 1 GM/100 ML IVPB 100 ML IV SCH ×4 (06:00→08:45)
[2023-02-01] MEDS: KCL 20 MEQ TAB (K-DUR) PO SCH (06:00)
[2023-02-01] MEDS ORDERED: NS IV 500 ML 500 ML IV PRN (06:00)
[2023-02-01] MEDS: ASPIRIN enteric coated 81MG TABLET PO SCH (08:43)
[2023-02-01] MEDS: fentaNYL INJ 100 MCG/2 ML AMP IV PRN ×3 (08:57→19:48)
[2023-02-01] MEDS ORDERED: TIOTROPIUM INH 4 GM (SPIRIVA Respimat) IH PRN (10:00)
--- NOTE | 2023-02-01 10:10 | Tele-ICU Progress Note ---
Subjective Date Seen by a Provider: Feb 01, 2023 Time Seen by a Provider: 10:06 Subjective/Events-last exam (Tele-ICU Physician , consultation as per request of PCP Service provided via interactive audio and video telecommunications E-CARE system to a patient admitted to ICU bed in [facility]. Available chart/ vitals / labs / Images reviewed H&P is from ER notes Patient's information available about PMH, Shx, Fhx allergy reviewed inEMR. ROS as per chart and RN report Now in ICU, hemodynamically stable Video assessment done using teleICU camera, rest of exam as per RN Discussed with RN. Hospital course: A/P PAF , cAC with xarelto - s/p few cardioversion in past , - EF 60 % - on cardizem gtt - card consult pending -LR 150 - to stop ? - as per cards plans/assessment Chest discimfort - bronchospasm , angina , muscle pain - as per bedside assessment LRTI - viral panel negative - cefepime Hypoxia - 3 l , ( home use prn ) urint tox + opioids Right chronic elevation hemidiaphrahgm Lines : periph , (Central Line Necessity Reviewed) Garner: void OG: Nutrition: npo Analgesia: Anxiety/ delirium VTE Prophylaxis: xarelto Stress Ulcer Prophylaxis: na Plans in collaboration with bedside consultants and IM MDs. Discussed with RN to reach out if any questions or concerns A total of 20 minutes of critical care time was devoted to this patient today, required to treat and/or prevent further deterioration of critical care condition ( as above ) . I am remotely monitoring this patient from another state. I am unable to do the bedside exam, and history/physical and pertinent information is taken from other notes in the computer and bedside staff. . Sepsis Event Evaluation Height, Weight, BMI Height: '" Weight: lbs. oz. kg; 34.23 BMI Method: Focused Exam Lactate Level 01/31/23 19:10: Lactic Acid Level 1.58 Exam Exam Patient acknowledged, consented, and participated in this virtual visit which was conducted using real time audio/video Vital Signs Date Time Temp Pulse Resp B/P (MAP) Pulse Ox O2 Delivery O2 Flow Rate FiO2 02/01/23 09:00 87 114/80 (85) 96 Nasal Cannula 2.00 02/01/23 08:00 94 113/75 (93) 96 Nasal Cannula 2.00 02/01/23 07:42 36.1 02/01/23 07:00 96 02/01/23 07:00 93 111/61 (73) 95 Nasal Cannula 2.00 02/01/23 06:18 87 113/93 02/01/23 06:12 96 Nasal Cannula 2.00 02/01/23 06:00 87 113/93 (100) 96 Nasal Cannula 2.00 02/01/23 05:00 85 118/84 (95) 97 Nasal Cannula 2.00 02/01/23 04:00 62 99/57 (71) 98 Nasal Cannula 2.00 02/01/23 04:00 96 Nasal Cannula 2.00 02/01/23 03:00 91 99/59 (72) 99 Nasal Cannula 2.00 02/01/23 02:00 66 99/58 (72) 98 Nasal Cannula 2.00 02/01/23 01:00 62 101/55 (70) 98 Nasal Cannula 2.00 02/01/23 00:40 95 02/01/23 00:15 98 126/93 02/01/23 00:15 98 126/93 02/01/23 00:15 98 126/93 02/01/23 00:00 106 101/72 (82) 97 Nasal Cannula 2.00 01/31/23 23:55 95 Nasal Cannula 2.00 01/31/23 23:50 98 01/31/23 21:22 128 126/93 01/31/23 18:55 94 Nasal Cannula 2.00 01/31/23 18:50 36.9 134 22 120/87 (98) 92 Room Air I & O 02/01/23 07:00 Intake Total 285 ml Output Total 0 ml Balance 285 ml Height & Weight Height: '" Weight: lbs. oz. kg; 34.23 BMI Method: General Appearance: No Apparent Distress, WD/WN, Other (CONSTANT, NON- PRODUCTIVE COUGH. ) Respiratory: Normal Breath Sounds, Other (MILDLY DYSPNEIC, BUT IS CONSTANTLY COUGHING) Cardiovascular: No Edema, No JVD, No Murmur, Normal Peripheral Pulses, Tachycardia Capillary Refill: Less Than 3 Seconds Extremity: Normal Capillary Refill, Normal Inspection, Normal Range of Motion, Non Tender, No Calf Tenderness, No Pedal Edema Neurologic/Psychiatric: Alert, Oriented x3, No Motor/Sensory Deficits, Normal Mood/Affect, health club attendant II-XII Norm as Tested Skin: Normal Color, Warm/Dry Results Lab Laboratory Tests 01/31/23 18:54 02/01/23 05:02 Assessment/Plan Assessment/Plan 1 ALLIE GUZMAN MD Feb 01, 2023 10:10
[2023-02-01 13:52] VITALS: BP 132/73
[2023-02-01] MEDS ORDERED: RT-ALBUTEROL/IPRATROPIUM 3 ML (DUONEB) VIAL INH PRN (14:00)
[2023-02-01] MEDS: RT-ALBUTEROL/IPRATROPIUM 3 ML (DUONEB) VIAL INH SCH ×2 (14:50→21:19)
--- NOTE | 2023-02-01 16:36 | History & Physical-Hospitalist ---
History of Present Illness HPI/Chief Complaint Maria Fernanda Rondon is a 57 year old female with PMH HTN, HLD, AFib s/p ablation x4, SSS s/p pacemaker, hiatal hernia, GERD, anxiety, depression, obesity, who presented with shortness of breath. She has been sick for 3 weeks. She also has a dry cough. She has had chest pain in the center of her chest. She denies abdominal pain, nausea, vomiting. She was seen at an urgent care and was given an antibiotic and cough medicine but has not improved. Source: patient Exam Limitations: no limitations Date Seen 02/01/23 Time Seen by a Provider: 10:40 Attending Physician Heriberto Nunn MD PCP Admitting Physician: Anderson Rea MD Attending Physician: Anderson Rea MD Referring Physician Date of Admission Jan 31, 2023 at 23:15 Home Medications & Allergies Home Medications Reviewed patient Home Medication Reconciliation performed by pharmacy medication reconciliations appliance technician and/or nursing. Patients Allergies have been reviewed. Allergies Allergies Coded Allergies Latex, Natural Rubber (Verified Allergy, Intermediate, Shortness of Breath, PARALIZED DIAHPHRAM, 02/17/22) Past Cddvetl-Axxccn-Bqldor Hx Patient Social History Tobacco Use?: No Smoking Status: Never a Smoker Smokeless Tobacco Frequency: Never a User Use of E-Cig and/or Vaping dev: No Substance use?: No Alcohol Use?: No Pt feels they are or have been: No Immunizations Up To Date Date of Influenza Vaccine: May 04, 2020 First/Initial COVID19 Vaccinat: NONE Second COVID19 Vaccination Arley: NONE Tetanus Booster (TDap): Unknown Hepatitis A: Yes Hepatitis B: Yes PED Vaccines UTD: Yes Date of Pneumonia Vaccine: Feb 05, 2020 Seasonal Allergies Seasonal Allergies: Yes Current Status status: No Advance Directives: No Communicates: Verbally Primary Language: Estonian Preferred Spoken Language: Estonian Is interpretation needed?: No Implanted or Applied Medical D: Pacemaker, Other Past Medical History Surgeries: Abdominal, Appendectomy, Bladder Surgery, Cardiac, Gallbladder, Hysterectomy, Pacemaker, Renal, Tonsillectomy Pneumonia, Chronic Bronchitis, COPD Currently Using CPAP: No Currently Using BIPAP: No Atrial Fibrillation, Heart Attack, High Cholesterol, Hypertension Stroke 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 Sexually Transmitted Disease: No Kidney Stones Gastroesophageal Reflux, Reina's Esophagus, Hemorrhoids, Hiatal Hernia Degenerate Disk Disease, Back Injury, Chronic Back Pain Hypothyroidsim Loss of Vision: Denies Hearing Impairment: Denies Colon Anxiety, PTSD, Depression Psoriasis Blood Disorders: No Hypertension Hyperlipidemia Atrial fibrillation Sick sinus syndrome status post pacemaker Hiatal hernia status post surgical repair Obesity Family Medical History Colon cancer No Pertinent Family Hx PT WITH A MULTITUDE OF VISITS FOR VARIOUS COMPLAINTS OF 01/31/23, SHE HAS HAD 43 VISITS SINCE HER FIRST VISIT HERE JULY 2020. Review of Systems Constitutional: malaise Respiratory: cough, short of breath Cardiovascular: chest pain Gastrointestinal: no symptoms reported Physical Exam Physical Exam Vital Signs Vital Signs - First Documented 01/31/23 01/31/23 18:50 18:55 Temp 36.9 Pulse 134 Resp 22 B/P (MAP) 120/87 (98) Pulse Ox 92 O2 Delivery Room Air O2 Flow Rate 2.00 Capillary Refill : Less Than 3 Seconds Height, Weight, BMI Height: '" Weight: lbs. oz. kg; 34.23 BMI Method: General Appearance: No Apparent Distress, Obese HEENT: PERRL/EOMI, Pharynx Normal Neck: Normal Inspection, Supple Respiratory: Lungs Clear, Normal Breath Sounds, No Respiratory Distress Cardiovascular: Irregularly Irregular, Tachycardia Gastrointestinal: Normal Bowel Sounds, Non Tender, Soft Extremity: Normal Inspection, Non Tender, No Pedal Edema Neurologic/Psychiatric: Alert, No Motor/Sensory Deficits Skin: Normal Color, Warm/Dry Results Results/Procedures Labs Laboratory Tests 01/31/23 18:54 02/01/23 05:02 Patient resulted labs reviewed. Imaging: Reviewed Imaging Report Assessment/Plan Admission Diagnosis AFib with RVR Admission Status: Inpatient Order (span 2 midnights) Reason for Inpatient Admission: IV antiarrhythmics Cardiology evaluation Assessment and Plan AFib with RVR Chest pain History of multiple ablations Troponin remains negative Cardiology consulted Given Digoxin IV Cardizem Xarelto Viral URI Chronic respiratory failure with hypoxia Oxygen requirement at baseline Ddimer negative Chest xray negative COVID and Flu negative Antitussives as needed Critical Care Critically Ill Patient Diagnosis/Problems Diagnosis/Problems (1) Atrial fibrillation with rapid ventricular response Status: Acute (2) Chest pain Status: Acute (3) Viral URI with cough Status: Acute (4) Chronic respiratory failure with hypoxia Status: Chronic ANDERSON REA MD Feb 01, 2023 16:36
--- NOTE | 2023-02-01 16:48 | Consultation-Cardiology ---
HPI-Cardiology Cardiology Consultation: Date of Consultation 02/01/23 Date of Admission Attending Physician Heriberto Nunn MD Admitting Physician Admitting Physician: Helen Orlando MD Attending Physician: Helen Orlando MD Consulting Physician Everette AREVALO MD HPI: Time Seen by a Provider: 16:45 Chief Complaint: Shortness of breath, cough This is a 57-year-old lady with history of atrial fibrillation with numerous ablations. Sinus node dysfunction. Presents with shortness of breath. She has been sick for 3 weeks with a dry incessant cough. She also complains of occas ional chest discomfort. She is found to be in atrial flutter. Review of Systems-Cardiology Review of Systems Constitutional: no symptoms reported Eyes: no symptoms reported Ears/Nose/Throat: no symptoms reported Respiratory: cough, shortness of breath Cardiovascular: chest pain Gastrointestinal: no symptoms reported Genitourinary: no symptoms reported Musculoskeletal: no symptoms reported Skin: no symptoms reported Psychiatric/Neurological: no symptoms reported Hematologic: no symptoms reported YMO-Bvpkcy-Wrfbat Hx Patient Social History Smoking Status: Never a Smoker 2nd Hand Smoke Exposure: No Alcohol Use?: No Pt feels they are or have been: No Immunizations Up To Date Tetanus Booster (TDap): Less than 5yrs Date of Pneumonia Vaccine: Feb 05, 2020 Date of Influenza Vaccine: May 04, 2020 Past Medical History PMH As described under Assessment. Family Medical History Family Medical History: No reported family h/o CAD. Family History: Colon cancer Allergies and Home Medications Allergies Coded Allergies: Latex, Natural Rubber (Verified Allergy, Intermediate, Shortness of Breath, PARALIZED DIAHPHRAM, 02/17/22) Patient Home Medication List Home Medication List Reviewed: Yes Albuterol Sulfate (Albuterol Sulfate) 2.5 Mg/3 Ml (0.083 %) Vial.neb, 3 ML NEB Q4H PRN for SHORTNESS OF BREATH, (Reported) Entered as Reported by: LEOBARDO CARLIN on 03/10/22 9899 Albuterol Sulfate (Ventolin Hfa) 1 Puff Puff, 2 PUFF INH Q4H PRN for SHORTNESS OF BREATH, (Reported) Entered as Reported by: JORDAN CEDILLO on 12/31/22 0947 Last Action: Reviewed Clonidine HCl (Clonidine HCl) 0.1 Mg Tablet, 0.1 MG PO BID PRN for BP OVER 140/90, (Reported) Entered as Reported by: LEOBARDO CARLIN on 08/26/21 1043 Diazepam (Diazepam) 5 Mg Tablet, 5 MG PO BID PRN for ANXIETY, (Reported) Entered as Reported by: LEOBARDO CARLIN on 08/26/21 1043 Diltiazem HCl (Diltiazem 24Hr Cd) 180 Mg Cap.er.24h, 180 MG PO HS, (Reported) Entered as Reported by: JORDAN CEDILLO on 12/31/22 0944 Diltiazem HCl (Diltiazem 24Hr Cd) 240 Mg Cap.er.24h, 240 MG PO DAILY, (Reported) Entered as Reported by: JORDAN CEDILLO on 12/31/22 0944 Docusate Sodium (Colace) 100 Mg Capsule, 100 MG PO HS, (Reported) Entered as Reported by: RAJAN SWANN on 10/13/22 1711 Fish Oil/Dha/Epa (Fish Oil 1,200 mg Fish Oil) 1,200 Mg-144 Mg-216 Mg Capsule, 1 EACH PO HS, (Reported) Entered as Reported by: LEOBARDO CARLIN on 03/10/22 1558 Fluticasone Propionate (Flonase Allergy Relief) 50 Mcg/Actuation [place].susp, 1 SPRAY NS DAILY PRN for CONGESTION, (Reported) Entered as Reported by: JORDAN CEDILLO on 12/31/22 0944 Furosemide (Furosemide) 40 Mg Tablet, 40 MG PO HS, (Reported) Entered as Reported by: LEOBARDO CARLIN on 03/10/22 1558 Levocetirizine Dihydrochloride (Levocetirizine Dihydrochloride) 5 Mg Tablet, 5 MG PO HS, (Reported) Entered as Reported by: KERLINE JORGENSEN on 05/30/22 1012 Pantoprazole Sodium (Pantoprazole Sodium) 40 Mg Tablet.dr, 40 MG PO HS, (Report ed) Entered as Reported by: MYRTLE VANN on 02/04/22 1240 Potassium Chloride (Potassium Chloride) 10 Meq Tab.er.prt, 10 MEQ PO HS, (Reported) Entered as Reported by: JORDAN CEDILLO on 12/31/22 0944 Promethazine HCl (Promethazine HCl) 12.5 Mg Tablet, 12.5 MG PO Q6H PRN for NAUSEA/VOMITING-1ST LINE, (Reported) Entered as Reported by: JORDAN CEDILLO on 12/31/22943 Propafenone HCl (Propafenone HCl) 225 Mg Tablet, 225 MG PO TID, (Reported) Entered as Reported by: JORDAN CEDILLO on 12/31/22943 Rivaroxaban (Xarelto) 20 Mg Tablet, 20 MG PO 1900, (Reported) Entered as Reported by: LEOBARDO CARLIN on 03/10/221557 Sumatriptan Succinate (Sumatriptan Succinate) 50 Mg Tablet, 50 MG PO UD PRN for MIGRAINE, (Reported) Entered as Reported by: LEOBARDO CARLIN on 03/10/221557 Tiotropium [place] (Spiriva Respimat 2.5MCG/ACTUATION) 2.5 Mcg/Actuation Mist.inhal, 2 PUFF IH DAILY PRN for SHORTNESS OF BREATH, (Reported) Entered as Reported by: JORDAN CEDILLO on 12/31/22943 Last Action: Continued Vitamin E Mixed (Vitamin E) 1,000 Unit Capsule, 1,000 UNIT PO HS, (Reported) Entered as Reported by: LEOBARDO CARLIN on 03/10/221557 [Vit C/Vit D/Zinc] , 1 EA PO HS, (Reported) Entered as Reported by: LEOBARDO CARLIN on 03/10/221557 Exam Vital Signs Vital Signs Date Time Temp Pulse Resp B/P (MAP) Pulse Ox O2 Delivery O2 Flow Rate FiO2 02/01/23 16:35 121 137/81 02/01/23 16:00 94 Nasal Cannula 2.00 02/01/23 15:55 36.9 01/31/23 18:50 22 Physical Exam Incessant coughing. Constitutional: No respiratory distress, Chest: Mild wheezing. CVS: Irregular rhythm. Neuro: Nonfocal. Labs Laboratory Tests Test 01/31/23 18:54 01/31/23 18:55 01/31/23 19:04 01/31/23 19:10 Range/Units White Blood Count 12.8 H 4.3-11.0 10^3/uL Red Blood Count 5.05 3.80-5.11 10^6/uL Hemoglobin 14.7 11.5-16.0 g/dL Hematocrit 44 35-52 % Mean Corpuscular Volume 87 80-99 fL Mean Corpuscular Hemoglobin 29 25-34 pg Mean Corpuscular Hemoglobin Concent 34 32-36 g/dL Red Cell Distribution Width 13.1 10.0-14.5 % Platelet Count 287 130-400 10^3/uL Mean Platelet Volume 10.2 9.0-12.2 fL Immature Granulocyte % (Auto) 1 % Neutrophils (%) (Auto) 61 42-75 % Lymphocytes (%) (Auto) 28 12-44 % Monocytes (%) (Auto) 9 0-12 % Eosinophils (%) (Auto) 2 0-10 % Basophils (%) (Auto) 0 0-10 % Neutrophils # (Auto) 7.8 1.8-7.8 10^3/uL Lymphocytes # (Auto) 3.6 1.0-4.0 10^3/uL Monocytes # (Auto) 1.1 H 0.0-1.0 10^3/uL Eosinophils # (Auto) 0.2 0.0-0.3 10^3/uL Basophils # (Auto) 0.0 0.0-0.1 10^3/uL Immature Granulocyte # (Auto) 0.1 0.0-0.1 10^3/uL Prothrombin Time 16.5 H 12.2-14.7 SEC INR Comment 1.3 0.8-1.4 Activated Partial Thromboplast Time 33 24-35 SEC D-Dimer 0.26 0.00-0.49 UG/ML Sodium Level 143 135-145 MMOL/L Potassium Level 3.6 3.6-5.0 MMOL/L Chloride Level 111 H 98-107 MMOL/L Carbon Dioxide Level 21 21-32 MMOL/L Anion Gap 11 5-14 MMOL/L Blood Urea Nitrogen 27 H 7-18 MG/DL Creatinine 1.06 0.60-1.30 MG/DL Estimat Glomerular Filtration Rate 62 BUN/Creatinine Ratio 25 Glucose Level 88 70-105 MG/DL Calcium Level 9.0 8.5-10.1 MG/DL Corrected Calcium 9.0 8.5-10.1 MG/DL Magnesium Level 2.0 1.6-2.4 MG/DL Total Bilirubin 0.3 0.1-1.0 MG/DL Aspartate Amino Transf (AST/SGOT) 19 5-34 U/L Alanine Aminotransferase (ALT/SGPT) 29 0-55 U/L Alkaline Phosphatase 132 40-136 U/L Total Creatine Kinase 101 29-168 U/L Creatine Kinase MB 1.5 <6.6 NG/ML Myoglobin 47.2 10.0-92.0 NG/ML Troponin I < 0.028 <0.028 NG/ML B-Type Natriuretic Peptide < 10.0 <100.0 PG/ML Total Protein 7.2 6.4-8.2 GM/DL Albumin 4.0 3.2-4.5 GM/DL Amylase Level 33 25-125 U/L Lipase 38 8-78 U/L Influenza Type A (RT-PCR) Not Detected Not Detecte Influenza Type B (RT-PCR) Not Detected Not Detecte SARS-CoV-2 RNA (RT-PCR) Not Detected Not Detecte Urine Color YELLOW Urine Clarity SL CLOUDY Urine pH 6.0 5-9 Urine Specific [place] 1.025 H 1.016-1.022 Urine Protein NEGATIVE NEGATIVE Urine Glucose (UA) NEGATIVE NEGATIVE Urine Ketones NEGATIVE NEGATIVE Urine Nitrite NEGATIVE NEGATIVE Urine Bilirubin NEGATIVE NEGATIVE Urine Urobilinogen 0.2 < = 1.0 MG/DL Urine Leukocyte Esterase NEGATIVE NEGATIVE Urine RBC (Auto) TRACE-I H NEGATIVE Urine RBC NONE /HPF Urine WBC 0-2 /HPF Urine Squamous Epithelial Cells 5-10 /HPF Urine Crystals PRESENT H /LPF Urine Calcium Oxalate Crystals LARGE H /LPF Urine Amorphous Sediment MOD GENIE URATES H /LPF Urine Bacteria TRACE /HPF Urine Casts NONE /LPF Urine Mucus LARGE H /LPF Urine Culture Indicated CULTURE PENDING Lactic Acid Level 1.58 0.50-2.00 MMOL/L Test 01/31/23 20:32 02/01/23 00:11 02/01/23 05:02 Range/Units Urine Opiates Screen POSITIVE H NEGATIVE Urine Oxycodone Screen NEGATIVE NEGATIVE Urine Methadone Screen NEGATIVE NEGATIVE Urine Propoxyphene Screen NEGATIVE NEGATIVE Urine Barbiturates Screen NEGATIVE NEGATIVE Ur Tricyclic Antidepressants Screen NEGATIVE NEGATIVE Urine Phencyclidine Screen NEGATIVE NEGATIVE Urine Amphetamines Screen NEGATIVE NEGATIVE Urine Methamphetamines Screen NEGATIVE NEGATIVE Urine Benzodiazepines Screen NEGATIVE NEGATIVE Urine Cocaine Screen NEGATIVE NEGATIVE Urine Cannabinoids Screen NEGATIVE NEGATIVE Troponin I < 0.028 < 0.028 <0.028 NG/ML White Blood Count 11.1 H 4.3-11.0 10^3/uL Red Blood Count 4.55 3.80-5.11 10^6/uL Hemoglobin 13.4 11.5-16.0 g/dL Hematocrit 40 35-52 % Mean Corpuscular Volume 88 80-99 fL Mean Corpuscular Hemoglobin 30 25-34 pg Mean Corpuscular Hemoglobin Concent 33 32-36 g/dL Red Cell Distribution Width 13.2 10.0-14.5 % Platelet Count 198 130-400 10^3/uL Mean Platelet Volume 10.3 9.0-12.2 fL Immature Granulocyte % (Auto) 0 % Neutrophils (%) (Auto) 79 H 42-75 % Lymphocytes (%) (Auto) 14 12-44 % Monocytes (%) (Auto) 5 0-12 % Eosinophils (%) (Auto) 1 0-10 % Basophils (%) (Auto) 0 0-10 % Neutrophils # (Auto) 8.8 H 1.8-7.8 10^3/uL Lymphocytes # (Auto) 1.6 1.0-4.0 10^3/uL Monocytes # (Auto) 0.6 0.0-1.0 10^3/uL Eosinophils # (Auto) 0.1 0.0-0.3 10^3/uL Basophils # (Auto) 0.0 0.0-0.1 10^3/uL Immature Granulocyte # (Auto) 0.0 0.0-0.1 10^3/uL Sodium Level 140 135-145 MMOL/L Potassium Level 3.5 L 3.6-5.0 MMOL/L Chloride Level 109 H 98-107 MMOL/L Carbon Dioxide Level 24 21-32 MMOL/L Anion Gap 7 5-14 MMOL/L Blood Urea Nitrogen 20 H 7-18 MG/DL Creatinine 0.82 0.60-1.30 MG/DL Estimat Glomerular Filtration Rate 84 BUN/Creatinine Ratio 24 Glucose Level 112 H 70-105 MG/DL Calcium Level 8.4 L 8.5-10.1 MG/DL Corrected Calcium 9.0 8.5-10.1 MG/DL Magnesium Level 1.6 1.6-2.4 MG/DL Total Bilirubin 0.4 0.1-1.0 MG/DL Aspartate Amino Transf (AST/SGOT) 16 5-34 U/L Alanine Aminotransferase (ALT/SGPT) 23 0-55 U/L Alkaline Phosphatase 94 40-136 U/L Total Protein 5.8 L 6.4-8.2 GM/DL Albumin 3.3 3.2-4.5 GM/DL Triglycerides Level 161 H <150 MG/DL Cholesterol Level 136 < 200 MG/DL LDL Cholesterol Direct 82 1-129 MG/DL VLDL Cholesterol 32 5-40 MG/DL HDL Cholesterol 41 40-60 MG/DL ECG Impression ECG Initial ECG Rhythm: A Fib/Flutter A/P-Cardiology Assessment/Admission Diagnosis Incessant cough, shortness of breath, possible bronchitis, Atrial flutter, History of persistent atrial fibrillation, on Chronic oral anticoagulation. Plan Defer treatment of cough and bronchitis to the primary team. Atrial flutter. Patient has been on chronic oral anticoagulation for at least last 30 days. Patient will likely require cardioversion with Dr. Ruvalcaba moriah . N.p.o. after midnight. Persistent atrial fibrillation: Previous ablation. On chronic oral anticoagulation. History of sinus node dysfunction as well as pacemaker Dr. Ruvalcaba to take over cardiology care tomorrow. Everette AREVALO MD Feb 01, 2023 16:48
[2023-02-01] MEDS: RIVAROXABAN 20 MG TABLET (XARELTO) PO SCH (17:33)
[2023-02-02] MEDS: CEFEPIME INJECTION 1,000 MG in NS (IVPB) 50 ML 50 ML IV SCH ×4 (02:06→20:32)
[2023-02-02] MEDS: RT-ALBUTEROL/IPRATROPIUM 3 ML (DUONEB) VIAL INH SCH ×4 (02:22→21:18)
[2023-02-02] MEDS: fentaNYL INJ 100 MCG/2 ML AMP IV PRN ×4 (03:55→21:08)
[2023-02-02 04:36] LABS: BASOPHILS % (AUTO) 0 % (0-10); EOSINOPHILS # (AUTO) 0.1 10^3/uL (0.0-0.3); EOSINOPHILS % (AUTO) 1 % (0-10); HEMATOCRIT 40 % (35-52); HEMOGLOBIN 13.4 g/dL (11.5-16.0); LYMPHOCYTES # (AUTO) 1.3 10^3/uL (1.0-4.0); LYMPHOCYTES % (AUTO) 20 % (12-44); MEAN CORPUSCULAR HEMOGLOBIN 29 pg (25-34); MEAN CORPUSCULAR HGB CONC 34 g/dL (32-36); MEAN CORPUSCULAR VOLUME 87 fL (80-99); MEAN PLATELET VOLUME 10.6 fL (9.0-12.2); MONOCYTES # (AUTO) 0.7 10^3/uL (0.0-1.0); MONOCYTES % (AUTO) 11 % (0-12); NEUTROPHILS # (AUTO) 4.2 10^3/uL (1.8-7.8); NEUTROPHILS % (AUTO) 67 % (42-75); PLATELET COUNT 182 10^3/uL (130-400); WHITE BLOOD COUNT 6.2 10^3/uL (4.3-11.0)
[2023-02-02 05:01] LABS: CALCIUM 8.5 MG/DL (8.5-10.1); CREATININE SERUM 0.72 MG/DL (0.60-1.30); MAGNESIUM 1.9 MG/DL (1.6-2.4); POTASSIUM 3.4 MMOL/L (3.6-5.0)
[2023-02-02] MEDS: POTASSIUM CL 10MEQ/50ML IVPB 50 ML IV SCH ×4 (05:17→07:53)
[2023-02-02] MEDS: KCL 20 MEQ TAB (K-DUR) PO SCH (05:17)
[2023-02-02] MEDS: MAGNESIUM 1 GM/100 ML IVPB 100 ML IV SCH ×2 (05:17→05:44)
[2023-02-02] MEDS: dilTIAZem DRIP 125 MG/125 ML DRIP IV SCH (05:41)
[2023-02-02] MEDS: PROMETHAZINE/ CODEINE SYRUP 5 ML UDC PO PRN ×2 (05:56→11:57)
[2023-02-02] MEDS: BENZONATATE 100 MG CAPSULE PO SCH ×3 (05:57→20:32)
[2023-02-02] MEDS: NOREPINEPHRINE 8 MG/250 ML 250 ML IV SCH ×2 (06:48→21:46)
--- NOTE | 2023-02-02 08:25 | Diagnostic Imaging Report ---
INDICATION: Chest pain TECHNIQUE: Single view chest 3:54 AM CORRELATION STUDY: 01/31/2023 FINDINGS: Left-sided pacemaker, stable. Heart size is at the upper limits of normal. Unchanged elevated right diaphragm. Minimal fullness right axilla perhaps slightly increased may reflect minimal area of infiltrate. Left lung clear. IMPRESSION: 1. Unchanged elevated right diaphragm. Question minimal infiltrate right perihilar region. Dictated by: Dictated on workstation # [id number]
--- NOTE | 2023-02-02 09:37 | Cardiology Progress Note ---
Subjective Date Seen by Provider: Feb 02, 2023 Time Seen by Provider: 09:34 Subjective/Events-last exam Patient was seen at bedside, she was laying down comfortably, complaining of constant dry cough. Still in atrial flutter, maintained on Cardizem drip Review of Systems General: No Chills, No Night Sweats; Fatigue; No Malaise, No Appetite, No Other HEENT: No Head Aches, No Visual Changes, No Eye Pain, No Ear Pain, No Dysphasia, No Sinus Congestion, No Post Nasal Drip, No Sore Throat, No Other Pulmonary: Dyspnea, Cough; No Pleuritic Chest Pain, No Other Cardiovascular: No: Chest Pain, Palpitations, Orthopnea, Paroxysmal Noc. Dyspnea, Edema, Lt Headedness, Other Focused Exam Lactate Level 01/31/23 19:10: Lactic Acid Level 1.58 Objective-Cardiology Exam Last Set of Vital Signs Vital Signs 01/31/23 02/02/23 02/02/23 18:50 07:56 09:00 Temp 36.2 Pulse 106 Resp 22 B/P (MAP) 110/103 (105) Pulse Ox 92 O2 Delivery Nasal Cannula O2 Flow Rate 2.00 I&O Intake and Output 02/02/23 00:00 Intake Total 3460 ml Output Total 2125 ml Balance 1335 ml Intake Oral 510 ml IV Total 2950 ml Output Urine Total 2125 ml # Voids 3 General: Alert, Oriented X3, Cooperative HEENT: Atraumatic, PERRLA Neck: Supple, No JVD, No Thyromegaly Lungs: Normal Air Movement, Other (Bilateral rhonchi) Heart: Normal S1, Normal S2, No Murmurs, Other (Atrial flutter) Abdomen: Normal Bowel Sounds, Soft, No Tenderness, No Hepatosplenomegaly, No Masses Extremities: No Clubbing, No Cyanosis, No Edema, Normal Pulses, No Tenderness/Swelling Skin: No Rashes, No Breakdown, No Significant Lesion Neuro: Normal Gait, Normal Speech, Strength at 5/5 X4 Ext, Normal Tone, Sensation Intact Psych/Mental Status: Mental Status NL, Mood NL Results Lab Laboratory Tests 02/02/23 03:49 A/P-Cardiology Admission Diagnosis Acute bronchitis Shortness of breath Atrial flutter Tachycardia Assessment/Plan Acute bronchitis, shortness of breath and cough. Managed by primary care team Palpitations secondary to tachycardia. Paroxysmal atrial fibrillation/flutter Had history of ablation in the remote past, patient had a total of 4 ablation procedures last procedure was done in January 2022, it was an extensive ablation done at that time. Stable had on and off atrial fibrillation and she was seen by Dr. Ferguson, he had adjusted her pacemaker setting for better detection of the atrial fibrillation I recommended titrating the beta-lorna dose. Underwent LENORE with cardioversion in December 05, 2020 and still in sinus rhythm. C/o occasional episode of palpitations. Pacemaker sensitivity was adjusted by Dr. eFrguson. Patient was intolerant to amiodarone, Multaq, reports she failed Sotalol, Tikosyn, Flecainide Intolerant to metoprolol due to generalized fatigue. She was referred to for evaluation, seen by Dr. Sanon. 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 Was hospitalized for 2 weeks, recovering slowly. Underwent cardioversion in February 2022 She had another electrical cardioversion done in May 2022. Patient has stopped her medication about 4 to 5 days ago due to family emergency and her traveling. Currently in atrial flutter with rapid ventricular response, has been maintained on Xarelto without interruption for 6 weeks Planning to proceed with electrical cardioversion today 2D echo was done on May 30, 2022 with normal LV size, EF 55 to 60%, PA pressure 20 mmHg Sinus node dysfunction, history of [employer]onic dual-chamber pacemaker, functioning normally. Had it implanted in [place], continue to monitor at this time Generalized fatigue and loss of energy. 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 Had EGD with Dr Valles Hypothyroidism, followed and managed by primary care physician COPD, maintained on bronchodilator. Followed and managed by primary care physician Status post Covid 19 infection in June 2020, still complaining of some dyspnea and fatigue since that infection Nonobstructive carotid artery stenosis per carotid duplex done November 2021. History of kidney stone, underwent cystoscopy and right ureteral stone manipulation and insertion of right double-J with Dr. Jenkins on 02/06/22. s/p s tent retrieval ERIKA DE LA ROSA MD Feb 02, 2023 09:37
--- NOTE | 2023-02-02 09:48 | Cardioversion ---
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 Electrical cardioversion was carried out with anesthesia support with propofol. 200 joules of synchronized shock was delivered through external patches which promptly restored sinus rhythm. The patient tolerated the procedure well. Conclusions: Successful cardioversion and terminating atrial flutter ERIKA RUVALCABA MD Feb 02, 2023 09:48
--- NOTE | 2023-02-02 10:03 | Anesthesia-General Post-Op ---
MAC Patient Condition Mental Status/LOC: Same as Preop Cardiovascular: Satisfactory Nausea/Vomiting: Absent Respiratory: Satisfactory Pain: Controlled Complications: Absent Post Op Complications Complications None Follow Up Care/Instructions Patient Instructions None needed. Anesthesiology Discharge Order Discharge Order Patient is doing well, no complaints, stable vital signs, no apparent adverse anesthesia problems. No complications reported per nursing. HUMA MAGALLANES CRNA Feb 02, 2023 10:03
[2023-02-02] MEDS: VASOPRESSIN INJECTION 20 UNIT in NS (IVPB) 100 ML 100 ML IV SCH ×2 (10:05→20:56)
[2023-02-02] MEDS: ASPIRIN enteric coated 81MG TABLET PO SCH (10:25)
[2023-02-02] MEDS: ONDANSETRON 4 MG/2 ML (SDV) Z0FRAN IV PRN ×2 (13:35→21:08)
--- NOTE | 2023-02-02 13:37 | Progress Note - Hospitalist ---
Subjective HPI/CC On Admission Date Seen by Provider: Feb 02, 2023 Maria Fernanda Rondon is a 57 year old female with PMH HTN, HLD, AFib s/p ablation x4, SSS s/p pacemaker, hiatal hernia, GERD, anxiety, depression, obesity, who presented with shortness of breath. She has been sick for 3 weeks. She also has a dry cough. She has had chest pain in the center of her chest. She denies abdominal pain, nausea, vomiting. She was seen at an urgent care and was given an antibiotic and cough medicine but has not improved. Subjective/Events-last exam Pt reports doing ok. Still having a cough. Asking about going home. Is worried about cardioversion and converted back to a fib. Focused Exam Lactate Level 01/31/23 19:10: Lactic Acid Level 1.58 Objective Exam Vital Signs Vital Signs Date Time Temp Pulse Resp B/P (MAP) Pulse Ox O2 Delivery O2 Flow Rate FiO2 02/02/23 13:00 86 02/02/23 13:00 125/75 (92) 96 Nasal Cannula 2.00 02/02/23 11:56 36.4 01/31/23 18:50 22 Capillary Refill : Less Than 3 Seconds General Appearance: No Apparent Distress Respiratory: No Accessory Muscle Use, Decreased Breath Sounds Cardiovascular: No Murmur, Irregularly Irregular, Tachycardia Gastrointestinal: Normal Bowel Sounds, Non Tender, Soft Neurologic/Psychiatric: Alert, Oriented x3 Results/Procedures Lab Laboratory Tests 02/02/23 03:49 Patient resulted labs reviewed. Imaging: Reviewed Imaging Report Assessment/Plan Assessment and Plan Assess & Plan/Chief Complaint AFib with RVR Chest pain History of multiple ablations Troponin remains negative Cardiology consulted IV Cardizem gtt Xarelto Plan for cardioversion today per cardiology Viral URI Chronic respiratory failure with hypoxia Oxygen requirement at baseline Ddimer negative Chest xray negative COVID and Flu negative Antitussives as needed 1 blood culture with step viridans- continue cefepime Sputum culture ordered- waiting for collection Critical Care Critically Ill Patient ELISE DUDLEY MD Feb 02, 2023 13:37
[2023-02-02] MEDS ORDERED: DOXY100C5 PO (13:52)
[2023-02-02] MEDS ORDERED: ACET118E PO (13:52)
[2023-02-02] MEDS ORDERED: DILT240C91 PO (13:52)
[2023-02-02] MEDS ORDERED: PATIENT MAY USE OWN MEDS, ALL MC SCH (17:30)
[2023-02-02] MEDS: RIVAROXABAN 20 MG TABLET (XARELTO) PO SCH (17:53)
[2023-02-02] MEDS: PROPAFENONE 225 MG PO SCH (20:31)
[2023-02-03] MEDS: fentaNYL INJ 100 MCG/2 ML AMP IV PRN ×5 (01:01→23:21)
[2023-02-03] MEDS: CEFEPIME INJECTION 1,000 MG in NS (IVPB) 50 ML 50 ML IV SCH ×4 (01:02→20:33)
[2023-02-03] MEDS: PROMETHAZINE/ CODEINE SYRUP 5 ML UDC PO PRN ×2 (01:02→08:05)
[2023-02-03] MEDS: RT-ALBUTEROL/IPRATROPIUM 3 ML (DUONEB) VIAL INH SCH ×4 (03:26→21:16)
[2023-02-03 03:50] LABS: BASOPHILS % (AUTO) 0 % (0-10); EOSINOPHILS # (AUTO) 0.2 10^3/uL (0.0-0.3); EOSINOPHILS % (AUTO) 2 % (0-10); HEMATOCRIT 35 % (35-52); HEMOGLOBIN 11.7 g/dL (11.5-16.0); LYMPHOCYTES # (AUTO) 1.8 10^3/uL (1.0-4.0); LYMPHOCYTES % (AUTO) 17 % (12-44); MEAN CORPUSCULAR HEMOGLOBIN 29 pg (25-34); MEAN CORPUSCULAR HGB CONC 33 g/dL (32-36); MEAN CORPUSCULAR VOLUME 88 fL (80-99); MEAN PLATELET VOLUME 10.8 fL (9.0-12.2); MONOCYTES # (AUTO) 0.9 10^3/uL (0.0-1.0); MONOCYTES % (AUTO) 8 % (0-12); NEUTROPHILS # (AUTO) 7.7 10^3/uL (1.8-7.8); NEUTROPHILS % (AUTO) 72 % (42-75); PLATELET COUNT 194 10^3/uL (130-400); WHITE BLOOD COUNT 10.6 10^3/uL (4.3-11.0)
[2023-02-03 04:00] LABS: POTASSIUM 3.8 MMOL/L (3.6-5.0)
[2023-02-03 04:01] LABS: CALCIUM 8.6 MG/DL (8.5-10.1)
[2023-02-03 04:06] LABS: CREATININE SERUM 0.69 MG/DL (0.60-1.30)
[2023-02-03 04:08] LABS: MAGNESIUM 2.1 MG/DL (1.6-2.4)
[2023-02-03] MEDS: KCL 20 MEQ TAB (K-DUR) PO SCH (04:22)
[2023-02-03] MEDS: POTASSIUM CL 10MEQ/50ML IVPB 50 ML IV SCH (04:22)
[2023-02-03] MEDS: MAGNESIUM 1 GM/100 ML IVPB 100 ML IV SCH (04:22)
[2023-02-03] MEDS: BENZONATATE 100 MG CAPSULE PO SCH ×3 (06:07→20:34)
[2023-02-03] MEDS: ONDANSETRON 4 MG/2 ML (SDV) Z0FRAN IV PRN ×3 (06:29→22:35)
[2023-02-03] MEDS ORDERED: KCL 20 MEQ TAB (K-DUR) PO ONE (08:00)
--- NOTE | 2023-02-03 08:00 | Cardiology Progress Note ---
Subjective Date Seen by Provider: Feb 03, 2023 Time Seen by Provider: 07:59 Subjective/Events-last exam Patient is laying down in bed, still complaining of fatigue, persistent cough nonproductive. Review of Systems General: No Chills, No Night Sweats, No Fatigue, No Malaise, No Appetite, No Other HEENT: No Head Aches, No Visual Changes, No Eye Pain, No Ear Pain, No Dysphasia, No Sinus Congestion, No Post Nasal Drip, No Sore Throat, No Other Pulmonary: No Dyspnea; Cough; No Pleuritic Chest Pain, No Other Cardiovascular: No: Chest Pain, Palpitations, Orthopnea, Paroxysmal Noc. Dyspnea, Edema, Lt Headedness, Other Focused Exam Lactate Level 01/31/23 19:10: Lactic Acid Level 1.58 Objective-Cardiology Exam Last Set of Vital Signs Vital Signs 01/31/23 02/02/23 02/03/23 02/03/23 18:50 19:00 07:00 07:09 Temp 36.8 Pulse 69 Resp 22 B/P (MAP) 121/80 (94) Pulse Ox 95 O2 Delivery Nasal Cannula O2 Flow Rate 2.00 I&O Intake and Output 02/03/23 00:00 Intake Total 1275 ml Output Total 1100 ml Balance 175 ml Intake Oral 775 ml IV Total 500 ml Output Urine Total 1100 ml # Voids 5 # Bowel Movements 1 General: Alert, Oriented X3, Cooperative HEENT: Atraumatic, PERRLA Neck: Supple, No JVD, No Thyromegaly Lungs: Normal Air Movement, Other (Bilateral rhonchi) Heart: Regular Rate, Normal S1, Normal S2, No Murmurs Abdomen: Normal Bowel Sounds, Soft, No Tenderness, No Hepatosplenomegaly, No Masses Extremities: No Clubbing, No Cyanosis, No Edema, Normal Pulses, No Tenderness/Swelling Skin: No Rashes, No Breakdown, No Significant Lesion Neuro: Normal Gait, Normal Speech, Strength at 5/5 X4 Ext, Normal Tone, Sensa tion Intact Psych/Mental Status: Mental Status NL, Mood NL Results Lab Laboratory Tests 02/03/23 03:38 A/P-Cardiology Admission Diagnosis Acute bronchitis Shortness of breath Atrial flutter Tachycardia Assessment/Plan Acute bronchitis, shortness of breath and cough. Managed by primary care team Palpitations secondary to tachycardia. Paroxysmal atrial fibrillation/flutter Had history of ablation in the remote past, patient had a total of 4 ablation procedures last procedure was done in January 2022, it was an extensive ablation done at that time. Stable had on and off atrial fibrillation and she was seen by Dr. Ferguson, he had adjusted her pacemaker setting for better detection of the atrial fibrillation I recommended titrating the beta-lorna dose. Underwent LENORE with cardioversion in December 05, 2020 and still in sinus rhythm. C/o occasional episode of palpitations. Pacemaker sensitivity was adjusted by Dr. Ferguson. Patient was intolerant to amiodarone, Multaq, reports she failed Sotalol, Tikosyn, Flecainide Intolerant to metoprolol due to generalized fatigue. She was referred to for evaluation, seen by Dr. Sanon. 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 Was hospitalized for 2 weeks, recovering slowly. Underwent cardioversion in February 2022 She had another electrical cardioversion done in May 2022. Patient has stopped her medication about 4 to 5 days ago due to family emergency and her traveling. Patient was admitted in atrial flutter with rapid ventricular response, underwent electrical cardioversion on 02/02/2023. Maintaining sinus rhythm. 2D echo was done on May 30, 2022 with normal LV size, EF 55 to 60%, PA pressure 20 mmHg Sinus node dysfunction, history of Medtronic dual-chamber pacemaker, functioning normally. Had it implanted in [place], continue to monitor at this time Generalized fatigue and loss of energy. 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 Had EGD with Dr Valles Hypothyroidism, followed and managed by primary care physician COPD, maintained on bronchodilator. Followed and managed by primary care physici an Status post Covid 19 infection in June 2020, still complaining of some dyspnea and fatigue since that infection Nonobstructive carotid artery stenosis per carotid duplex done November 2021. History of kidney stone, underwent cystoscopy and right ureteral stone manipulation and insertion of right double-J with Dr. Jenkins on 02/06/22. s/p stent retrieval ERIKA DE LA ROSA MD Feb 03, 2023 08:00
[2023-02-03] MEDS: PROPAFENONE 225 MG PO SCH ×3 (08:05→20:34)
[2023-02-03] MEDS: ASPIRIN enteric coated 81MG TABLET PO SCH (08:05)
--- NOTE | 2023-02-03 08:17 | Diagnostic Imaging Report ---
Indication: Chest pain Frontal chest obtained at 0458 a.m. compared to 02/02/2023. There is cardiomegaly. Pacemaker is unchanged. There is mild central vascular prominence. There is elevation right hemidiaphragm. There is no pneumothorax or gross pleural fluid. IMPRESSION: There is elevation of the right hemidiaphragm. There is mild central vascular congestion. There is no pneumothorax or pleural fluid or focal infiltrate. Dictated by: Dictated on workstation # [id number]
[2023-02-03] MEDS: VASOPRESSIN INJECTION 20 UNIT in NS (IVPB) 100 ML 100 ML IV SCH (08:35)
[2023-02-03] MEDS ORDERED: methylPREDNISolone 40 MG/ML (Solu-MEDROL) VIAL IV ONE (08:45)
--- NOTE | 2023-02-03 09:17 | Tele-ICU Progress Note ---
Subjective Date Seen by a Provider: Feb 03, 2023 Time Seen by a Provider: 09:17 Subjective/Events-last exam (Tele-ICU Physician , consultation as per request of PCP Service provided via interactive audio and video telecommunications [facility] system to a patient admitted to ICU bed in [facility]. Available chart/ vitals / labs / Images reviewed H&P is from ER notes Patient's information available about PMH, Shx, Fhx allergy reviewed inEMR. ROS as per chart and RN report Now in ICU, hemodynamically stable Video assessment done using teleICU camera, rest of exam as per RN Discussed with RN. Hospital course: (01/31) 57yr F admitted for Afib RVR, Chest Pain, Bronchitis.Patient to ER with c/o sob for 3 weeks, chest pain that started this am and got worse this afternoon. Patient on home 02 2L NC (02/02) s/p external electrical cardioversion A/P PAF , AC with xarelto - s/p few cardioversion in past , (02/02) s/p external electrical cardioversion- in SINUS - EF 60 % Chest discimfort - bronchospasm , angina , muscle pain - as per bedside assessment - as per RN - patient has severe cough - steroids to be started today LRTI - viral panel negative - cefepime Hypoxia - 3 l , ( home use prn ) urint tox + opioids Right chronic elevation hemidiaphrahgm Lines : periph , (Central Line Necessity Reviewed) Garner: void OG: Nutrition: npo Analgesia: Anxiety/ delirium VTE Prophylaxis: xarelto Stress Ulcer Prophylaxis: na Plans in collaboration with bedside consultants and IM MDs. Discussed with RN to reach out if any questions or concerns A total of 10 minutes of critical care time was devoted to this patient today, required to treat and/or prevent further deterioration of critical care condition ( as above ) . I am remotely monitoring this patient from another state. I am unable to do the bedside exam, and history/physical and pertinent information is taken from other notes in the computer and bedside staff. . Sepsis Event Evaluation Height, Weight, BMI Height: '" Weight: lbs. oz. kg; 34.23 BMI Method: Focused Exam Lactate Level 01/31/23 19:10: Lactic Acid Level 1.58 Exam Exam Patient acknowledged, consented, and participated in this virtual visit which was conducted using real time audio/video Vital Signs Date Time Temp Pulse Resp B/P (MAP) Pulse Ox O2 Delivery O2 Flow Rate FiO2 02/03/23 08:00 96 127/82 (97) 93 Nasal Cannula 2.00 02/03/23 08:00 36.2 02/03/23 07:45 94 Nasal Cannula 2.00 02/03/23 07:09 69 02/03/23 07:00 69 121/80 (94) 95 Nasal Cannula 2.00 02/03/23 06:45 Nasal Cannula 2.00 02/03/23 06:00 72 114/78 (90) 94 Nasal Cannula 2.00 02/03/23 05:00 77 118/88 (98) 94 Nasal Cannula 2.00 02/03/23 04:00 80 110/73 (85) 94 Nasal Cannula 2.00 02/03/23 04:00 93 Nasal Cannula 2.00 02/03/23 03:27 Nasal Cannula 2.00 02/03/23 03:00 76 111/64 (80) 92 Nasal Cannula 2.00 02/03/23 02:00 76 108/72 (84) 92 Nasal Cannula 2.00 02/03/23 01:00 86 02/03/23 01:00 86 105/65 (78) 95 Nasal Cannula 2.00 02/03/23 00:00 81 109/65 (80) 94 Nasal Cannula 2.00 02/02/23 23:59 94 Nasal Cannula 2.00 02/02/23 23:00 84 105/70 (82) 94 Nasal Cannula 2.00 02/02/23 22:00 79 98/57 (71) 94 Nasal Cannula 2.00 02/02/23 21:19 Nasal Cannula 2.00 02/02/23 21:00 86 123/81 (95) 94 Nasal Cannula 2.00 02/02/23 20:00 88 118/77 (91) 95 Nasal Cannula 2.00 02/02/23 20:00 94 Nasal Cannula 2.00 02/02/23 19:00 88 02/02/23 19:00 89 122/94 (103) 95 Nasal Cannula 2.00 02/02/23 19:00 36.8 02/02/23 18:00 87 126/77 (93) 95 Nasal Cannula 2.00 02/02/23 17:00 95 121/80 (94) 95 Nasal Cannula 2.00 02/02/23 16:00 94 Nasal Cannula 2.00 02/02/23 16:00 90 104/67 (79) 94 Nasal Cannula 2.00 02/02/23 15:00 96 126/78 (94) 94 Nasal Cannula 2.00 02/02/23 14:49 Nasal Cannula 2.00 02/02/23 14:00 101 109/69 (82) 93 Nasal Cannula 2.00 02/02/23 13:00 86 02/02/23 13:00 93 125/75 (92) 96 Nasal Cannula 2.00 02/02/23 12:00 100 126/69 (88) 93 Nasal Cannula 2.00 02/02/23 12:00 94 Nasal Cannula 2.00 02/02/23 11:56 36.4 02/02/23 11:00 92 104/88 (93) 97 Nasal Cannula 2.00 02/02/23 10:23 Nasal Cannula 2.00 02/02/23 10:00 87 137/116 (123) 95 Nasal Cannula 2.00 02/02/23 09:45 98 I & O 02/03/23 07:00 Intake Total 1425 ml Output Total 1100 ml Balance 325 ml Height & Weight Height: '" Weight: lbs. oz. kg; 34.23 BMI Method: General Appearance: No Apparent Distress HEENT: PERRL/EOMI, Pharynx Normal Neck: Normal Inspection, Supple Respiratory: No Accessory Muscle Use, Decreased Breath Sounds Cardiovascular: No Murmur, Irregularly Irregular, Tachycardia Capillary Refill: Less Than 3 Seconds Extremity: Normal Inspection, Non Tender, No Pedal Edema Neurologic/Psychiatric: Alert, Oriented x3 Skin: Normal Color, Warm/Dry Results Lab Laboratory Tests 02/02/23 03:49 02/03/23 03:38 Assessment/Plan Assessment/Plan 1 ALLIE GUZMAN MD Feb 03, 2023 09:17
--- NOTE | 2023-02-03 09:23 | Progress Note - Hospitalist ---
Subjective HPI/CC On Admission Date Seen by Provider: Feb 03, 2023 Maria Fernanda Rondon is a 57 year old female with PMH HTN, HLD, AFib s/p ablation x4, SSS s/p pacemaker, hiatal hernia, GERD, anxiety, depression, obesity, who presented with shortness of breath. She has been sick for 3 weeks. She also has a dry cough. She has had chest pain in the center of her chest. She denies abdominal pain, nausea, vomiting. She was seen at an urgent care and was given an antibiotic and cough medicine but has not improved. Subjective/Events-last exam Pt still complains of cough. No sputum though. Remains in sinus rhythm. Focused Exam Lactate Level 01/31/23 19:10: Lactic Acid Level 1.58 Objective Exam Vital Signs Vital Signs Date Time Temp Pulse Resp B/P (MAP) Pulse Ox O2 Delivery O2 Flow Rate FiO2 02/03/23 08:00 96 127/82 (97) 93 Nasal Cannula 2.00 02/03/23 08:00 36.2 01/31/23 18:50 22 Capillary Refill : Less Than 3 Seconds General Appearance: No Apparent Distress Respiratory: No Accessory Muscle Use, No Respiratory Distress; No Crackles, No Rhonci, No Wheezing Cardiovascular: Regular Rate, Rhythm Gastrointestinal: Normal Bowel Sounds, Soft Neurologic/Psychiatric: Alert, Oriented x3 Results/Procedures Lab Laboratory Tests 02/03/23 03:38 Patient resulted labs reviewed. Imaging: Reviewed Imaging Report Assessment/Plan Assessment and Plan Assess & Plan/Chief Complaint AFib with RVR Chest pain History of multiple ablations Troponin remains negative Cardiology consulted Cardioverted yesterday remains in sinus Xarelto Viral URI Chronic respiratory failure with hypoxia Oxygen requirement at baseline Ddimer negative Chest xray negative COVID and Flu negative Antitussives as needed 1 blood culture with strep salivarius and strep sanguis(likely a contaminant)- continue cefepime Sputum culture ordered- waiting for collection Add steroids Critical Care Critically Ill Patient ELISE DUDLEY MD Feb 03, 2023 09:23
[2023-02-03] MEDS: methylPREDNISolone 40 MG/ML (Solu-MEDROL) VIAL IV SCH ×3 (11:43→23:21)
[2023-02-03] MEDS: HYDROcodone/ACETAMINOPHEN 5 MG/325 MG TABLET PO PRN ×2 (14:26→20:34)
[2023-02-03] MEDS: guaiFENesin/DM (ROBITUSSIN DM) 10 ML UDC PO PRN ×2 (16:04→20:34)
[2023-02-03] MEDS: RIVAROXABAN 20 MG TABLET (XARELTO) PO SCH (16:04)
[2023-02-03 16:18] VITALS: BP 97/54
[2023-02-03 20:00] VITALS: BP 117/71
[2023-02-03 23:10] VITALS: BP 129/78
[2023-02-04] MEDS: CEFEPIME INJECTION 1,000 MG in NS (IVPB) 50 ML 50 ML IV SCH ×4 (01:29→19:51)
[2023-02-04] MEDS: RT-ALBUTEROL/IPRATROPIUM 3 ML (DUONEB) VIAL INH SCH ×4 (03:17→21:25)
[2023-02-04 03:20] VITALS: BP 119/71
[2023-02-04] MEDS: BENZONATATE 100 MG CAPSULE PO SCH ×3 (05:02→21:06)
[2023-02-04] MEDS: methylPREDNISolone 40 MG/ML (Solu-MEDROL) VIAL IV SCH ×4 (05:02→23:14)
[2023-02-04] MEDS: guaiFENesin/DM (ROBITUSSIN DM) 10 ML UDC PO PRN ×2 (05:02→11:29)
[2023-02-04 06:34] LABS: BASOPHILS % (AUTO) 0 % (0-10); EOSINOPHILS % (AUTO) 0 % (0-10); HEMATOCRIT 37 % (35-52); HEMOGLOBIN 12.2 g/dL (11.5-16.0); LYMPHOCYTES # (AUTO) 0.9 10^3/uL (1.0-4.0); LYMPHOCYTES % (AUTO) 6 % (12-44); MEAN CORPUSCULAR HEMOGLOBIN 30 pg (25-34); MEAN CORPUSCULAR HGB CONC 33 g/dL (32-36); MEAN CORPUSCULAR VOLUME 89 fL (80-99); MONOCYTES # (AUTO) 0.2 10^3/uL (0.0-1.0); MONOCYTES % (AUTO) 1 % (0-12); NEUTROPHILS # (AUTO) 14.1 10^3/uL (1.8-7.8); NEUTROPHILS % (AUTO) 92 % (42-75); PLATELET COUNT 201 10^3/uL (130-400); WHITE BLOOD COUNT 15.3 10^3/uL (4.3-11.0)
[2023-02-04 06:43] LABS: POTASSIUM 4.1 MMOL/L (3.6-5.0)
[2023-02-04 06:44] LABS: CALCIUM 9.3 MG/DL (8.5-10.1)
[2023-02-04] MEDS: POTASSIUM CL 10MEQ/50ML IVPB 50 ML IV SCH (06:45)
[2023-02-04] MEDS: KCL 20 MEQ TAB (K-DUR) PO SCH (06:45)
[2023-02-04 06:49] LABS: CREATININE SERUM 0.75 MG/DL (0.60-1.30)
[2023-02-04] MEDS: MAGNESIUM 1 GM/100 ML IVPB 100 ML IV SCH (06:54)
[2023-02-04 06:59] LABS: LYMPHOCYTES % (MANUAL) 3 %; MONOCYTES % (MANUAL) 1 %; NEUTROPHILS % (MANUAL) 96 %; RBC MORPH NORMAL
--- NOTE | 2023-02-04 07:52 | Diagnostic Imaging Report ---
INDICATION: Chest pain Frontal chest obtained at 0104 a.m. Compared to 02/03/2023 Pacemaker is unchanged. The heart is mildly enlarged. There is unchanged elevation right hemidiaphragm. There is no focal infiltrate or pneumothorax or pleural fluid. IMPRESSION: Unchanged elevation right hemidiaphragm. No acute process in the chest. Dictated by: Dictated on workstation # [id number]
[2023-02-04 08:00] VITALS: BP 112/67
[2023-02-04] MEDS: ASPIRIN enteric coated 81MG TABLET PO SCH (08:35)
[2023-02-04] MEDS: PROMETHAZINE/ CODEINE SYRUP 5 ML UDC PO PRN (08:35)
[2023-02-04] MEDS: PROPAFENONE 225 MG PO SCH ×3 (08:35→19:51)
[2023-02-04] MEDS: fentaNYL INJ 100 MCG/2 ML AMP IV PRN ×4 (10:15→21:07)
--- NOTE | 2023-02-04 11:15 | Pulmonary Progress Note ---
Subjective Date Seen by a Provider: Feb 04, 2023 Time Seen by a Provider: 12:18 Subjective/Events-last exam (Tele-pulmonary Physician , consultation as per request of PCP - with f/up for pulmonary after transferred out of ICU Service provided via interactive audio and video telecommunications [employer] system to a patient admitted to [facility]. Hospital course: (01/31) 57yr F admitted for Afib RVR, Chest Pain, Bronchitis.Patient to ER with c/o sob for 3 weeks cough for 3 weeks - dry - last week litly more secretions chest pain that started this am and got worse cough worse in evening , no GERD , no nasal congestion, no allergies Patient on home 02 2L NC PRN Chest discimfort - bronchospasm , muscle pain due to severe paroxysmal cough bouts ( no GERD , no nasal congestion, no allergiesreported - since no secretions expectorated , will aim for maximal cough suppression - WILL MAKE SCHEDULED Tessalon, phenergan with codeine , robitussibn- instead of prn ) , and de-escalate latter - monitor for GERD symptoms LRTI - viral panel negative , sputum 02/02- usual resp raysa - cefepime to finish Right chronic elevation hemidiaphrahgm - ? paralyzed - seen since 2020 ( first on this EMR ) Bronchospasm with aggressive cough - steroids started on 02/03 SM 40 q6 h - nebs to cont - to start ICS , cont spiriva COPD? - PFT 12/2021- mostly restrictive defect with low DLCO = significantly worse comparing to 2020 - to follow pulm as outpatient for more precise dx , no ILD on CT CT chest 10/2022 -tree-in-bud nodularity and scarring is noted within the lateral left lower lobe -unchanged since July 2020 and presumed benign. Hypoxia - home use prn- see above leukocytosis- most likely due to steroids now PAF , AC with xarelto - s/p few cardioversion in past , (02/02) s/p external electrical cardioversion- in SINUS - EF 60 % urine tox om admission + opioids Discussed with patient the medical regiment , goals, side effects and symptoms. All questions were answered. Sepsis Event Evaluation Height, Weight, BMI Height: '" Weight: lbs. oz. kg; 34.11 BMI Method: Exam Exam Patient acknowledged, consented, and participated in this virtual visit which was conducted using real time audio/video Vital Signs Date Time Temp Pulse Resp B/P (MAP) Pulse Ox O2 Delivery O2 Flow Rate FiO2 02/04/23 08:06 Nasal Cannula 2.00 02/04/23 08:00 36.2 71 16 112/67 (82) Nasal Cannula 2.00 02/04/23 08:00 Nasal Cannula 2.00 02/04/23 07:00 68 02/04/23 03:20 36.4 72 20 119/71 (87) 93 Nasal Cannula 2.00 2.00 02/04/23 03:17 Nasal Cannula 2.00 02/04/23 01:00 74 02/03/23 23:10 36.6 72 20 129/78 (95) 92 Nasal Cannula 2.00 2.00 02/03/23 21:19 Nasal Cannula 2.00 02/03/23 20:00 36.9 68 20 117/71 (86) 92 Nasal Cannula 2.00 02/03/23 20:00 Nasal Cannula 2.00 02/03/23 19:00 73 02/03/23 16:18 36.3 69 18 97/54 (68) 94 Nasal Cannula 2.00 02/03/23 14:57 Nasal Cannula 2.00 02/03/23 12:34 96 Nasal Cannula 2.00 02/03/23 12:14 82 I & O 02/04/23 07:00 Intake Total 1900 ml Output Total 1200 ml Balance 700 ml Height & Weight Height: '" Weight: lbs. oz. kg; 34.11 BMI Method: General Appearance: No Apparent Distress HEENT: PERRL/EOMI, Pharynx Normal Neck: Normal Inspection, Supple Respiratory: No Accessory Muscle Use, No Respiratory Distress; No Crackles, No Rhonci, No Wheezing Cardiovascular: Regular Rate, Rhythm Capillary Refill: Less Than 3 Seconds Extremity: Normal Inspection, Non Tender, No Pedal Edema Neurologic/Psychiatric: Alert, Oriented x3 Skin: Normal Color, Warm/Dry Results Lab Laboratory Tests 02/03/23 03:38 02/04/23 05:16 Assessment/Plan Assessment/Plan 1 ALLIE GUZMAN MD Feb 04, 2023 11:15
--- NOTE | 2023-02-04 11:31 | Cardiology Progress Note ---
Subjective Date Seen by Provider: Feb 04, 2023 Time Seen by Provider: 08:43 Subjective/Events-last exam Patient sitting up in bed, c/o nonproductive cough. Denies any chest pain or increased dyspnea Objective-Cardiology Exam Last Set of Vital Signs Vital Signs 02/04/23 02/04/23 02/04/23 11:43 13:00 14:05 Temp 36.4 Pulse 66 Resp 17 B/P (MAP) 113/58 (76) Pulse Ox 93 O2 Delivery Nasal Cannula O2 Flow Rate 2.00 I&O Intake and Output 02/04/23 00:00 Intake Total 1850 ml Output Total 1200 ml Balance 650 ml Intake Oral 1800 ml IV Total 50 ml Output Urine Total 1200 ml # Voids 7 General: Alert, Oriented X3, Cooperative HEENT: Atraumatic, PERRLA Neck: Supple, No JVD, No Thyromegaly Lungs: Normal Air Movement, Other (Bilateral rhonchi) Heart: Regular Rate, Normal S1, Normal S2, No Murmurs Abdomen: Normal Bowel Sounds, Soft, No Tenderness, No Hepatosplenomegaly, No Masses Extremities: No Clubbing, No Cyanosis, No Edema, Normal Pulses, No Tenderness/Swelling Skin: No Rashes, No Breakdown, No Significant Lesion Neuro: Normal Gait, Normal Speech, Strength at 5/5 X4 Ext, Normal Tone, Sensation Intact Psych/Mental Status: Mental Status NL, Mood NL Results Lab Laboratory Tests 02/04/23 05:16 A/P-Cardiology Admission Diagnosis Acute bronchitis Shortness of breath Atrial flutter Tachycardia Assessment/Plan Acute bronchitis, shortness of breath and cough. Managed by primary care team Palpitations secondary to tachycardia. Paroxysmal atrial fibrillation/flutter Had history of ablation in the remote past, patient had a total of 4 ablation procedures last procedure was done in January 2022, it was an extensive ablation done at that time. Stable had on and off atrial fibrillation and she was seen by Dr. Ferguson, he had adjusted her pacemaker setting for better detection of the atrial fibrillation I recommended titrating the beta-lorna dose. Underwent LENORE with cardioversion in December 05, 2020 and still in sinus rhythm. C/o occasional episode of palpitations. Pacemaker sensitivity was adjusted by Dr. Ferguson. Patient was intolerant to amiodarone, Multaq, reports she failed Sotalol, Tikosyn, Flecainide Intolerant to metoprolol due to generalized fatigue. She was referred to for evaluation, seen by Dr. Sanon. Underwent ablation Jan, complicated by diaphragmatic injury and possible phrenic nerve injury. Was hospitalized for 2 weeks, recovering slowly. Underwent cardioversion in February 2022 She had another electrical cardioversion done in May 2022. Patient has stopped her medication about 4 to 5 days ago due to family emergency and her traveling. Patient was admitted in atrial flutter with rapid ventricular response, underwent electrical cardioversion on 02/02/2023. Maintaining sinus rhythm. Peripheral edema, I will restart home Lasix, continue to monitor. 2D echo was done on May 30, 2022 with normal LV size, EF 55 to 60%, PA pressure 20 mmHg Sinus node dysfunction, history of Medtronic dual-chamber pacemaker, functioning normally. Had it implanted in [place], continue to monitor at this time Generalized fatigue and loss of energy. 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 Had EGD with Dr Valles Hypothyroidism, followed and managed by primary care physician COPD, maintained on bronchodilator. Followed and managed by primary care p hysiciluis antonio Status post Covid 19 infection in June 2020, still complaining of some dyspnea and fatigue since that infection Nonobstructive carotid artery stenosis per carotid duplex done November 2021. History of kidney stone, underwent cystoscopy and right ureteral stone manipulation and insertion of right double-J with Dr. Jenkins on 02/06/22. s/p stent retrieval Supervisory-Addendum Brief Supervisory Addendum Participated in pt care: history, MDM, physical Personally performed: exam, history, MDM Care discussed with: SOLIS Results interpretation: Verified all documentation Notes: Patient was seen and evaluated with Teresa, examination performed, management plan was discussed, agree with the current scribed note, I made few changes to the note using Italic font Patient was seen at bedside, still in sinus rhythm, tolerating current medication well, has been doing well Continue on mass protocol Continue on bronchodilator and monitor TERESA CRESPO Feb 04, 2023 11:31 ERIKA DE LA ROSA MD Feb 04, 2023 15:33
[2023-02-04 11:43] VITALS: BP 113/58
--- NOTE | 2023-02-04 13:19 | Progress Note - Hospitalist ---
Subjective HPI/CC On Admission Date Seen by Provider: Feb 04, 2023 Maria Fernanda Rondon is a 57 year old female with PMH HTN, HLD, AFib s/p ablation x4, SSS s/p pacemaker, hiatal hernia, GERD, anxiety, depression, obesity, who presented with shortness of breath. She has been sick for 3 weeks. She also has a dry cough. She has had chest pain in the center of her chest. She denies abdominal pain, nausea, vomiting. She was seen at an urgent care and was given an antibiotic and cough medicine but has not improved. Subjective/Events-last exam Pt reports feeling a little better than yesterday but had a rough night. Got behind on pain. Objective Exam Vital Signs Vital Signs Date Time Temp Pulse Resp B/P (MAP) Pulse Ox O2 Delivery O2 Flow Rate FiO2 02/04/23 13:00 66 02/04/23 11:43 36.4 17 113/58 (76) 93 Nasal Cannula 2.00 Capillary Refill : Less Than 3 Seconds General Appearance: No Apparent Distress Respiratory: No Respiratory Distress; No Crackles, No Wheezing; Other (on 2lpm) Cardiovascular: Regular Rate, Rhythm, No Murmur Gastrointestinal: Normal Bowel Sounds, Soft Neurologic/Psychiatric: Alert, Oriented x3 Results/Procedures Lab Laboratory Tests 02/04/23 05:16 Patient resulted labs reviewed. Imaging: Reviewed Imaging Report Assessment/Plan Assessment and Plan Assess & Plan/Chief Complaint AFib with RVR Chest pain History of multiple ablations Troponin remains negative Cardiology consulted Cardioverted 02/02 remains in sinus Xarelto Viral URI Chronic respiratory failure with hypoxia Oxygen requirement at 2lpm D-dimer negative Chest xray negative COVID and Flu negative Antitussives as needed MAT protocol 1 blood culture with strep salivarius and strep sanguis(likely a contaminant)- continue cefepime Sputum culture with MURF Continue steroids Pulm consulted, appreciate recs Critical Care Critically Ill Patient ELISE DUDLEY MD Feb 04, 2023 13:19
[2023-02-04] MEDS: ONDANSETRON 4 MG/2 ML (SDV) Z0FRAN IV PRN ×2 (13:58→21:06)
[2023-02-04] MEDS: FLUTICASONE/VILANTEROL 200 MCG 14'S (BREO) IH SCH (14:05)
[2023-02-04] MEDS: FUROSEMIDE 40 MG (LASIX) TAB PO SCH (14:52)
[2023-02-04 15:37] VITALS: BP 123/68
[2023-02-04] MEDS: guaiFENesin/DM (ROBITUSSIN DM) 10 ML UDC PO SCH ×3 (16:08→23:14)
[2023-02-04] MEDS: RIVAROXABAN 20 MG TABLET (XARELTO) PO SCH (17:17)
[2023-02-04] MEDS: PROMETHAZINE/ CODEINE SYRUP 5 ML UDC PO SCH ×2 (17:17→23:14)
[2023-02-04] MEDS ORDERED: PROMETHAZINE/ CODEINE SYRUP 5 ML UDC PO SCH (18:00)
[2023-02-04 19:18] VITALS: BP 128/70
[2023-02-04 23:12] VITALS: BP 103/58
[2023-02-05] MEDS: CEFEPIME INJECTION 1,000 MG in NS (IVPB) 50 ML 50 ML IV SCH ×4 (00:52→20:07)
[2023-02-05] MEDS: RT-ALBUTEROL/IPRATROPIUM 3 ML (DUONEB) VIAL INH SCH ×4 (03:52→21:49)
[2023-02-05 03:57] VITALS: BP 117/67
[2023-02-05] MEDS: guaiFENesin/DM (ROBITUSSIN DM) 10 ML UDC PO SCH ×6 (03:59→23:42)
[2023-02-05 05:59] LABS: BASOPHILS % (AUTO) 0 % (0-10); EOSINOPHILS % (AUTO) 0 % (0-10); HEMATOCRIT 33 % (35-52); HEMOGLOBIN 11.1 g/dL (11.5-16.0); LYMPHOCYTES # (AUTO) 1.1 10^3/uL (1.0-4.0); LYMPHOCYTES % (AUTO) 6 % (12-44); MEAN CORPUSCULAR HEMOGLOBIN 30 pg (25-34); MEAN CORPUSCULAR HGB CONC 33 g/dL (32-36); MEAN CORPUSCULAR VOLUME 89 fL (80-99); MEAN PLATELET VOLUME 11.1 fL (9.0-12.2); MONOCYTES # (AUTO) 0.4 10^3/uL (0.0-1.0); MONOCYTES % (AUTO) 2 % (0-12); NEUTROPHILS # (AUTO) 18.4 10^3/uL (1.8-7.8); NEUTROPHILS % (AUTO) 92 % (42-75); PLATELET COUNT 245 10^3/uL (130-400); WHITE BLOOD COUNT 20.1 10^3/uL (4.3-11.0)
[2023-02-05] MEDS: fentaNYL INJ 100 MCG/2 ML AMP IV PRN (06:01)
[2023-02-05] MEDS: methylPREDNISolone 40 MG/ML (Solu-MEDROL) VIAL IV SCH (06:01)
[2023-02-05] MEDS: BENZONATATE 100 MG CAPSULE PO SCH ×3 (06:14→20:06)
[2023-02-05] MEDS: PROMETHAZINE/ CODEINE SYRUP 5 ML UDC PO SCH ×4 (06:14→23:42)
[2023-02-05 06:15] LABS: POTASSIUM 4.6 MMOL/L (3.6-5.0)
[2023-02-05 06:17] LABS: CALCIUM 9.3 MG/DL (8.5-10.1)
[2023-02-05] MEDS: KCL 20 MEQ TAB (K-DUR) PO SCH (06:19)
[2023-02-05] MEDS: POTASSIUM CL 10MEQ/50ML IVPB 50 ML IV SCH (06:19)
[2023-02-05 06:21] LABS: CREATININE SERUM 0.83 MG/DL (0.60-1.30)
[2023-02-05] MEDS: MAGNESIUM 1 GM/100 ML IVPB 100 ML IV SCH (06:24)
--- NOTE | 2023-02-05 07:17 | Diagnostic Imaging Report ---
Indication: Chest pain and bronchitis Single AP view of the chest is obtained with comparison made to study one day earlier. There is suboptimal inspiration with basilar atelectasis, greater on the right. No pneumothorax is seen. There is no evidence of lobar consolidation or other significant change. IMPRESSION: Increasing basilar atelectasis, particularly on the right. Otherwise no new abnormality is seen. Dictated by: Dictated on workstation # [id number]
[2023-02-05 07:41] VITALS: BP 110/67
[2023-02-05] MEDS: FLUTICASONE/VILANTEROL 200 MCG 14'S (BREO) IH SCH (07:47)
[2023-02-05] MEDS: ASPIRIN enteric coated 81MG TABLET PO SCH (08:15)
[2023-02-05] MEDS: FUROSEMIDE 40 MG (LASIX) TAB PO SCH (08:15)
[2023-02-05] MEDS: PROPAFENONE 225 MG PO SCH ×3 (08:15→20:07)
--- NOTE | 2023-02-05 09:15 | Cardiology Progress Note ---
Subjective Date Seen by Provider: Feb 05, 2023 Time Seen by Provider: 08:35 Subjective/Events-last exam Patient is sitting up in bed, eating breakfast. Objective-Cardiology Exam Last Set of Vital Signs Vital Signs 02/05/23 02/05/23 02/05/23 12:00 13:54 14:41 Temp 36.9 Pulse 64 Resp 18 B/P (MAP) 115/69 (84) Pulse Ox 91 O2 Delivery Nasal Cannula O2 Flow Rate 2.00 I&O Intake and Output 02/05/23 00:00 Intake Total 1350 ml Balance 1350 ml Intake Oral 1300 ml IV Total 50 ml # Voids 5 General: Alert, Oriented X3, Cooperative HEENT: Atraumatic, PERRLA Neck: Supple, No JVD, No Thyromegaly Lungs: Normal Air Movement, Other (Bilateral rhonchi) Heart: Regular Rate, Normal S1, Normal S2, No Murmurs Abdomen: Normal Bowel Sounds, Soft, No Tenderness, No Hepatosplenomegaly, No Masses Extremities: No Clubbing, No Cyanosis, No Edema, Normal Pulses, No Tenderness/Swelling Skin: No Rashes, No Breakdown, No Significant Lesion Neuro: Normal Gait, Normal Speech, Strength at 5/5 X4 Ext, Normal Tone, Sensation Intact Psych/Mental Status: Mental Status NL, Mood NL Results Lab Laboratory Tests 02/05/23 05:40 A/P-Cardiology Admission Diagnosis Acute bronchitis Shortness of breath Atrial flutter Tachycardia Assessment/Plan Acute bronchitis, shortness of breath and cough. Managed by primary care team, encouraged to continue with IS Palpitations secondary to tachycardia. Paroxysmal atrial fibrillation/flutter Had history of ablation in the remote past, patient had a total of 4 ablation procedures last procedure was done in January 2022, it was an extensive ablation done at that time. Stable had on and off atrial fibrillation and she was seen by Dr. Ferguson, he had adjusted her pacemaker setting for better detection of the atrial fibrillation I recommended titrating the beta-lorna dose. Underwent LENORE with cardioversion in December 05, 2020 and still in sinus rhythm. C/o occasional episode of palpitations. Pacemaker sensitivity was adjusted by Dr. Ferguson. Patient was intolerant to amiodarone, Multaq, reports she failed Sotalol, Tikosyn, Flecainide Intolerant to metoprolol due to generalized fatigue. She was referred to for evaluation, seen by Dr. Sanon. 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 Was hospitalized for 2 weeks, recovering slowly. Underwent cardioversion in February 2022 She had another electrical cardioversion done in May 2022. Patient has stopped her medication about 4 to 5 days ago due to family emergency and her traveling. Patient was admitted in atrial flutter with rapid ventricular response, underwent electrical cardioversion on 02/02/2023. Maintaining sinus rhythm. Peripheral edema, lasix restarted 2D echo was done on May 30, 2022 with normal LV size, EF 55 to 60%, PA pressure 20 mmHg Sinus node dysfunction, history of Medtronic dual-chamber pacemaker, functioning normally. Had it implanted in [place], continue to monitor at this time Generalized fatigue and loss of energy. 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 Had EGD with Dr Valles Hypothyroidism, followed and managed by primary care physician COPD, maintained on bronchodilator. Followed and managed by primary care physician Status post Covid 19 infection in June 2020, still complaining of some dyspnea and fatigue since that infection Nonobstructive carotid artery stenosis per carotid duplex done November 2021. History of kidney stone, underwent cystoscopy and right ureteral stone manipulation and insertion of right double-J with Dr. Jenkins on 02/06/22. s/p stent retrieval Supervisory-Addendum Brief Supervisory Addendum Participated in pt care: history, MDM, physical Personally performed: exam, history, MDM Care discussed with: SOLIS Results interpretation: Verified all documentation Notes: Patient was seen and evaluated with Teresa, examination performed, management plan was discussed, agree with the current scribed note, I made few changes to the note using Italic font Patient was seen at bedside, laying down comfortably. Feeling better Still having some cough and shortness of breath Overall reporting improvement Continue current medication and continue to monitor TERESA CRESPO Feb 05, 2023 09:15 ERIKA DE LA ROSA MD Feb 05, 2023 15:27
[2023-02-05] MEDS: ONDANSETRON 4 MG/2 ML (SDV) Z0FRAN IV PRN (10:28)
[2023-02-05] MEDS: HYDROcodone/ACETAMINOPHEN 5 MG/325 MG TABLET PO PRN (10:29)
[2023-02-05] MEDS ORDERED: predniSONE 20 MG TAB PO NR (11:00)
[2023-02-05 12:00] VITALS: BP 115/69
--- NOTE | 2023-02-05 13:03 | Pulmonary Progress Note ---
Standard Progress Note Progress Notes Date Seen by Provider: Feb 05, 2023 Time Seen by Provider: 12:45 Tele-pulmonary Physician, progress note Service provided via interactive audio and video telecommunications [employer] system to a patient admitted to [facility], [place]. Hospital course: (01/31) 57 y/o F admitted for Afib RVR, Chest Pain and chronic Bronchitis (on home 02 2L NC PRN). Pulmonary consulted for chronic cough. Secretions have improved. Currently on scheduled cough meds. A/P: COPD/Bronchospasm-likely 2/2 poorly controlled Asthma/COPD, muscle pain due to severe paroxysmal cough bouts -Cont Prednisone 40 q6 h - Cont scheduled phenergan with codeine and robitussin -monitor for GERD symptoms -PFTs as an outpatient (PFT 12/2021- mostly restrictive defect with low DLCO = significantly worse comparing to 2020) CT chest 10/2022 -tree-in-bud nodularity and scarring is noted within the lateral left lower lobe -unchanged since July 2020 and presumed benign. 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
--- NOTE | 2023-02-05 13:36 | Progress Note - Hospitalist ---
Subjective HPI/CC On Admission Date Seen by Provider: Feb 05, 2023 Maria Fernanda Rondon is a 57 year old female with PMH HTN, HLD, AFib s/p ablation x4, SSS s/p pacemaker, hiatal hernia, GERD, anxiety, depression, obesity, who presented with shortness of breath. She has been sick for 3 weeks. She also has a dry cough. She has had chest pain in the center of her chest. She denies abdominal pain, nausea, vomiting. She was seen at an urgent care and was given an antibiotic and cough medicine but has not improved. Subjective/Events-last exam Pt reports feeling somewhat better tonight but oxygen requirement was up to 3lpm overnight so she is worried about that. Now back down to baseline of 2lpm. Objective Exam Vital Signs Vital Signs Date Time Temp Pulse Resp B/P (MAP) Pulse Ox O2 Delivery O2 Flow Rate FiO2 02/05/23 12:00 36.9 60 18 115/69 (84) 91 Nasal Cannula 2.00 Capillary Refill : Less Than 3 Seconds General Appearance: No Apparent Distress, Chronically ill Cardiovascular: Regular Rate, Rhythm Neurologic/Psychiatric: Alert, Oriented x3 Results/Procedures Lab Laboratory Tests 02/05/23 05:40 Patient resulted labs reviewed. Imaging: Reviewed Imaging Report Assessment/Plan Assessment and Plan Assess & Plan/Chief Complaint AFib with RVR- resolved Chest pain History of multiple ablations Troponin remains negative Cardiology consulted Cardioverted 02/02 remains in sinus Xarelto Viral URI Chronic respiratory failure with hypoxia Oxygen requirement at 2lpm D-dimer negative Chest xray negative COVID and Flu negative Antitussives as needed MAT protocol COntinue inhalers 1 blood culture with strep salivarius and strep sanguis(likely a contaminant)- continue cefepime- completes tomorrow Sputum culture with MURF Continue steroids- switch to oral Pulm consulted, appreciate recs Critical Care Critically Ill Patient ELISE DUDLEY MD Feb 05, 2023 13:36
[2023-02-05 15:51] VITALS: BP 108/56
[2023-02-05] MEDS: SENNA W/DOCUSATE (SENOKOT S) TABLET PO PRN (16:06)
[2023-02-05] MEDS: RIVAROXABAN 20 MG TABLET (XARELTO) PO SCH (17:38)
[2023-02-05] MEDS: HYDROcodone/APAP 7.5 MG/325 MG (LORTAB, LORCET PLUS) TABLET PO PRN (17:39)
[2023-02-05 19:26] VITALS: BP 111/59
[2023-02-05 23:21] VITALS: BP 117/67
[2023-02-06] MEDS: RT-ALBUTEROL/IPRATROPIUM 3 ML (DUONEB) VIAL INH SCH ×2 (02:29→09:00)
[2023-02-06 03:35] VITALS: BP 132/79
[2023-02-06] MEDS: guaiFENesin/DM (ROBITUSSIN DM) 10 ML UDC PO SCH ×3 (04:13→12:03)
[2023-02-06] MEDS: ONDANSETRON 4 MG/2 ML (SDV) Z0FRAN IV PRN (04:13)
[2023-02-06] MEDS: HYDROcodone/APAP 7.5 MG/325 MG (LORTAB, LORCET PLUS) TABLET PO PRN (04:13)
[2023-02-06] MEDS: PROMETHAZINE/ CODEINE SYRUP 5 ML UDC PO SCH ×2 (05:36→12:03)
[2023-02-06] MEDS: BENZONATATE 100 MG CAPSULE PO SCH (05:37)
[2023-02-06 05:46] LABS: BASOPHILS % (AUTO) 0 % (0-10); EOSINOPHILS % (AUTO) 0 % (0-10); HEMATOCRIT 35 % (35-52); HEMOGLOBIN 11.6 g/dL (11.5-16.0); LYMPHOCYTES # (AUTO) 1.3 10^3/uL (1.0-4.0); LYMPHOCYTES % (AUTO) 7 % (12-44); MEAN CORPUSCULAR HEMOGLOBIN 29 pg (25-34); MEAN CORPUSCULAR HGB CONC 33 g/dL (32-36); MEAN CORPUSCULAR VOLUME 89 fL (80-99); MEAN PLATELET VOLUME 10.9 fL (9.0-12.2); MONOCYTES # (AUTO) 0.7 10^3/uL (0.0-1.0); MONOCYTES % (AUTO) 4 % (0-12); NEUTROPHILS % (AUTO) 88 % (42-75); PLATELET COUNT 261 10^3/uL (130-400); WHITE BLOOD COUNT 18.3 10^3/uL (4.3-11.0)
[2023-02-06 05:49] LABS: POTASSIUM 4.3 MMOL/L (3.6-5.0)
[2023-02-06 05:55] LABS: CREATININE SERUM 0.99 MG/DL (0.60-1.30)
[2023-02-06 05:57] LABS: MAGNESIUM 2.1 MG/DL (1.6-2.4)
[2023-02-06] MEDS: KCL 20 MEQ TAB (K-DUR) PO SCH (06:02)
[2023-02-06] MEDS: MAGNESIUM 1 GM/100 ML IVPB 100 ML IV SCH (06:02)
[2023-02-06] MEDS: POTASSIUM CL 10MEQ/50ML IVPB 50 ML IV SCH (06:02)
[2023-02-06] MEDS ORDERED: predniSONE 20 MG TAB PO SCH (07:00)
[2023-02-06 07:50] VITALS: BP 138/64
[2023-02-06] MEDS: FUROSEMIDE 40 MG (LASIX) TAB PO SCH (08:26)
[2023-02-06] MEDS: PROPAFENONE 225 MG PO SCH ×2 (08:26→14:01)
[2023-02-06] MEDS: ASPIRIN enteric coated 81MG TABLET PO SCH (08:26)
[2023-02-06] MEDS: SENNA W/DOCUSATE (SENOKOT S) TABLET PO PRN (08:38)
[2023-02-06] MEDS ORDERED: polyethylene glycoL POWDER 17 GM (MIRALAX) PACK PO ONE (08:45)
--- NOTE | 2023-02-06 09:54 | Discharge Inst-Simple/Standard ---
Discharge Inst-Standard Discharge Medications New, Converted or Re-Newed RX: Transmitted to Pharmacy Patient Instructions/Follow Up Plan of Care/Instructions/FU: Please continue to take your medications as written. Please follow up with your primary care doctor to follow up this hospital stay. Activity as Tolerated: Yes Discharge Diet: Cardiac Diet Return to The Hospital For: Chest pain, shortness of breath, fever, weakness, if you feel you are getting worse. ELISE DUDLEY MD Feb 06, 2023 09:54
[2023-02-06] MEDS ORDERED: FLUT1BLS IH (09:59)
[2023-02-06] MEDS ORDERED: RELABEL FOR HOME USE MC SCH (10:00)
--- NOTE | 2023-02-06 10:31 | Cardiology Progress Note ---
Subjective Date Seen by Provider: Feb 06, 2023 Time Seen by Provider: 10:30 Subjective/Events-last exam Patient was seen at bedside, laying down comfortably, feeling better, breathing better Review of Systems General: No Chills, No Night Sweats, No Fatigue, No Malaise, No Appetite, No Other HEENT: No Head Aches, No Visual Changes, No Eye Pain, No Ear Pain, No Dyspha james, No Sinus Congestion, No Post Nasal Drip, No Sore Throat, No Other Pulmonary: No Dyspnea, No Cough, No Pleuritic Chest Pain, No Other Cardiovascular: No: Chest Pain, Palpitations, Orthopnea, Paroxysmal Noc. Dyspnea, Edema, Lt Headedness, Other Objective-Cardiology Exam Last Set of Vital Signs Vital Signs 02/06/23 02/06/23 07:50 08:00 Temp 36.2 Pulse 63 Resp 18 B/P (MAP) 138/64 (88) Pulse Ox 94 O2 Delivery Room Air O2 Flow Rate 2.00 I&O Intake and Output 02/06/23 00:00 Intake Total 1530 ml Balance 1530 ml Intake Oral 1330 ml IV Total 200 ml # Voids 6 General: Alert, Oriented X3, Cooperative HEENT: Atraumatic, PERRLA Neck: Supple, No JVD, No Thyromegaly Lungs: Normal Air Movement, Other (Bilateral rhonchi) Heart: Regular Rate, Normal S1, Normal S2, No Murmurs Abdomen: Normal Bowel Sounds, Soft, No Tenderness, No Hepatosplenomegaly, No Masses Extremities: No Clubbing, No Cyanosis, No Edema, Normal Pulses, No Tenderness/Swelling Skin: No Rashes, No Breakdown, No Significant Lesion Neuro: Normal Gait, Normal Speech, Strength at 5/5 X4 Ext, Normal Tone, Sensation Intact Psych/Mental Status: Mental Status NL, Mood NL Results Lab Laboratory Tests 02/06/23 05:27 A/P-Cardiology Admission Diagnosis Acute bronchitis Shortness of breath Atrial flutter Tachycardia Assessment/Plan Acute bronchitis, shortness of breath and cough. Managed by primary care team, encouraged to continue with IS Palpitations secondary to tachycardia. Paroxysmal atrial fibrillation/flutter Had history of ablation in the remote past, patient had a total of 4 ablation procedures last procedure was done in January 2022, it was an extensive ablation done at that time. Stable had on and off atrial fibrillation and she was seen by Dr. Ferguson, he had adjusted her pacemaker setting for better detection of the atrial fibrillation I recommended titrating the beta-lorna dose. Underwent LENORE with cardioversion in December 05, 2020 and still in sinus rhythm. C/o occasional episode of palpitations. Pacemaker sensitivity was adjusted by Dr. Ferguson. Patient was intolerant to amiodarone, Multaq, reports she failed Sotalol, Tikosyn, Flecainide Intolerant to metoprolol due to generalized fatigue. She was referred to for evaluation, seen by Dr. Sanon. 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 Was hospitalized for 2 weeks, recovering slowly. Underwent cardioversion in February 2022 She had another electrical cardioversion done in May 2022. Patient has stopped her medication about 4 to 5 days ago due to family emergency and her traveling. Patient was admitted in atrial flutter with rapid ventricular response, underwent electrical cardioversion on 02/02/2023. Maintaining sinus rhythm. Peripheral edema, improved with Lasix. Feeling better. 2D echo was done on May 30, 2022 with normal LV size, EF 55 to 60%, PA pressure 20 mmHg Sinus node dysfunction, history of Medtronic dual-chamber pacemaker, functioning normally. Had it implanted in [place], continue to monitor at this time Generalized fatigue and loss of energy. 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 Had EGD with Dr Valles Hypothyroidism, followed and managed by primary care physician COPD, maintained on bronchodilator. Followed and managed by primary care physician Status post Covid 19 infection in June 2020, still complaining of some dyspnea and fatigue since that infection Nonobstructive carotid artery stenosis per carotid duplex done November 2021. History of kidney stone, underwent cystoscopy and right ureteral stone manipulation and insertion of right double-J with Dr. Jenkins on 02/06/22. s/p stent retrieval ERIKA DE LA ROSA MD Feb 06, 2023 10:31
[2023-02-06] MEDS ORDERED: HYDR-34 PO (10:36)
[2023-02-06] MEDS ORDERED: PROM473S9 PO (10:36)
[2023-02-06] MEDS ORDERED: PRED10TA22 PO (10:36)
[2023-02-06] MEDS ORDERED: BENZ100C18 PO (10:36)
[2023-02-06] MEDS ORDERED: GUAI5SYR PO (10:36)
--- NOTE | 2023-02-06 10:37 | Discharge Summary ---
Diagnosis/Chief Complaint Date of Admission Jan 31, 2023 at 23:15 Date of Discharge Discharge Date: Feb 06, 2023 Admission Diagnosis AFib with RVR Primary Care Heriberto Nunn MD Discharge Diagnosis (1) Atrial fibrillation with rapid ventricular response Status: Acute (2) Chest pain Status: Acute (3) Viral URI with cough Status: Acute (4) Chronic respiratory failure with hypoxia Status: Chronic Discharge Summary Discharge Physical Exam Allergies: Coded Allergies: Latex, Natural Rubber (Verified Allergy, Intermediate, Shortness of Breath, PARALIZED DIAHPHRAM, 02/17/22) Vitals & I&Os Vital Signs Date Time Temp Pulse Resp B/P (MAP) Pulse Ox O2 Delivery O2 Flow Rate FiO2 02/06/23 14:10 02/06/23 13:00 61 02/06/23 11:35 36.9 20 92 Room Air 02/06/23 09:00 2.00 General Appearance: No Apparent Distress, Chronically ill Respiratory: Lungs Clear, No Respiratory Distress; No Rhonci, No Wheezing; Other (persistant cough) Cardiovascular: Regular Rate, Rhythm, No Murmur Gastrointestinal: Normal Bowel Sounds, Soft Neurologic/Psychiatric: Alert, Oriented x3 Hospital Course Patient was admitted to the hospital secondary to atrial fibrillation with rapid ventricular rate. She was seen by cardiology and underwent cardioversion with success in converting her to sinus rhythm. She maintained this. She was continued on diltiazem while in the hospital and her home Xarelto for stroke prophylaxis. She did have a persistent cough and 3-week duration of viral URI symptoms. She was requiring minimal oxygen roughly 1 to 2 L throughout her admission. She was seen in consultation by pulmonology. Her oxygen was stable from multiple days and her cough was improving though very slowly. 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 She reports having an appointment scheduled with him next week. She was discharged home in stable improved condition to follow- up with her freight rate analyst as already scheduled and with Dr. Avilez her primary care physician in 1 to 2 weeks. She is to follow-up with Dr. Ruvalcaba as well per his recommendations. Labs (last 24 hrs) Microbiology 02/02/23 Gram Stain - Final, Complete 02/02/23 Sputum Culture - Final, Complete Usual upper respiratory raysa 01/31/23 Urine Culture - Final, Complete NO GROWTH 01/31/23 Blood Culture - Final, Complete No growth Patient resulted labs reviewed. Pending Labs Imaging: Reviewed Imaging Report Discussion & Recommendations Discharge Planning: >30 minutes discharge planning Discharge Home Medications: Active Scripts Active Prednisone 10 Mg Tab.ds.pk 10 Mg PO DAILY Take 6 tabs(60mg)daily,decrease by 1 tab(10mg)every other day. Promethazine-Codeine Solution (Promethazine HCl/Codeine) 6.25 Mg-10 Mg/5 Ml Syrup 5 Ml PO Q6H Guaifenesin Dm Syrup (Guaifenesin/Dextromethorphan) 100 Mg-10 Mg/5 Ml Syrup 10 Ml PO Q4H Tessalon Perles (Benzonatate) 100 Mg Capsule 200 Mg PO Q8HR HYDROcodone/APAP 7.5/325 TAB (Acetaminophen/Hydrocodone Bitart) 1 Ea Tablet 1 Ea PO Q4H PRN Breo Ellipta 200-25 Mcg INH (Fluticasone/Vilanterol) 200 Mcg-25 Mcg/Dose Blst.w.dev 0 Each IH DAILY Use daily Reported Diltiazem 24Hr ER (Diltiazem HCl) 240 Mg Cap.er.24h 240 Mg PO DAILY Acetaminop-Codeine 120-12 mg/5 (Acetaminophen with Codeine) 120 Mg-12 Mg/5 Ml Solution 5 Ml PO Q6H PRN Spiriva Respimat 2.5MCG/ACTUATION (Tiotropium Jasper) 2.5 Mcg/Actuation Mist.i nhal 1 Puff IH BID Propafenone HCl 225 Mg Tablet 225 Mg PO TID Potassium Chloride 10 Meq Tab.er.prt 10 Meq PO HS Flonase Allergy Relief (Fluticasone Propionate) 50 Mcg/Actuation Odanah.susp 1 Odan[place] NS DAILY PRN Ventolin Hfa (Albuterol Sulfate) 1 Puff Puff 2 Puff INH Q4H PRN Colace (Docusate Sodium) 100 Mg Capsule 100 Mg PO HS Levocetirizine Dihydrochloride 5 Mg Tablet 5 Mg PO HS [Vit C/Vit D/Zinc] 1 Ea PO HS Fish Oil 1,200 mg Fish Oil (Fish Oil/Dha/Epa) 1,200 Mg-144 Mg-216 Mg Capsule 1 Each PO HS Vitamin E (Vitamin E Mixed) 1,000 Unit Capsule 1,000 Unit PO HS Furosemide 40 Mg Tablet 40 Mg PO HS Xarelto (Rivaroxaban) 20 Mg Tablet 20 Mg PO 1900 Sumatriptan Succinate 50 Mg Tablet 50 Mg PO UD PRN TAKE 1 TABLET AT ONSET OF MIGRAINE AND MAY REPEAT 1 DOSE AFTER 2 HOURS IF NO RELIEF Albuterol Sulfate 2.5 Mg/3 Ml (0.083 %) Vial.neb 3 Ml NEB Q4H PRN Pantoprazole Sodium 40 Mg Tablet.dr 40 Mg PO HS Diazepam 5 Mg Tablet 5 Mg PO BID PRN Instructions to patient/family Please see electronic discharge instructions given to patient. ELISE DUDLEY MD Feb 06, 2023 10:37
[2023-02-06] MEDS ORDERED: FLUTICASONE/VILANTEROL 200 MCG 14'S (BREO) IH SCH (11:30)
[2023-02-06 11:35] VITALS: BP 137/83
[2023-02-06] MEDS: FLUTICASONE/VILANTEROL 200 MCG 14'S (BREO) IH SCH (12:08)
== END 2023-02-06 14:25 | disposition home or self-care (01) | DRG 309 ==
LOC: EDUNIT# 18:43 → ER 18:45 → ICU 23:15 → 4TH 02-03 12:21
PROVIDERS: ADMIT Internal Medicine; ATTEND Internal Medicine
PROC: 5A2204Z Restoration of Cardiac Rhythm, Single (ICD-10-PCS; principal; 2023-02-02)
PROC: 5A0935A Assistance with Respiratory Ventilation, Less than 24 Consecutive Hours, High Flow/Velocity Cannula (ICD-10-PCS; 2023-02-05)
DX: I48.92 Unspecified atrial flutter (principal); J44.1 Chronic obstructive pulmonary disease with (acute) exacerbation; J96.11 Chronic respiratory failure with hypoxia; J06.9 Acute upper respiratory infection, unspecified; I10 Essential (primary) hypertension; Z95.0 Presence of cardiac pacemaker; K21.9 Gastro-esophageal reflux disease without esophagitis; F41.9 Anxiety disorder, unspecified; F32.A Depression, unspecified; E66.9 Obesity, unspecified; Z20.822 Contact with and (suspected) exposure to COVID-19; I25.2 Old myocardial infarction; E78.00 Pure hypercholesterolemia, unspecified; Z86.73 Personal history of transient ischemic attack (TIA), and cerebral infarction without residual deficits; E03.9 Hypothyroidism, unspecified; G89.29 Other chronic pain; M54.9 Dorsalgia, unspecified; F43.10 Post-traumatic stress disorder, unspecified; J44.9 Chronic obstructive pulmonary disease, unspecified; J98.01 Acute bronchospasm; D72.829 Elevated white blood cell count, unspecified; T38.0X5A Adverse effect of glucocorticoids and synthetic analogues, initial encounter; U09.9 Post COVID-19 condition, unspecified; I65.29 Occlusion and stenosis of unspecified carotid artery; Z68.33 Body mass index [BMI] 33.0-33.9, adult
CPT/HCPCS: 36415; 71045; 80048; 80053; 80061; 80306; 81000; 82150; 82550; 82553; 83605; 83690; 83735; 83874; 83880; 84484; 85007; 85025; 85027; 85379; 85610; 85730; 87040; 87070; 87077; 87081; 87088; 87205; 87636; 93005; 93041; 94640; 94760; 94761; 96361; 96365; 96375

== ENCOUNTER 2023-02-09 10:46 | Observation (INO) | payer MEDICARE, MEDICAID ==
[~2023-02-09] VITALS: Ht 162.6 cm; Wt 87.3 kg
[~2023-02-09 10:46] MED LIST changes: +ACET118E PO; +BENZ100C18 PO; +DILT240C91 PO; +DOXY100C5 PO; +FLUT1BLS IH; +GUAI5SYR PO; +HYDR-34 PO; +PRED10TA22 PO; +PROM473S9 PO
[2023-02-09] MEDS ORDERED: NS IV 1000 ML 1,000 ML IV STA (11:13)
--- NOTE | 2023-02-09 11:13 | ED Chest Pain ---
General Chief Complaint: Cardiac/General Problems Stated Complaint: INCREASED HEART RATE | LIGHTHEADED Source: patient Exam Limitations: no limitations (MATT AUSTIN) History of Present Illness Date Seen by Provider: Feb 09, 2023 Time Seen by Provider: 11:11 Initial Comments Patient is a 57-year-old female with a history of coronary artery disease, CHF, A-fib with 4 ablations who presents the ED for tachycardia and dizzy nests. Patient states she was discharged from our facility this past Thursday. She was admitted for A-fib with RVR. She had a cardioversion performed by Dr. Ruvalcaba on Thursday. She was treated with antibiotics and steroids for secondary bronchitis. Patient states since she has been home she has been feeling weak fatigue. She has decreased energy levels. She states every time she gets up she feels like she is going to pass out. She states she feels drunk. Associate shortness of breath with some mild chest discomfort intermittently since she has been discharged. She is currently on Xarelto. She denies fever, vomiting, diarrhea, abdominal pain, headache, dizziness, visual changes, dysuria, hematuria. She states she has had a mild cough but that has improved. She is currently on steroids at this time (MATT AUSTIN) Time Seen by Provider: 10:50 Initial Comments I received report of chief complaint from the data processing clerk at 1050. EKG and telemetry were ordered at that time while patient was waiting to be roomed. This patient is well-known to me from prior visits and is known to have atrial fibrillation/flutter. (KINGSLEY CURTIS MD) Allergies and Home Medications Allergies Coded Allergies: Latex, Natural Rubber (Verified Allergy, Intermediate, Shortness of Breath, PARALIZED DIAHPHRAM, 02/17/22) Patient Home Medication List Home Medication List Reviewed: Yes (MATT AUSTIN) Acetaminophen with Codeine (Acetaminop-Codeine 120-12 mg/5) 120 Mg-12 Mg/5 Ml Solution, 5 ML PO Q6H PRN for PAIN-MODERATE (5-7), (Reported) Entered as Reported by: LEOBARDO CARLIN on 02/02/23 1914 Last Action: Reviewed Albuterol Sulfate (Albuterol Sulfate) 2.5 Mg/3 Ml (0.083 %) Vial.neb, 3 ML NEB Q4H PRN for SHORTNESS OF BREATH, (Reported) Entered as Reported by: LEOBARDO CARLIN on 03/10/22 155 Last Action: Continued Albuterol Sulfate (Ventolin Hfa) 1 Puff Puff, 2 PUFF INH Q4H PRN for SHORTNESS OF BREATH, (Reported) Entered as Reported by: JORDAN CEDILLO on 12/31/2244 Last Action: Continued Benzonatate (Tessalon Perles) 100 Mg Capsule, 200 MG PO Q8HR Prescribed by: ELISE SORENSEN on 02/06/23 1036 Last Action: Continued Diazepam (Diazepam) 5 Mg Tablet, 5 MG PO BID PRN for ANXIETY, (Reported) Entered as Reported by: LEOBARDO CARLIN on 08/26/21 1043 Last Action: Continued Diltiazem HCl (Diltiazem 24Hr ER) 240 Mg Cap.er.24h, 240 MG PO DAILY, (Reported) Entered as Reported by: LEOBARDO CARLIN on 02/02/23 1352 Last Action: Continued Docusate Sodium (Colace) 100 Mg Capsule, 100 MG PO HS, (Reported) Entered as Reported by: RAJAN SWANN on 10/13/22 1711 Last Action: Continued Fish Oil/Dha/Epa (Fish Oil 1,200 mg Fish Oil) 1,200 Mg-144 Mg-216 Mg Capsule, 1 EACH PO HS, (Reported) Entered as Reported by: LEOBARDO CARLIN on 03/10/221557 Last Action: Converted Fluticasone Propionate (Flonase Allergy Relief) 50 Mcg/Actuation [place].susp, 1 SPRAY NS DAILY PRN for CONGESTION, (Reported) Entered as Reported by: JORDAN CEDILLO on 12/31/2244 Last Action: Converted Fluticasone/Vilanterol (Breo Ellipta 200-25 Mcg INH) 200 Mcg-25 Mcg/Dose Blst.w .dev, 0 EACH IH DAILY Prescribed by: ELISE SORENSEN on 02/06/23 0959 Last Action: Continued Furosemide (Furosemide) 40 Mg Tablet, 40 MG PO HS, (Reported) Entered as Reported by: LEOBARDO CARLIN on 03/10/22 155 Last Action: Continued Guaifenesin/Dextromethorphan (Guaifenesin Dm Syrup) 100 Mg-10 Mg/5 Ml Syrup, 10 ML PO Q4H Prescribed by: ELISE SORENSEN on 02/06/23 1036 Last Action: Continued Hydrocodone Bit/Acetaminophen (HYDROcodone/APAP 7.5/325 TAB) 1 Ea Tablet, 1 EA PO Q4H PRN for PAIN-MODERATE (5-7) Prescribed by: ELISE SORENSEN on 02/06/23 1037 Last Action: Continued Levocetirizine Dihydrochloride (Levocetirizine Dihydrochloride) 5 Mg Tablet, 5 MG PO HS, (Reported) Entered as Reported by: KERLINE JORGENSEN on 05/30/22 1012 Last Action: Converted Pantoprazole Sodium (Pantoprazole Sodium) 40 Mg Tablet.dr, 40 MG PO HS, (Reported) Entered as Reported by: MYRTLE VANN on 02/04/22 1240 Last Action: Continued Potassium Chloride (Potassium Chloride) 10 Meq Tab.er.prt, 10 MEQ PO HS, (Reported) Entered as Reported by: JORDAN CEDILLO on 12/31/22 0944 Last Action: Converted Prednisone (Prednisone) 10 Mg Tab.ds.pk, 10 MG PO DAILY Prescribed by: ELISE SORENSEN on 02/06/23 1036 Last Action: Reviewed Promethazine HCl/Codeine (Promethazine-Codeine Solution) 6.25 Mg-10 Mg/5 Ml Syrup, 5 ML PO Q6H Prescribed by: LEISE SORENSEN on 02/06/23 1037 Last Action: Continued Propafenone HCl (Propafenone HCl) 225 Mg Tablet, 225 MG PO TID, (Reported) Entered as Reported by: JORDAN CEDILLO on 12/31/22 0944 Last Action: Held Rivaroxaban (Xarelto) 20 Mg Tablet, 20 MG PO 1900, (Reported) Entered as Reported by: LEOBARDO CARLIN on 03/10/22 536 Last Action: Continued Sumatriptan Succinate (Sumatriptan Succinate) 50 Mg Tablet, 50 MG PO UD PRN for MIGRAINE, (Reported) Entered as Reported by: LEOBARDO CARLIN on 03/10/221557 Last Action: Continued Tiotropium [place] (Spiriva Respimat 2.5MCG/ACTUATION) 2.5 Mcg/Actuation Mist.inhal, 1 PUFF IH BID, (Reported) Entered as Reported by: JORDAN CEDILLO on 12/31/22943 Last Action: Continued Vitamin E Mixed (Vitamin E) 1,000 Unit Capsule, 1,000 UNIT PO HS, (Reported) Entered as Reported by: LEOBARDO CARLIN on 03/10/221557 Last Action: Reviewed [Vit C/Vit D/Zinc] , 1 EA PO HS, (Reported) Entered as Reported by: LEOBARDO CARLIN on 03/10/221557 Last Action: Reviewed Discontinued Medications Diltiazem HCl (Diltiazem 24Hr Cd) 180 Mg Cap.er.24h, 180 MG PO HS, (Reported) Entered as Reported by: JORDAN CEDILLO on 12/31/22943 Doxycycline Hyclate (Doxycycline Hyclate) 100 Mg Capsule, 100 MG PO BID, (Reported) Entered as Reported by: LEOBARDO CARLIN on 02/02/23 1352 Review of Systems Review of Systems Constitutional: No chills, No diaphoresis; dizziness; No malaise; weakness EENTM: No Double Vision, No Eye Pain Respiratory: Cough; Denies Orthopnea Cardiovascular: Chest Pain Gastrointestinal: Denies Diarrhea, Denies Nausea, Denies Vomiting Genitourinary: Denies Burning, Denies Discharge, Denies Drainage, Denies Frequency Musculoskeletal: No back pain, No gout Skin: No change in color, No change in hair/nails (MATT AUSTIN) All Other Systems Reviewed Negative Unless Noted: Yes (MATT AUSTIN) Past Ffzucki-Ptpcfd-Rqthlv Hx Immunizations Up To Date Tetanus Booster (TDap): Less than 5yrs PED Vaccines UTD: Yes First/Initial COVID19 Vaccinat: NONE Second COVID19 Vaccination Arley: NONE Third COVID19 Vaccination Date: NONE (MATT AUSTIN) Seasonal Allergies Seasonal Allergies: Yes (MATT AUSTIN) Past Medical History Surgery/Hospitalization HX: TONSILLECTOMY/HYSTERECTOMY/CHOLECYSTECTOMY/PACEMAKER Surgeries: Yes Abdominal, Appendectomy, Bladder Surgery, Cardiac, Gallbladder, Hysterectomy, Pacemaker, Renal, Tonsillectomy Respiratory: Yes (HX PARALYZED RT DIAPHRAGM) Pneumonia, Chronic Bronchitis, COPD Currently Using CPAP: No Currently Using BIPAP: No Cardiac: Yes (PACEMAKER; NSTEMI) Atrial Fibrillation, Heart Attack, High Cholesterol, Hypertension Neurological: Yes (Right diaphragmatic paralysis) Stroke Female 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 Disorders: Denies 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 Sexually Transmitted Disease: No Genitourinary: Yes Kidney Stones Gastrointestinal: Yes Gastroesophageal Reflux, Reina's Esophagus, Hemorrhoids, Hiatal Hernia Musculoskeletal: Yes Degenerate Disk Disease, Back Injury, Chronic Back Pain Endocrine: Yes Hypothyroidsim HEENT: No Loss of Vision: Denies Hearing Impairment: Denies Cancer: Yes Colon Psychosocial: Yes Anxiety, PTSD, Depression Integumentary: Yes Psoriasis Blood Disorders: No (MATT AUSTIN) Family Medical History Colon cancer No Pertinent Family Hx PT WITH A MULTITUDE OF VISITS FOR VARIOUS COMPLAINTS OF 01/31/23, SHE HAS HAD 43 VISITS SINCE HER FIRST VISIT HERE JULY 2020. (MATT AUSTIN) Physical Exam Vital Signs Vital Signs - First Documented 02/09/23 10:50 Temp 36.8 Pulse 129 Resp 19 B/P (MAP) 127/88 (101) Pulse Ox 98 O2 Delivery Room Air (KINGSLEY CURTIS MD) Vital Signs Capillary Refill : (MATT AUSTIN) Height, Weight, BMI Height: '" Weight: lbs. oz. kg; 34.11 BMI Method: General Appearance: No Apparent Distress, WD/WN HEENT: PERRL/EOMI, TMs Normal, Normal ENT Inspection, Pharynx Normal Neck: Full Range of Motion, Normal Inspection, Non Tender, Supple Respiratory: Chest Non Tender, Lungs Clear, Normal Breath Sounds, No Accessory Muscle Use, No Respiratory Distress Cardiovascular: No Edema, No Gallop, No JVD, No Murmur, Tachycardia Gastrointestinal: Normal Bowel Sounds, No Organomegaly, No Pulsatile Mass, Non Tender Extremity: Normal Capillary Refill, Normal Inspection, Normal Range of Motion Neurologic/Psychiatric: Alert, Oriented x3, No Motor/Sensory Deficits, Normal Mood/Affect, 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 field 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 II-XII Norm as Tested Skin: Normal Color, Warm/Dry (MATT AUSTIN) Progress/Results/Core Measures Results/Orders Lab Results Laboratory Tests Test 02/09/23 11:00 Range/Units White Blood Count 12.4 H 4.3-11.0 10^3/uL Red Blood Count 5.51 H 3.80-5.11 10^6/uL Hemoglobin 16.0 # 11.5-16.0 g/dL Hematocrit 48 35-52 % Mean Corpuscular Volume 86 80-99 fL Mean Corpuscular Hemoglobin 29 25-34 pg Mean Corpuscular Hemoglobin Concent 34 32-36 g/dL Red Cell Distribution Width 12.9 10.0-14.5 % Platelet Count 375 130-400 10^3/uL Mean Platelet Volume 10.3 9.0-12.2 fL Immature Granulocyte % (Auto) 2 % Neutrophils (%) (Auto) 66 42-75 % Lymphocytes (%) (Auto) 26 12-44 % Monocytes (%) (Auto) 4 0-12 % Eosinophils (%) (Auto) 1 0-10 % Basophils (%) (Auto) 0 0-10 % Neutrophils # (Auto) 8.2 H 1.8-7.8 10^3/uL Lymphocytes # (Auto) 3.3 1.0-4.0 10^3/uL Monocytes # (Auto) 0.5 0.0-1.0 10^3/uL Eosinophils # (Auto) 0.1 0.0-0.3 10^3/uL Basophils # (Auto) 0.0 0.0-0.1 10^3/uL Immature Granulocyte # (Auto) 0.3 H 0.0-0.1 10^3/uL Prothrombin Time 23.6 H 12.2-14.7 SEC INR Comment 2.1 H 0.8-1.4 Activated Partial Thromboplast Time 38 H 24-35 SEC Sodium Level 139 135-145 MMOL/L Potassium Level 3.9 3.6-5.0 MMOL/L Chloride Level 105 98-107 MMOL/L Carbon Dioxide Level 25 21-32 MMOL/L Anion Gap 9 5-14 MMOL/L Blood Urea Nitrogen 19 H 7-18 MG/DL Creatinine 1.06 0.60-1.30 MG/DL Estimat Glomerular Filtration Rate 62 BUN/Creatinine Ratio 18 Glucose Level 132 H 70-105 MG/DL Calcium Level 9.4 8.5-10.1 MG/DL Corrected Calcium 9.5 8.5-10.1 MG/DL Magnesium Level 2.1 1.6-2.4 MG/DL Total Bilirubin 0.5 0.1-1.0 MG/DL Aspartate Amino Transf (AST/SGOT) 22 5-34 U/L Alanine Aminotransferase (ALT/SGPT) 56 H 0-55 U/L Alkaline Phosphatase 108 40-136 U/L Myoglobin 46.3 10.0-92.0 NG/ML Troponin I < 0.028 <0.028 NG/ML B-Type Natriuretic Peptide 61.8 <100.0 PG/ML Total Protein 7.0 6.4-8.2 GM/DL Albumin 3.9 3.2-4.5 GM/DL Lipase 15 8-78 U/L Thyroid Stimulating Hormone (TSH) 3.98 0.35-4.94 UIU/ML (KINGSLEY CURTIS MD) My Orders Orders - KINGSLEY CURTIS MD Ekg Tracing (02/09/23 10:50) Monitor-Rhythm Ecg Trace Only (02/09/23 10:50) (KINGSLEY CURTIS MD) Vital Signs/I&O 02/09/23 02/09/23 10:50 10:50 Temp 36.8 Pulse 129 Resp 19 B/P (MAP) 127/88 (101) Pulse Ox 98 O2 Delivery Room Air Room Air (KINGSLEY CURTIS MD) Comment atrial flutter/Sinus tachycardia with rvr at 127 bpm, QRS duration 80 MS, QTc 4279 MS. (MATT AUSTIN) Departure Communication (PCP) Reviewed previous ER visits, H&P, lab testing. Reviewed recent hospital visit. Patient Was recently discharged this past Thursday secondary to atrial flutter with RVR. Had a cardioversion performed Dr. Ruvalcaba last Thursday. Treated for bronchitis with antibiotics inpatient and discharged with prednisone which she has been doing. She states the coughing has improved but been having intermittent chest pain short of breath feeling like she is drunk weakness and fatigue. Differential diagnoses A-fib with RVR, ACS, dehydration. On arrival heart rate was 127 which appears to be atrial flutter with tachycardia with RVR. General cardiac work-up was ordered. Patient white blood count 12.4. Chemistry was grossly unremarkable. Normal troponin and BNP. Chest x-ray unremarkable. She did have a D-dimer ordered during her stay which was unremarkable. She is currently on Xarelto. She does take Cardizem to 240 mg p.o. ER. Patient was discussed with Dr. Ruvalcaba. Recommended no Cardizem drip at this time. Suggest p.o. Cardizem and ordered the medication as this is currently chronic. Her blood pressure is stable. Dr. Ruvalcaba peanut separator recommended admission at this time and will consult. Patient was discussed with Dr. Sorensen who accept patient. (MATT AUSTIN) Impression Primary Impression: Atrial flutter with rapid ventricular response Disposition: ADMITTED INPATIENT Condition: Stable Admissions Decision to Admit Reason: Admit from ER (General) Decision to Admit/Date: Feb 09, 2023 Time/Decision to Admit Time: 12:48 (MATT AUSTIN) Departure-Patient Inst. Referrals: JIMY BENNETT MD (PCP/Family) Primary Care Physician ATTENDING PHYSICIAN NOTE: I began work on this case when I received report of chief complaint from the data processing clerk. EKG and telemetry was ordered at that time while patient was waiting to be roomed. Care was then assumed by SOLIS Jain before I was able to enter the room. I was physically present as attending physician in the emergency department during the care of this patient, but I was not otherwise directly involved in the decision making or delivery of care for this patient. (KINGSLEY CURTIS MD) MATT AUSTIN Feb 09, 2023 11:13 KINGSLEY CURTIS MD Feb 10, 2023 08:08
[2023-02-09] MEDS ORDERED: ASPIRIN 81 MG CHEWABLE TABLET PO ONE (11:15)
[2023-02-09 11:16] LABS: BASOPHILS % (AUTO) 0 % (0-10); EOSINOPHILS # (AUTO) 0.1 10^3/uL (0.0-0.3); EOSINOPHILS % (AUTO) 1 % (0-10); HEMATOCRIT 48 % (35-52); LYMPHOCYTES # (AUTO) 3.3 10^3/uL (1.0-4.0); LYMPHOCYTES % (AUTO) 26 % (12-44); MEAN CORPUSCULAR HEMOGLOBIN 29 pg (25-34); MEAN CORPUSCULAR HGB CONC 34 g/dL (32-36); MEAN CORPUSCULAR VOLUME 86 fL (80-99); MEAN PLATELET VOLUME 10.3 fL (9.0-12.2); MONOCYTES # (AUTO) 0.5 10^3/uL (0.0-1.0); MONOCYTES % (AUTO) 4 % (0-12); NEUTROPHILS # (AUTO) 8.2 10^3/uL (1.8-7.8); NEUTROPHILS % (AUTO) 66 % (42-75); PLATELET COUNT 375 10^3/uL (130-400); WHITE BLOOD COUNT 12.4 10^3/uL (4.3-11.0)
[2023-02-09 11:19] LABS: ALBUMIN 3.9 GM/DL (3.2-4.5); CHLORIDE 105 MMOL/L (98-107); POTASSIUM 3.9 MMOL/L (3.6-5.0); SODIUM 139 MMOL/L (135-145)
[2023-02-09 11:21] LABS: CALCIUM 9.4 MG/DL (8.5-10.1)
[2023-02-09 11:22] LABS: GLUCOSE 132 MG/DL (70-105)
[2023-02-09 11:23] LABS: CARBON DIOXIDE 25 MMOL/L (21-32); INR 2.1 (0.8-1.4); PROTHROMBIN TIME PATIENT 23.6 SEC (12.2-14.7)
[2023-02-09 11:24] LABS: BILIRUBIN,TOTAL 0.5 MG/DL (0.1-1.0)
[2023-02-09 11:25] LABS: ALKALINE PHOSPHATASE 108 U/L (40-136); CREATININE SERUM 1.06 MG/DL (0.60-1.30); GFR ESTIMATED 62
[2023-02-09 11:27] LABS: BUN/CREATININE RATIO 18
[2023-02-09 11:28] LABS: ALANINE AMINOTRANSFERASE 56 U/L (0-55); MAGNESIUM 2.1 MG/DL (1.6-2.4)
[2023-02-09 11:29] LABS: LIPASE 15 U/L (8-78)
--- NOTE | 2023-02-09 11:37 | Diagnostic Imaging Report ---
INDICATION: Chest pain COMPARISON: 02/05/2023 TECHNIQUE: Single radiograph chest dated 02/09/2023. FINDINGS: Pacer device is again identified with a battery pack overlying left chest. The cardiac silhouette is within normal limits in size. No significant pulmonary vascular congestion. Improved aeration of the lungs with the lungs now appearing clear. Stable elevation of the right hemidiaphragm. No pleural effusion. No pneumothorax. No acute osseous abnormality. IMPRESSION: No acute cardiopulmonary abnormality with improved aeration of the lungs when compared to the prior examination. Dictated by: Dictated on workstation # [id number]
[2023-02-09] MEDS ORDERED: dilTIAZem 30 MG TABLET PO STA (12:46)
[2023-02-09] MEDS: dilTIAZem ER 240 MG CAPSULE PO SCH (13:17)
[2023-02-09 13:30] VITALS: BP 123/93
[2023-02-09] MEDS ORDERED: BISACODYL 10 MG SUPPOSITORY PR PRN (13:45)
[2023-02-09] MEDS ORDERED: polyethylene glycoL POWDER 17 GM (MIRALAX) PACK PO PRN (13:45)
[2023-02-09] MEDS ORDERED: ONDANSETRON 4 MG/2 ML (SDV) Z0FRAN IV PRN (13:45)
[2023-02-09] MEDS ORDERED: CALCIUM CARBONATE 500 MG CHEW TABLET PO PRN (13:45)
[2023-02-09] MEDS ORDERED: MELATONIN 3 MG TABLET PO PRN (13:45)
[2023-02-09] MEDS ORDERED: ACETAMINOPHEN 325 MG TABLET PO PRN (13:45)
[2023-02-09] MEDS ORDERED: ANTACID SUSP 30 ML UDC (MYLANTA) PO PRN (13:45)
[2023-02-09 14:00] VITALS: BP 122/93
--- NOTE | 2023-02-09 14:09 | Physical Therapy Evaluation ---
PT Evaluation-General Medical Diagnosis Admission Date Feb 09, 2023 at 13:16 Medical Diagnosis: Tachycardia, dizziness Onset Date: Feb 09, 2023 Therapy Diagnosis Therapy Diagnosis: Gait deficit, strength deficit Precautions Precautions/Isolations: Fall Prevention, Standard Precautions Weight Bear Status Right Lower Extremity: Right Full Weight Bearing Left Lower Extremity: Left Full Weight Bearing Referral Physician: Dr. Sorensen Reason for Referral: Evaluation/Treatment Medical History Pertinent Medical History: Atrial Fib, HTN Social History Home: [facility] Current Living Status: Significant Other Entry Into Home: Stairs With Railing PT Steps Into Home: 14 Prior Prior Level of Function SCALE: Activities may be completed with or without assistive devices. 4-Swxbrwmike-psdtvdg completes the activity by him/herself with no assistance from a helper. 5-Set-up or Clean-up Assistance-helper sets up or cleans up; patient completes activity. [place] assists only prior to or following the activity. 4-Supervision or Touching Assistance-helper provides verbal cues and/or touching /steadying and/or contact guard assistance as patient completes activity. Assistance may be provided throughout the activity or intermittently. 3-Partial/Moderate Assistance-helper does LESS THAN HALF the effort. [place] lifts, holds or supports trunk or limbs, but provides less than half the effort. 2-Substantial/Maximal Assistance-helper does MORE THAN HALF the effort. [place] lifts or holds trunk or limbs and provides more than half the effort. 4-Bnmvvzqiv-jmfedf does ALL the effort. Patient does none of the effort to complete the activity. Or, the assistance of 2 or more helpers is required for the patient to complete the activity. If activity was not attempted, code reason: 7-Patient Refused. 9-Not Applicable-not attempted and the patient did not perform the activity before the current illness, exacerbation or injury. 10-Not Attempted due to Environmental Limitations-(lack of equipment, weather restraints, etc.). 88-Not Attempted due to Medical Conditions or Safety Concerns. Bed Mobility: 6 Transfers (B,C,W/C): 6 Gait: 6 Stairs: 6 Indoor Mobility (Ambulation): Independent Stairs: Independent Prior Devices Use: None PT Evaluation-Current Subjective Patient lying supine in bed upon PT arrival, agreeable to treatment but reports she is "pretty dizzy right now." Patient rates pain at 6-7/10 currently in chest. Objective Patient Orientation: Person, Place, Time, Situation ROM/Strength ROM Lower Extremities WFLs BLEs all planes Strength Lower Extremities 3+/5 Strength BLEs all planes Sensory Vision: Functional Hearing: Functional Sensation Right Lower Extremit: Intact Sensation Left Lower Extremity: Intact Transfers Roll Left to Right (QC): 4 Sit to Lying (QC): 4 Lying to Sitting/Side of Bed(Q: 4 Sit to Stand (QC): 4 Gait Does the Patient Walk?: No and Walking Goal IS indicated Anticipated Mode of Locomotion: Walk Comments/Gait Description Patient too dizzy at this time to safely assess. Balance Sitting Static: Good Sitting Dynamic: Good Standing Static: Fair Standing Dynamic: Fair Assessment/Needs Patient tolerated treatment poorly. Reports dizziness while in bed which increases significantly with sitting at EOB. Patient requires SBA/CGA for all observed bed mobility and transfers. Patient unable to tolerate sitting EOB more than 2-3 minutes due to increase in dizziness. Patient in bed post treatment with all needs met, nursing notified, call light in reach. Rehab Potential: Fair PT Scutcher Tender Goals Scutcher Tender Goals PT Detention Goals Time Frame: Mar 07, 2023 Roll Left & Right (QC): 6 Sit to Lying (QC): 6 Lying-Sitting on Side/Bed(QC): 6 Sit to Stand (QC): 6 Chair/Moy-vi-Pparz Xfer(QC): 6 Toilet Transfer (QC): 6 Does the Patient Walk: Yes Walk 10 feet (QC): 6 Walk 50ft with 2 Turns (QC): 6 Walk 150 ft (QC): 6 1 Step (curb) (QC): 4 4 Steps (QC): 4 12 Steps (QC): 4 PT Plan Problem List Problem List: Activity Tolerance, Functional Strength, Safety, Balance, Gait, Transfer, Bed Mobility, ROM Treatment/Plan Treatment Plan: Continue Plan of Care Treatment Plan: Bed Mobility, Education, Functional Activity Patricia, Functional Strength, Group Therapy, Gait, Safety, Therapeutic Exercise, Transfers Treatment Duration: Mar 12, 2023 Frequency: 6 times per week Estimated Hrs Per Day: .25 hour per day Patient and/or Family Agrees t: Yes Safety Risks/Education Patient Education: Transfer Techniques Teaching Recipient: Patient Teaching Methods: Demonstration, Discussion Response to Teaching: Verbalize Understanding, Return Demonstration Time Time In: 1345 Time Out: 1400 DATE: Feb 09, 2023 Total Billed Treatment Time: 15 Total Billed Treatment Visit, LINDA HOLLIS PT Feb 09, 2023 14:09
[2023-02-09] MEDS ORDERED: RT-ALBUTEROL/IPRATROPIUM 3 ML (DUONEB) VIAL INH PRN (14:45)
--- NOTE | 2023-02-09 14:58 | Occupational Therapy Eval ---
OT Evaluation-General/PLF Medical Diagnosis Admission Date Feb 09, 2023 at 13:16 Medical Diagnosis: Tachycardia, dizziness Onset Date: Feb 09, 2023 Therapy Diagnosis Therapy Diagnosis: dizziness,/weakness Precautions Precautions/Isolations: Fall Prevention, Standard Precautions Referral Physician: Dr. Sorensen Referral Reason: Activity Tolerance, Self Care, Evaluation/Treatment, Strengthening/ROM Medical History Pertinent Medical History: Atrial Fib, HTN Additional Medical History Frequent hospitalizations for cardiac issues. Current History Patient was at a friends home and became very dizzy, SOA and extremely tired, drove self to ER. Social History Home: Multilevel (house on stilts, [place] area) Current Living Status: Significant Other Entry Into Home: Stairs With Railing Steps Into Home: 14 ADL-Prior Level of Function SCALE: Activities may be completed with or without assistive devices. 1-Jdyaslpfxn-jwrasip completes the activity by him/herself with no assistance from a helper. 5-Set-up or Clean-up Assistance-helper sets up or cleans up; patient completes activity. [place] assists only prior to or following the activity. 4-Supervision or Touching Assistance-helper provides verbal cues and/or touching/steadying and/or contact guard assistance as patient completes activity. Assistance may be provided throughout the activity or intermittently. 3-Partial/Moderate Assistance-helper does LESS THAN HALF the effort. [place] lifts, holds or supports trunk or limbs, but provides less than half the effort. 2-Substantial/Maximal Assistance-helper does MORE THAN HALF the effort. [place] lifts or holds trunk or limbs and provides more than half the effort. 2-Eubkranet-hqnkjv does ALL the effort. Patient does none of the effort to complete the activity. Or, the assistance of 2 or more helpers is required for the patient to complete the activity. If activity was not attempted, code reason: 7-Patient Refused. 9-Not Applicable-not attempted and the patient did not perform the activity before the current illness, exacerbation or injury. 10-Not Attempted due to Environmental Limitations-(lack of equipment, weather restraints, etc.). 88-Not Attempted due to Medical Conditions or Safety Concerns. 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 performance completed in bed d/t dizziness w/ rolling and elevating HOB Pain Numeric Pain Scale: 4 (mostly dizzy, tired ) Mental Status/Objective Patient Orientation: Person, Place, Time, Situation Attachments: IV, Telemetry Current Hearing Aids: No Dentures/Partials: No Hand Dominance: Right Upper Extremity ROM BUE ROM WFLS Upper Extremity Coordination intact Upper Extremity Sensation intact Upper Extremity Strength -4/5 ADL-Treatment Eating (QC): 5 Oral Hygiene (QC): 5 Shower/Bathe Self (QC): 7 On/Off Footwear (QC): 5 (supine /reclined in bed) Education OT Patient Education: Correct positioning, Energy conservation, Modified ADL techniques, Progress toward Goal/Update tx plan, Purpose of tx/functional activities, Reviewed precautions, Rehab process, Safety issues, Transfer techniques, Use of adapted equipment Teaching Recipient: Patient Response to Teaching: Verbalize Understanding, Reinforcement Needed OT Mass Communications Instructor Goals Half-Way Goals Toileting Hygiene (QC): 6 Upper Body Dressing (QC): 6 Lower Body Dressing (QC): 6 On/Off Footwear (QC): 6 1=Demonstrate adherence to instructed precautions during ADL tasks. 2=Patient will verbalize/demonstrate understanding of assistive devices/modifications for ADL. 3=Patient will improve strength/tolerance for activity to enable patient to perform ADL's. OT Education/Plan Problem List/Assessment Assessment: Decreased Activ Tolerance, Impaired Self-Care Skills Discharge Recommendations Plan/Recommendations: Continue POC Treatment Plan/Plan of Care Treatment,Training & Education: Yes Patient would benefit from OT for education, treatment and training to promote independence in ADL's, mobility, safety and/or upper extremity function for ADL's. Plan of Care: ADL Retraining, Concurrent Therapy, Functional Mobility, Group Exercise/Act as Ind, UE Funct Exercise/Act Treatment Duration: Feb 13, 2023 Frequency: 3 times per week (3-5 times per week) Estimated Hrs Per Day: .25 hour per day Agreement: Yes Rehab Potential: Good remains reclined in bed, Pharmacy in room Time Start Time: 14:20 Stop Time: 14:37 DATE: Feb 09, 2023 Total Time Billed (hr/min): 17 Billed Treatment Time EVM 17 min LUCA BENNETT OT Feb 09, 2023 14:58
[2023-02-09] MEDS ORDERED: guaiFENesin/DM (ROBITUSSIN DM) 10 ML UDC PO NR (15:30)
[2023-02-09] MEDS ORDERED: guaiFENesin (MUCINEX) 600 MG TAB PO NR (15:30)
[2023-02-09] MEDS ORDERED: BENZONATATE 100 MG CAPSULE PO NR (15:30)
[2023-02-09 16:00] VITALS: BP 118/87
--- NOTE | 2023-02-09 16:51 | Consultation-Cardiology ---
HPI-Cardiology Cardiology Consultation Date of Consultation 02/09/23 Date of Admission Time Seen by Provider: 16:46 Indication: Atrial flutter HPI 57-year-old lady with paroxysmal atrial fibrillation/flutter, was discharged recently from the hospital in sinus rhythm, has been resistant or intolerant to multiple medications, has been maintained on propafenone. Returned to the emergency room with generalized fatigue, weakness and palpitation chest discomfort with tachycardia heart rate 120, she is currently in atrial flutter with rapid ventricular response, heart rate improved whenever she is laying down comfortably in bed to the upper 90s lower 100. Still having cough probably secondary to the phrenic nerve injury Home Medications & Allergies Allergies: Coded Allergies: Latex, Natural Rubber (Verified Allergy, Intermediate, Shortness of Breath, PARALIZED DIAHPHRAM, 02/17/22) Home Medication List Reviewed: Yes ZBB-Rpzijh-Jqjmvo Hx Patient Social History Marital Status: Employed/Student: employed Smoking Status: Never a Smoker 2nd Hand Smoke Exposure: No Recent Hopitalizations: No Alcohol Use?: No Immunizations Up To Date Tetanus Booster (TDap): Less than 5yrs Date of Pneumonia Vaccine: Feb 05, 2020 Date of Influenza Vaccine: May 04, 2020 Past Medical History Discussed below Family Medical History Significant Family History: No Pertinent Family Hx Family History: Colon cancer Review of Systems-General Review of Systems Constitutional: No chills, No diaphoresis; dizziness; No malaise; weakness EENTM: see HPI, no symptoms reported Respiratory: see HPI, cough; No dyspnea on exertion, No hemoptysis, No orthopnea, No phlegm; short of breath; No stridor, No wheezing, No other Cardiovascular: see HPI, chest pain; No edema, No Hx of Intervention; palpitations; No syncope, No vascular heart diseas, No other Gastrointestinal: no symptoms reported, see HPI Genitourinary: no symptoms reported, see HPI Musculoskeletal: No back pain, No gout Skin: No change in color, No change in hair/nails Psychiatric/Neurological: No Symptoms Reported, See HPI All Other Systems Reviewed Negative Unless Noted: Yes Reviewed Test Results Reviewed Test Results Lab Laboratory Tests Test 02/09/23 11:00 Range/Units White Blood Count 12.4 H 4.3-11.0 10^3/uL Red Blood Count 5.51 H 3.80-5.11 10^6/uL Hemoglobin 16.0 # 11.5-16.0 g/dL Hematocrit 48 35-52 % Mean Corpuscular Volume 86 80-99 fL Mean Corpuscular Hemoglobin 29 25-34 pg Mean Corpuscular Hemoglobin Concent 34 32-36 g/dL Red Cell Distribution Width 12.9 10.0-14.5 % Platelet Count 375 130-400 10^3/uL Mean Platelet Volume 10.3 9.0-12.2 fL Immature Granulocyte % (Auto) 2 % Neutrophils (%) (Auto) 66 42-75 % Lymphocytes (%) (Auto) 26 12-44 % Monocytes (%) (Auto) 4 0-12 % Eosinophils (%) (Auto) 1 0-10 % Basophils (%) (Auto) 0 0-10 % Neutrophils # (Auto) 8.2 H 1.8-7.8 10^3/uL Lymphocytes # (Auto) 3.3 1.0-4.0 10^3/uL Monocytes # (Auto) 0.5 0.0-1.0 10^3/uL Eosinophils # (Auto) 0.1 0.0-0.3 10^3/uL Basophils # (Auto) 0.0 0.0-0.1 10^3/uL Immature Granulocyte # (Auto) 0.3 H 0.0-0.1 10^3/uL Prothrombin Time 23.6 H 12.2-14.7 SEC INR Comment 2.1 H 0.8-1.4 Activated Partial Thromboplast Time 38 H 24-35 SEC Sodium Level 139 135-145 MMOL/L Potassium Level 3.9 3.6-5.0 MMOL/L Chloride Level 105 98-107 MMOL/L Carbon Dioxide Level 25 21-32 MMOL/L Anion Gap 9 5-14 MMOL/L Blood Urea Nitrogen 19 H 7-18 MG/DL Creatinine 1.06 0.60-1.30 MG/DL Estimat Glomerular Filtration Rate 62 BUN/Creatinine Ratio 18 Glucose Level 132 H 70-105 MG/DL Calcium Level 9.4 8.5-10.1 MG/DL Corrected Calcium 9.5 8.5-10.1 MG/DL Magnesium Level 2.1 1.6-2.4 MG/DL Total Bilirubin 0.5 0.1-1.0 MG/DL Aspartate Amino Transf (AST/SGOT) 22 5-34 U/L Alanine Aminotransferase (ALT/SGPT) 56 H 0-55 U/L Alkaline Phosphatase 108 40-136 U/L Myoglobin 46.3 10.0-92.0 NG/ML Troponin I < 0.028 <0.028 NG/ML B-Type Natriuretic Peptide 61.8 <100.0 PG/ML Total Protein 7.0 6.4-8.2 GM/DL Albumin 3.9 3.2-4.5 GM/DL Lipase 15 8-78 U/L Thyroid Stimulating Hormone (TSH) 3.98 0.35-4.94 UIU/ML Physical Exam Physical Exam Vital Signs Vital Signs - First Documented 02/09/23 10:50 Temp 36.8 Pulse 129 Resp 19 B/P (MAP) 127/88 (101) Pulse Ox 98 O2 Delivery Room Air Capillary Refill : Less Than 3 Seconds Height, Weight, BMI Height: '" Weight: lbs. oz. kg; 32.41 BMI Method: General Appearance: No Apparent Distress, WD/WN HEENT: PERRL/EOMI, TMs Normal, Normal ENT Inspection, Pharynx Normal Neck: Full Range of Motion, Normal Inspection, Non Tender, Supple Respiratory: Chest Non Tender, Lungs Clear, Normal Breath Sounds, No Accessory Muscle Use, No Respiratory Distress Cardiovascular: No Edema, No Gallop, No JVD, No Murmur, Tachycardia Gastrointestinal: Normal Bowel Sounds, No Organomegaly, No Pulsatile Mass, Non Tender Extremity: Normal Capillary Refill, Normal Inspection, Normal Range of Motion Neurologic/Psychiatric: Alert, Oriented x3, No Motor/Sensory Deficits, Normal Mood/Affect, photo manager II-XII Norm as Tested Skin: Normal Color, Warm/Dry A/P-Cardiology Assessment/Plan Paroxysmal atrial fibrillation/flutter Currently in atrial flutter with rapid ventricular response Had history of ablation in the remote past, patient had a total of 4 ablation procedures last procedure was done in January 2022, it was an extensive ablation done at that time. Stable had on and off atrial fibrillation and she was seen by Dr. Ferguson, he had adjusted her pacemaker setting for better detection of the atrial fibrillation I recommended titrating the beta-lorna dose. Underwent LENORE with cardioversion in December 05, 2020. C/o occasional episode of palpitations. Pacemaker sensitivity was adjusted by Dr. Ferguson. Patient was intolerant to amiodarone, Multaq, reports she failed Sotalol, Tikosyn, Flecainide Intolerant to metoprolol due to generalized fatigue. She was referred to for evaluation, seen by Dr. Sanon. 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 Was hospitalized for 2 weeks, recovering slowly. Underwent cardioversion in February 2022 She had another electrical cardioversion done in May 2022. Patient has stopped her medication about 4 to 5 days ago due to family emergency and her traveling. Patient was admitted in atrial flutter with rapid ventricular response, underwent electrical cardioversion on 02/02/2023. Back in atrial flutter with rapid ventricular response Maintained on propafenone. Appears to be failing propafenone also. We are escalating the dose, I will increase the dose to 300 mg 3 times a day Persistent cough status post bronchitis Questionable secondary to phrenic nerve injury Peripheral edema, improved with Lasix. Feeling better. 2D echo was done on May 30, 2022 with normal LV size, EF 55 to 60%, PA pressure 20 mmHg Sinus node dysfunction, history of Medtronic dual-chamber pacemaker, functioning normally. Had it implanted in [place], continue to monitor at this time Generalized fatigue and loss of energy. 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 Had EGD with Dr Valles Hypothyroidism, followed and managed by primary care physician COPD, maintained on bronchodilator. Followed and managed by primary care physician Status post Covid 19 infection in June 2020, still complaining of some dyspnea and fatigue since that infection Nonobstructive carotid artery stenosis per carotid duplex done November 2021. History of kidney stone, underwent cystoscopy and right ureteral stone manipulation and insertion of right double-J with Dr. Jenkins on 02/06/22. s/p stent retrieval Clinical Quality Measures AMI/AHF: ASA po Prior to arrival: ERIKA Ignacio MD Feb 09, 2023 16:51
[2023-02-09] MEDS ORDERED: RIVAROXABAN 20 MG TABLET (XARELTO) PO SCH ×2 (17:00→19:00)
[2023-02-09] MEDS ORDERED: guaiFENesin/DM (ROBITUSSIN DM) 10 ML UDC PO SCH (17:00)
[2023-02-09] MEDS ORDERED: SUMAtriptan 50 MG (IMITREX) TAB PO PRN (17:00)
[2023-02-09] MEDS ORDERED: diazePAM 5 MG TABLET PO PRN (17:00)
[2023-02-09] MEDS ORDERED: HYDROcodone/APAP 7.5 MG/325 MG (LORTAB, LORCET PLUS) TABLET PO PRN (17:00)
[2023-02-09] MEDS ORDERED: RT-ALBUTEROL SULF 2.5 MG/3 ML PRE-MIX VIAL IH PRN (17:00)
[2023-02-09] MEDS ORDERED: FLUTICASONE NASAL SPRAY (FLONASE) 16 GM BTL NS PRN (17:15)
[2023-02-09] MEDS ORDERED: RT-ALBUTEROL HFA 8.5 GM INHALER IH PRN (17:30)
[2023-02-09] MEDS ORDERED: PROMETHAZINE/ CODEINE SYRUP 5 ML UDC PO SCH (17:30)
[2023-02-09] MEDS: guaiFENesin/DM (ROBITUSSIN DM) 10 ML UDC PO SCH ×2 (18:18→23:59)
[2023-02-09 19:43] VITALS: BP 94/78
[2023-02-09] MEDS ORDERED: FUROSEMIDE 40 MG (LASIX) TAB PO SCH (21:00)
[2023-02-09] MEDS ORDERED: OMEGA 3 (FISH OIL) 1000 MG CAP PO SCH (21:00)
[2023-02-09] MEDS ORDERED: PANTOPRAZOLE 40 MG (PROTONIX) TAB PO SCH (21:00)
[2023-02-09] MEDS ORDERED: NON-FORMULARY MEDICATION 1 EA EA (Levocetirizine Dihydrochloride 5 MG) PO SCH (21:00)
[2023-02-09] MEDS ORDERED: KCL 10 MEQ TAB (MICRO K) PO SCH (21:00)
[2023-02-09] MEDS ORDERED: LORATADINE (CLARITIN) 10 MG TAB PO SCH (21:00)
[2023-02-09] MEDS ORDERED: DOCUSATE SODIUM 100 MG CAPSULE PO SCH (21:00)
[2023-02-09] MEDS: BENZONATATE 100 MG CAPSULE PO SCH (21:38)
[2023-02-09] MEDS: guaiFENesin (MUCINEX) 600 MG TAB PO SCH (21:38)
[2023-02-09] MEDS: PROMETHAZINE/ CODEINE SYRUP 5 ML UDC PO SCH (21:38)
[2023-02-09] MEDS ORDERED: BENZONATATE 100 MG CAPSULE PO SCH (22:00)
[2023-02-09] MEDS: TIOTROPIUM INH 4 GM (SPIRIVA Respimat) IH SCH (22:53)
[2023-02-10] VITALS (24 sets, daily range): BP systolic 92–113; BP diastolic 59–85
[2023-02-10] MEDS: PROMETHAZINE/ CODEINE SYRUP 5 ML UDC PO SCH ×2 (03:48→09:40)
[2023-02-10 04:14] LABS: HEMATOCRIT 42 % (35-52); HEMOGLOBIN 14.2 g/dL (11.5-16.0); MEAN CORPUSCULAR HEMOGLOBIN 30 pg (25-34); MEAN CORPUSCULAR HGB CONC 34 g/dL (32-36); MEAN CORPUSCULAR VOLUME 87 fL (80-99); MEAN PLATELET VOLUME 10.2 fL (9.0-12.2); PLATELET COUNT 272 10^3/uL (130-400)
[2023-02-10 04:44] LABS: CALCIUM 8.5 MG/DL (8.5-10.1); CREATININE SERUM 0.74 MG/DL (0.60-1.30); POTASSIUM 3.6 MMOL/L (3.6-5.0)
[2023-02-10] MEDS: guaiFENesin/DM (ROBITUSSIN DM) 10 ML UDC PO SCH (06:04)
[2023-02-10] MEDS: TIOTROPIUM INH 4 GM (SPIRIVA Respimat) IH SCH (07:12)
--- NOTE | 2023-02-10 07:52 | Physical Therapy Daily Note ---
PT Daily Note-Current Subjective Patient reports she is better today and is up independently in room. Agrees to PT. Pain Section J - Health Conditions 1. Rarely or not at all 2. Occasionally 3. Frequently 4. Almost constantly 8. Unable to answer Pain Effect on Sleep: 1 Pain Interference with Therapy: 1 Pain Interference w/Day-to-Day: 1 Mental Status Patient Orientation: Normal For Age Transfers SCALE: Activities may be completed with or without assistive devices. 5-Aubfrwdiil-jhmisax completes the activity by him/herself with no assistance from a helper. 5-Set-up or Clean-up Assistance-helper sets up or cleans up; patient completes activity. [place] assists only prior to or following the activity. 4-Supervision or Touching Assistance-helper provides verbal cues and/or touching/steadying and/or contact guard assistance as patient completes activity. Assistance may be provided throughout the activity or intermittently. 3-Partial/Moderate Assistance-helper does LESS THAN HALF the effort. [place] lifts, holds or supports trunk or limbs, but provides less than half the effort. 2-Substantial/Maximal Assistance-helper does MORE THAN HALF the effort. [place] lifts or holds trunk or limbs and provides more than half the effort. 4-Dczpfbtcq-hbsrxl does ALL the effort. Patient does none of the effort to complete the activity. Or, the assistance of 2 or more helpers is required for the patient to complete the activity. If activity was not attempted, code reason: 7-Patient Refused. 9-Not Applicable-not attempted and the patient did not perform the activity before the current illness, exacerbation or injury. 10-Not Attempted due to Environmental Limitations-(lack of equipment, weather restraints, etc.). 88-Not Attempted due to Medical Conditions or Safety Concerns. Sit to Lying (QC): 6 Lying to Sitting/Side of Bed(Q: 6 Sit to Stand (QC): 6 Weight Bearing Right Lower Extremity: Right Full Weight Bearing Left Lower Extremity: Left Full Weight Bearing Gait Training Distance: 225' Walk 10 feet (QC): 6 Walk 50 ft with 2 Turns(QC): 6 Walk 150 ft (QC): 6 Gait Assistive Device: None safe and functional with no deviation Assessment Patient much improved with all gross motor skills. PT to dismiss patient from services at this time. PT [facility] Goals Agile Project Manager Goals PT Agile Project Manager Goals Time Frame: Mar 07, 2023 Roll Left & Right (QC): 6 Sit to Lying (QC): 6 Lying-Sitting on Side/Bed(QC): 6 Sit to Stand (QC): 6 Chair/Aib-nb-Agirm Xfer(QC): 6 Toilet Transfer (QC): 6 Does the Patient Walk: Yes Walk 10 feet (QC): 6 Walk 50ft with 2 Turns (QC): 6 Walk 150 ft (QC): 6 1 Step (curb) (QC): 4 4 Steps (QC): 4 12 Steps (QC): 4 PT Plan Treatment/Plan Treatment Plan: Discontinue PT Treatment Plan: Bed Mobility, Education, Functional Activity Patricia, Functional Strength, Group Therapy, Gait, Safety, Therapeutic Exercise, Transfers Treatment Duration: Mar 12, 2023 Frequency: 6 times per week Estimated Hrs Per Day: .25 hour per day Patient and/or Family Agrees t: Yes Time Time In: 740 Time Out: 750 DATE: Feb 10, 2023 Total Billed Treatment Time: 10 Total Billed Treatment 1 visit FA 10 min DAREN VAZQUEZ PT Feb 10, 2023 07:52
[2023-02-10] MEDS ORDERED: MIDAZOLAM 5 MG/5 ML (VERSED) VIAL ONE (08:02)
[2023-02-10] MEDS ORDERED: fentaNYL INJ 100 MCG/2 ML AMP ONE (08:02)
--- NOTE | 2023-02-10 08:20 | Cardioversion ---
Cardioversion PROCEDURE PHYSICIAN: Erika Ruvalcaba DATE OF PROCEDURE: 02/10/23 DIRECT EXTERNAL ELECTRICAL CARDIOVERSION: Indications: Atrial flutter with rapid ventricular response Preoperative diagnoses: Atrial flutter with rapid ventricular rate Postoperative diagnosis: Sinus rhythm, Successful Electrical Cardioversion History: 57-year-old lady with recurrent atrial flutter, has been maintained on propafenone, admitted with atrial flutter and rapid ventricular response, I will increase the propafenone dose and we will proceed with cardioversion Anesthesia: By Anesthesia services Complications: None Specimen: None Contrast: 0 Flouroscopy: none Procedure Details: The patient was brought the metallurgical laboratory assistant after informed consent was taken, all the risks and complications were explained including the risk of stroke. Electrical cardioversion was carried out with anesthesia support with propofol. 120 joules of synchronized shock was delivered through external patches which promptly restored sinus rhythm. The patient tolerated the procedure well. Conclusions: Successful electrical cardioversion terminating atrial flutter ERIKA RUVALCABA MD Feb 10, 2023 08:20
--- NOTE | 2023-02-10 08:21 | Cardiology Progress Note ---
Subjective Date Seen by Provider: Feb 10, 2023 Time Seen by Provider: 08:20 Subjective/Events-last exam Patient was seen at bedside, laying down comfortably, still complaining of cough and fatigue Objective-Cardiology Exam Last Set of Vital Signs Vital Signs 02/10/23 02/10/23 07:18 08:14 Temp 36.2 Pulse 92 Resp 12 B/P (MAP) 105/76 (86) Pulse Ox 96 O2 Delivery Room Air I&O Intake and Output 02/10/23 00:00 Intake Total 450 ml Balance 450 ml Intake Oral 450 ml # Voids 3 # Bowel Movements 1 Daily Weight Change No General: Alert, Oriented X3, Cooperative HEENT: Atraumatic, PERRLA Neck: Supple, No JVD, No Thyromegaly Lungs: Clear to Auscultation, Normal Air Movement Heart: Regular Rate, Normal S1, Normal S2, No Murmurs Abdomen: Normal Bowel Sounds, Soft, No Tenderness, No Hepatosplenomegaly, No Masses Extremities: No Clubbing, No Cyanosis, No Edema, Normal Pulses, No Tenderness/Swelling Skin: No Rashes, No Breakdown, No Significant Lesion Neuro: Normal Gait, Normal Speech, Strength at 5/5 X4 Ext, Normal Tone, Sensation Intact Psych/Mental Status: Mental Status NL, Mood NL Results Lab Laboratory Tests 02/09/23 11:00 02/10/23 03:45 A/P-Cardiology Admission Diagnosis Paroxysmal atrial flutter Tachycardia Hypertension Hyperlipidemia Assessment/Plan Paroxysmal atrial fibrillation/flutter Currently in atrial flutter with rapid ventricular response Had history of ablation in the remote past, patient had a total of 4 ablation procedures last procedure was done in January 2022, it was an extensive ablation done at that time. Stable had on and off atrial fibrillation and she was seen by Dr. Ferguson, he had adjusted her pacemaker setting for better detection of the atrial fibrillation I recommended titrating the beta-lorna dose. Underwent LENORE with cardioversion in December 05, 2020. C/o occasional episode of palpitations. Pacemaker sensitivity was adjusted by Dr. Ferguson. Patient was intolerant to amiodarone, Multaq, reports she failed Sotalol, Tikosyn, Flecainide Intolerant to metoprolol due to generalized fatigue. She was referred to for evaluation, seen by Dr. Sanon. 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 Was hospitalized for 2 weeks, recovering slowly. Underwent cardioversion in February 2022 She had another electrical cardioversion done in May 2022. Patient has stopped her medication about 4 to 5 days ago due to family emergency and her traveling. Patient was admitted in atrial flutter with rapid ventricular response, u nderwent electrical cardioversion on 02/02/2023. Back in atrial flutter with rapid ventricular response Maintained on propafenone. Appears to be failing propafenone also. I increase the dose to 300 mg 3 times a day and proceeded with cardioversion on February 10, 2023 Continue to monitor tolerance and response Persistent cough status post bronchitis Questionable secondary to phrenic nerve injury Managed by medical team Peripheral edema, improved with Lasix. Feeling better. 2D echo was done on May 30, 2022 with normal LV size, EF 55 to 60%, PA pressure 20 mmHg Sinus node dysfunction, history of Medtronic dual-chamber pacemaker, functioning normally. Had it implanted in [place], continue to monitor at this time Generalized fatigue and loss of energy. 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 Had EGD with Dr Valles Hypothyroidism, followed and managed by primary care physician COPD, maintained on bronchodilator. Followed and managed by primary care physician Status post Covid 19 infection in June 2020, still complaining of some dyspnea and fatigue since that infection Nonobstructive carotid artery stenosis per carotid duplex done November 2021. History of kidney stone, underwent cystoscopy and right ureteral stone manipulation and insertion of right double-J with Dr. Jenkins on 02/06/22. s/p stent retrieval ERIKA DE LA ROSA MD Feb 10, 2023 08:21
--- NOTE | 2023-02-10 08:25 | Anesthesia-General Post-Op ---
MAC Patient Condition Mental Status/LOC: Same as Preop Cardiovascular: Satisfactory Nausea/Vomiting: Absent Respiratory: Satisfactory Pain: Controlled Complications: Absent Post Op Complications Complications None Follow Up Care/Instructions Patient Instructions None needed. Anesthesiology Discharge Order Discharge Order Patient is doing well, no complaints, stable vital signs, no apparent adverse anesthesia problems. No complications reported per nursing. GEMMA LEIGH CRNA Feb 10, 2023 08:25
[2023-02-10] MEDS ORDERED: proPOfol 200 MG/20 ML (DIPRIVAN) VIAL IV ONE (08:50)
[2023-02-10] MEDS ORDERED: dilTIAZem ER 240 MG CAPSULE PO SCH (09:00)
[2023-02-10] MEDS ORDERED: FLUTICASONE/VILANTEROL 200 MCG 14'S (BREO) IH SCH (09:00)
[2023-02-10] MEDS: guaiFENesin (MUCINEX) 600 MG TAB PO SCH (09:40)
[2023-02-10] MEDS: BENZONATATE 100 MG CAPSULE PO SCH (09:40)
[2023-02-10] MEDS: dilTIAZem ER 240 MG CAPSULE PO SCH (09:40)
[2023-02-10] MEDS ORDERED: PROP300T PO (10:18)
[2023-02-10] MEDS ORDERED: PROPAFENONE 300 MG PO SCH (10:30)
--- NOTE | 2023-02-10 16:44 | Discharge Summary ---
Discharge Summary Hospital Course Problems/Dx: (1) Atrial flutter with rapid ventricular response Status: Acute Hospital Course Date of Admission: Feb 09, 2023 at 13:16 Admission Diagnosis : Atrial flutter with rapid ventriular response Family Physician/Provider: Jimy Bennett MD Date of Discharge: 02/10/23 Discharge Diagnosis: Atrial flutter with rapid ventricular response Hospital Course: Maria Fernanda Rondon is a 57 year old female with history of difficult to control a trial flutter with multiple ablations and cardioversions who was admitted with atrial flutter with rapid ventricular response. Cardiology was consulted and assisted with her care. She underwent a LENORE cardioversion which was successful. Her Propafenone was increased. She should follow up with Dr. Ruvalcaba, cardiology, as scheduled. She should also follow up with her PCP, Dr. Bennett, in about a week. She was discharged home in stable condition. Labs and Pending Lab Test: Laboratory Tests 02/10/23 03:45: White Blood Count 7.0, Red Blood Count 4.82, Hemoglobin 14.2, Hematocrit 42, Mean Corpuscular Volume 87, Mean Corpuscular Hemoglobin 30, Mean Corpuscular Hemoglobin Concent 34, Red Cell Distribution Width 13.0, Platelet Count 272, Mean Platelet Volume 10.2, Sodium Level 140, Potassium Level 3.6, Chloride Level 106, Carbon Dioxide Level 22, Anion Gap 12, Blood Urea Nitrogen 17, Creatinine 0.74, Estimat Glomerular Filtration Rate 95, BUN/Creatinine Ratio 23, Glucose Level 118H, Calcium Level 8.5 Home Meds Active Propafenone HCl 300 Mg Tablet 300 Mg PO TID 30 Days Prednisone 10 Mg Tab.ds.pk 10 Mg PO DAILY Take 6 tabs(60mg)daily,decrease by 1 tab(10mg)every other day. Promethazine-Codeine Solution (Promethazine HCl/Codeine) 6.25 Mg-10 Mg/5 Ml Syrup 5 Ml PO Q6H Guaifenesin Dm Syrup (Guaifenesin/Dextromethorphan) 100 Mg-10 Mg/5 Ml Syrup 10 Ml PO Q4H Tessalon Perles (Benzonatate) 100 Mg Capsule 200 Mg PO Q8HR HYDROcodone/APAP 7.5/325 TAB (Acetaminophen/Hydrocodone Bitart) 1 Ea Tablet 1 Ea PO Q4H PRN Breo Ellipta 200-25 Mcg INH (Fluticasone/Vilanterol) 200 Mcg-25 Mcg/Dose Blst.w.dev 0 Each IH DAILY Use daily Reported Diltiazem 24Hr ER (Diltiazem HCl) 240 Mg Cap.er.24h 240 Mg PO DAILY Acetaminop-Codeine 120-12 mg/5 (Acetaminophen with Codeine) 120 Mg-12 Mg/5 Ml Solution 5 Ml PO Q6H PRN Spiriva Respimat 2.5MCG/ACTUATION (Tiotropium [place]) 2.5 Mcg/Actuation Mist.inhal 1 Puff IH BID Potassium Chloride 10 Meq Tab.er.prt 10 Meq PO HS Flonase Allergy Relief (Fluticasone Propionate) 50 Mcg/Actuation [place].susp 1 [place] NS DAILY PRN Ventolin Hfa (Albuterol Sulfate) 1 Puff Puff 2 Puff INH Q4H PRN Colace (Docusate Sodium) 100 Mg Capsule 100 Mg PO HS Levocetirizine Dihydrochloride 5 Mg Tablet 5 Mg PO HS [Vit C/Vit D/Zinc] 1 Ea PO HS Fish Oil 1,200 mg Fish Oil (Fish Oil/Dha/Epa) 1,200 Mg-144 Mg-216 Mg Capsule 1 Each PO HS Vitamin E (Vitamin E Mixed) 1,000 Unit Capsule 1,000 Unit PO HS Furosemide 40 Mg Tablet 40 Mg PO HS Xarelto (Rivaroxaban) 20 Mg Tablet 20 Mg PO 1900 Sumatriptan Succinate 50 Mg Tablet 50 Mg PO UD PRN TAKE 1 TABLET AT ONSET OF MIGRAINE AND MAY REPEAT 1 DOSE AFTER 2 HOURS IF NO RELIEF Albuterol Sulfate 2.5 Mg/3 Ml (0.083 %) Vial.neb 3 Ml NEB Q4H PRN Pantoprazole Sodium 40 Mg Tablet.dr 40 Mg PO HS Diazepam 5 Mg Tablet 5 Mg PO BID PRN Assessment/Pt Instructions See instructions Discharge Planning: <30 minutes discharge planning Discharge Instructions Discharge Diet: Low Sodium Diet Activity as Tolerated: Yes Consultations Cardiology Discharge Physical Examination Vital Signs Vital Signs Date Time Temp Pulse Resp B/P (MAP) Pulse Ox O2 Delivery O2 Flow Rate FiO2 02/10/23 11:00 79 9 106/75 (85) 97 Room Air 02/10/23 07:18 36.2 General Appearance: No Apparent Distress, Obese Respiratory: Lungs Clear, No Respiratory Distress Cardiovascular: Regular Rate, Rhythm, No Murmur Gastrointestinal: Normal Bowel Sounds, Soft Extremity: Normal Inspection, No Pedal Edema Skin: Normal Color, Warm/Dry Neurologic/Psychiatric: Alert, Normal Mood/Affect Allergies: Coded Allergies: Latex, Natural Rubber (Verified Allergy, Intermediate, Shortness of Breath, PARALIZED DIAHPHRAM, 02/17/22) Copy Copies To 1: JIMY BENNETT MD Discharge Summary Date of Admission Feb 09, 2023 at 13:16 Date of Discharge Feb 10, 2023 at 11:48 Discharge Date: Feb 10, 2023 Discharge Time: 1100 Admission Diagnosis AFlutter with RVR Consults/Procedures Consulations Cardiology Procedures LENORE cardioversion Discharge Diagnosis (1) Atrial flutter with rapid ventricular response Status: Acute Clinical Quality Measures AMI/AHF: ASA po Prior to arrival: ANDERSON Marques MD Feb 10, 2023 16:44
== END 2023-02-10 11:48 | disposition home or self-care (01) ==
LOC: EDUNIT# 10:46 → ER 10:47 → UNDOADMOB 13:16 → CSD 13:16 → UNDODISOB 02-10 11:48
PROVIDERS: ADMIT Family Medicine; ATTEND Internal Medicine
DX: I48.92 Unspecified atrial flutter (principal); I48.0 Paroxysmal atrial fibrillation; I10 Essential (primary) hypertension; E78.5 Hyperlipidemia, unspecified; R00.0 Tachycardia, unspecified; R60.0 Localized edema; I49.5 Sick sinus syndrome; I65.29 Occlusion and stenosis of unspecified carotid artery; I34.0 Nonrheumatic mitral (valve) insufficiency; K21.9 Gastro-esophageal reflux disease without esophagitis; E03.9 Hypothyroidism, unspecified; J44.9 Chronic obstructive pulmonary disease, unspecified; Z79.899 Other long term (current) drug therapy; Z98.890 Other specified postprocedural states; Z86.16 Personal history of COVID-19; Z87.442 Personal history of urinary calculi
CPT/HCPCS: 71045; 80048; 80053; 83690; 83735; 83874; 83880; 84443; 84484; 85025; 85027; 85610; 85730; 93005 ×2; 93041; 97162; 97166; 97530; 99284; G0378; 36415